=== PATIENT | female | born 1955 | race Hispanic/Latino ===

== ENCOUNTER 2017-07-06 08:30 | Observation (INO) | payer OTHER ==
[2017-07-06] MEDS ORDERED: NA CHLORIDE 0.9% 500 ML ONE (09:53)
[2017-07-06] MEDS ORDERED: ONDANSETRON 4 MG/2 ML VIAL ONE (10:06)
[2017-07-06] MEDS ORDERED: FAMOTIDINE 20 MG/2 ML VIAL IV ONE (10:06)
[2017-07-06] MEDS ORDERED: METRONIDAZOLE 500mg IVPB 500 MG/100 ML BAG IV ONE (10:06)
[2017-07-06] MEDS ORDERED: CIPROFLOXACIN 400mg IV 400 MG/200 ML BAG IV ONE (10:06)
[2017-07-06] MEDS ORDERED: FENTANYL CITR 100 MCG/2 ML ONE (10:08)
[2017-07-06 10:10] LABS: Potassium 3.5 mEq/L (3.6-5.0)
[2017-07-06 10:19] LABS: CKMB Creatine Kinase MB 1.1 ng/ml (0.3-4.0)
[2017-07-06 10:47] LABS: Absolute Lymphocytes (CBC) 0.7 K/uL (0.7-4.9); Absolute Monocytes 0.8 K/uL (0.1-1.3); Absolute Neutrophil 8.5 K/uL (1.8-8.0); Basophils % 0.2 % (0-1.3); Eosinophils % 1.2 % (0-4.4); Hematocrit 40.6 % (36.0-45.0); Lymphocytes % 7.1 % (15.3-44.8); MCH 29.2 pg (27.0-35.0); MCV 88.5 fL (80-100); MPV 8.8 fL (7.6-11.3); RBC Red Blood Cell Count 4.59 M/uL (3.86-4.86)
--- NOTE | 2017-07-06 10:47 | RAD REPORT ---
EXAM DESCRIPTION: RAD - Chest Single View - 07/06/2017 9:28 am CLINICAL HISTORY: Chest pain. COMPARISON: 03/16/2017, 10/31/2011 FINDINGS: Portable technique limits examination quality. The lungs are grossly clear. The heart is normal in size. No displaced fractures. IMPRESSION: No acute intrathoracic process suspected.
[2017-07-06 10:58] LABS: Albumin 3.6 g/dL (3.2-5.5); Bilirubin Direct 0.2 mg/dL (0-0.2); Bilirubin Total 0.9 mg/dL (0.3-1.2)
[2017-07-06 10:59] LABS: Protime INR 1.05
[2017-07-06 11:01] LABS: Magnesium 1.4 mg/dL (1.8-2.5)
--- NOTE | 2017-07-06 11:20 | EDPHYS ---
Physician Documentation [facility] Name: Kathia Phipps Age: 61 yrs Sex: Female : 1955 Arrival Date: 07/06/2017 Time: 08:33 Bed 6 Private MD: Noa Riley ED Physician Selwyn Muir HPI: 07/06 09:38 This 61 yrs old Female presents to ER via Wheelchair with complaints of jessica Diarrhea, Nausea. 09:38 The patient presents to the emergency department with diarrhea, abdominal pain, of the jessica epigastric area, right upper quadrant and left upper quadrant. Onset: The symptoms/episode began/occurred 2 day(s) ago. Possible causes: unknown. The symptoms are aggravated by nothing. The symptoms are alleviated by nothing. Associated signs and symptoms: The patient has no apparent associated signs or symptoms. Severity of symptoms: At their worst the symptoms were mild moderate in the emergency department the symptoms are unchanged. Historical: - Allergies: 09:12 Morphine; iw 09:12 PENICILLINS; iw - Home Meds: 09:12 topiramate 50 mg oral tab 1 tab 2 times per day [Active]; metoprolol succinate 50 mg iw Oral Tb24 1 tab once daily [Active]; amlodipine 10 mg tab 1 tab once daily [Active]; pravastatin 20 mg Oral tab 1 tab once daily [Active]; Synthroid 200 mcg Oral tab 1 tab once daily [Active]; losartan 100 mg Oral tab 1 tab once daily [Active]; doxazosin 1 mg Oral tab 1 tab once daily [Active]; Lyrica 150 mg Oral 3 times per day [Active]; Januvia 50 mg Oral tab 1 tabs once daily [Active]; Savella 100 mg Oral tab 1 tab 2 times per day [Active]; pentoxifylline 400 mg Oral TbER 1 tab daily [Active]; Levemir 100 unit/mL subcutaneous soln 55 unit twice a day [Active]; 10:51 acetaminophen-codeine 300-30 mg Oral tab 1 tab every 4-6 hours [Active]; furosemide 80 rv mg Oral tab 1 tab once daily [Active]; insuline detemir pen [Active]; Lyrica Oral 1 cap [Active]; - PMHx: 09:12 Diabetes - IDDM; Fibromyalgia; Hypertension; Sleep Apnea; iw - PSHx: 09:12 heel spur; Tubal ligation; iw - Immunization history:: Adult Immunizations. - Ebola Screening: : Patient negative for fever greater than or equal to 101.5 degrees Fahrenheit, and additional compatible Ebola Virus Disease symptoms Patient denies exposure to infectious person Patient denies travel to an Ebola-affected area in the 21 days before illness onset No symptoms or risks identified at this time. - Social history:: Smoking status: Patient/guardian denies using tobacco, never smoked. ROS: 09:39 Constitutional: Negative for fever, chills, and weight loss, Eyes: Negative for injury, jessica pain, redness, and discharge, ENT: Negative for injury, pain, and discharge, Neck: Negative for injury, pain, and swelling, Cardiovascular: Negative for chest pain, palpitations, and edema, Respiratory: Negative for shortness of breath, cough, wheezing, and pleuritic chest pain, Back: Negative for injury and pain, : Negative for injury, bleeding, discharge, and swelling, MS/Extremity: Negative for injury and deformity, Skin: Negative for injury, rash, and discoloration, Neuro: Negative for headache, weakness, numbness, tingling, and seizure, Psych: Negative for depression, anxiety, suicide ideation, homicidal ideation, and hallucinations, Allergy/Immunology: Negative for hives, rash, and allergies, Endocrine: Negative for neck swelling, polydipsia, polyuria, polyphagia, and marked weight changes, Hematologic/Lymphatic: Negative for swollen nodes, abnormal bleeding, and unusual bruising. 09:39 Abdomen/GI: Positive for abdominal pain, of the epigastric area, right upper quadrant and left upper quadrant. Exam: 09:39 Constitutional: This is a well developed, well nourished patient who is awake, alert, jessica and in no acute distress. Head/Face: Normocephalic, atraumatic. Eyes: Pupils equal round and reactive to light, extra-ocular motions intact. Lids and lashes normal. Conjunctiva and sclera are non-icteric and not injected. Cornea within normal limits. Periorbital areas with no swelling, redness, or edema. ENT: Nares patent. No nasal discharge, no septal abnormalities noted. Tympanic membranes are normal and external auditory canals are clear. Oropharynx with no redness, swelling, or masses, exudates, or evidence of obstruction, uvula midline. Mucous membranes moist. Neck: Trachea midline, no thyromegaly or masses palpated, and no cervical lymphadenopathy. Supple, full range of motion without nuchal rigidity, or vertebral point tenderness. No Meningismus. Chest/axilla: Normal chest wall appearance and motion. Nontender with no deformity. No lesions are appreciated. Cardiovascular: Regular rate and rhythm with a normal S1 and S2. No gallops, murmurs, or rubs. Normal PMI, no JVD. No pulse deficits. Respiratory: Lungs have equal breath sounds bilaterally, clear to auscultation and percussion. No rales, rhonchi or wheezes noted. No increased work of breathing, no retractions or nasal flaring. Back: No spinal tenderness. No costovertebral tenderness. Full range of motion. Skin: Warm, dry with normal turgor. Normal color with no rashes, no lesions, and no evidence of cellulitis. MS/ Extremity: Pulses equal, no cyanosis. Neurovascular intact. Full, normal range of motion. Neuro: Awake and alert, GCS 15, oriented to person, place, time, and situation. Cranial nerves II-XII grossly intact. Motor strength 5/5 in all extremities. Sensory grossly intact. Cerebellar exam normal. Normal gait. Psych: Awake, alert, with orientation to person, place and time. Behavior, mood, and affect are within normal limits. 09:39 Abdomen/GI: Inspection: abdomen appears normal, Bowel sounds: normal, Palpation: mild abdominal tenderness, in the epigastric area, right upper quadrant and left upper quadrant, Liver: no appreciated palpable abnormalities, Hernia: not appreciated. Vital Signs: 09:06 BP 165 / 79; Pulse 99; Resp 20; Temp 98.4(TE); Pulse Ox 98% on R/A; Weight 174.63 kg; iw Height 5 ft. 2 in. (157.48 cm); Pain 10/10; 10:23 BP 164 / 140; Pulse 93; Resp 18; Pulse Ox 99% ; rv 10:53 BP 142 / 81; Pulse 98; Resp 18; Pulse Ox 100% ; rv 11:18 BP 133 / 82; Pulse 95; Resp 17; Pulse Ox 100% on R/A; hb 12:00 BP 132 / 80; Pulse 80; Resp 17; Pulse Ox 100% on R/A; hb 13:00 BP 140 / 82; Pulse 88; Resp 18; Pulse Ox 100% on R/A; hb 09:06 Body Mass Index 70.42 (174.63 kg, 157.48 cm) iw MDM: 09:00 Patient medically screened. [facility] 09:39 Data reviewed: vital signs, nurses notes, lab test result(s), EKG, radiologic studies, [facility] CT scan, plain films. 07/06 09:08 Order name: Basic Metabolic Panel [facility] 07/06 09:08 Order name: BNP [facility] 07/06 09:08 Order name: CBC with Diff; Complete Time: 11:09 [facility] 07/06 09:08 Order name: Ckmb; Complete Time: 11:09 [facility] 07/06 09:08 Order name: CPK; Complete Time: 11:09 [facility] 07/06 09:08 Order name: LFT's; Complete Time: 11:09 [facility] 07/06 09:08 Order name: Magnesium; Complete Time: 11:09 [facility] 07/06 09:08 Order name: PT-INR; Complete Time: 11:09 [facility] 07/06 09:08 Order name: Ptt, Activated; Complete Time: 11:09 [facility] 07/06 09:08 Order name: Troponin (emerg Dept Use Only); Complete Time: 11:09 [facility] 07/06 09:08 Order name: Stool Culture [facility] 07/06 09:08 Order name: Fecal Leukocyte Stain [facility] 07/06 09:08 Order name: Basic Metabolic Panel; Complete Time: 11:09 [facility] 07/06 09:08 Order name: BNP B-Type Natriuretic Peptide [facility] 07/06 09:08 Order name: XRAY Chest (1 view); Complete Time: 11:09 [facility] 07/06 09:08 Order name: EKG; Complete Time: 09:09 [facility] 07/06 09:37 Order name: CT Abd/Pelvis - W/Contrast [facility] 07/06 12:26 Order name: CT [facility] 07/06 12:37 Order name: Urine Dipstick--Ancillary (enter results) 07/06 12:42 Order name: Urine Dipstick-Ancillary [facility] 07/06 09:08 Order name: Cardiac monitoring; Complete Time: 10:18 [facility] 07/06 09:08 Order name: EKG - Nurse/Tech; Complete Time: 10:18 [facility] 07/06 09:08 Order name: IV Saline Lock; Complete Time: 10:18 [facility] 07/06 09:08 Order name: Labs collected and sent; Complete Time: 11: [facility] 07/06 09:08 Order name: O2 Per Protocol; Complete Time: 10: [facility] 07/06 09:08 Order name: O2 Sat Monitoring; Complete Time: 10: [facility] 07/06 09:08 Order name: Urine Dipstick-Ancillary (obtain specimen); Complete Time: 10:49 [facility] Administered Medications: 09:35 Not Given (Duplicate Order): NS 0.45 % with KCl 20 mEq/L 1000 ml IV at 125 ml/hr once jessica 09:45 Drug: NS 0.9% 1000 ml Route: IV; Rate: 125 ml/hr; Site: left antecubital; hb 10:45 Follow up: IV Status: Infusion continued upon admission hb 10:21 Drug: Zofran 4 mg Route: IVP; Site: left antecubital; rv 10:37 Follow up: Response: No adverse reaction; Nausea is decreased; Vomiting decreased rv 10:21 Drug: Pepcid 20 mg Route: IVP; Site: left antecubital; rv 10:37 Follow up: Response: No adverse reaction; Pain is decreased; Nausea is decreased; rv Vomiting decreased 10:22 Drug: Cipro 400 mg Volume: 200 ml; Route: IVPB; Infused Over: 60 mins; Site: left rv antecubital; 11:20 Follow up: Response: No adverse reaction; IV Status: Completed infusion hb 10:22 Drug: Flagyl 500 mg Volume: 100 ml; Route: IVPB; Rate: 200 ml/hr; Infused Over: 30 rv mins; Site: left antecubital; 11:00 Follow up: Response: No adverse reaction; IV Status: Completed infusion hb 10:22 Drug: fentaNYL (PF) 25 mcg Route: IVP; Site: left antecubital; rv 10:38 Follow up: Response: No adverse reaction; Pain is decreased rv 10:23 Drug: NS 0.9% 500 ml Volume: 500 ml; Route: IV; Rate: 1 bolus; Site: left antecubital; rv 11:00 Follow up: IV Status: Completed infusion hb 11:27 Drug: Magnesium Sulfate 2 grams Route: IVPB; Infused Over: 2 hrs; Site: left sv antecubital; 13:20 Follow up: Response: No adverse reaction; IV Status: Completed infusion hb 12:23 Drug: Potassium Effervescent Tablet 50 mEq Route: PO; rv 12:39 Follow up: Response: No adverse reaction sv Disposition: 07/06/17 11:19 Hospitalization ordered by Arturo Mercer for Inpatient Admission. Preliminary diagnosis are Diarrhea, unspecified, Abdominal tenderness, Hypokalemia, Type 1 diabetes mellitus, Hypomagnesemia, Obesity, unspecified. - Bed requested for Telemetry/MedSurg (Inpatient). - Status is Inpatient Admission. sv - Condition is Fair. - Problem is new. - Symptoms have improved. UTI on Admission? Yes Signatures: Dispatcher [employer] EDMS Katlin Martínez, RN RN sv Tia Ramirez RN NICOLE dw Selwyn Muir MD MD cha Williams, Irene, RN RN Traci Parada RN RN Amol Calvillo RN RN rv Corrections: (The following items were deleted from the chart) 11:33 11:19 Hospitalization Ordered by Arturo Mercer DO for Inpatient Admission. Preliminary diagnosis is Diarrhea, unspecified; Abdominal tenderness; Hypokalemia; Type 1 diabetes mellitus; Hypomagnesemia; Obesity, unspecified. Bed requested for Telemetry/MedSurg (Inpatient). Status is Inpatient Admission. Condition is Fair. Problem is new. Symptoms have improved. UTI on Admission? Yes. [facility] 13:23 11:33 07/06/2017 11:19 Hospitalization Ordered by Arturo Mercer DO for Inpatient sv Admission. Preliminary diagnosis is Diarrhea, unspecified; Abdominal tenderness; Hypokalemia; Type 1 diabetes mellitus; Hypomagnesemia; Obesity, unspecified. Bed requested for Telemetry/MedSurg (Inpatient). Status is Inpatient Admission. Condition is Fair. Problem is new. Symptoms have improved. UTI on Admission? Yes. dw
--- NOTE | 2017-07-06 11:20 | ER ---
Nurse's Notes [facility] Name: Kathia Phipps Age: 61 yrs Sex: Female : 1955 Arrival Date: 07/06/2017 Time: 08:33 Bed 6 Private MD: Noa Riley Diagnosis: Diarrhea, unspecified;Abdominal tenderness;Hypokalemia;Type 1 diabetes mellitus;Hypomagnesemia;Obesity, unspecified Presentation: 07/06 09:03 Presenting complaint: Patient states: has had diarrhea since Sunday, also has had abd iw cramping. Transition of care: patient was not received from another setting of care. Onset of symptoms was July 02, 2017. Risk Assessment: Do you want to hurt yourself or someone else? Patient reports no desire to harm self or others. Initial Sepsis Screen: Does the patient meet any 2 criteria? No. Patient's initial sepsis screen is negative. Does the patient have a suspected source of infection? No. Patient's initial sepsis screen is negative. Care prior to arrival: None. 09:03 Method Of Arrival: Wheelchair iw 09:03 Acuity: ISSAC 3 iw Historical: - Allergies: 09:12 Morphine; iw 09:12 PENICILLINS; iw - Home Meds: 09:12 topiramate 50 mg oral tab 1 tab 2 times per day [Active]; metoprolol succinate 50 mg iw Oral Tb24 1 tab once daily [Active]; amlodipine 10 mg tab 1 tab once daily [Active]; pravastatin 20 mg Oral tab 1 tab once daily [Active]; Synthroid 200 mcg Oral tab 1 tab once daily [Active]; losartan 100 mg Oral tab 1 tab once daily [Active]; doxazosin 1 mg Oral tab 1 tab once daily [Active]; Lyrica 150 mg Oral 3 times per day [Active]; Januvia 50 mg Oral tab 1 tabs once daily [Active]; Savella 100 mg Oral tab 1 tab 2 times per day [Active]; pentoxifylline 400 mg Oral TbER 1 tab daily [Active]; Levemir 100 unit/mL subcutaneous soln 55 unit twice a day [Active]; 10:51 acetaminophen-codeine 300-30 mg Oral tab 1 tab every 4-6 hours [Active]; furosemide 80 rv mg Oral tab 1 tab once daily [Active]; insuline detemir pen [Active]; Lyrica Oral 1 cap [Active]; - PMHx: 09:12 Diabetes - IDDM; Fibromyalgia; Hypertension; Sleep Apnea; iw - PSHx: 09:12 heel spur; Tubal ligation; iw - Immunization history:: Adult Immunizations. - Ebola Screening: : Patient negative for fever greater than or equal to 101.5 degrees Fahrenheit, and additional compatible Ebola Virus Disease symptoms Patient denies exposure to infectious person Patient denies travel to an Ebola-affected area in the 21 days before illness onset No symptoms or risks identified at this time. - Social history:: Smoking status: Patient/guardian denies using tobacco, never smoked. Screenin:08 Abuse screen: Denies threats or abuse. Denies injuries from another. Nutritional hb screening: No deficits noted. Tuberculosis screening: No symptoms or risk factors identified. Fall Risk Total Orozco Fall Scale indicates Low Risk Score (25-44 pts). Fall prevention measures have been instituted. Side Rails Up X 2 Frequent Obs/Assesments occuring As available Patient and Family Educated on Fall Prevention Program and strategies. Assessment: 09:23 General: Appears in no apparent distress. comfortable, Behavior is calm, cooperative. rv Pain: Denies pain. Neuro: No deficits noted. Neuro: Level of Consciousness is awake, alert, obeys commands, Oriented to person, place, time, situation. Cardiovascular: Capillary refill < 3 seconds. Respiratory: Breath sounds are clear. GI: Reports lower abdominal pain, diarrhea, nausea, vomiting. : No signs and/or symptoms were reported regarding the genitourinary system. EENT: No signs and/or symptoms were reported regarding the EENT system. Derm: No signs and/or symptoms reported regarding the dermatologic system. 10:15 Reassessment: Patient appears in no apparent distress at this time. No changes from sv previously documented assessment. Patient and/or family updated on plan of care and expected duration. Pain level reassessed. Patient is alert, oriented x 3, equal unlabored respirations, skin warm/dry/pink. 11:15 Reassessment: Patient appears in no apparent distress at this time. Patient and/or hb family updated on plan of care and expected duration. Pain level reassessed. Patient is alert, oriented x 3, equal unlabored respirations, skin warm/dry/pink. 12:00 Reassessment: Patient appears in no apparent distress at this time. No changes from hb previously documented assessment. Patient and/or family updated on plan of care and expected duration. Pain level reassessed. Patient is alert, oriented x 3, equal unlabored respirations, skin warm/dry/pink. 13:00 Reassessment: Patient appears in no apparent distress at this time. No changes from hb previously documented assessment. Patient and/or family updated on plan of care and expected duration. Pain level reassessed. Patient is alert, oriented x 3, equal unlabored respirations, skin warm/dry/pink. Vital Signs: 09:06 BP 165 / 79; Pulse 99; Resp 20; Temp 98.4(TE); Pulse Ox 98% on R/A; Weight 174.63 kg; iw Height 5 ft. 2 in. (157.48 cm); Pain 10/10; 10:23 BP 164 / 140; Pulse 93; Resp 18; Pulse Ox 99% ; rv 10:53 BP 142 / 81; Pulse 98; Resp 18; Pulse Ox 100% ; rv 11:18 BP 133 / 82; Pulse 95; Resp 17; Pulse Ox 100% on R/A; hb 12:00 BP 132 / 80; Pulse 80; Resp 17; Pulse Ox 100% on R/A; hb 13:00 BP 140 / 82; Pulse 88; Resp 18; Pulse Ox 100% on R/A; hb 09:06 Body Mass Index 70.42 (174.63 kg, 157.48 cm) iw Vitals: 10:53 Cardiac Rhythm Assessment Regular. rv ED Course: 08:33 Patient arrived in ED. mr 08:33 Noa Riley MD is Private Physician. mr 09:00 Selwyn Muir MD is Attending Physician. [facility] 09:03 Traci Parada, NICOLE is Primary Nurse. hb 09:07 Triage completed. iw 09:25 X-ray completed. Portable x-ray completed in exam room. Patient tolerated procedure ag1 well. 09:26 XRAY Chest (1 view) In Process Unspecified. EDMS 09:26 Inserted saline lock: 20 gauge in left antecubital area, using aseptic technique. rv 09:41 EKG done, by sterile instrument technician. reviewed by Selwyn Muir MD. tc 10:48 Urine collected: clean catch specimen, cloudy, jefry colored. jb1 10:48 Arm band placed on right wrist. rv 10:52 Patient has correct armband on for positive identification. Placed in gown. Bed in low rv position. Call light in reach. Side rails up X2. Adult w/ patient. Pulse ox on. NIBP on. Sitter at bedside. Head of bed elevated. 11:01 Notified ED physician of a critical lab result(s). magnesium-1.4. hb 11:13 Arturo Mercer DO is Hospitalizing Provider. jessica 12:05 CT completed. Patient tolerated procedure well. Patient moved to CT via stretcher. Patient moved back from CT. 12:39 Urine Dipstick--Ancillary (enter results) Sent. sv 12:39 CT Abd/Pelvis - W/Contrast Sent. sv 12:42 No provider procedures requiring assistance completed. Patient admitted, IV remains in sv place. intact. Administered Medications: 09:35 Not Given (Duplicate Order): NS 0.45 % with KCl 20 mEq/L 1000 ml IV at 125 ml/hr once jessica 09:45 Drug: NS 0.9% 1000 ml Route: IV; Rate: 125 ml/hr; Site: left antecubital; hb 10:45 Follow up: IV Status: Infusion continued upon admission hb 10:21 Drug: Zofran 4 mg Route: IVP; Site: left antecubital; rv 10:37 Follow up: Response: No adverse reaction; Nausea is decreased; Vomiting decreased rv 10:21 Drug: Pepcid 20 mg Route: IVP; Site: left antecubital; rv 10:37 Follow up: Response: No adverse reaction; Pain is decreased; Nausea is decreased; rv Vomiting decreased 10:22 Drug: Cipro 400 mg Volume: 200 ml; Route: IVPB; Infused Over: 60 mins; Site: left rv antecubital; 11:20 Follow up: Response: No adverse reaction; IV Status: Completed infusion hb 10:22 Drug: Flagyl 500 mg Volume: 100 ml; Route: IVPB; Rate: 200 ml/hr; Infused Over: 30 rv mins; Site: left antecubital; 11:00 Follow up: Response: No adverse reaction; IV Status: Completed infusion hb 10:22 Drug: fentaNYL (PF) 25 mcg Route: IVP; Site: left antecubital; rv 10:38 Follow up: Response: No adverse reaction; Pain is decreased rv 10:23 Drug: NS 0.9% 500 ml Volume: 500 ml; Route: IV; Rate: 1 bolus; Site: left antecubital; rv 11:00 Follow up: IV Status: Completed infusion hb 11:27 Drug: Magnesium Sulfate 2 grams Route: IVPB; Infused Over: 2 hrs; Site: left sv antecubital; 13:20 Follow up: Response: No adverse reaction; IV Status: Completed infusion hb 12:23 Drug: Potassium Effervescent Tablet 50 mEq Route: PO; rv 12:39 Follow up: Response: No adverse reaction sv Outcome: 11:19 Decision to Hospitalize by Provider. [facility] 12:43 Admitted to Tele accompanied by tech, via wheelchair, room 224, with chart, Report sv called to Dylon RIVERA 12:43 Condition: stable 12:43 Instructed on the need for admit. 13:23 Patient left the ED. sv Signatures: Dispatcher [employer] EDMS Ramesh Cifuentes [email or web address] Katlin Martínez RN RN sv Selwyn Muir MD MD cha Rivera, Maria mr Sylvie, Tita Louis RN RN iw Lisa Acuña, pattern grader EKG Ese Bah ag1 Traci Parada RN RN hb Amol Calvillo RN RN rv Corrections: (The following items were deleted from the chart) 09:13 09:06 BP 165 / 79; Pulse 99bpm; Resp 20bpm; Pulse Ox 98% RA; Temp 98.4F Temporal; Pain iw 10; hb
[2017-07-06] MEDS ORDERED: Magnesium Sulfate 2gm IVPB 2 G/50 ML BAG IV ONE (11:24)
[2017-07-06] MEDS ORDERED: D50W 25 GM/50 ML SYRINGE IV PRN ×2 (11:27→13:26)
[2017-07-06] MEDS ORDERED: GLUCAGON 1 MG/VIAL IM PRN ×2 (11:27→13:26)
[2017-07-06] MEDS ORDERED: POTASSIUM 25 MEQ EFFERV TAB ONE (12:18)
--- NOTE | 2017-07-06 12:26 | RAD REPORT ---
EXAM DESCRIPTION: CTAbdomen Pelvis W Contrast - 07/06/2017 12:09 pm CLINICAL HISTORY: Abdominal pain. COMPARISON: None. TECHNIQUE: Biphasic CT imaging of the abdomen and pelvis was performed with 100 ml non-ionic IV cont rast. All CT scans are performed using dose optimization technique as appropriate and may include automated exposure control or mA/KV adjustment according to patient size. FINDINGS: The lung bases are clear. The liver, spleen, pancreas, adrenal glands and kidneys are within normal limits. Cholelithiasis. No bowel obstruction, free air, free fluid or abscess. Small fat containing umbilical hernia. The anuel endix is normal. No evidence of significant lymphadenopathy. Moderate lumbar degenerative changes. IMPRESSION: No acute intra-abdominal or pelvic finding. Cholelithiasis. Small fat containing umbilical hernia.
[2017-07-06 12:42] LABS: Urine Blood NEGATIVE (NEG); Urine Glucose NEGATIVE (NEG); Urine Protein NEGATIVE (NEG)
--- NOTE | 2017-07-06 13:17 | P.HP ---
Certification for Inpatient Patient admitted to: Observation With expected LOS: <2 Midnights Patient will require the following post-hospital care: None Practitioner: I am a practitioner with admitting privileges, knowledge of patient current condition, hospital course, and medical plan of care. Services: Services provided to patient in accordance with Admission requirements found in Title 42 Section 412.3 of the Code of Federal Regulations Patient History Date of Service: 07/06/17 Primary Care Provider: Osvaldo Reason for admission: Diarrhea, dehydration, hypomagnesmia History of Present Illness: This is a 61 y/o F patient that presented to the ED after having continued diarrhea and abdominal pain for the past week. Stated that she still is unable to keep solids down. Denies fevers. Denies blood in stool. Patient had decreased bicarb, magnesium, and potassium in ED. Cholelithiasis shown on CT without any other acute findings Allergies latex Allergy (Verified 10/25/11 23:04) Hives/Rash morphine Allergy (Verified 03/17/17 06:49) Hallucination Penicillins Allergy (Verified 03/17/17 06:49) palpatations Home medications list reviewed: Yes Home Medications: Amlodipine Besylate [Norvasc] 10 mg PO DAILY 10/25/11 Acetaminophen with Codeine [Acetaminophen-Cod #3 Tablet] 1 each PO Q3HR PRN 04/29 Doxazosin [Cardura*] 1 mg PO BEDTIME 03/17/17 Furosemide 80 mg PO DAILY PRN 03/17/17 Insulin Detemir [Levemir Flextouch] 55 units SQ BID 03/17/17 Levothyroxine Sodium [Synthroid] 200 mcg PO DAILY 03/17/17 Losartan Potassium 100 mg PO DAILY 03/17/17 Metoprolol Succinate 50 mg PO BEDTIME 03/17/17 Milnacipran HCl [Savella] 100 mg PO BID 03/17/17 Pentoxifylline 400 mg PO BEDTIME 03/17/17 Pravastatin Sodium 20 mg PO BEDTIME 03/17/17 Pregabalin [Lyrica] 100 mg PO BID 03/17/17 Sitagliptin Phosphate [Januvia] 50 mg PO DAILY 03/17/17 Acetam/Caff/Butal [Fioricet*] 1 tab PO Q4H PRN #20 tab 03/19/17 Levofloxacin [Levaquin*] 750 mg PO DAILY #5 tab 03/19/17 Topiramate [Topamax*] 50 mg PO BID #20 tab 03/19/17 - Past Medical/Surgical History Has patient received pneumonia vaccine in the past: No Diabetic: Yes -: Diabetes -: vitiligo -: Fibromyalgia -: Hypothyroidism -: HTN -: Vit D deficient -: Heel spur repair -: Tubal ligation - Family History Father -: Heart disease, Hypertension, Diabetes, Stroke Mother Notes: STELLA'S DISEASE, MYASTENIA GRAVIS - Social History Smoking Status: Never smoker Smoking therapy provided: No Alcohol use: No CD- Drugs: No Caffeine use: No Review of Systems General: As per HPI Eyes: Unremarkable ENT: Unremarkable Respiratory: Unremarkable Cardiovascular: Unremarkable Gastrointestinal: Nausea, Vomiting, Abdominal Pain, Diarrhea Musculoskeletal: Unremarkable Integumentary: Unremarkable Neurological: Unremarkable Lymphatics: Unremarkable Physical Examination - Vital Signs Temperature: 98.4 F Blood Pressure: 133/82 Pulse: 95 Respirations: 18 Pulse Ox (%): 100 - Physical Exam General: Alert, In no apparent distress, Oriented x3, Cooperative, Obese HEENT: Normocephalic, PERRLA, Mucous membr. moist/pink, EOMI Neck: Supple, 2+ carotid pulse no bruit, JVD not distended, No Thyromegaly, No LAD Respiratory: Clear to auscultation bilaterally, Normal air movement Cardiovascular: No edema, Normal pulses, Regular rate/rhythm, Normal S1 S2, No gallops, No rubs, No murmurs Capillary refill: <2 Seconds Gastrointestinal: Normal bowel sounds, Non-distended, No ascites (Mild tenderness to RUQ, epigastrium, and LUQ of abdomen), No masses, No rebound, No guarding Musculoskeletal: No clubbing, No swelling, No contractures, No erythema, No tenderness, No warmth Integumentary: No rashes, No breakdown, No significant lesion, No tenderness/ swelling, No erythema, No cyanosis Neurological: Normal gait, Normal speech, Normal strength at 5/5 x4 extr, Normal tone, Sensation intact, Cranial nerves 3-12 intact, Normal affect - Studies Laboratory Data (last 24 hrs) 07/06/17 10:30: PT 12.4, INR 1.05, APTT 28.0 07/06/17 10:30: WBC 10.1, Hgb 13.4, Hct 40.6, Plt Count 174 07/06/17 10:30: B-Natriuretic Peptide 16 07/06/17 09:45: Sodium 136, Potassium 3.5 L, BUN 10, Creatinine 0.81, Glucose 186 H, Magnesium 1.4 L*, Total Bilirubin 0.9, AST 17, ALT 22, Alkaline Phosphatase 82 Assessment and Plan - Problems (Diagnosis) (1) Abdominal pain Current Visit: Yes Status: Acute (2) Dehydration Current Visit: Yes Status: Acute (3) Hypomagnesemia Current Visit: Yes Status: Acute (4) Hypokalemia Current Visit: Yes Status: Acute (5) Diarrhea Current Visit: Yes Status: Acute (6) Diabetes Onset Date: 03/19/17 Current Visit: No Status: Chronic Qualifiers: Diabetes mellitus type: type 2 Diabetes mellitus complication status: with circulatory complication - Plan Patient will be monitored overnight. Will continue antibiotics for persistent diarrhea. Pending stool cultures. Will treat accordingly when they come back. Pain medication as needed for abdominal discomfort. To continue IV hydration and replace magnesium and potassium. Recheck labs in AM. Clear liquids for now and advance as tolerated. If patient is feeling better in the morning and labs are stable will send home on antibiotics and to follow up with GI. No suspicion for cholecystitis or choledocholithiasis at this time. Patient can follow up with GI for cholelithiasis noted on CT Discharge Plan: Home Plan to discharge in: 24 Hours - Advance Directives Does patient have a Living Will: No Does patient have a Durable POA for Healthcare: No - Code Status/Comfort Care Code Status Assessed: Yes Code Status: Full Code
[2017-07-06] MEDS ORDERED: ACETAMINOPHEN 500 MG TAB PO PRN (13:26)
[2017-07-06 13:33] VITALS: BMI 70.4
[2017-07-06] MEDS: NA CHLORIDE 0.9% 1,000 ML IV SCH ×2 (14:05→23:12)
[2017-07-06] MEDS: DICYCLOMINE HCL 10 MG CAP PO SCH ×2 (14:05→20:23)
[2017-07-06] MEDS: INSULIN -REGULAR HUMAN 50 UNIT/0.5 ML ML SQ SCH ×2 (16:06→21:00)
[2017-07-06] MEDS: ONDANSETRON 4 MG/2 ML VIAL IV PRN (16:10)
[2017-07-06] MEDS: LOPERAMIDE HCL 2 MG CAPSULE PO PRN ×2 (16:10→23:12)
[2017-07-06] MEDS: METRONIDAZOLE 500mg IVPB 500 MG/100 ML BAG IV SCH ×2 (17:19→23:12)
--- NOTE | 2017-07-06 17:39 | EKG ---
Test Date: 2017-07-06 Test Time: 09:30:13 Clinical Nurse Leader: ELMER MEASUREMENT RESULTS: Intervals: Rate: 95 [place]: 154 QRSD: 80 QT: 368 QTc: 462 [place]: P: 48 [place]: 154 QRS: 8 T: 52 INTERPRETIVE STATEMENTS: Normal sinus rhythm Normal ECG Compared to ECG 03/17/2017 08:16:21 Accelerated junctional rhythm no longer present Electronically Signed On 07-06-17 17:36:57 CDT by Edilberto Hernandez
[2017-07-06] MEDS: LACTOBACILLUS/ACIDOPHILUS TAB PO SCH (20:23)
[2017-07-06] MEDS: CIPROFLOXACIN 400mg IV 400 MG/200 ML BAG IV SCH (20:23)
[2017-07-06] MEDS: FENTANYL CITR 100 MCG/2 ML IV PRN (20:24)
[2017-07-06 21:47] VITALS: O2SAT 97
[2017-07-07] MEDS: FENTANYL CITR 100 MCG/2 ML IV PRN ×3 (00:08→08:14)
[2017-07-07] MEDS: ONDANSETRON 4 MG/2 ML VIAL IV PRN ×2 (02:25→08:14)
[2017-07-07 03:16] LABS: Urine Appearance CLOUDY; Urine Blood 3+ (NEG); Urine Color DK YELLOW; Urine Glucose NEGATIVE (NEG); Urine Protein 1+ (NEG); Urine Specific Gravity 1.025 (1.005-1.030); Urine Urobilinogen 0.2 mg/dL (0.2-1.0)
[2017-07-07 03:23] LABS: Urine Microscopic Reflex ORDER UMIC
[2017-07-07 03:26] LABS: Urine Bilirubin NEGATIVE (NEG)
[2017-07-07 03:33] LABS: Urine Bacteria 20-50 /HPF (<20); Urine Culture Reflex Order REFLEXED; Urine RBC 20-50 /HPF (NONE SEEN)
[2017-07-07] MEDS: METRONIDAZOLE 500mg IVPB 500 MG/100 ML BAG IV SCH (05:03)
[2017-07-07 05:17] LABS: Absolute Lymphocytes (CBC) 1.2 K/uL (0.7-4.9); Absolute Monocytes 0.9 K/uL (0.1-1.3); Absolute Neutrophil 6.3 K/uL (1.8-8.0); Basophils % 0.3 % (0-1.3); Eosinophils % 2.6 % (0-4.4); Hematocrit 39.8 % (36.0-45.0); Lymphocytes % 13.6 % (15.3-44.8); MCH 28.9 pg (27.0-35.0); MCV 89.4 fL (80-100); MPV 9.3 fL (7.6-11.3); Monocytes % 10.6 % (3.3-12.3); RBC Red Blood Cell Count 4.46 M/uL (3.86-4.86)
[2017-07-07 05:47] LABS: Albumin 3.2 g/dL (3.2-5.5); Bilirubin Direct 0.2 mg/dL (0-0.2); Bilirubin Total 0.9 mg/dL (0.3-1.2); Magnesium 1.6 mg/dL (1.8-2.5); Potassium 3.5 mEq/L (3.6-5.0); Protein, Total 6.2 g/dL (6.0-8.3)
[2017-07-07] MEDS ORDERED: MAGNESIUM SULFATE 1 gm IVPB 1 GM/100 ML BAG IV ONE (06:30)
[2017-07-07] MEDS: INSULIN -REGULAR HUMAN 50 UNIT/0.5 ML ML SQ SCH ×2 (07:30→11:30)
[2017-07-07] MEDS ORDERED: KCL 20 MEQ/100 mL IVPB 20 MEQ/100 ML BAG IV SCH (08:00)
[2017-07-07] MEDS: DICYCLOMINE HCL 10 MG CAP PO SCH (08:15)
[2017-07-07] MEDS: LACTOBACILLUS/ACIDOPHILUS TAB PO SCH (08:15)
[2017-07-07] MEDS: NA CHLORIDE 0.9% 1,000 ML IV SCH (08:16)
[2017-07-07] MEDS: CIPROFLOXACIN 400mg IV 400 MG/200 ML BAG IV SCH (08:16)
[2017-07-07] MEDS ORDERED: AMLODIPINE 10 MG TAB PO SCH (09:00)
[2017-07-07] MEDS ORDERED: TOPIRAMATE 25 MG TAB PO SCH (09:00)
[2017-07-07] MEDS ORDERED: LOSARTAN POTASSIUM 50 MG TABLET PO SCH (09:00)
[2017-07-07] MEDS ORDERED: HOME MED 1 EA UNK (Losartan Potassium [Losartan Potassium] 100 MG) PO SCH (09:00)
[2017-07-07] MEDS ORDERED: MILNACIPRAN HCL 100 MG PO SCH (09:00)
[2017-07-07] MEDS ORDERED: PREGABALIN 50 MG CAP PO SCH (09:00)
--- NOTE | 2017-07-07 10:03 | P.DS ---
Admission Date: 07/06/17 Discharge Date: 07/07/17 Primary Care Provider: Dr. Riley Disposition: ROUTINE DISCHARGE Discharge Condition: GOOD Reason for Admission: Diarrhea, dehydration, hypomagnesmia Procedures: CT scan: FINDINGS: The lung bases are clear. The liver, spleen, pancreas, adrenal glands and kidneys are within normal limits. Cholelithiasis. No bowel obstruction, free air, free fluid or abscess. Small fat containing umbilical hernia. The appendix is normal. No evidence of significant lymphadenopathy. Moderate lumbar degenerative changes. IMPRESSION: No acute intra-abdominal or pelvic finding. Cholelithiasis. Small fat containing umbilical hernia. - Problems (1) Gastroenteritis Current Visit: Yes Status: Acute (2) Obesity Current Visit: Yes Status: Chronic Qualifiers: Obesity type: due to excess calories Obesity classification: adult class 3 (BMI >= 40) Serious obesity comorbidity presence: with serious comorbidity Body mass index: BMI 70 or greater Qualified Code(s): E66.01 - Morbid (severe ) obesity due to excess calories; Z68.45 - Body mass index (BMI) 70 or greater, adult (3) Obstructive sleep apnea Current Visit: Yes Status: Suspected (4) Abdominal pain Current Visit: Yes Status: Acute Qualifiers: Abdominal location: generalized Qualified Code(s): R10.84 - Generalized abdominal pain (5) Dehydration Current Visit: Yes Status: Acute (6) Diarrhea Current Visit: Yes Status: Acute Qualifiers: Diarrhea type: infectious Qualified Code(s): A09 - Infectious gastroenteritis and colitis, unspecified (7) Hypokalemia Current Visit: Yes Status: Acute (8) Hypomagnesemia Current Visit: Yes Status: Acute (9) UTI (urinary tract infection) Current Visit: No Status: Suspected Qualifiers: Urinary tract infection type: site unspecified Hematuria presence: without hematuria Qualified Code(s): N39.0 - Urinary tract infection, site not specified (10) Diabetes Onset Date: 03/19/17 Current Visit: No Status: Chronic Qualifiers: Diabetes mellitus type: type 2 Diabetes mellitus complication status: with other specified complication (11) Hypertension Onset Date: 03/19/17 Current Visit: No Status: Chronic Qualifiers: Hypertension type: essential hypertension Qualified Code(s): I10 - Essential (primary) hypertension (12) GERD (gastroesophageal reflux disease) Current Visit: Yes Status: Suspected Qualifiers: Esophagitis presence: esophagitis presence not specified Qualified Code(s) : K21.9 - Gastro-esophageal reflux disease without esophagitis (13) Hypothyroidism Current Visit: Yes Status: Chronic Qualifiers: Hypothyroidism type: unspecified Qualified Code(s): E03.9 - Hypothyroidism , unspecified (14) Fibromyalgia Current Visit: Yes Status: Chronic (15) Hyperlipidemia Current Visit: Yes Status: Chronic Qualifiers: Hyperlipidemia type: unspecified Qualified Code(s): E78.5 - Hyperlipidemia , unspecified Brief History of Present Illness: 61-year-old female presented to ER with diarrhea, nausea and abdominal pain. Patient evaluated in the emergency room. Patient found to have electrolyte abnormalities. The patient was admitted for observation. CT scan showed no acute obstruction, free air or abdominal abnormality. Patient with multiple medical problems including diabetes, hypertension obesity. Patient with chronic back pain. Hospital Course: During the course of her stay her condition improved. Diarrhea improved. Patient was ever would tolerate her diet. Patient likely had gastroenteritis. Patient was given IV fluids and treatment. At discharge she will continue with Cipro 500 mg 1 pill twice daily and Flagyl 500 mg 1 pill 3 times a day for 10 days. Patient will be provided simethicone for gas. Will recommend that she continue with Protonix 40 mg 1 pill once daily. Patient may take over-the- counter Imodium as needed for diarrhea. Patient may take lactobacillus over the counter 3 times a day. She is to increase her fluid intake. Recommendation is for the patient follow up with GI as an outpatient to further evaluate and monitor. Patient with diabetes. She will continue with her diabetic regimen-Levemir 55 units subcu twice daily and Januvia 50 mg 1 pill daily. Recommendation is to maintain blood sugars less 140 fasting and less than 200 after meals. Further adjustment can be done by her PCP. Patient has hypertension. She will continue with her medication-Norvasc 10 mg 1 pill daily, Cardura 1 mg daily, losartan 100 mg daily, and Toprol XL 50 mg daily. Recommendation is to maintain blood pressures less 150/80. Further adjustment can be done by her PCP. Patient may have underlying GERD. Patient will continue with Protonix 40 mg 1 pill once daily. Patient may benefit with GI evaluation as an outpatient. Patient with morbid obesity. Recommendations for the patient follow up with her PCP to consider bariatric surgery evaluation. Patient likely has obstructive sleep apnea. Recommendation is for the patient to follow up with pulmonology for sleep study to further assess and treat. Patient has chronic pain likely related to her obesity. Recommendation is for the patient to be evaluated by pain management to further address. Patient has fibromyalgia. Patient will continue with her medications including Savella 100 mg twice daily and Lyrica 100 mg 1 pill twice daily. Patient has hypothyroidism. Patient continue with Levoxyl 200 mcg daily. Patient has hyperlipidemia. Patient continue with pravastatin 20 mg 1 pill once daily Patient may have underlying UTI with her diarrhea. Patient will continue with Cipro as directed above. UTI prevention will need to be enforced. Vital Signs/Physical Exam: Temp Pulse Resp BP Pulse Ox 98.1 F 89 16 123/70 96 07/07/17 04:00 07/07/17 04:00 07/07/17 04:00 07/07/17 04:00 07/07/17 04:00 General: Alert, In no apparent distress, Oriented x3, Cooperative HEENT: Atraumatic Neck: Supple Respiratory: Clear to auscultation bilaterally, Normal air movement Cardiovascular: Normal pulses, Regular rate/rhythm Gastrointestinal: Normal bowel sounds, Soft and benign, Non-distended, No tenderness, No masses, No rebound, No guarding, Other (Patient morbidly obese) Musculoskeletal: No erythema, No tenderness, No warmth Integumentary: No tenderness/swelling, No erythema, No warmth, No cyanosis Neurological: Normal speech, Normal strength at 5/5 x4 extr, Normal tone, Normal affect Laboratory Data at Discharge: WBC 8.7 K/uL (4.3-10.9) 07/07/17 04:19 Hgb 12.9 g/dL (12.0-15.0) 07/07/17 04:19 Hct 39.8 % (36.0-45.0) 07/07/17 04:19 Plt Count 176 K/uL (152-406) 07/07/17 04:19 PT 12.4 SECONDS (9.5-12.5) 07/06/17 10:30 INR 1.05 07/06/17 10:30 APTT 28.0 SECONDS (24.3-36.9) 07/06/17 10:30 Sodium 138 mEq/L (135-145) 07/07/17 04:19 Potassium 3.5 mEq/L (3.6-5.0) L 07/07/17 04:19 BUN 9 mg/dL (6-20) 07/07/17 04:19 Creatinine 0.85 mg/dL (0.44-1.00) 07/07/17 04:19 Glucose 138 mg/dL (65-120) H 07/07/17 04:19 Magnesium 1.6 mg/dL (1.8-2.5) L 07/07/17 04:19 Total Bilirubin 0.9 mg/dL (0.3-1.2) 07/07/17 04:19 AST 15 IU/L (10-42) 07/07/17 04:19 ALT 20 IU/L (10-60) 07/07/17 04:19 Alkaline Phosphatase 73 IU/L (42-121) 07/07/17 04:19 B-Natriuretic Peptide 16 pg/ml (<=100) 07/06/17 10:30 Lipase 15 U/L (22-51) L 07/07/17 04:19 Home Medications: Amlodipine Besylate [Norvasc] 10 mg PO DAILY 10/25/11 Acetaminophen with Codeine [Acetaminophen-Cod #3 Tablet] 1 each PO Q3HR PRN 04/29 Doxazosin [Cardura*] 1 mg PO BEDTIME 03/17/17 Furosemide 80 mg PO DAILY PRN 03/17/17 Insulin Detemir [Levemir Flextouch] 55 units SQ BID 03/17/17 Levothyroxine Sodium [Synthroid] 200 mcg PO DAILY 03/17/17 Losartan Potassium 100 mg PO DAILY 03/17/17 Metoprolol Succinate 50 mg PO BEDTIME 03/17/17 Milnacipran HCl [Savella] 100 mg PO BID 03/17/17 Pentoxifylline 400 mg PO BEDTIME 03/17/17 Pravastatin Sodium 20 mg PO BEDTIME 03/17/17 Pregabalin [Lyrica] 100 mg PO BID 03/17/17 Sitagliptin Phosphate [Januvia] 50 mg PO DAILY 03/17/17 Acetam/Caff/Butal [Fioricet*] 1 tab PO Q4H PRN #20 tab 03/19/17 Topiramate [Topamax*] 50 mg PO BID #20 tab 03/19/17 Ciprofloxacin HCl [Cipro 500 MG Tablet] 500 mg PO BID #20 tab 07/07/17 Loperamide [Imodium*] 2 mg PO TID PRN #20 cap 07/07/17 Metronidazole [Flagyl] 500 mg PO Q8H #30 tablet 07/07/17 Pantoprazole [Protonix Tab] 40 mg PO DAILY #30 tab 07/07/17 Simethicone 125 mg PO TID PRN #30 capsule 07/07/17 New Medications: Ciprofloxacin HCl [Cipro 500 MG Tablet] 500 mg PO BID #20 tab Loperamide [Imodium*] 2 mg PO TID PRN #20 cap PRN Reason: Diarrhea Metronidazole [Flagyl] 500 mg PO Q8H #30 tablet Pantoprazole [Protonix Tab] 40 mg PO DAILY #30 tab Simethicone 125 mg PO TID PRN #30 capsule PRN Reason: Gas Patient Discharge Instructions: 1. Patient will need a follow up with a PCP in 1 week to follow up this hospitalization. 2. Patient presented with gastroenteritis. CT scan unremarkable. At discharge she will continue with Cipro 500 mg 1 pill twice daily and Flagyl 500 mg 1 pill 3 times a day for 10 days. Patient will be provided simethicone for gas. Will recommend that she continue with Protonix 40 mg 1 pill once daily as she may have GERD. Patient may take [id number] Imodium as needed for diarrhea. Patient may also take lactobacillus over the counter 3 times a day. She is to increase her fluid intake. Recommendation is for the patient follow up with GI as an outpatient to further evaluate and monitor. 3. Patient with diabetes. She will continue with her diabetic regimen-Levemir 55 units subcu twice daily and Januvia 50 mg 1 pill daily. Recommendation is to maintain blood sugars less 140 fasting and less than 200 after meals. Further adjustment can be done by her PCP. 4. Patient has hypertension. She will continue with her medication- Norvasc 10 mg 1 pill daily, Cardura 1 mg daily, losartan 100 mg daily, and Toprol XL 50 mg daily. Recommendation is to maintain blood pressures less 150/ 80. Further adjustment can be done by her PCP. 5. Patient may have underlying GERD. Patient will continue with Protonix 40 mg 1 pill once daily. Patient may benefit with GI evaluation as an outpatient. 6. Patient with morbid obesity. Recommendations for the patient follow up with her PCP to consider bariatric surgery evaluation. 7. Patient likely has obstructive sleep apnea. Recommendation is for the patient to follow up with pulmonology for sleep study to further assess and treat. 8. Patient has chronic pain likely related to her obesity. Recommendation is for the patient to be evaluated by pain management to further address. 9. Patient has fibromyalgia. Patient will continue with her medications including Savella 100 mg twice daily and Lyrica 100 mg 1 pill twice daily. 10. Patient has hypothyroidism. Patient continue with Levoxyl 200 mcg daily. 11. Patient has hyperlipidemia. Patient continue with pravastatin 20 mg 1 pill once daily. 12. Patient may have underlying UTI with her diarrhea. Patient will continue with Cipro as directed above. UTI prevention will need to be enforced. Diet: ADA Activity: Fall precautions Time spent managing pt's care (in minutes): 55
[2017-07-07 10:51] VITALS: BP 143/68; TEMP 98.9
[2017-07-07] MEDS ORDERED: ATORVASTATIN 10 MG TAB PO SCH (21:00)
[2017-07-07] MEDS ORDERED: PENTOXIFYLLINE ER 400 MG TAB PO SCH (21:00)
[2017-07-07] MEDS ORDERED: METOPROLOL XL 50 MG TAB PO SCH (21:00)
[2017-07-07] MEDS ORDERED: DOXAZOSIN 2 MG TAB PO SCH (21:00)
[2017-07-07] MEDS ORDERED: HOME MED 1 EA UNK (Pravastatin Sodium [Pravastatin Sodium] 20 MG) PO SCH (21:00)
[2017-07-08] MEDS ORDERED: LEVOTHYROXINE SOD 0.1 MG TAB PO SCH (06:00)
== END 2017-07-07 12:29 | disposition home or self-care (01) ==
LOC: ER 08:30 → ERHOLD 11:23 → INTOOBSV 11:23 → 2ND 12:43
PROVIDERS: ADMIT Physician Assistant; ATTEND Family Medicine
DX: K52.9 Noninfective gastroenteritis and colitis, unspecified (principal); E66.01 Morbid (severe) obesity due to excess calories; Z68.45 Body mass index [BMI] 70 or greater, adult; E86.0 Dehydration; E87.6 Hypokalemia; E83.42 Hypomagnesemia; E11.9 Type 2 diabetes mellitus without complications; I10 Essential (primary) hypertension; E03.9 Hypothyroidism, unspecified; M79.7 Fibromyalgia; E78.5 Hyperlipidemia, unspecified; Z88.0 Allergy status to penicillin; Z91.040 Latex allergy status
CPT/HCPCS: 36415; 71045; 74177; 80048; 80076; 81003; 81015; 82550; 82553; 82962; 83690; 83735; 83880; 84484; 85025; 85610; 85730; 87045; 87046; 87077; 87086; 87088; 87186; 89055; 93005; 96361; 96365; 96366; 96367; 96368; 96375; 99285; G0378; J0744; J2405; J3010; J3475; J7030; Q9967

== ENCOUNTER 2017-09-22 06:08 | Observation (INO) | payer OTHER ==
[2017-09-22] MEDS ORDERED: DICYCLOMINE HCL 10 MG CAP ONE (06:42)
[2017-09-22] MEDS ORDERED: ONDANSETRON 4 MG/2 ML VIAL ONE (06:42)
[2017-09-22] MEDS ORDERED: NA CHLORIDE 0.9% 1,000 ML ONE (06:42)
[2017-09-22 07:24] LABS: Absolute Lymphocytes (CBC) 0.9 K/uL (0.7-4.9); Absolute Monocytes 0.7 K/uL (0.1-1.3); Absolute Neutrophil 8.6 K/uL (1.8-8.0); Basophils % 0.3 % (0-1.3); Eosinophils % 1.4 % (0-4.4); Hematocrit 40.9 % (36.0-45.0); Lymphocytes % 8.7 % (15.3-44.8); MCV 90.6 fL (80-100); MPV 9.6 fL (7.6-11.3); Monocytes % 6.7 % (3.3-12.3); RBC Red Blood Cell Count 4.52 M/uL (3.86-4.86)
[2017-09-22 07:44] LABS: Albumin 3.5 g/dL (3.4-5.0); Bilirubin Direct 0.1 mg/dL (0-0.2); Bilirubin Total 0.4 mg/dL (0.2-1.0); Potassium 3.7 mmol/L (3.5-5.1); Protein, Total 7.8 g/dL (6.4-8.2); Thyroid Stimulating Hormone 0.4 uIU/mL (0.36-3.74)
--- NOTE | 2017-09-22 08:29 | RAD REPORT ---
EXAM DESCRIPTION: CTAbdomen Pelvis W Contrast - 09/22/2017 8:12 am CLINICAL HISTORY: Abdominal pain. abdominal pain, IV ONLY COMPARISON: Abdomen Pelvis W Contrast dated 07/06/2017 TECHNIQUE: Biphasic CT imaging of the abdomen and pelvis was performed with 100 ml non-ionic IV cont rast. All CT scans are performed using dose optimization technique as appropriate and may include automated exposure control or mA/KV adjustment according to patient size. FINDINGS: The lung bases are clear.Cholelithiasis. The liver, spleen, pancreas, adrenal glands and kidneys are within normal limits. No bowel obstruction, free air, free fluid or abscess. Small fat containing umbilical hernia. The anuel endix is normal. No evidence of significant lymphadenopathy. Moderate lumbosacral degenerative changes. IMPRESSION: Cholelithiasis. No significant change since 07/06/2017.
--- NOTE | 2017-09-22 08:30 | RAD REPORT ---
EXAM DESCRIPTION: US - Abdomen Exam Limited - 09/22/2017 7:39 am CLINICAL HISTORY: ABD PAIN COMPARISON: RP EXAM COMPLETE dated 10/29/2011 FINDINGS: The gallbladder demonstrates extensive shadowing gallstones. No pericholecystic fluid or g allbladder wall thickening. The common bile duct is normal measuring 6 mm. The liver demonstrates no findings of intrahepatic biliary dilatation. IMPRESSION: Cholelithiasis.
[2017-09-22] MEDS ORDERED: FENTANYL CITR 100 MCG/2 ML ONE (08:37)
[2017-09-22] MEDS ORDERED: METOCLOPRAMIDE 10 MG/2mL INJ ONE (09:09)
[2017-09-22] MEDS ORDERED: NA CHLORIDE 0.9% 250 ML ONE (09:09)
[2017-09-22] MEDS ORDERED: HYDRALAZINE HCL 20 MG/ML VIAL IV PRN (09:27)
[2017-09-22] MEDS ORDERED: FENTANYL CITR 100 MCG/2 ML IV PRN (09:27)
[2017-09-22] MEDS ORDERED: TRAMADOL HCL 50 MG TAB PO PRN (09:27)
[2017-09-22] MEDS ORDERED: HYDROCODONE/APAP 7.5/325 MG TAB PO PRN (09:27)
[2017-09-22] MEDS ORDERED: ONDANSETRON 4 MG/2 ML VIAL IV PRN (09:27)
[2017-09-22] MEDS ORDERED: SODIUM CHLORIDE 0.9% 10ML INJ IV PRN (09:27)
--- NOTE | 2017-09-22 09:34 | EDPHYS ---
Physician Documentation [facility] Name: Kathia Phipps Age: 62 yrs Sex: Female : 1955 Arrival Date: 09/22/2017 Time: 06:10 Bed 7 Private MD: Noa Riley ED Physician Perez Terry HPI: 09/22 06:38 This 62 yrs old Female presents to ER via Wheelchair with complaints of jmm Abdominal Cramping, Weakness, Diarrhea, DEHYDRATION. 06:38 The patient presents with abdominal pain in the upper abdomen. Onset: The jmm symptoms/episode began/occurred gradually, 1 day(s) ago. The symptoms do not radiate. Associated signs and symptoms: Pertinent positives: nausea and vomiting, diarrhea. The symptoms are described as achy, crampy. Modifying factors: The symptoms are alleviated by nothing, the symptoms are aggravated by. This is a 62 year old female with a history of DM, HTN, hypothyroidism, that presents to the ED with abdominal cramping, vomiting, diarrhea. Patient states her grandson recently had diarrhea. Denies recent antibiotic use. . Historical: - Allergies: 06:29 Morphine; tl2 06:29 PENICILLINS; tl2 - Home Meds: 06:29 acetaminophen-codeine 300-30 mg Oral tab 1 tab every 4-6 hours [Active]; amlodipine 10 tl2 mg tab 1 tab once daily [Active]; doxazosin 1 mg Oral tab 1 tab once daily [Active]; furosemide 80 mg Oral tab 1 tab once daily [Active]; insuline detemir pen [Active]; Januvia 50 mg Oral tab 1 tabs once daily [Active]; Levemir 100 unit/mL subcutaneous soln 55 unit twice a day [Active]; losartan 100 mg Oral tab 1 tab once daily [Active]; Lyrica Oral 1 cap [Active]; Lyrica 150 mg Oral 3 times per day [Active]; metoprolol succinate 50 mg Oral Tb24 1 tab once daily [Active]; pentoxifylline 400 mg Oral TbER 1 tab daily [Active]; pravastatin 20 mg Oral tab 1 tab once daily [Active]; Savella 100 mg Oral tab 1 tab 2 times per day [Active]; Synthroid 200 mcg Oral tab 1 tab once daily [Active]; topiramate 50 mg Oral tab 1 tab 2 times per day [Active]; - PMHx: 06:29 Diabetes - IDDM; Fibromyalgia; Hypertension; Sleep Apnea; tl2 - Immunization history:: Adult Immunizations up to date. - Social history:: Smoking status: Patient/guardian denies using tobacco. - Ebola Screening: : No symptoms or risks identified at this time. ROS: 06:30 Cardiovascular: Negative for chest pain, palpitations, and edema, Respiratory: Negative jmm for shortness of breath, cough, wheezing, and pleuritic chest pain. 06:30 Constitutional: Positive for body aches, fatigue, malaise. 06:30 Abdomen/GI: Positive for abdominal pain, nausea and vomiting, diarrhea. 06:30 Neuro: Positive for weakness. 06:30 All other systems are negative. Exam: 06:30 Head/Face: atraumatic. Chest/axilla: Normal chest wall appearance and motion. jmm Cardiovascular: Regular rate and rhythm. No edema appreciated Respiratory: Normal respirations, no respiratory distress appreciated 06:30 Constitutional: The patient appears in no acute distress, alert, awake. 06:30 Constitutional: The patient appears anxious, uncomfortable. 06:30 Abdomen/GI: Inspection: obese Bowel sounds: normal, Palpation: soft, moderate abdominal tenderness, in all quadrants. 06:30 Back: ROM is normal. 06:30 Musculoskeletal/extremity: ROM: intact in all extremities. 06:30 Skin: Appearance: Color: normal in color. 06:30 Neuro: Orientation: is normal, Mentation: is normal, Memory: is normal. 06:30 Psych: Behavior/mood is pleasant, cooperative. Vital Signs: 06:29 BP 144 / 74; Pulse 110; Resp 20; Temp 98.8(O); Pulse Ox 98% on R/A; Weight 175.09 kg; tl2 Height 5 ft. 2 in. (157.48 cm); Pain 10/10; 07:06 BP 132 / 75; Pulse 93; Resp 18; Pulse Ox 96% ; sv 08:30 BP 124 / 71; Pulse 93; Resp 18; Pulse Ox 97% ; Pain 10/10; sv 09:48 BP 128 / 73; Pulse 92; Resp 18; Pulse Ox 97% ; sv 06:29 Body Mass Index 70.60 (175.09 kg, 157.48 cm) tl2 MDM: 06:28 Patient medically screened. jmm 09:31 Data reviewed: vital signs, nurses notes, radiologic studies, CT scan, ultrasound. [facility] Counseling: I had a detailed discussion with the patient and/or guardian regarding: the historical points, exam findings, and any diagnostic results supporting the discharge/admit diagnosis, the need for further work-up and treatment in the hospital. Response to treatment: the patient's symptoms have mildly improved after treatment. ED course: Patient states home zofran did not relieve vomiting at home. Patient is still nauseous in the ED with abdominal pain. There are concerns the patient will not be able to tolerate PO with oral medications. I discussed the patient with Dr. Mercer whom accepted admission.. 09/22 06:29 Order name: Amylase, Serum; Complete Time: 08:05 [facility] 09/22 06:29 Order name: Basic Metabolic Panel; Complete Time: 08:05 [facility] 09/22 06:29 Order name: CBC with Diff; Complete Time: 08:05 [facility] 09/22 06:29 Order name: Creatinine for Radiology; Complete Time: 08:05 [facility] 09/22 06:29 Order name: Hepatic Function; Complete Time: 08:05 [facility] 09/22 06:29 Order name: Lipase; Complete Time: 08:05 [facility] 09/22 06:29 Order name: Urine Microscopic Only; Complete Time: 10:12 [facility] 09/22 06:34 Order name: CT Abd/Pelvis - W/Contrast; Complete Time: 08:33 [facility] 09/22 06:37 Order name: US Abdomen Limited; Complete Time: 08:33 [facility] 09/22 07:13 Order name: Thyroid Stimulating Hormone; Complete Time: 08:05 [facility] 09/22 09:49 Order name: Urine Dipstick--Ancillary (enter results); Complete Time: 09:53 09/22 06:29 Order name: IV Saline Lock; Complete Time: 06:32 [facility] 09/22 06:29 Order name: Labs collected and sent; Complete Time: 06:32 [facility] 09/22 06:29 Order name: Urine Dipstick-Ancillary (obtain specimen); Complete Time: 09:45 [facility] 09/22 09:37 Order name: CONS Physician Consult [facility] 09/22 09:37 Order name: Physical Therapy Consult [facility] 09/22 09:37 Order name: Clear Liquid EDMS Administered Medications: 06:44 Drug: NS 0.9% 1000 ml Route: IV; Rate: 1 bolus; Site: left antecubital; bp 07:45 Follow up: Response: No adverse reaction; IV Status: Completed infusion; IV Intake: sv 1000ml 06:44 Drug: Zofran 4 mg Route: IVP; Site: left antecubital; bp 07:26 Follow up: Response: No adverse reaction sv 06:44 Drug: Bentyl 20 mg Route: PO; bp 07:26 Follow up: Response: No adverse reaction sv 08:37 Drug: fentaNYL (PF) 50 mcg Route: IVP; Site: left antecubital; sv 09:10 Follow up: Response: No adverse reaction sv 09:10 Drug: Reglan 10 mg Route: IVP; Site: left antecubital; sv 09:25 Follow up: Response: No adverse reaction sv 09:10 Drug: NS 0.9% 250 ml Route: IV; Rate: bolus; Site: left antecubital; sv 09:25 Follow up: Response: No adverse reaction; IV Status: Completed infusion; IV Intake: sv 250ml Disposition: 18 09:33 Hospitalization ordered by Arturo Mercer for Observation. Preliminary diagnosis are Vomiting, Diarrhea, unspecified, Other abdominal pain. - Bed requested for Telemetry/MedSurg (observation). - Status is Observation. sv - Condition is Stable. - Problem is new. - Symptoms have improved. UTI on Admission? No Addendum: 09/25/2017 19:02 Co-signature as Attending Physician, Perez peña Signatures: Dispatcher [facility] Katlin Martínez RN RN sv Lam, Pin, MD MD pkl Mickail, Joel, PA PA jmm Knox, Taylor, RN RN tl2 Anant Blake, RN RN Sania Doll Corrections: (The following items were deleted from the chart) 09/22 07:12 06:44 THYROID STIMULAT HORMONE+C.LAB.BRZ ordered. EDIL EDIL 09:34 09:33 Hospitalization Ordered by Arturo Mercer DO for Observation. Preliminary eb diagnosis is Vomiting; Diarrhea, unspecified; Other abdominal pain. Bed requested for Telemetry/MedSurg (observation). Status is Observation. Condition is Stable. Problem is new. Symptoms have improved. UTI on Admission? No. jmm 09:47 09:34 09/22/2017 09:33 Hospitalization Ordered by Arturo Mercer DO for Observation. eb Preliminary diagnosis is Vomiting; Diarrhea, unspecified; Other abdominal pain. Bed requested for Telemetry/MedSurg (observation). Status is Observation. Condition is Stable. Problem is new. Symptoms have improved. UTI on Admission? No. eb 10:21 09:47 09/22/2017 09:33 Hospitalization Ordered by Arturo Mercer DO for Observation. sv Preliminary diagnosis is Vomiting; Diarrhea, unspecified; Other abdominal pain. Bed requested for Telemetry/MedSurg (observation). Status is Observation. Condition is Stable. Problem is new. Symptoms have improved. UTI on Admission? No. eb
--- NOTE | 2017-09-22 09:34 | ER ---
Nurse's Notes [facility] Name: Kathia Phipps Age: 62 yrs Sex: Female : 1955 Arrival Date: 09/22/2017 Time: 06:10 Bed 7 Private MD: Noa Riley Diagnosis: Vomiting;Diarrhea, unspecified;Other abdominal pain Presentation: 09/22 06:25 Presenting complaint: Patient states: I've had diarrhea since yesterday morning and tl2 vomiting since last night. I feel very weak and tired and feel like I'm going to pass out when I have diarrhea. Transition of care: patient was not received from another setting of care. Onset of symptoms was September 21, 2017 at 09:00. Risk Assessment: Do you want to hurt yourself or someone else? Patient reports no desire to harm self or others. Initial Sepsis Screen: Does the patient meet any 2 criteria? No. Patient's initial sepsis screen is negative. Does the patient have a suspected source of infection? No. Patient's initial sepsis screen is negative. Care prior to arrival: None. 06:25 Method Of Arrival: Wheelchair tl2 06:25 Acuity: ISSAC 3 tl2 Triage Assessment: 06:29 General: Appears in no apparent distress. uncomfortable, Behavior is calm, cooperative, tl2 appropriate for age. Pain: Complains of pain in right upper quadrant and left upper quadrant. Neuro: Level of Consciousness is awake, alert, obeys commands, Oriented to person, place, time, situation. Cardiovascular: Denies chest pain. GI: Reports diarrhea, nausea, vomiting. Historical: - Allergies: 06:29 Morphine; tl2 06:29 PENICILLINS; tl2 - Home Meds: 06:29 acetaminophen-codeine 300-30 mg Oral tab 1 tab every 4-6 hours [Active]; amlodipine 10 tl2 mg tab 1 tab once daily [Active]; doxazosin 1 mg Oral tab 1 tab once daily [Active]; furosemide 80 mg Oral tab 1 tab once daily [Active]; insuline detemir pen [Active]; Januvia 50 mg Oral tab 1 tabs once daily [Active]; Levemir 100 unit/mL subcutaneous soln 55 unit twice a day [Active]; losartan 100 mg Oral tab 1 tab once daily [Active]; Lyrica Oral 1 cap [Active]; Lyrica 150 mg Oral 3 times per day [Active]; metoprolol succinate 50 mg Oral Tb24 1 tab once daily [Active]; pentoxifylline 400 mg Oral TbER 1 tab daily [Active]; pravastatin 20 mg Oral tab 1 tab once daily [Active]; Savella 100 mg Oral tab 1 tab 2 times per day [Active]; Synthroid 200 mcg Oral tab 1 tab once daily [Active]; topiramate 50 mg Oral tab 1 tab 2 times per day [Active]; - PMHx: 06:29 Diabetes - IDDM; Fibromyalgia; Hypertension; Sleep Apnea; tl2 - Immunization history:: Adult Immunizations up to date. - Social history:: Smoking status: Patient/guardian denies using tobacco. - Ebola Screening: : No symptoms or risks identified at this time. Screenin:31 Abuse screen: Denies threats or abuse. Nutritional screening: No deficits noted. tl2 Tuberculosis screening: No symptoms or risk factors identified. Fall Risk IV access (20 points). Ambulatory Aid- Crutches/Cane/Walker (15 pts). Assessment: 06:34 General: Appears in no apparent distress. comfortable, obese, Behavior is cooperative, bp appropriate for age, anxious. Pain: Complains of pain in abdomen. Neuro: Level of Consciousness is awake, alert, obeys commands, Oriented to person, place, time, situation, Appropriate for age. Cardiovascular: No deficits noted. Respiratory: Airway is patent Respiratory effort is even, unlabored, Respiratory pattern is regular, symmetrical. GI: Abdomen is obese, Bowel sounds present X 4 quads. Abd is soft X 4 quads Abdomen is tender to palpation X 4 quads. : No signs and/or symptoms were reported regarding the genitourinary system. EENT: No deficits noted. Derm: No deficits noted. Musculoskeletal: Circulation, motion, and sensation intact. Range of motion: intact in all extremities. 07:26 Reassessment: US at the bedside. sv 08:38 Reassessment: Patient appears in no apparent distress at this time. No changes from sv previously documented assessment. Patient and/or family updated on plan of care and expected duration. Pain level reassessed. Patient is alert, oriented x 3, equal unlabored respirations, skin warm/dry/pink. 09:07 Reassessment: Patient and/or family updated on plan of care and expected duration. Pain sv level reassessed. Patient is alert, oriented x 3, equal unlabored respirations, skin warm/dry/pink. Daughter came out of the room stating pt was nauseated. Informed Houston BARRETT. Medication ordered. 09:23 Reassessment: Dr Mercer at the bedside. sv 09:46 Reassessment: Patient appears in no apparent distress at this time. Patient and/or sv family updated on plan of care and expected duration. Pain level reassessed. Patient is alert, oriented x 3, equal unlabored respirations, skin warm/dry/pink. Vital Signs: 06:29 BP 144 / 74; Pulse 110; Resp 20; Temp 98.8(O); Pulse Ox 98% on R/A; Weight 175.09 kg; tl2 Height 5 ft. 2 in. (157.48 cm); Pain 10/10; 07:06 BP 132 / 75; Pulse 93; Resp 18; Pulse Ox 96% ; sv 08:30 BP 124 / 71; Pulse 93; Resp 18; Pulse Ox 97% ; Pain 10/10; sv 09:48 BP 128 / 73; Pulse 92; Resp 18; Pulse Ox 97% ; sv 06:29 Body Mass Index 70.60 (175.09 kg, 157.48 cm) tl2 ED Course: 06:10 Patient arrived in ED. es 06:13 Noa Riley MD is Private Physician. es 06:17 Anant Blake, RN is Primary Nurse. bp 06:17 Houston Weaver PA is PHCP. [facility] 06:17 Perez Terry MD is Attending Physician. [facility] 06:27 Triage completed. tl2 06:29 Arm band placed on right wrist. tl2 06:31 Patient has correct armband on for positive identification. Placed in gown. Bed in low tl2 position. Call light in reach. Side rails up X2. 06:31 Inserted saline lock: 20 gauge in left antecubital area, using aseptic technique. Blood tl2 collected. 07:06 Primary Nurse role handed off by Anant Blake, RN sv 07:06 Katlin Martínez, RN is Primary Nurse. sv 07:36 Ultrasound completed. Patient tolerated poorly. sg3 07:38 US Abdomen Limited In Process Unspecified. EDMS 07:40 Radiology exam delayed due to lab results not completed at this time. kw1 08:12 CT Abd/Pelvis - W/Contrast In Process Unspecified. EDMS 08:12 CT completed. Patient tolerated procedure well. Patient moved back from CT. kw1 08:23 Awaiting radiology results. Awaiting re-evaluation by ER provider. sv 09:33 Arturo Mercer DO is Hospitalizing Provider. jmm 09:46 Awaiting bed assignment. sv 10:21 No provider procedures requiring assistance completed. Patient admitted, IV remains in sv place. intact. Administered Medications: 06:44 Drug: NS 0.9% 1000 ml Route: IV; Rate: 1 bolus; Site: left antecubital; bp 07:45 Follow up: Response: No adverse reaction; IV Status: Completed infusion; IV Intake: sv 1000ml 06:44 Drug: Zofran 4 mg Route: IVP; Site: left antecubital; bp 07:26 Follow up: Response: No adverse reaction sv 06:44 Drug: Bentyl 20 mg Route: PO; bp 07:26 Follow up: Response: No adverse reaction sv 08:37 Drug: fentaNYL (PF) 50 mcg Route: IVP; Site: left antecubital; sv 09:10 Follow up: Response: No adverse reaction sv 09:10 Drug: Reglan 10 mg Route: IVP; Site: left antecubital; sv 09:25 Follow up: Response: No adverse reaction sv 09:10 Drug: NS 0.9% 250 ml Route: IV; Rate: bolus; Site: left antecubital; sv 09:25 Follow up: Response: No adverse reaction; IV Status: Completed infusion; IV Intake: sv 250ml Intake: 07:45 IV: 1000ml; Total: 1000ml. sv 09:25 IV: 250ml; Total: 1250ml. sv Outcome: 09:33 Decision to Hospitalize by Provider. [facility] 10:05 Admitted to Med/surg accompanied by tech, family with patient, via wheelchair, room sv 409, with chart, Report called to Dipti RIVERA 10:05 Condition: stable 10:05 Instructed on the need for admit. 10:21 Patient left the ED. sv Signatures: Dispatcher [employer] Katlin Shelton RN RN Houston Weaver PA PA jmm Salyer, Edna es Knox, Taylor, RN RN tl2 Anant Blake, RN RN bp Glenis Sandy kw1 Ellie Mott 3
--- NOTE | 2017-09-22 09:43 | P.HP ---
Certification for Inpatient Patient admitted to: Observation With expected LOS: <2 Midnights Patient will require the following post-hospital care: None Practitioner: I am a practitioner with admitting privileges, knowledge of patient current condition, hospital course, and medical plan of care. Services: Services provided to patient in accordance with Admission requirements found in Title 42 Section 412.3 of the Code of Federal Regulations Patient History Date of Service: 09/22/17 Primary Care Provider: Dr. Riley; Endocrinology-Dr. Oscar Reason for admission: Abdominal pain, nausea, vomiting History of Present Illness: 62 yo HF presented to the ER with abdominal pain, nausea, and diarrhea. She has DM, HTN and morbid obesity. She reports pain to the epigastric and RUQ region of the abdomen since yesterday. Pain is about 7/10. It is associated with nausea and diarrhea. She did not eat anything unusual yesterday. A grandson has diarrhea but she says he has IBS. No fever or chills noted. No chest pain, SOB, or dizziness noted. In the ER she was evaluated. WBC-10.4, NA-141, K-3.7, Creatinine-0.9, GFR-64. CTAB compared to 06/2017 shows no significant changes. No obstruction. Gallstones noted. ABUS showed cholelithiasis but no cholecystitis. No CBD dilation noted. Patient treated in the ER but still reports some nausea. She will be admitted for observation. When I saw the patient in the ER, she appeared stable. So pain to the Epigastric and RUQ noted. She is obese. She does not smoke or drink alcohol. Family at bedside. Allergies latex Allergy (Verified 10/25/11 23:04) Hives/Rash morphine Allergy (Verified 03/17/17 06:49) Hallucination Penicillins Allergy (Verified 03/17/17 06:49) palpatations Home medications list reviewed: Yes Home Medications: Amlodipine Besylate [Norvasc] 10 mg PO DAILY 10/25/11 Acetaminophen with Codeine [Acetaminophen-Cod #3 Tablet] 1 each PO Q3HR PRN 04/29 Doxazosin [Cardura*] 1 mg PO BEDTIME 03/17/17 Furosemide 80 mg PO DAILY PRN 03/17/17 Insulin Detemir [Levemir Flextouch] 55 units SQ BID 03/17/17 Levothyroxine Sodium [Synthroid] 200 mcg PO DAILY 03/17/17 Losartan Potassium 100 mg PO DAILY 03/17/17 Metoprolol Succinate 50 mg PO BEDTIME 03/17/17 Milnacipran HCl [Savella] 100 mg PO BID 03/17/17 Pentoxifylline 400 mg PO BEDTIME 03/17/17 Pravastatin Sodium 20 mg PO BEDTIME 03/17/17 Pregabalin [Lyrica] 100 mg PO BID 03/17/17 Sitagliptin Phosphate [Januvia] 50 mg PO DAILY 03/17/17 Acetam/Caff/Butal [Fioricet*] 1 tab PO Q4H PRN #20 tab 03/19/17 Topiramate [Topamax*] 50 mg PO BID #20 tab 03/19/17 Ciprofloxacin HCl [Cipro 500 MG Tablet] 500 mg PO BID #20 tab 07/07/17 Loperamide [Imodium*] 2 mg PO TID PRN #20 cap 07/07/17 Ondansetron HCl [Zofran] 4 mg PO TID PRN #20 tablet 07/07/17 Pantoprazole [Protonix Tab] 40 mg PO DAILY #30 tab 07/07/17 Simethicone 125 mg PO TID PRN #30 capsule 07/07/17 metroNIDAZOLE [Flagyl] 500 mg PO Q8H #30 tablet 07/07/17 - Past Medical/Surgical History Diabetic: Yes -: DM Type 2 -: Vitiligo -: Fibromyalgia -: Hypothyroidism -: HTN -: Vit D deficient -: Morbid obesity -: GERD -: Heel spur repair -: Tubal ligation Psychosocial/ Personal History: She is and lives at home. She has 3 children - Family History Father -: Heart disease, Hypertension, Diabetes, Stroke Mother Notes: STELLA'S DISEASE, MYASTENIA GRAVIS - Social History Smoking Status: Never smoker Alcohol use: No CD- Drugs: No Caffeine use: No Place of Residence: Home Review of Systems General: Weakness, As per HPI Eyes: Unremarkable ENT: Unremarkable Respiratory: Unremarkable Cardiovascular: Unremarkable Gastrointestinal: Nausea, Vomiting, Abdominal Pain, Diarrhea, As per HPI Genitourinary: Unremarkable Musculoskeletal: Unremarkable Integumentary: Unremarkable Neurological: Unremarkable Lymphatics: Unremarkable Physical Examination - Physical Exam General: Alert, In no apparent distress, Oriented x3, Cooperative HEENT: Atraumatic, Normocephalic, Other (dry mucous membranes) Neck: Supple, No Thyromegaly Respiratory: Clear to auscultation bilaterally, Normal air movement Cardiovascular: Normal pulses, Regular rate/rhythm Gastrointestinal: Normal bowel sounds, Soft and benign, Non-distended, No masses , No rebound, No guarding, Other (patient is morbidly obese), Tenderness ( slight pain to the epigastric and RUQ region) Musculoskeletal: No erythema, No tenderness, No warmth Integumentary: No tenderness/swelling, No erythema, No warmth, No cyanosis Neurological: Normal speech, Normal strength at 5/5 x4 extr, Normal tone, Normal affect - Studies Laboratory Data (last 24 hrs) 09/22/17 06:30: Creatinine 0.90 09/22/17 06:30: WBC 10.4, Hgb 13.6, Hct 40.9, Plt Count 189 09/22/17 06:30: Sodium 141, Potassium 3.7, BUN 15, Creatinine 0.90, Glucose 201 H, Total Bilirubin 0.4, AST 12 L, ALT 26, Alkaline Phosphatase 109, Amylase 55, Lipase 125 Assessment and Plan - Problems (Diagnosis) (1) Nausea & vomiting Current Visit: Yes Status: Acute Plan: Likely gastroenteritis. Will continue with IV fluids. Start Cipro and Flagyl. Advance diet as tolerated. Will check diarrhea for c. diff. colitis. ABUS and CTAB shows gallstones but no cholecystitis and unchanged since 06/2017. I will get Surgery to assess. Anticipate discharge within 24 hours. Qualifiers: Vomiting type: unspecified Vomiting Intractability: unspecified Qualified Code(s): R11.2 - Nausea with vomiting, unspecified (2) Diabetes mellitus Current Visit: Yes Status: Chronic Plan: Continue with sliding scale. Monitor accuchecks. Patient is seen by Endocrine as outpatient. Qualifiers: Diabetes mellitus type: type 2 Diabetes mellitus prison insulin use: with prison use Diabetes mellitus complication status: with other specified complication Qualified Code(s): E11.69 - Type 2 diabetes mellitus with other specified complication; Z79.4 - exterminator (current) use of insulin (3) Abdominal pain Current Visit: No Status: Acute Plan: Likely gastroenteritis. Continue as above. Surgery consulted Qualifiers: Abdominal location: generalized Qualified Code(s): R10.84 - Generalized abdominal pain (4) Diarrhea Current Visit: No Status: Acute Plan: Continue as above. Will check stool for c. diff. colitis Qualifiers: Diarrhea type: infectious Qualified Code(s): A09 - Infectious gastroenteritis and colitis, unspecified (5) Gastroenteritis Current Visit: No Status: Suspected Plan: Continue as above. Will also start PPI. (6) Fibromyalgia Current Visit: No Status: Chronic Plan: Will need to obtain and verify home meds. (7) Hypertension Onset Date: 03/19/17 Current Visit: No Status: Chronic Plan: Will need to verify and obtain home meds. IV medication for elevated BP Qualifiers: Hypertension type: essential hypertension Qualified Code(s): I10 - Essential (primary) hypertension (8) Hypothyroidism Current Visit: No Status: Chronic Plan: Will need to continue with home med Qualifiers: Hypothyroidism type: unspecified Qualified Code(s): E03.9 - Hypothyroidism , unspecified (9) Obesity Current Visit: No Status: Chronic Plan: Will address BMI and lifestyle modifications. Qualifiers: Obesity type: due to excess calories Obesity classification: adult class 3 (BMI >= 40) Serious obesity comorbidity presence: with serious comorbidity Body mass index: BMI 70 or greater Qualified Code(s): E66.01 - Morbid (severe ) obesity due to excess calories; Z68.45 - Body mass index (BMI) 70 or greater, adult (10) GERD (gastroesophageal reflux disease) Current Visit: No Status: Suspected Plan: Will start PPI. Continue as above. May need to see GI as outpatient to further address. Qualifiers: Esophagitis presence: esophagitis presence not specified Qualified Code(s) : K21.9 - Gastro-esophageal reflux disease without esophagitis (11) Cholelithiasis Current Visit: Yes Status: Chronic Plan: CTAB and ABUS shows cholelithiasis but no cholecystitis. No changes since 2017. Surgery consulted. Suspect this can be addressed as outpatient. Continue as above. Qualifiers: Cholelithiasis location: gallbladder Cholecystitis presence: without cholecystitis Biliary obstruction: without biliary obstruction Qualified Code(s): K80.20 - Calculus of gallbladder without cholecystitis without obstruction Discharge Plan: Home Plan to discharge in: 24 Hours - Advance Directives Does patient have a Living Will: No Does patient have a Durable POA for Healthcare: No - Code Status/Comfort Care Code Status Assessed: Yes Time Spent Managing Pts Care (In Minutes): 55
[2017-09-22 09:50] LABS: Urine Blood NEGATIVE (NEG); Urine Glucose NEGATIVE (NEG); Urine Protein NEGATIVE (NEG); Urine Specific Gravity 1.015 (1.005-1.030)
[2017-09-22 10:02] LABS: Urine Bacteria NONE SEEN /HPF (<20); Urine RBC NONE SEEN /HPF (NONE SEEN)
[2017-09-22 10:03] LABS: Urine Culture Reflex Order NOT NEEDED
[2017-09-22 11:28] VITALS: BMI 70.4
[2017-09-22] MEDS: INSULIN -REGULAR HUMAN 50 UNIT/0.5 ML ML SQ SCH ×3 (11:30→21:00)
[2017-09-22] MEDS: NA CHLORIDE 0.9% 1,000 ML IV SCH ×3 (12:13→21:50)
[2017-09-22] MEDS: METRONIDAZOLE 500mg IVPB 500 MG/100 ML BAG IV SCH ×2 (12:14→17:35)
[2017-09-22] MEDS: CIPROFLOXACIN 400mg IV 400 MG/200 ML BAG IV SCH ×2 (12:14→21:39)
[2017-09-22] MEDS: ENOXAPARIN 40 MG/0.4 ML SQ SCH (12:15)
--- NOTE | 2017-09-22 14:31 | CON ---
Date of Consultation: 09/22/2017 Reason: Cholelithiasis. History Of Present Illness: The patient is a 62-year-old female presented with diarrhea followed by crampy abdominal pain, nausea and vomiting. She has had more than 10 episodes of diarrhea since yest erday morning. She was worked up in the ER, was admitted with gastroenteritis and incidentally galls tones were found on the gallbladder but no evidence of any acute inflammation. She occasionally has biliary colic in the past but this is different episode. No blood in her stool. No dysuria or hemat uria. No sore throat, runny nose, cough, headaches, or dizziness. No chest pain. No fever or chill s. Review of Systems: Otherwise unremarkable. Past Medical History: Significant for morbid obesity, type 2 diabetes, fibromyalgia, hypothyroidism, hypertension, GERD. Past Surgical History: Heel spur surgery, bilateral tubal ligation. Allergies: INCLUDE MORPHINE AND PENICILLIN. Social History: She denies smoking or drinking. Family History: Significant for heart disease, diabetes, hypertension, stroke, myasthenia gravis, Ad dison's disease. Physical Examination: Vital signs: Stable. She is afebrile. She is awake, alert, and oriented x3. Head and neck: No evidence of icterus. Cranial nerves 2 through 12 are grossly within normal limits . No neck masses. No JVD. Throat clear. Neck is supple. Chest: Clear. Heart: S1, S2. Abdomen: Soft, nondistended. Very minimal epigastric tenderness. No rebound, rigidity, or guarding . Extremities: Adequately perfused. Nontender. Neuro: Nonfocal. Laboratory Data: White count is 10.4, with slight left shift. Chemistry reviewed and glucose is 201 . LFTs are within normal limits. Amylase and lipase are within normal limits. CT of the abdomen an d pelvis and ultrasound reviewed. She does have cholelithiasis but there are no other acute findings . There is no evidence of any acute inflammation or infection. Assessment: Gastroenteritis and cholelithiasis. Recommendations: At this time I would recommend that the patient be treated for her gastroenteritis and check the stool for C diff, hydrate, empiric antibiotics. I advised the family and the patient t hat the gallbladder could be addressed as an outpatient. No need for any acute surgical intervention at this time. LATHA/CAMILO Voice ID: [id number] Report ID: [id number]
[2017-09-22] MEDS: ACETAMINOPHEN 500 MG TAB PO PRN ×2 (15:06→21:50)
[2017-09-22] MEDS ORDERED: POTASSIUM 25 MEQ EFFERV TAB PO ONE (21:00)
[2017-09-23] MEDS: METRONIDAZOLE 500mg IVPB 500 MG/100 ML BAG IV SCH ×2 (00:31→08:42)
[2017-09-23 04:45] LABS: Absolute Monocytes 0.8 K/uL (0.1-1.3); Absolute Neutrophil 6.1 K/uL (1.8-8.0); Basophils % 0.2 % (0-1.3); Eosinophils % 6.1 % (0-4.4); Lymphocytes % 12.1 % (15.3-44.8); MCH 30.4 pg (27.0-35.0); MCV 92.1 fL (80-100); MPV 8.8 fL (7.6-11.3); Monocytes % 9.2 % (3.3-12.3); RBC Red Blood Cell Count 3.69 M/uL (3.86-4.86)
[2017-09-23 05:17] LABS: Magnesium 1.6 mg/dL (1.8-2.4); Potassium 3.6 mmol/L (3.5-5.1)
[2017-09-23] MEDS: NA CHLORIDE 0.9% 1,000 ML IV SCH (06:00)
[2017-09-23] MEDS ORDERED: POTASSIUM 25 MEQ EFFERV TAB PO ONE (06:30)
[2017-09-23] MEDS ORDERED: MAGNESIUM SULFATE 1 gm IVPB 1 GM/100 ML BAG IV ONE (06:30)
--- NOTE | 2017-09-23 07:29 | P.DS ---
Admission Date: 09/22/17 Discharge Date: 09/23/17 Primary Care Provider: Dr. Riley; Endocrinology-Dr. Oscar Disposition: ROUTINE DISCHARGE Discharge Condition: GOOD Reason for Admission: Abdominal pain, nausea, vomiting Consultations: Surgery-Dr. Polanco Procedures: Abdominal ultrasound: COMPARISON: RP EXAM COMPLETE dated 10/29/2011 FINDINGS: The gallbladder demonstrates extensive shadowing gallstones. No pericholecystic fluid or gallbladder wall thickening. The common bile duct is normal measuring 6 mm. The liver demonstrates no findings of intrahepatic biliary dilatation. IMPRESSION: Cholelithiasis. CT scan: COMPARISON: Abdomen Pelvis W Contrast dated 07/06/2017 TECHNIQUE: Biphasic CT imaging of the abdomen and pelvis was performed with 100 ml non-ionic IV contrast. All CT scans are performed using dose optimization technique as appropriate and may include automated exposure control or mA/KV adjustment according to patient size. FINDINGS: The lung bases are clear.Cholelithiasis. The liver, spleen, pancreas, adrenal glands and kidneys are within normal limits. No bowel obstruction, free air, free fluid or abscess. Small fat containing umbilical hernia. The appendix is normal. No evidence of significant lymphadenopathy. Moderate lumbosacral degenerative changes. IMPRESSION: Cholelithiasis. No significant change since 07/06/2017. - Problems (1) Nausea & vomiting Current Visit: Yes Status: Acute Qualifiers: Vomiting type: unspecified Vomiting Intractability: unspecified Qualified Code(s): R11.2 - Nausea with vomiting, unspecified (2) Diabetes mellitus Current Visit: Yes Status: Chronic Qualifiers: Diabetes mellitus type: type 2 Diabetes mellitus ad terminal makeup operator insulin use: with senior living use Diabetes mellitus complication status: with other specified complication Qualified Code(s): E11.69 - Type 2 diabetes mellitus with other specified complication; Z79.4 - skilled nursing (current) use of insulin (3) Abdominal pain Current Visit: No Status: Acute Qualifiers: Abdominal location: generalized Qualified Code(s): R10.84 - Generalized abdominal pain (4) Diarrhea Current Visit: No Status: Acute Qualifiers: Diarrhea type: infectious Qualified Code(s): A09 - Infectious gastroenteritis and colitis, unspecified (5) Gastroenteritis Current Visit: No Status: Suspected (6) Fibromyalgia Current Visit: No Status: Chronic (7) Hypertension Onset Date: 03/19/17 Current Visit: No Status: Chronic Qualifiers: Hypertension type: essential hypertension Qualified Code(s): I10 - Essential (primary) hypertension (8) Hypothyroidism Current Visit: No Status: Chronic Qualifiers: Hypothyroidism type: unspecified Qualified Code(s): E03.9 - Hypothyroidism , unspecified (9) Obesity Current Visit: No Status: Chronic Qualifiers: Obesity type: due to excess calories Obesity classification: adult class 3 (BMI >= 40) Serious obesity comorbidity presence: with serious comorbidity Body mass index: BMI 70 or greater Qualified Code(s): E66.01 - Morbid (severe ) obesity due to excess calories; Z68.45 - Body mass index (BMI) 70 or greater, adult (10) GERD (gastroesophageal reflux disease) Current Visit: No Status: Suspected Qualifiers: Esophagitis presence: esophagitis presence not specified Qualified Code(s) : K21.9 - Gastro-esophageal reflux disease without esophagitis (11) Cholelithiasis Current Visit: Yes Status: Chronic Qualifiers: Cholelithiasis location: gallbladder Cholecystitis presence: without cholecystitis Biliary obstruction: without biliary obstruction Qualified Code(s): K80.20 - Calculus of gallbladder without cholecystitis without obstruction (12) PVD (peripheral vascular disease) Current Visit: Yes Status: Chronic (13) Hyperlipidemia Current Visit: No Status: Chronic Qualifiers: Hyperlipidemia type: unspecified Qualified Code(s): E78.5 - Hyperlipidemia , unspecified Brief History of Present Illness: 62 yo HF presented to the ER with abdominal pain, nausea, and diarrhea. She has DM, HTN and morbid obesity. She reports pain to the epigastric and RUQ region of the abdomen since yesterday. Pain is about 7/10. It is associated with nausea and diarrhea. She did not eat anything unusual yesterday. A grandson has diarrhea but she says he has IBS. No fever or chills noted. No chest pain, SOB, or dizziness noted. In the ER she was evaluated. WBC-10.4, NA-141, K-3.7, Creatinine-0.9, GFR-64. CTAB compared to 06/2017 shows no significant changes. No obstruction. Gallstones noted. ABUS showed cholelithiasis but no cholecystitis. No CBD dilation noted. Patient treated in the ER but still reports some nausea. She will be admitted for observation. When I saw the patient in the ER, she appeared stable. So pain to the Epigastric and RUQ noted. She is obese. She does not smoke or drink alcohol. Family at bedside. Hospital Course: The patient did well in the course of her stay. Her abdominal pain, nausea, vomiting and diarrhea has resolved. CT scan and abdominal ultrasound showed no acute findings. Patient has cholelithiasis without cholecystitis. Patient likely had gastroenteritis and GERD. Diarrhea has resolved. C diff culture negative. Patient was evaluated by surgery. No surgical intervention was required. At discharge she was able tolerate her diet. She was without any significant nausea, vomiting and abdominal pain. At discharge patient will continue with Cipro 500 mg twice daily and Flagyl 500 mg 1 pill 3 times a day for 7 days. Patient will also continue with Protonix 40 mg 1 pill once daily. Patient may follow up with GI as an outpatient to further assess. Patient may require GI evaluation as an outpatient to further assess her GERD. Patient may follow up with surgery as an outpatient to monitor her cholelithiasis as she may require surgery in the future. Patient may continue with her anti nausea medication as needed. Patient has diabetes. She will continue with her medications-Levemir 55 units subcu twice daily and Januvia 100 mg daily. Recommendation is to maintain blood sugars less 140 fasting and less than 200 after meals. Further adjustment can be done by her PCP. Patient has hypertension. She will continue with her medications-Norvasc 10 mg 1 pill daily, Cardura 1 mg 1 pill at bedtime, losartan 100 mg 1 pill daily, and metoprolol 50 mg 1 pill at bedtime. Recommendation is to monitor blood pressure daily. Recommendation is to maintain blood pressures less 150/80. Further adjustment can be done by her PCP. She may have to hold her blood pressure medication in the future if systolic less than 120. Patient has hypothyroidism. She will continue with her medication-Synthroid 200 mcg daily. Patient has fibromyalgia. Patient will continue with Savella 100 mg 1 pill twice daily, Lyrica 150 mg 1 pill 3 times a day, and Topamax 50 mg 1 pill twice daily. Patient also takes Tylenol #3 as needed for pain. Recommendations for the patient follow up with chronic pain management to further monitor and address. Patient has hyperlipidemia. Patient continue with pravastatin 20 mg 1 pill daily. Patient has peripheral vascular disease. She may continue with Pentoxifylline 400 mg daily. Vital Signs/Physical Exam: Temp Pulse Resp BP Pulse Ox 97.9 F 83 20 93/52 L 97 09/23/17 04:00 09/23/17 04:00 09/23/17 04:00 09/23/17 04:00 09/23/17 04:00 General: Alert, In no apparent distress, Oriented x3, Cooperative HEENT: Atraumatic Neck: Supple Respiratory: Clear to auscultation bilaterally, Normal air movement Cardiovascular: Normal pulses, Regular rate/rhythm Gastrointestinal: Normal bowel sounds, Soft and benign, Non-distended, No tenderness, No masses, No rebound, No guarding Musculoskeletal: No erythema, No tenderness, No warmth Integumentary: No tenderness/swelling, No erythema, No warmth, No cyanosis Neurological: Normal speech, Normal strength at 5/5 x4 extr, Normal tone, Normal affect Laboratory Data at Discharge: WBC 8.4 K/uL (4.3-10.9) D 09/23/17 04:26 Hgb 11.2 g/dL (12.0-15.0) L 09/23/17 04:26 Hct 34.0 % (36.0-45.0) L D 09/23/17 04:26 Plt Count 138 K/uL (152-406) L D 09/23/17 04:26 Sodium 145 mmol/L (136-145) 09/23/17 04:26 Potassium 3.6 mmol/L (3.5-5.1) 09/23/17 04:26 BUN 8 mg/dL (7-18) 09/23/17 04:26 Creatinine 0.80 mg/dL (0.55-1.3) 09/23/17 04:26 Glucose 126 mg/dL (74-106) H 09/23/17 04:26 Magnesium 1.6 mg/dL (1.8-2.4) L 09/23/17 04:26 Total Bilirubin 0.4 mg/dL (0.2-1.0) 09/22/17 06:30 AST 12 U/L (15-37) L 09/22/17 06:30 ALT 26 U/L (12-78) 09/22/17 06:30 Alkaline Phosphatase 109 U/L (45-117) 09/22/17 06:30 Amylase 55 U/L (25-115) 09/22/17 06:30 Lipase 125 U/L (73-393) 09/22/17 06:30 Home Medications: Amlodipine Besylate [Norvasc] 10 mg PO DAILY 10/25/11 Acetaminophen with Codeine [Acetaminophen-Cod #3 Tablet] 1 each PO Q3HR PRN 04/29 Doxazosin [Cardura*] 1 mg PO BEDTIME 03/17/17 Insulin Detemir [Levemir Flextouch] 55 units SQ BID 03/17/17 Levothyroxine Sodium [Synthroid] 200 mcg PO DAILY 03/17/17 Losartan Potassium 100 mg PO DAILY 03/17/17 Metoprolol Succinate 50 mg PO BEDTIME 03/17/17 Milnacipran HCl [Savella] 100 mg PO BID 03/17/17 Pentoxifylline 400 mg PO DAILY 03/17/17 Pravastatin Sodium 20 mg PO BEDTIME 03/17/17 Pregabalin [Lyrica] 150 mg PO TID 03/17/17 Sitagliptin Phosphate [Januvia] 100 mg PO DAILY 03/17/17 Topiramate [Topamax*] 50 mg PO BID #20 tab 03/19/17 Loperamide [Imodium*] 2 mg PO TID PRN #20 cap 07/07/17 Ondansetron HCl [Zofran] 4 mg PO TID PRN #20 tablet 07/07/17 Simethicone 125 mg PO TID PRN #30 capsule 07/07/17 Cholecalciferol (Vitamin D3) [Vitamin D3] 1,000 unit PO DAILY 09/22/17 Ciprofloxacin HCl [Cipro 500 MG Tablet] 500 mg PO BID #14 tab 09/23/17 Pantoprazole [Protonix Tab] 40 mg PO DAILY #30 tab 09/23/17 metroNIDAZOLE [Flagyl] 500 mg PO Q8H #21 tablet 09/23/17 New Medications: Ciprofloxacin HCl [Cipro 500 MG Tablet] 500 mg PO BID #14 tab metroNIDAZOLE [Flagyl] 500 mg PO Q8H #21 tablet Pantoprazole [Protonix Tab] 40 mg PO DAILY #30 tab Patient Discharge Instructions: 1. Patient will need to follow up with a PCP in 1 week to follow up this hospitalization. 2. Patient presented with abdominal pain, nausea, vomiting and diarrhea has resolved. CT scan and abdominal ultrasound showed no acute findings. Patient has cholelithiasis without cholecystitis. Both CT and abdominal ultrasound unchanged from prior exams. Patient likely had gastroenteritis with GERD. Diarrhea has resolved. C diff culture negative. Patient was evaluated by surgery. No surgical intervention was required. At discharge patient may continue with a soft diet and advance to [employer] diet. Patient is to limit fatty fried foods. At discharge patient will continue with Cipro 500 mg twice daily and Flagyl 500 mg 1 pill 3 times a day for 7 days. Patient will also continue with Protonix 40 mg 1 pill once daily. Patient may follow up with GI as an outpatient to further assess. Patient may require GI evaluation as an outpatient to further assess GERD. Patient may follow up with surgery as an outpatient to monitor her cholelithiasis as she may require surgery in the future. 3. Patient has diabetes. She will continue with her medications- Levemir 55 units subcu twice daily and Januvia 100 mg daily. Recommendation is to maintain blood sugars less 140 fasting and less than 200 after meals. Further adjustment can be done by her PCP. 4. Patient has hypertension. She will continue with her medications-Norvasc 10 mg 1 pill daily, Cardura 1 mg 1 pill at bedtime, losartan 100 mg 1 pill daily, and metoprolol 50 mg 1 pill at bedtime. Recommendation is to monitor blood pressure daily. Recommendation is to maintain blood pressures less 150/80. Further adjustment can be done by her PCP. She may have to hold her blood pressure medication in the future if systolic less than 120. 5. Patient has hypothyroidism. She will continue with her medication-Synthroid 200 mcg daily. 6. Patient has fibromyalgia. Patient will continue with Savella 100 mg 1 pill twice daily, Lyrica 150 mg 1 pill 3 times a day, and Topamax 50 mg 1 pill twice daily. Patient also takes Tylenol #3 as needed for pain. Recommendations for the patient follow up with chronic pain management to further monitor and address. 7. Patient has hyperlipidemia. Patient continue with pravastatin 20 mg 1 pill daily. 8. Patient has peripheral vascular disease. She may continue with Pentoxifylline 400 mg daily. Diet: Soft GI then advance to [employer] diet Activity: Ad ashley Time spent managing pt's care (in minutes): 55
[2017-09-23] MEDS: INSULIN -REGULAR HUMAN 50 UNIT/0.5 ML ML SQ SCH (07:30)
[2017-09-23 08:22] VITALS: O2SAT 98
[2017-09-23] MEDS: ENOXAPARIN 40 MG/0.4 ML SQ SCH (08:41)
[2017-09-23] MEDS: CIPROFLOXACIN 400mg IV 400 MG/200 ML BAG IV SCH (08:41)
[2017-09-23] MEDS ORDERED: PANTOPRAZOLE 40 MG INJ IVP SCH (09:00)
[2017-09-23 09:12] VITALS: BP 117/58; TEMP 97.2
[2017-09-24] MEDS ORDERED: LEVOTHYROXINE SOD 0.1 MG TAB PO SCH (06:00)
== END 2017-09-23 11:21 | disposition home or self-care (01) ==
LOC: ER 06:08 → ERHOLD 09:28 → 4TH 10:10
PROVIDERS: ADMIT Family Medicine; ATTEND Family Medicine
DX: K80.20 Calculus of gallbladder without cholecystitis without obstruction (principal); R11.10 Vomiting, unspecified; R19.7 Diarrhea, unspecified; E11.9 Type 2 diabetes mellitus without complications; M79.7 Fibromyalgia; I10 Essential (primary) hypertension; E66.01 Morbid (severe) obesity due to excess calories; Z68.45 Body mass index [BMI] 70 or greater, adult; I73.9 Peripheral vascular disease, unspecified; E78.5 Hyperlipidemia, unspecified; E03.9 Hypothyroidism, unspecified; Z88.0 Allergy status to penicillin; Z91.040 Latex allergy status
CPT/HCPCS: 36415; 74177; 76705; 80048; 80076; 81003; 81015; 82150; 82962; 83690; 83735; 84443; 85025; 87045; 87046; 87177; 87209; 87493; 96361; 96374; 96375; 99285; C9113; G0378; J0744; J1650; J2405; J2765; J3010; J3475; J7030; Q9967

== ENCOUNTER 2019-12-23 17:17 | Observation (INO) | payer OTHER, SELFPAY ==
--- OUTSIDE RECORDS SUMMARY | 2019-12-23 17:19 | XMS REPORT | Summary of Care ---
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 (Primary Dx); Endocrinology- [facility] Primary hypothyroidism; [facility] Essential hypertension; [address] [place], [place] [address]; [address], [address] [address] Weight gain [place], [place] [phone] [address] [phone] Allergies Active Allergy Reactions Severity Noted Date Comments Clarithromycin Other - See comments 04/10/2017 Chest pain Morphine Hallucinations 04/10/2017 Penicillins Rash, Shortness of Breath 04/10/2017 documented as of this encounter (statuses as of 10/09/2019) Medications Medication Sig Dispensed Refills Start Date End Date Status KCL 20 mEq tablet Take 20 mEq 0 Active by mouth daily. pravastatin 20 mg Take 20 mg by 0 Active tablet mouth at bedtime. amLODIPine 10 mg Take 10 mg by 0 Active tablet mouth daily. pregabalin (LYRICA) Take 150 mg 0 Active 150 mg capsule by mouth 3 (three) times daily. doxazosin 1 mg Take 1 mg by 0 Ac tive tablet mouth at bedtime. metoprolol Take 50 mg by 0 Activ e succinate XL 50 mg mouth daily. 24 hr tablet Milnacipran Take by 0 Active (SAVELLA) 100 mg mouth 2 (two) Tab times daily. Acetaminophen-Butal Take by 0 Active bital 50-325 mg Tab mouth as needed. pentoxifylline 400 Take 400 mg 0 Active mg SR tablet by mouth daily. furosemide (LASIX) Take 40 mg by 0 Active 40 mg tablet mouth as needed. ondansetron 4 mg Take 4 mg by 0 Active tablet mouth every 8 (eight) hours as needed for Nausea and Vomiting (N/V). Blood-Glucose Meter Use as 1 Kit 0 08/22/2017 Active (BLOOD GLUCOSE directed, MONITORING) Kit DX:E11.9, TID blood sugar Use as 300 Strip 1 08/22/2017 Active diagnostic (BLOOD directed, GLUCOSE TEST) strip TID, DX:E11.9 lancets 33 gauge Use as 300 Each 1 08/22/2017 Ac tive Misc directed, TID, DX:E11.9 losartan 100 mg Take 1 tablet 90 tablet 3 10/24/2017 Active tabletIndications: by mouth Essential daily. hypertension pantoprazole Take 40 mg by 0 Act gemma (PROTONIX) 40 mg EC mouth daily. tablet Lactobacillus Take by 0 Active acidophilus mouth. (ACIDOPHILUS ORAL) lancets (BD Use as 100 Each 3 01/23/2018 Active MICROTAINER LANCET) directed once 30 gauge Misc daily DX E11.21 insulin aspart inject 10 15 mL 4 03/26/2019 Acti ve U-100 (NOVOLOG Units under FLEXPEN U-100 the skin 3 INSULIN) 100 (three) times unit/mL (3 mL) daily before injectionIndication meals. 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 topiramate Take 1 tablet 60 tablet 4 09/17/2019 Acti ve (TOPAMAX) 50 mg by mouth 2 tabletIndications: (two) times Weight gain daily. levothyroxine TAKE 1 TABLET 90 tablet 1 03/26/2019 D iscontinued (SYNTHROID) 200 mcg BY MOUTH 0 (Reorder) tabletIndications: INTHE Primary MORNINGS ON hypothyroidism EMPTY STOMACH phentermine 37.5 mg Take 1 tablet 90 tablet 1 03/26/201909/16 Discontinued tabletIndications: by mouth 0 ( Reorder) Weight gain daily with breakfast. SITagliptin Take 1 tablet 90 tablet 3 03/26/2019 Dis continued (JANUVIA) 100 mg by mouth 0 tabletIndications: daily. 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 documented as of this encounter (statuses as of 10/09/2019) Active Problems Problem Noted Date Primary hypothyroidism 01/23/2018 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 10/24/2017 Essential hypertension 10/24/2017 Vitamin D deficiency 10/24/2017 Dyslipidemia 10/24/2017 Chronic fatigue 10/24/2017 Vitiligo 10/24/2017 documented as of this encounter (statuses as of 10/09/2019) Social History Tobacco Use Types Packs/Day Years Used Date Never Smoker Smokeless Tobacco: Never Used Alcohol Use Drinks/Week oz/Week Comments No Sex Assigned at Date Recorded Not on file COVID-19 Exposure Response Date Recorded In the last month, have you been in contact with No / Unsure 09/17/2019 9:31 AM CDT someone who was confirmed or suspected to have Coronavirus / COVID-19? documented as of this encounter Last Filed Vital Signs Vital Sign Reading Time Taken Comments Blood Pressure 143/84 09/17/2019 9:56 AM CDT Pulse 88 09/17/2019 9:56 AM CDT Temperature - - Respiratory Rate 18 09/17/2019 9:56 AM CDT Oxygen Saturation - - Inhaled Oxygen Concentration - - Weight 182.3 kg (402 lb) 09/17/2019 9:56 AM CDT Height 157.5 cm (5' 2") 09/17/2019 9:56 AM CDT Body Mass Index 73.53 09/17/2019 9:56 AM CDT documented in this encounter Patient Instructions Patient InstructionsGregoria Gillis MD - 09/17/2019 9:30 AM CDTContinue current Tresiba , Novolog and Farxiga documented in this encounter Progress Notes Gregoria Gillis MD - 09/17/2019 9:30 AM CDT CC follow up for type 2 DM and morbid obesity HPI Patient is a 63 year old /White female who is here today for Diabetes Mellitus Type 2. Patient's diabetes is complicated by atherogenic diet, depression, hyperlipidemia, hypertension , hypothyroidism, obesity and sedentary lifestyle. Patient has no acute problems today. Type 2 diabetes mellitus: Diagnosed in 2009. A1C fluctuating at 6.5 to 10 range PHYLICIA was in 03/2019 with A1C at 7.0. Patient was advised to continue Tresiba, Januvia and Novolog 10u TIDAC. Reports PCP changed januvia to farxiga in 08/2019 She reports glucose control is improving. Patient usually checks blood glucoses 2-3 times a week. Patient has brought in the blood sugars wero reviewed today. Average blood sugar post meal 108-339( most BGs at at 124-222). The patient is not having problems with hypoglycemia. Patient is compliant with medication regimen. Taking Tresiba 60 units BID, Novolog 10 units TIDAC,and farxiga 10mg daily Patient is better compliant with diet but unable to exercise due to obesity Thyroid: Pt is taking 200 mcg QAM. She is compliant. She reports some worsening hair loss. She has no issues with skin and nails. . She reports using her CPAP but that it never seemed to help her energy levels when she started it. DIABETIC HEALTH MAINTENANCE Last Ophthalmology visit was 11/2018 Patient on WILLIE/ARB therapy - Yes Patient on ASA therapy - Yes. Patient on Statin/Fibrate therapy - Yes. Patient received Flu shot this season - Yes. Patient instructed about daily feet exams, last sensation exam was 03/26/2019 . Patient has received Nutrition/Diet/Diabetes Education on 2019 HISTORY Past Medical History: Diagnosis Date Diabetes mellitus Fibromyalgia Hypertension Thyroid disease Past Surgical History: Procedure Laterality Date REMOVAL OF HEEL SPUR TUBAL LIGATION Family History Problem Relation Age of Onset Cancer Mother Hypertension Mother Hypertension Father Diabetes Father Heart Father Coronary Heart Disease Father ICD Addisons disease Father Social History Socioeconomic History Marital status: Spouse name: Not on file Number of children: Not on file Years of education: Not on file Highest education level: Not on file Occupational History Not on file Social Needs Financial resource strain: Not on file Food insecurity Worry: Not on file Inability: Not on file Transportation needs Medical: Not on file Non-medical: Not on file Tobacco Use Smoking status: Never Smoker Smokeless tobacco: Never Used Substance and Sexual Activity Alcohol use: No Drug use: No Sexual activity: Not on file Lifestyle Physical activity Days per week: Not on file Minutes per session: Not on file Stress: Not on file Relationships Social connections Talks on phone: Not on file Gets together: Not on file Attends buddhist service: Not on file Active member of club or organization: Not on file Attends meetings of clubs or organizations: Not on file Relationship status: Not on file Intimate partner violence Fear of current or ex partner: Not on file Emotionally abused: Not on file Physically abused: Not on file Forced sexual activity: Not on file Other Topics Concern Not on file Social History Narrative Not on file REVIEW OF SYSTEMS Constitutional: + weight gain, + fatigue and hair loss Eyes: denies blurry vision, denies diplopia and denies pain. Neck: denies pain, denies swollen glands Cardiovascular: denies chest pain , denies irregular pulse and denies palpitations. Respiratory: denies dyspnea on exertion and denies shortness of breath. Gastrointestinal: denies abdominal pain, denies constipation and denies diarrhea. Genitourinary: denies burning and denies dysuria. Musculoskeletal: + back pain,+muscle pain and denies weakness. Skin: denies dry skin Neuro: denies numbness , denies tingling and denies tremor. Psych: negative. Endocrine: denies goiter, denies intolerance to cold, denies intolerance to heat, denies polydipsia, denies polyphagia and denies polyuria. PHYSICAL EXAM No results found for: POCGLU External CREATININE (no units) Date Value 02/18/2019 0.91 External CHOL (no units) Date Value 11/11/2018 210 (A) External HDL CHOL (no units) Date Value 11/11/2018 60 External LDL CHOL (no units) Date Value 11/11/2018 130 External TRIG (no units) Date Value 11/11/2018 102 MICROAL/CR (ug/mmol creatinine) Date Value 10/24/2017 4,239 (H) POCT HBA1C (%) Date Value 09/17/2019 6.8 (A) 03/26/2019 6.9 (A) External HGB A1C (no units) Date Value 11/11/2018 10.1 (A) BP (!) 143/84 (BP Location: Left arm, Patient Position: Sitting, BP CUFF SIZE: Adult XL) | Pulse 88 | Resp 18 | Ht 5' 2" (1.575 m) | Wt 402 lb (182.3 kg) | BMI 73.53 kg/m General: alert, oriented times three, no apparent distress, appearing age appropriate. Skin: skin color and turgor are normal Head: normocephalic, no masses, lesions, tenderness or abnormalities. Eyes: anicteric sclera, pupils are equally round and reactive to light. Neck: +acanthosis nigricans Thyroid: normal size and consistency to palaption Lungs: good diaphragmatic excursion, lungs clear to auscultation bilaterally. Heart: regular rate and rhythm, no murmurs, gallops or rubs. Abdomen: abdomen soft, non-tender, normal active bowel sounds, + obese. Neuro: unremarkable without focal findings. Extremities/Musculoskeletal: no cyanosis, no edema Outside lab 02/2019 A1c=7.0 YF=597/TG=84/HDL=64/LDL=98 Micro/cr=32.7 Free T4=1.35 TSH=1.72 CMP/CBC WNL ASSESSMENT/PLAN 1. 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 METABOLIC PANEL (60976); Future - MICROALBUMIN URINE - SPOT SAMPLE; Future - CBC WITH DIFF; Future Patient Instructions Continue current Tresiba , Novolog and Farxiga 2. Primary hypothyroidism Patient reports hiar loss, but TFT at target Plan Continue - levothyroxine (SYNTHROID) 200 mcg tablet; TAKE 1 TABLET BY MOUTH INTHE MORNINGS ON EMPTY STOMACH Dispense: 90 tablet; Refill: 1 - THYROID STIMULATING HORMONE; Future - T4 FREE; Future 3. Essential hypertension BP in clinic was at target Follow up with PP for refill BP meds 4. Dyslipidemia Lipid was at goal Continue pravastatin 20mg daily - LIPID PANEL (20536)(TOTAL CHOLESTEROL, TRIGLYCERIDES, HDL); Future 5. Weight gain Had weight gain during COVID outbreak Plan continue - phentermine 37.5 mg tablet; Take 1 tablet by mouth daily with breakfast. Dispense: 90 tablet; Refill: 1 - topiramate (TOPAMAX) 50 mg tablet; Take 1 tablet by mouth 2 (two) times daily. Dispense: 60 tablet; Refill: 4 Matilda Rodriguez LVN - 09/17/2019 9:30 AM CDT POCT HBA1C (%) Date Value 09/17/2019 6.8 (A) 03/26/2019 6.9 (A) External HGB A1C (no units) Date Value 11/11/2018 10.1 (A) Dasha Christieectronically signed by Matilda Vasquez LVN at 10/09/2019 10:26 PM CDTdocumented in this encounter Plan of Treatment Date Type Specialty Care Team Description 01/20/2020 Office Visit Endocrinology Diabetes & Dain Gillis MD Metabolism [address] [place] [address] Name Type Priority Associated Diagnoses Order S chedule COMP. METABOLIC PANEL LAB Routine Type 2 diabetes norberto litus Expected: (11438) with proteinuric diabetic , Expires: nephropathy 09/16/2020 LIPID PANEL (87574)(TOTAL LAB Routine Dyslipidemia Ex pected: CHOLESTEROL, 09/17/2019, Exp ires: TRIGLYCERIDES, HDL) 09/17/19 21 MICROALBUMIN URINE - SPOT LAB Routine Type 2 diabetes mellitus Expected: SAMPLE with proteinuric diabetic , Expires: nephropathy 09/16/2020 CBC WITH DIFF LAB Routine Type 2 diabetes mellitus Ex pected: with proteinuric diabetic , Expires: nephropathy 09/16/2020 THYROID STIMULATING LAB Routine Primary hypothyroidis m Expected: HORMONE 09/17/2019, Exp ires: 09/16/2020 T4 FREE LAB Routine Primary hypothyroidism Expec kyle: 09/17/2019, Exp ires: 09/16/2020 Health Maintenance Due Date Last Done Comments HEPATITIS C (HCV) SCREEN 1955 EYE EXAM 1966 Depression Screening 1968 DTaP,Tdap,and Td Vaccines (1 07/17/1975 - Tdap) PAP SMEAR 1977 Breast Cancer Screening 1996 (MAMMOGRAM) COLON CANCER SCREENING 2006 ANNUAL FIT/FOBT COLON CANCER SCREENING FIT 2006 DNA EVERY 3 YEARS COLON CANCER SCREENING 2006 SIGMOIDOSCOPY EVERY 5 YEARS COLONOSCOPY 2006 Colorectal Cancer Screening 2006 Zoster Recombinant Vaccine 2006 (SHINGRIX) (1 of 2) INFLUENZA VACCINE (#1) 2019 LDL-C 11/12/2019 11/11/2018, 07/18/2017 URINE MICROALBUMIN 11/12/2019 11/11/2018, 10/24/2017, 07/18/2017 CREATININE (SERUM) 02/19/2020 02/18/2019, 09/23/2017 HgA1C 03/19/2020 09/17/2019, 03/26/2019, 11/11/2018, Additional history exists FOOT EXAM 09/16/2020 09/17/2019, 09/17/2019, 03/26/2019, Additional history exists PNEUMOCOCCAL 0-64 YEARS Aged Out No longe r eligible COMBINED SERIES based on patient 's age to complete this topic documented as of this encounter Procedures Procedure Name Priority Date/Time Associated Diagnosis Comme nts POCT HEMOGLOBIN A1C Routine 09/17/2019 Type 2 diabetes Resul ts for this TEST mellitus with procedure are in the proteinuric diabetic results section. 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 Dates [facility] [id number] [phone] [phone] [place] [address] documented as of this encounter
--- OUTSIDE RECORDS SUMMARY | 2019-12-23 17:19 | XMS REPORT | Continuity of Care Document ---
:1955 Author Organization [facility] t Address [address] [place] [address] [address] [place] [address] Care Team Providers Name Role Phone Carlin BROWN Attending Clinician Problems This patient has no known problems. Allergies, Adverse Reactions, Alerts This patient has no known allergies or adverse reactions. Medications This patient has no known medications. Procedures This patient has no known procedures. Encounters Start End Encounter Admission Attending Care Care Encounter Source Date/Time Date/Time Type Type Clinicians Facility Department ID 2019-11-10 2019-11-10 Refill Gillis, [facility] [id number] 00:00:00 00:00:00 Opaltimbo Ruiz [id number] [place] [id number] [facility] [phone] formerly [facility] 220 [facility] 2019-11-07 2019-11-07 Refill Gillis, [facility] [id number] 00:00:00 00:00:00 Gregoria Ruiz [id number] [place] [id number] Professio [phone] [facility] 220 Building 2019-09-17 2019-09-17 Office Gillis, [facility] [id number] 09:05:27 10:51:52 Visit Gregoria Sara [id number] [place] [id number] [facility]io [phone] [facility] 220 [facility] Results This patient has no known results.
--- OUTSIDE RECORDS SUMMARY | 2019-12-23 17:20 | XMS REPORT | Summary of Care ---
:1955 Author Organization [facility] Address [address] [place] [address] Care Team Providers Name Role Phone Noa Riley Joanne Primary Care Provider Reason for Visit Reason Comments Refill Request Encounter Details Date Type Department Care Team Description 11/10/2019 Refill [facility] Endocrinology- Gregoria Gillis MD Refill Request [address] [address] [address] [place] [address] [phone] Allergies Active Allergy Reactions Severity Noted Date Comments Clarithromycin Other - See comments 04/10/2017 Chest pain Morphine Hallucinations 04/10/2017 Penicillins Rash, Shortness of Breath 04/10/2017 documented as of this encounter (statuses as of 11/10/2019) Medications Medication Sig Dispensed Refills Start Date End Date Status KCL 20 mEq tablet Take 20 mEq by 0 Active mouth daily. pravastatin 20 mg Take 20 mg by 0 Active tablet mouth at bedtime. amLODIPine 10 mg tablet Take 10 mg by 0 Active mouth daily. pregabalin (LYRICA) 150 Take 150 mg by 0 Active mg capsule mouth 3 (three) times daily. doxazosin 1 mg tablet Take 1 mg by 0 Active mouth at bedtime. metoprolol succinate XL Take 50 mg by 0 Active 50 mg 24 hr tablet mouth daily. Milnacipran (SAVELLA) Take by mouth 2 0 Active 100 mg Tab (two) times daily. Acetaminophen-Butalbita Take by mouth as 0 Active l 50-325 mg Tab needed. pentoxifylline 400 mg Take 400 mg by 0 Active SR tablet mouth daily. furosemide (LASIX) 40 Take 40 mg by 0 Active mg tablet mouth as needed. ondansetron 4 mg tablet Take 4 mg by 0 Active mouth every 8 (eight) hours as needed for Nausea and Vomiting (N/V). Blood-Glucose Meter Use as directed, 1 Kit 0 08/22/2017 Active (BLOOD GLUCOSE DX:E11.9, TID MONITORING) Kit blood sugar diagnostic Use as directed, 300 Strip 1 08/22/2017 Active (BLOOD GLUCOSE TEST) TID, DX:E11.9 strip lancets 33 gauge Misc Use as directed, 300 Each 1 08/22/2017 Active TID, DX:E11.9 losartan 100 mg Take 1 tablet by 90 tablet 3 10/24/2017 Active tabletIndications: mouth daily. Essential hypertension pantoprazole (PROTONIX) Take 40 mg by 0 Active 40 mg EC tablet mouth daily. Lactobacillus Take by mouth. 0 Active acidophilus (ACIDOPHILUS ORAL) lancets (BD MICROTAINER Use as directed 100 Each 3 01/23/2018 Active LANCET) 30 gauge Misc once daily DX E11.21 insulin aspart U-100 inject 10 Units 15 mL 4 03/26/2019 Active (NOVOLOG FLEXPEN U-100 under the skin 3 INSULIN) 100 unit/mL (3 (three) times mL) daily before injectionIndications: meals. 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 topiramate (TOPAMAX) 50 Take 1 tablet by 60 tablet 4 0 Active mg tabletIndications: mouth 2 (two) Weight gain times daily. documented as of this encounter (statuses as of 11/10/2019) Active Problems Problem Noted Date Primary hypothyroidism 01/23/2018 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 10/24/2017 Essential hypertension 10/24/2017 Vitamin D deficiency 10/24/2017 Dyslipidemia 10/24/2017 Chronic fatigue 10/24/2017 Vitiligo 10/24/2017 documented as of this encounter (statuses as of 11/10/2019) Social History Tobacco Use Types Packs/Day Years Used Date Never Smoker Smokeless Tobacco: Never Used Alcohol Use Drinks/Week oz/Week Comments No Sex Assigned at Date Recorded Not on file documented as of this encounter Last Filed Vital Signs Not on filedocumented in this encounter Miscellaneous Notes Telephone Encounter - Ese Martinez RN - 11/10/2019 3:11 PM CDTNOV: 01/20/20 PHYLICIA: 09/17/19 Prescription sent 09/17/19 for a 90 day supply, plus 1 refill. Prescription good until 04/04. documented in this encounter Plan of Treatment Date Type Specialty Care Team Description 01/20/2020 Office Visit Endocrinology Diabetes & Dain Gillis MD Metabolism [facility] [place], [place] [id number] Health Maintenance Due Date Last Done Comments [...] 03/26/2019, 11/11/2018, Additional history exists FOOT EXAM 03/26/2020 03/26/2019, 03/26/2019, 10/24/2017, Additional history exists PNEUMOCOCCAL 0-64 YEARS Aged Out No longe r eligible COMBINED SERIES based on patient 's age to complete this topic documented as of this encounter Results Not on filedocumented in this encounter Visit Diagnoses Diagnosis Weight gain Abnormal weight gain documented in this encounter Insurance Payer Benefit Plan / Subscriber ID Effective Phone Address T e Group Dates [facility] [id number] 2016-[employer] [phone] [address] [employer] [facility] [employer] nt [id number] [place] [address] documented as of this encounter
--- OUTSIDE RECORDS SUMMARY | 2019-12-23 17:20 | XMS REPORT | Summary of Care ---
:1955 Author Organization [facility] Address [address] [place] [address] Care Team Providers Name Role Phone Noa Riley Joanne Primary Care Provider Reason for Visit Reason Comments Refill Request Encounter Details Date Type Department Care Team Description 11/07/2019 Refill [facility] Endocrinology- Gregoria Gillis MD Refill Request [address] [address] [address] [place] [address] [phone] Allergies Active Allergy Reactions Severity Noted Date Comments Clarithromycin Other - See comments 04/10/2017 Chest pain Morphine Hallucinations 04/10/2017 Penicillins Rash, Shortness of Breath 04/10/2017 documented as of this encounter (statuses as of 11/07/2019) Medications Medication Sig Dispensed Refills Start Date [...] as of this encounter (statuses as of 11/07/2019) Active Problems Problem Noted Date Primary hypothyroidism 01/23/2018 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 10/24/2017 Essential hypertension 10/24/2017 Vitamin D deficiency 10/24/2017 Dyslipidemia 10/24/2017 Chronic fatigue 10/24/2017 Vitiligo 10/24/2017 documented as of this encounter (statuses as of 11/07/2019) Social History Tobacco Use Types Packs/Day Years Used Date Never Smoker Smokeless Tobacco: Never Used Alcohol Use Drinks/Week oz/Week Comments No Sex Assigned at Date Recorded Not on file documented as of this encounter Last Filed Vital Signs Not on filedocumented in this encounter Miscellaneous Notes Telephone Encounter - Pauline Gandara LVN - 11/07/2019 4:36 PM CDT PHYLICIA-09/17/19 NOV-01/20/20 Refill request received for phentermine 37.5 mg tablet. Refill sent via eRx to preferred pharmacy on 09/17/19 for 90 day supply with 1 additional refill. documented in this encounter Plan of Treatment Date Type Specialty Care Team Description 01/20/2020 Office Visit Endocrinology Diabetes & Dain Gillis MD Metabolism [facility] [place] [address] [phone] Health Maintenance Due Date Last Done Comments [...] / Subscriber ID Effective Phone Address [employer] Dates [facility] [id number] 2016-[employer] [phone] [address] [employer] [facility] nt [phone] [place] [address] documented as of this encounter
--- OUTSIDE RECORDS SUMMARY | 2019-12-23 17:20 | XMS REPORT | Summary of Care ---
:1955 Author Organization 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 (Primary Dx); Endocrinology- [facility] Primary hypothyroidism; [facility] Essential hypertension; [address] [place], [place] [address], [address] [address] Weight gain [place], [place] [phone] [address] [phone] Allergies Active Allergy Reactions Severity Noted Date [...] file Gets together: Not on file Attends anabaptist service: Not on file Active member of [...] cyanosis, no edema Outside lab 02/2019 A1c=7.0 DI=366/TG=84/HDL=64/LDL=98 Micro/cr=32.7 Free T4=1.35 TSH=1.72 CMP/CBC WNL ASSESSMENT/PLAN [...] HEMOGLOBIN A1C TEST - COMP. METABOLIC PANEL (29892); Future - MICROALBUMIN URINE - SPOT SAMPLE; [...] Continue pravastatin 20mg daily - LIPID PANEL (72957)(TOTAL CHOLESTEROL, TRIGLYCERIDES, HDL); Future 5. Weight gain [...] Diabetes & Dain Gillis MD Metabolism [address] [place] [address] Name Type Priority Associated Diagnoses Order S chedule COMP. METABOLIC PANEL LAB Routine Type 2 diabetes norberto litus Expected: (09502) with proteinuric diabetic , Expires: nephropathy 09/16/2020 LIPID PANEL (04805)(TOTAL LAB Routine Dyslipidemia Ex pected: CHOLESTEROL, 09/17/2019, [...] Plan / Subscriber ID Effective Phone Address [facility] Dates [facility] [id number] [phone] [employer] [phone] [place] [address] documented as of this encounter
--- NOTE | 2019-12-23 19:48 | RAD REPORT ---
EXAM DESCRIPTION: Rebekah Single View12/23/2019 7:41 pm CLINICAL HISTORY: Shortness of breath COMPARISON: March 2019 FINDINGS: The lungs appear clear of acute infiltrate. The heart is normal size IMPRESSION: No acute abnormalities displayed
--- NOTE | 2019-12-23 20:39 | RAD REPORT ---
EXAM DESCRIPTION: USExtrem Venous W Compress Bil12/23/2019 8:29 pm CLINICAL HISTORY: Leg pain and swelling COMPARISON: 2011 FINDINGS: The common femoral, superficial femoral, popliteal and posterior tibial veins bilaterally are compressible and demonstrate augmentation. Doppler demonstrates good flow. IMPRESSION: No evidence of deep venous thrombosis involving either lower extremity.
[2019-12-23 21:09] LABS: Absolute Lymphocytes (CBC) 0.9 K/uL (0.7-4.9); Basophils % 0.6 % (0-1.3); Hematocrit 36.3 % (36.0-45.0); Lymphocytes % 8.2 % (15.3-44.8); MPV 8.5 fL (7.6-11.3); RBC Red Blood Cell Count 4.03 M/uL (3.86-4.86)
[2019-12-23 21:11] LABS: Protime INR 0.96
[2019-12-23 21:30] LABS: ALT/SGPT 40 U/L (12-78); AST/SGOT 13 U/L (15-37); Alkaline Phosphatase 100 U/L (45-117); BUN Blood Urea Nitrogen 26 mg/dL (7-18); Bicarbonate 26 mmol/L (21-32); Bilirubin Direct < 0.1 mg/dL (0-0.2); Bilirubin Total 0.2 mg/dL (0.2-1.0); Glucose Level 138 mg/dL (74-106); Magnesium 1.9 mg/dL (1.8-2.4); NT PRO-BNP 67 pg/mL (<125); Potassium 4.3 mmol/L (3.5-5.1); Protein, Total 6.8 g/dL (6.4-8.2); Sodium Level 142 mmol/L (136-145); Troponin (Emerg Dept Use Only) < 0.02 ng/mL (0.0-0.045)
--- NOTE | 2019-12-23 21:52 | EDPHYS ---
Physician Documentation [facility] Name: Kathia Phipps Age: 64 yrs Sex: Female : 1955 Arrival Date: 12/23/2019 Time: 17:21 Bed 17 Private MD: ED Physician Devin Morgan HPI: 12/22 19:15 This 64 yrs old Female presents to ER via Wheelchair with complaints of Edema, cp Wound Check. 19:15 The patient presents with cellulitis of the lower abdomen and pannus. cp 19:15 Description: draining, erythematous. Onset: The symptoms/episode began/occurred 1 cp week(s) ago. Associated signs and symptoms: Pertinent positives: drainage, shortness of breath, Pertinent negatives: fever. Patient reports she has been taking oral antibiotic without improvement. Historical: - Allergies: 17:43 Morphine; ca1 17:43 PENICILLINS; ca1 17:43 Januvia; ca1 17:43 Farmiga; ca1 17:43 Latex, Natural Rubber; ca1 - Home Meds: 17:43 pentoxifylline 400 mg Oral TbER 1 tab daily [Active]; doxazosin 1 mg Oral tab 1 tab ca1 once daily [Active]; pregabalin Oral 150 mg 3 times per day [Active]; losartan 100 mg Oral tab 1 tab once daily [Active]; Vitamin D Oral [Active]; ropinirole oral oral [Active]; furosemide 20 mg oral tab 1 tab once daily [Active]; Savella 100 mg Oral tab 1 tab 2 times per day [Active]; amlodipine 10 mg tab 1 tab once daily [Active]; metoprolol succinate 50 mg Oral Tb24 1 tab once daily [Active]; spironolactone 25 mg Oral tab 1 tab once daily [Active]; potassium chloride 20 mEq Oral TbER 1 tab once daily [Active]; Breo Ellipta 200-25 mcg/dose inhalation dsdv 1 puff once daily [Active]; Novolog Flexpen 100 unit/mL subcutaneous inpn three times a day [Active]; Tresiba FlexTouch U-200 200 unit/mL (3 mL) subcutaneous inpn twice a day [Active]; topiramate 50 mg Oral tab 1 tab 2 times per day [Active]; phentermine 37.5 mg oral tab 1 tab once daily [Active]; MANUEL Herman Ortiga and [place] 3 [Active]; - PMHx: 17:43 Diabetes - IDDM; Fibromyalgia; Hypertension; Sleep Apnea; dyslipidemia; Chronic ca1 fatigue; Vitamin D Deficiency; Vitiligo; Hypothyroidism; GERD; - PSHx: 17:43 Tubal ligation; ca1 - Immunization history:: Adult Immunizations up to date, Flu vaccine is not up to date. - Social history:: Smoking status: Patient denies any tobacco usage or history of. ROS: 19:20 Constitutional: Negative for fever, poor PO intake. cp 19:20 Eyes: Negative for injury, pain, redness, and discharge. cp 19:20 Cardiovascular: Negative for chest pain, palpitations. 19:20 Respiratory: Positive for shortness of breath, on exertion. Negative for cough, wheezing. 19:20 Abdomen/GI: Positive for abdominal pain, Negative for vomiting, diarrhea, constipation. 19:20 : Negative for urinary symptoms. 19:20 Skin: Positive for cellulitis, of the abdomen. 19:20 All other systems are negative. Exam: 19:25 Constitutional: The patient appears in no acute distress, alert, awake, cp non-diaphoretic, non-toxic, well developed, well nourished, obese. 19:25 Head/Face: Normocephalic, atraumatic. cp 19:25 Eyes: Periorbital structures: appear normal, Conjunctiva: normal, no exudate, no injection, Sclera: no appreciated abnormality, Lids and lashes: appear normal, bilaterally. 19:25 Chest/axilla: Inspection: normal. 19:25 Cardiovascular: Rate: normal, Rhythm: regular, Edema: is not appreciated, JVD: is not appreciated. 19:25 Respiratory: the patient does not display signs of respiratory distress, Respirations: normal, no use of accessory muscles, no retractions, labored breathing, is not present, Breath sounds: are clear throughout, no decreased breath sounds, no stridor, no wheezing. 19:25 Abdomen/GI: Inspection: obese Palpation: soft, in all quadrants, moderate abdominal tenderness, in the lower abdomen. 19:25 Skin: cellulitis, irregular, on the lower abomen and pannus. 19:25 Neuro: Orientation: to person, place \T\ time. Mentation: is normal. 21:07 ECG was reviewed by the Attending Physician. cp Vital Signs: 17:29 BP 155 / 58; Pulse 92; Resp 16 S; Temp 97.4(TE); Pulse Ox 96% on R/A; Weight 192.78 kg ca1 (R); Height 5 ft. 2 in. (157.48 cm) (R); Pain 0/10; 19:52 BP 162 / 98; Pulse 89; Resp 18; Pulse Ox 96% on R/A; aj1 20:44 BP 156 / 73; Pulse 81; Resp 18; Pulse Ox 99% on R/A; aj1 21:43 BP 152 / 79; Pulse 77; Resp 18; Pulse Ox 96% on R/A; aj1 22:28 Weight 192.05 kg (M); aj1 23:53 BP 144 / 79; Pulse 88; Resp 18; Pulse Ox 97% on R/A; aj1 22:28 Body Mass Index 77.44 (192.05 kg, 157.48 cm) aj1 MDM: 19:12 Patient medically screened. cp 20:00 Differential diagnosis: abscess, cellulitis, sepsis, pulmonary edema, DVT. 21:35 Data reviewed: vital signs, nurses notes, lab test result(s), EKG, radiologic studies, cp plain films. 21:35 Test interpretation: by ED physician or midlevel provider: ECG. 21:38 Physician consultation: Prince Terri BROWN was called at 21:38, was contacted at 21:38, regarding admission, to the medical/surgical unit. patient's condition. 12/22 19:17 Order name: Wound Culture 12/22 19:17 Order name: Basic Metabolic Panel 12/22 19:17 Order name: CBC with Diff 12/22 19:17 Order name: LFT's; Complete Time: 21:30 12/22 21:30 Interpretation: Normal except: AST 13; ALB 3.0; GLOB 3.8; A/G 0.8. 12/22 19:17 Order name: Magnesium; Complete Time: 21:30 12/22 19:17 Order name: NT PRO-BNP; Complete Time: 21:30 12/22 19:17 Order name: PT-INR; Complete Time: 21:14 12/22 19:17 Order name: Troponin (emerg Dept Use Only); Complete Time: 21:30 12/22 19:17 Order name: Blood Culture Adult (2) cp 12/22 19:17 Order name: Lactate; Complete Time: 21:30 cp 12/22 19:17 Order name: Procalcitonin cp 12/22 19:18 Order name: Wound Culture EDMS 12/22 19:18 Order name: Basic Metabolic Panel; Complete Time: 21:30 EDMS 12/22 19:18 Order name: CBC with Automated Diff; Complete Time: 21:14 EDMS 12/22 21:14 Interpretation: Normal except: WBC 11.0; RDW 15.4; MIO% 84.6; LYM% 8.2; NEUT A 9.3. cp 12/22 18:39 Order name: Chest Single View XRAY; Complete Time: 21:14 snw 12/22 19:17 Order name: EKG; Complete Time: 19:18 cp 12/22 19:17 Order name: Cardiac monitoring; Complete Time: 21:12 12/22 19:17 Order name: EKG - Nurse/Tech; Complete Time: 21:12 12/22 19:17 Order name: IV Saline Lock; Complete Time: 21:02 12/22 19:17 Order name: Labs collected and sent; Complete Time: 21:03 12/22 19:17 Order name: O2 Per Protocol; Complete Time: 21:03 12/22 19:17 Order name: O2 Sat Monitoring; Complete Time: 21:03 12/22 19:17 Order name: US Extremity Venous W Compression Del; Complete Time: 21:14 12/22 21:37 Order name: CT Abd/Pelvis - IV Contrast Only cp EC:07 Rate is 76 beats/min. Rhythm is regular. MS interval is normal. QRS interval is normal. cp QT interval is normal. T waves are Flattened in lead aVL. Interpreted by me. Reviewed by me. Administered Medications: 22:28 Drug: Clindamycin 900 mg Route: IVPB; Infused Over: 30 mins; Site: right antecubital; aj1 23:25 Follow up: IV Status: Completed infusion; IV Intake: 50ml aj1 23:25 Drug: vancoMYCIN 1 grams Route: IVPB; Infused Over: 2 hrs; Site: right antecubital; aj1 23:53 Follow up: IV Status: Infusion continued upon admission aj1 Disposition: 12/23 00:24 Co-signature as Attending Physician, Devin Morgan MD. rn Disposition: 12/23/19 21:51 Hospitalization ordered by Prince Terri for Inpatient Admission. Preliminary diagnosis is Cellulitis of abdominal wall - pannus. - Bed requested for Telemetry/MedSurg (Inpatient). - Status is Inpatient Admission. aj1 - Condition is Stable. - Problem is an ongoing problem. - Symptoms have improved. Signatures: Dispatcher [employer] EDMS Vanessa Evans RN RN aj1 Devin Morgan MD MD rn Lasagna, Tonya, RN RN tl1 Selwyn Jackson PA PA cp Aconur, Dixie, RN RN ca1 Corrections: (The following items were deleted from the chart) 12/22 22:14 21:51 Hospitalization Ordered by Prince Terri BROWN for Inpatient Admission. Preliminary tl1 diagnosis is Cellulitis of abdominal wall - pannus. Bed requested for Telemetry/MedSurg (Inpatient). Status is Inpatient Admission. Condition is Stable. Problem is an ongoing problem. Symptoms have improved. cp 12/23 00:00 12/22 22:14 12/23/2019 21:51 Hospitalization Ordered by Prince Terri BROWN for Inpatient aj1 Admission. Preliminary diagnosis is Cellulitis of abdominal wall - pannus. Bed requested for Telemetry/MedSurg (Inpatient). Status is Inpatient Admission. Condition is Stable. Problem is an ongoing problem. Symptoms have improved. tl1 12/23 04:01 12/22 19:15 Onset: The symptoms/episode began/occurred gradually, cp cp 12/23 04:01 12/22 19:15 Patient reports she has been taking oral antibiotic for past 1 week without cp improvement. cp
--- NOTE | 2019-12-23 21:52 | ER ---
Nurse's Notes [facility] Name: Kathia Phipps Age: 64 yrs Sex: Female : 1955 Arrival Date: 12/23/2019 Time: 17:21 Bed 17 Private MD: Diagnosis: Cellulitis of abdominal wall-pannus Presentation: 12/22 17:29 Chief complaint: Patient states: Wound on R thigh x 1 week. Oral abx given and almost ca1 completed but no relief. Wound still looks unhealed. Sent here by PCP for IV abx. States, "she also said she says hears a 3rd heart beat and may have retained a lot of fluids cause I gained 15 lbs in the last week". Denies fever. Denies pain. Reports SOB. Coronavirus screen: Client denies travel out of the [place] in the last 14 days. shortness of breath, Client presents with at least one sign or symptom that may indicate coronavirus-19. Standard/surgical mask placed on the client. Provider contacted for isolation considerations. The client denies any previous COVID testing. Ebola Screen: Patient negative for fever greater than or equal to 101.5 degrees Fahrenheit, and additional compatible Ebola Virus Disease symptoms Patient denies exposure to infectious person. Patient denies travel to an Ebola-affected area in the 21 days before illness onset. No symptoms or risks identified at this time. Initial Sepsis Screen: Does the patient meet any 2 criteria? No. Patient's initial sepsis screen is negative. Does the patient have a suspected source of infection? No. Patient's initial sepsis screen is negative. Risk Assessment: Do you want to hurt yourself or someone else? Patient reports no desire to harm self or others. Onset of symptoms was December 23, 2019. 17:29 Method Of Arrival: Wheelchair ca1 17:29 Acuity: ISSAC 3 ca1 Historical: - Allergies: 17:43 Morphine; ca1 17:43 PENICILLINS; ca1 17:43 Januvia; ca1 17:43 Farmiga; ca1 17:43 Latex, Natural Rubber; ca1 - Home Meds: 17:43 pentoxifylline 400 mg Oral TbER 1 tab daily [Active]; doxazosin 1 mg Oral tab 1 tab ca1 once daily [Active]; pregabalin Oral 150 mg 3 times per day [Active]; losartan 100 mg Oral tab 1 tab once daily [Active]; Vitamin D Oral [Active]; ropinirole oral oral [Active]; furosemide 20 mg oral tab 1 tab once daily [Active]; Savella 100 mg Oral tab 1 tab 2 times per day [Active]; amlodipine 10 mg tab 1 tab once daily [Active]; metoprolol succinate 50 mg Oral Tb24 1 tab once daily [Active]; spironolactone 25 mg Oral tab 1 tab once daily [Active]; potassium chloride 20 mEq Oral TbER 1 tab once daily [Active]; Breo Ellipta 200-25 mcg/dose inhalation dsdv 1 puff once daily [Active]; Novolog Flexpen 100 unit/mL subcutaneous inpn three times a day [Active]; Tresiba FlexTouch U-200 200 unit/mL (3 mL) subcutaneous inpn twice a day [Active]; topiramate 50 mg Oral tab 1 tab 2 times per day [Active]; phentermine 37.5 mg oral tab 1 tab once daily [Active]; MANUEL Herman Ortiga and [place] 3 [Active]; - PMHx: 17:43 Diabetes - IDDM; Fibromyalgia; Hypertension; Sleep Apnea; dyslipidemia; Chronic ca1 fatigue; Vitamin D Deficiency; Vitiligo; Hypothyroidism; GERD; - PSHx: 17:43 Tubal ligation; ca1 - Immunization history:: Adult Immunizations up to date, Flu vaccine is not up to date. - Social history:: Smoking status: Patient denies any tobacco usage or history of. Screenin:49 Abuse screen: Denies threats or abuse. Denies injuries from another. Nutritional aj1 screening: No deficits noted. Tuberculosis screening: No symptoms or risk factors identified. 23:52 Fall Risk None identified. aj1 Assessment: 17:54 Reassessment: Wants a female nurse. ca1 19:49 General: Appears in no apparent distress. uncomfortable, obese, Behavior is calm, aj1 cooperative, appropriate for age. Pain: Denies pain. Neuro: Level of Consciousness is awake, alert, obeys commands, Oriented to person, place, time, situation. Cardiovascular: Reports shortness of breath, Heart tones S1 S2 present Patient's skin is warm and dry. Respiratory: Reports shortness of breath on exertion Airway is patent Respiratory effort is even, unlabored, Respiratory pattern is regular, symmetrical, Breath sounds with crackles bilaterally. GI: No signs and/or symptoms were reported involving the gastrointestinal system. : No signs and/or symptoms were reported regarding the genitourinary system. EENT: No signs and/or symptoms were reported regarding the EENT system. Derm: Wound noted medial aspect of right thigh and medial aspect of left thigh Other: Patient states that these wounds have been draining and she has been on antibiotics for a week for a possible infection of the wounds. She was told by her PHCP to come to the ER if her symptoms did not resolve within a week. Musculoskeletal: No signs and/or symptoms reported regarding the musculoskeletal system. 20:44 Reassessment: Patient appears in no apparent distress at this time. No changes from aj1 previously documented assessment. Patient and/or family updated on plan of care and expected duration. Pain level reassessed. Patient is alert, oriented x 3, equal unlabored respirations, skin warm/dry/pink. 21:43 Reassessment: Patient appears in no apparent distress at this time. No changes from aj1 previously documented assessment. Patient and/or family updated on plan of care and expected duration. Pain level reassessed. Patient is alert, oriented x 3, equal unlabored respirations, skin warm/dry/pink. 22:45 Reassessment: Patient and/or family updated on plan of care and expected duration. Pain aj1 level reassessed. General: Appears in no apparent distress. comfortable, Behavior is calm, cooperative, appropriate for age. Neuro: Level of Consciousness is awake, alert, obeys commands, Oriented to person, place, time, situation. Cardiovascular: Patient's skin is warm and dry. Respiratory: Airway is patent Respiratory effort is even, unlabored, Respiratory pattern is regular, symmetrical. Derm: Skin is pink, warm \\T\\ dry. Musculoskeletal: Circulation, motion, and sensation intact. 23:53 Reassessment: Patient appears in no apparent distress at this time. No changes from aj1 previously documented assessment. Patient and/or family updated on plan of care and expected duration. Pain level reassessed. Patient is alert, oriented x 3, equal unlabored respirations, skin warm/dry/pink. Vital Signs: 17:29 BP 155 / 58; Pulse 92; Resp 16 S; Temp 97.4(TE); Pulse Ox 96% on R/A; Weight 192.78 kg ca1 (R); Height 5 ft. 2 in. (157.48 cm) (R); Pain 0/10; 19:52 BP 162 / 98; Pulse 89; Resp 18; Pulse Ox 96% on R/A; aj1 20:44 BP 156 / 73; Pulse 81; Resp 18; Pulse Ox 99% on R/A; aj1 21:43 BP 152 / 79; Pulse 77; Resp 18; Pulse Ox 96% on R/A; aj1 22:28 Weight 192.05 kg (M); aj1 23:53 BP 144 / 79; Pulse 88; Resp 18; Pulse Ox 97% on R/A; aj1 22:28 Body Mass Index 77.44 (192.05 kg, 157.48 cm) aj1 ED Course: 17:21 Patient arrived in ED. mr 17:33 Triage completed. ca1 17:43 Arm band placed on right wrist. ca1 19:04 Selwyn Jackson PA is PHCP. cp 19:04 Devin Morgan MD is Attending Physician. cp 19:41 Chest Single View XRAY In Process Unspecified. EDMS 19:49 Vanessa Evans, RN is Primary Nurse. aj1 19:49 Patient has correct armband on for positive identification. Bed in low position. Call aj1 light in reach. Pulse ox on. NIBP on. 19:49 No provider procedures requiring assistance completed. aj1 20:29 US Extremity Venous W Compression Del In Process Unspecified. EDMS 20:50 First set of blood cultures drawn by me, Second set of blood cultures drawn by me. ds4 21:03 Inserted saline lock: 22 gauge in right wrist, using aseptic technique. Blood ds4 collected. Missed attempt(s): 20 gauge in right antecubital area. Bleeding controlled, band aid applied, catheter tip intact. 21:49 Prince Murray MD is Hospitalizing Provider. cp 23:52 Report given to NICOLE Pantoja on 2nd floor. aj1 23:52 Patient admitted, IV remains in place. aj1 Administered Medications: 22:28 Drug: Clindamycin 900 mg Route: IVPB; Infused Over: 30 mins; Site: right antecubital; aj1 23:25 Follow up: IV Status: Completed infusion; IV Intake: 50ml aj1 23:25 Drug: vancoMYCIN 1 grams Route: IVPB; Infused Over: 2 hrs; Site: right antecubital; aj1 23:53 Follow up: IV Status: Infusion continued upon admission aj1 Intake: 23:25 IV: 50ml; Total: 50ml. aj1 Outcome: 21:51 Decision to Hospitalize by Provider. cp 23:54 Admitted to Med/surg accompanied by tech, via wheelchair, with chart. aj1 23:54 Condition: good 23:54 Discharge instructions given to patient, family, Instructed on the need for admit, Demonstrated understanding of instructions. 12/23 00:00 Patient left the ED. aj1 Signatures: Dispatcher [employer] EDVanessa Azul, RN RN aj1 Kim Amin mr BernabeDago ds4 Selwyn Jackson PA PA cp Acob, Cheryl RN RN ca1
--- NOTE | 2019-12-23 22:26 | P.HP ---
Certification for Inpatient Patient admitted to: Inpatient With expected LOS: >2 Midnights Practitioner: I am a practitioner with admitting privileges, knowledge of patient current condition, hospital course, and medical plan of care. Services: Services provided to patient in accordance with Admission requirements found in Title 42 Section 412.3 of the Code of Federal Regulations Patient History Date of Service: 12/23/19 Reason for admission: abdominal wall cellulitis History of Present Illness: Patient is a 64 year old female with a past medical history of morbid obesity, type 2 diabetes mellitus, hypothyroidism who presents to the ER complaining of right sided abdominal wall pain. Patient has been having redness, weeping and pain underneath her RLQ pannus. The onset of these symptoms has been spontaneous with trauma or contact with irritants. She was seen by her PCP Dr. Velez who prescribed her antibiotics and some ointment. She does not remember the name of the antibiotics. However, she failed to improve. A tape used during local wound care caused an allergic reaction and further irritated her symptoms. She is now have serosanguinous drainage out of her RLQ region. She has mild chills. Denies any fever. Allergies latex Allergy (Verified 09/22/17 11:05) Hives/Rash morphine Allergy (Verified 09/22/17 11:05) Hallucination Penicillins Allergy (Verified 09/22/17 11:05) palpatations Home Medications: Amlodipine Besylate [Norvasc] 10 mg PO DAILY 10/25/11 Acetaminophen with Codeine [Acetaminophen-Cod #3 Tablet] 1 each PO Q3HR PRN 03/17/17 Doxazosin [Cardura*] 1 mg PO BEDTIME 03/17/17 Insulin Detemir [Levemir Flextouch] 55 units SQ BID 03/17/17 Levothyroxine Sodium [Synthroid] 200 mcg PO DAILY 03/17/17 Losartan Potassium 100 mg PO DAILY 03/17/17 Metoprolol Succinate 50 mg PO BEDTIME 03/17/17 Milnacipran HCl [Savella] 100 mg PO BID 03/17/17 Pentoxifylline 400 mg PO DAILY 03/17/17 Pravastatin Sodium 20 mg PO BEDTIME 03/17/17 Pregabalin [Lyrica] 150 mg PO TID 03/17/17 Sitagliptin Phosphate [Januvia] 100 mg PO DAILY 03/17/17 Topiramate [Topamax*] 50 mg PO BID #20 tab 03/19/17 Loperamide [Imodium*] 2 mg PO TID PRN #20 cap 07/07/17 Ondansetron HCl [Zofran] 4 mg PO TID PRN #20 tablet 07/07/17 Simethicone 125 mg PO TID PRN #30 capsule 07/07/17 Cholecalciferol (Vitamin D3) [Vitamin D3] 1,000 unit PO DAILY 09/22/17 Ciprofloxacin HCl [Cipro 500 MG Tablet] 500 mg PO BID #14 tab 09/23/17 Pantoprazole [Protonix Tab] 40 mg PO DAILY #30 tab 09/23/17 metroNIDAZOLE [Flagyl] 500 mg PO Q8H #21 tablet 09/23/17 - Past Medical/Surgical History Diabetic: Yes -: DM Type 2 -: Vitiligo -: Fibromyalgia -: Hypothyroidism -: HTN -: Vit D deficient -: Morbid obesity -: GERD -: Heel spur repair -: Tubal ligation Psychosocial/ Personal History: She is and lives at home. She has 3 children - Family History Father -: Heart disease, Hypertension, Diabetes, Stroke Notes: STELLA'S DISEASE Mother -: Heart disease, Cancer Notes: MYASTENIA GRAVIS - Social History Alcohol use: No CD- Drugs: No Caffeine use: No Physical Examination - Physical Exam General: Cooperative, Mild distress HEENT: Atraumatic, Normocephalic, EOMI Neck: Supple Respiratory: Clear to auscultation bilaterally, Normal air movement Cardiovascular: No edema, Normal pulses, Regular rate/rhythm, Normal S1 S2 Gastrointestinal: Normal bowel sounds, Non-distended, Tenderness Musculoskeletal: Swelling, Erythema, Tenderness, Warmth, Other (inflamed pannus) Neurological: Normal speech, Sensation intact, Normal affect - Studies Laboratory Data (last 24 hrs) 12/23/19 20:50: PT 11.3, INR 0.96 12/23/19 20:50: WBC 11.0 H, Hgb 12.1, Hct 36.3, Plt Count 189 12/23/19 20:50: Sodium 142, Potassium 4.3, BUN 26 H, Creatinine 0.91, Glucose 138 H, Magnesium 1.9, Total Bilirubin 0.2, AST 13 L, ALT 40, Alkaline Phosphatase 100 Assessment and Plan - Problems (Diagnosis) (1) Abdominal wall cellulitis Current Visit: Yes Status: Acute (2) Type II diabetes mellitus Current Visit: Yes Status: Acute (3) Hypertension Onset Date: 09/24/17 Current Visit: No Status: Chronic Qualifiers: (4) Hypothyroidism Onset Date: 09/24/17 Current Visit: No Status: Chronic Qualifiers: (5) Morbid obesity with BMI of 60.0-69.9, adult Onset Date: 03/19/17 Current Visit: No Status: Chronic (6) PVD (peripheral vascular disease) Current Visit: No Status: Chronic (7) GERD (gastroesophageal reflux disease) Onset Date: 09/24/17 Current Visit: No Status: Suspected - Advance Directives Does patient have a Living Will: No Does patient have a Durable POA for Healthcare: No Physician Review Additional Text: Assessment Patient is a 64 year old female with morbid obesity, type ii diabetes mellitus and PVD admitted with an abdominal wall cellulitis formed underneath her pannus. She failed outpateint therapy with antibiotics and ointment. She is not septic Abdominal wall cellulitis Morbid obesity Type II diabetes mellitus HTN Vitamin D deficiency PLAN: Admit inpatient for IV vancomycin and levofloxacin since she failed outpatient therapy Obtain a CT A/P to r/o abscess formation Consulted wound care services Start insulin sliding scale while in house Resume home regimen once reconciled
[2019-12-23] MEDS ORDERED: CLINDAMYCIN 900MG/D5W 900 MG/50 ML IVPB IV ONE (22:34)
[2019-12-23] MEDS ORDERED: VANCOMYCIN 1 GM/VIAL ONE (23:33)
[2019-12-23] MEDS ORDERED: NA CHLORIDE 0.9% 500 ML ONE (23:33)
[2019-12-24] MEDS ORDERED: Levofloxacin 750mg IV 750 MG/150 ML BAG IV SCH
[2019-12-24] MEDS ORDERED: D50W 25 GM/50 ML SYRINGE/VIAL IV PRN (00:09)
[2019-12-24] MEDS ORDERED: VANCOMYCIN 1.25 GM in NA CHLORIDE 0.9% 250 ML IVPB SCH (00:09)
[2019-12-24] MEDS ORDERED: GLUCAGON 1 MG/VIAL IM PRN (00:09)
[2019-12-24 00:33] VITALS: BMI 77.3
[2019-12-24] MEDS ORDERED: FUROSEMIDE 20 MG TABLET PO PRN (04:32)
[2019-12-24] MEDS ORDERED: LEVOTHYROXINE SOD 0.1 MG TAB PO SCH (06:30)
[2019-12-24] MEDS ORDERED: INSULIN -REGULAR HUMAN 50 UNIT/0.5 ML ML SQ SCH (07:30)
--- NOTE | 2019-12-24 07:41 | P.DS ---
Admission Date: 12/23/19 Discharge Date: 12/24/19 Primary Care Provider: Dr. Polanco Disposition: ROUTINE DISCHARGE Discharge Condition: GOOD Reason for Admission: abdominal wall cellulitis Consultations: Wound care consult Procedures: CT Scan: Cellulitis to the pannus noted. No significant abscess or a gas-forming abnormality noted. Medical Problem List: Cellulitis to the right lower quadrant pannus with noted ulcers Diabetes mellitus type 2 with hyperglycemia Hypertension Diabetic neuropathy Restless leg syndrome COPD Obstructive sleep apnea Chronic headaches Hypothyroidism Claudication Fibromyalgia Morbid obesity, BMI 77 Brief History of Present Illness: 64-year-old female with history of diabetes mellitus type 2, hypothyroidism, hypertension, and morbid obesity. Patient had noted some redness, weeping to the right lower quadrant of her pannus. Patient has large pannus due to her obesity. She had been treated with doxycycline 100 mg daily. She was establish care at the wound care center. She was instructed fire PCP to go to the hospital if this worsened. Patient was seen and evaluated in the emergency room. Patient admitted for observation. Hospital Course: Patient presented with cellulitis to the right lower quadrant pannus. Ulcers were noted to the area. Patient had been treated as an outpatient. The patient was evaluated in the emergency room. CT scan revealed cellulitis without abscess or gas-forming abnormality. White count slightly elevated. Pro calcitonin negative. Patient received IV antibiotic therapy. Wound care consultation was made. Patient showed improvement. No significant erythema noted. Patient with large pannus and edema. Due to her large pannus, it is recommended that she limit prolonged pressure to any particular area of the pannus. Recommend frequent movement of the pannus to prevent pressure ulcers. At discharge patient will continue with wound care as recommended by Wound care center. This includes Hydrea drill to the ulcers daily. The patient may continue with Levaquin 500 mg daily for 7 days. The patient will follow up at the wound care center for further treatment and monitoring this is at 12:15 p.m. Due to her edema of the patient will continue with a 1500 cc per day fluid restriction and low-salt diet. It is recommended that the patient continue with Lasix 20 mg daily and Aldactone 25 mg daily. She is to monitor her weight daily. If her weight increases by more than 5 lb she is to contact her PCP for further recommendation. Wound care instructions will be provided at discharge. Recommend consultation with bariatric surgery in the future to further address her morbid obesity and large pannus. Recommend follow up with her PCP to further monitor and address. Patient with diabetes mellitus type 2 with noted hyperglycemia. Hemoglobin A1c 7.9. Patient was recently taken off of 1 of her oral medication. At discharge patient may continue with Tresiba 60 units subcu twice daily and NovoLog 15 units 3 times a day. Patient will need strict control to help control her cellulitis. Recommend to maintain blood sugar less than 140 fasting and less than 200 after meals. Patient may need to increase her trustee but a by 1-2 units if blood sugars remain above 200. Further adjustment in medication can be done by her PCP. Strict control will be required. This can be done with the help of her PCP. Patient with hypertension. This has remained stable. At discharge she will continue with losartan 100 mg daily and Toprol-XL 50 mg daily. Recommend to maintain blood pressure less than 130/80. Further adjustment can be done by her PCP. Patient with COPD and obstructive sleep apnea. At discharge she will continue with Breo 1 puff daily. Patient will continue with CPAP at night. Recommend follow up with pulmonology to further monitor and address. Patient with diabetic neuropathy. At discharge she may continue with Lyrica 150 mg 1 pill 3 times a day. Patient with restless leg syndrome. At discharge she may continue with Requip 0.25 mg at bedtime. Patient with hypothyroidism. At discharge she may continue with Synthroid 200 mg daily. Patient with chronic headaches. At discharge she will continue with Topamax 50 mg twice daily. Patient with fibromyalgia. At discharge she may continue with Savella 100 mg 1 pill twice daily. further adjustment can be done by her PCP. Patient with claudication. At discharge she may continue with Trental 400 mg daily. Vital Signs/Physical Exam: Temp Pulse Resp BP Pulse Ox 97.5 F 82 16 111/65 98 12/24/19 04:00 12/24/19 04:00 12/24/19 04:00 12/24/19 04:00 12/24/19 04:00 General: Alert, In no apparent distress, Oriented x3, Cooperative HEENT: Atraumatic Neck: Supple Respiratory: Clear to auscultation bilaterally, Normal air movement Cardiovascular: Normal pulses, Regular rate/rhythm Gastrointestinal: Normal bowel sounds, Soft and benign, Non-distended, No masses, No rebound, No guarding Integumentary: Other (Patient with large pannus with morbid obesity. No significant erythema. Some edema noted to the pannus due to dependent edema. Some dried ulcers noted to the right lower quadrant of the pannus. No significant exudate noted.) Neurological: Normal speech, Normal strength at 5/5 x4 extr, Normal tone, Normal affect Laboratory Data at Discharge: WBC 11.0 K/uL (4.3-10.9) H 12/23/19 20:50 Hgb 12.1 g/dL (12.0-15.0) 12/23/19 20:50 Hct 36.3 % (36.0-45.0) 12/23/19 20:50 Plt Count 189 K/uL (152-406) 12/23/19 20:50 PT 11.3 SECONDS (9.5-12.5) 12/23/19 20:50 INR 0.96 12/23/19 20:50 Sodium 142 mmol/L (136-145) 12/23/19 20:50 Potassium 4.3 mmol/L (3.5-5.1) 12/23/19 20:50 BUN 26 mg/dL (7-18) H 12/23/19 20:50 Creatinine 0.91 mg/dL (0.55-1.3) 12/23/19 20:50 Glucose 138 mg/dL (74-106) H 12/23/19 20:50 Magnesium 1.9 mg/dL (1.8-2.4) 12/23/19 20:50 Total Bilirubin 0.2 mg/dL (0.2-1.0) 12/23/19 20:50 AST 13 U/L (15-37) L 12/23/19 20:50 ALT 40 U/L (12-78) 12/23/19 20:50 Alkaline Phosphatase 100 U/L (45-117) 12/23/19 20:50 Triglycerides 73 mg/dL (<150) 12/24/19 04:55 Cholesterol 184 mg/dL (<200) 12/24/19 04:55 HDL Cholesterol 62 mg/dL (40-60) H 12/24/19 04:55 Cholesterol/HDL Ratio 2.97 12/24/19 04:55 Home Medications: Levothyroxine Sodium [Synthroid] 200 mcg PO 0630 03/17/17 Losartan Potassium 100 mg PO BEDTIME 03/17/17 Metoprolol Succinate 50 mg PO DAILY 03/17/17 Milnacipran HCl [Savella] 100 mg PO BID 03/17/17 Pentoxifylline 400 mg PO DAILY 03/17/17 Pregabalin [Lyrica] 150 mg PO TID 03/17/17 Topiramate [Topamax*] 50 mg PO BID #20 tab 03/19/17 Ondansetron HCl [Zofran] 4 mg PO TID PRN #20 tablet 07/07/17 Cholecalciferol (Vitamin D3) [Vitamin D3] 2,000 unit PO BID 09/22/17 Artriking 1 tab PO BEDTIME 12/24/19 Artriking 2 tab PO DAILY 12/24/19 Fluticasone/Vilanterol [Breo Ellipta 200-25 Mcg INH] 1 puff IH DAILY 12/24/19 Furosemide [Lasix*] 20 mg PO DAILY #30 tab 12/24/19 Insulin Aspart [Novolog Flexpen] 15 units SQ TIDWM PRN 12/24/19 Insulin Degludec [Tresiba Flextouch U-200] 60 units SQ BIDWM 12/24/19 Ropinirole HCl [Requip*] 0.25 mg PO BEDTIME 12/24/19 Spironolactone [Aldactone*] 25 mg PO DAILY 12/24/19 levoFLOXacin [Levaquin*] 500 mg PO DAILY #7 tab 12/24/19 New Medications: Furosemide [Lasix*] 20 mg PO DAILY #30 tab levoFLOXacin [Levaquin*] 500 mg PO DAILY #7 tab Patient Discharge Instructions: 1. Recommend follow up with PCP in 1 week to follow up this hospitalization. Patient will also need follow up at the wound care clinic. 2. Patient presented with cellulitis to the right lower quadrant pannus. Ulcers were noted to the area. Patient had been treated as an outpatient. The patient was evaluated in the emergency room. CT scan revealed cellulitis without abscess or gas-forming abnormality. White count slightly elevated. Pro calcitonin negative. Patient received IV antibiotic therapy. Wound care consultation was made. Patient showed improvement. No significant erythema noted. Patient with large pannus and edema. Due to her large pannus, it is recommended that she limit prolonged pressure to any particular area of the pannus. Recommend frequent movement of the pannus to prevent pressure ulcers. At discharge patient will continue with wound care as recommended by Wound care center. This includes Hydrea drill to the ulcers daily. The patient may continue with Levaquin 500 mg daily for 7 days. The patient will follow up at the wound care center for further treatment and monitoring this is at 12:15 p.m. Due to her edema of the patient will continue with a 1500 cc per day fluid restriction and low-salt diet. It is recommended that the patient continue with Lasix 20 mg daily and Aldactone 25 mg daily. She is to monitor her weight daily. If her weight increases by more than 5 lb she is to contact her PCP for further recommendation. Wound care instructions will be provided at discharge. Recommend consultation with bariatric surgery in the future to further address her morbid obesity and large pannus. Recommend follow up with her PCP to further monitor and address. 3. Patient with diabetes mellitus type 2 with noted hyperglycemia. Hemoglobin A1c 7.9. Patient was recently taken off of 1 of her oral medication. At discharge patient may continue with Tresiba 60 units subcu twice daily and NovoLog 15 units 3 times a day. Patient will need strict control to help control her cellulitis. Recommend to maintain blood sugar less than 140 fasting and less than 200 after meals. Patient may need to increase her trustee but a by 1-2 units if blood sugars remain above 200. Further adjustment in medication can be done by her PCP. Strict control will be required. This can be done with the help of her PCP. 4. Patient with hypertension. This has remained stable. At discharge she will continue with losartan 100 mg daily and Toprol-XL 50 mg daily. Recommend to maintain blood pressure less than 130/80. Further adjustment can be done by her PCP. 5. Patient with COPD and obstructive sleep apnea. At discharge she will continue with Breo 1 puff daily. Patient will continue with CPAP at night. Recommend follow up with pulmonology to further monitor and address. 6. Patient with diabetic neuropathy. At discharge she may continue with Lyrica 150 mg 1 pill 3 times a day. 7. Patient with restless leg syndrome. At discharge she may continue with Requip 0.25 mg at bedtime. 8. Patient with hypothyroidism. At discharge she may continue with Synthroid 200 mg daily. 9. Patient with chronic headaches. At discharge she will continue with Topamax 50 mg twice daily. 10. Patient with fibromyalgia. At discharge she may continue with Savella 100 mg 1 pill twice daily. further adjustment can be done by her PCP. 11. Patient with claudication. At discharge she may continue with Trental 400 mg daily. Diet: ADA Activity: Ad ashley Followup: Chye Polanco DO [Primary Care Provider] - Time spent managing pt's care (in minutes): 55
[2019-12-24] MEDS ORDERED: HOME MED 1 EA UNK (Insulin Degludec [Tresiba Flextouch U-200] 60 UNITS) SQ SCH (08:00)
[2019-12-24 08:33] VITALS: BP 136/63
[2019-12-24 08:53] VITALS: TEMP 97
[2019-12-24] MEDS ORDERED: AMLODIPINE 5 MG TAB PO SCH (09:00)
[2019-12-24] MEDS ORDERED: PANTOPRAZOLE 40MG TABLET PO SCH (09:00)
[2019-12-24] MEDS ORDERED: TOPIRAMATE 25 MG TAB PO SCH (09:00)
[2019-12-24] MEDS ORDERED: HOME MED 1 EA UNK (Losartan Potassium [Losartan Potassium] 100 MG) PO SCH (09:00)
[2019-12-24] MEDS ORDERED: FUROSEMIDE 20 MG TABLET PO SCH (09:00)
[2019-12-24] MEDS ORDERED: HOME MED 1 EA UNK (Fluticasone/Vilanterol [Breo Ellipta 200-25 Mcg Inh] 1 PUFF) IH SCH (09:00)
[2019-12-24] MEDS ORDERED: levoFLOXacin 500 MG TAB PO SCH (09:00)
[2019-12-24] MEDS ORDERED: PENTOXIFYLLINE ER 400 MG TAB PO SCH (09:00)
[2019-12-24] MEDS ORDERED: PREGABALIN 150 MG CAP PO SCH (09:00)
[2019-12-24] MEDS ORDERED: SPIRONOLACTONE 25 MG TABLET PO SCH (09:00)
[2019-12-24] MEDS ORDERED: MILNACIPRAN HCL 100 MG PO SCH (09:00)
[2019-12-24 09:12] VITALS: O2SAT 95
--- NOTE | 2019-12-24 10:56 | RAD REPORT ---
EXAM DESCRIPTION: CT Abdomen Pelvis W Contrast CLINICAL HISTORY: 64 years Female cellulitis of pannus TECHNIQUE: Contiguous axial images obtained through the abdomen and pelvis following intravenous con trast administration. Coronal and sagittal reformatted images provided. This CT exam was performed according to our departmental dose-optimization program, which includes on e or more of the following dose reduction techniques: automated exposure control, adjustment of the m A and/or kV according to patient size, and/or use of iterative reconstruction technique. COMPARISON: No prior exams provided for comparison. FINDINGS: Patient is obese. There is severe diffuse cellulitis involving the infraumbilical pannus d iffuse skin thickening and infiltration of the subcutaneous fat. There is no visualized soft tissue g as, foreign body, or loculated fluid collection. The lateral margins of the pannus are excluded from the exam. There is a fat-containing umbilical hernia which does not appear inflamed. The gallbladder is distended and contains multiple gallstones, however does not appear inflamed. No b iliary dilatation. The lung bases, liver, pancreas, spleen, adrenal glands, kidneys, uterus, ovaries, and urinary bladde r are normal. There is no bowel inflammation, obstruction, free intraperitoneal air, or ascites. The appendix is no rmal. No acute osseous abnormality. IMPRESSION: Severe cellulitis of the patient's pannus without visualized soft tissue gas or abscess. Fat-containing umbilical hernia does not appear inflamed. Cholelithiasis. Electronically signed by: Asya Valentine MD 12/23/2019 11:28 PM [employer] Due to temporary technical issues with the PACS/Fluency reporting system, reports are being signed by the in house radiologist without review as a courtesy to ensure prompt reporting. The interpreting r adiologist is fully responsible for the content of the report.
--- NOTE | 2019-12-24 18:05 | EKG ---
Test Date: 2019-12-23 Test Time: 21:02:48 Gas Systems Worker: YECENIA MEASUREMENT RESULTS: Intervals: Rate: 76 IL: 156 QRSD: 80 QT: 402 QTc: 452 Ismay: P: 47 IL: 156 QRS: 0 T: 55 INTERPRETIVE STATEMENTS: Normal sinus rhythm Normal ECG Compared to ECG 07/06/2017 09:30:13 No significant changes Electronically Signed On 12-24-19 18:02:44 INFORMATION SYSTEMS SECURITY MANAGER by Edilberto Hernandez
[2019-12-24] MEDS ORDERED: LOSARTAN POTASSIUM 50 MG TABLET PO SCH (21:00)
[2019-12-24] MEDS ORDERED: DOXAZOSIN 1 MG TAB PO SCH (21:00)
[2019-12-24] MEDS ORDERED: METOPROLOL XL 50 MG TAB PO SCH (21:00)
[2019-12-24] MEDS ORDERED: ROPINIROLE HCL 0.25 MG TAB PO SCH (21:00)
== END 2019-12-24 11:44 | disposition home health service (06) ==
LOC: ER 17:17 → ERHOLD 21:38 → INTOOBSV 21:38 → 2ND 23:45
PROVIDERS: ADMIT Internal Medicine; ATTEND Family Medicine
DX: L03.311 Cellulitis of abdominal wall (principal); K42.9 Umbilical hernia without obstruction or gangrene; K80.20 Calculus of gallbladder without cholecystitis without obstruction; E11.65 Type 2 diabetes mellitus with hyperglycemia; E11.40 Type 2 diabetes mellitus with diabetic neuropathy, unspecified; E66.01 Morbid (severe) obesity due to excess calories; Z20.828 Contact with and (suspected) exposure to other viral communicable diseases; Z68.45 Body mass index [BMI] 70 or greater, adult; L98.499 Non-pressure chronic ulcer of skin of other sites with unspecified severity; I10 Essential (primary) hypertension; G25.81 Restless legs syndrome; J44.9 Chronic obstructive pulmonary disease, unspecified; G47.33 Obstructive sleep apnea (adult) (pediatric); E03.9 Hypothyroidism, unspecified; M79.7 Fibromyalgia; I73.9 Peripheral vascular disease, unspecified; R51.9 Headache, unspecified; G89.29 Other chronic pain; Z79.4 Long term (current) use of insulin; E55.9 Vitamin D deficiency, unspecified
CPT/HCPCS: 36415; 71045; 74177; 80048; 80061; 80076; 80202; 82947; 83036; 83605; 83735; 83880; 84145; 84484; 85025; 85610; 87040; 87070; 87077; 87186; 87205; 93005; 93970; 96365; 96367; 99251; 99285; G0378; J3370; J7040; Q9967; U0002

== ENCOUNTER 2020-03-08 14:46 | Emergency (ER) | payer OTHER ==
--- OUTSIDE RECORDS SUMMARY | 2020-03-08 14:49 | XMS REPORT | Continuity of Care Document ---
:1955 Author Organization [facility] t Address [address] [place] [address] [address]. [address] [place] [address] Care Team Providers Name Role Phone Carlin BROWN Attending Clinician Doctor Unassigned, Name Attending Clinician Unavailable Problems This patient has no known problems. Allergies, Adverse Reactions, Alerts This patient has no known allergies or adverse reactions. Medications This patient has no known medications. Procedures This patient has no known procedures. Encounters Start End Encounter Admission Attending Care Care Encounter Source Date/Time Date/Time Type Type Clinicians Facility Department ID 2020-02-20 2020-02-20 Outpatient [facility] [id number] [facility] 00:00:00 00[facility]00:00 [facility] 2020-02-20 2020-02-20 Telephone EJ Gillis [id number] [facility]:00[facility]00 [facility] [id number] [place] [id number] Laurent [id number] [address] 2020-02-05 2020-02-05 Outpatient [facility] [id number] [facility] 00:00:00 [facility]00:00 [facility] 2020-02-03 2020-02-03 Outpatient [facility] [id number] [facility] 00:00:00 00:00:00 [facility] 2020-02-03 2020-02-03 Outpatient [facility] [id number] [facility] 2020-02-02 2020-02-02 Out[facility] [id number] [facility] 2020-01-28 2020-01-28 [facility] [id number] 2020-01-27 2020-01-27 [facility] [id number] [facility] 2020-01-23 2020-01-23 [facility] [id number] [facility] 2020-01-22 2020-01-22 Orders Doctor VIRIDIANA [id number] 00:00:00 00:00:00 Only Unassigned, IVA [id number] [place] [id number] 2020-01-20 2020-01-20 Office Gillis, [facility] [id number] 13:47:46 15:12:23 [facility] [id number] [place] [id number] Professsadiq [id number] [address] 2020-01-12 2020-01-12 [facility] [id number] 2020-01-06 2020-01-06 [facility] [id number] 2020-01-02 2020-01-02 [facility] [id number] [facility] 2019-12-26 2019-12-26 [facility] [id number] [facility] 2019-12-22 2019-12-22 Outpatient [facility] [id number] [facility] 00:00:00 00:00:00 [facility] Results This patient has no known results.
[2020-03-08 18:04] LABS: Absolute Lymphocytes (CBC) 0.8 K/uL (0.7-4.9); Basophils % 0.7 % (0-1.3); Hematocrit 37.9 % (36.0-45.0); MPV 8.8 fL (7.6-11.3); RBC Red Blood Cell Count 4.05 M/uL (3.86-4.86)
[2020-03-08] MEDS ORDERED: ONDANSETRON 4 MG/2 ML VIAL ONE (18:06)
[2020-03-08] MEDS ORDERED: FENTANYL CITR 100 MCG/2 ML ONE (18:06)
[2020-03-08] MEDS ORDERED: FUROSEMIDE 40 MG/4 ML VIAL ONE ×2 (18:07→20:57)
[2020-03-08 18:14] LABS: Protime INR 0.95
[2020-03-08 18:24] LABS: ALT/SGPT 43 U/L (12-78); AST/SGOT 11 U/L (15-37); Albumin 2.9 g/dL (3.4-5.0); Alkaline Phosphatase 98 U/L (45-117); BUN Blood Urea Nitrogen 30 mg/dL (7-18); Bicarbonate 27 mmol/L (21-32); Bilirubin Direct 0.1 mg/dL (0-0.2); Bilirubin Total 0.4 mg/dL (0.2-1.0); Glucose Level 159 mg/dL (74-106); Magnesium 2.2 mg/dL (1.8-2.4); NT PRO-BNP 61 pg/mL (<125); Potassium 4.2 mmol/L (3.5-5.1); Protein, Total 6.5 g/dL (6.4-8.2); Sodium Level 146 mmol/L (136-145); Troponin (Emerg Dept Use Only) < 0.02 ng/mL (0.0-0.045)
--- NOTE | 2020-03-08 19:05 | RAD REPORT ---
EXAM DESCRIPTION: RAD - Chest Single View - 03/08/2020 5:30 pm CLINICAL HISTORY: Dyspnea;Swelling COMPARISON: December 2019 TECHNIQUE: AP portable chest image was obtained 03/08/2020 5:30 pm . FINDINGS: Lung volumes are low. Interstitial pattern matches comparison. Large body habitus limits e valuation. Heart and vasculature are normal. No measurable pleural effusion and no pneumothorax. No a cute bony abnormality seen. No acute aortic findings suspected. IMPRESSION: Limited portable study without acute cardiopulmonary finding.
--- NOTE | 2020-03-08 20:18 | RAD REPORT ---
EXAM DESCRIPTION: CT - Abdomen Pelvis W Contrast - 03/08/2020 7:43 pm CLINICAL HISTORY: SWELLING, abdominal pain, hypertension, diabetes COMPARISON: CT examination December 2019 TECHNIQUE: Biphasic, helical CT imaging of the abdomen and pelvis was performed following 100 ml non -ionic IV contrast. No oral contrast administered. All CT scans are performed using dose optimization technique as appropriate and may include automated exposure control or mA/KV adjustment according to patient size. FINDINGS: No suspicious findings in the lung bases. The liver, spleen, and pancreas show no suspicious findings. Multi stone cholelithiasis is evident as previously diagnosed. No active gallbladder or biliary tree finding suspected. Symmetric renal function is seen with no hydronephrosis or suspicious renal mass. No pyelonephritis o r acute parenchymal process. No bladder abnormalities. No adrenal abnormalities. Uterus and ovaries s how no suspicious findings. No dilated bowel loops or bowel wall thickening. No free air, free fluid, pneumatosis or inflammator y stranding within the peritoneal cavity. No mass or bulky lymphadenopathy. Small fat only umbilical hernia shows no congestion or edema. Patient has prominent congestion or edematous findings of the large pannus overlying the pelvis and u pper thighs. No abscess or air within the soft tissues. No suspicious bony findings. IMPRESSION: Cellulitis changes to the pannus similar to December 2019. There is no air in the soft t issues and no abscess or drainable fluid collection.
[2020-03-08 20:32] LABS: Blood Morphology Comment NOT SEEN (NOT SEEN); Platelet Estimate ADEQ; White Blood Cell Scan OK (OK)
--- NOTE | 2020-03-08 20:35 | EDPHYS ---
Physician Documentation [facility] Name: Kathia Phipps Age: 64 yrs Sex: Female : 1955 Arrival Date: 03/08/2020 Time: 14:50 Bed 26 Private MD: ED Physician Devin Morgan HPI: 03/08 20:12 This 64 yrs old Female presents to ER via Wheelchair with complaints of Feet kb Swelling, Shortness Of Breath. 20:12 The patient has not experienced similar symptoms in the past. The patient has not kb recently seen a physician. Pt reports she has been retaining fluid in pannus and lower extremities for 2 months and it has progressively gotten worse. States her pannus has become heavy so it causes shortness of breath when she walks around. Has been taking 20mg lasix for the past two months. . 20:13 The patient has shortness of breath with light activity. Onset: The symptoms/episode kb began/occurred 2 month(s) ago. Duration: The symptoms are continuous. The patient's shortness of breath is aggravated by exertion, is alleviated by rest. Associated signs and symptoms: Pertinent positives: edema. Severity of symptoms: At their worst the symptoms were moderate in the emergency department the symptoms are unchanged. Historical: - Allergies: 15:04 Farmiga; tw2 15:04 Januvia; tw2 15:04 Latex, Natural Rubber; tw2 15:04 Morphine; tw2 15:04 PENICILLINS; tw2 15:04 sitagliptin; tw2 - PMHx: 15:04 chronic fatigue; Fibromyalgia; GERD; Hypertension; Diabetes - IDDM; dyslipidemia; tw2 vitamin d deficiency; Hypothyroidism; Sleep Apnea; Vitiligo; - PSHx: 15:04 Tubal ligation; tw2 - Immunization history:: Adult Immunizations. - Social history:: Smoking status: . ROS: 20:09 Constitutional: Negative for fever, chills, and weight loss, Cardiovascular: Negative kb for chest pain, palpitations. +edema to bilateral lower extremities and pannus Abdomen/GI: Negative for abdominal pain, nausea, vomiting, diarrhea, and constipation, Back: Negative for injury and pain, Neuro: Negative for headache, weakness, numbness, tingling, and seizure. 20:09 Respiratory: Positive for dyspnea on exertion. 20:09 Skin: Positive for open wounds to pannus. Exam: 20:10 Constitutional: This is a well developed, well nourished patient who is awake, alert, kb and in no acute distress. Head/Face: Normocephalic, atraumatic. Chest/axilla: Normal chest wall appearance and motion. Nontender with no deformity. No lesions are appreciated. Cardiovascular: Regular rate and rhythm with a normal S1 and S2. No gallops, murmurs, or rubs. Normal PMI, no JVD. No pulse deficits. Respiratory: Lungs have equal breath sounds bilaterally, clear to auscultation and percussion. No rales, rhonchi or wheezes noted. No increased work of breathing, no retractions or nasal flaring. Abdomen/GI: Soft, non-tender, with normal bowel sounds. No distension or tympany. No guarding or rebound. No evidence of tenderness throughout. Neuro: Awake and alert, GCS 15, oriented to person, place, time, and situation. Cranial nerves II-XII grossly intact. Motor strength 5/5 in all extremities. Sensory grossly intact. Cerebellar exam normal. Normal gait. 20:10 Cardiovascular: Edema: 2+ edema to level of lower extremities, 2+ to pannus. 20:10 Skin: superficial open wounds to pannus on right side, no signs of infection noted. Vital Signs: 15:01 BP 129 / 78; Pulse 74; Resp 17; Temp 97.9(TE); Pulse Ox 99% on R/A; Weight 176.9 kg tw2 (R); Height 5 ft. 2 in. (157.48 cm); Pain 9/10; 20:08 BP 132 / 87; Pulse 86; Resp 18; Pulse Ox 97% on R/A; iw 15:01 Body Mass Index 71.33 (176.90 kg, 157.48 cm) tw2 MDM: 17:28 Patient medically screened. kb 20:12 Data reviewed: vital signs, nurses notes. Data interpreted: Pulse oximetry: on room air kb is 97 %. Interpretation: normal. 20:30 Counseling: I had a detailed discussion with the patient and/or guardian regarding: the kb historical points, exam findings, and any diagnostic results supporting the discharge/admit diagnosis, lab results, radiology results, the need for outpatient follow up, a family practitioner, to return to the emergency department if symptoms worsen or persist or if there are any questions or concerns that arise at home. ED course: Discussed findings with pt and that there is not an indication for admission at this time. CT shows similar findings to November scan. Pt has appt with PCP in 2 days. Will double lasix to 40mg daily until appt. 03/08 17:45 Order name: Basic Metabolic Panel; Complete Time: 18:33 kb 03/08 17:45 Order name: CBC with Diff; Complete Time: 20:35 kb 03/08 17:45 Order name: LFT's; Complete Time: 18:33 kb 03/08 17:45 Order name: Magnesium; Complete Time: 18:33 kb 03/08 17:45 Order name: NT PRO-BNP; Complete Time: 18:33 kb 03/08 17:45 Order name: PT-INR; Complete Time: 18:20 kb 03/08 16:51 Order name: Chest Single View XRAY; Complete Time: 19:11 kb 03/08 17:45 Order name: Troponin (emerg Dept Use Only); Complete Time: 18:33 kb 03/08 18:59 Order name: CT Abd/Pelvis - IV Contrast Only; Complete Time: 20:21 kb 03/08 20:31 Order name: CBC Smear Scan; Complete Time: 20:35 EDMS 03/08 17:45 Order name: EKG; Complete Time: 17:46 kb 03/08 17:45 Order name: Cardiac monitoring; Complete Time: 18:06 kb 03/08 17:45 Order name: EKG - Nurse/Tech; Complete Time: 18:06 kb 03/08 17:45 Order name: IV Saline Lock; Complete Time: 18:06 kb 03/08 17:45 Order name: Labs collected and sent; Complete Time: 18:06 kb 03/08 17:45 Order name: O2 Per Protocol; Complete Time: 18:06 kb 03/08 17:45 Order name: O2 Sat Monitoring; Complete Time: 18:06 kb Administered Medications: 18:23 Drug: Lasix 40 mg Route: IVP; Site: left antecubital; iw 18:23 Drug: fentaNYL (PF) 50 mcg Route: IVP; Site: left antecubital; iw 18:23 Drug: Zofran (Ondansetron) 4 mg Route: IVP; Site: left antecubital; iw 20:47 Drug: Lasix 40 mg Route: IVP; Site: left antecubital; iw Disposition: 03/08/20 20:35 Discharged to Home. Impression: Edema, unspecified. - Condition is Stable. - Discharge Instructions: Edema, Wjms-on-Xlle. - Medication Reconciliation Form, Thank You Letter, Antibiotic Education, Prescription Opioid Use form. - Follow up: Private Physician; When: 2 - 3 days; Reason: Recheck today's complaints, Continuance of care, Re-evaluation by your physician. Follow up: Emergency Department; When: As needed; Reason: Worsening of condition. Addendum: 03/10/2020 23:11 Co-signature as Attending Physician, Devin Morgan MD. r n Signatures: Dispatcher [employer] EDMS Norah Bonilla, STRIKER OUT-C STRIKER OUT-Ckb Tita Mancilla, RN RN iw Devin Morgan MD MD rn Wise, Tara RN RN tw2 Corrections: (The following items were deleted from the chart) 03/08 21:02 20:35 03/08/2020 20:35 Discharged to Home. Impression: Edema, unspecified. Condition is iw Stable. Forms are Medication Reconciliation Form, Thank You Letter, Antibiotic Education, Prescription Opioid Use. Follow up: Private Physician; When: 2 - 3 days; Reason: Recheck today's complaints, Continuance of care, Re-evaluation by your physician. Follow up: Emergency Department; When: As needed; Reason: Worsening of condition. kb
--- NOTE | 2020-03-08 20:35 | ER ---
Nurse's Notes [facility] Name: Kathia Phipps Age: 64 yrs Sex: Female : 1955 Arrival Date: 03/08/2020 Time: 14:50 Bed 26 Private MD: Diagnosis: Edema, unspecified Presentation: 03/08 15:01 Chief complaint: Patient states: my feet have been very swollen for the passed 2 weeks, tw2 i have [facility], i dont know if that is causing my feet to be swollen, i dont know if it is the medicine, i dont know what to do,i feel like i am retaining fluid and i can breath and its not helping. Coronavirus screen: At this time, the client does not indicate any symptoms associated with coronavirus-19. Coronavirus screen:. Ebola Screen: Patient denies travel to an Ebola-affected area in the 21 days before illness onset. Initial Sepsis Screen: Does the patient meet any 2 criteria? No. Patient's initial sepsis screen is negative. Does the patient have a suspected source of infection? No. Patient's initial sepsis screen is negative. Risk Assessment: Do you want to hurt yourself or someone else? Patient reports no desire to harm self or others. Onset of symptoms was March 08, 2020. 15:01 Method Of Arrival: Wheelchair tw2 15:01 Acuity: ISSAC 3 tw2 Triage Assessment: 15:05 General: Appears in no apparent distress. obese, Behavior is calm, cooperative, tw2 appropriate for age. Pain: Complains of pain in right foot, left foot and left leg. Respiratory: Reports shortness of breath Onset: The symptoms/episode began/occurred 2 weeks now, the patient has mild shortness of breath. Historical: - Allergies: 15:04 Farmiga; tw2 15:04 Januvia; tw2 15:04 Latex, Natural Rubber; tw2 15:04 Morphine; tw2 15:04 PENICILLINS; tw2 15:04 sitagliptin; tw2 - PMHx: 15:04 chronic fatigue; Fibromyalgia; GERD; Hypertension; Diabetes - IDDM; dyslipidemia; tw2 vitamin d deficiency; Hypothyroidism; Sleep Apnea; Vitiligo; - PSHx: 15:04 Tubal ligation; tw2 - Immunization history:: Adult Immunizations. - Social history:: Smoking status: . Screenin:19 Abuse screen: Denies threats or abuse. Denies injuries from another. Nutritional iw screening: No deficits noted. Tuberculosis screening: No symptoms or risk factors identified. Fall Risk IV access (20 points). Assessment: 17:45 General: Appears in no apparent distress. Behavior is calm, cooperative. Pain: iw Complains of pain in left leg and left foot and right foot. Neuro: Level of Consciousness is awake, alert, obeys commands, Oriented to person, place, time, situation, Moves all extremities. Cardiovascular: Reports shortness of breath, Denies chest pain, Rhythm is regular. Respiratory: Airway is patent Respiratory effort is even, unlabored, Breath sounds are clear bilaterally. Musculoskeletal: Range of motion: intact in all extremities. 19:11 Reassessment: Patient appears in no apparent distress at this time. Patient and/or iw family updated on plan of care and expected duration. Pain level reassessed. Patient is alert, oriented x 3, equal unlabored respirations, skin warm/dry/pink. pt able to get herself back into bed with no assistance. 20:08 Reassessment: Patient appears in no apparent distress at this time. Patient and/or iw family updated on plan of care and expected duration. Pain level reassessed. Patient is alert, oriented x 3, equal unlabored respirations, skin warm/dry/pink. Vital Signs: 15:01 BP 129 / 78; Pulse 74; Resp 17; Temp 97.9(TE); Pulse Ox 99% on R/A; Weight 176.9 kg tw2 (R); Height 5 ft. 2 in. (157.48 cm); Pain 9/10; 20:08 BP 132 / 87; Pulse 86; Resp 18; Pulse Ox 97% on R/A; iw 15:01 Body Mass Index 71.33 (176.90 kg, 157.48 cm) tw2 ED Course: 14:50 Patient arrived in ED. ds1 15:04 Triage completed. tw2 15:05 Arm band placed on. tw2 17:28 Norah Bonilla FNP-C [facility]. kb 17:28 Devin Morgan MD is Attending Physician. kb 17:31 Chest Single View XRAY In Process Unspecified. EDMS 17:46 Tita Mancilla, NICOLE is Primary Nurse. iw 17:56 Initial lab(s) drawn, by me, held in ED. Inserted saline lock: 20 gauge in left jp3 antecubital area, using aseptic technique. Blood collected. 18:06 Bed in low position. Call light in reach. Side rails up X2. Warm blanket given. Pillow jp3 given. Verbal reassurance given. monitor tech on. Pulse ox on. NIBP on. 18:06 EKG done, by ED staff, reviewed by Norah HOBBS. Patient maintains SpO2 jp3 saturation greater than 95% on room air. 19:45 CT Abd/Pelvis - IV Contrast Only In Process Unspecified. EDMS 21:01 No provider procedures requiring assistance completed. IV discontinued, intact, iw bleeding controlled, No redness/swelling at site. Pressure dressing applied. Administered Medications: 18:23 Drug: Lasix 40 mg Route: IVP; Site: left antecubital; iw 18:23 Drug: fentaNYL (PF) 50 mcg Route: IVP; Site: left antecubital; iw 18:23 Drug: Zofran (Ondansetron) 4 mg Route: IVP; Site: left antecubital; iw 20:47 Drug: Lasix 40 mg Route: IVP; Site: left antecubital; iw Outcome: 20:35 Discharge ordered by . kb 21:01 Discharged to home via wheelchair, with family. iw 21:01 Condition: good 21:01 Discharge instructions given to patient, Instructed on discharge instructions, follow up and referral plans. Demonstrated understanding of instructions, follow-up care. 21:02 Patient left the ED. iw Signatures: Dispatcher [employer] EDME Norah Bonilla FNP-C FNP-Ckb Sanford, Demi ds1 Tita Mancilla, RN RN iw Kandi Aleman, RN RN tw2 Dylon Mcginnis jp3
[2020-03-08 21:07] VITALS: TEMP 97.9
[2020-03-08 21:09] VITALS: BP 132/87; O2SAT 97
--- NOTE | 2020-03-10 06:32 | EKG ---
Test Date: 2020-03-08 Test Time: 18:11:59 Complex Care Nurse Practitioner: ALINE MEASUREMENT RESULTS: Intervals: Rate: 78 PA: 160 QRSD: 72 QT: 388 QTc: 442 [place]: P: 61 PA: 160 QRS: 17 T: 54 INTERPRETIVE STATEMENTS: Normal sinus rhythm Low voltage QRS Borderline ECG Compared to ECG 12/23/2019 21:02:48 Low QRS voltage now present Electronically Signed On 03-10-20 06:27:33 MASK INSPECTOR by Edilberto Hernandez
== END 2020-03-08 21:02 | disposition home or self-care (01) ==
LOC: ER 14:46
DX: R22.43 Localized swelling, mass and lump, lower limb, bilateral (principal); R06.02 Shortness of breath; E03.9 Hypothyroidism, unspecified; G47.30 Sleep apnea, unspecified; L80 Vitiligo; E55.9 Vitamin D deficiency, unspecified; M79.7 Fibromyalgia; K21.9 Gastro-esophageal reflux disease without esophagitis; I10 Essential (primary) hypertension; E11.9 Type 2 diabetes mellitus without complications; Z79.4 Long term (current) use of insulin; E78.5 Hyperlipidemia, unspecified; R53.82 Chronic fatigue, unspecified
CPT/HCPCS: 93005; 85025; 80048; 36415; 83735; 85610; 80076; 84484; 83880; 74177; 71045; 96375; 96374; 99285; Q9967; J1940 ×2; J3010; J2405

== ENCOUNTER 2020-03-11 13:56 | Inpatient (IN) | payer OTHER ==
--- OUTSIDE RECORDS SUMMARY | 2020-03-11 13:59 | XMS REPORT | Continuity of Care Document ---
:1955 Author Organization [facility] t Address [address] [place] [address] Dr. [address] [place] [address] Care Team Providers Name Role Phone Carlin [...] Date/Time Type Type Clinicians Facility Department ID 2020-03-10 2020-03-10 Outpatient [facility] [id number] [facility] 00:00:00 00[facility]00[facility]00 [facility] 2020-02-20 2020-02-20 Telephone EJ Gillis [id number] [facility]:00:00 [facility] [id number] [place] [id number] Laurent [phone] [address] 2020-02-20 2020-02-20 Outpatient [facility] [id number] [facility] St 00:00:00 00:00:00 [facility] 2020-02-05 2020-02-05 Outpatient [facility] [id number] [facility] St 00:00:00 00[facility]00:00 [facility] 2020-02-03 2020-02-03 [facility] [id number] [facility] 2020-02-03 2020-02-03 [facility] [id number] [facility] 2020-02-02 2020-02-02 [facility] [id number] [facility] 2020-01-28 2020-01-28 [facility] [id number] [facility] 2020-01-27 2020-01-27 [facility] [id number] [facility] 2020-01-23 2020-01-23 [facility] [id number] 2020-01-22 2020-01-22 Orders Doctor VIRIDIANA [id number] 00:00:00 00:00:00 Only Unassigned, IVA [id number] [facility] [id number] 2020-01-20 2020-01-20 Office Gillis, [facility] [id number] 13:47:46 15:12:23 [facility] [id number] [place] [id number] [facility] [address] [facility] 2020-01-12 2020-01-12 [facility] [id number] [facility] 2020-01-06 2020-01-06 [facility] [id number] [facility] 2020-01-02 2020-01-02 Out[facility] [id number] [facility]00 [facility] 2019-12-26 2019-12-26 Outpatient [facility] [id number] [facility] 00:00:00 00:00:00 [facility] 2019-12-22 2019-12-22 Outpatient [facility] [id number] [facility] St 00:00:00 00:00:00 [facility] Results This patient has no known results.
[2020-03-11] MEDS ORDERED: MORPHINE 4 MG/ML SYR IV PRN (16:56)
[2020-03-11] MEDS ORDERED: Meropenem 500 MG VIAL IV SCH (17:00)
[2020-03-11] MEDS ORDERED: VANCOMYCIN/NS 1 gm 1 GM/250 ML BAG IVPB SCH (17:00)
--- NOTE | 2020-03-11 17:49 | ER ---
Nurse's Notes [facility] Name: Kathia Phipps Age: 64 yrs Sex: Female : 1955 Arrival Date: 03/11/2020 Time: 13:57 Bed Waiting Private MD: Diagnosis: Cellulitis of abdominal wall Presentation: 03/11 14:35 Chief complaint: Patient states: Was at the wound center and Dr. Oscar admitted me for ca1 cellulitis on my belly area. Coronavirus screen: Client denies travel out of the [place] in the last 14 days. At this time, the client does not indicate any symptoms associated with coronavirus-19. Ebola Screen: Patient negative for fever greater than or equal to 101.5 degrees Fahrenheit, and additional compatible Ebola Virus Disease symptoms Patient denies exposure to infectious person. Patient denies travel to an Ebola-affected area in the 21 days before illness onset. No symptoms or risks identified at this time. Initial Sepsis Screen: Does the patient meet any 2 criteria? No. Patient's initial sepsis screen is negative. Does the patient have a suspected source of infection? No. Patient's initial sepsis screen is negative. Risk Assessment: Do you want to hurt yourself or someone else? Patient reports no desire to harm self or others. Onset of symptoms was March 11, 2020. 14:35 Method Of Arrival: Wheelchair ca1 14:35 Acuity: ISSAC 3 ca1 Historical: - Allergies: 14:37 Farmiga; ca1 14:37 Januvia; ca1 14:37 Latex, Natural Rubber; ca1 14:37 PENICILLINS; ca1 14:37 Morphine; ca1 14:37 sitagliptin; ca1 - PMHx: 14:37 chronic fatigue; Diabetes - IDDM; dyslipidemia; Fibromyalgia; GERD; Hypertension; ca1 Hypothyroidism; Sleep Apnea; vitamin d deficiency; Vitiligo; - PSHx: 14:37 Tubal ligation; ca1 - Immunization history:: Flu vaccine is up to date. - Social history:: Smoking status: Patient denies any tobacco usage or history of. Vital Signs: 14:35 BP 157 / 86; Pulse 81; Resp 16 S; Temp 98.6(TE); Pulse Ox 99% on R/A; Weight 176.9 kg ca1 (R); Height 5 ft. 2 in. (157.48 cm) (R); Pain 10/10; 14:35 Body Mass Index 71.33 (176.90 kg, 157.48 cm) ca1 ED Course: 13:57 Patient arrived in ED. ag5 14:34 Arm band placed on right wrist. ca1 14:36 Triage completed. ca1 17:47 Raffaele Oscar MD is Hospitalizing Provider. dm5 Administered Medications: No medications were administered Outcome: 17:47 Decision to Hospitalize by Provider. dm5 17:47 Patient left the ED. dm5 Signatures: Cortney Disla, RN RN dm5 Dixie Roy RN RN ca1 Ann Townsend ag5
[2020-03-11 18:06] VITALS: BMI 83.2
[2020-03-11] MEDS: NA CHLORIDE 0.9% 1,000 ML IV SCH (18:18)
[2020-03-11 18:36] LABS: Basophils % 0.7 % (0-1.3); Lymphocytes % 9.3 % (15.3-44.8); MPV 9.1 fL (7.6-11.3); RBC Red Blood Cell Count 3.96 M/uL (3.86-4.86)
[2020-03-11 19:04] LABS: Albumin 2.9 g/dL (3.4-5.0); Bilirubin Total 0.3 mg/dL (0.2-1.0); C-Reactive Protein 6.12 mg/L (<3.00); Magnesium 2.2 mg/dL (1.8-2.4); Phosphorus 3.7 mg/dL (2.5-4.9); Potassium 4.1 mmol/L (3.5-5.1); Protein, Total 6.5 g/dL (6.4-8.2); Thyroid Stimulating Hormone 0.272 uIU/mL (0.360-3.740)
[2020-03-11] MEDS ORDERED: VANCOMYCIN 3 GM in NA CHLORIDE 0.9% 500 ML IVPB SCH (20:00)
[2020-03-11] MEDS ORDERED: DIPHENHYDRAMINE 50 MG/ML VIAL IV ONE (20:25)
[2020-03-11] MEDS ORDERED: METHYLPREDNISOLONE 125 MG INJ IV ONE (20:26)
[2020-03-11] MEDS ORDERED: METHYLPREDNISOLONE 125 MG INJ ONE (20:30)
[2020-03-11] MEDS ORDERED: DIPHENHYDRAMINE 50 MG/ML VIAL ONE (20:31)
[2020-03-11] MEDS: CIPROFLOXACIN 400mg IV 400 MG/200 ML BAG IV SCH (21:07)
[2020-03-12 01:26] LABS: Urine Appearance CLEAR; Urine Blood NEGATIVE (NEG); Urine Color YELLOW; Urine Glucose TRACE (NEG); Urine Protein NEGATIVE (NEG); Urine Specific Gravity >=1.030 (1.005-1.030)
[2020-03-12 01:30] LABS: Urine Bilirubin NEGATIVE (NEG); Urine Microscopic Reflex NO UMIC
[2020-03-12] MEDS: ACETAMINOPHEN 500 MG TAB PO PRN ×2 (02:58→23:49)
[2020-03-12 05:46] LABS: Absolute Lymphocytes (CBC) 0.4 K/uL (0.7-4.9); Basophils % 0.2 % (0-1.3); Hematocrit 36.8 % (36.0-45.0); Lymphocytes % 3.8 % (15.3-44.8); MPV 9.2 fL (7.6-11.3); RBC Red Blood Cell Count 3.92 M/uL (3.86-4.86)
[2020-03-12 06:03] LABS: Albumin 2.7 g/dL (3.4-5.0); Bilirubin Total 0.4 mg/dL (0.2-1.0); Potassium 4.7 mmol/L (3.5-5.1)
[2020-03-12 06:52] LABS: Blood Morphology Comment NOT SEEN (NOT SEEN); Platelet Estimate ADEQ; White Blood Cell Scan OK (OK)
[2020-03-12] MEDS: NA CHLORIDE 0.9% 1,000 ML IV SCH ×2 (09:04→19:40)
[2020-03-12] MEDS: CIPROFLOXACIN 400mg IV 400 MG/200 ML BAG IV SCH ×2 (09:05→21:03)
[2020-03-12] MEDS: ONDANSETRON 4 MG/2 ML VIAL IV PRN (09:06)
--- NOTE | 2020-03-12 09:11 | P.HP ---
Certification for Inpatient Patient admitted to: Inpatient With expected LOS: >2 Midnights Patient will require the following post-hospital care: None Practitioner: I am a practitioner with admitting privileges, knowledge of patient current condition, hospital course, and medical plan of care. Services: Services provided to patient in accordance with Admission requirements found in Title 42 Section 412.3 of the Code of Federal Regulations Patient History Date of Service: 03/11/20 Reason for admission: Panniculitis failed outpatient antibiotic therapy History of Present Illness: Patient is a 64-year-old female came to the wound healing Center for recurrent appointment weekly. Patient has had panniculitis that is been treated for the last month and a half. Patient has been on numerous antibiotics. Patient has not had significant improvement in the panniculitis. They have spoken with General surgery, Dr. Polanco, as well as a plastic surgeon in the [place] area and because of her significant comorbidities as well as her morbid obesity she is not a surgical candidate. She would need to have a gastric her bariatric intervention and lose a significant amount await prior to doing any kind of surgical procedure as the otherwise this would be, recurrent issue. Discussion with wound healing physician, , and recommendations were for just IV antibiotic therapy as oral antibiotic therapy for the last month and a half has failed. Allergies latex Allergy (Verified 09/22/17 11:05) Hives/Rash morphine Allergy (Verified 09/22/17 11:05) Hallucination Penicillins Allergy (Verified 12/24/19 01:51) Shortness of breath sitagliptin [From Januvia] Allergy (Verified 12/24/19 02:00) Shortness of breath vancomycin Allergy (Verified 03/11/20 20:49) Shortness of breath farmiga Allergy (Uncoded 12/24/19 02:00) Shortness of breath Home Medications: Amlodipine Besylate 10 mg PO DAILY 03/11/20 Cholecalciferol (Vitamin D3) [Vitamin D3] 2,000 unit PO DAILY 03/11/20 Doxazosin Mesylate [Cardura] 1 mg PO BEDTIME 03/11/20 Fluticasone/Vilanterol [Breo Ellipta 200-25 Mcg INH] 1 each IH DAILY 03/11/20 Furosemide 20 mg PO DAILY 03/11/20 Insulin Aspart [Novolog Flexpen] 15 unit SQ TID 03/11/20 Insulin Degludec [Tresiba Flextouch U-100] 60 unit SQ BID 03/11/20 Levothyroxine Sodium [Levothyroxine] 200 mcg PO [id number] 03/11/20 Losartan Potassium 100 mg PO BEDTIME 03/11/20 Metoprolol Succinate [Toprol Xl] 50 mg PO DAILY 03/11/20 Milnacipran HCl [Savella] 100 mg PO BID 03/11/20 Pentoxifylline 400 mg PO DAILY 03/11/20 Potassium Chloride [Klor-Con] 20 meq PO DAILY 03/11/20 Pregabalin [Lyrica] 150 mg PO TID 03/11/20 Ropinirole HCl 0.25 mg PO BEDTIME 03/11/20 Spironolactone 25 mg PO DAILY 03/11/20 Topiramate 50 mg PO BID 03/11/20 - Past Medical/Surgical History Has patient received pneumonia vaccine in the past: No Diabetic: Yes -: DM -: HTN -: Hypothyroidism -: Morbid obesity -: Gerd -: Fibromyalgia -: Depression -: COPD -: dyslipidemia -: chronic fatigue -: sleep apnea -: R Heel spur repair -: Tubal ligation Psychosocial/ Personal History: She is and lives at home. She has 3 children - Family History Father Medical History: Heart disease, Hypertension, Diabetes, Stroke Notes: STELLA'S DISEASE. Mother Medical History: Heart disease, Cancer Notes: MYASTENIA GRAVIS. breast ca. still living - Social History Smoking Status: Never smoker Alcohol use: No CD- Drugs: No Caffeine use: No Place of Residence: Home Review of Systems 10-point ROS is otherwise unremarkable Physical Examination - Vital Signs Temperature: 97.1 F Blood Pressure: 132/70 Pulse: 80 Respirations: 19 Pulse Ox (%): 97 - Physical Exam General: Alert, In no apparent distress, Oriented x3, Obese HEENT: Atraumatic, PERRLA, Mucous membr. moist/pink, EOMI, Sclerae nonicteric Neck: Supple, 2+ carotid pulse no bruit, No LAD, Without JVD or thyroid abnormality Respiratory: Clear to auscultation bilaterally, Normal air movement Cardiovascular: Regular rate/rhythm, Normal S1 S2, No murmurs Gastrointestinal: Normal bowel sounds, Soft and benign, No tenderness, No rebound, No guarding, Distended Musculoskeletal: No clubbing, No tenderness, Swelling Integumentary: No rashes Neurological: Normal speech, Normal tone, Sensation intact, Cranial nerves 3-12 intact, Normal affect, Abnormal gait, Abnormal strength Lymphatics: No axilla or inguinal lymphadenopathy Assessment & Plan - Problems (Diagnosis) (1) Panniculitis Current Visit: Yes Status: Acute (2) Morbid obesity with BMI of 70 and over, adult Current Visit: Yes Status: Acute (3) COPD (chronic obstructive pulmonary disease) Current Visit: No Status: Acute (4) Depression Current Visit: No Status: Acute (5) Hyperlipidemia Current Visit: No Status: Chronic Qualifiers: (6) Hypertension Onset Date: 09/24/17 Current Visit: No Status: Chronic Qualifiers: (7) Hypothyroidism Onset Date: 09/24/17 Current Visit: No Status: Chronic Qualifiers: (8) Type 2 diabetes mellitus Current Visit: Yes Status: Acute - Plan 1. Continue with IV antibiotic 2. Continue with local wound care 3. Wound care consultation/ infectious disease consultation 4. Gentle IV hydration/PICC line placement and IV antibiotic arrangement 5. Monitor CBC 6. Strict blood sugar monitoring 7. Pain control 8. GI and DVT prophylaxis Discharge Plan: Home Plan to discharge in: Greater than 2 days - Advance Directives Does patient have a Living Will: No Does patient have a Durable POA for Healthcare: No - Code Status/Comfort Care Code Status Assessed: Yes Code Status: Full Code Critical Care: No Time Spent Managing PTS Care (In Minutes): 45
--- NOTE | 2020-03-12 09:12 | P.PN ---
Subjective Date of Service: 03/12/20 Patient doing well with no new complaints. Continue with antibiotic therapy per Infectious Disease recommendations. Will plan on discharging with Levaquin for 10-14 days. Review of Systems 10-point ROS is otherwise unremarkable Physical Examination - Vital Signs Temperature: 97.1 F Blood Pressure: 132/70 Pulse: 80 Respirations: 19 Pulse Ox (%): 97 - Physical Exam General: Alert, In no apparent distress, Oriented x3 Respiratory: Clear to auscultation bilaterally, Normal air movement Cardiovascular: Regular rate/rhythm, Normal S1 S2, No murmurs Gastrointestinal: Normal bowel sounds, Soft and benign, Non-distended, No tenderness Integumentary: Tenderness/swelling, Erythema, Warmth Neurological: Sensation intact, Cranial nerves 3-12 intact - Studies Medications List Reviewed: Yes Assessment & Plan - Problems (Diagnosis) (1) Panniculitis Current Visit: Yes Status: Acute (2) Morbid obesity with BMI of 70 and over, adult Current Visit: Yes Status: Acute (3) COPD (chronic obstructive pulmonary disease) Current Visit: No Status: Acute (4) Depression Current Visit: No Status: Acute (5) Hyperlipidemia Current Visit: No Status: Chronic Qualifiers: (6) Hypertension Onset Date: 09/24/17 Current Visit: No Status: Chronic Qualifiers: (7) Hypothyroidism Onset Date: 09/24/17 Current Visit: No Status: Chronic Qualifiers: (8) Type 2 diabetes mellitus Current Visit: Yes Status: Acute - Plan Continue with plan of care as mentioned below 1. Continue with IV antibiotic 2. Continue with local wound care with Silvadene ointment 3. Wound care consultation/ infectious disease consultation appreciated 4. Hep-Lock IV 5. Monitor labs closely 6. Strict blood sugar monitoring 7. Pain control 8. GI and DVT prophylaxis Discharge Plan: Home Plan to discharge in: Greater than 2 days - Advance Directives Does patient have a Living Will: No Does patient have a Durable POA for Healthcare: No - Code Status/Comfort Care Code Status: Full Code Critical Care: No Time Spent Managing PTS Care (In Minutes): 35
[2020-03-12] MEDS: CLINDAMYCIN INJ 600 MG in NA CHLORIDE 0.9% 50 ML IV SCH ×2 (10:41→16:11)
[2020-03-12] MEDS ORDERED: MUPIROCIN 2% OINT 22GM TUBE TOP SCH (15:00)
[2020-03-12] MEDS: INSULIN LISPRO 100 UNIT/1 ML SQ SCH (16:32)
[2020-03-12] MEDS: SILVER SULFADIAZINE 1% 50 GM TOP SCH (18:01)
[2020-03-12] MEDS ORDERED: VANCOMYCIN 2 GM in NA CHLORIDE 0.9% 500 ML IVPB SCH (20:00)
--- NOTE | 2020-03-12 20:37 | CON ---
History Of Present Illness: This is a 64-year-old female I was consulted for panniculitis. Patient has multiple wounds and morbid obesity. The patient denies any headache, nausea, vomiting, chest faisal n, abdominal pain, constipation, or diarrhea. She has been on treatment for panniculitis for a month and a half and was given numerous antibiotic. Past Medical History: Hypertension, diabetes mellitus, hypothyroidism, morbid obesity, GERD, fibromy algia, depression, COPD, dyslipidemia, sleep apnea, right heel spur repair, tubal ligation. Allergies: TO MULTIPLE MEDICATIONS INCLUDING PENICILLIN, MORPHINE, VANCOMYCIN, LATEX, FARXIGA, NSAID S, ALUVIA. Social History: Nonsmoker, nondrinker. Lives at home with . Review of Systems: Ten-point review was performed. Physical Examination: General: This is a 64-year-old female, lying in bed, not in any acute cardiopulmonary distress. Vital Signs: Temperature 97.3, pulse 89, respirations 18, blood pressure 144/72. HEENT: Unremarkable. Neck: Supple. Lungs: Clear to auscultation. Heart: S1, S2. Regular. Abdomen: Bowel sounds present, obese with multiple lesions noted and stasis dermatitis changes also noted on the lower part of the abdomen. Extremities: No edema. Laboratory Data: Shows WBC 10.5, hemoglobin 11.7, platelets are 188. Chemistry shows sodium 143, po tassium 4.7, chloride 112, bicarb 25, BUN 22, creatinine 1, glucose is 292, albumin is 2.7. Micro da ta not available. Assessment And Plan: A 64-year-old female with morbid obesity, diabetes mellitus, and hypothyroidism , coming in with multiple small lesions on her lower abdomen secondary to stasis dermatitis and possi ble cellulitis. At this point, none of the lesions are showing any signs of major infections. We wi ll recommend to apply Silvadene to the wound sites at least 2 times to 3 times every day and whenever soiled. Continue antibiotic and supportive care for 10 days. The patient to also recommend to help with nutritional support and sugar control. We will follow the patient as needed. NF/MODL Voice ID: [id number] Report ID: [id number]
[2020-03-12] MEDS: HOME MED 1 EA UNK (Insulin Degludec [Tresiba Flextouch U-100] 100 UNIT/ML Insuln.Pen) SQ SCH (21:00)
[2020-03-12] MEDS ORDERED: SILVER SULFADIAZINE 1% 50 GM TOP SCH (21:00)
[2020-03-12] MEDS ORDERED: DOXAZOSIN 1 MG TAB PO SCH (21:00)
[2020-03-12] MEDS: MILNACIPRAN HCL 100 MG PO SCH (21:00)
[2020-03-12] MEDS: TOPIRAMATE 25 MG TAB PO SCH (21:01)
[2020-03-12] MEDS: LOSARTAN POTASSIUM 50 MG TABLET PO SCH (21:01)
[2020-03-12] MEDS: PREGABALIN 150 MG CAP PO SCH (21:02)
[2020-03-12] MEDS: ROPINIROLE HCL 0.25 MG TAB PO SCH (23:47)
[2020-03-13] MEDS: CLINDAMYCIN INJ 600 MG in NA CHLORIDE 0.9% 50 ML IV SCH ×3 (01:22→17:14)
[2020-03-13] MEDS ORDERED: FENTANYL CITR 100 MCG/2 ML IV ONE (01:30)
[2020-03-13] MEDS: NA CHLORIDE 0.9% 1,000 ML IV SCH ×3 (01:59→21:52)
[2020-03-13] MEDS: LEVOTHYROXINE SOD 0.1 MG TAB PO SCH (06:00)
[2020-03-13] MEDS: INSULIN LISPRO 100 UNIT/1 ML SQ SCH ×3 (07:54→17:00)
[2020-03-13] MEDS: SILVER SULFADIAZINE 1% 50 GM TOP SCH (07:55)
[2020-03-13] MEDS: FUROSEMIDE 20 MG TABLET PO SCH (07:56)
[2020-03-13] MEDS: SPIRONOLACTONE 25 MG TABLET PO SCH (07:56)
[2020-03-13] MEDS: POTASSIUM CL SA 10 MEQ TAB PO SCH (07:56)
[2020-03-13] MEDS: VITAMIN D 1000 UNIT TAB PO SCH (07:57)
[2020-03-13] MEDS: PENTOXIFYLLINE ER 400 MG TAB PO SCH (07:57)
[2020-03-13] MEDS: TOPIRAMATE 25 MG TAB PO SCH ×2 (07:57→21:46)
[2020-03-13] MEDS: AMLODIPINE 10 MG TAB PO SCH (08:05)
[2020-03-13] MEDS: CIPROFLOXACIN 400mg IV 400 MG/200 ML BAG IV SCH ×2 (08:05→21:48)
[2020-03-13] MEDS: METOPROLOL XL 50 MG TAB PO SCH (08:05)
[2020-03-13] MEDS: PREGABALIN 150 MG CAP PO SCH ×3 (08:06→21:45)
[2020-03-13] MEDS: HOME MED 1 EA UNK (Fluticasone/Vilanterol [Breo Ellipta 200-25 Mcg Inh] Blst.W.Dev) IH SCH (09:00)
[2020-03-13] MEDS: HOME MED 1 EA UNK (Insulin Degludec [Tresiba Flextouch U-100] 100 UNIT/ML Insuln.Pen) SQ SCH ×2 (09:00→21:00)
[2020-03-13] MEDS: MILNACIPRAN HCL 100 MG PO SCH ×2 (09:00→21:00)
--- NOTE | 2020-03-13 17:31 | RAD REPORT ---
EXAM DESCRIPTION: RAD - Chest Single View - 03/13/2020 5:14 pm CLINICAL HISTORY: PICC line placement COMPARISON: March 08 FINDINGS: Portable chest was obtained following placement of a left upper extremity PICC line. The c atheter tip is in the mid SVC.
[2020-03-13] MEDS: ROPINIROLE HCL 0.25 MG TAB PO SCH (21:44)
[2020-03-13] MEDS: LOSARTAN POTASSIUM 50 MG TABLET PO SCH (21:45)
[2020-03-13] MEDS: DOXAZOSIN 2 MG TAB PO SCH (21:46)
[2020-03-14] MEDS: CLINDAMYCIN INJ 600 MG in NA CHLORIDE 0.9% 50 ML IV SCH ×3 (00:47→16:31)
[2020-03-14] MEDS: ACETAMINOPHEN 500 MG TAB PO PRN (01:01)
[2020-03-14] MEDS: HYDROCODONE/APAP 7.5/325 MG TAB PO PRN (04:27)
[2020-03-14] MEDS: LEVOTHYROXINE SOD 0.1 MG TAB PO SCH (05:33)
[2020-03-14] MEDS: VITAMIN D 1000 UNIT TAB PO SCH (08:58)
[2020-03-14] MEDS: FUROSEMIDE 20 MG TABLET PO SCH (08:58)
[2020-03-14] MEDS: POTASSIUM CL SA 10 MEQ TAB PO SCH (08:58)
[2020-03-14] MEDS: SPIRONOLACTONE 25 MG TABLET PO SCH (08:58)
[2020-03-14] MEDS: SILVER SULFADIAZINE 1% 50 GM TOP SCH (08:59)
[2020-03-14] MEDS: PREGABALIN 150 MG CAP PO SCH ×3 (08:59→21:46)
[2020-03-14] MEDS: AMLODIPINE 10 MG TAB PO SCH (08:59)
[2020-03-14] MEDS: PENTOXIFYLLINE ER 400 MG TAB PO SCH (08:59)
[2020-03-14] MEDS: METOPROLOL XL 50 MG TAB PO SCH (08:59)
[2020-03-14] MEDS: TOPIRAMATE 25 MG TAB PO SCH ×2 (08:59→21:47)
[2020-03-14] MEDS: HOME MED 1 EA UNK (Insulin Degludec [Tresiba Flextouch U-100] 100 UNIT/ML Insuln.Pen) SQ SCH ×2 (09:00→21:00)
[2020-03-14] MEDS: MILNACIPRAN HCL 100 MG PO SCH ×2 (09:00→21:00)
[2020-03-14] MEDS: HOME MED 1 EA UNK (Fluticasone/Vilanterol [Breo Ellipta 200-25 Mcg Inh] Blst.W.Dev) IH SCH (09:00)
[2020-03-14] MEDS: INSULIN LISPRO 100 UNIT/1 ML SQ SCH ×3 (09:01→16:10)
[2020-03-14] MEDS: CIPROFLOXACIN 400mg IV 400 MG/200 ML BAG IV SCH ×2 (09:01→21:48)
[2020-03-14] MEDS: ONDANSETRON 4 MG/2 ML VIAL IV PRN ×2 (12:13→23:08)
[2020-03-14] MEDS: NA CHLORIDE 0.9% 1,000 ML IV SCH (12:14)
--- NOTE | 2020-03-14 14:02 | P.PN ---
Date of Service: 03/13/20 Subjective Patient doing well with no new complaints. Continue with antibiotic therapy per Infectious Disease recommendations. Will plan on discharging with Levaquin for 10-14 days. Review of Systems 10-point ROS is otherwise unremarkable Physical Examination - Vital Signs Reviewed - Physical Exam General: Alert, In no apparent distress, Oriented x3 Respiratory: Clear to auscultation bilaterally, Normal air movement Cardiovascular: Regular rate/rhythm, Normal S1 S2, No murmurs Gastrointestinal: Normal bowel sounds, Soft and benign, Non-distended, No tenderness Integumentary: Tenderness/swelling, Erythema, Warmth Neurological: Sensation intact, Cranial nerves 3-12 intact Assessment & Plan - Problems (Diagnosis) (1) Panniculitis Current Visit: Yes Status: Acute (2) Morbid obesity with BMI of 70 and over, adult Current Visit: Yes Status: Acute (3) Obesity hypoventilation syndrome Current Visit: No Status: Acute (4) Depression Current Visit: No Status: Acute (5) Hyperlipidemia Current Visit: No Status: Chronic (6) Hypertension Onset Date: 09/24/17 Current Visit: No Status: Chronic (7) Hypothyroidism Onset Date: 09/24/17 Current Visit: No Status: Chronic (8) Type 2 diabetes mellitus Current Visit: Yes Status: Acute - Plan Continue with plan of care as mentioned below: 1. Continue with IV antibiotic 2. Continue with local wound care with Silvadene ointment 3. Wound care consultation/ infectious disease consultation appreciated 4. Hep-Lock IV 5. Monitor labs closely 6. Strict blood sugar monitoring 7. Pain control 8. GI and DVT prophylaxis
--- NOTE | 2020-03-14 14:03 | P.PN ---
Date of Service: 03/14/20 Subjective No new complaints. Continue with antibiotic therapy. Review of Systems 10-point ROS is otherwise unremarkable Physical Examination - Vital Signs Reviewed - Physical Exam General: Alert, In no apparent distress, Oriented x3 Respiratory: Clear to auscultation bilaterally, Normal air movement Cardiovascular: Regular rate/rhythm, Normal S1 S2, No murmurs Gastrointestinal: Normal bowel sounds, Soft and benign, Non-distended, No tenderness Integumentary: Tenderness/swelling, Erythema, Warmth Neurological: Sensation intact, Cranial nerves 3-12 intact Assessment & Plan - Problems (Diagnosis) (1) Panniculitis Current Visit: Yes Status: Acute (2) Morbid obesity with BMI of 70 and over, adult Current Visit: Yes Status: Acute (3) Obesity hypoventilation syndrome Current Visit: No Status: Acute (4) Depression Current Visit: No Status: Acute (5) Hyperlipidemia Current Visit: No Status: Chronic (6) Hypertension Onset Date: 09/24/17 Current Visit: No Status: Chronic (7) Hypothyroidism Onset Date: 09/24/17 Current Visit: No Status: Chronic (8) Type 2 diabetes mellitus Current Visit: Yes Status: Acute - Plan Continue with plan of care as mentioned below: 1. Continue with IV antibiotic 2. Continue with local wound care with Silvadene ointment 3. Wound care consultation/ infectious disease consultation appreciated 4. Hep-Lock IV 5. Monitor labs closely 6. Strict blood sugar monitoring 7. Pain control 8. GI and DVT prophylaxis
[2020-03-14] MEDS: LOSARTAN POTASSIUM 50 MG TABLET PO SCH (21:46)
[2020-03-14] MEDS: ROPINIROLE HCL 0.25 MG TAB PO SCH (21:46)
[2020-03-14] MEDS: DOXAZOSIN 2 MG TAB PO SCH (21:46)
[2020-03-15] MEDS: CLINDAMYCIN INJ 600 MG in NA CHLORIDE 0.9% 50 ML IV SCH ×3 (00:39→16:50)
[2020-03-15] MEDS: ACETAMINOPHEN 500 MG TAB PO PRN (00:40)
[2020-03-15] MEDS: NA CHLORIDE 0.9% 1,000 ML IV SCH ×2 (01:00→05:16)
[2020-03-15] MEDS: HYDROCODONE/APAP 7.5/325 MG TAB PO PRN ×2 (03:32→20:54)
[2020-03-15] MEDS: LEVOTHYROXINE SOD 0.1 MG TAB PO SCH (05:10)
[2020-03-15 05:40] LABS: Absolute Lymphocytes (CBC) 1.1 K/uL (0.7-4.9); Basophils % 0.9 % (0-1.3); Hematocrit 30.6 % (36.0-45.0); Lymphocytes % 13.5 % (15.3-44.8); RBC Red Blood Cell Count 3.28 M/uL (3.86-4.86)
[2020-03-15 05:59] LABS: Potassium 3.8 mmol/L (3.5-5.1)
[2020-03-15] MEDS: HOME MED 1 EA UNK (Fluticasone/Vilanterol [Breo Ellipta 200-25 Mcg Inh] Blst.W.Dev) IH SCH (09:00)
[2020-03-15] MEDS: MILNACIPRAN HCL 100 MG PO SCH ×2 (09:00→20:59)
[2020-03-15] MEDS: HOME MED 1 EA UNK (Insulin Degludec [Tresiba Flextouch U-100] 100 UNIT/ML Insuln.Pen) SQ SCH ×2 (09:00→20:56)
[2020-03-15] MEDS: INSULIN LISPRO 100 UNIT/1 ML SQ SCH ×3 (09:22→16:51)
[2020-03-15] MEDS: AMLODIPINE 10 MG TAB PO SCH (09:22)
[2020-03-15] MEDS: POTASSIUM CL SA 10 MEQ TAB PO SCH (09:22)
[2020-03-15] MEDS: VITAMIN D 1000 UNIT TAB PO SCH (09:22)
[2020-03-15] MEDS: PREGABALIN 150 MG CAP PO SCH ×3 (09:23→20:57)
[2020-03-15] MEDS: METOPROLOL XL 50 MG TAB PO SCH (09:23)
[2020-03-15] MEDS: PENTOXIFYLLINE ER 400 MG TAB PO SCH (09:23)
[2020-03-15] MEDS: SPIRONOLACTONE 25 MG TABLET PO SCH (09:23)
[2020-03-15] MEDS: TOPIRAMATE 25 MG TAB PO SCH ×2 (09:23→20:58)
[2020-03-15] MEDS: FUROSEMIDE 20 MG TABLET PO SCH (09:23)
[2020-03-15] MEDS: SILVER SULFADIAZINE 1% 50 GM TOP SCH (09:25)
[2020-03-15] MEDS: CIPROFLOXACIN 400mg IV 400 MG/200 ML BAG IV SCH ×2 (09:26→20:55)
--- NOTE | 2020-03-15 15:54 | P.PN ---
Subjective Date of Service: 03/15/20 Chief Complaint: Panniculitis failed outpatient antibiotic therapy Subjective: No new changes, Doing well Review of Systems 10-point ROS is otherwise unremarkable Physical Examination - Vital Signs Temperature: 97 F Blood Pressure: 105/60 Pulse: 79 Respirations: 20 Pulse Ox (%): 97 - Physical Exam General: Alert, In no apparent distress HEENT: Normocephalic, PERRLA Neck: Supple, 2+ carotid pulse no bruit, JVD not distended Respiratory: Clear to auscultation bilaterally Cardiovascular: No edema, Regular rate/rhythm Gastrointestinal: Other (multiple abdominal wounds-more prominant on right lower quadrent) Neurological: Normal gait - Studies Medications List Reviewed: Yes Assessment And Plan - Plan Assessment; -multiple abdominal lesions secondary to stasis dermatitis and possible cellulites -DM type 2 -morbid obesity -hypothyroidism Plan: -continue current antibiotic therapy -continue topical wound care. Patient will visit wound care clinic outpatient. -medical management per primary team -continue to monitor CBC and BMP -continue to monitor for signs of infection Plan of care discussed with Dr. Casey.
--- NOTE | 2020-03-15 16:14 | P.PN ---
Subjective Date of Service: 03/15/20 Chief Complaint: Panniculitis failed outpatient antibiotic therapy Subjective: Improving Physical Examination - Vital Signs Temperature: 97 F Blood Pressure: 105/60 Pulse: 79 Respirations: 20 Pulse Ox (%): 97 - Physical Exam General: Alert, Cooperative HEENT: Atraumatic Neck: Supple Respiratory: Clear to auscultation bilaterally, Normal air movement Cardiovascular: Normal pulses, Regular rate/rhythm Gastrointestinal: Other (Large pannus noted. Erythema noted but improved. edema also improved) Neurological: Normal speech, Normal strength at 5/5 x4 extr, Normal tone, Normal affect - Studies Medications List Reviewed: Yes Assessment & Plan Discharge Plan: Home Plan to discharge in: 24 Hours Physician Review Additional Text: Impression: Panniculitis complicated with morbid obesity BMI greater than 83 Obesity hypoventilation syndrome Depression Hyperlipidemia Hypertension Hypothyroidism Diabetes mellitus type 2 Plan: Medications reviewed continue current wound care. Plan of care is for IV Levaquin for 10 days as an outpatient. Case discussed with social worker school. Trying to make arrangements with home health and with insurance. Anticipate possible discharge tomorrow with IV Levaquin in place. PICC line also in place. Continue current medications at this time for diabetes, hypertension, hyperlipidemia, and hypothyroidism. Encourage ambulation. Continue physical therapy. Case discussed with infectious disease. Anticipate discharge tomorrow. Time Spent Managing Pts Care (In Minutes): 55
[2020-03-15] MEDS: DOXAZOSIN 2 MG TAB PO SCH (20:57)
[2020-03-15] MEDS: ROPINIROLE HCL 0.25 MG TAB PO SCH (20:58)
[2020-03-15] MEDS: LOSARTAN POTASSIUM 50 MG TABLET PO SCH (21:00)
[2020-03-15] MEDS: ONDANSETRON 4 MG/2 ML VIAL IV PRN (23:58)
[2020-03-16] MEDS: CLINDAMYCIN INJ 600 MG in NA CHLORIDE 0.9% 50 ML IV SCH ×2 (00:47→13:22)
[2020-03-16] MEDS: HYDROCODONE/APAP 7.5/325 MG TAB PO PRN ×2 (02:34→13:22)
[2020-03-16] MEDS: LEVOTHYROXINE SOD 0.1 MG TAB PO SCH (05:50)
[2020-03-16] MEDS: INSULIN LISPRO 100 UNIT/1 ML SQ SCH ×2 (08:00→11:58)
[2020-03-16] MEDS: HOME MED 1 EA UNK (Insulin Degludec [Tresiba Flextouch U-100] 100 UNIT/ML Insuln.Pen) SQ SCH (09:00)
[2020-03-16] MEDS: HOME MED 1 EA UNK (Fluticasone/Vilanterol [Breo Ellipta 200-25 Mcg Inh] Blst.W.Dev) IH SCH (09:00)
[2020-03-16] MEDS: MILNACIPRAN HCL 100 MG PO SCH (09:00)
[2020-03-16 09:30] VITALS: O2SAT 95
[2020-03-16] MEDS: SPIRONOLACTONE 25 MG TABLET PO SCH (10:19)
[2020-03-16] MEDS: TOPIRAMATE 25 MG TAB PO SCH (10:19)
[2020-03-16] MEDS: VITAMIN D 1000 UNIT TAB PO SCH (10:19)
[2020-03-16] MEDS: FUROSEMIDE 20 MG TABLET PO SCH (10:20)
[2020-03-16] MEDS: AMLODIPINE 10 MG TAB PO SCH (10:20)
[2020-03-16] MEDS: METOPROLOL XL 50 MG TAB PO SCH (10:20)
[2020-03-16] MEDS: CIPROFLOXACIN 400mg IV 400 MG/200 ML BAG IV SCH (10:21)
[2020-03-16] MEDS: POTASSIUM CL SA 10 MEQ TAB PO SCH (10:21)
[2020-03-16] MEDS: PENTOXIFYLLINE ER 400 MG TAB PO SCH (10:21)
[2020-03-16] MEDS: PREGABALIN 150 MG CAP PO SCH ×2 (10:21→14:59)
[2020-03-16] MEDS: SILVER SULFADIAZINE 1% 50 GM TOP SCH (10:23)
[2020-03-16 13:46] VITALS: BP 133/63; TEMP 97
--- NOTE | 2020-03-16 14:39 | P.DS ---
Admission Date: 03/11/20 Discharge Date: 03/16/20 Primary Care Provider: Dr. Oates Disposition: DC HOME/HOME HEALTH CARE Discharge Condition: GOOD Reason for Admission: Panniculitis failed outpatient antibiotic therapy Consultations: Infectious disease-Dr. Casey Procedures: Impression: Panniculitis complicated with morbid obesity BMI greater than 83, failed outpatient therapy Obesity hypoventilation syndrome complicated with obstructive sleep apnea Depression Hyperlipidemia Hypertension Hypothyroidism Diabetes mellitus type 2 Restless leg syndrome Brief History of Present Illness: 64-year-old female came to the wound healing Center for recurrent appointment weekly. Patient has had panniculitis that is been treated for the last month and a half. Patient has been on numerous antibiotics. Patient has not had significant improvement in the panniculitis. They have spoken with General surgery, Dr. Polanco, as well as a plastic surgeon in the [place] area and because of her significant comorbidities as well as her morbid obesity she is not a surgical candidate. She would need to have a gastric bariatric intervention and lose a significant amount await prior to doing any kind of surgical procedure as the otherwise this would be, recurrent issue. Patient was admitted for treatment of panniculitis. Hospital Course: Patient was admitted for treatment of panniculitis. Patient had failed outpatient therapy. Patient seen by a Wound care center. Patient seen by surgery who consulted with plastic surgery about the patient. Patient is not a surgical candidate due to her morbid obesity. BMI greater than 80. Therefore patient was admitted for IV antibiotic therapy. Patient seen and evaluated by infectious disease. Patient improved with therapy. Infectious Disease recommended to continue IV antibiotic therapy-Levaquin 500 mg daily for 10 more days. At discharge home health has been arranged to continue IV antibiotic therapy. PICC line in place. PICC line can be removed after 10 days. Recommend follow up with her PCP to further monitor and adjust. Recommend follow up at the wound Care Center to further address is well. Continue current wound care. Recommend follow up with retail pos specialist, surgery with the possibility of bariatric evaluation in the future. After treatment PICC line can be removed. This can be done with the help of her PCP or at the wound Care Center. Patient with diabetes mellitus type 2. At discharge she will continue with her medications including receive 60 mg 1 pill twice daily and NovoLog 15 units subcu 3 times a day. Recommend to maintain blood sugar less than 140 fasting and less than 2 after meals. Further adjustment can be done by her PCP. Patient with hypertension. At discharge she will continue with her medications including Norvasc 10 mg daily, losartan 100 mg daily, metoprolol XL 50 mg daily, and Cardura 1 mg daily. Recommend to maintain blood pressure less than 130/80. Further adjustment can be done by her PCP. Patient with hypothyroidism. At discharge she will continue with levothyroxine 200 mcg daily. Patient with obesity hypoventilation syndrome, COPD complicated with obstructive sleep apnea. At discharge she will continue with CPAP at night. Patient will continue with 1500 cc per day fluid restriction and low-salt diet. Patient continue with Lasix 20 mg daily, Aldactone 25 mg daily, and potassium supplementation. Patient will also continue with Breo 1 puff daily. Patient will also continue with Further adjustment in medication can be done by her PCP. Patient with restless leg syndrome and chronic pain. At discharge she will continue with her medications including Lyrica 150 mg 3 times a day, Requip 0.25 mg at bedtime. Recommend follow up with pain management to further monitor and address. Contact information to local pain management will be provided. Patient will continue with her other medications. This includes trend golf order mg daily, Savella 100 mg twice daily and Topamax 50 mg 1 pill twice daily. Vital Signs/Physical Exam: Temp Pulse Resp BP Pulse Ox 97 F 84 18 133/63 95 03/16/20 12:00 03/16/20 12:00 03/16/20 12:00 03/16/20 12:00 03/16/20 12:00 General: Alert, In no apparent distress, Oriented x3, Cooperative HEENT: Atraumatic Neck: Supple Respiratory: Clear to auscultation bilaterally, Normal air movement Cardiovascular: Normal pulses, Regular rate/rhythm Gastrointestinal: Other (Large pannus. No significant edema or erythema noted.) Neurological: Normal speech, Normal strength at 5/5 x4 extr, Normal tone, Normal affect Laboratory Data at Discharge: WBC 8.00 K/uL (4.3-10.9) D 03/15/20 05:15 Hgb 9.8 g/dL (12.0-15.0) L 03/15/20 05:15 Hct 30.6 % (36.0-45.0) L D 03/15/20 05:15 Plt Count 144 K/uL (152-406) L D 03/15/20 05:15 Sodium 144 mmol/L (136-145) 03/15/20 05:15 Potassium 3.8 mmol/L (3.5-5.1) 03/15/20 05:15 BUN 19 mg/dL (7-18) H 03/15/20 05:15 Creatinine 0.77 mg/dL (0.55-1.3) 03/15/20 05:15 Glucose 130 mg/dL (74-106) H 03/15/20 05:15 Phosphorus 3.7 mg/dL (2.5-4.9) 03/11/20 18:04 Magnesium 2.2 mg/dL (1.8-2.4) 03/11/20 18:04 Total Bilirubin 0.4 mg/dL (0.2-1.0) 03/12/20 05:13 AST 13 U/L (15-37) L 03/12/20 05:13 ALT 41 U/L (12-78) 03/12/20 05:13 Alkaline Phosphatase 86 U/L (45-117) 03/12/20 05:13 Home Medications: Amlodipine Besylate 10 mg PO DAILY 03/11/20 Cholecalciferol (Vitamin D3) [Vitamin D3] 2,000 unit PO DAILY 03/11/20 Doxazosin Mesylate [Cardura] 1 mg PO BEDTIME 03/11/20 Fluticasone/Vilanterol [Breo Ellipta 200-25 Mcg INH] 1 each IH DAILY 03/11/20 Furosemide 20 mg PO DAILY 03/11/20 Insulin Aspart [Novolog Flexpen] 15 unit SQ TID 03/11/20 Insulin Degludec [Tresiba Flextouch U-100] 60 unit SQ BID 03/11/20 Levothyroxine Sodium [Levothyroxine] 200 mcg PO [id number] 03/11/20 Losartan Potassium 100 mg PO BEDTIME 03/11/20 Metoprolol Succinate [Toprol Xl*] 50 mg PO DAILY 03/11/20 Milnacipran HCl [Savella] 100 mg PO BID 03/11/20 Pentoxifylline 400 mg PO DAILY 03/11/20 Potassium Chloride [Klor-Con] 20 meq PO DAILY 03/11/20 Pregabalin [Lyrica] 150 mg PO TID 03/11/20 Ropinirole HCl 0.25 mg PO BEDTIME 03/11/20 Spironolactone 25 mg PO DAILY 03/11/20 Topiramate 50 mg PO BID 03/11/20 Physician Discharge Instructions: Follow up with PCP in 1 week to follow up this hospitalization. Patient was admitted for treatment of panniculitis. Patient had failed outpatient therapy. Patient seen by a Wound care center. Patient seen by surgery who consulted with plastic surgery about the patient. Patient is not a surgical candidate due to her morbid obesity. BMI greater than 80. Therefore patient was admitted for IV antibiotic therapy. Patient seen and evaluated by infectious disease. Patient improved with therapy. Infectious Disease recommended to continue IV antibiotic therapy-Levaquin 500 mg daily for 10 more days. At discharge home health has been arranged to continue IV antibiotic therapy. PICC line in place. PICC line can be removed after 10 days. Recommend follow up with her PCP to further monitor and adjust. Recommend follow up at the wound Care Center to further address is well. Continue current wound care. Recommend follow up with retail pos specialist, surgery with the possibility of bariatric evaluation in the future. After treatment PICC line can be removed. This can be done with the help of her PCP or at the wound Care Center. Patient with diabetes mellitus type 2. At discharge she will continue with her medications including receive 60 mg 1 pill twice daily and NovoLog 15 units subcu 3 times a day. Recommend to maintain blood sugar less than 140 fasting and less than 2 after meals. Further adjustment can be done by her PCP. Patient with hypertension. At discharge she will continue with her medications including Norvasc 10 mg daily, losartan 100 mg daily, metoprolol XL 50 mg daily, and Cardura 1 mg daily. Recommend to maintain blood pressure less than 130/80. Further adjustment can be done by her PCP. Patient with hypothyroidism. At discharge she will continue with levothyroxine 200 mcg daily. Patient with obesity hypoventilation syndrome, COPD complicated with obstructive sleep apnea. At discharge she will continue with CPAP at night. Patient will continue with 1500 cc per day fluid restriction and low-salt diet. Patient continue with Lasix 20 mg daily, Aldactone 25 mg daily, and potassium supplementation. Patient will also continue with Breo 1 puff daily. Patient will also continue with Further adjustment in medication can be done by her PCP. Patient with restless leg syndrome and chronic pain. At discharge she will continue with her medications including Lyrica 150 mg 3 times a day, Requip 0.25 mg at bedtime. Recommend follow up with pain management to further monitor and address. Contact information to local pain management will be provided. Patient will continue with her other medications. This includes trend golf order mg daily, Savella 100 mg twice daily and Topamax 50 mg 1 pill twice daily. Diet: ADA Activity: Fall precautions Followup: Unknown,U [Primary Care Provider] - Time spent managing pt's care (in minutes): 55
--- NOTE | 2020-03-16 16:03 | P.PN ---
Subjective Date of Service: 03/16/20 Primary Care Provider: Dr. Oates Chief Complaint: Panniculitis failed outpatient antibiotic therapy Subjective: No new changes remains afebrile with Tmax of 97.0 Review of Systems 10-point ROS is otherwise unremarkable Physical Examination - Vital Signs Temperature: 97 F Blood Pressure: 133/63 Pulse: 84 Respirations: 18 Pulse Ox (%): 95 - Physical Exam General: Obese HEENT: Atraumatic, Normocephalic Neck: Supple, 2+ carotid pulse no bruit Respiratory: Clear to auscultation bilaterally, Other Cardiovascular: No edema, Other (diminished heart sounds due to body habitus) Gastrointestinal: Other (multiple abdominal wounds ) - Studies Laboratory Last Values SARS-CoV-2 RNA (RT-PCR) Negative (NEGATIVE) 03/11/20 14:49 Medications List Reviewed: Yes Assessment And Plan - Plan Assessment; -multiple abdominal lesions secondary to stasis dermatitis and possible cellulites -DM type 2 -morbid obesity -hypothyroidism Plan: -continue current antibiotic therapy -continue topical wound care. Patient will visit wound care clinic outpatient. -medical management per primary team -continue to monitor CBC and BMP -continue to monitor for signs of infection Plan of care discussed with Dr. Casey. Physician Review Additional Text: Impression: Panniculitis complicated with morbid obesity BMI greater than 83 Obesity hypoventilation syndrome Depression Hyperlipidemia Hypertension Hypothyroidism Diabetes mellitus type 2 Plan: Medications reviewed continue current wound care. Plan of care is for IV Levaquin for 10 days as an outpatient. Case discussed with social security benefits interviewer. Trying to make arrangements with home health and with insurance. Anticipate possible discharge tomorrow with IV Levaquin in place. PICC line also in place. Continue current medications at this time for diabetes, hypertension, hyperlipidemia, and hypothyroidism. Encourage ambulation. Continue physical therapy. Case discussed with infectious disease. Anticipate discharge tomorrow.
== END 2020-03-16 16:06 | disposition home health service (06) | DRG 607 ==
LOC: ER 13:56 → 2ND 16:57
PROVIDERS: ADMIT Hospitalist; ATTEND Family Medicine
PROC: 02HV33Z Insertion of Infusion Device into Superior Vena Cava, Percutaneous Approach (ICD-10-PCS; principal; 2020-03-13)
DX: M79.3 Panniculitis, unspecified (principal); Z68.45 Body mass index [BMI] 70 or greater, adult; E66.2 Morbid (severe) obesity with alveolar hypoventilation; M79.7 Fibromyalgia; I87.2 Venous insufficiency (chronic) (peripheral); E03.9 Hypothyroidism, unspecified; I10 Essential (primary) hypertension; J44.9 Chronic obstructive pulmonary disease, unspecified; G25.81 Restless legs syndrome; K21.9 Gastro-esophageal reflux disease without esophagitis; E78.5 Hyperlipidemia, unspecified; E11.9 Type 2 diabetes mellitus without complications; Z88.5 Allergy status to narcotic agent; Z88.0 Allergy status to penicillin; Z88.8 Allergy status to other drugs, medicaments and biological substances; Z91.040 Latex allergy status; Z98.51 Tubal ligation status; Z79.4 Long term (current) use of insulin; Z79.890 Hormone replacement therapy; Z79.899 Other long term (current) drug therapy; Z20.822 Contact with and (suspected) exposure to COVID-19
CPT/HCPCS: 36415; 36569; 71045; 80048; 80053; 81003; 82947; 83735; 83880; 84100; 84145; 84439; 84443; 85025; 86140; 99281; J0744; J1200; J1815; J2405; J2930; J3010; J3370; J7030; J7040; U0003

== ENCOUNTER 2020-05-18 14:43 | Inpatient (IN) | payer OTHER ==
--- OUTSIDE RECORDS SUMMARY | 2020-05-18 14:46 | XMS REPORT | Continuity of Care Document ---
:1955 Author Organization [facility] t Address [address] [place] [address] Care Team Providers Name Role Phone Pcp Primary Care Physician Unavailable Carlin BROWN Attending Clinician Adolfo Echevarria MD Attending Clinician Angela Singh MD Attending Clinician ADOLFO ECHEVARRIA Attending Clinician Unavailable Loco Nelson DO Attending Clinician Doctor Unassigned, Name Attending Clinician Unavailable ANGELA SINGH Admitting Clinician Unavailable Payers Payer Name Policy Type Policy Effective Date Expiration Date Sour ce Number [facility] [id number] [facility] - Me dical CHOICE Center [id number]/POS Problems Condition Condition Condition Status Onset Resolution Last Treating Co mments Source Name Details Category Date Date Treatment Clinician Date Panniculit Panniculit Disease Active [facility] - 00:[facility]: Medical 00 Center Allergies, Adverse Reactions, Alerts Allergy Allergy Status Severity Reaction(s) Onset Inactive Treating Comm ents Source Name Type Date Date Clinician Penicill Propensi Active [facility] - adverse 00:00: Medical reaction 00 Center s Ciproflo Propensi Active [facility] xacin ty to 3-15 [facility] - adverse 00:00: Medical reaction 00 Center s Clarithr Propensi Active [facility] omycin ty to 3-15 [facility] - adverse 00:00: Medical reaction 00 Center s Dapaglif Propensi Active [facility] lozin ty to 3-15 [facility] - adverse 00:00: Medical reaction 00 Center s Latex Propensi Active [facility] ty to 3-15 [facility] - adverse 00:00: Medical reaction 00 Center s Levoflox Propensi Active [facility] acin ty to 3-15 [facility] - adverse 00:00: Medical reaction 00 Center s Morphine Propensi Active [facility] ty to 3-15 [facility] - adverse 00:00: Medical reaction 00 Center s Social History Social Habit Start Date Stop Date Quantity Comments Source Sex Assigned At [facility] Exposure to SARS-CoV-2 Not sure [facility] (event) Center Medications Ordered Filled Start Stop Current Ordering Indication Dosage Frequency Signature Comments Components Source Medication Medication Date Date Medication? Clinician (SIG) Name Name doxazosin Yes 1mg QD Take [address] [address] (CARDURA) 1 3-15 by mouth Luke s - MG tablet 16:58: nightly. Medi [place] 47 Center metoprolol Yes 50mg QD Take [address] succinate 3-15 by mouth [facility] - (TOPROL-XL) 16:58: daily. Medi [place] 50 MG 24 hr 47 Center tablet milnacipran Yes 100mg Q.5D Take [address] 100 mg Tab 3-15 mg by [facility]ukes - 16:58: mouth 2 Medical 47 (two) Center times daily. pregabalin Yes 150mg Q.[id number] Take [address] (LYRICA) 3-15 [id number] mg by Luke s - 150 MG 16:58: 3D mouth 3 Medical capsule 47 (three) Center times daily. pantoprazol Yes 40mg QD Take [address] [facility] e 3-15 by mouth [facility]ukes - (PROTONIX) 16:58: daily. Medic al 40 MG 47 Center tablet ondansetron Yes 4mg Take [address] (ZOFRAN) 4 3-15 by mouth [facility] - MG tablet 16:58: every 6 Medic al 47 (six) Center hours as needed. amLODIPine Yes 10mg QD Take [address] (NORVASC) 3-15 by mouth [facility]ukes - 10 MG 16:58: daily. Medical tablet 47 Center pravastatin Yes 20mg QD Take [address] (PRAVACHOL) 3-15 by mouth Luke s - 20 MG 16:58: daily. Medical tablet 47 Center spironolact Yes 25mg QD Take [address] one 2-24 by mouth [facility]ukes - (ALDACTONE) 00:00: daily. Medi [place] 25 MG 00 Center tablet losartan Yes 100mg QD Take [address] (COZAAR) 2-19 mg by [facility]ukes - 100 MG 00:00: mouth Medical tablet 00 daily. [place] furosemide Yes 20mg QD Take [address] (LASIX) 20 2-04 by mouth [facility] - MG tablet 00:00: daily. Medica l 00 [place] potassium Yes 20meq QD Take [address] chloride 20 2-04 mEq by [facility] - mEq TbER 00:00: mouth Medical 00 daily. [place] rOPINIRole Yes .25mg QD Take 0.[address] (REQUIP) 2-04 mg by [facility] - 0.25 MG 00:00: mouth Medical tablet 00 nightly. [place] Jardiance Yes 25mg QD Take [address] 25 mg 2-04 by mouth [facility] - tablet 00:00: every Medical 00 morning. [place] levothyroxi Yes 200ug QD Take [address] ne 2-03 mcg by [facility]ukes - (Synthroid) 00:00: mouth Medic al 200 MCG 00 daily. [place] tablet pentoxifyll 2019-02 Yes 400mg QD Take [address] ine 2-27 mg by [facility] - (TRENTAL) 00:00: mouth Medical 400 mg CR 00 daily. [place] tablet insulin 2019-02 Yes 10U Inject 10 [facility] aspart 2-08 Units [facility]ukes - U-100 00:00: subcutaneo Medica l (NovoLOG) 00 usly 3 Center 100 unit/mL (three) (3 mL) InPn times daily before meals. insulin 2019-1 Yes 60U Inject 60 [facility] degludec 2-08 Units [facility]ukes - (Tresiba 00:00: subcutaneo Med ical FlexTouch 00 usly 2 Center U-200) 200 (two) unit/mL (3 times mL) InPn daily with breakfast and dinner. phentermine 2019-0 Yes 37.5mg QD Take 37.[address] (ADIPEX-P) 8-05 mg by [facility]ukes - 37.5 mg 00:00: mouth Medical tablet 00 daily. [place] topiramate 2020-0 Yes 50mg Q.5D Take [address] (TOPAMAX) 8-05 by mouth 2 Luke s - 50 MG 00:00: (two) Medical tablet 00 times Center daily. fluticasone 2019-0 Yes 1{puff} QD Inhale 1 [facility] furoate-nayely 3-19 puff by [facility] - anteroL 00:00: mouth via Medic al (Breo 00 inhaler Center Ellipta) daily. 200-25 mcg/dose DsDv Vital Signs Vital Name Observation Time Observation Value Comments Source Systolic blood 2020-04-26 19:00:00 132 mm[Hg] [facility] Diastolic blood 2020-04-26 19:00:00 70 mm[Hg] [facility] S t [facility] Heart rate 2020-04-26 19:00:00 81 /min [facility] Respiratory rate 2020-04-26 19:00:00 20 /min [facility] Oxygen saturation in 2020-04-26 19:00:00 98 /min [facility] Arterial blood by Medical Ce nter Pulse oximetry Body temperature 2020-04-26 14:01:00 36.44 Renata [facility] Body height 2020-04-26 14:01:00 157.5 cm [facility] Body weight 2020-04-26 14:01:00 199.129 kg [facility] BMI 2020-04-26 14:01:00 80.29 kg/m2 [facility] Procedures Procedure Date / Time Performed Performing Clinician Sourc e BLOOD CULTURE 2020-04-26 17:23:00 Richard Echevarria [facility] SARS-COV2/RT-PCR (HS & 2020-04-26 17:23:00 Richard Echevarria [facility] - REF LABS) [facility] BASIC METABOLIC PANEL 2020-04-26 17:17:00 Richard Echevarria [facility] (7) [facility] CBC W/PLT COUNT & AUTO 2020-04-26 17:17:00 Richard Echevarria [facility] DIFFERENTIAL [facility] LACTIC ACID, VENOUS 2020-04-26 17:17:00 Richard Echevarria I [facility] C-REACTIVE PROTEIN 2020-04-26 17:17:00 Richard Echevarria [facility] BLOOD CULTURE 2020-04-26 17:08:00 Richard Echevarria [facility] Plan of Care Planned Activity Planned Date Details Comments Source Future Scheduled 2020-02-[address] [facility] - Test 00:00:00 (12+) [code = [facility] DEPRESSION SCREENING (12+)] Future Scheduled 2006 SHINGLES VACCINES ([address] [facility] - Test 00:00:00 of 2) [code = [facility] SHINGLES VACCINES (1 of 2)] Future Scheduled [address] - Test 00:00:00 (procedure) [code = [facility] 02150298] Future Scheduled [address] [facility] - Test 00:00:00 [facility] cervix (procedure) [code = 303798755] Future Scheduled 1975-07-17 DTAP/TDAP/TD VACCINES [facility] - Test 00:00:00 (1 - Tdap) [code = Medical C enter DTAP/TDAP/TD VACCINES (1 - Tdap)] Future Scheduled 1974 HEPATITIS C SCRE[facility]ING [facility] - Test 00:00:00 [code = HEPATITIS C Medical Center SCREENING] Future Scheduled [address] [facility] - Test 00:00:00 malignant neoplasm of [facility] breast (procedure) [code = 947333087] Future Scheduled [address] - Test 00:00:00 malignant neoplasm of [facility] colon (procedure) [code = 962293663] Encounters Start End Encounter Admission Attending Care Care Encounter Source Date/Time Date/Time Type Type Clinicians Facility Department ID 2020-05-18 2020-05-18 Telephone Gillis, [facility] [id number] 00:00:00 00:00:00 [place] [id number] [place] [id number] Professio [phone] [address] 2020-05-12 2020-05-12 Refill Gillis, [facility] [id number] 00:00:00 00:00:00 [place] [id number] [place] [id number] Professio [phone] [address] 2020-05-06 2020-05-06 Refill Gillis, [facility] [id number] 00:00:00 00:00:00 [place] [id number] [place] [id number] Professio [phone] [address] 2020-04-28 2020-04-28 Telephone Gillis, [facility] [id number] 00:00:00 00:00:00 [place] [id number] [place] [id number] Professio [phone] [address] 2020-04-21 2020-04-21 Patient Omar, [facility] [id number] 00:00:00 00:00:00 Outreach Braulio PRIMARY [id number] [facility] [id number] PAVILLION [phone] [facility] 2020-04-09 2020-04-09 Outpatient [facility] [id number] [facility] 2020-03-24 2020-03-24 Outpatient [facility] [id number] [facility] 2020-03-18 2020-03-18 Outpatient [facility] [id number] [facility] 2020-03-17 2020-03-17 Refill [facility] [id number] 00:00:00 00:00:00 [facility] [id number] [place] [id number] Professio [phone] [facility] 220 [facility] 2020-03-10 2020-03-10 Outpatient STLMLC [facility] [id number] [facility] 2020-02-20 2020-02-20 Telephone [facility] [id number] 00:00:00 00:00:00 [facility] [id number] [place] [id number] Professio [phone] [facility] 220 [facility] 2020-02-20 2020-02-20 Outpatient STLMLC [facility] [id number] [facility] 2020-02-05 2020-02-05 Outpatient [facility]LMLC [facility] [id number] [facility] 2020-02-03 2020-02-03 Outpatient [facility]LMLC [facility] [id number] [facility] 2020-02-03 2020-02-03 Outpatient [facility] [id number] [facility] 2020-02-02 2020-02-02 Outpatient [facility]ML[facility] [id number] [facility] 2020-01-28 2020-01-28 Outpatient [facility] [id number] [facility] 2020-01-27 2020-01-27 [facility] [id number] [facility] 2020-01-23 2020-01-23 [facility] [id number] 2020-01-22 2020-01-22 Orders Doctor VIRIDIANA [id number] 00:00:00 00:00:00 Only Unassigned, IVA [id number] [place] [facility] 4.2.7.2.686 [id number] [id number] 2020-01-20 2020-01-20 Office Gillis, [facility] [id number] 13:47:46 15:12:23 Visit Gregoria Ruiz [id number] [place] 4.2.7.2.686 Laurent [phone] [address] 2020-01-12 2020-01-12 [facility] [id number] [facility] 2020-01-06 2020-01-06 [facility] [id number] 2020-01-02 2020-01-02 [facility] [id number] [facility] 2019-12-26 2019-12-26 [facility] [id number] [facility] 2019-12-22 2019-12-22 [facility] [id number] [facility]00 [facility] Results Test Description Test Time Test Comments Results Result Comments Source Blood Culture - Routine (Right Venipuncture) 2020-05-01 22:0 0:00 Test Item Value Reference Range Interpretation Comme nts Result (test code = 6463-4) No growth in 5 days [facility] [id number] 22:00:00 Test Item Value Reference Range Interpretation Comments CULTURE (BEAKER) (test No growth in 5 days code = 1095) BLOOD [id number] 19:00:00 Test Item Value Reference Range Interpretation Comments CULTURE (BEAKER) (test No growth in 5 days code = 1095) SARS-CoV2/RT-PCR (Asymptomatic ONLY)2020-04-26 18:09:00 Test Item Value Reference Range Interpretation Comments SARS-COV2/RT-PCR Negative Not Detected, Performanc e of the Xpert (test code = Negative, See Xpress 02111-4) external report SARS-CoV-2/F pauline/RSV test for linked test has only bee n established in nasopharyngeal swab specimens. Use of the Xpert Xpress SARS-CoV-2/Flu/ RSV test with other spec imen types has not b een assessed and pe rformance characteristics are unknown. As wi th any molecular test, mutations withi n the targeted geneti c regions identified by t he Xpert Xpress SARS-CoV-2/Flu/ RSV test could affect pr coleman and/or probe bi nding resulting in fa ilure to detect the pres ence of virus or the vi deirdre being detected less predictably.Neg ative results do not preclude SARS-CoV-2, Inf luenza A/B, or RSV inf ection and should not be used as the sole bas is for treatment or ot her patient managem ent decisions. Res ults from the Xpert Xpres s SARS-CoV-2/Flu/ RSV test should be corre lated with the clinic al history, epidem iological data, and other data available to th e clinician evalu ating the patient. Inval id test results may occ ur from improper specim en collection; deanna lure to follow the kenneth mmended sample collecti on, handling, and s torage procedures; desean hnical error. False ne gative results may occ ur if virus is presen t at levels below th e analytical limi t of detection (LOD: 131 copies/mL). Vi ral nucleic acid ma y persist in vivo, indepe ndent of virus viability . Detection of an alyte target(s) does not imply that the corres ponding virus(es) are i nfectious or are the caus ative agents for clin ical symptoms. Rece nt patient exposur e to FluMist or ot her live attenuated infl uenza vaccines may ca use inaccurate posi tive results.This te st has been authorized by FDA under an EUA fo r use by authorized labo ratories. This test is o nly authorized for the duration of the declaration karan t circumstances e xist justifying the authorization o f emergency use o f in vitro diagnosti c tests for detection a nd/or diagnosis of CO VID-19 under Section 5 64(b)(1) of the Federal Food, Drug and Cosmet ic Act, 21 U.S.C. 360bbb-3(b)(1), unless the authorizati on is terminated or r evoked sooner. Fact Sh eet for Healthcare Prov iders: https://www.Backtrace I/O/ Documents/Xpert %20Xpress %82URAM-FgR-1-F pauline-RSV/30 2-4508%20Rev.%2 0B%20HCP% 20Fact%20Sheet. pdf Fact Sheet for Healt hcare Patients: https://www.Backtrace I/O/ Documents/Xpert %20Xpress %45JJGE-SkR-3-F pauline-RSV/30 2-4507%20Rev.%2 0B%20Pati ent%20Fact%20Sh eet.pdf SARS-COV-2 SLSL Performed at:[facility] PERFORMING LAB [place] [id number] (test code = Tan [place]ales 16187-0) [place] [address] ph: [phone] [facility] REF LABS)2020-04-26 18:09:00 Test Item Value Reference Range Interpretation Comments SARS-COV2/RT-PCR Negative Not Detected, Performanc e of the Xpert (test code = Negative, See Xpress 0054162) external report SARS-CoV-2/F pauline/RSV test for linked test has only bee n established in nasopharyngeal swab specimens. Use of the Xpert Xpress SARS-CoV-2/Flu/ RSV test with other spec imen types has not b een assessed and pe rformance characteristics are unknown. As wi th any molecular test, mutations withi n the targeted geneti c regions identified by t he Xpert Xpress SARS-CoV-2/Flu/ RSV test could affect pr coleman and/or probe bi nding resulting in fa ilure to detect the pres ence of virus or the vi deirdre being detected less predictably.Neg ative results do not preclude SARS-CoV-2, Inf luenza A/B, or RSV inf ection and should not be used as the sole bas is for treatment or ot her patient managem ent decisions. Res ults from the Xpert Xpres s SARS-CoV-2/Flu/ RSV test should be corre lated with the clinic al history, epidem iological data, and other data available to th e clinician evalu ating the patient. Inval id test results may occ ur from improper specim en collection; deanna lure to follow the kenneth mmended sample collecti on, handling, and s torage procedures; desean hnical error. False ne gative results may occ ur if virus is presen t at levels below th e analytical limi t of detection (LOD: 131 copies/mL). Vi ral nucleic acid ma y persist in vivo, indepe ndent of virus viability . Detection of an alyte target(s) does not imply that the corres ponding virus(es) are i nfectious or are the caus ative agents for clin ical symptoms. Rece nt patient exposur e to FluMist or oth er live attenuated infl uenza vaccines may ca use inaccurate posi tive results.This te st has been authorized by FDA under an EUA fo r use by authorized labo ratories. This test is o nly authorized for the duration of the declaration karan t circumstances e xist justifying the authorization o f emergency use o f in vitro diagnosti c tests for detection a nd/or diagnosis of CO VID-19 under Section 5 64(b)(1) of the Federal Food, Drug and Cosmet ic Act, 21 U.S.C. 360bbb-3(b)(1), unless the authorizati on is terminated or r evoked sooner.Fact She et for Healthcare Prov iders: https://www.Cloudadmin heid.com/ Documents/Xpert %20Xpress %04UZZI-MnH-4-F 30 2-4508%20Rev.%2 0B%20HCP% 20Fact%20Sheet. pdfFact Sheet for Healt hcare Patients: https://www.Maven [employer].O&P Pro/ Documents/Xpert %20Xpress %71GKQI-XcW-0-F 30 2-4507%20Rev.%2 0B%20Pati ent%20Fact%20Sh eet.pdf SARS-COV-2 SLSL Performed at:[facility] PERFORMING LAB [place] [id number] (test code = Maddox Jens Par Ally 5278501) [facility] [place] [address] ph: [phone] Basic Metabolic [id number] 17:46:00 Test Item Value Reference Range Interpretation Comments Sodium (test code = 141 meq/L 729-469 4655-2) Potassium (test code 4.3 meq/L 3.6-5.5 = 2823-3) Chloride (test code = 111 meq/L 98-106 H 2075-0) CO2 (test code = 23 meq/L 20-29 2028-9) BUN (test code = 26 mg/dL 10-26 3094-0) Creatinine (test code 1.00 mg/dL 0.5-1.2 = 2160-0) Glucose (test code = 127 mg/dL 70-110 H 2345-7) Calcium (test code = 8.3 mg/dL 8.5-10.5 L 74099-1) EGFR (test code = [place] [address]-6) CLINICAL DATA T O CALCULATE ESTIMATED GFR. HALEY (test code = HALEY) Guard Sergeant ID - [id number] r ID - [id number] r ID - [id number] r ID - [id number] r ID - [id number] r ID - [id number] r ID - [id number] r ID - [id number] r ID - [id number] r ID - [id number] r ID - [id number] r ID - [id number] r ID - [id number] Lab Interpretation Abnormal (test code = 44758-1) [id number] 17:46:00 Test Item Value Reference Range Interpretation Comments SODIUM (BEAKER) (test 141 meq/L 135-148 code = 381) POTASSIUM (BEAKER) 4.3 meq/L 3.6-5.5 (test code = 379) CHLORIDE (BEAKER) 111 meq/L 98-106 H (test code = 382) CO2 (BEAKER) (test 23 meq/L 20-29 code = 355) BLOOD UREA NITROGEN 26 mg/dL 10-26 (BEAKER) (test code = 354) CREATININE (BEAKER) 1.00 mg/dL 0.50-1.20 (test code = 358) GLUCOSE RANDOM 127 mg/dL 70-110 H (BEAKER) (test code = 652) CALCIUM (BEAKER) 8.3 mg/dL 8.5-10.5 L (test code = 697) EGFR (BEAKER) (test INSUFFIC IENT CLINICAL code = 1092) DATA TO CALCULA TE ESTIMATED GFR. Guard Sergeant ID - [id number] ID - [id number] ID - [id number] ID - [id number] ID - [id number] ID - [id number] ID - [id number] ID - [id number] ID - [id number] ID - [id number] ID - [id number] ID - [id number] ID - [id number]- Reactive [id number] 17:40:00 Test Item Value Reference Range Interpretation Comments CRP (test code = 676) 0.41 mg/dL 0-0.5 HALEY (test code = HALEY) Guard Sergeant ID - [id number] Lab Interpretation (test Normal code = 36622-7) [facility] [id number] 17:40:00 Test Item Value Reference Range Interpretation Comments C-REACTIVE PROTEIN (BEAKER) (test 0.41 mg/dL 0.00-0.50 code = 676) Guard Sergeant ID - [id number] acid, [id number] 17:38:00 Test Item Value Reference Range Interpretation Comments Lactate, Venous (test code 0.75 mmol/L 0.5-2 = 2922) HALEY (test code = HALEY) Guard Sergeant ID - [id number] ID - [id number] ID - [id number] ID - [id number] Lab Interpretation (test Normal code = 50654-5) [facility], [id number] 17:38:00 Test Item Value Reference Range Interpretation Comments LACTATE BLOOD 0.75 mmol/L See_Comment [Automated me ssage] VENOUS (2) (BEAKER) The syst em which (test code = 2872) generated this result transmitted ref erence range: 0.50-<2. 00. The reference range was not used to interpr et this result as normal/abnormal . Guard Sergeant ID - [id number] ID - [id number] ID - [id number] ID - [id number] with platelet count + automated [id number] 17:25:00 Test Item Value Reference Range Interpretation Comments WBC (test code = 6690-2) 10.8 See_Comment H [A utomated message] The system [employer] generated this result transmitted ref erence range: 4.0 - 10 .0 K/L. The refe rence range was not u sed to interpret this result as normal/abnor mal. RBC (test code = 789-8) 3.60 See_Comment L [Au tomated message] The system [employer] generated this result transmitted ref erence range: 4.00 - 5 .00 M/L. The refe rence range was not u sed to interpret this result as normal/abnor mal. MCHC (test code = 786-4) 30.4 See_Comment L [A utomated message] The system [employer] generated this result transmitted ref erence range: 32.0 - 3 6.0 GM/DL. The refe rence range was not u sed to interpret this result as normal/abnor mal. Hematocrit (test code = 35.2 % 36-46 L 4544-3) MCV (test code = 787-2) 97.8 fL 82-99 MCH (test code = 785-6) 29.7 pg 27-33 RDW (test code = 788-0) 14.3 % 12-15 Platelets (test code = 209 See_Comment [Aut omated message] 777-3) The system [employer] generated this result transmitted ref erence range: 150 - 43 0 K/CU MM. The referen ce range was not u sed to interpret this result as normal/abnor mal. MPV (test code = 9.7 fL 6-11.5 63497-3) nRBC (test code = 413) 0 See_Comment [Aut omated message] The system [employer] generated this result transmitted ref erence range: 0 - 0 /1 00 WBC. The refere nce range was not u sed to interpret this result as normal/abnor mal. % Neutros (test code = 81 % 429) % Lymphs (test code = 8 % 430) % Monos (test code = 7 % 431) % Eos (test code = 432) 2 % % Baso (test code = 437) 0 % # Neutros (test code = 8.72 See_Comment H [Aut omated message] 670) The system [employer] generated this result transmitted ref erence range: 1.80 - 8 .00 K/L. The refe rence range was not u sed to interpret this result as normal/abnor mal. # Lymphs (test code = 0.90 See_Comment L [Auto mated message] 414) The system [employer] generated this result transmitted ref erence range: 1.48 - 4 .50 K/L. The refe rence range was not u sed to interpret this result as normal/abnor mal. # Monos (test code = 0.73 See_Comment [Autom ated message] 415) The system [employer] generated this result transmitted ref erence range: 0.00 - 1 .30 K/L. The refe rence range was not u sed to interpret this result as normal/abnor mal. # Eos (test code = 416) 0.23 See_Comment [Au tomated message] The system [employer] generated this result transmitted ref erence range: 0.00 - 0 .50 K/L. The refe rence range was not u sed to interpret this result as normal/abnor mal. # Baso (test code = 417) 0.04 See_Comment [A utomated message] The system [employer] generated this result transmitted ref erence range: 0.00 - 0 .20 K/L. The refe rence range was not u sed to interpret this result as normal/abnor mal. Immature 2 % 0-0 H Granulocytes-Relative (test code = 2801) Lab Interpretation (test Abnormal code = 87475-9) [facility] W/PLT COUNT & AUTO [id number] 17:25:00 Test Item Value Reference Range Interpretation Comments WHITE BLOOD CELL COUNT (BEAKER) 10.8 K/ L 4.0-10.0 H (test code = 775) RED BLOOD CELL COUNT (BEAKER) 3.60 M/ L 4.00-5.00 L (test code = 761) HEMOGLOBIN (BEAKER) (test code = 10.7 GM/DL 12.0-15.5 L 410) HEMATOCRIT (BEAKER) (test code = 35.2 % 36.0-46.0 L 411) MEAN CORPUSCULAR VOLUME (BEAKER) 97.8 fL 82.0-99.0 (test code = 753) MEAN CORPUSCULAR HEMOGLOBIN 29.7 pg 27.0-33.0 (BEAKER) (test code = 751) MEAN CORPUSCULAR HEMOGLOBIN CONC 30.4 GM/DL 32.0-36.0 L (BEAKER) (test code = 752) RED CELL DISTRIBUTION WIDTH 14.3 % 12.0-15.0 (BEAKER) (test code = 412) PLATELET COUNT (BEAKER) (test 209 K/CU MM 150-430 code = 756) MEAN PLATELET VOLUME (BEAKER) 9.7 fL 6.0-11.5 (test code = 754) NUCLEATED RED BLOOD CELLS 0 /100 WBC 0-0 (BEAKER) (test code = 413) NEUTROPHILS RELATIVE PERCENT 81 % (BEAKER) (test code = 429) LYMPHOCYTES RELATIVE PERCENT 8 % (BEAKER) (test code = 430) MONOCYTES RELATIVE PERCENT 7 % (BEAKER) (test code = 431) EOSINOPHILS RELATIVE PERCENT 2 % (BEAKER) (test code = 432) BASOPHILS RELATIVE PERCENT 0 % (BEAKER) (test code = 437) NEUTROPHILS ABSOLUTE COUNT 8.72 K/ L 1.80-8.00 H (BEAKER) (test code = 670) LYMPHOCYTES ABSOLUTE COUNT 0.90 K/ L 1.48-4.50 L (BEAKER) (test code = 414) MONOCYTES ABSOLUTE COUNT (BEAKER) 0.73 K/ L 0.00-1.30 (test code = 415) EOSINOPHILS ABSOLUTE COUNT 0.23 K/ L 0.00-0.50 (BEAKER) (test code = 416) BASOPHILS ABSOLUTE COUNT (BEAKER) 0.04 K/ L 0.00-0.20 (test code = 417) IMMATURE GRANULOCYTES-RELATIVE 2 % 0-0 H PERCENT (BEAKER) (test code = 2801)
--- NOTE | 2020-05-18 16:04 | RAD REPORT ---
EXAM DESCRIPTION: RAD - Chest Single View - 05/18/2020 3:57 pm CLINICAL HISTORY: SOB Chest pain. COMPARISON: Chest Pa And Lat (2 Views) dated 03/24/2020; Chest Single View dated 03/13/2020; Chest Sin gle View dated 03/08/2020; Chest Single View dated 12/23/2019 FINDINGS: Portable technique limits examination quality. The lungs are grossly clear. The heart is upper limit normal in size. No displaced fractures.Left-robina ed PICC line has tip in the SVC. IMPRESSION: No acute intrathoracic process suspected.
[2020-05-18 16:38] LABS: Absolute Lymphocytes (CBC) 0.7 K/uL (0.7-4.9); Basophils % 0.6 % (0-1.3); Hematocrit 36.4 % (36.0-45.0); MPV 8.8 fL (7.6-11.3)
[2020-05-18 16:43] LABS: Protime INR 0.97
[2020-05-18 17:20] LABS: ALT/SGPT 39 U/L (12-78); AST/SGOT 13 U/L (15-37); Albumin 2.8 g/dL (3.4-5.0); Alkaline Phosphatase 84 U/L (45-117); BUN Blood Urea Nitrogen 24 mg/dL (7-18); Bicarbonate 23 mmol/L (21-32); Bilirubin Direct < 0.1 mg/dL (0-0.2); Bilirubin Total 0.3 mg/dL (0.2-1.0); Glucose Level 183 mg/dL (74-106); Magnesium 2.2 mg/dL (1.8-2.4); NT PRO-BNP 127 pg/mL (<125); Potassium 4.4 mmol/L (3.5-5.1); Protein, Total 6.1 g/dL (6.4-8.2); Sodium Level 143 mmol/L (136-145); Troponin (Emerg Dept Use Only) < 0.02 ng/mL (0.0-0.045)
[2020-05-18 17:21] LABS: Platelet Estimate ADEQ; White Blood Cell Scan OK (OK)
[2020-05-18 17:22] LABS: Blood Morphology Comment NOT SEEN (NOT SEEN)
--- NOTE | 2020-05-18 18:11 | RAD REPORT ---
EXAM DESCRIPTION: CT - Chest For Pe Angio - 05/18/2020 5:59 pm CLINICAL HISTORY: Chest pain. DYSPNEA COMPARISON: Chest Abd Pelvis Wo Con dated 03/17/2017 TECHNIQUE: CT angiogram of the pulmonary arteries was performed with MIP. All CT scans are performed using dose optimization technique as appropriate and may include automated exposure control or mA/KV adjustment according to patient size. FINDINGS: Small filling defects are seen in both posterior lower lobe pulmonary arterial branches macario spicious for small pulmonary emboli. Small emboli may also be present in both upper lobes medial bran ches. No acute aortic finding demonstrated. The lungs are clear. No significant pericardial or pleural fluid. No concerning bony finding. IMPRESSION: Small segmental to subsegmental branch pulmonary emboli suspected bilaterally as krzysztof estrada
--- NOTE | 2020-05-18 18:29 | EDPHYS ---
Physician Documentation [facility] Name: Kathia Phipps Age: 64 yrs Sex: Female : 1955 Arrival Date: 05/18/2020 Time: 14:44 Bed 14 Private MD: Chey Polanco ED Physician Devin Morgan HPI: 05/18 20:21 This 64 yrs old Female presents to ER via Wheelchair with complaints of kb Breathing Difficulty. 20:21 The patient has shortness of breath at rest, with light activity, while talking. Onset: kb The symptoms/episode began/occurred 1 week(s) ago. Duration: The symptoms are continuous. The patient's shortness of breath is aggravated by exertion, light activity, talking. Associated signs and symptoms: The patient has no apparent associated signs or symptoms. Severity of symptoms: At their worst the symptoms were moderate in the emergency department the symptoms are unchanged. The patient has not experienced similar symptoms in the past. The patient has not recently seen a physician. Pt reports shortness of breath on exertion started a week ago and has been getting worse. States she has been using her c-pap more and more because she has been so short of breath. Came today because it wasn't helping and she felt like she couldn't get air. Historical: - Allergies: 15:05 Latex, Natural Rubber; ll1 15:05 Morphine; ll1 15:05 PENICILLINS; ll1 15:05 Farmiga; ll1 15:05 Januvia; ll1 15:05 sitagliptin; ll1 15:05 Levaquin; ll1 15:05 Cipro PO; ll1 15:05 Farxiga; ll1 15:05 Clarithromycin; ll1 - PMHx: 15:06 chronic fatigue; vitamin d deficiency; Hypothyroidism; Sleep Apnea; dyslipidemia; ll1 Vitiligo; Hypertension; Fibromyalgia; Diabetes - IDDM; GERD; - PSHx: 15:06 Tubal ligation; ll1 - Immunization history:: Flu vaccine is up to date. - Social history:: Smoking status: Patient denies any tobacco usage or history of. ROS: 20:20 Constitutional: Negative for fever, chills, and weight loss, Cardiovascular: Negative kb for chest pain, palpitations, and edema, Abdomen/GI: Negative for abdominal pain, nausea, vomiting, diarrhea, and constipation, MS/Extremity: Negative for injury and deformity, Skin: Negative for injury, rash, and discoloration, Neuro: Negative for headache, weakness, numbness, tingling, and seizure. 20:20 Respiratory: Positive for dyspnea on exertion, shortness of breath. Exam: 20:20 Constitutional: This is a well developed, well nourished patient who is awake, alert, kb and in no acute distress. Head/Face: Normocephalic, atraumatic. Chest/axilla: Normal chest wall appearance and motion. Cardiovascular: Regular rate and rhythm with a normal S1 and S2. No gallops, murmurs, or rubs. No pulse deficits. Abdomen/GI: Soft, non-tender. No distention Skin: Warm, dry with normal turgor. Normal color. MS/ Extremity: Pulses equal, no cyanosis. Neurovascular intact. Full, normal range of motion. Neuro: Awake and alert, GCS 15, oriented to person, place, time, and situation. Moves all extremities. Normal gait. 20:20 Respiratory: mild respiratory distress is noted, moderate respiratory distress is noted, Respirations: labored breathing, Breath sounds: are clear throughout. Vital Signs: 15:01 BP 127 / 54; Pulse 92; Resp 20; Temp 97.9; Pulse Ox 91% on R/A; Weight 197.77 kg; ll1 Height 5 ft. 2 in. (157.48 cm); Pain 0/10; 15:15 sv 15:40 BP 106 / 90; Pulse 98; Resp 20; Pulse Ox 98% on 3 lpm NC; vg1 17:04 BP 119 / 53; Pulse 88; Resp 20; Pulse Ox 96% on 3 lpm NC; vg1 18:41 BP 113 / 89; Pulse 88; Resp 20; Pulse Ox 97% on 3 lpm NC; vg1 20:00 BP 115 / 60; Pulse 78; Resp 22; Temp 97.6; Pulse Ox 95% on 3 lpm NC; vg1 15:01 Body Mass Index 79.74 (197.77 kg, 157.48 cm) ll1 15:15 88-91% RA during triage sv MDM: 15:12 Patient medically screened. kb 18:26 Data reviewed: vital signs, nurses notes. Data interpreted: Pulse oximetry: on 3L(s) kb per nasal canula, is 96 %. Interpretation: normal. Counseling: I had a detailed discussion with the patient and/or guardian regarding: the historical points, exam findings, and any diagnostic results supporting the discharge/admit diagnosis, lab results, radiology results, the need for further work-up and treatment in the hospital. Physician consultation: Wily BARRETT was contacted at 18:27, regarding admission, to the telemetry unit. patient's condition, and will see patient in ED, shortly. 05/18 15:40 Order name: Basic Metabolic Panel kb 05/18 15:40 Order name: CBC with Diff; Complete Time: 17:23 kb 05/18 15:40 Order name: LFT's; Complete Time: 17:21 kb 05/18 15:40 Order name: Magnesium; Complete Time: 17:21 kb 05/18 15:40 Order name: NT PRO-BNP; Complete Time: 17:21 kb 05/18 15:40 Order name: PT-INR; Complete Time: 16:55 kb 05/18 15:40 Order name: Troponin (emerg Dept Use Only); Complete Time: 17:21 kb 05/18 15:40 Order name: Basic Metabolic Panel; Complete Time: 17:21 EDMS 05/18 15:57 Order name: Chest Single View; Complete Time: 16:08 EDMS 05/18 16:45 Order name: D-Dimer; Complete Time: 17:24 kb 05/18 17:21 Order name: CBC Smear Scan; Complete Time: 17:23 EDMS 05/18 17:46 Order name: SARS-COV-2 RT PCR; Complete Time: 17:47 EDMS 05/18 15:40 Order name: EKG; Complete Time: 15:41 kb 05/18 15:40 Order name: Cardiac monitoring; Complete Time: 16:15 kb 05/18 15:40 Order name: EKG - Nurse/Tech; Complete Time: 16:25 kb 05/18 15:40 Order name: IV Saline Lock; Complete Time: 16:15 kb 05/18 15:40 Order name: Labs collected and sent; Complete Time: 16:16 kb 05/18 15:40 Order name: O2 Per Protocol; Complete Time: 15:41 kb 05/18 15:40 Order name: O2 Sat Monitoring; Complete Time: 15:41 kb 05/18 17:24 Order name: CT Chest For PE Angio; Complete Time: 18:15 kb 05/18 19:22 Order name: CONS Physician Consult EDSD 05/18 19:22 Order name: Extrem Venous W Compress Del EDSD Administered Medications: 18:41 Drug: Lovenox (enoxaparin) 150 mg Route: Sub-Q; Site: abdomen; vg1 20:20 Follow up: Response: No adverse reaction vg1 Disposition: 05/19 07:02 Co-signature as Attending Physician, Devin Morgan MD. rn Disposition: 05/18/20 18:28 Hospitalization ordered by Raffaele Oscar for Observation. Preliminary diagnosis are Dyspnea, Pulmonary embolism. - Bed requested for Telemetry/MedSurg (observation). - Status is Observation. vg1 - Condition is Fair. - Problem is new. - Symptoms are unchanged. Signatures: Dispatcher [employer] EDSD Norah Bonilla, LIBRARY PAGE-C LIBRARY PAGE-Ckb Devin Morgan MD MD rn Garcia, Cindy, RN RN Franchesca Quintanilla RN RN 1 Shabnam Arriaza RN RN 1 Corrections: (The following items were deleted from the chart) 05/18 15:57 15:08 Chest Pa And Lat (2 Views)+RAD.RAD.BRZ ordered. EDSD EDSD 16:59 16:27 CORONAVIRUS+MR.LAB.BRZ ordered. EDSD EDSD 19:51 18:28 Hospitalization Ordered by Raffaele Oscar MD for Observation. Preliminary cg diagnosis is Dyspnea; Pulmonary embolism. Bed requested for Telemetry/MedSurg (observation). Status is Observation. Condition is Fair. Problem is new. Symptoms are unchanged. kb 20:50 19:51 05/18/2020 18:28 Hospitalization Ordered by Raffaele Oscar MD for Observation. vg1 Preliminary diagnosis is Dyspnea; Pulmonary embolism. Bed requested for Telemetry/MedSurg (observation). Status is Observation. Condition is Fair. Problem is new. Symptoms are unchanged. cg
--- NOTE | 2020-05-18 18:29 | ER ---
Nurse's Notes [facility] Name: Kathia Phipps Age: 64 yrs Sex: Female : 1955 Arrival Date: 05/18/2020 Time: 14:44 Bed 14 Private MD: Chey Polanco Diagnosis: Dyspnea;Pulmonary embolism Presentation: 05/18 15:01 Chief complaint: Patient states: SOB for 1 week, getting worse each day. No fever. SOB ll1 worsens with walking. Coronavirus screen: Client denies travel out of the [place] in the last 14 days. difficulty breathing, shortness of breath, Client presents with at least one sign or symptom that may indicate coronavirus-19. Standard/surgical mask placed on the client. Ebola Screen: Patient denies travel to an Ebola-affected area in the 21 days before illness onset. Initial Sepsis Screen: Does the patient meet any 2 criteria? HR > 90 bpm. No. Patient's initial sepsis screen is negative. Does the patient have a suspected source of infection? Yes: Other: SOB. Risk Assessment: Do you want to hurt yourself or someone else? Patient reports no desire to harm self or others. Onset of symptoms was May 12, 2020. 15:01 Method Of Arrival: Wheelchair ll1 15:01 Acuity: ISSAC 2 ll1 Historical: - Allergies: 15:05 Latex, Natural Rubber; ll1 15:05 Morphine; ll1 15:05 PENICILLINS; ll1 15:05 Farmiga; ll1 15:05 Januvia; ll1 15:05 sitagliptin; ll1 15:05 Levaquin; ll1 15:05 Cipro PO; ll1 15:05 Farxiga; ll1 15:05 Clarithromycin; ll1 - PMHx: 15:06 chronic fatigue; vitamin d deficiency; Hypothyroidism; Sleep Apnea; dyslipidemia; ll1 Vitiligo; Hypertension; Fibromyalgia; Diabetes - IDDM; GERD; - PSHx: 15:06 Tubal ligation; ll1 - Immunization history:: Flu vaccine is up to date. - Social history:: Smoking status: Patient denies any tobacco usage or history of. Screenin:41 Abuse screen: Denies threats or abuse. Nutritional screening: No deficits noted. vg1 Tuberculosis screening: No symptoms or risk factors identified. Fall Risk No fall in past 12 months (0 pts). No secondary diagnosis (0 pts). IV access (20 points). Ambulatory Aid- Crutches/Cane/Walker (15 pts). Gait- Weak (10 pts.). Mental Status- Oriented to own ability (0 pts). Total Orozco Fall Scale indicates Low Risk Score (25-44 pts). Fall prevention measures have been instituted. Side Rails Up X 2 Placed close to Nursing Station. Assessment: 15:07 Reassessment: Received VO from Dr Morgan for CXR. sv 15:37 General: Appears in no apparent distress. uncomfortable, Behavior is calm, cooperative. vg1 Pain: Complains of pain in xyphoid area and epigastric area Pain currently is 10 out of 10 on a pain scale. Neuro: Level of Consciousness is awake, alert, obeys commands, Oriented to person, place, time, situation. Cardiovascular: Patient's skin is warm and dry. Respiratory: Airway is patent Respiratory effort is even, unlabored, GI: No signs and/or symptoms were reported involving the gastrointestinal system. : No signs and/or symptoms were reported regarding the genitourinary system. EENT: No signs and/or symptoms were reported regarding the EENT system. Derm: Skin is intact, Reports cellulitis to ABD fold. Musculoskeletal: Circulation, motion, and sensation intact. 17:04 Reassessment: Patient appears in no apparent distress at this time. No changes from vg1 previously documented assessment. Patient and/or family updated on plan of care and expected duration. Pain level reassessed. Patient is alert, oriented x 3, equal unlabored respirations, skin warm/dry/pink. 18:41 Reassessment: Patient appears in no apparent distress at this time. Patient and/or vg1 family updated on plan of care and expected duration. Pain level reassessed. Patient is alert, oriented x 3, equal unlabored respirations, skin warm/dry/pink. 20:23 Reassessment: Attempted to call report. vg1 Vital Signs: 15:01 BP 127 / 54; Pulse 92; Resp 20; Temp 97.9; Pulse Ox 91% on R/A; Weight 197.77 kg; ll1 Height 5 ft. 2 in. (157.48 cm); Pain 0/10; 15:15 sv 15:40 BP 106 / 90; Pulse 98; Resp 20; Pulse Ox 98% on 3 lpm NC; vg1 17:04 BP 119 / 53; Pulse 88; Resp 20; Pulse Ox 96% on 3 lpm NC; vg1 18:41 BP 113 / 89; Pulse 88; Resp 20; Pulse Ox 97% on 3 lpm NC; vg1 20:00 BP 115 / 60; Pulse 78; Resp 22; Temp 97.6; Pulse Ox 95% on 3 lpm NC; vg1 15:01 Body Mass Index 79.74 (197.77 kg, 157.48 cm) ll1 15:15 88-91% RA during triage sv ED Course: 14:44 Patient arrived in ED. am2 14:45 Chey Polanco DO is Private Physician. am2 15:03 Triage completed. ll1 15:06 Arm band placed on. ll1 15:11 Norah Bonilla FNP-C is PHCP. kb 15:12 Devin Morgan MD is Attending Physician. kb 15:37 Franchesca Quintanilla RN is Primary Nurse. vg1 15:42 Patient has correct armband on for positive identification. Placed in gown. Bed in low vg1 position. Call light in reach. Side rails up X2. 15:57 Chest Single View In Process Unspecified. EDMS 16:16 Initial lab(s) drawn, by me, sent to lab. Accessed PICC line. vg1 16:43 COVID swab sent to lab. jp3 17:59 CT Chest For PE Angio In Process Unspecified. EDMS 18:[address]. vg1 18:12 Basic Metabolic Panel Sent. sv 18:28 Raffaele Oscar MD is Hospitalizing Provider. kb 20:42 No provider procedures requiring assistance completed. Patient admitted, IV remains in vg1 place. Administered Medications: 18:41 Drug: Lovenox (enoxaparin) 150 mg Route: Sub-Q; Site: abdomen; vg1 20:20 Follow up: Response: No adverse reaction vg1 Outcome: 18:28 Decision to Hospitalize by Provider. kb 20:42 Admitted to Tele family with patient, via stretcher, room 218, with oxygen, with chart, vg1 Report called to NICOLE Hunter 20:43 Condition: unchanged vg1 20:43 Instructed on the need for admit. 20:50 Patient left the ED. vg1 Signatures: Dispatcher [employer] EDMS Norah Bonilla, BIOMEDICAL ENGINEERING DIRECTOR-C BIOMEDICAL ENGINEERING DIRECTOR-CkKatlin Lopez, RN RN Patria Carbajal Jacob jp3 Franchesca Quintanilla, RN RN vg1 Shabnam Arriaza RN RN ll1
[2020-05-18] MEDS ORDERED: ENOXAPARIN 100 MG/ML SYR SQ ONE (18:47)
[2020-05-18] MEDS ORDERED: ENOXAPARIN 60 MG/0.6 ML SQ ONE ×2 (18:48→18:52)
--- NOTE | 2020-05-18 20:31 | P.HP ---
Certification for Inpatient Patient admitted to: Inpatient With expected LOS: >2 Midnights Patient will require the following post-hospital care: None Practitioner: I am a practitioner with admitting privileges, knowledge of patient current condition, hospital course, and medical plan of care. Services: Services provided to patient in accordance with Admission requirements found in Title 42 Section 412.3 of the Code of Federal Regulations <Wily Evans Jitendra - Last Filed: 05/18/20 23:36> Patient History Date of Service: 05/18/20 Primary Care Provider: Landon Reason for admission: PE History of Present Illness: Ms. Phipps is a 64 yo obese F with DM, HLD, HTN, SCUOT on BiPAP, fibromyalgia, hypothyroidism here today with 1 week of progressively worsening SOB, ROGER. She reports cough, night sweats, chills, bilateral leg swelling. She denies chest pain, hemoptysis, recent surgery or hospitalizations, recent diagnosis of cancer, recent trauma, smoking, or travel. She says 6 years ago she was told she had a clot in her leg. D dimer 3838. BNP 127. CTPE found small segmental to subsegmental branch pulmonary emboli bilaterally. CXR showed no acute intrathoracic process. Venous ultrasound was quite limited and was difficult to exclude DVT in the right femoral vein. - Past Medical/Surgical History Diabetic: Yes -: DM -: HTN -: Hypothyroidism -: Morbid obesity -: Gerd -: Fibromyalgia -: Depression -: COPD -: dyslipidemia -: chronic fatigue -: sleep apnea -: R Heel spur repair -: Tubal ligation Psychosocial/ Personal History: She is and lives at home. She has 3 children - Family History Father -: Heart disease, Hypertension, Diabetes, Stroke Notes: STELLA'S DISEASE. Mother -: Heart disease, Cancer Notes: MYASTENIA GRAVIS. breast ca. still living - Social History Smoking Status: Never smoker Alcohol use: No CD- Drugs: No Caffeine use: No Place of Residence: Home <Wily Evans - Last Filed: 05/18/20 23:36> Date of Service: 05/18/20 <Raffaele Oscar - Last Filed: 05/20/20 10:41> Allergies dapagliflozin [From [facility]] Allergy (Verified 05/18/20 22:47) Nausea/Vomiting latex Allergy (Verified 09/22/17 11:05) Hives/Rash levofloxacin Allergy (Verified 05/18/20 22:47) Hives/Rash morphine Allergy (Verified 09/22/17 11:05) Hallucination Penicillins Allergy (Verified 12/24/19 01:51) Shortness of breath sitagliptin [From Januvia] Allergy (Verified 12/24/19 02:00) Shortness of breath vancomycin Allergy (Verified 03/11/20 20:49) Shortness of breath ciprofloxacin Adverse Reaction (Verified 05/18/20 22:47) Anaphylaxis clarithromycin Adverse Reaction (Verified 05/18/20 22:47) Shortness of breath Home Medications: Amlodipine Besylate 10 mg PO DAILY 05/18/20 Doxazosin [Cardura*] 1 mg PO BEDTIME 05/18/20 Empagliflozin [Jardiance] 25 mg PO DAILY 05/18/20 Fluticasone/Vilanterol [Breo Ellipta 100-25 Mcg INH] 25 mg IN DAILY 05/18/20 Furosemide [Lasix*] 20 mg PO DAILY 05/18/20 Insulin Aspart [Novolog Flexpen] 10 units SQ TID 05/18/20 Insulin Degludec [Tresiba Flextouch U-100] 60 units SQ BID 05/18/20 Ketoconazole/Niacinamide [Ketoconazole 2%-Niacin 4% Crm] 1 anuel DAILY 05/18/20 Levothyroxine Sodium [Synthroid] 200 mcg PO DAILY 05/18/20 Losartan Potassium [Cozaar] 100 mg PO DAILY 05/18/20 Metoprolol Succinate [Toprol Xl*] 50 mg PO BEDTIME 05/18/20 Milnacipran HCl [Savella] 100 mg PO BID 05/18/20 Pentoxifylline 400 mg PO DAILY 05/18/20 Potassium Oral Tab [Klor-Con 10 mEq Tab*] 20 meq PO DAILY 05/18/20 Pregabalin [Lyrica] 150 mg PO TID* 05/18/20 Ropinirole HCl [Requip*] 0.25 mg PO BEDTIME 05/18/20 Silver Sulfadiazine [Ssd] 1 anuel DAILY 05/18/20 Spironolactone [Aldactone*] 25 mg PO DAILY 05/18/20 Topiramate [Topiramate ER] 1 tab PO BID 05/18/20 Vit D3/Vit K2/Calc Frutoborate [Move Free [id number]] 2 tab PO DAILY 05/18/20 Review of Systems General: Chills, Sweats, As per HPI Eyes: Unremarkable ENT: Unremarkable Respiratory: Shortness of Breath, SOB with Excertion, As per HPI Cardiovascular: Edema, As per HPI Gastrointestinal: Unremarkable Genitourinary: Unremarkable Musculoskeletal: Unremarkable Integumentary: Unremarkable Neurological: Unremarkable Lymphatics: Unremarkable <Wily Evans - Last Filed: 05/18/20 23:36> Physical Examination - Physical Exam General: Alert, In no apparent distress, Oriented x3, Cooperative, Other (labored speech) HEENT: Atraumatic, Normocephalic, PERRLA, Mucous membr. moist/pink, EOMI, Sclerae nonicteric Neck: Supple, 2+ carotid pulse no bruit, JVD not distended, No Thyromegaly, No LAD Respiratory: Diminished Cardiovascular: Normal pulses, Regular rate/rhythm, Normal S1 S2, No gallops, No rubs, No murmurs, Other (3+ pitting edema bilaterally ), Edema Capillary refill: <2 Seconds Gastrointestinal: Normal bowel sounds, Soft and benign, Non-distended, No ascites, No tenderness, No masses, No rebound, No guarding Musculoskeletal: No clubbing, No swelling, No contractures, No erythema, No tenderness, No warmth Integumentary: No breakdown, No significant lesion, No tenderness/swelling, No erythema, No warmth, No cyanosis, Rash(es), Other (pannus stomach with recurrent skin infections ) Neurological: Normal strength at 5/5 x4 extr, Normal tone, Sensation intact, Cranial nerves 3-12 intact, Normal affect, Abnormal gait, Abnormal speech Lymphatics: No axilla or inguinal lymphadenopathy - Studies Laboratory Data (last 24 hrs) 05/18/20 16:14: PT 11.2, INR 0.97 05/18/20 16:14: WBC 9.10, Hgb 11.5 L, Hct 36.4, Plt Count 165 05/18/20 16:14: Sodium 143, Potassium 4.4, BUN 24 H, Creatinine 1.04, Glucose 183 H, Magnesium 2.2, Total Bilirubin 0.3, AST 13 L, ALT 39, Alkaline Phosphat ase 84 <Wily Evans S - Last Filed: 05/18/20 23:36> Assessment and Plan - Problems (Diagnosis) (1) SCOUT treated with BiPAP Current Visit: Yes Status: Chronic (2) Bilateral pulmonary embolism Current Visit: Yes Status: Acute (3) Morbid obesity with BMI of 70 and over, adult Current Visit: No Status: Chronic (4) Type 2 diabetes mellitus Current Visit: No Status: Chronic Qualifiers: Diabetes mellitus retirement insulin use: without retirement use Diabetes mellitus complication status: with kidney complications Diabetes mellitus complication detail: with chronic kidney disease Chronic kidney disease stage: stage 3 (moderate) Chronic kidney disease stage 3 subtype: stage 3a (GFR 45- 59) Qualified Code(s): E11.22 - Type 2 diabetes mellitus with diabetic chronic kidney disease; N18.31 - Chronic kidney disease, stage 3a (5) Vitiligo Current Visit: No Status: Chronic (6) Fibromyalgia Onset Date: 09/24/17 Current Visit: No Status: Chronic (7) Hyperlipidemia Current Visit: No Status: Chronic Qualifiers: Hyperlipidemia type: unspecified (8) Hypertension Onset Date: 09/24/17 Current Visit: No Status: Chronic Qualifiers: Hypertension type: essential hypertension (9) Hypothyroidism Onset Date: 09/24/17 Current Visit: No Status: Chronic Qualifiers: Hypothyroidism type: unspecified (10) PVD (peripheral vascular disease) Current Visit: No Status: Chronic - Plan pulm and respiratory therapy consulted, daily room air sats eliquis 10mg BID for PE, ABG pending, breathing treatments as needed patient desats when mobile but is refusing morgan catheter so will continue with bedside commode venous doppler U/S inconclusive, CTPE positive for clots BiPAP at bedtime for SCOUT sliding scale insulin and accuchecks for DM, dietitian consult for BMI blood pressure has been controlled, will hold BP medications for now will restart levothyroxine, may have to increase dose based on TSH wound care consulted for ongoing skin infections on abdomen BNP 127, 3+ pitting edema bilaterally on exam, will continue home lasix and spironolactone and continue to monitor will reconcile and restart other home medications Discharge Plan: Home Plan to discharge in: 48 Hours - Advance Directives Does patient have a Living Will: No Does patient have a Durable POA for Healthcare: No - Code Status/Comfort Care Code Status Assessed: Yes (full code) Critical Care: No Time Spent Managing Pts Care (In Minutes): 70 <Wily Evans - Last Filed: 05/18/20 23:36> Date of Service: 05/19/20 Chart was reviewed. Agree with plan of care as mentioned above. Patient has a PICC line and this needs to be evaluated for possible DVT. <Raffaele Oscar - Last Filed: 05/20/20 10:41>
--- NOTE | 2020-05-18 20:59 | RAD REPORT ---
EXAM DESCRIPTION: US - Extrem Venous W Compress Del - 05/18/2020 8:21 pm CLINICAL HISTORY: leg pain and swelling Bilateral leg edema and swelling. COMPARISON: Extrem Venous W Compress Del dated 12/23/2019 TECHNIQUE: Real-time sonographic interrogation of the left and right lower extremity deep venous sys tems was performed. FINDINGS: The exam is quite limited due to the patient's body habitus and difficulty with movement. Limited views of lower extremity venous system were obtained. Superficial femoral vein on the right proximal to distal femoral vein shows partial comparison. It is difficult to exclude DVT in this region. Elsewhere, no evidence of DVT seen bilaterally. IMPRESSION: The examination is quite limited and is difficult to exclude DVT in the right femoral ve in.
[2020-05-18 21:19] VITALS: BMI 79.2
[2020-05-18] MEDS ORDERED: ACETAMINOPHEN 500 MG TAB PO PRN (21:31)
[2020-05-18] MEDS: INSULIN -REGULAR HUMAN 50 UNIT/0.5 ML ML SQ SCH (21:31)
[2020-05-18] MEDS ORDERED: ONDANSETRON 4 MG/2 ML VIAL IV PRN (21:31)
[2020-05-18] MEDS ORDERED: ALBUTEROL 2.5 MG/3 ML NEB SOL NEB PRN (21:31)
[2020-05-18 22:42] LABS: Thyroid Stimulating Hormone 0.179 uIU/mL (0.360-3.740)
[2020-05-19 01:03] LABS: Urine Appearance CLEAR (Clear); Urine Bilirubin NEGATIVE (Negataive); Urine Blood NEGATIVE (Negative); Urine Color YELLOW (Yellow); Urine Glucose 3+ (Negative); Urine Protein NEGATIVE (Negative); Urine Specific Gravity >=1.030 (1.005-1.030)
[2020-05-19] MEDS: TRAMADOL HCL 50 MG TAB PO PRN ×3 (01:16→22:40)
[2020-05-19 01:29] LABS: Urine Microscopic Reflex NO UMIC
[2020-05-19] MEDS: APIXABAN 5 MG TABLET PO SCH ×2 (05:01→08:29)
[2020-05-19] MEDS: LEVOTHYROXINE SOD 0.1 MG TAB PO SCH (05:01)
[2020-05-19 05:12] LABS: Absolute Lymphocytes (CBC) 1.3 K/uL (0.7-4.9); Basophils % 0.7 % (0-1.3); Hematocrit 34.6 % (36.0-45.0); Lymphocytes % 12.3 % (15.3-44.8); MPV 8.8 fL (7.6-11.3); RBC Red Blood Cell Count 3.77 M/uL (3.86-4.86)
[2020-05-19 05:24] LABS: Albumin 2.8 g/dL (3.4-5.0); Bilirubin Total 0.4 mg/dL (0.2-1.0); Magnesium 2.3 mg/dL (1.8-2.4); Potassium 3.8 mmol/L (3.5-5.1); Protein, Total 6.2 g/dL (6.4-8.2)
[2020-05-19 05:34] LABS: Arterial Blood Carboxyhemoglob 1.1 % (0-1.5); Blood Gas Oxyhemoglobin 93.4 % (94-97); Blood O2 Saturation 95.5 % (92-98.5)
[2020-05-19] MEDS: INSULIN -REGULAR HUMAN 50 UNIT/0.5 ML ML SQ SCH ×4 (07:30→20:31)
[2020-05-19] MEDS: SPIRONOLACTONE 25 MG TABLET PO SCH (08:28)
[2020-05-19] MEDS: FUROSEMIDE 20 MG TABLET PO SCH (08:28)
[2020-05-19] MEDS: PENTOXIFYLLINE ER 400 MG TAB PO SCH (08:28)
--- NOTE | 2020-05-19 08:43 | P.CNS ---
Date of Consult: 05/19/20 Reason for Consult: Pulmonary embolus Primary Care Provider: Landon Chief Complaint: PE History of Present Illness: Patient is 64 years of age had progressive dyspnea for the past week came here to the emergency room was found to have bilateral pulmonary emboli will complaining of shortness of breath mild lower extremity edema patient is morbidly obese does not smoke history of sleep apnea Allergies dapagliflozin [From Farxiga] Allergy (Verified 05/18/20 22:47) Nausea/Vomiting latex Allergy (Verified 09/22/17 11:05) Hives/Rash levofloxacin Allergy (Verified 05/18/20 22:47) Hives/Rash morphine Allergy (Verified 09/22/17 11:05) Hallucination Penicillins Allergy (Verified 12/24/19 01:51) Shortness of breath sitagliptin [From Januvia] Allergy (Verified 12/24/19 02:00) Shortness of breath vancomycin Allergy (Verified 03/11/20 20:49) Shortness of breath ciprofloxacin Adverse Reaction (Verified 05/18/20 22:47) Anaphylaxis clarithromycin Adverse Reaction (Verified 05/18/20 22:47) Shortness of breath Home Medications: Amlodipine Besylate 10 mg PO DAILY 05/18/20 Doxazosin [Cardura*] 1 mg PO BEDTIME 05/18/20 Empagliflozin [Jardiance] 25 mg PO DAILY 05/18/20 Fluticasone/Vilanterol [Breo Ellipta 100-25 Mcg INH] 25 mg IN DAILY 05/18/20 Furosemide [Lasix*] 20 mg PO DAILY 05/18/20 Insulin Aspart [Novolog Flexpen] 10 units SQ TID 05/18/20 Insulin Degludec [Tresiba Flextouch U-100] 60 units SQ BID 05/18/20 Ketoconazole/Niacinamide [Ketoconazole 2%-Niacin 4% Crm] 1 anuel DAILY 05/18/20 Levothyroxine Sodium [Synthroid] 200 mcg PO DAILY 05/18/20 Losartan Potassium [Cozaar] 100 mg PO DAILY 05/18/20 Metoprolol Succinate [Toprol Xl*] 50 mg PO BEDTIME 05/18/20 Milnacipran HCl [Savella] 100 mg PO BID 05/18/20 Pentoxifylline 400 mg PO DAILY 05/18/20 Potassium Oral Tab [Klor-Con 10 mEq Tab*] 20 meq PO DAILY 05/18/20 Pregabalin [Lyrica] 150 mg PO TID* 05/18/20 Ropinirole HCl [Requip*] 0.25 mg PO BEDTIME 05/18/20 Silver Sulfadiazine [Ssd] 1 anuel DAILY 05/18/20 Spironolactone [Aldactone*] 25 mg PO DAILY 05/18/20 Topiramate [Topiramate ER] 1 tab PO BID 05/18/20 Vit D3/Vit K2/Calc Frutoborate [Move Free [id number]] 2 tab PO DAILY 05/18/20 - Past Medical/Surgical History Diabetic: Yes -: DM -: HTN -: Hypothyroidism -: Morbid obesity -: Gerd -: Fibromyalgia -: Depression -: COPD -: dyslipidemia -: chronic fatigue -: sleep apnea -: R Heel spur repair -: Tubal ligation Psychosocial/ Personal History: She is and lives at home. She has 3 children - Family History Father Medical History: Heart disease, Hypertension, Diabetes, Stroke Notes: STELLA'S DISEASE. Mother Medical History: Heart disease, Cancer Notes: MYASTENIA GRAVIS. breast ca. still living - Social History Smoking Status: Never smoker Alcohol use: No CD- Drugs: No Caffeine use: No Place of Residence: Home Review of Systems 10-point ROS is otherwise unremarkable General: Weakness Respiratory: Shortness of Breath Cardiovascular: Edema Physical Examination Temp Pulse Resp BP Pulse Ox 97.6 F 88 19 133/65 97 05/19/20 04:00 05/19/20 04:00 05/19/20 04:00 05/19/20 04:00 05/19/20 04:00 General: Alert, Oriented x3, Moderate distress, Obese Respiratory: Clear to auscultation bilaterally, Diminished Cardiovascular: Normal S1 S2, Edema Gastrointestinal: Normal bowel sounds, Soft and benign Laboratory Data (last 24 hrs) 05/18/20 16:14: PT 11.2, INR 0.97 05/18/20 16:14: WBC 9.10, Hgb 11.5 L, Hct 36.4, Plt Count 165 05/18/20 16:14: Sodium 143, Potassium 4.4, BUN 24 H, Creatinine 1.04, Glucose 183 H, Magnesium 2.2, Total Bilirubin 0.3, AST 13 L, ALT 39, Alkaline Phosphatase 84 - Problems (1) Bilateral pulmonary embolism Current Visit: Yes Status: Acute Plan: Patient is 64 years of age admitted with pulmonary embolism morbidly obese history of sleep apnea change to Xarelto 15 mg twice a day she will need lifelong anticoagulation therapy there is no evidence of volume overload patient takes a bronchodilator at home blood gases satisfactory will evaluate for home O2 possible discharge tomorrow on lifelong anticoagulation Xarelto 15 mg twice a day for 3 weeks then 20 mg once a day
[2020-05-19] MEDS: SILVER SULFADIAZINE 1% 50 GM TOP SCH (09:00)
[2020-05-19] MEDS: KETOCONAZOLE 2% TOP SCH (09:00)
[2020-05-19] MEDS ORDERED: HOME MED 1 EA UNK (Levothyroxine Sodium [Synthroid] 200 MCG Tablet) PO SCH (09:00)
[2020-05-19] MEDS ORDERED: POTASSIUM CL SA 10 MEQ TAB PO ONE (09:00)
[2020-05-19] MEDS: RIVAROXABAN 15 MG TABLET PO SCH ×2 (09:00→20:47)
[2020-05-19] MEDS: NIACIN TOP SCH (09:00)
--- NOTE | 2020-05-19 12:49 | EKG ---
Test Date: 2020-05-18 Test Time: 16:23:01 Missile Mechanic: VINEET MEASUREMENT RESULTS: Intervals: Rate: 87 SD: 156 QRSD: 82 QT: 384 QTc: 462 [place]: P: 57 SD: 156 QRS: 14 T: 71 INTERPRETIVE STATEMENTS: Normal sinus rhythm Low voltage QRS Borderline ECG Compared to ECG 03/08/2020 18:11:59 No significant changes Electronically Signed On 05-19-20 12:45:37 CDT by Edilberto Hernandez
--- NOTE | 2020-05-19 17:39 | RAD REPORT ---
EXAM DESCRIPTION: US - UPPER EXTREMITY VENOUS UNILATE - 05/19/2020 5:24 pm CLINICAL HISTORY: Left arm pain and swelling COMPARISON: None. TECHNIQUE: Real-time sonographic evaluation of the left upper extremity deep venous systems was perf ormed. FINDINGS: Exam is limited due to patient body habitus and severity of patient pain. Not all veins of the left upper extremity could be fully evaluated. The left brachial vein could not be compressed. On Doppler evaluation no blood flow could be demonstr ated through this vein. More proximally the axillary vein appears patent. No jugular or subclavian th rombus was identifiable. PICC line is in the cephalic vein and shows no suspicious finding. IMPRESSION: Left upper extremity acute deep venous thrombosis involving the left brachial vein. No other DVT findings. No PICC line abnormality evident. Exam is limited due to body habitus affects and severity of patient pain.
[2020-05-19] MEDS: ROPINIROLE HCL 0.25 MG TAB PO SCH (20:47)
[2020-05-20 04:52] LABS: Phosphorus 2.9 mg/dL (2.5-4.9); Potassium 3.7 mmol/L (3.5-5.1)
[2020-05-20] MEDS: LEVOTHYROXINE SOD 0.1 MG TAB PO SCH (05:31)
[2020-05-20] MEDS: INSULIN -REGULAR HUMAN 50 UNIT/0.5 ML ML SQ SCH ×4 (07:24→21:00)
[2020-05-20] MEDS: FUROSEMIDE 20 MG TABLET PO SCH (08:37)
[2020-05-20] MEDS: RIVAROXABAN 15 MG TABLET PO SCH ×2 (08:37→20:58)
[2020-05-20] MEDS: PENTOXIFYLLINE ER 400 MG TAB PO SCH (08:37)
[2020-05-20] MEDS: TRAMADOL HCL 50 MG TAB PO PRN ×2 (08:38→17:13)
[2020-05-20] MEDS: SPIRONOLACTONE 25 MG TABLET PO SCH (08:39)
[2020-05-20] MEDS: NIACIN TOP SCH (08:42)
[2020-05-20] MEDS: KETOCONAZOLE 2% TOP SCH (08:42)
[2020-05-20] MEDS ORDERED: POTASSIUM CL SA 10 MEQ TAB PO ONE (09:00)
[2020-05-20] MEDS: SILVER SULFADIAZINE 1% 50 GM TOP SCH (09:00)
--- NOTE | 2020-05-20 10:53 | P.PN ---
Subjective Date of Service: 05/19/20 Subjective: No new changes, No C/O voiced, Improving Review of Systems 10-point ROS is otherwise unremarkable Physical Examination - Vital Signs Temperature: 97.8 F Blood Pressure: 141/75 Pulse: 89 Respirations: 18 Pulse Ox (%): 93 - Physical Exam General: Alert, In no apparent distress, Oriented x3 Respiratory: Clear to auscultation bilaterally, Normal air movement Cardiovascular: Regular rate/rhythm, Normal S1 S2, No murmurs Gastrointestinal: Normal bowel sounds, Soft and benign, Non-distended, No tenderness Musculoskeletal: No clubbing, No swelling, No tenderness Neurological: Sensation intact, Cranial nerves 3-12 intact - Studies Medications List Reviewed: Yes Assessment & Plan - Problems (Diagnosis) (1) Deep vein thrombosis, upper right extremity Current Visit: Yes Status: Acute (2) Bilateral pulmonary embolism Current Visit: Yes Status: Acute (3) SCOUT treated with BiPAP Current Visit: Yes Status: Chronic - Plan 1. Continue with anti coagulation 2. If no longer using PICC line will remove it 3. Long-term anti coagulation in follow with Pulmonary 4. Anticipate discharge home later today 5. GI and DVT prophylaxis Discharge Plan: Home Plan to discharge in: Greater than 2 days - Advance Directives Does patient have a Living Will: No Does patient have a Durable POA for Healthcare: No - Code Status/Comfort Care Code Status Assessed: Yes Code Status: Full Code Critical Care: No Time Spent Managing PTS Care (In Minutes): 35
[2020-05-20] MEDS: ROPINIROLE HCL 0.25 MG TAB PO SCH (20:58)
[2020-05-21] MEDS ORDERED: NAPROXEN 250 MG TAB PO ONE (00:25)
[2020-05-21 05:09] LABS: Potassium 4.1 mmol/L (3.5-5.1)
[2020-05-21] MEDS: LEVOTHYROXINE SOD 0.1 MG TAB PO SCH (05:35)
[2020-05-21 05:59] VITALS: O2SAT 97
[2020-05-21] MEDS: INSULIN -REGULAR HUMAN 50 UNIT/0.5 ML ML SQ SCH ×2 (07:30→11:17)
[2020-05-21] MEDS: NIACIN TOP SCH (09:00)
[2020-05-21] MEDS: SPIRONOLACTONE 25 MG TABLET PO SCH (09:00)
[2020-05-21] MEDS: KETOCONAZOLE 2% TOP SCH (09:00)
[2020-05-21] MEDS: SILVER SULFADIAZINE 1% 50 GM TOP SCH (09:00)
[2020-05-21] MEDS: FUROSEMIDE 20 MG TABLET PO SCH (09:00)
[2020-05-21] MEDS: TRAMADOL HCL 50 MG TAB PO PRN (09:43)
[2020-05-21] MEDS: RIVAROXABAN 15 MG TABLET PO SCH (09:44)
[2020-05-21] MEDS: PENTOXIFYLLINE ER 400 MG TAB PO SCH (09:44)
[2020-05-21 13:22] VITALS: BP 139/67; TEMP 98.2
--- NOTE | 2020-05-26 23:44 | P.PN ---
Date of Service: 05/20/20 Subjective Subjective: Patient is doing much better. Clinically the patient appears to be doing well. DC the PICC line. Continue anticoagulation for 6-12 weeks. Review of Systems 10-point ROS is otherwise unremarkable Physical Examination - Vital Signs Reviewed - Physical Exam General: Alert, In no apparent distress, Oriented x3 Respiratory: Clear to auscultation bilaterally, Normal air movement Cardiovascular: Regular rate/rhythm, Normal S1 S2, No murmurs Gastrointestinal: Normal bowel sounds, Soft and benign, Non-distended, No tenderness Musculoskeletal: No clubbing, No swelling, No tenderness Neurological: Sensation intact, Cranial nerves 3-12 intact Assessment & Plan - Problems (Diagnosis) (1) Deep vein thrombosis, upper right extremity Current Visit: Yes Status: Acute (2) Bilateral pulmonary embolism Current Visit: Yes Status: Acute (3) SCOUT treated with BiPAP Current Visit: Yes Status: Chronic - Plan 1. Continue with anti coagulation 2. Remove PICC line 3. Long-term anti coagulation & follow with Pulmonary; arrange for home oxygen 4. Anticipate discharge home later today 5. GI and DVT prophylaxis
--- NOTE | 2020-05-26 23:46 | P.DS ---
Discharge Date: 05/21/20 Primary Care Provider: Landon Disposition: ROUTINE DISCHARGE Discharge Condition: GOOD Reason for Admission: PE - Problems (1) Deep vein thrombosis, upper right extremity Status: Acute (2) Bilateral pulmonary embolism Status: Acute (3) SCOUT treated with BiPAP Status: Chronic Brief History of Present Illness: Ms. Phipps is a 64 yo obese F with DM, HLD, HTN, SCOUT on BiPAP, fibromyalgia, hypothyroidism here today with 1 week of progressively worsening SOB, ROGER. She reports cough, night sweats, chills, bilateral leg swelling. She denies chest pain, hemoptysis, recent surgery or hospitalizations, recent diagnosis of cancer, recent trauma, smoking, or travel. She says 6 years ago she was told she had a clot in her leg. D dimer 3838. BNP 127. CTPE found small segmental to subsegmental branch pulmonary emboli bilaterally. CXR showed no acute intrathoracic process. Venous ultrasound was quite limited and was difficult to exclude DVT in the right femoral vein. Hospital Course: Patient has been doing well during hospital stay. Patient will be on anticoagulation. We will also arrange for a low oxygen. At this time, patient is stable for discharge home with outpatient follow up. Vital Signs/Physical Exam: Temp Pulse Resp BP Pulse Ox 98.2 F 89 20 139/67 96 05/21/20 12:00 05/21/20 12:00 05/21/20 12:00 05/21/20 12:00 05/21/20 12:00 General: Alert, In no apparent distress, Oriented x3 Laboratory Data at Discharge: WBC 10.90 K/uL (4.3-10.9) D 05/19/20 04:30 Hgb 11.4 g/dL (12.0-15.0) L 05/19/20 04:30 Hct 34.6 % (36.0-45.0) L 05/19/20 04:30 Plt Count 170 K/uL (152-406) 05/19/20 04:30 PT 11.2 SECONDS (9.5-12.5) 05/18/20 16:14 INR 0.97 05/18/20 16:14 Sodium 144 mmol/L (136-145) 05/21/20 04:36 Potassium 4.1 mmol/L (3.5-5.1) 05/21/20 04:36 BUN 10 mg/dL (7-18) 05/21/20 04:36 Creatinine 0.84 mg/dL (0.55-1.3) 05/21/20 04:36 Glucose 137 mg/dL (74-106) H 05/21/20 04:36 Phosphorus 2.9 mg/dL (2.5-4.9) 05/20/20 04:30 Magnesium 2.3 mg/dL (1.8-2.4) 05/19/20 04:30 Total Bilirubin 0.4 mg/dL (0.2-1.0) 05/19/20 04:30 AST 13 U/L (15-37) L 05/19/20 04:30 ALT 39 U/L (12-78) 05/19/20 04:30 Alkaline Phosphatase 67 U/L (45-117) 05/19/20 04:30 Home Medications: Amlodipine Besylate 10 mg PO DAILY 05/18/20 Doxazosin [Cardura*] 1 mg PO BEDTIME 05/18/20 Empagliflozin [Jardiance] 25 mg PO DAILY 05/18/20 Fluticasone/Vilanterol [Breo Ellipta 100-25 Mcg INH] 25 mg IN DAILY 05/18/20 Furosemide [Lasix*] 20 mg PO DAILY 05/18/20 Insulin Aspart [Novolog Flexpen] 10 units SQ TID 05/18/20 Insulin Degludec [Tresiba Flextouch U-100] 60 units SQ BID 05/18/20 Ketoconazole/Niacinamide [Ketoconazole 2%-Niacin 4% Crm] 1 anuel DAILY 05/18/20 Levothyroxine Sodium [Synthroid] 200 mcg PO DAILY 05/18/20 Losartan Potassium [Cozaar] 100 mg PO DAILY 05/18/20 Metoprolol Succinate [Toprol Xl*] 50 mg PO BEDTIME 05/18/20 Milnacipran HCl [Savella] 100 mg PO BID 05/18/20 Pentoxifylline 400 mg PO DAILY 05/18/20 Potassium Oral Tab [Klor-Con 10 mEq Tab*] 20 meq PO DAILY 05/18/20 Pregabalin [Lyrica] 150 mg PO TID* 05/18/20 Ropinirole HCl [Requip*] 0.25 mg PO BEDTIME 05/18/20 Silver Sulfadiazine [Ssd] 1 anuel DAILY 05/18/20 Spironolactone [Aldactone*] 25 mg PO DAILY 05/18/20 Topiramate [Topiramate ER] 1 tab PO BID 05/18/20 Vit D3/Vit K2/Calc Frutoborate [Move Free Hvefk-Dagftl-U6-D3] 2 tab PO DAILY 05/18/20 Rivaroxaban [Xarelto] 1 each PO DAILY #1 tab.ds.pk 05/20/20 Rivaroxaban [Xarelto] 20 mg PO DAILY #30 tab 05/20/20 New Medications: Rivaroxaban [Xarelto] 1 each PO DAILY #1 tab.ds.pk Rivaroxaban [Xarelto] 20 mg PO DAILY #30 tab Physician Discharge Instructions: OK TO DC IV AND DC HOME FOLLOW-UP WITH PRIMARY CARE PROVIDER IN 1-2 WEEKS FOLLOW-UP WITH Student Counselor IN 1-2 WEEKS RETURN TO THE ER IF symptoms worsen CALL or TEXT DR. MENA AT [phone] IF ANY QUESTIONS REGARDING HOSPITAL STAY. PLEASE CALL THE FLOOR AT [phone] IF ANY MEDICATION OR NURSING QUESTIONS. Diet: AHA Activity: Fall precautions Followup: Chey Polanco DO [Primary Care Provider] - Time spent managing pt's care (in minutes): 35
== END 2020-05-21 15:05 | disposition home or self-care (01) | DRG 176 ==
LOC: ER 14:43 → ERHOLD 19:21 → 2ND 20:42
PROVIDERS: ADMIT Hospitalist; ATTEND Hospitalist
PROC: 5A09457 Assistance with Respiratory Ventilation, 24-96 Consecutive Hours, Continuous Positive Airway Pressure (ICD-10-PCS; principal; 2020-05-18)
DX: I26.99 Other pulmonary embolism without acute cor pulmonale (principal); I82.411 Acute embolism and thrombosis of right femoral vein; Z68.45 Body mass index [BMI] 70 or greater, adult; E66.01 Morbid (severe) obesity due to excess calories; K21.9 Gastro-esophageal reflux disease without esophagitis; G47.33 Obstructive sleep apnea (adult) (pediatric); J44.9 Chronic obstructive pulmonary disease, unspecified; I12.9 Hypertensive chronic kidney disease with stage 1 through stage 4 chronic kidney disease, or unspecified chronic kidney disease; N18.30 Chronic kidney disease, stage 3 unspecified; E11.22 Type 2 diabetes mellitus with diabetic chronic kidney disease; E11.51 Type 2 diabetes mellitus with diabetic peripheral angiopathy without gangrene; E03.9 Hypothyroidism, unspecified; L80 Vitiligo; E78.5 Hyperlipidemia, unspecified; M79.7 Fibromyalgia; Z79.899 Other long term (current) drug therapy; Z88.5 Allergy status to narcotic agent; Z88.0 Allergy status to penicillin; Z88.8 Allergy status to other drugs, medicaments and biological substances; Z79.4 Long term (current) use of insulin; Z88.1 Allergy status to other antibiotic agents; Z79.01 Long term (current) use of anticoagulants; Z91.040 Latex allergy status; Z98.51 Tubal ligation status; Z20.822 Contact with and (suspected) exposure to COVID-19
CPT/HCPCS: 36415; 71045; 71275; 80048; 80053; 80076; 81003; 82805; 82947; 83735; 83880; 84100; 84439; 84443; 84484; 85025; 85379; 85610; 93005; 93970; 93971; 94660; 94760; 96372; 99251; 99285; J1650; J2405; Q9967; U0003

== ENCOUNTER 2020-05-26 14:29 | Emergency (ER) | payer OTHER ==
--- OUTSIDE RECORDS SUMMARY | 2020-05-26 14:32 | XMS REPORT | Continuity of Care Document ---
:1955 Author Organization Formerly [facility] t Address [address] [place] [address] Care Team Providers Name Role Phone Pcp Primary Care Physician Unavailable Carlin BROWN Attending Clinician Adolfo Echeavrria MD Attending Clinician Angela Singh MD Attending Clinician ADOLFO ECHEVARRIA Attending Clinician Unavailable Loco Nelson DO Attending Clinician Doctor Unassigned, Name Attending Clinician Unavailable ANGELA SINGH Admitting Clinician Unavailable Payers Payer Name Policy Type Policy Effective Date Expiration Date Sour ce Number [facility] [id number] [facility] 0 00:00:00 - Me dical CHOICE Center [id number]/POS Problems Condition Condition Condition Status Onset Resolution [...] Date Quantity Comments Source Sex Assigned At [facility] Exposure to SARS-CoV-2 Not sure [facility] (event) Center Medications Ordered Filled Start [...] (two) Center times daily. pregabalin Yes 150mg [id number] Take [address] (LYRICA) 3-15 [id number] mg by Luke s - 150 MG [...] MG 00:00: mouth Medical tablet 00 daily. [place] furosemide Yes 20mg QD Take [address] (LASIX) 20 2-04 by [facility] - MG tablet 00:00: daily. Medica l 00 [place] potassium Yes 20meq QD Take [address] chloride 20 2-04 mEq by [facility] - mEq TbER 00:00: mouth Medical 00 daily. [place] rOPINIRole Yes .25mg QD Take 0.[address] (REQUIP) 2-04 mg by [facility] - 0.25 MG 00:00: mouth Medical tablet 00 nightly. [place] Jardiance Yes 25mg QD Take [address] 25 mg 2-04 by mouth [facility] - tablet 00:00: every Medical 00 morning. [place] levothyroxi Yes 200ug QD Take [address] ne 2-03 mcg by [facility] - (Synthroid) 00:00: mouth Medic al 200 MCG 00 daily. [place] tablet pentoxifyll 2019-02 Yes 400mg QD Take [address] ine 2-27 mg by [facility] - (TRENTAL) 00:00: mouth Medical 400 mg CR 00 daily. [place] tablet insulin 2019-02 Yes 10U Inject 10 [...] mg 00:00: mouth Medical tablet 00 daily. [place] topiramate 2020-0 Yes 50mg Q.5D Take [address] (TOPAMAX) 8-05 by mouth 2 [facility] - 50 MG 00:00: (two) Medical tablet 00 times Center daily. fluticasone 2019-0 Yes 1{puff} QD Inhale 1 [facility] furoate-nayely 3-[address] [facility] - anteroL 00:00: mouth via Medic al (Breo 00 inhaler Center Ellipta) daily. 200-25 mcg/dose DsDv Vital Signs Vital Name Observation Time Observation Value Comments Source Systolic blood 2020-04-26 19:00:00 132 mm[Hg] [facility] Diastolic blood 2020-04-26 19:00:00 70 mm[Hg] [facility] Heart rate 2020-04-26 19:00:00 81 /min [facility] Respiratory rate 2020-04-26 19:00:00 20 /min [facility] Oxygen saturation in 2020-04-26 19:00:00 98 /min [facility] Arterial blood by Medical Ce nter Pulse oximetry Body temperature 2020-04-26 14:01:00 36.44 Renata [facility] Body height 2020-04-26 14:01:00 157.5 cm [facility] Body weight 2020-04-26 14:01:00 199.129 kg [facility] BMI 2020-04-26 14:01:00 80.29 kg/m2 [facility] Procedures Procedure Date / Time Performed Performing Clinician Sourc e BLOOD CULTURE 2020-04-26 17:23:00 Richard Echevarria [facility] SARS-COV2/RT-PCR (HS & 2020-04-26 17:23:00 Richard Echevarria [facility] - REF LABS) [facility] BASIC METABOLIC PANEL 2020-04-26 17:17:[address] [facility] (7) [facility] CBC W/PLT COUNT & AUTO 2020-04-26 17:17:[address] [facility] DIFFERENTIAL [facility] LACTIC ACID, VENOUS 2020-04-26 17:17:00 Richard Echevarria [facility] C-REACTIVE PROTEIN 2020-04-26 17:17:00 Richard Echevarria [facility] BLOOD CULTURE 2020-04-26 17:08:00 Richard Echevarria [facility] Plan of Care Planned Activity Planned Date Details Comments Source Future Scheduled 2020-02-[address] [facility] - Test 00:00:00 (12+) [code = [facility] DEPRESSION SCREENING (12+)] Future Scheduled 2006 SHINGLES VACCINES ([address] [facility] - Test 00:00:00 of 2) [code = [facility] SHINGLES VACCINES (1 of 2)] Future Scheduled [address] [facility] - Test 00:00:00 (procedure) [code = [facility] 13376422] Future Scheduled [address] [facility] - Test 00:00:00 [facility] cervix (procedure) [code = 436084980] Future Scheduled 1975-07-17 DTAP/TDAP/TD VACCINES [facility] Test 00:00:00 (1 - Tdap) [code = Medical C enter DTAP/TDAP/TD VACCINES (1 - Tdap)] Future Scheduled 1974 HEPATITIS C [facility]CRE[facility]ING [facility] Test 00:00:00 [code = HEPATITIS [facility] SCREENING] Future Scheduled [address] [facility] - Test 00:00:00 malignant neoplasm of [facility] breast (procedure) [code = 034569892] Future Scheduled [address] [facility] - Test 00:00:00 malignant neoplasm of [facility] colon (procedure) [code = 506022742] Encounters Start End Encounter Admission Attending Care Care Encounter Source Date/Time Date/Time Type Type Clinicians Facility Department ID 2020-05-18 2020-05-18 Telephone Gillis, [facility] [id number] 00:00:00 00:00:00 [place] [id number] [place] 4.2.7.2.686 Professio [phone] [address] 2020-05-12 2020-05-12 Refill Gillis, [facility] [id number] 00:00:00 00:00:00 [place] [id number] [place] 4.2.7.2.686 Professio [phone] [address] 2020-05-06 2020-05-06 Refill Gillis, [facility] [id number] 00:00:00 00:00:00 [place] [id number] [place] 4.2.7.2.686 Professio [phone] [address] 2020-04-28 2020-04-28 Telephone Gillis, [facility] [id number] 00:00:00 00:00:00 [place] [id number] [place] 4.2.7.2.686 Professio [phone] [address] 2020-04-21 2020-04-21 Patient Omar, [facility] [id number] 00:00:00 00:00:00 Outreach Braulio PRIMARY [id number] [facility] 4.2.7.2.686 PAVILLION [phone] [facility] 2020-04-09 2020-04-09 Outpatient [facility]ML[facility] [id number] [facility] 2020-03-24 2020-03-24 Outpatient [facility]LMLC [facility] [id number] [facility] 2020-03-18 2020-03-18 Outpatient [facility]LML[facility]LML[facility] [id number] [facility] 2020-03-17 2020-03-[address] [facility] [id number] 00:00:00 00:00:00 [facility] [id number] [place] 4.2.7.2.686 Professio [phone] [address] 2020-03-10 2020-03-10 Outpatient STLMLC STLMLC [id number] [facility] 2020-02-20 2020-02-20 Outpatient STLMLC [facility]LMLC [id number] [facility] 2020-02-20 2020-02-20 Telephone Gillis, [facility] [id number] 00:00:00 00:00:00 [facility] [id number] [place] 4.2.7.2.686 Professio [phone] 2020-02-05 2020-02-05 Outpatient STLMLC STLMLC [id number] [facility] 2020-02-03 2020-02-03 Outpatient STLMLC STLMLC [id number] [facility] 2020-02-03 2020-02-03 Outpatient STLMLC [facility] [id number] [facility] 2020-02-02 2020-02-02 Outpatient STLMLC [facility] [id number] [facility] 2020-01-28 2020-01-28 Outpatient STLML[facility] [id number] [facility] 2020-01-27 2020-01-[facility] [id number] [facility] 2020-01-23 2020-01-[facility] [id number] [facility]00 [facility] 2020-01-22 2020-01-22 Orders Doctor VIRIDIANA [id number] 00:00:00 00:00:00 Only Unassigned, IVA 350.1.13.10 [facility] 4.2.7.2.686 [phone] [id number] 2020-01-20 2020-01-20 Office Gillis, [facility] [id number] 13:47:46 15:12:23 Visit Gregoria Ruiz 350.1.13.10 [place] 4.2.7.2.686 Laurent [phone] [address] 2020-01-12 2020-01-12 [facility] [id number] [facility] 2020-01-06 2020[facility]01-[id number] 2020-01-02 2020-01-[facility] [id number] [facility] 2019-12-26 2019-12-[facility] [id number] [facility] 2019-12-22 2019-12-22 [facility] [id number] [facility] Results Test Description Test Time Test Comments Results Result Comments Source Blood Culture - Routine (Right Venipuncture) 2020-05-01 22:0 0:00 Test Item Value Reference Range Interpretation Comme nts Result (test code = 6463-4) No growth in 5 days [id number]:00:00 Test Item Value Reference Range Interpretation Comments CULTURE (BEAKER) (test No growth in 5 days code = 1095) BLOOD [id number] 19:00:00 Test Item Value Reference Range Interpretation Comments CULTURE (BEAKER) (test No growth in 5 days code = 1095) SARS-CoV2/RT-PCR (Asymptomatic ONLY)2020-04-26 18:09:00 Test Item Value Reference Range Interpretation Comments SARS-COV2/RT-PCR Negative Not Detected, Performanc e of the Xpert (test code = Negative, See Xpress 70394-0) external report SARS-CoV-2/F pauline/RSV test for linked [...] Fact Sh eet for Healthcare Prov iders: https://www.[employer]/ Documents/Xpert %20Xpress %18XNHJ-SeW-1-F pauline-RSV/30 2-4508%20Rev.%2 0B%20HCP% 20Fact%20Sheet. pdf Fact Sheet for Healt hcare Patients: https://www.[employer]/ Documents/Xpert %20Xpress %37MYZX-AdS-7-F pauline-RSV/30 2-4507%20Rev.%2 0B%20Pati ent%20Fact%20Sh eet.pdf SARS-COV-2 SLSL Performed at:[facility] PERFORMING LAB [place] [email or web address] (test code = Tan Canales 48268-6) [place] [address] ph: [phone] [facility]F [facility])2020-04-26 18:09:00 Test Item Value Reference Range Interpretation Comments SARS-COV2/RT-PCR Negative Not Detected, Performanc e of the Xpert (test code = Negative, See Xpress 9182072) external report SARS-CoV-2/F pauline/RSV test for linked [...] sooner.Fact She et for Healthcare Prov iders: https://www.Platter heid.com/ Documents/Xpert %20Xpress %99JOCV-DdY-4-F 30 2-4508%20Rev.%2 0B%20HCP% 20Fact%20Sheet. pdfFact Sheet for Healt hcare Patients: https://www.[employer]/ Documents/Xpert %20Xpress %26WXTD-JiV-0-F 30 2-4507%20Rev.%2 0B%20Pati ent%20Fact%20Sh eet.pdf SARS-COV-2 SLSL Performed at:[facility] PERFORMING LAB [place] [id number] (test code = Maddox Jens Par Ally 6720293) [facility] [place] [address] ph: [phone] Basic Metabolic [id number] 17:46:00 Test Item Value Reference Range Interpretation Comments Sodium (test code = 141 meq/L 335-100 6883-2) Potassium (test code 4.3 meq/L 3.6-5.5 = 2823-3) Chloride (test code = 111 meq/L 98-106 H 2075-0) CO2 (test code = 23 meq/L 20-29 2028-9) BUN (test code = 26 mg/dL 10-26 3094-0) Creatinine (test code 1.00 mg/dL 0.5-1.2 = 2160-0) Glucose (test code = 127 mg/dL 70-110 H 2345-7) Calcium (test code = 8.3 mg/dL 8.5-10.5 L 12974-2) EGFR (test code = [place] [address]-3) CLINICAL DATA T O CALCULATE ESTIMATED GFR. HALEY (test code = HALEY) Property Insurance Inspector ID - [id number] r ID - [id number] r ID - [id number] r ID - [id number] r ID - [id number] r ID - [id number] r ID - [id number] r ID - [id number] r ID - [id number] r ID - [id number] r ID - [id number] r ID - [id number] r ID - [id number] Lab Interpretation Abnormal (test code = 51730-2) [facility] [id number] 17:46:00 Test Item Value Reference Range Interpretation [...] 1092) DATA TO CALCULA TE ESTIMATED GFR. Property Insurance Inspector ID - [id number] ID - [id number] ID - [id number] ID - [id number] ID - [id number] ID - [id number] ID - [id number] ID - [id number] ID - [id number] ID - [id number] ID - [id number] ID - [id number] ID - [id number]- Reactive [id number] 17:40:00 Test Item Value Reference Range Interpretation Comments CRP (test code = 676) 0.41 mg/dL 0-0.5 HALEY (test code = HALEY) Property Insurance Inspector ID - [id number] Lab Interpretation (test Normal code = 73677-6) [facility] [id number] 17:40:00 Test Item Value Reference Range Interpretation Comments C-REACTIVE PROTEIN (BEAKER) (test 0.41 mg/dL 0.00-0.50 code = 676) Property Insurance Inspector ID - [id number] acid, [id number] 17:38:00 Test Item Value Reference Range Interpretation Comments Lactate, Venous (test code 0.75 mmol/L 0.5-2 = 8192) HALEY (test code = HALEY) Property Insurance Inspector ID - [id number] ID - [id number] ID - [id number] ID - [id number] Lab Interpretation (test Normal code = 81136-0) [facility], [id number] 17:38:00 Test Item Value Reference Range Interpretation Comments LACTATE BLOOD 0.75 mmol/L See_Comment [Automated me ssage] VENOUS (2) (BEAKER) The syst em which (test code = 2872) generated this result transmitted ref erence range: 0.50-<2. 00. The reference range was not used to interpr et this result as normal/abnormal . Property Insurance Inspector ID - [id number] ID - [id number] ID - [id number] ID - [id number] with platelet count + automated [id number] 17:25:00 Test Item Value Reference Range Interpretation Comments WBC (test code = 6690-2) 10.8 See_Comment H [A utomated message] The system [employer] generated this result transmitted ref erence range: 4.0 - 10 .0 K/L. The refe rence range was not u sed to interpret this result as normal/abnor mal. RBC (test code = 789-8) 3.60 See_Comment L [Au tomated message] The system [employer] generated this result transmitted ref erence range: 4.00 - 5 .00 M/L. The refe rence range was not u sed to interpret this result as normal/abnor mal. MCHC (test code = 786-4) 30.4 See_Comment L [A utomated message] The system [employer] generated this result transmitted ref erence range: [...] See_Comment [Aut omated message] 777-3) The system [employer] generated this result transmitted ref erence range: 150 - 43 0 K/CU MM. The referen ce range was not u sed to interpret this result as normal/abnor mal. MPV (test code = 9.7 fL 6-11.5 22466-2) nRBC (test code = 413) 0 See_Comment [Aut omated message] The system [employer] generated this result transmitted ref erence range: [...] H [Aut omated message] 670) The system [employer] generated this result transmitted ref erence range: 1.80 - 8 .00 K/L. The refe rence range was not u sed to interpret this result as normal/abnor mal. # Lymphs (test code = 0.90 See_Comment L [Auto mated message] 414) The system [employer] generated this result transmitted ref erence range: 1.48 - 4 .50 K/L. The refe rence range was not u sed to interpret this result as normal/abnor mal. # Monos (test code = 0.73 See_Comment [Autom ated message] 415) The system [employer] generated this result transmitted ref erence range: 0.00 - 1 .30 K/L. The refe rence range was not u sed to interpret this result as normal/abnor mal. # Eos (test code = 416) 0.23 See_Comment [Au tomated message] The system [employer] generated this result transmitted ref erence range: 0.00 - 0 .50 K/L. The refe rence range was not u sed to interpret this result as normal/abnor mal. # Baso (test code = 417) 0.04 See_Comment [A utomated message] The system [employer] generated this result transmitted ref erence range: 0.00 - 0 .20 K/L. The refe rence range was not u sed to interpret this result as normal/abnor mal. Immature 2 % 0-0 H Granulocytes-Relative (test code = 2801) Lab Interpretation (test Abnormal code = 75235-0) [facility] W/PLT COUNT & AUTO [id number] 17:25:00 Test Item Value Reference Range Interpretation [...]
[2020-05-26 15:52] LABS: Urine Blood Negative (Negative); Urine Glucose 3+ (Negative); Urine Protein Negative (Negative); Urine Specific Gravity 1.015 (1.005-1.030)
[2020-05-26 17:00] LABS: Absolute Lymphocytes (CBC) 1.4 K/uL (0.7-4.9); Basophils % 0.7 % (0-1.3); Hematocrit 37.7 % (36.0-45.0); Lymphocytes % 15.7 % (15.3-44.8); MPV 8.4 fL (7.6-11.3); Protime INR 1.71; RBC Red Blood Cell Count 4.03 M/uL (3.86-4.86)
[2020-05-26 17:06] LABS: Arterial Blood Carboxyhemoglob 1.3 % (0-1.5); Blood Gas Oxyhemoglobin 94.9 % (94-97)
--- NOTE | 2020-05-26 17:06 | RAD REPORT ---
EXAM DESCRIPTION: Rebekah Single View05/26/2020 4:44 pm CLINICAL HISTORY: Chest pain COMPARISON: May 18, 2020 FINDINGS: The lungs appear clear of acute infiltrate. The heart is normal size IMPRESSION: No acute abnormalities displayed
[2020-05-26 17:15] LABS: ALT/SGPT 46 U/L (12-78); AST/SGOT 14 U/L (15-37); Albumin 3.3 g/dL (3.4-5.0); Alkaline Phosphatase 74 U/L (45-117); BUN Blood Urea Nitrogen 22 mg/dL (7-18); Bicarbonate 24 mmol/L (21-32); Bilirubin Direct < 0.1 mg/dL (0-0.2); Bilirubin Total 0.3 mg/dL (0.2-1.0); Glucose Level 154 mg/dL (74-106); Magnesium 2.2 mg/dL (1.8-2.4); NT PRO-BNP 75 pg/mL (<125); Potassium 4.2 mmol/L (3.5-5.1); Protein, Total 6.9 g/dL (6.4-8.2); Sodium Level 144 mmol/L (136-145); Troponin (Emerg Dept Use Only) < 0.02 ng/mL (0.0-0.045)
[2020-05-26] MEDS ORDERED: KETOROLAC 30 MG/ML INJ ONE (17:23)
--- NOTE | 2020-05-26 19:18 | RAD REPORT ---
EXAM DESCRIPTION: CT - Chest For Pe Angio - 05/26/2020 6:51 pm CLINICAL HISTORY: Shortness of breath COMPARISON: May 18, 2020 TECHNIQUE: Dynamically enhanced axial 3 mm thick images of the chest were obtained during administra tion of <100> mL Isovue 370 IV contrast. Coronal and oblique reconstruction images were generated and reviewed. Exam utilizes a protocol for optimal evaluation of pulmonary arterial tree. Maximum intensity projections 3D imaging was utilized All CT scans are performed using dose optimization technique as appropriate and may include automated exposure control or mA/KV adjustment according to patient size. FINDINGS: Thrombus within right lower lobe pulmonary arterial branches without significant change fr om prior exam. No additional pulmonary emboli seen. A thoracic aortic aneurysm is not noted. A pleural effusion is not seen. A pericardial effusion is not seen. A lung consolidation is not present. IMPRESSION: Right lower lobe pulmonary emboli without significant change from May 18, 2020
--- NOTE | 2020-05-26 19:44 | ER ---
Nurse's Notes [facility] Name: Kathia Phipps Age: 64 yrs Sex: Female : 1955 Arrival Date: 05/26/2020 Time: 14:54 Bed 6 Private MD: Diagnosis: Pulmonary embolism without acute cor pulmonale Presentation: 05/26 14:55 Chief complaint: EMS states: SOB started today, is on home O2 and told EMS that she had sv an O2 sat of 70%, family had increased her O2 to 3L per [place]. On EMS arrival pt was 98%. Coronavirus screen: Client denies travel out of the [place] in the last 14 days. At this time, the client does not indicate any symptoms associated with coronavirus-19. Ebola Screen: No symptoms or risks identified at this time. Risk Assessment: Do you want to hurt yourself or someone else? Patient reports no desire to harm self or others. Onset of symptoms was May 26, 2020. 14:55 Method Of Arrival: EMS: [facility] sv 14:55 Acuity: ISSAC 3 sv 15:27 Initial Sepsis Screen: Does the patient meet any 2 criteria? No. Patient's initial sv sepsis screen is negative. Does the patient have a suspected source of infection? No. Patient's initial sepsis screen is negative. Triage Assessment: 14:55 General: Appears in no apparent distress. comfortable, Behavior is calm, cooperative, sv appropriate for age. Pain: Denies pain. Neuro: Level of Consciousness is awake, alert, obeys commands, Oriented to person, place, time, situation, Moves all extremities. Full function. Respiratory: Reports shortness of breath Respiratory effort is even, unlabored, Respiratory pattern is regular, agonal Onset: The symptoms/episode began/occurred this morning, the patient reports symptoms have resolved. Derm: Skin is normal. Historical: - Allergies: 14:57 Cipro PO; sv 14:57 Clarithromycin; sv 14:57 Farmiga; sv 14:57 Farxiga; sv 14:57 Januvia; sv 14:57 Latex, Natural Rubber; sv 14:57 Levaquin; sv 14:57 Morphine; sv 14:57 PENICILLINS; sv 14:57 sitagliptin; sv - PMHx: 14:57 Diabetes - IDDM; chronic fatigue; GERD; dyslipidemia; Fibromyalgia; Hypertension; sv vitamin d deficiency; Hypothyroidism; Sleep Apnea; Vitiligo; - PSHx: 14:57 Tubal ligation; sv - Immunization history:: Adult Immunizations. - Social history:: Smoking status: . Screenin:55 Abuse screen: Denies threats or abuse. Denies injuries from another. Nutritional sv screening: No deficits noted. Tuberculosis screening: No symptoms or risk factors identified. Fall Risk None identified. Assessment: 15:53 Reassessment: Sofia RT and Henrietta RT at the bedside obtaining an ABG. sv 16:30 Reassessment: Patient appears in no apparent distress at this time. Patient and/or sv family updated on plan of care and expected duration. Pain level reassessed. Patient is alert, oriented x 3, equal unlabored respirations, skin warm/dry/pink. 17:29 Reassessment: Patient appears in no apparent distress at this time. Patient and/or sv family updated on plan of care and expected duration. Pain level reassessed. Patient is alert, oriented x 3, equal unlabored respirations, skin warm/dry/pink. Vital Signs: 15:20 BP 122 / 59; Pulse 80; Resp 18; Pulse Ox 98% on R/A; mt 15:21 Temp 99.2(O); mt 16:33 BP 111 / 82; Pulse 82; Resp 18; Pulse Ox 98% ; sv 18:42 BP 125 / 65; Pulse 86; Resp 16; Pulse Ox 99% on R/A; mt 20:10 BP 120 / 80; Pulse 80; Resp 18; Pulse Ox 99% on 3 lpm NC; mg2 ED Course: 14:54 Patient arrived in ED. sv 14:55 Patient has correct armband on for positive identification. Bed in low position. Call sv light in reach. Adult w/ patient. Pulse ox on. NIBP on. 14:56 Triage completed. sv 14:57 Arm band placed on. sv 15:21 Selwyn Jackson PA is PHCP. cp 15:21 Richard Avery MD is Attending Physician. cp 15:26 Katlin Martínez RN is Primary Nurse. sv 16:25 Inserted saline lock: 20 gauge in right wrist, using aseptic technique. Blood collected.sv 16:37 X-ray(s) taken. sv 18:51 CT Chest For PE Angio In Process Unspecified. EDMS 19:14 Primary Nurse role handed off by Katlin Martínez RN mw2 19:15 Report given to Ethan RIVERA and Tammy RIVERA. sv 20:11 No provider procedures requiring assistance completed. IV discontinued, intact, mg2 bleeding controlled, No redness/swelling at site. Pressure dressing applied. Administered Medications: 17:29 Drug: TORadol - (ketorolac) 15 mg Route: IVP; Site: right wrist; sv 19:53 Follow up: Response: No adverse reaction mg2 17:47 CANCELLED (Physician Discretion): foLIC Acid 1 mg IVPB once cp 19:42 CANCELLED (Physician Discretion): Albuterol 2.5 mg Inhalation once cp 19:51 Drug: fentaNYL (PF) 25 mcg Route: IVP; Site: right wrist; iw 19:53 Follow up: Response: No adverse reaction mg2 Outcome: 19:43 Discharge ordered by MD. cp 20:11 Discharged to home via wheelchair, with family. mg2 20:11 Condition: stable 20:11 Discharge instructions given to patient, family, Instructed on discharge instructions, follow up and referral plans. medication usage, Demonstrated understanding of instructions, follow-up care, medications, Prescriptions given X 1. 20:11 Patient left the ED. mg2 Signatures: Dispatcher [employer] EDMS Katlin Martínez, Tita Wiseman RN, RN RN iw Selwyn Jackson, NE[facility] BARRETT [facility] mw2 Ethan Salinas RN RN mg2
--- NOTE | 2020-05-26 19:44 | EDPHYS ---
Physician Documentation [facility] Name: Kathia Phipps Age: 64 yrs Sex: Female : 1955 Arrival Date: 05/26/2020 Time: 14:54 Bed 6 Private MD: ED Physician Richard Avery HPI: 05/26 15:51 This 64 yrs old Female presents to ER via EMS with complaints of Shortness Of cp Breath. 15:51 The patient has shortness of breath with light activity. Onset: The symptoms/episode cp began/occurred gradually. Associated signs and symptoms: Pertinent positives: non-productive cough, fever, back pain, Pertinent negatives: chest pain, diaphoresis, hemoptysis. Patient reports recent hospitalization for bilateral pulmonary embolism, left arm DVT last week. Patient reports she is currently taking prescribed Xarelto twice daily and has home oxygen set up. Historical: - Allergies: 14:57 Cipro PO; sv 14:57 Clarithromycin; sv 14:57 Farmiga; sv 14:57 Farxiga; sv 14:57 Januvia; sv 14:57 Latex, Natural Rubber; sv 14:57 Levaquin; sv 14:57 Morphine; sv 14:57 PENICILLINS; sv 14:57 sitagliptin; sv - PMHx: 14:57 Diabetes - IDDM; chronic fatigue; GERD; dyslipidemia; Fibromyalgia; Hypertension; sv vitamin d deficiency; Hypothyroidism; Sleep Apnea; Vitiligo; - PSHx: 14:57 Tubal ligation; sv - Immunization history:: Adult Immunizations. - Social history:: Smoking status: . ROS: 15:55 Constitutional: Negative for body aches, chills, fever, poor PO intake. cp 15:55 Eyes: Negative for injury, pain, redness, and discharge. cp 15:55 ENT: Negative for ear pain, sore throat, difficulty swallowing, difficulty handling secretions. 15:55 Cardiovascular: Negative for chest pain, edema, palpitations. 15:55 Respiratory: Positive for cough, shortness of breath, on exertion. Negative for wheezing. 15:55 Abdomen/GI: Negative for abdominal pain, nausea, vomiting, and diarrhea. 15:55 Back: Positive for pain at rest, of the left subscapular area and right subscapular area. 15:55 Skin: Negative for cellulitis, rash. 15:55 Neuro: Negative for altered mental status, headache, syncope, weakness. 15:55 All other systems are negative. Exam: 15:55 ECG was reviewed by the Attending Physician. cp 16:00 Constitutional: The patient appears in no acute distress, alert, awake, cp non-diaphoretic, non-toxic, well developed, well nourished, morbidly obese 16:00 Head/Face: Normocephalic, atraumatic. cp 16:00 Eyes: Periorbital structures: appear normal, Conjunctiva: normal, no exudate, no injection, Sclera: no appreciated abnormality, Lids and lashes: appear normal, bilaterally. 16:00 ENT: External ear(s): are unremarkable, Nose: is normal, Mouth: Lips: moist, Oral mucosa: moist, Posterior pharynx: Airway: no evidence of obstruction, patent. 16:00 Neck: ROM/movement: is normal, is supple, without pain, no range of motions limitations. 16:00 Chest/axilla: Inspection: normal, Palpation: is normal, no crepitus, no tenderness. 16:00 Cardiovascular: Rate: normal, Rhythm: regular, Edema: is not appreciated, JVD: is not appreciated. 16:00 Respiratory: the patient does not display signs of respiratory distress, Respirations: normal, no use of accessory muscles, no retractions, labored breathing, is not present, Breath sounds: decreased breath sounds, are not appreciated, stridor, is not appreciated, wheezing: is not appreciated. 16:00 Abdomen/GI: Inspection: obese Palpation: abdomen is soft and non-tender, in all quadrants, voluntary guarding, is not appreciated, involuntary guarding, is not appreciated. 16:00 Back: pain, that is mild, of the left subscapular area and right subscapular area, ROM is painful, with all movement. 16:00 Skin: no rash present. 16:00 Neuro: Orientation: to person, place \T\ time. Mentation: is normal, Motor: moves all fours, strength is normal. Vital Signs: 15:20 BP 122 / 59; Pulse 80; Resp 18; Pulse Ox 98% on R/A; mt 15:21 Temp 99.2(O); mt 16:33 BP 111 / 82; Pulse 82; Resp 18; Pulse Ox 98% ; sv 18:42 BP 125 / 65; Pulse 86; Resp 16; Pulse Ox 99% on R/A; mt 20:10 BP 120 / 80; Pulse 80; Resp 18; Pulse Ox 99% on 3 lpm NC; mg2 MDM: 15:21 Patient medically screened. cp 16:00 Differential diagnosis: CHF exacerbation, pneumonia, Pneumothorax pulmonary edema, cp Pulmonary Embolism Sepsis Unstable Angina. 19:43 Data reviewed: vital signs, nurses notes, lab test result(s), EKG, radiologic studies, cp CT scan. 19:43 Test interpretation: by ED physician or midlevel provider: ECG, plain radiologic cp studies. Counseling: I had a detailed discussion with the patient and/or guardian regarding: the historical points, exam findings, and any diagnostic results supporting the discharge/admit diagnosis, lab results, radiology results, to return to the emergency department if symptoms worsen or persist or if there are any questions or concerns that arise at home. 19:44 ED course: VSS. Pain improved with meds. Discussed results of labs, EKG and radiology cp studies that were negative for worsening pulmonary embolism. Patient has supplemental oxygen at home set-up, appears non-toxic and no signs of respiratory distress. Will discharge to home for continued monitoring. 05/26 15:30 Order name: ABG 05/26 15:52 Order name: Urine Dipstick-Ancillary; Complete Time: 16:51 EDMS 05/26 16:51 Interpretation: Normal except: UGLUC 3+. 05/26 17:01 Order name: CBC with Automated Diff; Complete Time: 17:44 EDMS 05/26 19:01 Interpretation: Normal except: WBC 9.20; HGB 11.8; MCHC 31.5; PLT 232; RDW 15.7; cp EOSINOPHIL % 5.3. 05/26 17:02 Order name: Protime (+INR); Complete Time: 17:44 EDMS 05/26 17:09 Order name: ABG Arterial Blood Gas; Complete Time: 17:44 EDMS 05/26 17:16 Order name: Basic Metabolic Panel; Complete Time: 17:44 EDMS 05/26 19:02 Interpretation: Normal except: CL 113; GLUC 154; BUN 22; GFR 53; CA 8.9. 05/26 15:29 Order name: XRAY Chest (1 view) 04/14 15:29 Order name: EKG; Complete Time: 17:03 cp 05/26 15:29 Order name: Cardiac monitoring; Complete Time: 15:51 cp 05/26 15:29 Order name: EKG - Nurse/Tech; Complete Time: 15:51 cp 05/26 15:29 Order name: IV Saline Lock; Complete Time: 16:39 cp 05/26 15:29 Order name: Labs collected and sent; Complete Time: 16:39 cp 05/26 17:07 Order name: RAD; Complete Time: 17:44 EDMS 05/26 17:16 Order name: Liver (Hepatic) Function; Complete Time: 17:44 EDMS 05/26 17:16 Order name: Troponin (Emerg Dept Use Only); Complete Time: 17:44 EDMS 05/26 17:16 Order name: NT PRO-BNP; Complete Time: 17:44 EDMS 14 17:16 Order name: Magnesium; Complete Time: 17:44 EDMS 05/26 17:47 Order name: CT Chest For PE Angio; Complete Time: 19:26 cp 05/26 15:29 Order name: O2 Per Protocol; Complete Time: 15:51 cp 05/26 15:29 Order name: O2 Sat Monitoring; Complete Time: 15:51 cp EC:55 Rate is 85 beats/min. Rhythm is regular. ND interval is normal. QRS interval is normal. cp QT interval is normal. Interpreted by me. Reviewed by me. Administered Medications: 17:29 Drug: TORadol - (ketorolac) 15 mg Route: IVP; Site: right wrist; sv 19:53 Follow up: Response: No adverse reaction mg2 17:47 CANCELLED (Physician Discretion): foLIC Acid 1 mg IVPB once cp 19:42 CANCELLED (Physician Discretion): Albuterol 2.5 mg Inhalation once cp 19:51 Drug: fentaNYL (PF) 25 mcg Route: IVP; Site: right wrist; iw 19:53 Follow up: Response: No adverse reaction mg2 Disposition: 05/27 07:27 Co-signature as Attending Physician, Richard Avery MD I agree with the assessment and kdr plan of care. Disposition: 05/26/20 19:43 Discharged to Home. Impression: Pulmonary embolism without acute cor pulmonale. - Condition is Stable. - Discharge Instructions: Pulmonary Embolism. - Prescriptions for Tramadol 50 mg Oral Tablet - take 1 tablet by ORAL route every 8 hours as needed; 12 tablet. - Medication Reconciliation Form, Thank You Letter, Antibiotic Education, Prescription Opioid Use form. - Follow up: Private Physician; When: 1 - 2 days; Reason: Recheck today's complaints. - Problem is an ongoing problem. - Symptoms have improved. Signatures: Dispatcher [employer] EDMS Katlin Martínez RN RN sv Richard Avery MD MD kdr Tita Mancilla RN RN iw Selwyn Jackson PA PA cp Ethan Salinas RN RN mg2 Corrections: (The following items were deleted from the chart) 05/26 17:25 17:03 BASIC METABOLIC PANEL+C.LAB.BRZ ordered. EDTN EDTN 17:25 17:03 CBC+H.LAB.BRZ ordered. EDTN EDTN 17:25 17:03 HEPATIC FUNCTION+C.LAB.BRZ ordered. EDTN EDTN 17:25 17:03 MAGNESIUM+C.LAB.BRZ ordered. EDTN EDTN 17:25 17:03 PROBNP+C.LAB.BRZ ordered. EDTN EDTN 17:25 17:03 PROTIME (+INR)+COAG.LAB.BRZ ordered. EDTN EDTN 17:25 17:03 TROPONIN (EMERG DEPT USE ONLY)+C.LAB.BRZ ordered. EDTN EDMS 17:47 17:47 foLIC Acid 1 mg IVPB once ordered. cp cp 19:02 19:01 Normal except: CL 113; GLUC 154; BUN 22; GFR 53. cp cp 19:42 19:31 Albuterol 2.5 mg Inhalation once ordered. cp cp 20:11 19:43 05/26/2020 19:43 Discharged to Home. Impression: Pulmonary embolism without acute mg2 cor pulmonale. Condition is Stable. Forms are Medication Reconciliation Form, Thank You Letter, Antibiotic Education, Prescription Opioid Use. Follow up: Private Physician; When: 1 - 2 days; Reason: Recheck today's complaints. Problem is an ongoing problem. Symptoms have improved. cp 05/27 17:09 05/26 15:51 Patient reports recent hospitalization for bilateral pulmonary embolism, cp left arm DVT last week. Patient reports she is currently taking prescribed Xarelto. cp
[2020-05-26] MEDS ORDERED: FENTANYL CITR 100 MCG/2 ML ONE (20:06)
[2020-05-26 20:20] VITALS: TEMP 99.2
[2020-05-26 20:22] VITALS: O2SAT 99
[2020-05-26 20:24] VITALS: BP 120/80
--- NOTE | 2020-05-27 07:35 | EKG ---
Test Date: 2020-05-26 Test Time: 15:47:32 [employer] Technician: AMARI MEASUREMENT RESULTS: Intervals: Rate: 85 MD: 128 QRSD: 80 QT: 386 QTc: 459 [place]: P: 57 MD: 128 QRS: 3 T: 60 INTERPRETIVE STATEMENTS: Normal sinus rhythm Normal ECG Compared to ECG 05/18/2020 16:23:01 No significant changes Electronically Signed On 05-27-20 07:34:35 CDT by Edilberto Hernandez
== END 2020-05-26 20:11 | disposition home or self-care (01) ==
LOC: ER 14:29
DX: I26.99 Other pulmonary embolism without acute cor pulmonale (principal); I10 Essential (primary) hypertension; Z79.01 Long term (current) use of anticoagulants; Z88.0 Allergy status to penicillin; Z88.1 Allergy status to other antibiotic agents; Z88.3 Allergy status to other anti-infective agents; Z88.5 Allergy status to narcotic agent; Z88.8 Allergy status to other drugs, medicaments and biological substances; Z91.040 Latex allergy status; Z91.048 Other nonmedicinal substance allergy status; Z20.822 Contact with and (suspected) exposure to COVID-19
CPT/HCPCS: 85025; 80048; 36415; 83735; 85610; 80076; 81003; 84484; 83880; 71275; 71045; 82805; U0003; Q9967; J3010; 93005; 96374; 96375; 99284

== ENCOUNTER 2020-07-11 18:15 | Inpatient (IN) | payer OTHER ==
--- OUTSIDE RECORDS SUMMARY | 2020-07-11 18:17 | XMS REPORT | Continuity of Care Document ---
:1955 Author Organization [facility] t Address [address] [place] [address] Care Team Providers Name Role Phone Pcp Primary Care Physician Unavailable Carlin BROWN Attending Clinician Adolfo Echevarria MD Attending Clinician Angela Singh MD Attending Clinician ADOLFO ECHEVARRIA Attending Clinician Unavailable Loco Nelson DO Attending Clinician Doctor Unassigned, Name Attending Clinician Unavailable ANGELA SINGH Admitting Clinician Unavailable Payers Payer Name Policy Type Policy Effective Date Expiration Date Sour ce Number [facility] [id number] [facility] 0 00:00:00 - N[place] dical CHOICE [facility] [id number]/POS Problems Condition Condition Condition Status Onset Resolution [...] Date Quantity Comments Source Sex Assigned At [facility] Medications Ordered Filled Start Stop Current Ordering [...] Medical 47 (two) Center times daily. pregabalin 0 Yes 150mg [id number] Take [address] [facility] (LYRICA) 3-15 [id number] mg by Luke s - 150 MG [...] MG 00:00: mouth Medical tablet 00 daily. [place] furosemide Yes 20mg QD Take [address] (LASIX) 20 2-04 by mouth [facility] - MG tablet 00:00: daily. Medica l 00 [place] potassium Yes 20meq QD Take [address] chloride 20 2-04 mEq by [facility] - mEq TbER 00:00: mouth Medical 00 daily. [place] rOPINIRole Yes .25mg QD Take 0.[address] (REQUIP) 2-04 mg by [facility] - 0.25 MG 00:00: mouth Medical tablet 00 nightly. [place] Jardiance Yes 25mg QD Take [address] 25 mg 2-04 by mouth [facility] - tablet 00:00: every Medical 00 morning. [place] levothyroxi Yes 200ug QD Take [address] ne 2-03 mcg by [facility]ukes - (Synthroid) 00:00: mouth Medic al 200 MCG 00 daily. [place] tablet pentoxifyll 2019-02 Yes 400mg QD Take [address] ine 2-27 mg by [facility]ukes - (TRENTAL) 00:00: mouth Medical 400 mg CR 00 daily. [place] tablet insulin 2019-02 Yes 10U Inject 10 [facility] aspart 2-08 Units [facility] - U-100 00:00: subcutaneo Medica l (NovoLOG) 00 usly 3 Center 100 unit/mL (three) (3 mL) InPn times daily before meals. insulin 2020-1 Yes 60U Inject 60 [facility] degludec 2-08 [facility] - (Tresiba 00:00: subcutaneo Med ical FlexTouch 00 usly 2 Center U-200) 200 (two) unit/mL (3 times mL) InPn daily with breakfast and dinner. phentermine 2020-0 Yes 37.5mg QD Take 37.[address] (ADIPEX-P) 8-05 mg by [facility] - 37.5 mg 00:00: mouth Medical tablet 00 daily. Center topiramate 2020-0 Yes 50mg Q.5D Take [address] (TOPAMAX) 8-05 by mouth 2 Luke [facility] - 50 MG 00:00: (two) Medical tablet 00 times Center daily. fluticasone 2019-0 Yes 1{puff} QD Inhale [address] [facility] [address] furoate-nayely 3-19 puff by [facility] - anteroL 00:00: mouth via Medic al (Breo 00 inhaler Center Ellipta) daily. 200-25 mcg/dose DsDv Vital Signs Vital Name Observation Time Observation Value Comments Source Systolic blood 2020-04-26 19:00:00 132 mm[Hg] [facility] pressure [facility] Diastolic blood 2020-04-26 19:00:00 70 mm[Hg] [facility] S [facility] Heart rate 2020-04-26 19:00:00 81 /min [facility] Respiratory rate 2020-04-26 19:00:00 20 /min [facility] Oxygen saturation in 2020-04-26 19:00:00 98 /min [facility] Arterial blood by Medical Ce nter Pulse oximetry Body temperature 2020-04-26 14:01:00 36.44 Renata [facility] Body height 2020-04-26 14:01:00 157.5 cm [facility] Body weight 2020-04-26 14:01:00 199.129 kg [facility] BMI 2020-04-26 14:01:00 80.29 kg/m2 [facility] Procedures Procedure Date / Time Performed Performing Clinician Sour e BLOOD CULTURE 2020-04-26 17:23:00 Richard Echevarria [facility] SARS-COV2/RT-PCR (HS & 2020-04-26 17:23:00 Richard Echevarria [facility] - REF LABS) [facility] BASIC METABOLIC PANEL 2020-04-26 17:17:00 Richard Echevarria [facility] (7) [facility] CBC W/PLT COUNT & AUTO 2020-04-26 17:17:00 Richard Echevarria [facility] DIFFERENTIAL [facility] LACTIC ACID, VENOUS 2020-04-26 17:17:00 Richard Echevarria [facility] C-REACTIVE PROTEIN 2020-04-26 17:17:00 Richard Echevarria [facility] BLOOD CULTURE 2020-04-26 17:08:00 Richard Echevarria [facility] Plan of Care Planned Activity Planned Date Details Comments Source Future Scheduled 2020-02-[address] [facility] - Test 00:00:00 (12+) [code = [facility] DEPRESSION SCREENING (12+)] Future Scheduled 2006 SHINGLES VACCINES ([address] [facility] - Test 00:00:00 of 2) [code = [facility] SHINGLES VACCINES (1 of 2)] Future Scheduled [address] [facility] - Test 00:00:00 (procedure) [code = [facility] 00626541] Future Scheduled [address] [facility] - Test 00:00:00 malignant neoplasm of [facility] cervix (procedure) [code = 032682392] Future Scheduled 1975-07-17 DTAP/TDAP/TD VACCINES [facility] Test 00:00:00 (1 - Tdap) [code = Medical C enter DTAP/TDAP/TD VACCINES (1 - Tdap)] Future Scheduled 1974 HEPATITIS C [facility]CRE[facility]ING [facility] Test 00:00:00 [code = HEPATITIS [facility] Medical Center SCREENING] Future Scheduled [address] [facility] - Test 00:00:00 malignant neoplasm of [facility] breast (procedure) [code = 022586758] Future Scheduled 1955 Screening for SHAHRZAD Brooke es - Test 00:00:00 malignant neoplasm of [facility] colon (procedure) [code = 520443216] Encounters Start End Encounter Admission Attending Care Care Encounter Source Date/Time Date/Time Type Type Clinicians Facility Department ID 2020-07-03 2020-07-03 Refill Gillis, [facility] [id number] 00:00:00 00:00:00 Wentong Leland [id number] [place] [id number] Professio [phone] [address] 2020-06-30 2020-06-30 Outpatient [facility] [id number] [facility] 2020-06-16 2020-06-16 Outpatient [facility]LML[facility] [id number] [facility] St 00:00:00 00:00:[facility] 2020-06-07 2020-06-07 Refill Gillis, [facility] [id number] 00:00:00 00:00:00 Wentong Leland [id number] [place] [id number] Professio [id number] [address] 2020-05-28 2020-05-28 Outpatient [facility]ML[facility] [id number] [facility] 2020-05-18 2020-05-18 Telephone Gillis, [facility] [id number] 00:00:00 00:00:00 Wentong Leland [id number] [place] 4.2.7.2.686 Professio [phone] [address] 2020-05-12 2020-05-12 Refill Gillis, [facility] [id number] 00:00:00 00:00:00 Wentong Leland [id number] [place] 4.2.7.2.686 Professio [id number] [address] 2020-05-06 2020-05-06 Refill Carlin, [facility] [id number] 00:00:00 00:00:00 Wentong Leland [id number] [place] 4.2.7.2.686 Professio [id number] [address] 2020-04-28 2020-04-28 Telephone Gillis, [facility] [id number] 00:00:00 00:00:00 Wentong Leland [id number] [place] 4.2.7.2.686 Professio [id number] [address] 2020-04-21 2020-04-21 Patient Omar [facility] [id number] 00:00:00 00:00:00 [facility] [place] [id number] [facility] 4.2.7.2.686 PAVILLION [id number] 2020-04-09 2020-04-09 Outpatient [facility] [id number] [facility] 2020-03-24 2020-03-24 [facility] [id number] [facility] 2020-03-18 2020-03-18 [facility] [id number] [facility] 2020-03-17 2020-03-17 [facility] [id number] 00:00:00 00:00:00 Opalong Leland [id number] [place] 4.2.7.2.[address] Professio [phone] [address] 2020-03-10 2020-03-10 [facility] [id number] [facility] 2020-02-20 2020-02-20 Telephone Carlin, [facility] [id number] 00:00:00 00:00:00 Gregoria Ruiz [id number] [place] 4.2.7.2.686 Laurent [id number] [address] 2020-02-20 2020-02-20 Outpatient [facility] [id number] [facility] 2020-02-05 2020-02-05 Outpatient [facility] [id number] [facility] 2020-02-03 2020-02-03 Outpatient [facility] [id number] [facility] 2020-02-03 2020-02-03 Outpatient [facility] [id number] [facility] 2020-02-02 2020-02-02 Outpatient [facility] [id number] [facility] 2020-01-28 2020-01-28 Outpatient [facility] [id number] [facility] 2020-01-27 2020-01-27 Outpatient [facility] [id number] [facility] 2020-01-23 2020-01-23 Outpatient [facility] [id number] [facility] 2020-01-22 2020-01-22 Orders Doctor VIRIDIANA [id number] 00:00:00 00:00:00 Only Unassigned, IVA 350.1.13.10 [place] [facility] 4.2.7.2.686 [id number] 2020-01-20 2020-01-20 Office Gillis, [facility] [id number] 13:47:46 15:12:23 Visit [facility] [id number] [place] 4.2.7.2.686 [facility] [phone] [facility] [address] 2020-01-12 2020-01-12 [facility] [id number] [facility]00 [facility] 2020-01-06 2020-01-06 [facility] [id number] [facility]00 [facility] Outpati ent [facility] 2020-01-02 2020-01-02 [facility] [id number] [facility] 2019-12-26 2019-12-26 [facility] [id number] [facility] 2019-12-22 2019-12-22 [facility] [id number] [facility] [facility] Results Test Description Test Time Test Comments Results Result Comments Source Blood Culture - Routine (Right Venipuncture) 2020-05-01 22:0 0:00 Test Item Value Reference Range Interpretation Comme nts Result (test code = 6463-4) No growth in 5 days [id number] 22:00:00 Test Item Value Reference Range Interpretation Comments CULTURE (BEAKER) (test No growth in 5 days code = 1095) BLOOD [id number] 19:00:00 Test Item Value Reference Range Interpretation Comments CULTURE (BEAKER) (test No growth in 5 days code = 1095) SARS-CoV2/RT-PCR (Asymptomatic ONLY)2020-04-26 18:09:00 Test Item Value Reference Range Interpretation Comments SARS-COV2/RT-PCR Negative Not Detected, Performanc e of the Xpert (test code = Negative, See Xpress 55037-3) external report SARS-CoV-2/F pauline/RSV test for linked [...] Fact Sh eet for Healthcare Prov iders: https://www.cep heid.com/ Documents/Xpert %20Xpress %06YSAP-OpF-8-F pauline-RSV/30 2-4508%20Rev.%2 0B%20HCP% 20Fact%20Sheet. pdf Fact Sheet for Healt hcare Patients: https://www.ZeroPercent.usid.com/ Documents/Xpert %20Xpress %98HVWG-EfO-6-F pauline-RSV/30 2-4507%20Rev.%2 0B%20Pati ent%20Fact%20Sh eet.pdf SARS-COV-2 SLSL Performed at:[facility] PERFORMING LAB Karey Rangel [id number] (test code = Tan Canales 63778-6) [place] [address] ph: [phone] [facility])2020-04-26 18:09:00 Test Item Value Reference Range Interpretation Comments SARS-COV2/RT-PCR Negative Not Detected, Performanc e of the Xpert (test code = Negative, See Xpress 6662864) external report SARS-CoV-2/F pauline/RSV test for linked test has only bee n established in nasopharyngeal swab specimens. Use of the Xpert Xpress SARS-CoV-2/Flu/ RSV test with other spec imen types has not b een assessed and pe rformance characteristics are unknown. As wi th any molecular test, mutations withi n the targeted geneti c regions identified by criselda chan Xpert Xpress SARS-CoV-2/Flu/ RSV test could affect [...] sooner.Fact She et for Healthcare Prov iders: https://www.BoostSuite/ Documents/Xpert %20Xpress %32EUBE-IvU-7-F pauline-RSV/30 2-4508%20Rev.%2 0B%20HCP% 20Fact%20Sheet. pdfFact Sheet for Healt hcare Patients: https://www.BoostSuite/ Documents/Xpert %20Xpress %59HSWX-YeL-8-F pauline-RSV/30 2-4507%20Rev.%2 0B%20Pati ent%20Fact%20Sh eet.pdf SARS-COV-2 SLSL Performed at:[facility] PERFORMING LAB [id number] (test code = Maddox Jens Canales 0361873) [place] [address] ph: [phone] Basic Metabolic [id number] 17:46:00 Test Item Value Reference Range Interpretation Comments Sodium (test code = 141 meq/L 660-645 1822-2) Potassium (test code 4.3 meq/L 3.6-5.5 = 2823-3) Chloride (test code = 111 meq/L 98-106 H 2074-0) CO2 (test code = 23 meq/L -2027-9) BUN (test code = 26 mg/dL - 3094-0) Creatinine (test code 1.00 mg/dL 0.5-1.2 = 2160-0) Glucose (test code = 127 mg/dL 70-110 H 2345-7) Calcium (test code = 8.3 mg/dL 8.5-10.5 L 93714-3) EGFR (test code = [place] 004[address]-7) CLINICAL DATA T O CALCULATE ESTIMATED GFR. HALEY (test code = HALEY) Boatbuilder Supervisor ID - [id number] r ID - [id number] r ID - [id number] r ID - [id number] r ID - [id number] r ID - [id number] r ID - [id number] r ID - [id number] r ID - [id number] r ID - [id number] r ID - [id number] r ID - [id number] r ID - [id number] Lab Interpretation Abnormal (test code = 48929-3) [facility] METABOLIC [id number] 17:46:00 Test Item Value Reference Range Interpretation Comments SODIUM (BEAKER) (test 141 meq/L 135-148 code = 381) POTASSIUM (BEAKER) 4.3 meq/L 3.6-5.5 (test code = 379) CHLORIDE (BEAKER) 111 meq/L 98-106 H (test code = 382) CO2 (BEAKER) (test 23 meq/L code = 355) BLOOD UREA NITROGEN 26 mg/dL 12-07 (BEAKER) (test code = 354) CREATININE (BEAKER) 1.00 mg/dL 0.50-1.20 (test code = 358) GLUCOSE RANDOM 127 mg/dL 70-110 H (BEAKER) (test code = 652) CALCIUM (BEAKER) 8.3 mg/dL 8.5-10.5 L (test code = 697) EGFR (BEAKER) (test INSUFFIC IENT CLINICAL code = 1092) DATA TO CALCULA TE ESTIMATED GFR. Boat[employer] Supervisor ID - [id number] ID - [id number] ID - [id number] ID - [id number] ID - [id number] ID - [id number] ID - [id number] ID - [id number] ID - [id number] ID - [id number] ID - [id number] ID - [id number] ID - [id number] Reactive [id number] 17:40:00 Test Item Value Reference Range Interpretation Comments CRP (test code = 676) 0.41 mg/dL 0-0.5 HALEY (test code = HALEY) Boat[employer] Supervisor ID - [id number] Lab Interpretation (test Normal code = 67923-5) [facility] [id number] 17:40:00 Test Item Value Reference Range Interpretation Comments C-REACTIVE PROTEIN (BEAKER) (test 0.41 mg/dL 0.00-0.50 code = 676) [employer] Supervisor ID - [id number] acid, [id number] 17:38:00 Test Item Value Reference Range Interpretation Comments Lactate, Venous (test code 0.75 mmol/L 0.5-2 = 2872) HALEY (test code = HALEY) Boat[employer] Supervisor ID - [id number] ID - [id number] ID - [id number] ID - [id number] Lab Interpretation (test Normal code = 63387-9) [facility], [id number] 17:38:00 Test Item Value Reference Range Interpretation Comments LACTATE BLOOD 0.75 mmol/L See_Comment [Automated me ssage] VENOUS (2) (BEAKER) The syst em which (test code = 2872) generated this result transmitted ref erence range: 0.50-<2. 00. The reference range was not used to interpr et this result as normal/abnormal . Boat[employer] Supervisor ID - [id number] ID - [id number] ID - [id number] ID - [id number] with platelet count + automated [id number] 17:25:00 Test Item Value Reference Range Interpretation Comments WBC (test code = 6690-2) 10.8 See_Comment H [A utomated message] The system [employer] generated this result transmitted ref erence range: 4.0 - 10 .0 K/L. The refe rence range was not u sed to interpret this result as normal/abnor mal. RBC (test code = 789-8) 3.60 See_Comment L [Au tomated message] The system [employer] generated this result transmitted ref erence range: 4.00 - 5 .00 M/L. The refe rence range was not u sed to interpret this result as normal/abnor mal. MCHC (test code = 786-4) 30.4 See_Comment L [A utomated message] The system [employer] generated this result transmitted ref erence range: [...] See_Comment [Aut omated message] 777-3) The system [employer] generated this result transmitted ref erence range: 150 - 43 0 K/CU MM. The referen ce range was not u sed to interpret this result as normal/abnor mal. MPV (test code = 9.7 fL 6-11.5 95756-6) nRBC (test code = 413) 0 See_Comment [Aut omated message] The system [employer] generated this result transmitted ref erence range: [...] H [Aut omated message] 670) The system [employer] generated this result transmitted ref erence range: 1.80 - 8 .00 K/L. The refe rence range was not u sed to interpret this result as normal/abnor mal. # Lymphs (test code = 0.90 See_Comment L [Auto mated message] 414) The system [employer] generated this result transmitted ref erence range: 1.48 - 4 .50 K/L. The refe rence range was not u sed to interpret this result as normal/abnor mal. # Monos (test code = 0.73 See_Comment [Autom ated message] 415) The system [employer] generated this result transmitted ref erence range: 0.00 - 1 .30 K/L. The refe rence range was not u sed to interpret this result as normal/abnor mal. # Eos (test code = 416) 0.23 See_Comment [Au tomated message] The system [employer] generated this result transmitted ref erence range: 0.00 - 0 .50 K/L. The refe rence range was not u sed to interpret this result as normal/abnor mal. # Baso (test code = 417) 0.04 See_Comment [A utomated message] The system [employer] generated this result transmitted ref erence range: 0.00 - 0 .20 K/L. The refe rence range was not u sed to interpret this result as normal/abnor mal. Immature 2 % 0-0 H Granulocytes-Relative (test code = 2801) Lab Interpretation (test Abnormal code = 29710-6) [facility] W/PLT COUNT & AUTO [id number] 17:25:00 Test Item Value Reference Range Interpretation [...] 0-0 H PERCENT (BEAKER) (test code = 7220)
[2020-07-11 19:37] LABS: Absolute Lymphocytes (CBC) 0.2 K/uL (0.7-4.9); Basophils % 0.4 % (0-1.3); Hematocrit 29.7 % (36.0-45.0); Lymphocytes % 1.1 % (15.3-44.8); MPV 8.8 fL (7.6-11.3); RBC Red Blood Cell Count 3.29 M/uL (3.86-4.86)
[2020-07-11 19:51] LABS: Protime INR 2.08
[2020-07-11] MEDS ORDERED: NA CHLORIDE 0.9% 1,000 ML ONE ×2 (19:53→23:47)
[2020-07-11 20:04] LABS: ALT/SGPT 27 U/L (12-78); AST/SGOT 9 U/L (15-37); Albumin 2.6 g/dL (3.4-5.0); Alkaline Phosphatase 82 U/L (45-117); BUN Blood Urea Nitrogen 35 mg/dL (7-18); Bicarbonate 24 mmol/L (21-32); Bilirubin Direct 0.1 mg/dL (0-0.2); Bilirubin Total 0.5 mg/dL (0.2-1.0); Glucose Level 363 mg/dL (74-106); Magnesium 2.1 mg/dL (1.8-2.4); NT PRO-BNP 125 pg/mL (<125); Potassium 4.9 mmol/L (3.5-5.1); Protein, Total 6.3 g/dL (6.4-8.2); Sodium Level 139 mmol/L (136-145); Troponin (Emerg Dept Use Only) < 0.02 ng/mL (0.0-0.045)
--- NOTE | 2020-07-11 20:50 | RAD REPORT ---
EXAM DESCRIPTION: CT - Head Brain Wo Cont - 07/11/2020 8:20 pm CLINICAL HISTORY: WEAKNESS COMPARISON: Head Brain Wo Cont dated 03/16/2017 TECHNIQUE: Axial 5 mm thick images of the head were obtained without IV contrast. All CT scans are performed using dose optimization technique as appropriate and may include automated exposure control or mA/KV adjustment according to patient size. FINDINGS: No intracranial hemorrhage, mass, edema or shift of mid-line structures. No acute infarcti on changes seen. No abnormal extra-axial fluid collections. Ventricles are normal. Mastoid air cells and visualized portions of the paranasal sinuses are clear. No acute bony findings. No significant change from comparision. IMPRESSION: Negative non-contrast CT head examination.
--- NOTE | 2020-07-11 20:52 | RAD REPORT ---
EXAM DESCRIPTION: RAD - Chest Single View - 07/11/2020 8:14 pm CLINICAL HISTORY: Shortness of breath PT HAS BEEN EXTREMELY SLEEPY AND LOW BP. BGL 344 AND REPORTS HAS BEEN HIGH IN THE LAST 2 WEEKS. REPOR TS RT ARM PAIN. COMPARISON: Portable May 26 TECHNIQUE: AP portable chest image was obtained 07/11/2020 8:14 pm . FINDINGS: Exam is limited by portable technique, shallow inspiration and large body habitus. No larg e mass or consolidation identifiable. Central vasculature is mildly prominent. Mild interstitial yves a or infiltrate can be masked. Heart and vasculature are normal. No measurable pleural effusion and no pneumothorax. No acute bony abnormality seen. No acute aortic findings suspected. IMPRESSION: Exam is significantly limited. No gross abnormality seen. Interstitial markings are accentuated by the exam limitations. This potentially masks early edema or infiltrate.
[2020-07-11 21:16] LABS: Blood Morphology Comment NOT SEEN (NOT SEEN); Platelet Estimate ADEQ
--- NOTE | 2020-07-11 21:58 | ER ---
Nurse's Notes [facility] Name: Kathia Phipps Age: 64 yrs Sex: Female : 1955 Arrival Date: 07/11/2020 Time: 18:32 Bed 13 Private MD: Diagnosis: Cellulitis of abdominal wall;Sepsis, unspecified organism;Weakness Presentation: 07/11 18:33 Chief complaint: EMS states: Pt has been extremely sleepy and Low BP. BGL 344 and ca1 reports has been high in the last 2 weeks. BP 90/53, HR 84. Reports R arm pain. Coronavirus screen: Client denies travel out of the [place] in the last 14 days. At this time, the client does not indicate any symptoms associated with coronavirus-19. Ebola Screen: Patient negative for fever greater than or equal to 101.5 degrees Fahrenheit, and additional compatible Ebola Virus Disease symptoms Patient denies exposure to infectious person. Patient denies travel to an Ebola-affected area in the 21 days before illness onset. No symptoms or risks identified at this time. Initial Sepsis Screen: Does the patient meet any 2 criteria? No. Patient's initial sepsis screen is negative. Does the patient have a suspected source of infection? No. Patient's initial sepsis screen is negative. Risk Assessment: Do you want to hurt yourself or someone else? Patient reports no desire to harm self or others. Onset of symptoms was July 11, 2020. 18:33 Method Of Arrival: EMS: [facility] ca1 18:33 Acuity: ISSAC 3 ca1 Historical: - Allergies: 18:36 Cipro PO; ca1 18:36 Clarithromycin; ca1 18:36 Farmiga; ca1 18:36 Farxiga; ca1 18:36 Januvia; ca1 18:36 Latex, Natural Rubber; ca1 18:36 Levaquin; ca1 18:36 Morphine; ca1 18:36 PENICILLINS; ca1 18:36 sitagliptin; ca1 18:36 Ibuprofen; ca1 23:28 Vancomycin; ca1 - PMHx: 18:36 Diabetes - IDDM; Fibromyalgia; Hypothyroidism; Hypertension; GERD; dyslipidemia; Sleep ca1 Apnea; chronic fatigue; vitamin d deficiency; Vitiligo; - PSHx: 18:36 Tubal ligation; ca1 - Immunization history:: Adult Immunizations up to date, Client reports having NOT received the Covid vaccine. Pneumococcal vaccine is up to date, Flu vaccine is not up to date. - Social history:: Smoking status: Patient denies any tobacco usage or history of. Screenin:40 Abuse screen: Denies threats or abuse. Denies injuries from another. Nutritional ca1 screening: No deficits noted. Tuberculosis screening: No symptoms or risk factors identified. Fall Risk IV access (20 points). Gait- Impaired (20 pts.). Total Orozco Fall Scale indicates Low Risk Score (25-44 pts). Fall prevention measures have been instituted. Side Rails Up X 2 Family Present and informed to notify staff if they need to leave bedside As available Patient and Family Educated on Fall Prevention Program and strategies. Assessment: 18:40 General: Appears in no apparent distress. uncomfortable, obese, Behavior is calm, ca1 cooperative, appropriate for age. Pain: Complains of pain in right arm Pain currently is 6 out of 10 on a pain scale. Pain began this morning. Neuro: Level of Consciousness is awake, alert, obeys commands, Oriented to person, place, time, situation. Cardiovascular: Heart tones S1 S2 present Capillary refill < 3 seconds Patient's skin is warm and dry. Cardiovascular: Rhythm is sinus rhythm. Respiratory: Airway is patent Respiratory effort is even, unlabored, Respiratory pattern is regular, symmetrical, Breath sounds are clear bilaterally. GI: Abdomen is obese, Bowel sounds present X 4 quads. Abd is soft and non tender X 4 quads. : No signs and/or symptoms were reported regarding the genitourinary system. EENT: No signs and/or symptoms were reported regarding the EENT system. Musculoskeletal: Circulation, motion, and sensation intact. Capillary refill < 3 seconds. 19:40 Reassessment: Patient appears in no apparent distress at this time. No changes from ca1 previously documented assessment. Patient and/or family updated on plan of care and expected duration. Pain level reassessed. Patient is alert, oriented x 3, equal unlabored respirations, skin warm/dry/pink. 20:40 Reassessment: Patient appears in no apparent distress at this time. No changes from ca1 previously documented assessment. Patient and/or family updated on plan of care and expected duration. Pain level reassessed. Patient is alert, oriented x 3, equal unlabored respirations, skin warm/dry/pink. 21:40 Reassessment: Patient appears in no apparent distress at this time. No changes from ca1 previously documented assessment. Patient and/or family updated on plan of care and expected duration. Pain level reassessed. Patient is alert, oriented x 3, equal unlabored respirations, skin warm/dry/pink. 22:23 Reassessment: Patient appears in no apparent distress at this time. No changes from ca1 previously documented assessment. Patient is alert, oriented x 3, equal unlabored respirations, skin warm/dry/pink. 23:20 Reassessment: Patient appears in no apparent distress at this time. Patient and/or ca1 family updated on plan of care and expected duration. Pain level reassessed. Patient is alert, oriented x 3, equal unlabored respirations, skin warm/dry/pink. 07/12 00:18 Reassessment: Patient appears in no apparent distress at this time. Patient is alert, ca1 oriented x 3, equal unlabored respirations, skin warm/dry/pink. Vital Signs: 07/11 18:33 BP 120 / 60; Pulse 91; Resp 18; Temp 98.3(O); Pulse Ox 98% on 2 lpm NC; Weight 197.77 ca1 kg (R); Height 5 ft. 2 in. (157.48 cm) (R); Pain 8/10; 19:10 BP 96 / 55; Pulse 88; Resp 19 S; Pulse Ox 98% on 2 lpm NC; ca1 20:00 BP 94 / 54; Pulse 86; Resp 18 S; Pulse Ox 97% on 2 lpm NC; ca1 21:00 BP 94 / 60; Pulse 84; Resp 18 S; Pulse Ox 99% on 2 lpm NC; ca1 22:38 BP 100 / 62; Pulse 84; Resp 19 S; Pulse Ox 98% on 2 lpm NC; ca1 22:58 BP 136 / 65; Pulse 88; Resp 16 S; Pulse Ox 100% on 2 lpm NC; ca1 23:20 BP 137 / 91; Pulse 88; Resp 18 S; Pulse Ox 99% on 2 lpm NC; ca1 07/12 00:18 BP 144 / 60; Pulse 88; Resp 18 S; Pulse Ox 99% on 2 lpm NC; ca1 07/11 18:33 Body Mass Index 79.74 (197.77 kg, 157.48 cm) ca1 ED Course: 07/11 18:32 Patient arrived in ED. ca1 18:35 Triage completed. ca1 18:36 Arm band placed on right wrist. ca1 18:40 Patient has correct armband on for positive identification. Bed in low position. Call ca1 light in reach. Side rails up X2. lithographic press operator apprentice on. Pulse ox on. NIBP on. Warm blanket given. 19:09 Dixie Roy, NICOLE is Primary Nurse. ca1 19:19 Cabrera Sevilla MD is Attending Physician. tw4 19:31 Inserted saline lock: 22 gauge in right forearm, using aseptic technique. Blood ca1 collected. 19:31 Initial lab(s) drawn, by me, sent to lab. First set of blood cultures drawn by me. ca1 20:14 XRAY Chest (1 view) In Process Unspecified. EDMS 20:20 CT Head Brain wo Cont In Process Unspecified. EDMS 21:57 Arturo Mercer DO is Hospitalizing Provider. tw4 22:18 Raffaele Ocsar MD is Hospitalizing Provider. la1 07/12 00:18 No provider procedures requiring assistance completed. Patient admitted, IV remains in ca1 place. Administered Medications: 07/11 19:34 Drug: NS 0.9% 1000 ml Route: IV; Rate: 1 bolus; Site: right forearm; ca1 20:30 Follow up: Response: No adverse reaction; IV Status: Completed infusion; IV Intake: ca1 1000ml 21:57 Drug: Cleocin (clindamycin) 600 mg Route: IVPB; Infused Over: 30 mins; Site: right ca1 forearm; 22:20 Follow up: Response: No adverse reaction; IV Status: Completed infusion ca1 22:58 Drug: vancoMYCIN 1 grams Route: IVPB; Infused Over: 2 hrs; Site: right forearm; ca1 23:08 Follow up: Response: Adverse reaction, Physician notified; IV Status: Order to ca1 discontinue infusion; Adverse reaction Vomiting 23:08 Drug: Zofran (Ondansetron) 4 mg Route: IVP; Site: right forearm; ca1 23:26 Follow up: Response: No adverse reaction; Nausea is decreased ca1 07/12 00:16 Drug: fentaNYL (PF) 25 mcg Route: IVP; Site: right forearm; ca1 00:17 Follow up: Response: No adverse reaction; Pain is decreased; RASS: Alert and Calm (0) ca1 Intake: 07/11 20:30 IV: 1000ml; Total: 1000ml. ca1 Outcome: 21:57 Decision to Hospitalize by Provider. tw4 07/12 00:18 Admitted to Med/surg accompanied by tech, via stretcher, room 210, with oxygen, with ca1 chart, Report called to NICOLE Márquez 00:19 Condition: stable ca1 00:19 Instructed on the need for admit. 00:58 Patient left the ED. iw Signatures: Dispatcher [employer] EDTita Post RN RN iw Alberto Quach, ANNUAL GIVING OFFICER-C ANNUAL GIVING OFFICER-Cla1 Cabrera Sevilla MD MD tw4 Dixie Roy RN RN ca1 Corrections: (The following items were deleted from the chart) 07/11 22:22 18:40 EENT: No signs and/or symptoms were reported regarding the EENT system. ca1 ca1 22:39 19:10 BP 96 / 55; Pulse 88bpm; Resp 19bpm; Spontaneous; Pulse Ox 98% RA; ca1 ca1 22:39 20:00 BP 94 / 54; Pulse 86bpm; Resp 18bpm; Spontaneous; Pulse Ox 97% RA; ca1 ca1 22:39 21:00 BP 94 / 60; Pulse 84bpm; Resp 18bpm; Spontaneous; Pulse Ox 99% RA; ca1 ca1 23:21 22:58 BP 136 / 65; Pulse 88bpm; Resp 16bpm; Spontaneous; Pulse Ox 100% RA; ca1 ca1
--- NOTE | 2020-07-11 21:59 | EDPHYS ---
Physician Documentation [facility] Name: Kathia Phipps Age: 64 yrs Sex: Female : 1955 Arrival Date: 07/11/2020 Time: 18:32 Bed 13 Private MD: ED Physician Cabrera Sevilla HPI: 07/11 20:34 This 64 yrs old Female presents to ER via EMS with complaints of Fatigue. tw4 20:34 The patient presents with dizziness, generalized weakness. Onset: The symptoms/episode tw4 began/occurred just prior to arrival, this morning. Context: occurred at home. Modifying factors: The symptoms are alleviated by nothing, the symptoms are aggravated by nothing. Associated signs and symptoms: The patient has no apparent associated signs or symptoms. Severity of symptoms: At their worst the symptoms were moderate in the emergency department the symptoms are unchanged. The patient has not experienced similar symptoms in the past. Historical: - Allergies: 18:36 Cipro PO; ca1 18:36 Clarithromycin; ca1 18:36 Farmiga; ca1 18:36 Farxiga; ca1 18:36 Januvia; ca1 18:36 Latex, Natural Rubber; ca1 18:36 Levaquin; ca1 18:36 Morphine; ca1 18:36 PENICILLINS; ca1 18:36 sitagliptin; ca1 18:36 Ibuprofen; ca1 23:28 Vancomycin; ca1 - PMHx: 18:36 Diabetes - IDDM; Fibromyalgia; Hypothyroidism; Hypertension; GERD; dyslipidemia; Sleep ca1 Apnea; chronic fatigue; vitamin d deficiency; Vitiligo; - PSHx: 18:36 Tubal ligation; ca1 - Immunization history:: Adult Immunizations up to date, Client reports having NOT received the Covid vaccine. Pneumococcal vaccine is up to date, Flu vaccine is not up to date. - Social history:: Smoking status: Patient denies any tobacco usage or history of. ROS: 20:34 Constitutional: Negative for fever, chills, and weight loss, Eyes: Negative for injury, tw4 pain, redness, and discharge, Cardiovascular: Negative for chest pain, palpitations, and edema, Respiratory: Negative for shortness of breath, cough, wheezing, and pleuritic chest pain, Abdomen/GI: Negative for abdominal pain, nausea, vomiting, diarrhea, and constipation, Back: Negative for injury and pain, MS/Extremity: Negative for injury and deformity, Skin: Negative for injury, rash, and discoloration. 20:34 Neuro: Positive for weakness. Exam: 20:34 Constitutional: This is a well developed, well nourished patient who is awake, alert, tw4 and in no acute distress. Head/Face: Normocephalic, atraumatic. 20:34 Chest/axilla: Normal chest wall appearance and motion. Nontender with no deformity. No lesions are appreciated. Cardiovascular: Regular rate and rhythm with a normal S1 and S2. No gallops, murmurs, or rubs. Normal PMI, no JVD. No pulse deficits. Respiratory: Lungs have equal breath sounds bilaterally, clear to auscultation and percussion. No rales, rhonchi or wheezes noted. No increased work of breathing, no retractions or nasal flaring. Abdomen/GI: Soft, non-tender, with normal bowel sounds. No distension or tympany. No guarding or rebound. No evidence of tenderness throughout. Back: No spinal tenderness. No costovertebral tenderness. Full range of motion. MS/ Extremity: Pulses equal, no cyanosis. Neurovascular intact. Full, normal range of motion. Neuro: Awake and alert, GCS 15, oriented to person, place, time, and situation. Cranial nerves II-XII grossly intact. Motor strength 5/5 in all extremities. Sensory grossly intact. Cerebellar exam normal. Normal gait. 20:34 Constitutional: The patient appears obese. Vital Signs: 18:33 BP 120 / 60; Pulse 91; Resp 18; Temp 98.3(O); Pulse Ox 98% on 2 lpm NC; Weight 197.77 ca1 kg (R); Height 5 ft. 2 in. (157.48 cm) (R); Pain 8/10; 19:10 BP 96 / 55; Pulse 88; Resp 19 S; Pulse Ox 98% on 2 lpm NC; ca1 20:00 BP 94 / 54; Pulse 86; Resp 18 S; Pulse Ox 97% on 2 lpm NC; ca1 21:00 BP 94 / 60; Pulse 84; Resp 18 S; Pulse Ox 99% on 2 lpm NC; ca1 22:38 BP 100 / 62; Pulse 84; Resp 19 S; Pulse Ox 98% on 2 lpm NC; ca1 22:58 BP 136 / 65; Pulse 88; Resp 16 S; Pulse Ox 100% on 2 lpm NC; ca1 23:20 BP 137 / 91; Pulse 88; Resp 18 S; Pulse Ox 99% on 2 lpm NC; ca1 07/12 00:18 BP 144 / 60; Pulse 88; Resp 18 S; Pulse Ox 99% on 2 lpm NC; ca1 07/11 18:33 Body Mass Index 79.74 (197.77 kg, 157.48 cm) ca1 MDM: 07/11 19:19 Patient medically screened. 07/12 07:04 Data reviewed: vital signs, nurses notes. Data interpreted: Pulse oximetry: tw4 Interpretation: normal. 07/11 19:09 Order name: Basic Metabolic Panel tt3 07/11 19:09 Order name: CBC with Diff tt07/11 19:09 Order name: LFT's; Complete Time: 21:13 tt3 07/11 21:13 Interpretation: Normal except: AST 9; TP 6.3; ALB 2.6; GLOB 3.7; A/G 0.7. tw07/11 19:09 Order name: Magnesium; Complete Time: 21:13 tt3 07/11 21:14 Interpretation: Normal except: MG 2.1. 07/11 19:09 Order name: NT PRO-BNP; Complete Time: 21:13 tt3 07/11 21:14 Interpretation: NT PRO-BNP 125. 07/11 19:09 Order name: PT-INR; Complete Time: 21:13 tt3 07/11 21:13 Interpretation: Normal except: PT 24.1. 07/11 19:09 Order name: Troponin (emerg Dept Use Only); Complete Time: 21:13 tt3 07/11 21:14 Interpretation: Within normal limits: TROPED < 0.02. 07/11 19:09 Order name: Lactate; Complete Time: 21:13 tt3 07/11 21:14 Interpretation: Normal except: LAC 2.2. 07/11 19:09 Order name: Blood Culture Adult (2) tt3 07/11 19:09 Order name: Basic Metabolic Panel; Complete Time: 21:13 EDMS 07/11 21:14 Interpretation: Normal except: CRE 1.68; BUN 35; GLUC 363; CL 108; GFR 31. 07/11 19:09 Order name: CBC with Automated Diff; Complete Time: 21:27 EDUT 07/11 21:27 Interpretation: WBC 19.30; HGB 9.2; RBC 3.29; HCT 29.7; MCV 90.1; MCHC 31.2; LYMA 0.2; tw4 NEUT A 18.6; MN% 1.8; LYM% 1.1; MIO% 96.5. 07/11 21:12 Order name: Manual Differential; Complete Time: 21:27 EDUT 07/11 21:45 Order name: COVID-19 : Document "Date of Symptom Onset" if Symptomatic. tt3 07/11 21:46 Order name: CORONAVIRUS EDUT 07/11 19:09 Order name: XRAY Chest (1 view); Complete Time: 21:13 tt3 07/11 19:09 Order name: EKG; Complete Time: 19:10 tt3 07/11 19:09 Order name: Cardiac monitoring; Complete Time: 19:35 tt3 07/11 19:09 Order name: EKG - Nurse/Tech; Complete Time: 20:12 tt3 07/11 19:58 Order name: CT Head Brain wo Cont; Complete Time: 21:13 tw4 07/11 21:46 Order name: Urinalysis tw4 07/11 21:54 Order name: CT Abd/Pelvis - Without Contrast tw4 07/11 21:54 Order name: CT Chest Wo Con tw4 07/11 23:34 Order name: SARS-COV-2 RT PCR EDUT 07/11 19:09 Order name: IV Saline Lock; Complete Time: 19:31 tt3 07/11 19:09 Order name: Labs collected and sent; Complete Time: 19:31 tt3 07/11 19:09 Order name: O2 Per Protocol; Complete Time: 19:31 tt3 07/11 19:09 Order name: O2 Sat Monitoring; Complete Time: 19:31 tt3 EC/30 20:49 Rate is 82 beats/min. Rhythm is regular. QRS [place] is Normal. SC interval is normal. QRS tw4 interval is normal. QT interval is normal. No Q waves. T waves are Normal. No ST changes noted. Clinical impression: NSR w/ Non-specific ST/T Changes. Interpreted by me. Reviewed by me. Administered Medications: 19:34 Drug: NS 0.9% 1000 ml Route: IV; Rate: 1 bolus; Site: right forearm; ca1 20:30 Follow up: Response: No adverse reaction; IV Status: Completed infusion; IV Intake: ca1 1000ml 21:57 Drug: Cleocin (clindamycin) 600 mg Route: IVPB; Infused Over: 30 mins; Site: right ca1 forearm; 22:20 Follow up: Response: No adverse reaction; IV Status: Completed infusion ca1 22:58 Drug: vancoMYCIN 1 grams Route: IVPB; Infused Over: 2 hrs; Site: right forearm; ca1 23:08 Follow up: Response: Adverse reaction, Physician notified; IV Status: Order to ca1 discontinue infusion; Adverse reaction Vomiting 23:08 Drug: Zofran (Ondansetron) 4 mg Route: IVP; Site: right forearm; ca1 23:26 Follow up: Response: No adverse reaction; Nausea is decreased ca1 07/12 00:16 Drug: fentaNYL (PF) 25 mcg Route: IVP; Site: right forearm; ca1 00:17 Follow up: Response: No adverse reaction; Pain is decreased; RASS: Alert and Calm (0) ca1 Disposition: 07/11/20 21:57 Hospitalization ordered by Raffaele Oscar for Inpatient Admission. Preliminary diagnosis are Cellulitis of abdominal wall, Sepsis, unspecified organism, Weakness. - Bed requested for Telemetry/MedSurg (Inpatient). - Status is Inpatient Admission. iw - Condition is Stable. - Problem is an ongoing problem. - Symptoms are unchanged. Signatures: Dispatcher [employer] EDMS Tita Mancilla RN RN iw Alberto Quach, HUMAN SERVICES CASE MANAGER-C HUMAN SERVICES CASE MANAGER-Cla1 Traci Parada RN RN Cabrera Sevilla MD MD tw4 Dixie Roy RN RN ca1 Benito Cortez tt3 Corrections: (The following items were deleted from the chart) 07/11 22:18 21:57 Hospitalization Ordered by Arturo Mercer DO for Inpatient Admission. Preliminary la1 diagnosis is Cellulitis of abdominal wall; Sepsis, unspecified organism; Weakness. Bed requested for Telemetry/MedSurg (Inpatient). Status is Inpatient Admission. Condition is Stable. Problem is an ongoing problem. Symptoms are unchanged. tw4 23:45 22:18 07/11/2020 21:57 Hospitalization Ordered by Raffaele Oscar MD for Inpatient iw Admission. Preliminary diagnosis is Cellulitis of abdominal wall; Sepsis, unspecified organism; Weakness. Bed requested for Telemetry/MedSurg (Inpatient). Status is Inpatient Admission. Condition is Stable. Problem is an ongoing problem. Symptoms are unchanged. la1 07/12 00:58 07/11 23:45 07/11/2020 21:57 Hospitalization Ordered by Raffaele Oscar MD for Inpatient iw Admission. Preliminary diagnosis is Cellulitis of abdominal wall; Sepsis, unspecified organism; Weakness. Bed requested for Telemetry/MedSurg (Inpatient). Status is Inpatient Admission. Condition is Stable. Problem is an ongoing problem. Symptoms are unchanged. iw
[2020-07-11] MEDS ORDERED: CLINDAMYCIN 600MG/D5W 600 MG/50 ML BAG IV ONE (22:16)
--- NOTE | 2020-07-11 22:38 | P.HP ---
Certification for Inpatient Patient admitted to: Inpatient With expected LOS: >2 Midnights Patient will require the following post-hospital care: None Practitioner: I am a practitioner with admitting privileges, knowledge of patient current condition, hospital course, and medical plan of care. Services: Services provided to patient in accordance with Admission requirements found in Title 42 Section 412.3 of the Code of Federal Regulations Patient History Date of Service: 07/11/20 Primary Care Provider: Dr. Mireles Reason for admission: Abdominal wall cellulitis History of Present Illness: 64-year-old female with history of morbid obesity with multiple ulcerations to the pannus, diabetes mellitus type 2, hypertension, hyperlipidemia, hypothyroidism presents emergency department for malaise, fatigue, low blood pressure. Patient reports over the course of the last 1-2 weeks she has noticed more ulcerations to her pannus. On exam patient is pannus is quite large, edematous, erythematous, multiple ulcerations leaking serosanguineous fluid. Labs in the emergency department significant for white blood cell count 19.3 hemoglobin 9.2 hematocrit 29.7 13% bands creatinine 1.68 GFR 31, glucose [address] abdomen pelvis pending, chest x-ray unremarkable. ED provider wishes to admit for sepsis, abdominal wall cellulitis. When I saw the patient in the ER she is awake, alert, oriented x3. Patient is with blood pressure around 100 systolic at this time, not tachycardic or febrile, appears to be sepsis without severe sepsis or septic shock at this time. Patient with multiple drug allergies to antibiotics, patient reports she has recently tolerated Rocephin and does not recall an allergy to vancomycin. Will continue with vancomycin/cefepime at this time. Allergies dapagliflozin [From Farxiga] Allergy (Verified 05/18/20 22:47) Nausea/Vomiting latex Allergy (Verified 09/22/17 11:05) Hives/Rash levofloxacin Allergy (Verified 05/18/20 22:47) Hives/Rash morphine Allergy (Verified 09/22/17 11:05) Hallucination Penicillins Allergy (Verified 12/24/19 01:51) Shortness of breath sitagliptin [From Januvia] Allergy (Verified 12/24/19 02:00) Shortness of breath vancomycin Allergy (Verified 03/11/20 20:49) Shortness of breath ciprofloxacin Adverse Reaction (Verified 05/18/20 22:47) Anaphylaxis clarithromycin Adverse Reaction (Verified 05/18/20 22:47) Shortness of breath Home Medications: Amlodipine Besylate 10 mg PO DAILY 05/18/20 Doxazosin [Cardura*] 1 mg PO BEDTIME 05/18/20 Empagliflozin [Jardiance] 25 mg PO DAILY 05/18/20 Fluticasone/Vilanterol [Breo Ellipta 100-25 Mcg INH] 25 mg IN DAILY 05/18/20 Furosemide [Lasix*] 20 mg PO DAILY 05/18/20 Insulin Aspart [Novolog Flexpen] 10 units SQ TID 05/18/20 Insulin Degludec [Tresiba Flextouch U-100] 60 units SQ BID 05/18/20 Ketoconazole/Niacinamide [Ketoconazole 2%-Niacin 4% Crm] 1 anuel DAILY 05/18/20 Levothyroxine Sodium [Synthroid] 200 mcg PO DAILY 05/18/20 Losartan Potassium [Cozaar] 100 mg PO DAILY 05/18/20 Metoprolol Succinate [Toprol Xl*] 50 mg PO BEDTIME 05/18/20 Milnacipran HCl [Savella] 100 mg PO BID 05/18/20 Pentoxifylline 400 mg PO DAILY 05/18/20 Potassium Oral Tab [Klor-Con 10 mEq Tab*] 20 meq PO DAILY 05/18/20 Pregabalin [Lyrica] 150 mg PO TID* 05/18/20 Ropinirole HCl [Requip*] 0.25 mg PO BEDTIME 05/18/20 Silver Sulfadiazine [Ssd] 1 anuel DAILY 05/18/20 Spironolactone [Aldactone*] 25 mg PO DAILY 05/18/20 Topiramate [Topiramate ER] 1 tab PO BID 05/18/20 Vit D3/Vit K2/Calc Frutoborate [Move Free Pbybz-Asnamx-Y6-D3] 2 tab PO DAILY 05/18/20 Rivaroxaban [Xarelto] 1 each PO DAILY #1 tab.ds.pk 05/20/20 Rivaroxaban [Xarelto] 20 mg PO DAILY #30 tab 05/20/20 - Past Medical/Surgical History Diabetic: Yes -: DM -: HTN -: Hypothyroidism -: Morbid obesity -: Gerd -: Fibromyalgia -: Depression -: COPD -: dyslipidemia -: chronic fatigue -: sleep apnea -: R Heel spur repair -: Tubal ligation Psychosocial/ Personal History: She is and lives at home. She has 3 children - Family History Father -: Heart disease, Hypertension, Diabetes, Stroke Notes: STELLA'S DISEASE. Mother -: Heart disease, Cancer Notes: MYASTENIA GRAVIS. breast ca. still living - Social History Smoking Status: Never smoker Alcohol use: No CD- Drugs: No Caffeine use: No Place of Residence: Home Review of Systems 10-point ROS is otherwise unremarkable General: Chills, Weakness, Malaise Gastrointestinal: As per HPI Integumentary: As per HPI Physical Examination - Physical Exam General: Alert, In no apparent distress, Oriented x3, Obese HEENT: Atraumatic, PERRLA, Mucous membr. moist/pink Neck: Supple, 2+ carotid pulse no bruit, No LAD Respiratory: Clear to auscultation bilaterally, Normal air movement Cardiovascular: Regular rate/rhythm, Normal S1 S2 Gastrointestinal: Normal bowel sounds, No rebound, No guarding, Other (Morbidly obese and very large pannus, pannus and is edematous, erythematous with multiple small ulcerations draining serosanguineous fluids.), Tenderness Musculoskeletal: No tenderness Integumentary: Tenderness/swelling, Erythema, Warmth, Other (Ulcerations present to the abdominal wall) Neurological: Normal speech, Normal strength at 5/5 x4 extr, Normal tone, Normal affect - Studies Laboratory Data (last 24 hrs) 07/11/20 19:26: PT 24.1 H, INR 2.08 07/11/20 19:26: WBC 19.30 H, Hgb 9.2 L, Hct 29.7 L, Plt Count 206 07/11/20 19:26: Sodium 139, Potassium 4.9, BUN 35 H, Creatinine 1.68 H, Glucose 363 H, Magnesium 2.1, Total Bilirubin 0.5, AST 9 L, ALT 27, Alkaline Phosphatase 82 Assessment and Plan - Plan Assessment Sepsis without severe sepsis or septic shock secondary to abdominal wall cellulitis complicated with multiple ulcerations Recent history of DVT/PE Diabetes mellitus type 2 Hypertension, hyperlipidemia, GERD, hypothyroidism Morbid obesity Plan Sepsis without severe sepsis or septic shock secondary to abdominal wall cellulitis complicated with multiple ulcerations: Continue with IV vancomycin/cefepime. Patient with multiple allergies to antibiotics but has tolerated Rocephin recently and does not have any known allergy to vancomycin. Blood cultures obtained, will obtain wound cultures. Consult infectious disease/wound healing for additional assistance in management as there is a significant amount of cellulitis and leukocytosis. Will continue Xarelto for DVT treatment/prophylaxis. Recent history of DVT/PE: Patient currently on therapy with Xarelto, will continue his medication. No signs of acute heart failure, patient not hypoxic, tachycardic at this time. Continue to monitor closely. Diabetes mellitus type 2: A.c. HS Accu-Cheks insulin therapy. A1c with morning labs. Hypertension, hyperlipidemia, GERD, hypothyroidism: Continue medication, thyroid panel morning labs, a GI prophylaxis. Morbid obesity: Will need to address lifestyle changes in detail, patient with significant obesity and very large pannus is contributing to her frequent infections. Discharge Plan: Home Plan to discharge in: Greater than 2 days - Advance Directives Does patient have a Living Will: No Does patient have a Durable POA for Healthcare: No - Code Status/Comfort Care Code Status Assessed: Yes (Full code) Critical Care: No Time Spent Managing Pts Care (In Minutes): 55
[2020-07-11] MEDS ORDERED: NA CHLORIDE 0.9% 250 ML ONE (22:39)
[2020-07-11] MEDS ORDERED: VANCOMYCIN 1 GM/VIAL ONE (22:39)
[2020-07-11] MEDS ORDERED: ONDANSETRON 4 MG/2 ML VIAL ONE ×2 (23:22→23:25)
[2020-07-11] MEDS ORDERED: MORPHINE 4 MG/ML SYR ONE (23:22)
[2020-07-11] MEDS ORDERED: FENTANYL CITR 100 MCG/2 ML ONE (23:51)
[2020-07-12] MEDS ORDERED: ONDANSETRON 4 MG/2 ML VIAL IV PRN (00:35)
[2020-07-12] MEDS: NA CHLORIDE 0.9% 1,000 ML IV SCH ×4 (01:51→23:00)
--- NOTE | 2020-07-12 01:52 | P.INFCA ---
Sepsis Focused Assessment - Focused Assessment Complete? Sepsis Focused Assessment Completed?: Yes - Sepsis Screen Result Severe Sepsis: Negative Septic Shock: Negative - Evaluation Current stage of sepsis: Ruled out Reason for ruling out sepsis: Lac imp, VSS - Vital Signs Reviewed: Yes Temperature: 97 F Heart rate: 93 Blood Pressure: 120/82 Respiratory Rate: 18 O2 Sat by Pulse Oximetry: 96 - Examination Date exam was performed: 07/12/20 Time exam was performed: 00:30
[2020-07-12] MEDS: INSULIN -REGULAR HUMAN 50 UNIT/0.5 ML ML SQ SCH ×5 (02:03→21:03)
[2020-07-12 05:36] LABS: Urine Appearance CLOUDY (Clear); Urine Bilirubin NEGATIVE (Negative); Urine Blood NEGATIVE (Negative); Urine Color YELLOW (Yellow); Urine Glucose 3+ (Negative); Urine Protein NEGATIVE (Negative); Urine Specific Gravity 1.025 (1.005-1.030); Urine pH 5.5 (5.0-7.0)
[2020-07-12 05:42] LABS: Urine Microscopic Reflex ORDER UMIC
[2020-07-12 05:49] LABS: Absolute Lymphocytes (CBC) 0.4 K/uL (0.7-4.9); Basophils % 0.3 % (0-1.3); Hematocrit 29.5 % (36.0-45.0); Lymphocytes % 2.5 % (15.3-44.8); MPV 8.9 fL (7.6-11.3); RBC Red Blood Cell Count 3.26 M/uL (3.86-4.86)
[2020-07-12 05:52] LABS: Albumin 2.5 g/dL (3.4-5.0); Bilirubin Total 0.4 mg/dL (0.2-1.0); Ferritin 91.3 ng/mL (8-388); Magnesium 2.2 mg/dL (1.8-2.4); Potassium 4.6 mmol/L (3.5-5.1); Protein, Total 6.1 g/dL (6.4-8.2); Thyroid Stimulating Hormone 0.273 uIU/mL (0.360-3.740)
[2020-07-12 05:55] LABS: Urine Bacteria >50 /HPF (<20); Urine RBC <5 /HPF (NONE SEEN)
[2020-07-12] MEDS: METOPROLOL XL 50 MG TAB PO SCH (09:00)
[2020-07-12] MEDS ORDERED: RIVAROXABAN 10 MG TABLET PO SCH (09:00)
[2020-07-12] MEDS: HOME MED 1 EA UNK (Vit D3/Vit K2/Calc Frutoborate [Move Free Ultra-Borate-K2-D3] Tablet) PO SCH (09:00)
[2020-07-12] MEDS: MILNACIPRAN HCL 100 MG PO SCH ×2 (09:00→21:03)
[2020-07-12] MEDS ORDERED: TOPIRAMATE 50 MG PO SCH (09:00)
[2020-07-12] MEDS ORDERED: CEFEPIME 1 GM/VIAL IV SCH (09:00)
[2020-07-12] MEDS ORDERED: POTASSIUM CL SA 10 MEQ TAB PO SCH (09:00)
[2020-07-12] MEDS: HOME MED 1 EA UNK (Fluticasone/Vilanterol [Breo Ellipta 200-25 Mcg Inh] Blst.W.Dev) IH SCH (09:00)
[2020-07-12] MEDS: PENTOXIFYLLINE ER 400 MG TAB PO SCH (09:13)
[2020-07-12] MEDS: PREGABALIN 150 MG CAP PO SCH ×3 (09:13→17:00)
[2020-07-12] MEDS: LOSARTAN POTASSIUM 50 MG TABLET PO SCH (09:14)
[2020-07-12] MEDS: AMLODIPINE 10 MG TAB PO SCH (09:14)
[2020-07-12] MEDS: LEVOTHYROXINE SOD 0.1 MG TAB PO SCH (09:14)
[2020-07-12] MEDS: CEFEPIME/SWI 1gm 10 ML IVP SCH ×2 (09:14→21:03)
[2020-07-12] MEDS: CLINDAMYCIN INJ 600 MG in NA CHLORIDE 0.9% 50 ML IV SCH ×2 (09:20→17:44)
[2020-07-12] MEDS: ACETAMINOPHEN 500 MG TAB PO PRN (09:20)
--- NOTE | 2020-07-12 13:45 | RAD REPORT ---
EXAM DESCRIPTION: CT - Chest Abd Pelvis Wo Con - 07/12/2020 4:57 am CLINICAL HISTORY: The patient is 64 years old and is Female; sepsis TECHNIQUE: Axial computed tomography images of the chest, abdomen and pelvis without intravenous con trast. Sagittal and coronal reformatted images were created and reviewed. This CT exam was perfor med using one or more of the following dose reduction techniques: automated exposure control, adjus tment of the mA and/or kV according to patient size, and/or use of iterative reconstruction technique . COMPARISON: CT May 26, 2020 and March 08, 2020 FINDINGS: LIMITATIONS: Suboptimal study secondary to artifact related to patient body habitus. CHEST: LUNGS: Areas of atelectasis within the lung bases is noted. PLEURAL SPACE: Unremarkable. No significant effusion. No pneumothorax. HEART: No cardiomegaly. No pericardial effusion. ABDOMEN: LIVER: The liver is enlarged and diffusely fatty. GALLBLADDER AND BILE DUCTS: The gallbladder is filled with multiple calcified gallstones. There i s no ductal dilatation. PANCREAS: Mild fatty infiltration of pancreas is noted. No ductal dilation. SPLEEN: Unremarkable. ADRENALS: Unremarkable. No mass. KIDNEYS AND URETERS: No obstructing stones. No hydronephrosis. No perinephric fluid. STOMACH AND BOWEL: The stomach is not well distended. Minimal food contents are present within th e stomach. The small bowel is normal in caliber. A moderate amount stool is present throughout colon. There is no mucosal thickening or evidence of bowel obstruction. PELVIS: APPENDIX: No findings to suggest acute appendicitis. BLADDER: Unremarkable. No stones. REPRODUCTIVE: Unremarkable as visualized. CHEST, ABDOMEN and PELVIS: INTRAPERITONEAL SPACE: Unremarkable. No significant fluid collection. No free air. BONES/JOINTS: Multilevel degenerative change of the spine is present. SOFT TISSUES: Mild skin thickening and stranding of the lower aspect of the pannus is present. Th e appearance is unchanged from prior exam. VASCULATURE: Unremarkable. No aortic aneurysm. LYMPH NODES: Unremarkable. No enlarged lymph nodes. IMPRESSION: 1. Skin thickening of the lower pannus, similar to prior exam. 2. Otherwise, unremarkable noncontrasted CT of the chest, abdomen, and pelvis. Electronically signed by: Ling Alfaro MD 07/11/2020 11:28 PM CDT Due to temporary technical issues with the PACS/Fluency reporting system, reports are being signed by the in house radiologists without review as a courtesy to insure prompt reporting. The interpreting radiologist is fully responsible for the content of the report.
[2020-07-12] MEDS: SPIRONOLACTONE 25 MG PO SCH (15:33)
[2020-07-12] MEDS: HYDROCODONE/APAP 10/325 TAB PO PRN (17:43)
[2020-07-12] MEDS: DOXAZOSIN 2 MG TAB PO SCH ×3 (21:00→21:26)
[2020-07-12] MEDS ORDERED: DOXAZOSIN 1 MG TAB PO SCH (21:00)
[2020-07-12] MEDS: TOPIRAMATE PO SCH (21:02)
[2020-07-12] MEDS: ROPINIROLE HCL 0.25 MG TAB PO SCH (21:03)
--- NOTE | 2020-07-12 22:45 | P.CNS ---
Primary Care Provider: Dr. Mireles Chief Complaint: Abdominal wall cellulitis History of Present Illness: Pt is a 64 y/o female with past medical hx of hypothyrodisim, obesity recently diagnosed PE on eliquis which she suspects maybe causing allergic reactions present with an infected pannus in her lower abdmoninal fold.. Pt denies any fevers or chills, just endorses a feeling of unwellness. Pt denies any nausea and vomiting. Reports adequate food intake except for recently due to worries of her needing surgery and all that it requires. In the ED, vitals signs were stable except fro requiring oxygen which she was using at home, labs pertinent for an elevated creatinine of 1. 6, leukocytosis with bandemia. Renal has been consulted for ZHANE on CKD. Allergies dapagliflozin [From Farxiga] Allergy (Verified 07/12/20:31) dry mouth, stomach cramps latex Allergy (Verified 07/12/20 01:31) Hives/Rash levofloxacin Allergy (Verified 07/12/20:31) Hives/Rash morphine Allergy (Verified 07/12/20:31) Hallucination Penicillins Allergy (Verified 07/12/20:31) Shortness of breath sitagliptin [From Januvia] Allergy (Verified 07/12/20:31) Shortness of breath vancomycin Allergy (Verified 07/12/20:31) Nausea/Vomiting ciprofloxacin Adverse Reaction (Verified 07/12/20:31) Anaphylaxis clarithromycin Adverse Reaction (Verified 07/12/20:31) Shortness of breath Home Medications: Amlodipine Besylate 10 mg PO DAILY 05/18/20 Doxazosin [Cardura*] 1 mg PO BEDTIME 05/18/20 Furosemide [Lasix*] 20 mg PO DAILYPRN PRN 05/18/20 Insulin Aspart [Novolog Flexpen] 15 units SQ TID 05/18/20 Insulin Degludec [Tresiba Flextouch U-100] 60 units SQ BID 05/18/20 Levothyroxine Sodium [Synthroid] 200 mcg PO DAILY 05/18/20 Losartan Potassium [Cozaar] 100 mg PO DAILY 05/18/20 Metoprolol Succinate [Toprol Xl*] 50 mg PO DAILY 05/18/20 Milnacipran HCl [Savella] 100 mg PO BID 05/18/20 Pentoxifylline 400 mg PO DAILY 05/18/20 Potassium Oral Tab [Klor-Con 10 mEq Tab*] 20 meq PO DAILY 05/18/20 Pregabalin [Lyrica] 150 mg PO TID* 05/18/20 Ropinirole HCl [Requip*] 0.25 mg PO BEDTIME 05/18/20 Spironolactone [Aldactone*] 40 mg PO DAILY 05/18/20 Topiramate [Topiramate ER] 1 tab PO BID 05/18/20 Vit D3/Vit K2/Calc Frutoborate [Move Free Wssyy-Bquros-G0-D3] 4,000 iu PO DAILY 05/18/20 Rivaroxaban [Xarelto] 20 mg PO DAILY #30 tab 05/20/20 Fluticasone/Vilanterol [Breo Ellipta 200-25 Mcg INH] 1 puff IH DAILY 07/12/20 Phentermine HCl 1 tab PO DAILY 07/12/20 - Past Medical/Surgical History Diabetic: Yes -: DM -: HTN -: Hypothyroidism -: Morbid obesity -: Gerd -: Fibromyalgia -: Depression -: COPD -: dyslipidemia -: chronic fatigue -: OBSTRUCTIVE sleep apnea -: VITILIGO; CHRONIC MIGRAINES; DM NEUROPATHY -: R Heel spur repair -: Tubal ligation Psychosocial/ Personal History: She is and lives at home. She has 3 children - Family History Father Medical History: Heart disease, Hypertension, Diabetes, Stroke Notes: STELLA'S DISEASE. Mother Medical History: Heart disease, Cancer Notes: MYASTHENIA GRAVIS. breast ca. still living - Social History Smoking Status: Never smoker Alcohol use: No CD- Drugs: No Caffeine use: Yes Place of Residence: Home Review of Systems 10-point ROS is otherwise unremarkable Physical Examination Temp Pulse Resp BP Pulse Ox 97.7 F 81 20 125/53 L 97 07/12/20 16:00 07/12/20 21:03 07/12/20 16:00 07/12/20 21:03 07/12/20 16:00 General: Alert, In no apparent distress HEENT: Atraumatic, PERRLA, Mucous membr. moist/pink, EOMI, Sclerae nonicteric Neck: Supple, 2+ carotid pulse no bruit, No LAD, Without JVD or thyroid abnormality Respiratory: Diminished Cardiovascular: Edema Gastrointestinal: Normal bowel sounds Musculoskeletal: No tenderness Laboratory Last Values WBC 19.30 K/uL (4.3-10.9) H 07/11/20 19:26 RBC 3.29 M/uL (3.86-4.86) L 07/11/20 19:26 Hgb 9.2 g/dL (12.0-15.0) L 07/11/20 19:26 Hct 29.7 % (36.0-45.0) L 07/11/20 19:26 MCV 90.1 fL (80-100) D 07/11/20 19:26 MCH 28.1 pg (27.0-35.0) 07/11/20 19:26 MCHC 31.2 g/dL (32.0-36.0) L 07/11/20 19:26 RDW 15.9 % (12.1-15.2) H 07/11/20 19:26 Plt Count 206 K/uL (152-406) 07/11/20 19:26 MPV 8.8 fL (7.6-11.3) 07/11/20 19:26 Neutrophils % 96.5 % (41.7-73.7) H 07/11/20 19:26 Lymphocytes % 1.1 % (15.3-44.8) L 07/11/20 19:26 Monocytes % 1.8 % (3.3-12.3) L 07/11/20 19:26 Eosinophils % 0.2 % (0-4.4) 07/11/20 19:26 Basophils % 0.4 % (0-1.3) 07/11/20 19:26 Absolute Neutrophils 18.6 K/uL (1.8-8.0) H 07/11/20 19:26 Segmented Neutrophils 84 % (40-80) H 07/11/20 19:26 Band Neutrophils 13 % (0-1) H* 07/11/20 19:26 Absolute Lymphocytes 0.2 K/uL (0.7-4.9) L 07/11/20 19:26 Lymphocytes 1 % (15-42) L 07/11/20 19:26 Monocytes 2 % (0-10) 07/11/20 19:26 Absolute Monocytes 0.3 K/uL (0.1-1.3) 07/11/20 19:26 Absolute Eosinophils 0.0 K/uL (0-0.5) 07/11/20 19:26 Absolute Basophils 0.1 K/uL (0-0.5) 07/11/20 19:26 Platelet Estimate Adeq 07/11/20 19:26 Morphology Comment Not seen (NOT SEEN) 07/11/20 19:26 PT 24.1 SECONDS (9.5-12.5) H 07/11/20 19:26 INR 2.08 07/11/20 19:26 Sodium 139 mmol/L (136-145) 07/11/20 19:26 Potassium 4.9 mmol/L (3.5-5.1) 07/11/20 19:26 Chloride 108 mmol/L (98-107) H 07/11/20 19:26 Carbon Dioxide 24 mmol/L (21-32) 07/11/20 19:26 BUN 35 mg/dL (7-18) H 07/11/20 19:26 Creatinine 1.68 mg/dL (0.55-1.3) H 07/11/20 19:26 Estimated GFR 31 mL/min (=/>90) L 07/11/20 19:26 Glucose 363 mg/dL (74-106) H 07/11/20 19:26 Lactic Acid 2.2 mmol/L (0.4-2.0) H 07/11/20 19:26 Calcium 8.0 mg/dL (8.5-10.1) L 07/11/20 19:26 Magnesium 2.1 mg/dL (1.8-2.4) 07/11/20 19:26 Total Bilirubin 0.5 mg/dL (0.2-1.0) 07/11/20 19:26 Direct Bilirubin 0.1 mg/dL (0-0.2) 07/11/20 19:26 AST 9 U/L (15-37) L 07/11/20 19:26 ALT 27 U/L (12-78) 07/11/20 19:26 Alkaline Phosphatase 82 U/L (45-117) 07/11/20 19:26 Rapid Troponin I < 0.02 ng/mL (0.0-0.045) 07/11/20 19:26 NT-Pro-B Natriuret Pep 125 pg/mL (<125) 07/11/20 19:26 Serum Total Protein 6.3 g/dL (6.4-8.2) L 07/11/20 19:26 Albumin 2.6 g/dL (3.4-5.0) L 07/11/20 19:26 Globulin 3.7 g/dL (2.3-3.5) H 07/11/20 19:26 Albumin/Globulin Ratio 0.7 (1.1-1.8) L 07/11/20 19:26 Urine Color Cancelled 07/11/20 21:46 Urine Appearance Cancelled 07/11/20 21:46 Urine pH Cancelled 07/11/20 21:46 Ur Specific [place] Cancelled 07/11/20 21:46 Glucose (UA)(Auto) Cancelled 07/11/20 21:46 Urine Ketones Cancelled 07/11/20 21:46 Urine Blood Cancelled 07/11/20 21:46 Urine Nitrite Cancelled 07/11/20 21:46 Urine Bilirubin Cancelled 07/11/20 21:46 Urine Urobilinogen Cancelled 07/11/20 21:46 Ur Leukocyte Esterase Cancelled 07/11/20 21:46 Ur Microscopic Review Cancelled 07/11/20 21:46 Urine Total Protein Cancelled 07/11/20 21:46 SARS-CoV-2 RNA (RT-PCR) Negative (NEGATIVE) 07/11/20 22:10 Imagings Data: Laboratory Results WBC 19.30 K/uL (4.3-10.9) H 07/11/20 19:26 RBC 3.29 M/uL (3.86-4.86) L 07/11/20 19:26 Hgb 9.2 g/dL (12.0-15.0) L 07/11/20 19:26 Hct 29.7 % (36.0-45.0) L 07/11/20 19:26 MCV 90.1 fL (80-100) D 07/11/20 19:26 MCH 28.1 pg (27.0-35.0) 07/11/20 19:26 MCHC 31.2 g/dL (32.0-36.0) L 07/11/20 19:26 RDW 15.9 % (12.1-15.2) H 07/11/20 19:26 Plt Count 206 K/uL (152-406) 07/11/20 19:26 MPV 8.8 fL (7.6-11.3) 07/11/20 19:26 Neutrophils % 96.5 % (41.7-73.7) H 07/11/20 19:26 Lymphocytes % 1.1 % (15.3-44.8) L 07/11/20 19:26 Monocytes % 1.8 % (3.3-12.3) L 07/11/20 19:26 Eosinophils % 0.2 % (0-4.4) 07/11/20 19:26 Basophils % 0.4 % (0-1.3) 07/11/20 19:26 Absolute Neutrophils 18.6 K/uL (1.8-8.0) H 07/11/20 19:26 Segmented Neutrophils 84 % (40-80) H 07/11/20 19:26 Band Neutrophils 13 % (0-1) H* 07/11/20 19:26 Absolute Lymphocytes 0.2 K/uL (0.7-4.9) L 07/11/20 19:26 Lymphocytes 1 % (15-42) L 07/11/20 19:26 Monocytes 2 % (0-10) 07/11/20 19:26 Absolute Monocytes 0.3 K/uL (0.1-1.3) 07/11/20 19:26 Absolute Eosinophils 0.0 K/uL (0-0.5) 07/11/20 19:26 Absolute Basophils 0.1 K/uL (0-0.5) 07/11/20 19:26 Platelet Estimate Adeq 07/11/20 19:26 Morphology Comment Not seen (NOT SEEN) 07/11/20 19:26 PT 24.1 SECONDS (9.5-12.5) H 07/11/20 19:26 INR 2.08 07/11/20 19:26 Sodium 139 mmol/L (136-145) 07/11/20 19:26 Potassium 4.9 mmol/L (3.5-5.1) 07/11/20 19:26 Chloride 108 mmol/L (98-107) H 07/11/20 19:26 Carbon Dioxide 24 mmol/L (21-32) 07/11/20 19:26 BUN 35 mg/dL (7-18) H 07/11/20 19:26 Creatinine 1.68 mg/dL (0.55-1.3) H 07/11/20 19:26 Estimated GFR 31 mL/min (=/>90) L 07/11/20 19:26 Glucose 363 mg/dL (74-106) H 07/11/20 19:26 Lactic Acid 2.2 mmol/L (0.4-2.0) H 07/11/20 19:26 Calcium 8.0 mg/dL (8.5-10.1) L 07/11/20 19:26 Magnesium 2.1 mg/dL (1.8-2.4) 07/11/20 19:26 Total Bilirubin 0.5 mg/dL (0.2-1.0) 07/11/20 19:26 Direct Bilirubin 0.1 mg/dL (0-0.2) 07/11/20 19:26 AST 9 U/L (15-37) L 07/11/20 19:26 ALT 27 U/L (12-78) 07/11/20 19:26 Alkaline Phosphatase 82 U/L (45-117) 07/11/20 19:26 Rapid Troponin I < 0.02 ng/mL (0.0-0.045) 07/11/20 19:26 NT-Pro-B Natriuret Pep 125 pg/mL (<125) 07/11/20 19:26 Serum Total Protein 6.3 g/dL (6.4-8.2) L 07/11/20 19:26 Albumin 2.6 g/dL (3.4-5.0) L 07/11/20 19:26 Globulin 3.7 g/dL (2.3-3.5) H 07/11/20 19:26 Albumin/Globulin Ratio 0.7 (1.1-1.8) L 07/11/20 19:26 Urine Color Cancelled 07/11/20 21:46 Urine Appearance Cancelled 07/11/20 21:46 Urine pH Cancelled 07/11/20 21:46 Ur Specific [place] Cancelled 07/11/20 21:46 Glucose (UA)(Auto) Cancelled 07/11/20 21:46 Urine Ketones Cancelled 07/11/20 21:46 Urine Blood Cancelled 05/30/21 21:46 Urine Nitrite Cancelled 07/11/20 21:46 Urine Bilirubin Cancelled 07/11/20 21:46 Urine Urobilinogen Cancelled 07/11/20 21:46 Ur Leukocyte Esterase Cancelled 07/11/20 21:46 Ur Microscopic Review Cancelled 07/11/20 21:46 Urine Total Protein Cancelled 07/11/20 21:46 SARS-CoV-2 RNA (RT-PCR) Negative (NEGATIVE) 07/11/20 22:10 Conclusions/Impression: Problems Zhane secondary to prerenal etiology Obesity Hypertension Hypothyrodisim Plan Agree with IVF Avoid nephrotoxins All electrolytes wnl. Strict i/o Blood pressure controlled, Thank you for this interesting consult. Will continue to follow.
[2020-07-13] MEDS: CLINDAMYCIN INJ 600 MG in NA CHLORIDE 0.9% 50 ML IV SCH ×3 (01:01→18:37)
[2020-07-13] MEDS: HYDROCODONE/APAP 10/325 TAB PO PRN ×3 (01:01→18:37)
[2020-07-13 03:49] LABS: Absolute Lymphocytes (CBC) 0.8 K/uL (0.7-4.9); Basophils % 0.4 % (0-1.3); Hematocrit 27.6 % (36.0-45.0); Lymphocytes % 7.2 % (15.3-44.8); MPV 9.1 fL (7.6-11.3); RBC Red Blood Cell Count 3.04 M/uL (3.86-4.86)
[2020-07-13 04:05] LABS: Albumin 2.3 g/dL (3.4-5.0); Bilirubin Total 0.3 mg/dL (0.2-1.0); Magnesium 2.1 mg/dL (1.8-2.4)
[2020-07-13] MEDS: LEVOTHYROXINE SOD 0.1 MG TAB PO SCH (07:30)
[2020-07-13] MEDS: INSULIN -REGULAR HUMAN 50 UNIT/0.5 ML ML SQ SCH ×4 (07:30→21:00)
[2020-07-13] MEDS: HOME MED 1 EA UNK (Vit D3/Vit K2/Calc Frutoborate [Move Free Ultra-Borate-K2-D3] Tablet) PO SCH (09:00)
[2020-07-13] MEDS: PREGABALIN 150 MG CAP PO SCH ×3 (09:00→18:36)
[2020-07-13] MEDS: AMLODIPINE 10 MG TAB PO SCH (09:00)
[2020-07-13] MEDS: TOPIRAMATE PO SCH ×2 (09:00→21:26)
[2020-07-13] MEDS: HOME MED 1 EA UNK (Fluticasone/Vilanterol [Breo Ellipta 200-25 Mcg Inh] Blst.W.Dev) IH SCH (09:00)
[2020-07-13] MEDS: PENTOXIFYLLINE ER 400 MG TAB PO SCH (09:00)
[2020-07-13] MEDS: CEFEPIME/SWI 1gm 10 ML IVP SCH ×2 (09:00→21:28)
[2020-07-13] MEDS: LOSARTAN POTASSIUM 50 MG TABLET PO SCH (09:00)
[2020-07-13] MEDS: MILNACIPRAN HCL 100 MG PO SCH ×2 (09:00→21:26)
[2020-07-13] MEDS: RIVAROXABAN 20 MG TABLET PO SCH (09:00)
[2020-07-13] MEDS: POTASSIUM CHLORIDE 20 MEQ PO SCH (09:00)
[2020-07-13] MEDS: SPIRONOLACTONE 25 MG PO SCH (09:00)
[2020-07-13] MEDS: METOPROLOL XL 50 MG TAB PO SCH (09:00)
--- NOTE | 2020-07-13 10:47 | P.PN ---
Subjective Date of Service: 07/13/20 Primary Care Provider: Dr. Mireles Chief Complaint: Abdominal wall cellulitis Patient, complaining of significant pain to right lower extremity. Patient's abdominal fat pad sets directly over the leg causing pain. Difficult alleviate the pressure. Vitals stable. Review of Systems 10-point ROS is otherwise unremarkable Physical Examination - Vital Signs Temperature: 97.7 F Blood Pressure: 128/52 Pulse: 85 Respirations: 20 Pulse Ox (%): 100 - Physical Exam General: Moderate distress, Obese HEENT: Atraumatic, Normocephalic Neck: Supple, 2+ carotid pulse no bruit Respiratory: Other (Decreased breath sounds/difficulty ascultating due to body habitus) Cardiovascular: Regular rate/rhythm Gastrointestinal: Distended, Tenderness, Masses (Abdominal wall inflammation with multiple wounds. Wounds draining serous fluid.) - Studies Temp Pulse Resp BP Pulse Ox 97.7 F 85 20 128/52 L 100 07/13/20 10:47 07/13/20 10:47 07/13/20 10:47 07/13/20 10:47 07/13/20 10:47 Allergy/AdvReac Type Severity Reaction Status Date / Time dapagliflozin [From Farxiga] Allergy dry mouth, Verified 07/12/20 01:31 stomach cramps latex Allergy Hives/Rash Verified 07/12/20 01:31 levofloxacin Allergy Hives/Rash Verified 07/12/20 01:31 morphine Allergy Hallucinati Verified 07/12/20 01:31 on Penicillins Allergy Shortness Verified 07/12/20 01:31 of breath sitagliptin [From Januvia] Allergy Shortness Verified 07/12/20 01:31 of breath vancomycin Allergy Nausea/Vomi Verified 07/12/20 01:31 ting ciprofloxacin AdvReac Anaphylaxis Verified 07/12/20 01:31 clarithromycin AdvReac Shortness Verified 07/12/20 01:31 of breath Assessment And Plan - Plan Antibiotics; clindamycin start: 07/12 stop: 07/25 Cefepime start: 07/12 stop: 07/25 Assessment: -Panniculitis with morbid obesity -diabetes mellitus type 2 -protein caloric malnutrition -anemia -hypothyroidism Plan: ta -continue on clindamycin cefepime for total antibiotic duration of 2 weeks. Wound and urine cultures taken on 07/12- preliminary report grew mixed skin hi, gram-negative rods, and a beta-hemolytic group B streptococci. Awaiting final reports. Patient started on probiotic. -to open wounds on panus : Apply Silvadene and covered with ABD pads and foam. -strict glucose monitoring for proper wound healing. Patient's most recent hemoglobin A1c was 8.5. -patient has low albumin at 2.3. Recommend supplemental Ensure protein drinks with meals. -medical management per primary team continue monitor CBC and BMP -continue monitor for signs infection Plan of care discussed with Dr. waters Thank you for consultation.
--- NOTE | 2020-07-13 13:28 | CON ---
History Of Present Illness: The patient is here with complaint of abdominal pain. She has received vancomycin in the ER. The patient was also having complaint of nausea, vomiting, chills, and came in to the hospital. After vancomycin infusion was started, the patient felt better. The patient is cu rrently being treated with clindamycin. She has significant history of morbid obesity sep sis with abdominal wall cellulitis involved in the pannus area. Allergies: THE PATIENT HAS MULTIPLE ALLERGIES TO THE ANTIBIOTIC INCLUDING PENICILLIN, MORPHINE, CIPR O, CLARITHROMYCIN, VANCOMYCIN, LEVAQUIN, LATEX. Past Medical History: Includes morbid obesity, diabetes mellitus, hypertension, hypothyroidism, GERD , fibromyalgia, depression, COPD, dyslipidemia, syndrome, sleep apnea, right heel spur, tu bal ligation. Social History: Nonsmoker, nondrinker. Family History: Noncontributory. Medication: Clindamycin, cefepime. See MAR for other medications. Review of Systems: A 10-point review was performed. Physical Examination: General: This is a 64-year-old female, lying in bed, not in any acute cardiopulmonary distress. Vital Signs: Temperature 98, pulse 84, respirations 20, blood pressure 137/59. Currently on 2 liter nasal cannula, right peripheral line. HEENT: Unremarkable. Neck: Supple. Lungs: Basal crackles. Heart: S1, S2. Regular. Abdomen: Obese. Bowel sounds present. Erythematous changes noted on the pannus area with small ope n wound also noted. Laboratory Data: Shows WBC 15.3, hemoglobin 9.4, platelets are 182. Chemistry shows sodium 139, pot assium 4.6, chloride 110, bicarb 26, BUN 34, creatinine 1.3, glucose is , albumin is 2.5. Procalcitonin is 0.17. Microdata: Blood cultures are pending. Urine culture is pending. Abdominal CT scan cancelled because of the patient's size. Chest x-ray done shows limitation due to patient's obesity. Assessment And Plan: A 64-year-old female with morbid obesity, coming in with cellulitis of her abdo belkis wall wounds and leukocytosis, protein-calorie malnourishment. The patient also has renal insuf ficiency. We will continue current antibiotic. Total course of 14 days. Prognosis is guarded. Con tinue supportive care. Thank you for consult. NF/MODL Voice ID: [id number] Report ID: [id number]
[2020-07-13] MEDS: NA CHLORIDE 0.9% 1,000 ML IV SCH (18:37)
[2020-07-13] MEDS: DOXAZOSIN 2 MG TAB PO SCH ×2 (21:00→21:26)
[2020-07-13] MEDS: ROPINIROLE HCL 0.25 MG TAB PO SCH (21:27)
[2020-07-14] MEDS: CLINDAMYCIN INJ 600 MG in NA CHLORIDE 0.9% 50 ML IV SCH ×3 (00:13→18:31)
[2020-07-14] MEDS: NA CHLORIDE 0.9% 1,000 ML IV SCH ×2 (02:35→05:10)
[2020-07-14 04:15] LABS: Absolute Lymphocytes (CBC) 0.7 K/uL (0.7-4.9); Basophils % 0.3 % (0-1.3); Hematocrit 25.8 % (36.0-45.0); Lymphocytes % 9.6 % (15.3-44.8); MPV 8.6 fL (7.6-11.3); RBC Red Blood Cell Count 2.87 M/uL (3.86-4.86)
[2020-07-14 04:52] LABS: Albumin 2.4 g/dL (3.4-5.0); Bilirubin Total 0.3 mg/dL (0.2-1.0); Magnesium 2.2 mg/dL (1.8-2.4); Potassium 4.4 mmol/L (3.5-5.1)
[2020-07-14] MEDS: HYDROCODONE/APAP 10/325 TAB PO PRN ×3 (05:11→18:30)
[2020-07-14] MEDS: POTASSIUM CHLORIDE 20 MEQ PO SCH (09:00)
[2020-07-14] MEDS: HOME MED 1 EA UNK (Vit D3/Vit K2/Calc Frutoborate [Move Free Ultra-Borate-K2-D3] Tablet) PO SCH (09:00)
[2020-07-14] MEDS: METOPROLOL XL 50 MG TAB PO SCH (09:00)
[2020-07-14] MEDS: LOSARTAN POTASSIUM 50 MG TABLET PO SCH (09:00)
--- NOTE | 2020-07-14 09:55 | P.PN ---
Subjective Date of Service: 07/14/20 Primary Care Provider: Dr. Mireles Chief Complaint: Abdominal wall cellulitis Patient, complaining of significant pain to right lower extremity. Patient still in significant amount of pain, vital signs within normal limits. Hemoglobin low. Review of Systems 10-point ROS is otherwise unremarkable Physical Examination - Vital Signs Temperature: 97.3 F Blood Pressure: 104/50 Pulse: 86 Respirations: 18 Pulse Ox (%): 98 - Studies Temp Pulse Resp BP Pulse Ox 97.3 F 86 18 104/50 L 98 07/14/20 08:00 07/14/20 08:00 07/14/20 08:00 07/14/20 08:00 07/14/20 08:00 Active Medications Acetaminophen (Acetaminophen 500 Mg Tab) 500 mg PO Q4HP PRN PRN Reason: Pain scale 2-4 (Mild) Last Admin: 07/12/20 09:20 Dose: 500 mg Documented by: Hydrocodone Bitart/Acetaminophen (Hydrocodone/Apap 10/325 Tab) 1 tab PO Q6H PRN PRN Reason: Pain scale 5-7 (Moderate) Last Admin: 07/14/20 05:11 Dose: 1 tab Documented by: Amlodipine Besylate (Amlodipine 10 Mg Tab) 10 mg PO DAILY [facility] Last Admin: 07/13/20 09:00 Dose: 10 mg Documented by: Doxazosin Mesylate (Doxazosin 2 Mg Tab) 1 mg PO BEDTIME [facility] Last Admin: 07/13/20 21:00 Dose: Not Given Documented by: Home Med (Spironolactone 25 Mg Tablets) 1 ea PO DAILY [facility] Last Admin: 07/13/20 09:00 Dose: 1 ea Documented by: Home Med (Fluticasone/Vilanterol [Breo Ellipta 200-25 Mcg Inh]) 1 puff IH DAILY [facility] Last Admin: 07/13/20 09:00 Dose: 1 puff Documented by: Home Med (Milnacipran Hcl [Savella]) 100 mg PO BID [facility] Last Admin: 07/13/20 21:26 Dose: 100 mg Documented by: Home Med (Vit D3/Vit K2/Calc Frutoborate [Move Free Ebcar-[id number]]) 4,000 iu PO DAILY [facility] Last Admin: 07/13/20 09:00 Dose: Not Given Documented by: Home Med (Topiramate [Topiramate Er]) 1 tab PO BID [facility] Last Admin: 07/13/20 21:26 Dose: 1 tab Documented by: Home Med (Potassium Chloride 20 Meq Er Tablets) 1 ea PO DAILY [facility] Last Admin: 07/13/20 09:00 Dose: Not Given Documented by: Sodium Chloride (Ns 1000 Ml Ivbag) 1,000 mls @ 100 mls/hr IV .Q10H [facility] Last Admin: 07/14/20 05:10 Dose: 1,000 mls Documented by: Clindamycin Phosphate 600 mg/ (Sodium Chloride) 54 mls @ 100 mls/hr IV Q8HR [facility]; Protocol Last Admin: 07/14/20 00:13 Dose: 54 mls Documented by: Cefepime HCl (Maxipime 1 Gm/10 Ml Ivp) 10 mls @ 120 mls/hr IVP Q12HR [facility] Last Admin: 07/13/20 21:28 Dose: 10 mls Documented by: Insulin Human Regular (Insulin -Regular Human 50 Unit/0.5 Ml Ml) 0 unit SQ ACHS [facility]; Protocol Last Admin: 07/13/20 21:00 Dose: 5 unit Documented by: Levothyroxine Sodium (Levothyroxine Sod 0.1 Mg Tab) 0.2 mg PO ACB [facility] Last Admin: 07/13/20 07:30 Dose: 0.2 mg Documented by: Losartan Potassium (Losartan Potassium 50 Mg Tablet) 100 mg PO DAILY [facility] Last Admin: 07/13/20 09:00 Dose: 100 mg Documented by: Metoprolol Succinate (Metoprolol Xl 50 Mg Tab) 50 mg PO DAILY [facility] Last Admin: 07/13/20 09:00 Dose: 50 mg Documented by: Ondansetron HCl (Ondansetron 4 Mg/2 Ml Vial) 4 mg IV Q6HP PRN PRN Reason: NAUSEA / VOMITING Pentoxifylline (Pentoxifylline Er 400 Mg Tab) 400 mg PO DAILY [facility] Last Admin: 07/13/20 09:00 Dose: 400 mg Documented by: Pregabalin (Pregabalin 150 Mg Cap) 150 mg PO TID* [facility] Last Admin: 07/13/20 18:36 Dose: 150 mg Documented by: Rivaroxaban (Rivaroxaban 20 Mg Tablet) 20 mg PO DAILY [facility] Last Admin: 07/13/20 09:00 Dose: Not Given Documented by: Ropinirole HCl (Ropinirole Hcl 0.25 Mg Tab) 0.25 mg PO BEDTIME [facility] Last Admin: 07/13/20 21:27 Dose: 0.25 mg Documented by: Silver Sulfadiazine (Silver Sulfadiazine 1% 50 Gm) 1 appl TOP BID [facility] Sodium Chloride (Flush Normal Saline 10 Ml) 10 ml IV BID [facility] Last Admin: 07/13/20 21:00 Dose: Not Given Documented by: Assessment And Plan - Plan Physical Exam: General: Moderate distress, Obese HEENT: Atraumatic, Normocephalic Neck: Supple, 2+ carotid pulse no bruit Respiratory: Other (Decreased breath sounds/difficulty ascultating due to body habitus) Cardiovascular: Regular rate/rhythm Gastrointestinal: Distended, Tenderness, Masses (Abdominal wall inflammation with multiple wounds. Wounds draining serous fluid.) Antibiotics clindamycin start: 07/12 stop: 07/25 Cefepime start: 07/12 stop: 07/25 Assessment: -Panniculitis with morbid obesity -diabetes mellitus type 2 -protein caloric malnutrition -anemia -hypothyroidism Plan: -continue on clindamycin and cefepime for total antibiotic duration of 2 weeks. wound cultures taken on 07/12 grew: Enterococus faecalis and Enterobacter cloacea. Urine culture grew: Pantoea agglomerans. Both wound cultures show sensitivity to cefepime. Continue dual antibiotic therapy at this time. -to open wounds on panus : Apply Silvadene and covered with ABD pads and foam. -strict glucose monitoring for proper wound healing. Patient's most recent hemoglobin A1c was 8.5. -patient has low albumin at 2.3. Recommend supplemental Ensure protein drinks with meals. -medical management per primary team continue monitor CBC and BMP -continue monitor for signs infection Plan of care discussed with Dr. waters Thank you for consultation.
--- NOTE | 2020-07-14 10:40 | P.PN ---
Subjective Date of Service: 07/16/20 Primary Care Provider: Dr. Mireles Chief Complaint: Abdominal wall cellulitis Pt doing well. No complaints Physical Examination - Vital Signs Temperature: 97.3 F Blood Pressure: 104/50 Pulse: 86 Respirations: 18 Pulse Ox (%): 98 - Physical Exam General: Alert, In no apparent distress, Obese HEENT: Atraumatic, PERRLA, EOMI Neck: Supple, JVD not distended Respiratory: Diminished Cardiovascular: Edema Capillary refill: <2 Seconds Gastrointestinal: Normal bowel sounds Musculoskeletal: No tenderness Integumentary: No rashes Assessment & Plan Physician Review Additional Text: Problems Aura secondary to prerenal etiology Obesity Hypertension Hypothyrodisim Plan D/C IVF Avoid nephrotoxins; held losartan. May resume once creatinine is <1. Monitor blood pressure if needs to add another blood pressure medication. consider optimizing beta isaac or adding hydrazine 50mg po tid. All electrolytes wnl. Strict i/o Blood pressure controlled, Will continue to follow.
[2020-07-14] MEDS: CEFEPIME/SWI 1gm 10 ML IVP SCH ×2 (11:23→20:42)
[2020-07-14] MEDS: PENTOXIFYLLINE ER 400 MG TAB PO SCH (11:24)
[2020-07-14] MEDS: LEVOTHYROXINE SOD 0.1 MG TAB PO SCH (11:25)
[2020-07-14] MEDS: AMLODIPINE 10 MG TAB PO SCH (11:25)
[2020-07-14] MEDS: MILNACIPRAN HCL 100 MG PO SCH ×2 (11:25→20:44)
[2020-07-14] MEDS: TOPIRAMATE PO SCH ×2 (11:26→20:44)
[2020-07-14] MEDS: SPIRONOLACTONE 25 MG PO SCH (11:26)
[2020-07-14] MEDS: HOME MED 1 EA UNK (Fluticasone/Vilanterol [Breo Ellipta 200-25 Mcg Inh] Blst.W.Dev) IH SCH (11:27)
[2020-07-14] MEDS: SILVER SULFADIAZINE 1% 50 GM TOP SCH ×2 (11:27→20:44)
[2020-07-14] MEDS: INSULIN -REGULAR HUMAN 50 UNIT/0.5 ML ML SQ SCH ×4 (11:30→20:43)
--- NOTE | 2020-07-14 12:04 | EKG ---
Test Date: 2020-07-11 Test Time: 20:08:52 Motor Scooter Repairer: ABRAN MEASUREMENT RESULTS: Intervals: Rate: 82 WA: 118 QRSD: 74 QT: 392 QTc: 457 [place]: P: 37 WA: 118 QRS: 10 T: 54 INTERPRETIVE STATEMENTS: Normal sinus rhythm Low voltage QRS Borderline ECG Compared to ECG 05/26/2020 15:47:32 Low QRS voltage now present Electronically Signed On 07-14-20 11:55:01 CDT by Edilberto Hernandez
[2020-07-14] MEDS: PREGABALIN 150 MG CAP PO SCH ×3 (12:19→17:00)
[2020-07-14] MEDS: RIVAROXABAN 20 MG TABLET PO SCH (18:30)
[2020-07-14] MEDS: DOXAZOSIN 2 MG TAB PO SCH (20:42)
[2020-07-14] MEDS: ROPINIROLE HCL 0.25 MG TAB PO SCH (20:42)
[2020-07-15] MEDS: CLINDAMYCIN INJ 600 MG in NA CHLORIDE 0.9% 50 ML IV SCH ×3 (01:54→17:08)
[2020-07-15] MEDS ORDERED: DIPHENHYDRAMINE 50 MG/ML VIAL IV ONE (03:58)
[2020-07-15] MEDS: LEVOTHYROXINE SOD 0.1 MG TAB PO SCH (04:05)
[2020-07-15 04:32] LABS: Absolute Lymphocytes (CBC) 0.8 K/uL (0.7-4.9); Basophils % 0.6 % (0-1.3); Hematocrit 27.2 % (36.0-45.0); Lymphocytes % 10.7 % (15.3-44.8); MPV 8.7 fL (7.6-11.3); RBC Red Blood Cell Count 3.02 M/uL (3.86-4.86)
[2020-07-15 05:07] LABS: Albumin 2.2 g/dL (3.4-5.0); Bilirubin Total 0.2 mg/dL (0.2-1.0); Magnesium 2.2 mg/dL (1.8-2.4); Potassium 4.6 mmol/L (3.5-5.1)
[2020-07-15 05:09] LABS: Blood Morphology Comment NOTED (NOT SEEN); Platelet Estimate ADEQ; Polychromasia 1+
[2020-07-15] MEDS: CEFEPIME/SWI 1gm 10 ML IVP SCH ×2 (08:56→20:59)
[2020-07-15] MEDS: AMLODIPINE 10 MG TAB PO SCH (08:56)
[2020-07-15] MEDS: PENTOXIFYLLINE ER 400 MG TAB PO SCH (08:57)
[2020-07-15] MEDS: RIVAROXABAN 20 MG TABLET PO SCH (08:58)
[2020-07-15] MEDS: PREGABALIN 150 MG CAP PO SCH ×3 (08:58→17:11)
[2020-07-15] MEDS: METOPROLOL XL 50 MG TAB PO SCH (08:58)
[2020-07-15] MEDS: INSULIN -REGULAR HUMAN 50 UNIT/0.5 ML ML SQ SCH ×4 (08:58→21:01)
[2020-07-15] MEDS: POTASSIUM CHLORIDE 20 MEQ PO SCH (08:59)
[2020-07-15] MEDS: SPIRONOLACTONE 25 MG PO SCH (08:59)
[2020-07-15] MEDS: HOME MED 1 EA UNK (Fluticasone/Vilanterol [Breo Ellipta 200-25 Mcg Inh] Blst.W.Dev) IH SCH (08:59)
[2020-07-15] MEDS: HOME MED 1 EA UNK (Vit D3/Vit K2/Calc Frutoborate [Move Free Ultra-Borate-K2-D3] Tablet) PO SCH (09:00)
[2020-07-15] MEDS: MILNACIPRAN HCL 100 MG PO SCH ×2 (09:00→21:00)
[2020-07-15] MEDS: SILVER SULFADIAZINE 1% 50 GM TOP SCH ×2 (09:01→21:00)
[2020-07-15] MEDS: TOPIRAMATE PO SCH ×2 (09:01→21:01)
--- NOTE | 2020-07-15 10:42 | P.PN ---
Subjective Date of Service: 07/12/20 Patient still with cellulitis. Abdominal pain persistent. Patient will get General surgery consultation. Patient needs definitive therapy and will talk to surgery regarding plan of care Review of Systems 10-point ROS is otherwise unremarkable Physical Examination - Vital Signs Temperature: 97.9 F Blood Pressure: 129/61 Pulse: 81 Respirations: 19 Pulse Ox (%): 99 - Physical Exam General: Alert, In no apparent distress, Oriented x3, Obese HEENT: Atraumatic, PERRLA, EOMI Neck: Supple, JVD not distended Respiratory: Clear to auscultation bilaterally, Normal air movement Cardiovascular: Regular rate/rhythm, Normal S1 S2 Gastrointestinal: Normal bowel sounds, Soft and benign, Non-distended, Other (Patient with large pannus which extends all the way down to the in the-weighs about 70-80 lb) Integumentary: Tenderness/swelling, Erythema Neurological: Sensation intact, Cranial nerves 3-12 intact - Studies Medications List Reviewed: Yes Assessment & Plan - Problems (Diagnosis) (1) Panniculitis Current Visit: Yes Status: Acute (2) Cellulitis, abdominal wall Current Visit: Yes Status: Acute (3) History of DVT (deep vein thrombosis) Current Visit: Yes Status: Acute (4) COPD (chronic obstructive pulmonary disease) Current Visit: No Status: Acute (5) Morbid obesity with BMI of 70 and over, adult Current Visit: No Status: Acute (6) Stage III pressure ulcer Current Visit: No Status: Acute (7) Type II diabetes mellitus Current Visit: No Status: Acute (8) Hyperlipidemia Current Visit: No Status: Chronic Qualifiers: (9) Hypertension Onset Date: 09/24/17 Current Visit: No Status: Chronic Qualifiers: Hypertension type: essential hypertension (10) Hypothyroidism Onset Date: 09/24/17 Current Visit: No Status: Chronic Qualifiers: (11) Type 2 diabetes mellitus Current Visit: No Status: Chronic Qualifiers: Diabetes mellitus mcfp insulin use: without mcfp use Diabetes mellitus complication status: with kidney complications Diabetes mellitus complication detail: with chronic kidney disease Chronic kidney disease stage: stage 3 (moderate) Chronic kidney disease stage 3 subtype: stage 3a (GFR 45- 59) Qualified Code(s): E11.22 - Type 2 diabetes mellitus with diabetic chronic kidney disease; N18.31 - Chronic kidney disease, stage 3a (12) Vitiligo Current Visit: No Status: Chronic - Plan 1. Continue with IV antibiotic 2. Continue with local wound care 3. Wound care consultation/surgical consultation 4. Gentle IV hydration 5. Monitor CBC 6. Strict blood sugar monitoring 7. Pain control 8. GI and DVT prophylaxis Discharge Plan: Home Plan to discharge in: Greater than 2 days - Advance Directives Does patient have a Living Will: No Does patient have a Durable POA for Healthcare: No - Code Status/Comfort Care Code Status Assessed: Yes Code Status: Full Code Critical Care: No Time Spent Managing PTS Care (In Minutes): 35
--- NOTE | 2020-07-15 10:59 | P.PN ---
Date of Service: 07/13/20 Subjective Continue with antibiotic therapy. Clinical symptoms are improving. However, patient will need definitive treatment. Will discuss with surgery Review of Systems 10-point ROS is otherwise unremarkable Physical Examination - Vital Signs Reviewed - Physical Exam General: Alert, In no apparent distress, Oriented x3, Obese Respiratory: Clear to auscultation bilaterally, Normal air movement Cardiovascular: Regular rate/rhythm, Normal S1 S2 Gastrointestinal: Normal bowel sounds, Soft and benign, Non-distended, Other (Patient with large pannus which extends all the way down to the in the-weighs about 70-80 lb) - Studies Medications List Reviewed: Yes Assessment & Plan - Problems (Diagnosis) (1) Panniculitis Current Visit: Yes Status: Acute (2) Cellulitis, abdominal wall Current Visit: Yes Status: Acute (3) History of DVT (deep vein thrombosis) Current Visit: Yes Status: Acute (4) COPD (chronic obstructive pulmonary disease) Current Visit: No Status: Acute (5) Morbid obesity with BMI of 70 and over, adult Current Visit: No Status: Acute (6) Stage III pressure ulcer Current Visit: No Status: Acute (7) Type II diabetes mellitus Current Visit: No Status: Acute (8) Hyperlipidemia Current Visit: No Status: Chronic Qualifiers: (9) Hypertension Onset Date: 09/24/17 Current Visit: No Status: Chronic Qualifiers: Hypertension type: essential hypertension (10) Hypothyroidism Onset Date: 09/24/17 Current Visit: No Status: Chronic Qualifiers: (11) Type 2 diabetes mellitus Current Visit: No Status: Chronic Qualifiers: Diabetes mellitus oil heaterman insulin use: without oil heaterman use Diabetes mellitus complication status: with kidney complications Diabetes mellitus complication detail: with chronic kidney disease Chronic kidney disease stage: stage 3 (moderate) Chronic kidney disease stage 3 subtype: stage 3a (GFR 45- 59) Qualified Code(s): E11.22 - Type 2 diabetes mellitus with diabetic chronic kidney disease; N18.31 - Chronic kidney disease, stage 3a (12) Vitiligo Current Visit: No Status: Chronic - Plan Continue with plan of care as mentioned below: 1. Continue with IV antibiotic 2. Continue with local wound care 3. Wound care consultation/surgical consultation 4. Gentle IV hydration 5. Monitor CBC 6. Strict blood sugar monitoring 7. Pain control 8. GI and DVT prophylaxis
--- NOTE | 2020-07-15 11:00 | P.PN ---
Date of Service: 07/14/20 Subjective Continue with plan of care. Spoke with surgery. They advised for definitive intervention under the care of bariatric in Plastic surgery. Will try to transfer to tertiary care facility Review of Systems 10-point ROS is otherwise unremarkable Physical Examination - Vital Signs Reviewed - Physical Exam General: Alert, In no apparent distress, Oriented x3, Obese Respiratory: Clear to auscultation bilaterally, Normal air movement Cardiovascular: Regular rate/rhythm, Normal S1 S2 Gastrointestinal: Normal bowel sounds, Soft and benign, Non-distended, Other (Patient with large pannus which extends all the way down to the in the-weighs about 70-80 lb) - Studies Medications List Reviewed: Yes Assessment & Plan - Problems (Diagnosis) (1) Panniculitis Current Visit: Yes Status: Acute (2) Cellulitis, abdominal wall Current Visit: Yes Status: Acute (3) History of DVT (deep vein thrombosis) Current Visit: Yes Status: Acute (4) COPD (chronic obstructive pulmonary disease) Current Visit: No Status: Acute (5) Morbid obesity with BMI of 70 and over, adult Current Visit: No Status: Acute (6) Stage III pressure ulcer Current Visit: No Status: Acute (7) Type II diabetes mellitus Current Visit: No Status: Acute (8) Hyperlipidemia Current Visit: No Status: Chronic Qualifiers: (9) Hypertension Onset Date: 09/24/17 Current Visit: No Status: Chronic Qualifiers: Hypertension type: essential hypertension (10) Hypothyroidism Onset Date: 09/24/17 Current Visit: No Status: Chronic Qualifiers: (11) Type 2 diabetes mellitus Current Visit: No Status: Chronic Qualifiers: Diabetes mellitus regional intermodal truck driver insulin use: without regional intermodal truck driver use Diabetes mellitus complication status: with kidney complications Diabetes mellitus complication detail: with chronic kidney disease Chronic kidney disease stage: stage 3 (moderate) Chronic kidney disease stage 3 subtype: stage 3a (GFR 45- 59) Qualified Code(s): E11.22 - Type 2 diabetes mellitus with diabetic chronic kidney disease; N18.31 - Chronic kidney disease, stage 3a (12) Vitiligo Current Visit: No Status: Chronic - Plan Continue with plan of care as mentioned below: 1. Continue with IV antibiotic 2. Continue with local wound care 3. Wound care consultation/surgical consultation appreciated; transfer to tertiary care facility 4. Gentle IV hydration 5. Monitor CBC 6. Strict blood sugar monitoring 7. Pain control 8. GI and DVT prophylaxis
--- NOTE | 2020-07-15 11:01 | P.PN ---
Date of Service: 07/15/20 Subjective Patient still with significant erythema. Slowly improving. However, patient's swelling is more prominent. Her pannus does look like it is heavier. Continue with antibiotics and may gently diurese. Review of Systems 10-point ROS is otherwise unremarkable Physical Examination - Vital Signs Reviewed - Physical Exam General: Alert, In no apparent distress, Oriented x3, Obese Respiratory: Clear to auscultation bilaterally, Normal air movement Cardiovascular: Regular rate/rhythm, Normal S1 S2 Gastrointestinal: Normal bowel sounds, Soft and benign, Non-distended, Other (Patient with large pannus which extends all the way down to the in the-weighs about 70-80 lb); patient with erythema and some tenderness - Studies Medications List Reviewed: Yes Assessment & Plan - Problems (Diagnosis) (1) Panniculitis Current Visit: Yes Status: Acute (2) Cellulitis, abdominal wall Current Visit: Yes Status: Acute (3) History of DVT (deep vein thrombosis) Current Visit: Yes Status: Acute (4) COPD (chronic obstructive pulmonary disease) Current Visit: No Status: Acute (5) Morbid obesity with BMI of 70 and over, adult Current Visit: No Status: Acute (6) Stage III pressure ulcer Current Visit: No Status: Acute (7) Type II diabetes mellitus Current Visit: No Status: Acute (8) Hyperlipidemia Current Visit: No Status: Chronic (9) Hypertension Onset Date: 09/24/17 Current Visit: No Status: Chronic Hypertension type: essential hypertension (10) Hypothyroidism Onset Date: 09/24/17 Current Visit: No Status: Chronic (11) Type 2 diabetes mellitus Current Visit: No Status: Chronic Qualifiers: Diabetes mellitus nursing home insulin use: without nursing home use Diabetes mellitus complication status: with kidney complications Diabetes mellitus complication detail: with chronic kidney disease Chronic kidney disease stage: stage 3 (moderate) Chronic kidney disease stage 3 subtype: stage 3a (GFR 45-59) Qualified Code(s): E11.22 - Type 2 diabetes mellitus with diabetic chronic kidney disease; N18.31 - Chronic kidney disease, stage 3a (12) Vitiligo Current Visit: No Status: Chronic - Plan Continue with plan of care as mentioned below: 1. Continue with IV antibiotic 2. Continue with local wound care 3. Wound care consultation/surgical consultation appreciated; transfer to tertiary care facility; hopefully patient will have to have some kind a intervention as soon as possible as her quality of life has been dramatically affected. She is not able to really get out of bed even with the pannus being so large. I believe she needs definitive treatment at this time. 4. Hep-Lock IV 5. Monitor CBC 6. Strict blood sugar monitoring 7. Pain control 8. GI and DVT prophylaxis
[2020-07-15] MEDS: ACETAMINOPHEN 500 MG TAB PO PRN (15:14)
[2020-07-15] MEDS: HYDROCODONE/APAP 10/325 TAB PO PRN (20:59)
[2020-07-15] MEDS: DOXAZOSIN 2 MG TAB PO SCH (21:00)
[2020-07-15] MEDS: ROPINIROLE HCL 0.25 MG TAB PO SCH (21:00)
--- NOTE | 2020-07-16 00:24 | P.PN ---
Subjective Date of Service: 07/16/20 Primary Care Provider: Dr. Mireles Chief Complaint: Abdominal wall cellulitis Pt doing well. Now complaining of panus pain. Review of Systems 10-point ROS is otherwise unremarkable Physical Examination - Vital Signs Temperature: 97.3 F Blood Pressure: 104/50 Pulse: 86 Respirations: 18 Pulse Ox (%): 98 - Physical Exam General: Alert, In no apparent distress, Oriented x3, Obese HEENT: Atraumatic, PERRLA, EOMI Neck: Supple, JVD not distended Respiratory: Diminished Cardiovascular: Edema Capillary refill: <2 Seconds Gastrointestinal: Normal bowel sounds Integumentary: No rashes - Studies Medications List Reviewed: Yes Assessment & Plan Physician Review Additional Text: Problems Aura secondary to prerenal etiology Obesity Hypertension Hypothyrodisim Plan Kidney function continues to improve Avoid nephrotoxins; Continue to hold losartan. May resume once creatinine is <1. Monitor blood pressure if needs to add another blood pressure medication. consider optimizing beta isaac or adding hydrazine 50mg po tid. All electrolytes wnl. Strict i/o Blood pressure controlled, Will continue to follow.
[2020-07-16] MEDS: CLINDAMYCIN INJ 600 MG in NA CHLORIDE 0.9% 50 ML IV SCH ×3 (00:48→18:20)
[2020-07-16] MEDS: ACETAMINOPHEN 500 MG TAB PO PRN (00:56)
[2020-07-16] MEDS: HYDROCODONE/APAP 10/325 TAB PO PRN ×2 (04:40→15:36)
[2020-07-16 05:07] VITALS: BMI 84.1
[2020-07-16] MEDS: LEVOTHYROXINE SOD 0.1 MG TAB PO SCH (06:02)
[2020-07-16] MEDS: INSULIN -REGULAR HUMAN 50 UNIT/0.5 ML ML SQ SCH ×4 (07:30→21:59)
[2020-07-16] MEDS: POTASSIUM CHLORIDE 20 MEQ PO SCH (09:00)
[2020-07-16] MEDS: HOME MED 1 EA UNK (Vit D3/Vit K2/Calc Frutoborate [Move Free Ultra-Borate-K2-D3] Tablet) PO SCH (09:00)
[2020-07-16] MEDS: HOME MED 1 EA UNK (Fluticasone/Vilanterol [Breo Ellipta 200-25 Mcg Inh] Blst.W.Dev) IH SCH (09:00)
--- NOTE | 2020-07-16 09:24 | P.PN ---
Subjective Date of Service: 07/16/20 Primary Care Provider: Dr. Mireles Chief Complaint: Abdominal wall cellulitis Patient seen examined at bedside. Awaiting bed at [facility] for transfer to undergo surgery to remove pannus. Review of Systems 10-point ROS is otherwise unremarkable Physical Examination - Vital Signs Temperature: 97.8 F Blood Pressure: 129/60 Pulse: 78 Respirations: 18 Pulse Ox (%): 95 - Studies Temp Pulse Resp BP Pulse Ox 97.8 F 78 18 129/60 95 07/16/20 08:00 07/16/20 08:00 07/16/20 08:00 07/16/20 08:00 07/16/20 08:00 Laboratory Last Values WBC 19.30 K/uL (4.3-10.9) H 07/11/20 19:26 RBC 3.29 M/uL (3.86-4.86) L 07/11/20 19:26 Hgb 9.2 g/dL (12.0-15.0) L 07/11/20 19:26 Hct 29.7 % (36.0-45.0) L 07/11/20 19:26 MCV 90.1 fL (80-100) D 07/11/20 19:26 MCH 28.1 pg (27.0-35.0) 07/11/20 19:26 MCHC 31.2 g/dL (32.0-36.0) L 07/11/20 19:26 RDW 15.9 % (12.1-15.2) H 07/11/20 19:26 Plt Count 206 K/uL (152-406) 07/11/20 19:26 MPV 8.8 fL (7.6-11.3) 07/11/20 19:26 Neutrophils % 96.5 % (41.7-73.7) H 07/11/20 19:26 Lymphocytes % 1.1 % (15.3-44.8) L 07/11/20 19:26 Monocytes % 1.8 % (3.3-12.3) L 07/11/20 19:26 Eosinophils % 0.2 % (0-4.4) 07/11/20 19:26 Basophils % 0.4 % (0-1.3) 07/11/20 19:26 Absolute Neutrophils 18.6 K/uL (1.8-8.0) H 07/11/20 19:26 Segmented Neutrophils 84 % (40-80) H 07/11/20 19:26 Band Neutrophils 13 % (0-1) H* 07/11/20 19:26 Absolute Lymphocytes 0.2 K/uL (0.7-4.9) L 07/11/20 19:26 Lymphocytes 1 % (15-42) L 07/11/20 19:26 Monocytes 2 % (0-10) 07/11/20 19:26 Absolute Monocytes 0.3 K/uL (0.1-1.3) 07/11/20 19:26 Absolute Eosinophils 0.0 K/uL (0-0.5) 07/11/20 19:26 Absolute Basophils 0.1 K/uL (0-0.5) 07/11/20 19:26 Platelet Estimate Adeq 07/11/20 19:26 Morphology Comment Not seen (NOT SEEN) 07/11/20 19:26 PT 24.1 SECONDS (9.5-12.5) H 07/11/20 19:26 INR 2.08 07/11/20 19:26 Sodium 139 mmol/L (136-145) 07/11/20 19:26 Potassium 4.9 mmol/L (3.5-5.1) 07/11/20 19:26 Chloride 108 mmol/L (98-107) H 07/11/20 19:26 Carbon Dioxide 24 mmol/L (21-32) 07/11/20 19:26 BUN 35 mg/dL (7-18) H 07/11/20 19:26 Creatinine 1.68 mg/dL (0.55-1.3) H 07/11/20 19:26 Estimated GFR 31 mL/min (=/>90) L 07/11/20 19:26 Glucose 363 mg/dL (74-106) H 07/11/20 19:26 Lactic Acid 2.2 mmol/L (0.4-2.0) H 07/11/20 19:26 Calcium 8.0 mg/dL (8.5-10.1) L 07/11/20 19:26 Magnesium 2.1 mg/dL (1.8-2.4) 07/11/20 19:26 Total Bilirubin 0.5 mg/dL (0.2-1.0) 07/11/20 19:26 Direct Bilirubin 0.1 mg/dL (0-0.2) 07/11/20 19:26 AST 9 U/L (15-37) L 07/11/20 19:26 ALT 27 U/L (12-78) 07/11/20 19:26 Alkaline Phosphatase 82 U/L (45-117) 07/11/20 19:26 Rapid Troponin I < 0.02 ng/mL (0.0-0.045) 07/11/20 19:26 NT-Pro-B Natriuret Pep 125 pg/mL (<125) 07/11/20 19:26 Serum Total Protein 6.3 g/dL (6.4-8.2) L 07/11/20 19:26 Albumin 2.6 g/dL (3.4-5.0) L 07/11/20 19:26 Globulin 3.7 g/dL (2.3-3.5) H 07/11/20 19:26 Albumin/Globulin Ratio 0.7 (1.1-1.8) L 07/11/20 19:26 Urine Color Cancelled 07/11/20 21:46 Urine Appearance Cancelled 07/11/20 21:46 Urine pH Cancelled 07/11/20 21:46 Ur Specific [place] Cancelled 07/11/20 21:46 Glucose (UA)(Auto) Cancelled 07/11/20 21:46 Urine Ketones Cancelled 07/11/20 21:46 Urine Blood Cancelled 07/11/20 21:46 Urine Nitrite Cancelled 07/11/20 21:46 Urine Bilirubin Cancelled 07/11/20 21:46 Urine Urobilinogen Cancelled 07/11/20 21:46 Ur Leukocyte Esterase Cancelled 07/11/20 21:46 Ur Microscopic Review Cancelled 07/11/20 21:46 Urine Total Protein Cancelled 07/11/20 21:46 SARS-CoV-2 RNA (RT-PCR) Negative (NEGATIVE) 07/11/20 22:10 Medications List Reviewed: Yes Assessment And Plan - Plan Physical Exam: General: Moderate distress, Obese HEENT: Atraumatic, Normocephalic Neck: Supple, 2+ carotid pulse no bruit Respiratory: Other (Decreased breath sounds/difficulty auscultating due to body habitus) Cardiovascular: Regular rate/rhythm Gastrointestinal: Distended, Tenderness, Masses (Abdominal wall inflammation with multiple wounds. Wounds draining serous fluid.) Antibiotics clindamycin start: 07/12 stop: 07/25 Cefepime start: 07/12 stop: 07/25 Assessment: -Panniculitis with morbid obesity -diabetes mellitus type 2 -protein caloric malnutrition -anemia -hypothyroidism Plan: -continue on clindamycin and cefepime for total antibiotic duration of 2 weeks. wound cultures taken on 07/12 grew: Enterococus faecalis and Enterobacter cloacea. Urine culture grew: Pantoea agglomerans. Both wound cultures show sensitivity to cefepime. Continue dual antibiotic therapy at this time. -to open wounds on panus : Apply Silvadene and covered with ABD pads and foam. -strict glucose monitoring for proper wound healing. Patient's most recent hemoglobin A1c was 8.5. -patient has low albumin at 2.3. Recommend supplemental Ensure protein drinks with meals. -medical management per primary team continue monitor CBC and BMP -continue monitor for signs infection Plan of care discussed with Dr. wtaers Thank you for consultation.
[2020-07-16] MEDS: PENTOXIFYLLINE ER 400 MG TAB PO SCH (10:35)
[2020-07-16] MEDS: AMLODIPINE 10 MG TAB PO SCH (10:35)
[2020-07-16] MEDS: RIVAROXABAN 20 MG TABLET PO SCH (10:36)
[2020-07-16] MEDS: METOPROLOL XL 50 MG TAB PO SCH (10:36)
[2020-07-16] MEDS: PREGABALIN 150 MG CAP PO SCH ×3 (10:37→18:19)
[2020-07-16] MEDS: MILNACIPRAN HCL 100 MG PO SCH ×2 (10:40→20:42)
[2020-07-16] MEDS: SPIRONOLACTONE 25 MG PO SCH (10:40)
[2020-07-16] MEDS: TOPIRAMATE PO SCH ×2 (10:41→20:42)
[2020-07-16] MEDS: CEFEPIME/SWI 1gm 10 ML IVP SCH ×2 (11:33→22:00)
[2020-07-16] MEDS: SILVER SULFADIAZINE 1% 50 GM TOP SCH ×2 (18:19→20:44)
[2020-07-16] MEDS ORDERED: NYSTATIN PWDR 100000 UNIT/GM TOP PRN (19:53)
[2020-07-16] MEDS: DIPHENHYDRAMINE 12.5MG/5ML LIQ PO PRN (20:37)
[2020-07-16] MEDS: DOXAZOSIN 2 MG TAB PO SCH (20:37)
[2020-07-16] MEDS: ROPINIROLE HCL 0.25 MG TAB PO SCH (21:00)
[2020-07-17] MEDS: CLINDAMYCIN INJ 600 MG in NA CHLORIDE 0.9% 50 ML IV SCH ×2 (00:56→11:30)
[2020-07-17] MEDS: DIPHENHYDRAMINE 12.5MG/5ML LIQ PO PRN ×2 (02:03→11:31)
[2020-07-17] MEDS: HYDROCODONE/APAP 10/325 TAB PO PRN ×2 (02:09→09:35)
[2020-07-17] MEDS: LEVOTHYROXINE SOD 0.1 MG TAB PO SCH (06:07)
[2020-07-17 06:30] LABS: Absolute Lymphocytes (CBC) 0.8 K/uL (0.7-4.9); Basophils % 0.7 % (0-1.3); Hematocrit 28.8 % (36.0-45.0); Lymphocytes % 8.9 % (15.3-44.8); MPV 8.2 fL (7.6-11.3); RBC Red Blood Cell Count 3.17 M/uL (3.86-4.86)
[2020-07-17 06:34] LABS: Magnesium 2.3 mg/dL (1.8-2.4); Potassium 4.8 mmol/L (3.5-5.1)
[2020-07-17] MEDS: INSULIN -REGULAR HUMAN 50 UNIT/0.5 ML ML SQ SCH ×2 (07:30→11:30)
[2020-07-17] MEDS: LOSARTAN POTASSIUM 50 MG TABLET PO SCH (08:36)
[2020-07-17 08:37] LABS: Blood Morphology Comment NOT SEEN (NOT SEEN); Platelet Estimate ADEQ
[2020-07-17] MEDS: METOPROLOL XL 50 MG TAB PO SCH (08:37)
[2020-07-17] MEDS: AMLODIPINE 10 MG TAB PO SCH (08:37)
[2020-07-17] MEDS: PREGABALIN 150 MG CAP PO SCH ×2 (08:37→14:26)
[2020-07-17] MEDS: PENTOXIFYLLINE ER 400 MG TAB PO SCH (08:37)
[2020-07-17] MEDS: SPIRONOLACTONE 25 MG PO SCH (08:39)
[2020-07-17] MEDS: RIVAROXABAN 20 MG TABLET PO SCH (08:39)
[2020-07-17] MEDS: TOPIRAMATE PO SCH (08:39)
[2020-07-17] MEDS: MILNACIPRAN HCL 100 MG PO SCH (08:40)
[2020-07-17] MEDS: POTASSIUM CHLORIDE 20 MEQ PO SCH (08:40)
[2020-07-17] MEDS: HOME MED 1 EA UNK (Fluticasone/Vilanterol [Breo Ellipta 200-25 Mcg Inh] Blst.W.Dev) IH SCH (08:40)
[2020-07-17] MEDS: HOME MED 1 EA UNK (Vit D3/Vit K2/Calc Frutoborate [Move Free Ultra-Borate-K2-D3] Tablet) PO SCH (08:41)
[2020-07-17] MEDS: CEFEPIME/SWI 1gm 10 ML IVP SCH (11:31)
--- NOTE | 2020-07-17 12:14 | P.PN ---
Date of Service: 07/17/20 Subjective Please see discharge summary Review of Systems 10-point ROS is otherwise unremarkable Physical Examination - Vital Signs Reviewed - Physical Exam General: Alert, In no apparent distress, Oriented x3, Obese Respiratory: Clear to auscultation bilaterally, Normal air movement Cardiovascular: Regular rate/rhythm, Normal S1 S2 Gastrointestinal: Normal bowel sounds, Soft and benign, Non-distended, Other (Patient with large pannus which extends all the way down to the in the-weighs about 70-80 lb); patient with erythema and some tenderness - Studies Medications List Reviewed: Yes Assessment & Plan - Problems (Diagnosis) (1) Panniculitis Current Visit: Yes Status: Acute (2) Cellulitis, abdominal wall Current Visit: Yes Status: Acute (3) History of DVT (deep vein thrombosis) Current Visit: Yes Status: Acute (4) COPD (chronic obstructive pulmonary disease) Current Visit: No Status: Acute (5) Morbid obesity with BMI of 70 and over, adult Current Visit: No Status: Acute (6) Stage III pressure ulcer Current Visit: No Status: Acute (7) Type II diabetes mellitus Current Visit: No Status: Acute (8) Hyperlipidemia Current Visit: No Status: Chronic (9) Hypertension Onset Date: 09/24/17 Current Visit: No Status: Chronic Hypertension type: essential hypertension (10) Hypothyroidism Onset Date: 09/24/17 Current Visit: No Status: Chronic (11) Type 2 diabetes mellitus Current Visit: No Status: Chronic Qualifiers: Diabetes mellitus detention insulin use: without termite control service representative use Diabetes mellitus complication status: with kidney complications Diabetes mellitus complication detail: with chronic kidney disease Chronic kidney disease stage: stage 3 (moderate) Chronic kidney disease stage 3 subtype: stage 3a (GFR 45-59) Qualified Code(s): E11.22 - Type 2 diabetes mellitus with diabetic chronic kidney disease; N18.31 - Chronic kidney disease, stage 3a (12) Vitiligo Current Visit: No Status: Chronic - Plan Continue with plan of care as mentioned below: 1. Continue with IV antibiotic in awaiting transfer to tertiary care facility 2. Continue with local wound care 3. Wound care consultation/surgical consultation appreciated; transfer to tertiary care facility; hopefully patient will have to have some kind a intervention as soon as possible as her quality of life has been dramatically affected. She is not able to really get out of bed even with the pannus being so large. I believe she needs definitive treatment at this time. 4. Hep-Lock IV 5. Monitor CBC 6. Strict blood sugar monitoring 7. Pain control; gently diurese 8. GI and DVT prophylaxis
--- NOTE | 2020-07-17 12:14 | P.PN ---
Date of Service: 07/16/20 Subjective Patient remains in good spirits. Erythema is somewhat better. Patient's sad because she had to celebrate her birthday in the hospital. However, patient's swelling is still pretty prominent. Her pannus looks to have become a little more edematous during her hospitalization. Continue with antibiotics and may gently diurese. Review of Systems 10-point ROS is otherwise unremarkable Physical Examination - Vital Signs Reviewed - Physical Exam General: Alert, In no apparent distress, Oriented x3, Obese Respiratory: Clear to auscultation bilaterally, Normal air movement Cardiovascular: Regular rate/rhythm, Normal S1 S2 Gastrointestinal: Normal bowel sounds, Soft and benign, Non-distended, Other (Pa tient with large pannus which extends all the way down to the in the-weighs about 70-80 lb); patient with erythema and some tenderness - Studies Medications List Reviewed: Yes Assessment & Plan - Problems (Diagnosis) (1) Panniculitis Current Visit: Yes Status: Acute (2) Cellulitis, abdominal wall Current Visit: Yes Status: Acute (3) History of DVT (deep vein thrombosis) Current Visit: Yes Status: Acute (4) COPD (chronic obstructive pulmonary disease) Current Visit: No Status: Acute (5) Morbid obesity with BMI of 70 and over, adult Current Visit: No Status: Acute (6) Stage III pressure ulcer Current Visit: No Status: Acute (7) Type II diabetes mellitus Current Visit: No Status: Acute (8) Hyperlipidemia Current Visit: No Status: Chronic (9) Hypertension Onset Date: 09/24/17 Current Visit: No Status: Chronic Hypertension type: essential hypertension (10) Hypothyroidism Onset Date: 09/24/17 Current Visit: No Status: Chronic (11) Type 2 diabetes mellitus Current Visit: No Status: Chronic Qualifiers: Diabetes mellitus intermediate frame tender insulin use: without fci use Diabetes mellitus complication status: with kidney complications Diabetes mellitus complication detail: with chronic kidney disease Chronic kidney disease stage: stage 3 (moderate) Chronic kidney disease stage 3 subtype: stage 3a (GFR 45-59) Qualified Code(s): E11.22 - Type 2 diabetes mellitus with diabetic chronic kidney disease; N18.31 - Chronic kidney disease, stage 3a (12) Vitiligo Current Visit: No Status: Chronic - Plan Continue with plan of care as mentioned below: 1. Continue with IV antibiotic in awaiting transfer to tertiary care facility 2. Continue with local wound care 3. Wound care consultation/surgical consultation appreciated; transfer to tertiary care facility; hopefully patient will have to have some kind a in tervention as soon as possible as her quality of life has been dramatically affected. She is not able to really get out of bed even with the pannus being so large. I believe she needs definitive treatment at this time. 4. Hep-Lock IV 5. Monitor CBC 6. Strict blood sugar monitoring 7. Pain control; gently diurese 8. GI and DVT prophylaxis
[2020-07-17 12:58] VITALS: O2SAT 99
[2020-07-17] MEDS: SILVER SULFADIAZINE 1% 50 GM TOP SCH (14:27)
[2020-07-17 16:22] VITALS: BP 106/54; TEMP 97
--- NOTE | 2020-07-26 17:45 | P.DS ---
Discharge Date: 07/17/20 Primary Care Provider: Dr. Mireles Disposition: TRANSFER TO [facility] Discharge Condition: GOOD Reason for Admission: Abdominal wall cellulitis - Problems (1) Panniculitis Status: Acute (2) Cellulitis, abdominal wall Status: Acute (3) History of DVT (deep vein thrombosis) Status: Acute (4) COPD (chronic obstructive pulmonary disease) Status: Acute (5) Morbid obesity with BMI of 70 and over, adult Status: Acute (6) Stage III pressure ulcer Status: Acute (7) Type II diabetes mellitus Status: Acute (8) Hyperlipidemia Status: Chronic Qualifiers: (9) Hypertension Onset Date: 09/24/17 Status: Chronic Qualifiers: Hypertension type: essential hypertension (10) Hypothyroidism Onset Date: 09/24/17 Status: Chronic Qualifiers: (11) Type 2 diabetes mellitus Status: Chronic Qualifiers: Diabetes mellitus buttermaker helper insulin use: without detention use Diabetes mellitus complication status: with kidney complications Diabetes mellitus complication detail: with chronic kidney disease Chronic kidney disease stage: stage 3 (moderate) Chronic kidney disease stage 3 subtype: stage 3a (GFR 45- 59) Qualified Code(s): E11.22 - Type 2 diabetes mellitus with diabetic chronic kidney disease; N18.31 - Chronic kidney disease, stage 3a (12) Vitiligo Status: Chronic Brief History of Present Illness: Patient is a 64-year-old female with history of morbid obesity with multiple ulcerations to the pannus, diabetes mellitus type 2, hypertension, hyperlipidemia, hypothyroidism presents emergency department for malaise, fatigue, low blood pressure. Patient reports over the course of the last 1-2 weeks she has noticed more ulcerations to her pannus. On exam patient is pannus is quite large, edematous, erythematous, multiple ulcerations leaking serosanguineous fluid. Labs in the emergency department significant for white blood cell count 19.3 hemoglobin 9.2 hematocrit 29.7 13% bands creatinine 1.68 GFR 31, glucose [address] abdomen pelvis pending, chest x-ray unremarkable. ED provider wishes to admit for sepsis, abdominal wall cellulitis. When I saw the patient in the ER she is awake, alert, oriented x3. Patient is with blood pressure around 100 systolic at this time, not tachycardic or fe brile, appears to be sepsis without severe sepsis or septic shock at this time. Patient with multiple drug allergies to antibiotics, patient reports she has recently tolerated Rocephin and does not recall an allergy to vancomycin. Will continue with vancomycin/cefepime at this time. Hospital Course: Patient had prolonged hospital stay. Patient was given antibiotic therapy. However, patient had a large pannus that was not healing for many months. Spoke to Plastic surgery and they excepted to a tertiary care facility. Patient was hoping to get opinion like to me. Patient will hopefully be able to get emergent bariatric intervention. Will go ahead and transfer to a tertiary care facility at this time. Vital Signs/Physical Exam: Temp Pulse Resp BP Pulse Ox 97 F 79 16 106/54 L 100 07/17/20 16:00 07/17/20 16:00 07/17/20 16:00 07/17/20 16:00 07/17/20 16:00 General: Alert, In no apparent distress, Oriented x3 Laboratory Data at Discharge: WBC 8.80 K/uL (4.3-10.9) D 07/17/20 06:09 Hgb 9.0 g/dL (12.0-15.0) L 07/17/20 06:09 Hct 28.8 % (36.0-45.0) L 07/17/20 06:09 Plt Count 262 K/uL (152-406) 07/17/20 06:09 PT 24.1 SECONDS (9.5-12.5) H 07/11/20 19:26 INR 2.08 07/11/20 19:26 Sodium 142 mmol/L (136-145) 07/17/20 06:09 Potassium 4.8 mmol/L (3.5-5.1) 07/17/20 06:09 BUN 22 mg/dL (7-18) H 07/17/20 06:09 Creatinine 1.03 mg/dL (0.55-1.3) 07/17/20 06:09 Glucose 251 mg/dL (74-106) H 07/17/20 06:09 Magnesium 2.3 mg/dL (1.8-2.4) 07/17/20 06:09 Total Bilirubin 0.2 mg/dL (0.2-1.0) 07/15/20 03:52 AST 9 U/L (15-37) L 07/15/20 03:52 ALT 27 U/L (12-78) 07/15/20 03:52 Alkaline Phosphatase 62 U/L (45-117) 07/15/20 03:52 Home Medications: Amlodipine Besylate 10 mg PO DAILY 05/18/20 Doxazosin [Cardura*] 1 mg PO BEDTIME 05/18/20 Furosemide [Lasix*] 20 mg PO DAILYPRN PRN 05/18/20 Insulin Aspart [Novolog Flexpen] 15 units SQ TID 05/18/20 Insulin Degludec [Tresiba Flextouch U-100] 60 units SQ BID 05/18/20 Levothyroxine Sodium [Synthroid] 200 mcg PO DAILY 05/18/20 Losartan Potassium [Cozaar] 100 mg PO DAILY 05/18/20 Metoprolol Succinate [Toprol Xl*] 50 mg PO DAILY 05/18/20 Milnacipran HCl [Savella] 100 mg PO BID 05/18/20 Pentoxifylline 400 mg PO DAILY 05/18/20 Potassium Oral Tab [Klor-Con 10 mEq Tab*] 20 meq PO DAILY 05/18/20 Pregabalin [Lyrica] 150 mg PO TID* 05/18/20 Ropinirole HCl [Requip*] 0.25 mg PO BEDTIME 05/18/20 Spironolactone [Aldactone*] 25 mg PO DAILY 05/18/20 Topiramate [Topiramate ER] 1 tab PO BID 05/18/20 Vit D3/Vit K2/Calc Frutoborate [Move Free Fjugw-Swmirx-[id number]] 4,000 iu PO DAILY 05/18/20 Rivaroxaban [Xarelto] 20 mg PO DAILY #30 tab 05/20/20 Fluticasone/Vilanterol [Breo Ellipta 200-25 Mcg INH] 1 puff IH DAILY 07/12/20 Phentermine HCl 1 tab PO DAILY 07/12/20 Apixaban [Eliquis] 5 mg PO BID #60 tablet 07/22/20 New Medications: Apixaban [Eliquis] 5 mg PO BID #60 tablet Physician Discharge Instructions: PROBLEM: Abdominal Wall Cellulitis GOAL: Clear understanding of disease process INSTRUCTIONS: Diet: heart healthy Activity: Fall precautions If you have have any questions regarding your stay call [phone] If your symptoms worsen call 911 or go to the Ed. Patient to be transferred to [facility] report to [phone] Diet: AHA Activity: Fall precautions Followup: Unknown,U [Primary Care Provider] - Time spent managing pt's care (in minutes): 35
== END 2020-07-17 16:31 | disposition short-term general hospital (02) | DRG 871 ==
LOC: ER 18:15 → ERHOLD 22:41 → 2ND 07-12
PROVIDERS: ADMIT Hospitalist; ATTEND Hospitalist
DX: A40.1 Sepsis due to streptococcus, group B (principal); L89.893 Pressure ulcer of other site, stage 3; L03.311 Cellulitis of abdominal wall; Z68.45 Body mass index [BMI] 70 or greater, adult; N17.9 Acute kidney failure, unspecified; E46 Unspecified protein-calorie malnutrition; N30.90 Cystitis, unspecified without hematuria; E78.5 Hyperlipidemia, unspecified; I12.9 Hypertensive chronic kidney disease with stage 1 through stage 4 chronic kidney disease, or unspecified chronic kidney disease; N18.31 Chronic kidney disease, stage 3a; E11.22 Type 2 diabetes mellitus with diabetic chronic kidney disease; E03.9 Hypothyroidism, unspecified; J44.9 Chronic obstructive pulmonary disease, unspecified; E66.01 Morbid (severe) obesity due to excess calories; L80 Vitiligo; D64.9 Anemia, unspecified; M79.3 Panniculitis, unspecified; K21.9 Gastro-esophageal reflux disease without esophagitis; Z88.1 Allergy status to other antibiotic agents; Z88.0 Allergy status to penicillin; Z88.5 Allergy status to narcotic agent; Z98.51 Tubal ligation status; Z88.8 Allergy status to other drugs, medicaments and biological substances; Z91.040 Latex allergy status; Z79.4 Long term (current) use of insulin; Z79.890 Hormone replacement therapy; Z79.01 Long term (current) use of anticoagulants; Z79.899 Other long term (current) drug therapy; Z86.711 Personal history of pulmonary embolism; Z86.718 Personal history of other venous thrombosis and embolism; Z20.822 Contact with and (suspected) exposure to COVID-19
CPT/HCPCS: 36415; 70450; 71045; 71250; 74176; 80048; 80053; 80076; 81003; 81015; 82728; 82947; 83036; 83540; 83605; 83735; 83880; 84145; 84439; 84443; 84466; 84484; 85025; 85610; 87040; 87070; 87077; 87086; 87088; 87186; 87205; 93005; 96361; 96365; 96375; 99285; J0692; J1200; J2405; J3010; J3370; J7030; J7050; Q0163; U0003

== ENCOUNTER 2020-08-21 23:46 | Inpatient (IN) | payer OTHER ==
--- OUTSIDE RECORDS SUMMARY | 2020-08-21 23:51 | XMS REPORT | Continuity of Care Document ---
:1955 Author Organization [facility] t Address [address] [place] [address] Care Team Providers Name Role Phone Pcp Primary Care Physician Unavailable Pramod ROSALES Attending Clinician CLAUDIA Attending Clinician Unavailable Willian BROWN PKimi Attending Clinician Krystal Melendez MD Attending Clinician Matty Ambrocio MD Attending Clinician Dmitriy DORSEY Attending Clinician Unavailable Doctor Unassigned, Name Attending Clinician Unavailable Carlin BROWN Attending Clinician Adolfo Echevarria MD Attending Clinician Angela Singh MD Attending Clinician ADOLFO ECHEVARRIA Attending Clinician Unavailable Looc Nelson DO Attending Clinician MATTY AMBROCIO Admitting Clinician Unavailable ANGELA SINGH Admitting Clinician Unavailable Payers Payer Name Policy Type Policy Number Effective Date Expiration Date [facility] [place] [id number] 2020 00:00:00 [facility] [id number] [facility] [facility] 00:[facility]:00 [facility] - CHOICE Medical [id number] [facility] er [id number]- [id number]/POS Problems Condition Condition Condition Status Onset Resolution Last Treating Co mments Source Name Details Category Date Date Treatment Clinician Date Panniculit Panniculit Disease Active [facility] is is 3-15 [facility] - 00:00: Medical 00 Center Allergies, Adverse Reactions, Alerts Allergy Allergy Status Severity Reaction(s) Onset Inactive Treating Comm ents Source Name Type Date Date Clinician Vancomyc Drug Active Nausea And [facility] in Allergy Vomiting 6-05 [facility] - Analogue 00:00: Medical s 00 Center Latex Propensi Active [facility] ty to 3-15 [facility] - adverse 00:00: Medical reaction 00 Center s Levoflox Propensi Active [facility] acin ty to 3-15 [facility] - adverse 00:00: Medical reaction 00 Center s Morphine Propensi Active [facility] ty to 3-15 [facility] - adverse 00:00: Medical reaction 00 Center s Penicill Propensi Active [facility] ins ty to 3-15 [facility] - adverse 00:00: Medical reaction 00 [place] Ciproflo Propensi Active [facility] xacin ty to 3-15 [facility] - adverse 00:00: Medical reaction 00 Center s Clarithr Propensi Active [facility] omycin ty to 3-15 [facility] - adverse 00:00: Medical reaction 00 [place] Dapaglif Propensi Active [facility] lozin ty to 3-15 [facility] - adverse 00:00: Medical reaction 00 [place] Social History Social Habit Start Date Stop Date Quantity Comments Source Sex Assigned At [facility] St kes - [facility] Medications Ordered Filled Start Stop Current Ordering Indication Dosage Frequency Signature Comments Components Source Medication Medication Date Date Medication? Clinician (SIG) Name Name doxycycline 2020- Yes 100mg Q.5D Take [address] (MONODOX) 08-03 09-20 capsule [facility] - 100 MG 00:00: 23:59 (100 mg Medical capsule 00 :00 total) by Center mouth 2 (two) times daily for 90 days Start this medication once you have completed the linezolid course. doxazosin 2020-0 Yes 1mg QD Take [address] (CARDURA) 1 6-08 by mouth Luke s - MG tablet 15:15: nightly. Medi [place] 56 Center metoprolol 2020-0 Yes 50mg QD Take [address] succinate 6-08 by mouth [facility] - (TOPROL-XL) 15:15: daily. Medi [place] 50 MG 24 hr 56 Center tablet milnacipran 2020-0 Yes 100mg Q.5D Take [address] 100 mg Tab 6-08 mg by [facility] - 15:15: mouth 2 Medical 56 (two) Center times daily. pregabalin 2020-0 Yes 150mg Q.[id number] Take [address] (LYRICA) 6-08 [id number] mg by Luke s - 150 MG 15:15: 3D mouth 3 Medical capsule 56 (three) Center times daily. pantoprazol Yes 40mg QD Take [address] [facility] e 6-08 by mouth [facility] - (PROTONIX) 15:15: daily. Medic al 40 MG 56 Center tablet ondansetron 0 Yes 4mg Take [address] (ZOFRAN) 4 6-08 by mouth [facility] - MG tablet 15:15: every 6 Medic al 56 (six) Center hours as needed. amLODIPine 0 Yes 10mg QD Take [address] (NORVASC) 6-08 by mouth [facility] - 10 MG 15:15: daily. Medical tablet 56 Center pravastatin 0 Yes 20mg QD Take [address] (PRAVACHOL) 6-08 by mouth Luke s - 20 MG 15:15: daily. Medical tablet 56 Center linezolid 2020-0 2021- No 600mg Q.5D Take [address] (ZYVOX) 600 6-08 06-18 tablet [facility] - mg tablet 00:00: 23:59 (600 mg Medi [place] 00 :00 total) by Center mouth 2 (two) times daily for 10 days. spironolact 2020-0 Yes 25mg QD Take [address] one 2-24 by mouth [facility] - (ALDACTONE) 00:00: daily. Medi [place] 25 MG 00 Center tablet losartan 2020-0 Yes 100mg QD Take [address] (COZAAR) 2-19 mg by [facility]ukes - 100 MG 00:00: mouth Medical tablet 00 daily. [place] furosemide Yes 20mg QD Take [address] (LASIX) 20 2-04 by mouth [facility] - MG tablet 00:00: daily. Medica l 00 [place] potassium Yes 20meq QD Take [address] chloride 20 2-04 mEq by [facility] - mEq TbER 00:00: mouth Medical 00 daily. [place] rOPINIRole Yes .25mg QD Take 0.[address] (REQUIP) 2-04 mg by [facility] - 0.25 MG 00:00: mouth Medical tablet 00 nightly. [place] Jardiance Yes 25mg QD Take [address] 25 mg 2-04 by mouth [facility] - tablet 00:00: every Medical 00 morning. [place] levothyroxi Yes 200ug QD Take [address] ne 2-03 mcg by [facility] - (Synthroid) 00:00: mouth Medic al 200 MCG 00 daily. [place] tablet pentoxifyll 2019-02 Yes 400mg QD Take [address] ine 2-27 mg by [facility] - (TRENTAL) 00:00: mouth Medical 400 mg CR 00 daily. [place] tablet insulin 2019-02 Yes 10U Inject 10 [facility] aspart 2-08 Units [facility]ukes - U-100 00:00: subcutaneo Medica l (NovoLOG) 00 usly 3 Center 100 unit/mL (three) (3 mL) InPn times daily before meals. insulin 2019-02 Yes 60U Inject 60 [facility] degludec 2-08 Units [facility]ukes - (Tresiba 00:00: subcutaneo Med ical FlexTouch 00 usly 2 Center U-200) 200 (two) unit/mL (3 times mL) InPn daily with breakfast and dinner. phentermine Yes 37.5mg QD Take 37.[address] (ADIPEX-P) 8-05 mg by [facility]ukes - 37.5 mg 00:00: mouth Medical tablet 00 daily. [place] topiramate Yes 50mg Q.5D Take [address] (TOPAMAX) 8-05 by mouth 2 Luke s - 50 MG 00:00: (two) Medical tablet 00 times Center daily. fluticasone 2020-0 Yes 1{puff} QD Inhale 1 [facility] furoate-nayely 3-19 puff by [facility]ukes - anteroL 00:00: mouth via Medic al (Breo 00 inhaler Center Ellipta) daily. 200-25 mcg/dose DsDv Vital Signs Vital Name Observation Time Observation Value Comments Source Systolic blood 2020-07-20 11:42:00 131 mm[Hg] [facility] Diastolic blood 2020-07-20 11:42:00 60 mm[Hg] [facility] Heart rate 2020-07-20 11:42:00 88 /min [facility] Body temperature 2020-07-20 11:42:00 36.5 Renata [facility] Respiratory rate 2020-07-20 11:42:00 18 /min [facility] Oxygen saturation in 2020-07-20 11:42:00 99 /min [facility] Arterial blood by Medical Ce nter Pulse oximetry Body height 2020-07-17 18:00:00 157.5 cm [facility] Body weight 2020-07-17 18:00:00 216.366 kg [facility] BMI 2020-07-17 18:00:00 87.24 kg/m2 [facility] Procedures Procedure Date / Time Performed Performing Clinician Edgar cristine POCT-GLUCOSE METER 2020-07-20 11:46:00 Glenis Melendez [facility] APTT 2020-07-20 10:02:00 Zonia Ambrocio [facility] POCT-GLUCOSE METER 2020-07-20 07:41:00 Glenis Melendez [facility] APTT 2020-07-20 02:31:00 Zonia Ambrocio [facility] POCT-GLUCOSE METER 2020-07-19 21:43:00 Glenis Melendez [facility] APTT 2020-07-19 18:00:00 Zonia Ambrocio [facility] POCT-GLUCOSE METER 2020-07-19 16:53:00 Al Glenisdaja Rice [facility] APTT 2020-07-19 16:27:00 Zonia Ambrocio [facility] POCT-GLUCOSE METER 2020-07-19 12:41:00 Glenis Melendez [facility] POCT-GLUCOSE METER 2020-07-19 07:44:00 Al Glenisdaja Rice [facility] APTT 2020-07-19 05:36:00 Al Glenis [facility] BASIC METABOLIC PANEL 2020-07-18 21:37:00 Zonia Ambrocio [address] APTT 2020-07-18 21:37:00 Zonia Ambrocio [facility] POCT-GLUCOSE METER 2020-07-18 21:28:00 Al Glenisdaja Rice [facility] POCT-GLUCOSE METER 2020-07-18 16:55:00 Al Glenisdaja Rice [facility] APTT 2020-07-18 13:38:00 Zonia Ambrocio [facility] POCT-GLUCOSE METER 2020-07-18 11:35:00 Glenis Melendez [facility] POCT-GLUCOSE METER 2020-07-18 07:09:00 Maggie Dorsey [facility] TSH/FREE T4 IF INDICATED 2020-07-18 06:54:00 Zonia Ambrocio CH, I [facility] APTT 2020-07-18 06:54:00 Zonia Ambrocio [facility] HEMOGLOBIN A1C 2020-07-18 00:56:00 Zonia Ambrocio [facility] CBC (HEMOGRAM ONLY) 2020-07-18 00:56:00 Zonia Ambrocio [facility] APTT 2020-07-18 00:56:00 Zonia Ambrocio [facility] CBC W/PLT COUNT & AUTO 2020-07-18 00:56:00 Zonia Ambrocio [facility] DIFFERENTIAL [facility] (CELLAVISION MANUAL 2020-07-18 00:56:00 Cristóbal Zonia [facility] - DIFF) [facility] POCT-GLUCOSE METER 2020-07-17 21:16:00 Maggie Dorsey [facility] BLOOD CULTURE 2020-07-17 20:41:00 Zonia Ambrocio [facility] BLOOD CULTURE 2020-07-17 20:20:00 Cristóbal [facility] PROTHROMBIN TIME/INR 2020-07-17 20:19:00 Cristóbal [facility] MAGNESIUM 2020-07-17 20:19:00 [facility] CBC W/PLT COUNT & AUTO 2020-07-17 20:19:00 Zonia Ambrocio [facility] DIFFERENTIAL [facility] APTT 2020-07-17 20:19:00 [facility] (CELLAVISION MANUAL 2020-07-17 20:19:00 [facility] BASIC METABOLIC PANEL 2020-07-17 20:19:00 Zonia Ambrocio [facility] - (7) [facility] HEPATIC FUNCTION PANEL 2020-07-17 20:19:00 Zonia Ambrocio [facility] POCT-GLUCOSE METER 2020-07-17 18:06:00 Maggie Dorsey [facility] BLOOD CULTURE 2020-04-26 17:23:00 Richard Echevarria [facility] SARS-COV2/RT-PCR ([facility] & 2020-04-26 17:23:00 Richard Echevarria [facility] CBC W/PLT COUNT & AUTO 2020-04-26 17:17:00 Richard Echevarria [facility] BASIC METABOLIC PANEL 2020-04-26 17:17:00 Richard Echevarria [facility] (7) [facility] LACTIC ACID, VENOUS 2020-04-26 17:17:00 Richard Echevarria I [facility] C-REACTIVE PROTEIN 2020-04-26 17:17:00 Richard Echevarria [facility] BLOOD CULTURE 2020-04-26 17:08:00 Richard Echevarria [facility] Plan of Care Planned Activity Planned Date Details Comments Source Future Scheduled 2021-01-[address] Melissa kes - Test 00:00:00 measurement [facility] Center (procedure) [code = 88761743] Future Scheduled 2020-02-[address] [facility] - Test 00:00:00 (12+) [code = [facility] DEPRESSION SCREENING (12+)] Future Scheduled 2006 SHINGLES VACCINES ([address] [facility] - Test 00:00:00 of 2) [code = [facility] SHINGLES VACCINES (1 of 2)] Future Scheduled [address] [facility] - Test 00:00:00 (procedure) [code = [facility] Center 52987407] Future Scheduled [address] [facility] J[facility] es - Test 00:00:00 malignant neoplasm of Medica l Center cervix (procedure) [code = 353022613] Future Scheduled 1975-07-17 DTAP/TDAP/TD VACCINES [facility] - Test 00:00:00 (1 - Tdap) [code = Medical C enter DTAP/TDAP/TD VACCINES (1 - Tdap)] Future Scheduled 1974 HEPATITIS C SCRE[facility]ING [facility] - Test 00:00:00 [code = HEPATITIS C Medical Center SCREENING] Future Scheduled 1968 COVID-19 VACCINE (1) [facility] - Test 00:00:00 [code = COVID-[address] VACCINE (1)] Future Scheduled 1966 DIABETIC EYE EXAM [facility] - Test 00:00:00 [code = DIABETIC EYE Medical Center EXAM] Future Scheduled [address] [facility] - Test 00:00:00 examination Medical Center (regime/therapy) [code = 231571315] Future Scheduled 1966 Urine screening for [facility] - Test 00:00:00 protein (procedure) Medical Center [code = 586834519] Future Scheduled [address] [facility] - Test 00:00:00 malignant neoplasm of [facility] breast (procedure) [code = 463786174] Future Scheduled [address] [facility] - Test 00:00:00 malignant neoplasm of [facility] colon (procedure) [code = 068103886] Encounters Start End Encounter Admission Attending Care Care Encounter Source Date/Time Date/Time Type Type Clinicians Facility Department ID 2020-08-20 2020-08-20 Telemedici Pramod ORMYLES [id number] 09:25:34 09:55:34 [place] [id number] [place] [id number] Professio [phone] nal [address] [facility] 2020-08-12 2020-08-12 [facility] [id number] [facility] 2020-08-10 2020-08-10 Outpatient YOBANI TAYLOR [facility] [id number] [facility] 10:35:03 11:07:09 DANIEL Le Medicin e 2020-08-04 2020-08-04 Out[facility] [id number] [facility] 2020 2020 Orders Doctor KEMP [id number] 00:00:00 00:00:00 Only Unassigned, IVA [id number] [place] [facility] [id number] 2020-07-03 2020-07-03 Refill Carlin ORMYLES [id number] 00:00:00 00:00:00 Gregoria Ruiz [id number] [place] [id number] Professio [phone] [address] 2020-07-02 2020-07-02 Outpatient [facility] [id number] [facility] 2020-06-30 2020-06-30 Outpatient [facility] [id number] [facility] 2020-06-28 2020-06-28 Outpatient [facility] [id number] [facility] 2020-06-16 2020-06-16 Outpatient [facility] [id number] [facility] 2020-06-07 2020-06-07 Refill Gillis, [facility] [id number] 00:00:00 00:00:00 [place] [id number] [place] [id number] Professio [phone] [address] 2020-05-28 2020-05-28 Outpatient [facility] [id number] [facility] 2020-05-18 2020-05-18 Telephone Gillis, [facility] [id number] 00:00:00 00:00:00 [place] [id number] [place] [id number] Professio [phone] [address] 2020-05-12 2020-05-12 Refill Gillis, [facility] [id number] 00:00:00 00:00:00 [place] [id number] [place] [id number] Professio [phone] [address] 2020-05-06 2020-05-06 Refill Gillis, [facility] [id number] 00:00:00 00:00:00 [place] [id number] [place] [id number] Professio [phone] [address] 2020-04-28 2020-04-28 Telephone Carlin [facility] [id number] 00:00:00 00:00:00 [place] [id number] [place] [id number] Professio [phone] [address] 2020-04-21 2020-04-21 Patient Omar [facility] [id number] 00:00:00 00:00:00 Outreach [facility] [id number] [facility] [id number] PAVILLION [phone] [facility] 2020-04-09 2020-04-09 Outpatient [facility] [id number] [facility] 2020-03-24 2020-03-24 Outpatient [facility] [id number] [facility] 2020-03-18 2020-03-18 Outpatient [facility] [id number] [facility] 2020-03-17 2020-03-17 Refill Carlin [facility] [id number] 00:00:00 00:00:00 [place] [id number] [place] [id number] Professio [phone] [address] 2020-03-10 2020-03-10 Outpatient [facility] [id number] [facility] 2020-02-20 2020-02-20 Outpatient [facility] [id number] [facility] 2020-02-20 2020-02-20 [facility] [id number] 00:00:00 00:00:00 [place] [id number] [place] [id number] Professio [phone] nal 220 Building 2020-02-05 2020-02-05 Outpatient [facility] [id number] [facility] 2020-02-03 2020-02-03 Outpatient [facility] [id number] [facility] 2020-02-03 2020-02-03 Outpatient [facility] [id number] [facility] 2020-02-02 2020-02-02 Outpatient [facility] [id number] [facility] 2020-01-28 2020-01-28 Outpatient [facility] [id number] [facility] 2020-01-27 2020-01-27 Outpatient [facility] [id number] [facility] 2020-01-23 2020-01-23 Outpatient [facility] [id number] [facility] 2020-01-22 2020-01-22 Orders Doctor KEMP [id number] 00:00:00 00:00:00 Only Unassigned, IVA [id number] [place] [facility] 4.2.7.2.686 [phone] [id number] 2020-01-20 2020-01-20 Office Gillis, [facility] [id number] 13:47:46 15:12:23 Visit Gregoria Ruiz [id number] [place] [id number] Professio [phone] nal [address] [facility] 2020-01-12 2020-01-12 Outpatient [facility] [id number] [facility] 2020-01-06 2020-01-06 Outpatient [facility] [id number] [facility]00 00:00:00 [facility] ent Clinics 2020-01-02 2020-01-02 Outpatient [facility] [id number] [facility]00 00:00:00 [facility] ent [facility] 2019-12-26 2019-12-26 Outpatient [facility] [id number] [facility] 00:[facility]00 00:00:00 [facility] ent [facility] 2019-12-22 2019-12-22 Outpatient [facility] [id number] [facility] 00:[facility]:[address] [facility] Results Test Description Test Time Test Comments Results Result Comments Source Blood Culture - Routine (Right Venipuncture) 2020-07-22 22:0 0:00 Test Item Value Reference Range Interpretation Comme nts Result (test code = 6463-4) No growth in 5 days [facility] [id number] 22:00:00 Test Item Value Reference Range Interpretation Comments CULTURE (BEAKER) (test No growth in 5 days code = 1095) BLOOD [id number] 22:00:00 Test Item Value Reference Range Interpretation Comments CULTURE (BEAKER) (test No growth in 5 days code = 1095) POC-Glucose [id number] 11:58:00 Test Item Value Reference Range Interpretation Comments POC-Glucose Meter (test 221 mg/dL 70-110 H : TE STED AT [facility] code = 1538) 67[address] [facility] 770 30: Furniture Manager/Techni tyrone ID = [id number] for GHULAM MATA Lab Interpretation (test Abnormal code = 12088-1) [facility] [id number] 11:58:00 Test Item Value Reference Range Interpretation Comments POC-GLUCOSE METER 221 mg/dL 70-110 H : TESTED A T [facility] 6720 (BEAKER) (test code = MIGUEL Martin [facility], 1538) 85845: Furniture Manager/Techni tyrone ID = [id number] for GHULAM MAJANO [id number] 10:35:00 Test Item Value Reference Range Interpretation Comments PTT (test code = 67.9 See_Comment H [Automated message] 67839-9) The system [employer] generated this result transmitted ref erence range: 22.5 - 3 6.0 seconds. The reference range was not used to int erpret this result as normal/abnormal . Lab Interpretation (test Abnormal code = 68728-7) [id number] 10:35:00 Test Item Value Reference Range Interpretation Comments PARTIAL THROMBOPLASTIN TIME 67.9 seconds 22.5-36.0 H (BEAKER) (test code = 760) POCT-GLUCOSE [id number] 07:57:00 Test Item Value Reference Range Interpretation Comments POC-GLUCOSE METER 188 mg/dL 70-110 H : TESTED A T [facility] 6720 (BEAKER) (test code = [facility], 1538) 61000: Furniture Manager/Techni tyrone ID = [id number] for GHULAM MAJANO [id number] 03:16:00 Test Item Value Reference Range Interpretation Comments PARTIAL THROMBOPLASTIN TIME 58.1 seconds 22.5-36.0 H (BEAKER) (test code = 760) POCT-GLUCOSE [id number] 21:56:00 Test Item Value Reference Range Interpretation Comments POC-GLUCOSE METER 225 mg/dL 70-110 H : TESTED A T [facility] 6720 (BEAKER) (test code = [facility], 1538) 64549: Furniture Manager/Techni tyrone ID = [id number] for SEAMUS SANTOS [id number] 18:33:00 Test Item Value Reference Range Interpretation Comments PARTIAL THROMBOPLASTIN TIME 47.3 seconds 22.5-36.0 H (BEAKER) (test code = 760) [id number] 17:13:00 Test Item Value Reference Range Interpretation Comments PARTIAL THROMBOPLASTIN TIME > seconds 22.5-36.0 HH (BEAKER) (test code = 760) POCT-GLUCOSE [id number] 17:06:00 Test Item Value Reference Range Interpretation Comments POC-GLUCOSE METER 193 mg/dL 70-110 H : TESTED A T [facility] 6720 (BEAKER) (test code = [facility], 1538) 68974: Furniture Manager/Techni tyrone ID = [id number] for DA VIS, KEYAIRA POCT-GLUCOSE [id number] 13:16:00 Test Item Value Reference Range Interpretation Comments POC-GLUCOSE METER 230 mg/dL 70-110 H : TESTED A T [facility] 6720 (BEAKER) (test code = [facility] Veronica [facility], 1538) 84949: Furniture Manager/Techni tyrone ID = [id number] for DA VIS, KEYAIRA POCT-GLUCOSE [id number] 07:59:00 Test Item Value Reference Range Interpretation Comments POC-GLUCOSE METER 143 mg/dL 70-110 H : TESTED A T [facility] 6720 (BEAKER) (test code = [facility], 1538) 03973: Furniture Manager/Techni tyrone ID = [id number] for DA VIS, KEYAIRA [id number] 06:08:00 Test Item Value Reference Range Interpretation Comments PARTIAL THROMBOPLASTIN TIME 106.1 seconds 22.5-36.0 H (BEAKER) (test code = 760) [id number] 22:41:00 Test Item Value Reference Range Interpretation Comments PARTIAL THROMBOPLASTIN TIME 93.2 seconds 22.5-36.0 H (BEAKER) (test code = 760) Basic Metabolic [id number] 22:40:00 Test Item Value Reference Range Interpretation Comments Sodium (test code = 139 meq/L 188-324 6398-2) Potassium (test code = 4.2 meq/L 3.5-5.1 2823-3) Chloride (test code = 107 meq/L 98-107 2075-0) CO2 (test code = 24 meq/L 22-29 8-9) BUN (test code = 22 mg/dL 7-21 H 3094-0) Creatinine (test code 1.06 mg/dL 0.57-1.25 = 2160-0) Glucose (test code = 166 mg/dL 70-105 H 2345-7) Calcium (test code = 8.4 mg/dL 8.4-10.2 53708-9) EGFR (test code = 52 mL/min/1.73 [place] [address]-5) NOT ACCURATE CREATININE CLEARANCE IN PREDICTING GLOMERULAR FILTRATION RATE . ESTIMATED GFR I S NOT APPLICABLE FOR DIALYSIS PATIENTS. HALEY (test code = HALEY) Furniture Manager ID - DB Lab Interpretation Abnormal (test code = 00706-9) [facility] METABOLIC [id number] 22:40:00 Test Item Value Reference Range Interpretation Comments SODIUM (BEAKER) 139 meq/L 136-145 (test code = 381) POTASSIUM (BEAKER) 4.2 meq/L 3.5-5.1 (test code = 379) CHLORIDE (BEAKER) 107 meq/L 98-107 (test code = 382) CO2 (BEAKER) (test 24 meq/L 22-29 code = 355) BLOOD UREA NITROGEN 22 mg/dL 7-21 H (BEAKER) (test code = 354) CREATININE (BEAKER) 1.06 mg/dL 0.57-1.25 (test code = 358) GLUCOSE RANDOM 166 mg/dL 70-105 H (BEAKER) (test code = 652) CALCIUM (BEAKER) 8.4 mg/dL 8.4-10.2 (test code = 697) EGFR (BEAKER) (test 52 mL/min/1.73 ESTIMA DEDRICK GFR IS code = 1092) sq m NOT ACCURATE CREATININE CLEARANCE IN PREDICTING GLOMERULAR FILTRATION RATE . ESTIMATED GFR I S NOT APPLICABLE FOR DIALYSIS PATIEN TS. Furniture Manager ID - DBPOCT-GLUCOSE [id number] 21:40:00 Test Item Value Reference Range Interpretation Comments POC-GLUCOSE METER 155 mg/dL 70-110 H : TESTED A T [facility] 6720 (Provade) (test code = [facility] Cashier Live [facility], 1538) [address]: Furniture Manager/Techni tyrone ID = [id number] for GR AHALia, JULIETA POCT-GLUCOSE [id number] 17:15:00 Test Item Value Reference Range Interpretation Comments POC-GLUCOSE METER 175 mg/dL 70-110 H : TESTED A T [facility] 6720 (Provade) (test code = Click Contact [facility], 1538) [address]: Furniture Manager/Techni tyrone ID = [id number] for KEVEN VALENTINE [id number] 13:59:00 Test Item Value Reference Range Interpretation Comments PARTIAL THROMBOPLASTIN TIME 61.1 seconds 22.5-36.0 H (BEAKER) (test code = 760) POCT-GLUCOSE [id number] 11:53:00 Test Item Value Reference Range Interpretation Comments POC-GLUCOSE METER 231 mg/dL 70-110 H : TESTED A T [facility] 6720 (BEAKER) (test code = [facility] Veronica [facility], 1538) [address]: Furniture Manager/Techni tyrone ID = [id number] for EMILY FOY Hemoglobin [id number] 09:03:00 Test Item Value Reference Range Interpretation Comments Hemoglobin A1C (test code = 4548-4) 8.7 % 4.3-6.1 H Lab Interpretation (test code = Abnormal 01200-8) [facility] [id number] 09:03:00 Test Item Value Reference Range Interpretation Comments HEMOGLOBIN A1C (BEAKER) (test code = 8.7 % 4.3-6.1 H 368) TSH/Free T4 If [id number] 09:00:00 Test Item Value Reference Range Interpretation Comments TSH (test code = 1.553 See_Comment [Automated 63272-3) message] The system which generated this result transmit dedrick reference range : 0.350 - 4.940 uIU/mL. The reference range was not used to interpret this result as normal/abnormal . HALEY (test code = HALEY) Furniture Manager ID - BRIDGET Fitzgerald Lab Interpretation Normal (test code = 77600-3) [facility] T4 IF [id number] 09:00:00 Test Item Value Reference Range Interpretation Comments THYROID STIMULATING HORMONE 1.553 uIU/mL 0.350-4.940 (ZOILAAKER) (test code = 772) Furniture Manager ID - BRIDGET [id number] 07:26:00 Test Item Value Reference Range Interpretation Comments PARTIAL THROMBOPLASTIN TIME 57.8 seconds 22.5-36.0 H (BEAKER) (test code = 760) POCT-GLUCOSE [id number] 07:20:00 Test Item Value Reference Range Interpretation Comments POC-GLUCOSE METER 204 mg/dL 70-110 H : TESTED A T [facility] 6720 (BEAKER) (test code = [facility] Veronica [facility], 1538) [address]: Furniture Manager/Techni tyrone ID = [id number] for EMILY FOY CBC with platelet count + automated [id number] 07:14:00 Test Item Value Reference Range Interpretation Comments WBC (test code = 6690-2) 9.1 See_Comment [A utomated message] The system Taodyne generated this result transmitted ref erence range: 3.5 - 10 .5 K/L. The refe rence range was not u sed to interpret this result as normal/abnor mal. RBC (test code = 789-8) 2.90 See_Comment L [Au tomated message] The system Taodyne generated this result transmitted ref erence range: 3.93 - 5 .22 M/L. The refe rence range was not u sed to interpret this result as normal/abnor mal. MCHC (test code = 786-4) 29.3 See_Comment L [A utomated message] The system Taodyne generated this result transmitted ref erence range: 32.2 - 3 5.5 GM/DL. The refe rence range was not u sed to interpret this result as normal/abnor mal. Hematocrit (test code = 28.7 % 34.1-44.9 L 4544-3) MCV (test code = 787-2) 99.0 fL 79.4-94.8 H MCH (test code = 785-6) 29.0 pg 25.6-32.2 RDW (test code = 788-0) 14.6 % 11.7-14.4 H Platelets (test code = 270 See_Comment [Aut omated message] 777-3) The system Taodyne generated this result transmitted ref erence range: 150 - 45 0 K/CU MM. The referen ce range was not u sed to interpret this result as normal/abnor mal. MPV (test code = 9.4 fL 9.4-12.3 35536-3) nRBC (test code = 413) 0 See_Comment [Aut omated message] The system Taodyne generated this result transmitted ref erence range: 0 - 0 /1 00 WBC. The refere nce range was not u sed to interpret this result as normal/abnor mal. Lab Interpretation (test Abnormal code = 31947-9) [facility] [id number] 07:14:00 Test Item Value Reference Range Interpretation Comments % Neutros (test code = 75 % 2816) % Lymphs (test code = 6 % 2817) % Monos (test code = 4 % 2818) % Eos (test code = 2819) 6 % % Metamyelo (test code = 1 % 0-0 H 2821) % Myelo (test code = 4 % 0-0 H 2822) % Bands (test code = 4 % 0-10 2826) # Neutros (test code = 6.83 K/ul 1.56-6.13 H 2830) # Lymphs (test code = 0.55 K/ul 1.18-3.74 L 2831) # Monos (test code = 0.36 K/uL 0.24-0.36 2832) # Eos (test code = 2834) 0.55 K/uL 0.04-0.36 H # Metamyelo (test code = 0.09 K/uL 0-0 H 2836) # Myelo (test code = 0.36 K/uL 0-0 H 2837) # Bands (test code = 0.36 K/uL 0-0.8 2840) Total Counted (test code 100 = 1351) RBC Morphology (test code Normal = 762) Platelet Morphology (test Normal code = 486) Smudge Cells (test code = Present 1371) Artifact (test code = Present 3432) Platelet Conc (test code Adequate = 3438) HALEY (test code = HALEY) Furniture Manager ID - Samantha Ireland comments: Slide comments: Lab Interpretation (test Abnormal code = 87845-5) [facility] W/PLT COUNT & AUTO [id number] 07:14:00 Test Item Value Reference Range Interpretation Comments WHITE BLOOD CELL COUNT (BEAKER) 9.1 K/ L 3.5-10.5 (test code = 775) RED BLOOD CELL COUNT (BEAKER) 2.90 M/ L 3.93-5.22 L (test code = 761) HEMOGLOBIN (BEAKER) (test code = 8.4 GM/DL 11.2-15.7 L 410) HEMATOCRIT (BEAKER) (test code = 28.7 % 34.1-44.9 L 411) MEAN CORPUSCULAR VOLUME (BEAKER) 99.0 fL 79.4-94.8 H (test code = 753) MEAN CORPUSCULAR HEMOGLOBIN 29.0 pg 25.6-32.2 (BEAKER) (test code = 751) MEAN CORPUSCULAR HEMOGLOBIN CONC 29.3 GM/DL 32.2-35.5 L (BEAKER) (test code = 752) RED CELL DISTRIBUTION WIDTH 14.6 % 11.7-14.4 H (BEAKER) (test code = 412) PLATELET COUNT (BEAKER) (test 270 K/CU MM 150-450 code = 756) MEAN PLATELET VOLUME (BEAKER) 9.4 fL 9.4-12.3 (test code = 754) NUCLEATED RED BLOOD CELLS 0 /100 WBC 0-0 (BEAKER) (test code = 413) (CELLAVISION MANUAL DIFF)2020-07-18 07:14:00 Test Item Value Reference Range Interpretation Comments NEUTROPHILS - REL 75 % (CELLAVISION)(BEAKER) (test code = 2816) LYMPHOCYTES - REL 6 % (CELLAVISION)(BEAKER) (test code = 2817) MONOCYTES - REL 4 % (CELLAVISION)(BEAKER) (test code = 2818) EOSINOPHILS - REL 6 % (CELLAVISION)(BEAKER) (test code = 2819) METAMYELOCYTES - REL 1 % 0-0 H (CELLAVISION)(BEAKER) (test code = 2821) MYELOCYTES - REL 4 % 0-0 H (CELLAVISION)(BEAKER) (test code = 2822) BANDS - REL (CELLAVISION)(BEAKER) 4 % 0-10 (test code = 2826) NEUTROPHILS - ABS 6.83 K/ul 1.56-6.13 H (CELLAVISION)(BEAKER) (test code = 2830) LYMPHOCYTES - ABS 0.55 K/ul 1.18-3.74 L (CELLAVISION)(BEAKER) (test code = 2831) MONOCYTES - ABS 0.36 K/uL 0.24-0.36 (CELLAVISION)(BEAKER) (test code = 2832) EOSINOPHILS - ABS 0.55 K/uL 0.04-0.36 H (CELLAVISION)(BEAKER) (test code = 2834) METAMYELOCYTES - ABS 0.09 K/uL 0.00-0.00 H (CELLAVISION)(BEAKER) (test code = 2836) MYELOCYTES-ABS 0.36 K/uL 0.00-0.00 H (CELLAVISION)(BEAKER) (test code = 2837) BANDS - ABS (CELLAVISION)(BEAKER) 0.36 K/uL 0.00-0.80 (test code = 2840) TOTAL COUNTED (BEAKER) (test code = 100 1351) RBC MORPHOLOGY (BEAKER) (test code Normal = 762) PLT MORPHOLOGY (BEAKER) (test code Normal = 486) SMUDGE CELLS (BEAKER) (test code = Present 1371) ARTIFACT (CELLAVISION)(BEAKER) Present (test code = 3432) PLATELET CONCENTRATION Adequate (CELLAVISION)(BEAKER) (test code = 3438) Furniture Manager ID - Samantha Beka comments: Slide comments:[id number] 01:31:00 Test Item Value Reference Range Interpretation Comments PARTIAL THROMBOPLASTIN TIME 29.1 seconds 22.5-36.0 (BEAKER) (test code = 760) CBC (Hemogram only)2020-07-18 01:14:00 Test Item Value Reference Range Interpretation Comments WBC (test code = 6690-2) 9.1 See_Comment [A utomated message] The system Taodyne generated this result transmitted ref erence range: 3.5 - 10 .5 K/L. The refe rence range was not u sed to interpret this result as normal/abnor mal. RBC (test code = 789-8) 2.90 See_Comment L [Au tomated message] The system Taodyne generated this result transmitted ref erence range: 3.93 - 5 .22 M/L. The refe rence range was not u sed to interpret this result as normal/abnor mal. MCHC (test code = 786-4) 29.3 See_Comment L [A utomated message] The system Taodyne generated this result transmitted ref erence range: 32.2 - 3 5.5 GM/DL. The refe rence range was not u sed to interpret this result as normal/abnor mal. Hematocrit (test code = 28.7 % 34.1-44.9 L 4544-3) MCV (test code = 787-2) 99.0 fL 79.4-94.8 H MCH (test code = 785-6) 29.0 pg 25.6-32.2 RDW (test code = 788-0) 14.6 % 11.7-14.4 H Platelets (test code = 270 See_Comment [Aut omated message] 777-3) The system Taodyne generated this result transmitted ref erence range: 150 - 45 0 K/CU MM. The referen ce range was not u sed to interpret this result as normal/abnor mal. MPV (test code = 9.4 fL 9.4-12.3 03624-0) nRBC (test code = 413) 0 See_Comment [Aut omated message] The system Taodyne generated this result transmitted ref erence range: 0 - 0 /1 00 WBC. The refere nce range was not u sed to interpret this result as normal/abnor mal. Lab Interpretation (test Abnormal code = 88431-4) [facility] (HEMOGRAM ONLY)2020-07-18 01:14:00 Test Item Value Reference Range Interpretation Comments WHITE BLOOD CELL COUNT (BEAKER) 9.1 K/ L 3.5-10.5 (test code = 775) RED BLOOD CELL COUNT (BEAKER) 2.90 M/ L 3.93-5.22 L (test code = 761) HEMOGLOBIN (BEAKER) (test code = 8.4 GM/DL 11.2-15.7 L 410) HEMATOCRIT (BEAKER) (test code = 28.7 % 34.1-44.9 L 411) MEAN CORPUSCULAR VOLUME (BEAKER) 99.0 fL 79.4-94.8 H (test code = 753) MEAN CORPUSCULAR HEMOGLOBIN 29.0 pg 25.6-32.2 (BEAKER) (test code = 751) MEAN CORPUSCULAR HEMOGLOBIN CONC 29.3 GM/DL 32.2-35.5 L (BEAKER) (test code = 752) RED CELL DISTRIBUTION WIDTH 14.6 % 11.7-14.4 H (BEAKER) (test code = 412) PLATELET COUNT (BEAKER) (test 270 K/CU MM 150-450 code = 756) MEAN PLATELET VOLUME (BEAKER) 9.4 fL 9.4-12.3 (test code = 754) NUCLEATED RED BLOOD CELLS 0 /100 WBC 0-0 (BEAKER) (test code = 413) [id number] 23:48:00 Test Item Value Reference Range Interpretation Comments PARTIAL THROMBOPLASTIN TIME 29.1 seconds 22.5-36.0 (BEAKER) (test code = 760) (CELLAVISION MANUAL DIFF)2020-07-17 21:31:00 Test Item Value Reference Range Interpretation Comments NEUTROPHILS - REL 75 % (CELLAVISION)(BEAKER) (test code = 2816) LYMPHOCYTES - REL 4 % (CELLAVISION)(BEAKER) (test code = 2817) MONOCYTES - REL 5 % (CELLAVISION)(BEAKER) (test code = 2818) EOSINOPHILS - REL 6 % (CELLAVISION)(BEAKER) (test code = 2819) METAMYELOCYTES - REL 3 % 0-0 H (CELLAVISION)(BEAKER) (test code = 2821) MYELOCYTES - REL 2 % 0-0 H (CELLAVISION)(BEAKER) (test code = 2822) BANDS - REL (CELLAVISION)(BEAKER) 4 % 0-10 (test code = 2826) ATYPICAL LYMPHOCYTES - REL 1 % 0-0 H (CELLAVISION)(BEAKER) (test code = 2829) NEUTROPHILS - ABS 7.28 K/ul 1.56-6.13 H (CELLAVISION)(BEAKER) (test code = 2830) LYMPHOCYTES - ABS 0.39 K/ul 1.18-3.74 L (CELLAVISION)(BEAKER) (test code = 2831) MONOCYTES - ABS 0.49 K/uL 0.24-0.36 H (CELLAVISION)(BEAKER) (test code = 2832) EOSINOPHILS - ABS 0.58 K/uL 0.04-0.36 H (CELLAVISION)(BEAKER) (test code = 2834) METAMYELOCYTES - ABS 0.29 K/uL 0.00-0.00 H (CELLAVISION)(BEAKER) (test code = 2836) MYELOCYTES-ABS 0.19 K/uL 0.00-0.00 H (CELLAVISION)(BEAKER) (test code = 2837) BANDS - ABS (CELLAVISION)(BEAKER) 0.39 K/uL 0.00-0.80 (test code = 2840) ATYPICAL LYMPHOCYTES - ABS 0.10 K/uL 0.00-0.00 H (CELLAVISION)(BEAKER) (test code = 2858) TOTAL COUNTED (BEAKER) (test code = 100 1351) WBC MORPHOLOGY (BEAKER) (test code Normal = 487) PLT MORPHOLOGY (BEAKER) (test code Normal = 486) POIKILOCYTES (BEAKER) (test code = 1+ few 966) ELLIPTOCYTES (BEAKER) (test code = 1+ few 962) ARTIFACT (CELLAVISION)(BEAKER) Present (test code = 3432) PLATELET CONCENTRATION Adequate (CELLAVISION)(BEAKER) (test code = 3438) Furniture Manager ID - Barbra comments: Slide comments:POCT-GLUCOSE METER 2020-07-17 21:28:00 Test Item Value Reference Range Interpretation Comments POC-GLUCOSE METER 245 mg/dL 70-110 H : TESTED A T [facility] 6720 (BEAKER) (test code = [facility] [place], 1538) [address]: Furniture Manager/Techni tyrone ID = [id number] for SEKOU BHARDWAJ Hepatic function [id number] 21:14:00 Test Item Value Reference Range Interpretation Comments Protein, Total (test 5.8 See_Comment L [Autom ated code = 2885-2) message] The system which generated this result transmit dedrick reference range : 6.0 - 8.3 gm/dL . The reference range was not u sed to interpret th is result as normal/abnormal . Albumin (test code = 2.9 g/dL 3.5-5 L 78831-5) Total Bilirubin (test 0.2 mg/dL 0.2-1.2 code = 1974-2) Bilirubin, Direct 0.1 mg/dL 0.1-0.5 (test code = 1967-7) Alkaline Phosphatase 57 U/L 40-150 (test code = 6768-6) AST (test code = 14 U/L 5-34 1920-8) ALT (test code = 23 U/L 6-55 1742-6) HALEY (test code = HALEY) Furniture Manager ID - VITALIY Lab Interpretation Abnormal (test code = 86297-2) [facility] 21:14:00 Test Item Value Reference Range Interpretation Comments Magnesium (test code = 2.0 mg/dL 1.6-2.6 00397-9) HALEY (test code = HALEY) Furniture Manager ID - VITALIY Lab Interpretation (test Normal code = 87585-5) [facility]OLIC [id number] 21:14:00 Test Item Value Reference Range Interpretation Comments SODIUM (BEAKER) 139 meq/L 136-145 (test code = 381) POTASSIUM (BEAKER) 5.0 meq/L 3.5-5.1 (test code = 379) CHLORIDE (BEAKER) 108 meq/L 98-107 H (test code = 382) CO2 (BEAKER) (test 24 meq/L 22-29 code = 355) BLOOD UREA NITROGEN 23 mg/dL 7-21 H (BEAKER) (test code = 354) CREATININE (BEAKER) 1.10 mg/dL 0.57-1.25 (test code = 358) GLUCOSE RANDOM 235 mg/dL 70-105 H (BEAKER) (test code = 652) CALCIUM (BEAKER) 8.5 mg/dL 8.4-10.2 (test code = 697) EGFR (BEAKER) (test 50 mL/min/1.73 ESTIMA DEDRICK GFR IS code = 1092) sq m NOT ACCURATE CREATININE CLEARANCE IN PREDICTING GLOMERULAR FILTRATION RATE . ESTIMATED GFR I S NOT APPLICABLE FOR DIALYSIS PATIEN TS. Furniture Manager ID - NETBGIENEOCEKVDP8925-64-29 21:14:00 Test Item Value Reference Range Interpretation Comments MAGNESIUM (BEAKER) (test code = 2.0 mg/dL 1.6-2.6 627) Furniture Manager ID - VITALIYHEPATIC FUNCTION [id number] 21:14:00 Test Item Value Reference Range Interpretation Comments TOTAL PROTEIN (BEAKER) (test code = 5.8 gm/dL 6.0-8.3 L 770) ALBUMIN (BEAKER) (test code = 1145) 2.9 g/dL 3.5-5.0 L BILIRUBIN TOTAL (BEAKER) (test code 0.2 mg/dL 0.2-1.2 = 377) BILIRUBIN DIRECT (BEAKER) (test 0.1 mg/dL 0.1-0.5 code = 706) ALKALINE PHOSPHATASE (BEAKER) (test 57 U/L 40-150 code = 346) AST (SGOT) (BEAKER) (test code = 14 U/L 5-34 353) ALT (SGPT) (BEAKER) (test code = 23 U/L 6-55 347) Furniture Manager ID - EMERSONProthrombin time/[id number] 21:07:00 Test Item Value Reference Interpretation Comments Range Protime (test code = 14.2 See_Comment [Autom ated 5792-2) message] The system which generated this result transmitted reference range : 11.9 - 14.2 seconds. The reference range was not used to interpret this result as normal/abnormal . INR (test code = 1.13 See_Comment [Automated 5181-6) message] The system which generated this result transmitted reference range : <=5.90. The reference range was not used to interpret this result as normal/abnormal . HALEY (test code = RECOMMENDED HALEY) COUMADIN/WARFARIN INR THERAPY RANGESSTANDARD DOSE: 2.0 - 3.0 Includes: PROPHYLAXIS for venous thrombosis, systemic embolization; TREATMENT for venous thrombosis and/or pulmonary embolus.HIGH RISK: Target INR is 2.5-3.5 for patients with mechanical heart valves. Lab Interpretation Normal (test code = 87477-6) [facility] HospitalPROTHROMBIN TIME/[id number] 21:07:00 Test Item Value Reference Range Interpretation Comments PROTIME (BEAKER) 14.2 seconds 11.9-14.2 (test code = 759) INR (BEAKER) (test 1.13 See_Comment [Automat ed message] code = 370) The system [facility] [employer] [facility] generated this result transmitted ref erence range: <=5.90. The reference range was not used to int erpret this result as normal/abnormal . RECOMMENDED COUMADIN/WARFARIN INR THERAPY RANGESSTANDARD DOSE: 2.0 - 3.0 Includes: PROPHYLAXIS forvenous thrombosis, systemic embolization; TREATMENT for venous thrombosis and/or pulmonary embolus.HIGH RISK: Target INR is 2.5-3.5 for patients with mechanical heart valves.CBC W/PLT COUNT & AUTO DIFFERENTIAL 2020-07-17 21:02:00 Test Item Value Reference Range Interpretation Comments WHITE BLOOD CELL COUNT (BEAKER) 9.7 K/ L 3.5-10.5 (test code = 775) RED BLOOD CELL COUNT (BEAKER) 3.03 M/ L 3.93-5.22 L (test code = 761) HEMOGLOBIN (BEAKER) (test code = 8.6 GM/DL 11.2-15.7 L 410) HEMATOCRIT (BEAKER) (test code = 30.0 % 34.1-44.9 L 411) MEAN CORPUSCULAR VOLUME (BEAKER) 99.0 fL 79.4-94.8 H (test code = 753) MEAN CORPUSCULAR HEMOGLOBIN 28.4 pg 25.6-32.2 (BEAKER) (test code = 751) MEAN CORPUSCULAR HEMOGLOBIN CONC 28.7 GM/DL 32.2-35.5 L (BEAKER) (test code = 752) RED CELL DISTRIBUTION WIDTH 14.6 % 11.7-14.4 H (BEAKER) (test code = 412) PLATELET COUNT (BEAKER) (test 292 K/CU MM 150-450 code = 756) MEAN PLATELET VOLUME (BEAKER) 10.0 fL 9.4-12.3 (test code = 754) NUCLEATED RED BLOOD CELLS 0 /100 WBC 0-0 (BEAKER) (test code = 413) POCT-GLUCOSE [id number] 18:18:00 Test Item Value Reference Range Interpretation Comments POC-GLUCOSE METER 230 mg/dL 70-110 H : TESTED A T [facility] 6720 (BEAKER) (test code = [facility] Veronica [facility], 1538) [address]: Furniture Manager/Techni tyrone ID = [id number] for DESTINI CRUM BLOOD [id number] 22:00:00 Test Item Value Reference Range Interpretation Comments CULTURE (BEAKER) (test No growth in 5 days code = 1095) BLOOD [id number] 19:00:00 Test Item Value Reference Range Interpretation Comments CULTURE (BEAKER) (test No growth in 5 days code = 1095) SARS-CoV2/RT-PCR (Asymptomatic ONLY)2020-04-26 18:09:00 Test Item Value Reference Range Interpretation Comments SARS-COV2/RT-PCR Negative Not Detected, Performanc e of the Xpert (test code = Negative, See Xpress 95820-1) external report SARS-CoV-2/F melissa/RSV test for linked test has only bee [...] Fact Sh eet for Healthcare Prov iders: https://www.[employer]/ Documents/Xpert %20Xpress %15ODBZ-FkP-9-F melissa-RSV/30 2-4508%20Rev.%2 0B%20HCP% 20Fact%20Sheet. pdf Fact Sheet for Healt hcare Patients: https://www.[employer]/ Documents/Xpert %20Xpress %42MUUX-WcC-8-F melissa-RSV/30 2-4507%20Rev.%2 0B%20Pati ent%20Fact%20Sh eet.pdf SARS-COV-2 SLSL Performed at:[facility] PERFORMING LAB [place] [id number] (test code = [place] [address]-4) [place] [address] ph: [phone] [facility] ([facility])2020-04-26 18:09:00 Test Item Value Reference Range Interpretation Comments SARS-COV2/RT-PCR Negative Not Detected, Performanc e of the Xpert (test code = Negative, See Xpress 7735134) external report SARS-CoV-2/F melissa/RSV test for linked test has only bee [...] sooner.Fact She et for Healthcare Prov iders: https://www.[employer]/ Documents/Xpert %20Xpress %29ZYVC-NtC-0-F melissa-RSV/30 2-4508%20Rev.%2 0B%20HCP% 20Fact%20Sheet. pdfFact Sheet for Healt hcare Patients: https://www.[employer]/ Documents/Xpert %20Xpress %94YJAM-GkT-7-F melissa-RSV/30 2-4507%20Rev.%2 0B%20Pati ent%20Fact%20Sh eet.pdf SARS-COV-2 SLSL Performed at:[facility] PERFORMING LAB [place] [id number] (test code = [place] 9499128) [place], [place] [address] ph: [phone] BASIC METABOLIC [id number] 17:46:00 Test Item Value Reference Range Interpretation [...] 1092) DATA TO CALCULA TE ESTIMATED GFR. Furniture Manager ID - [id number] ID - [id number] ID - [id number] ID - [id number] ID - [id number] ID - [id number] ID - [id number] ID - [id number] ID - [id number] ID - [id number] ID - [id number] ID - [id number] ID - [id number]- Reactive [id number] 17:40:00 Test Item Value Reference Range Interpretation Comments CRP (test code = 676) 0.41 mg/dL 0-0.5 HALEY (test code = HALEY) Furniture Manager ID - [id number] Lab Interpretation (test Normal code = 78640-2) [facility]ACTIVE [id number] 17:40:00 Test Item Value Reference Range Interpretation Comments C-REACTIVE PROTEIN (BEAKER) (test 0.41 mg/dL 0.00-0.50 code = 676) Furniture Manager ID - [id number] acid, [id number] 17:38:00 Test Item Value Reference Range Interpretation Comments Lactate, Venous (test code 0.75 mmol/L 0.5-2 = 2872) HALEY (test code = HALEY) Furniture Manager ID - [id number] ID - [id number] ID - [id number] ID - [id number] Lab Interpretation (test Normal code = 90670-5) [facility] HospitalLACTIC ACID, [id number] 17:38:00 Test Item Value Reference Range Interpretation Comments LACTATE BLOOD 0.75 mmol/L See_Comment [Automated me ssage] VENOUS (2) (BEAKER) The syst em which (test code = 2872) generated this result transmitted ref erence range: 0.50-<2. 00. The reference range was not used to interpr et this result as normal/abnormal . Furniture Manager ID - [id number] ID - [id number] ID - [id number] ID - [id number] W/PLT COUNT & AUTO [id number] 17:25:00 Test Item Value Reference Range Interpretation [...] 0-0 H PERCENT (BEAKER) (test code = 9405)
[2020-08-22 02:14] LABS: Absolute Lymphocytes (CBC) 0.9 K/uL (0.7-4.9); Basophils % 0.3 % (0-1.3); Hematocrit 35.3 % (36.0-45.0); Lymphocytes % 8.7 % (15.3-44.8); MPV 9.4 fL (7.6-11.3); RBC Red Blood Cell Count 3.99 M/uL (3.86-4.86)
[2020-08-22 02:15] LABS: Protime INR 1.06
--- NOTE | 2020-08-22 02:17 | P.HP ---
Certification for Inpatient Patient admitted to: Inpatient With expected LOS: >2 Midnights Patient will require the following post-hospital care: None Practitioner: I am a practitioner with admitting privileges, knowledge of patient current condition, hospital course, and medical plan of care. Services: Services provided to patient in accordance with Admission requirements found in Title 42 Section 412.3 of the Code of Federal Regulations Patient History Date of Service: 08/22/20 Primary Care Provider: Dr. Mireles Reason for admission: Panniculitis History of Present Illness: 65-year-old female with morbid obesity, diabetes mellitus type 2, hypertension, hypothyroidism, hyperlipidemia, obstructive sleep apnea, history of DVT on chronic anticoagulation and recurrent pannus infection presents emergency department for abdominal swelling/rash. Patient was seen here in admitted on 07/11/2020 for panniculitis, patient had prolonged hospital stay and was eventually transferred to tertiary center for evaluation from bariatric surgery for possible urgent intervention. Patient reports that upon arrival she was evaluated by the bariatric seen an infectious disease, patient was placed on Zyvox for a few days common bariatric surgery did recommend intervention after clearance of infection, weight loss, insurance approval and patient was discharged home on antibiotics. Patient has not gained been approved by her insurance or lost any of the weight required for the procedure, patient reports increasing redness/swelling/drainage from abdomen over the course of the last week. Allergies dapagliflozin [From Farxiga] Allergy (Verified 07/12/20:) dry mouth, stomach cramps latex Allergy (Verified 07/12/20:31) Hives/Rash levofloxacin Allergy (Verified 07/12/20:) Hives/Rash morphine Allergy (Verified 07/12/20:) Hallucination Penicillins Allergy (Verified 07/12/20:31) Shortness of breath sitagliptin [From Januvia] Allergy (Verified 07/12/20:31) Shortness of breath vancomycin Allergy (Verified 07/12/20:31) Nausea/Vomiting ciprofloxacin Adverse Reaction (Verified 07/12/20:) Anaphylaxis clarithromycin Adverse Reaction (Verified 07/12/20:) Shortness of breath Home Medications: Amlodipine Besylate 10 mg PO DAILY 05/18/20 Doxazosin [Cardura*] 1 mg PO BEDTIME 05/18/20 Furosemide [Lasix*] 20 mg PO DAILYPRN PRN 05/18/20 Insulin Aspart [Novolog Flexpen] 15 units SQ TID 05/18/20 Insulin Degludec [Tresiba Flextouch U-100] 60 units SQ BID 05/18/20 Levothyroxine Sodium [Synthroid] 200 mcg PO DAILY 05/18/20 Losartan Potassium [Cozaar] 100 mg PO DAILY 05/18/20 Metoprolol Succinate [Toprol Xl*] 50 mg PO DAILY 05/18/20 Milnacipran HCl [Savella] 100 mg PO BID 05/18/20 Pentoxifylline 400 mg PO DAILY 05/18/20 Potassium Oral Tab [Klor-Con 10 mEq Tab*] 20 meq PO DAILY 05/18/20 Pregabalin [Lyrica] 150 mg PO TID* 05/18/20 Ropinirole HCl [Requip*] 0.25 mg PO BEDTIME 05/18/20 Spironolactone [Aldactone*] 25 mg PO DAILY 05/18/20 Topiramate [Topiramate ER] 1 tab PO BID 05/18/20 Vit D3/Vit K2/Calc Frutoborate [Move Free Faptr-Gkchbi-Q7-D3] 4,000 iu PO DAILY 05/18/20 Rivaroxaban [Xarelto] 20 mg PO DAILY #30 tab 05/20/20 Fluticasone/Vilanterol [Breo Ellipta 200-25 Mcg INH] 1 puff IH DAILY 07/12/20 Phentermine HCl 1 tab PO DAILY 07/12/20 Apixaban [Eliquis] 5 mg PO BID #60 tablet 07/22/20 - Past Medical/Surgical History Diabetic: Yes -: DM -: HTN -: Hypothyroidism -: Morbid obesity -: Gerd -: Fibromyalgia -: Depression -: COPD -: dyslipidemia -: DVT -: OBSTRUCTIVE sleep apnea -: VITILIGO; CHRONIC MIGRAINES; DM NEUROPATHY -: R Heel spur repair -: Tubal ligation Psychosocial/ Personal History: She is and lives at home. She has 3 children - Family History Father -: Heart disease, Hypertension, Diabetes, Stroke Notes: STELLA'S DISEASE. Mother -: Heart disease, Cancer Notes: MYASTHENIA GRAVIS. breast ca. still living - Social History Smoking Status: Never smoker Alcohol use: No CD- Drugs: No Caffeine use: Yes Place of Residence: Home Review of Systems 10-point ROS is otherwise unremarkable General: Weakness, Malaise Integumentary: Rash, Other (Erythema, serosanguineous drainage from abdomen/pannus), As per HPI Physical Examination - Physical Exam General: Alert, In no apparent distress, Oriented x3, Obese HEENT: Atraumatic, PERRLA, Mucous membr. moist/pink, EOMI, Sclerae nonicteric Neck: Supple, 2+ carotid pulse no bruit, No LAD, Without JVD or thyroid abnormality Respiratory: Clear to auscultation bilaterally, Normal air movement Cardiovascular: Regular rate/rhythm, Normal S1 S2 Gastrointestinal: Normal bowel sounds, No tenderness, Other (Morbidly obese with very large pannus) Musculoskeletal: No tenderness Integumentary: Tenderness/swelling, Erythema, Warmth, Other (Multiple ulcerations to very large abdominal pannus with serosanguineous drainage) Neurological: Normal speech, Normal strength at 5/5 x4 extr, Normal tone, Normal affect Assessment and Plan - Plan Assessment Recurrent Panniculitis complicated with morbid obesity and very large pannus with multiple ulcerations present Diabetes mellitus type 2 Hypertension Hypothyroidism Hyperlipidemia Obstructive sleep apnea COPD History of DVT on chronic anticoagulation therapy Plan Recurrent Panniculitis complicated with morbid obesity and very large pannus with multiple ulcerations present: Patient with multiple antibiotic allergies, continue with zyvox, cefepime at this time. Patient was previously evaluated by infectious disease and bariatric surgery at [facility] in [place] who did recommend bariatric surgery but not until infection clears and patient loses weight as well as gaining clearance from insurance company which patient has not been able to accomplish at this time. Will consult wound healing, Infectious Disease. Blood and wound cultures obtained social work assistant consulted. Patient will likely require long-term antibiotic therapy, could potentially benefit from LTAC/snf facility at discharge. DVT prophylaxis, continue Eliquis. Diabetes mellitus type 2: A.c. HS Accu-Cheks, sliding scale insulin therapy. A1c with morning labs. Hypertension: Obtain and continue home medications as appropriate Hypothyroidism: Obtain and continue medications, thyroid panel morning labs Hyperlipidemia: Continue home medications, adjust as necessary Obstructive sleep apnea: Provide with CPAP at night. COPD : P.r.n. inhaler. History of DVT on chronic anticoagulation therapy: Continue medications including Eliquis. Discharge Plan: Home Plan to discharge in: Greater than 2 days - Advance Directives Does patient have a Living Will: No Does patient have a Durable POA for Healthcare: No - Code Status/Comfort Care Code Status Assessed: Yes (Full code) Critical Care: No Time Spent Managing Pts Care (In Minutes): 55
[2020-08-22] MEDS ORDERED: METOCLOPRAMIDE 10 MG/2mL INJ ONE (02:23)
[2020-08-22] MEDS ORDERED: DIPHENHYDRAMINE 50 MG/ML VIAL ONE (02:23)
[2020-08-22] MEDS ORDERED: CEFEPIME/SWI 1gm 10 ML ONE (02:23)
[2020-08-22] MEDS ORDERED: NA CHLORIDE 0.9% 1,000 ML ONE (02:23)
[2020-08-22 02:34] LABS: ALT/SGPT 35 U/L (12-78); AST/SGOT 12 U/L (15-37); Albumin 3.1 g/dL (3.4-5.0); Alkaline Phosphatase 91 U/L (45-117); Amylase 40 U/L (25-115); BUN Blood Urea Nitrogen 27 mg/dL (7-18); Bicarbonate 25 mmol/L (21-32); Bilirubin Direct < 0.1 mg/dL (0-0.2); Bilirubin Total 0.3 mg/dL (0.2-1.0); Creatine Phosphokinase 56 U/L (26-192); Glucose Level 195 mg/dL (74-106); Lipase 72 U/L (73-393); Potassium 4.4 mmol/L (3.5-5.1); Protein, Total 7.7 g/dL (6.4-8.2); Sodium Level 143 mmol/L (136-145); Troponin (Emerg Dept Use Only) < 0.02 ng/mL (0.0-0.045)
[2020-08-22 02:43] LABS: CKMB Creatine Kinase MB < 1.0 ng/mL (1.0-3.6)
[2020-08-22] MEDS ORDERED: LINEZOLID 600 MG IVPB 600 MG/300 ML BAG IV ONE (03:02)
--- NOTE | 2020-08-22 06:01 | EDPHYS ---
Physician Documentation [facility] Name: Kathia Phipps Age: 65 yrs Sex: Female : 1955 Arrival Date: 08/22/2020 Time: 00:13 Bed 6 Private MD: ED Physician Shekhar Banuelos HPI: 08/22 04:29 This 65 yrs old Female presents to ER via Wheelchair with complaints of Rash, mh7 Abdominal Pain, Headache. 04:29 The patient presents with cellulitis of the abdomen. Description: erythematous, warm. mh7 Onset: The symptoms/episode began/occurred 1 week(s) ago. Possible cause(s): unknown. 04:30 Associated signs and symptoms: Pertinent positives: drainage, erythema, headache, mh7 Pertinent negatives: discharge, foreign body sensation, fever, nausea, shortness of breath, swelling, vomiting. Modifying factors: the symptoms are alleviated by nothing, the symptoms are aggravated by nothing. Severity of symptoms: At their worst the symptoms were moderate, 5 day(s) ago, in the emergency department the symptoms are unchanged. The patient has experienced a previous episode, last month. Historical: - Allergies: 00:34 Cipro PO; bb 00:34 Clarithromycin; bb 00:34 Farmiga; bb 00:34 Farxiga; bb 00:34 Ibuprofen; bb 00:34 Januvia; bb 00:34 Latex, Natural Rubber; bb 00:34 Levaquin; bb 00:34 Morphine; bb 00:34 PENICILLINS; bb 00:34 sitagliptin; bb 00:34 Vancomycin; bb - Home Meds: 01:10 amlodipine 10 mg tab 1 tab once daily [Active]; MANUEL Herman Ortiga and Claude 3 [Active]; bb Breo Ellipta 200-25 mcg/dose inhalation dsdv 1 puff once daily [Active]; doxazosin 1 mg Oral tab 1 tab once daily [Active]; furosemide 20 mg Oral tab 1 tab once daily [Active]; losartan 100 mg Oral tab 1 tab once daily [Active]; metoprolol succinate 50 mg Oral Tb24 1 tab once daily [Active]; Novolog Flexpen 100 unit/mL subcutaneous inpn three times a day [Active]; pentoxifylline 400 mg Oral TbER 1 tab daily [Active]; phentermine 37.5 mg Oral tab 1 tab once daily [Active]; potassium chloride 20 mEq Oral TbER 1 tab once daily [Active]; ropinirole 0.2 mg Oral 1 tab once daily [Active]; Vitamin D Oral [Active]; Savella 100 mg Oral tab 1 tab 2 times per day [Active]; pregabalin Oral 150 mg 3 times per day [Active]; spironolactone 25 mg Oral tab 1 tab once daily [Active]; topiramate 50 mg Oral tab 1 tab 2 times per day [Active]; Tresiba FlexTouch U-200 200 unit/mL (3 mL) subcutaneous inpn twice a day [Active]; levothyroxine 200 mcg tab 1 tab once daily [Active]; - PMHx: 00:34 chronic fatigue; Diabetes - IDDM; dyslipidemia; Fibromyalgia; GERD; Hypertension; bb Hypothyroidism; Sleep Apnea; vitamin d deficiency; Vitiligo; - Immunization history:: Adult Immunizations up to date. - Social history:: Smoking status: Patient denies any tobacco usage or history of. ROS: 04:30 Constitutional: Negative for fever, chills, and weight loss, Eyes: Negative for injury, mh7 pain, redness, and discharge, ENT: Negative for injury, pain, and discharge, Neck: Negative for injury, pain, and swelling, Cardiovascular: Negative for chest pain, palpitations, and edema, Respiratory: Negative for shortness of breath, cough, wheezing, and pleuritic chest pain, Back: Negative for injury and pain, : Negative for injury, bleeding, discharge, and swelling, MS/Extremity: Negative for injury and deformity, Neuro: Negative for headache, weakness, numbness, tingling, and seizure, Psych: Negative for depression, anxiety, suicide ideation, homicidal ideation, and hallucinations, Allergy/Immunology: Negative for hives, rash, and allergies, Endocrine: Negative for neck swelling, polydipsia, polyuria, polyphagia, and marked weight changes, Hematologic/Lymphatic: Negative for swollen nodes, abnormal bleeding, and unusual bruising. Exam: 04:30 Constitutional: This is a well developed, well nourished patient who is awake, alert, mh7 and in no acute distress. Head/Face: Normocephalic, atraumatic. Eyes: Pupils equal round and reactive to light, extra-ocular motions intact. Lids and lashes normal. Conjunctiva and sclera are non-icteric and not injected. Cornea within normal limits. Periorbital areas with no swelling, redness, or edema. Chest/axilla: Normal chest wall appearance and motion. Nontender with no deformity. No lesions are appreciated. Cardiovascular: Regular rate and rhythm with a normal S1 and S2. No gallops, murmurs, or rubs. Normal PMI, no JVD. No pulse deficits. Respiratory: Lungs have equal breath sounds bilaterally, clear to auscultation and percussion. No rales, rhonchi or wheezes noted. No increased work of breathing, no retractions or nasal flaring. 04:30 Neuro: Awake and alert, GCS 15, oriented to person, place, time, and situation. Cranial nerves II-XII grossly intact. Motor strength 5/5 in all extremities. Sensory grossly intact. Cerebellar exam normal. Normal gait. Psych: Awake, alert, with orientation to person, place and time. Behavior, mood, and affect are within normal limits. 04:30 Abdomen/GI: Inspection: obese Bowel sounds: normal, in all quadrants, Palpation: nontender, in all quadrants, Indicators: 04:30 Abdomen/GI: erythema of pannus with weeping fluid. 04:30 Skin: cellulitis, that is moderate, irregular, on the abdomen and suprapubic area. Vital Signs: 00:32 BP 160 / 59; Pulse 79; Resp 18 S; Temp 98.4(O); Pulse Ox 100% on R/A; Weight 216.36 kg bb (R); Height 5 ft. 2 in. (157.48 cm) (R); Pain 10/10; 02:31 BP 150 / 68; Pulse 85; Resp 17; Pulse Ox 100% on 2 lpm NC; lp1 03:30 BP 138 / 74; Pulse 80; Resp 20; Pulse Ox 99% on 2 lpm NC; lp1 04:00 BP 161 / 86; Pulse 79; Resp 19; Pulse Ox 96% on 2 lpm NC; lp1 04:45 BP 156 / 93; Pulse 78; Resp 18; Pulse Ox 99% on 2 lpm NC; lp1 05:30 BP 144 / 85; Pulse 83; Resp 16; Pulse Ox 93% on 2 lpm NC; lp1 07:15 BP 138 / 89; Pulse 79; Resp 15; Pulse Ox 100% 2 lpm ; jl7 00:32 Body Mass Index 87.24 (216.36 kg, 157.48 cm) bb MDM: 05:59 Differential diagnosis: abscess, allergic reaction, cellulitis. Data reviewed: vital [facility] signs, nurses notes, lab test result(s), CBC, electrolytes, radiologic studies, CT scan. Data interpreted: Pulse oximetry: on room air is 99 %. Interpretation: normal. Counseling: I had a detailed discussion with the patient and/or guardian regarding: the historical points, exam findings, and any diagnostic results supporting the discharge/admit diagnosis, lab results, radiology results, the need for further work-up and treatment in the hospital. Response to treatment: the patient's symptoms have mildly improved after treatment. 06:01 Patient medically screened. [facility] 08/22 01:07 Order name: Amylase, Serum [facility] 08/22 01:07 Order name: Basic Metabolic Panel [facility] 08/22 01:07 Order name: Blood Culture Adult (2) [facility] 08/22 01:07 Order name: CBC with Diff; Complete Time: 04:11 [facility] 08/22 01:07 Order name: CPK; Complete Time: 04:11 [facility] 08/22 01:07 Order name: Ckmb; Complete Time: 04:11 [facility] 08/22 01:07 Order name: LFT's; Complete Time: 04:11 [facility] 08/22 01:07 Order name: Lactate; Complete Time: 04:11 [facility] 08/22 01:07 Order name: Lipase; Complete Time: 04:11 [facility] 08/22 01:07 Order name: Procalcitonin; Complete Time: 04:11 [facility] 08/22 01:07 Order name: Protime (+inr); Complete Time: 04:11 [facility] 08/22 01:07 Order name: Ptt, Activated; Complete Time: 04:11 [facility] 08/22 01:07 Order name: Troponin (emerg Dept Use Only); Complete Time: 04:11 [facility] 08/22 01:07 Order name: Urine Microscopic Only [facility] 08/22 01:07 Order name: Chest Single View XRAY [facility] 08/22 01:07 Order name: Accucheck; Complete Time: 02:26 [facility] 08/22 01:07 Order name: Cardiac monitoring; Complete Time: 02:25 mh7 08/22 01:07 Order name: Amylase; Complete Time: 04:11 EDMS 08/22 01:07 Order name: Basic Metabolic Panel; Complete Time: 04:11 EDMS 08/22 01:25 Order name: COVID-19 : Document "Date of Symptom Onset" if Symptomatic. la1 08/22 01:51 Order name: Wound Culture lp1 08/22 02:58 Order name: SARS-COV-2 RT PCR; Complete Time: 04:11 EDMS 08/22 03:02 Order name: CT Abd/Pelvis - IV Contrast Only bb 08/22 01:07 Order name: EKG - Nurse/Tech; Complete Time: 02:25 mh7 08/22 01:07 Order name: IV Saline Lock - Large Bore; Complete Time: 02:25 mh7 08/22 01:07 Order name: Labs collected and sent; Complete Time: 02:25 mh7 08/22 01:07 Order name: O2 Per Protocol; Complete Time: 02:25 mh7 08/22 01:07 Order name: O2 Sat Monitoring; Complete Time: 02:25 mh7 Administered Medications: 01:15 CANCELLED (Other Intervention Used): NS 0.9% (30 ml/kg) 30 ml/kg IV at bolus once; la1 Sepsis Protocol 02:15 Drug: Benadryl (diphenhydrAMINE) 50 mg Route: IVP; Site: left forearm; 1 03:56 Follow up: Response: No change in condition lp1 02:15 Drug: Reglan (metoCLOPramide) 10 mg Route: IVP; Site: left forearm; 1 03:56 Follow up: Response: No change in condition 1 02:15 Drug: Cefepime 1 grams Route: IVPB; Rate: 200 ml/hr; Infused Over: 30 mins; Site: left lp1 forearm; 03:00 Follow up: IV Status: Completed infusion; IV Intake: 10ml lp1 02:26 Drug: NS 0.9% 1000 ml Route: IV; Rate: 100 ml/hr; Site: left forearm; lp1 03:56 Drug: Linezolid 600 mg Route: IV; Rate: per protocol; Infused Over: 60 mins; Site: left lp1 forearm; 04:55 Follow up: IV Status: Completed infusion; IV Intake: 300ml 1 Disposition Summary: 08/22/20 06:01 Hospitalization Ordered Hospitalization Status: Inpatient Admission [facility] Provider: Arturo Mercer [facility] Location: Telemetry/MedSurg (Inpatient) [facility] Condition: Stable [facility] Problem: an acute exacerbation [facility] Symptoms: have improved [facility] Bed/Room Type: Standard [facility] Room Assignment: 215(08/22/20 07:32) em1 Diagnosis - Abdominal Wall Cellulitis [facility] Forms: - Medication Reconciliation Form [facility] - SBAR form [facility] Signatures: Dispatcher [employer] EDMS Xi Nur, RN RN bb Miguel A Aguilar em1 Christine Chahal RN RN lp1 Alberto Quach, POOL TECHNICIAN-C POOL TECHNICIAN-Cla1 Shekhar Banuelos MD MD [facility] Corrections: (The following items were deleted from the chart) 01:15 01:07 NS 0.9% (30 ml/kg) 30 ml/kg IV at bolus once; Sepsis Protocol ordered. [facility] la1 02:02 01:25 CORONAVIRUS ordered. EDIL EDMS 07:32 06:01 mh7 em1
--- NOTE | 2020-08-22 06:01 | ER ---
Nurse's Notes [facility] Name: Kathia Phipps Age: 65 yrs Sex: Female : 1955 Arrival Date: 08/22/2020 Time: 00:13 Bed 6 Private MD: Diagnosis: Abdominal Wall Cellulitis Presentation: 08/22 00:32 Chief complaint: Patient states: she was recently hospitalized for cellulitis of her pannus area and now the infections seems to be coming back she also has a bad headache. Dr Oscar told her to come to the ED for IV antibiotics. Coronavirus screen: At this time, the client does not indicate any symptoms associated with coronavirus-19. Ebola Screen: No symptoms or risks identified at this time. Initial Sepsis Screen: Does the patient meet any 2 criteria? No. Patient's initial sepsis screen is negative. Does the patient have a suspected source of infection? Yes: Skin breakdown/wound. Risk Assessment: Do you want to hurt yourself or someone else? Patient reports no desire to harm self or others. Onset of symptoms was August 22, 2020. 00:32 Method Of Arrival: Wheelchair bb 00:32 Acuity: ISSAC 3 bb Historical: - Allergies: 00:34 Cipro PO; bb 00:34 Clarithromycin; bb 00:34 Farmiga; bb 00:34 Farxiga; bb 00:34 Ibuprofen; bb 00:34 Januvia; bb 00:34 Latex, Natural Rubber; bb 00:34 Levaquin; bb 00:34 Morphine; bb 00:34 PENICILLINS; bb 00:34 sitagliptin; bb 00:34 Vancomycin; - Home Meds: 01:10 amlodipine 10 mg tab 1 tab once daily [Active]; MANUEL Herman Ortiga and Shokan 3 [Active]; bb Breo Ellipta 200-25 mcg/dose inhalation dsdv 1 puff once daily [Active]; doxazosin 1 mg Oral tab 1 tab once daily [Active]; furosemide 20 mg Oral tab 1 tab once daily [Active]; losartan 100 mg Oral tab 1 tab once daily [Active]; metoprolol succinate 50 mg Oral Tb24 1 tab once daily [Active]; Novolog Flexpen 100 unit/mL subcutaneous inpn three times a day [Active]; pentoxifylline 400 mg Oral TbER 1 tab daily [Active]; phentermine 37.5 mg Oral tab 1 tab once daily [Active]; potassium chloride 20 mEq Oral TbER 1 tab once daily [Active]; ropinirole 0.2 mg Oral 1 tab once daily [Active]; Vitamin D Oral [Active]; Savella 100 mg Oral tab 1 tab 2 times per day [Active]; pregabalin Oral 150 mg 3 times per day [Active]; spironolactone 25 mg Oral tab 1 tab once daily [Active]; topiramate 50 mg Oral tab 1 tab 2 times per day [Active]; Tresiba FlexTouch U-200 200 unit/mL (3 mL) subcutaneous inpn twice a day [Active]; levothyroxine 200 mcg tab 1 tab once daily [Active]; - PMHx: 00:34 chronic fatigue; Diabetes - IDDM; dyslipidemia; Fibromyalgia; GERD; Hypertension; bb Hypothyroidism; Sleep Apnea; vitamin d deficiency; Vitiligo; - Immunization history:: Adult Immunizations up to date. - Social history:: Smoking status: Patient denies any tobacco usage or history of. Screenin:31 Abuse screen: Denies threats or abuse. Denies injuries from another. Nutritional lp1 screening: No deficits noted. Tuberculosis screening: No symptoms or risk factors identified. Fall Risk Total Orozco Fall Scale indicates High Risk Score (45 or more points). Fall prevention measures have been instituted. Side Rails Up X 2 Frequent Obs/Assessments Occuring As available patient and family educated on Fall Prevention Program and Strategies. Assessment: 01:00 General: Appears uncomfortable, Behavior is appropriate for age. Pain: Complains of lp1 pain in suprapubic area Pain currently is 8 out of 10 on a pain scale. Quality of pain is described as aching. Neuro: Level of Consciousness is awake, alert, obeys commands, Oriented to person, place, time, situation, Reports headache frontal area. Cardiovascular: Patient's skin is warm and dry. Respiratory: Respiratory effort is even, unlabored, Breath sounds are diminished bilaterally. GI: Abdomen is obese, Bowel sounds present X 4 quads. Abd is soft and non tender X 4 quads. : No signs and/or symptoms were reported regarding the genitourinary system. EENT: No signs and/or symptoms were reported regarding the EENT system. Derm: large pannus with erythema in lower pannus, areas noted with weeping, dressing in place, skin noted to be dry in some areas. 01:00 Musculoskeletal: Circulation, motion, and sensation intact. Range of motion: intact in lp1 all extremities. 01:40 Reassessment: Redressed pannus with ABD pads and foam tape. lp1 04:00 Reassessment: Patient returned from CT, reports continued headache without relief; lp1 Provider notified. 05:15 Reassessment: Patient appears in no apparent distress at this time. Patient resting, lp1 eyes closed, respirations even, unlabored. 06:30 Reassessment: Assisted patient with repositioning, sitting up in chair at side of bed lp1 for further comfort; reports back pain while laying in stretcher. 06:40 Reassessment: Dr. Mercer at bedside to discuss plan of care with patient. lp1 Vital Signs: 00:32 BP 160 / 59; Pulse 79; Resp 18 S; Temp 98.4(O); Pulse Ox 100% on R/A; Weight 216.36 kg bb (R); Height 5 ft. 2 in. (157.48 cm) (R); Pain 10/10; 02:31 BP 150 / 68; Pulse 85; Resp 17; Pulse Ox 100% on 2 lpm NC; lp1 03:30 BP 138 / 74; Pulse 80; Resp 20; Pulse Ox 99% on 2 lpm NC; lp1 04:00 BP 161 / 86; Pulse 79; Resp 19; Pulse Ox 96% on 2 lpm NC; lp1 04:45 BP 156 / 93; Pulse 78; Resp 18; Pulse Ox 99% on 2 lpm NC; lp1 05:30 BP 144 / 85; Pulse 83; Resp 16; Pulse Ox 93% on 2 lpm NC; lp1 07:15 BP 138 / 89; Pulse 79; Resp 15; Pulse Ox 100% 2 lpm ; jl7 00:32 Body Mass Index 87.24 (216.36 kg, 157.48 cm) ED Course: 00:13 Patient arrived in ED. am4 00:34 Triage completed. bb 00:34 Arm band placed on Patient placed in an exam room, on a stretcher. Family accompanied patient. 00:51 Shekhar Banuelos MD is Attending Physician. 7 01:48 Chest Single View XRAY In Process Unspecified. EDMS 01:50 Missed attempt(s): 20 gauge in right forearm. Missed attempt(s): 22 gauge in right lp1 forearm. 01:51 Christine Chahal, NICOLE is Primary Nurse. lp1 02:00 Inserted saline lock: 20 gauge in left forearm, using aseptic technique. Blood rr5 collected. 02:31 Patient has correct armband on for positive identification. Placed in gown. Bed in low lp1 position. Call light in reach. Side rails up X2. environmental monitoring specialist on. Pulse ox on. NIBP on. 04:16 CT Abd/Pelvis - IV Contrast Only In Process Unspecified. EDMS 06:00 Arturo Mercer DO is Hospitalizing Provider. [facility] 06:03 No provider procedures requiring assistance completed. Patient admitted, IV remains in lp1 place. Administered Medications: 01:15 CANCELLED (Other Intervention Used): NS 0.9% (30 ml/kg) 30 ml/kg IV at bolus once; la1 Sepsis Protocol 02:15 Drug: Benadryl (diphenhydrAMINE) 50 mg Route: IVP; Site: left forearm; lp1 03:56 Follow up: Response: No change in condition lp1 02:15 Drug: Reglan (metoCLOPramide) 10 mg Route: IVP; Site: left forearm; lp1 03:56 Follow up: Response: No change in condition lp1 02:15 Drug: Cefepime 1 grams Route: IVPB; Rate: 200 ml/hr; Infused Over: 30 mins; Site: left lp1 forearm; 03:00 Follow up: IV Status: Completed infusion; IV Intake: 10ml lp1 02:26 Drug: NS 0.9% 1000 ml Route: IV; Rate: 100 ml/hr; Site: left forearm; lp1 03:56 Drug: Linezolid 600 mg Route: IV; Rate: per protocol; Infused Over: 60 mins; Site: left lp1 forearm; 04:55 Follow up: IV Status: Completed infusion; IV Intake: 300ml lp1 Intake: 03:00 IV: 10ml; Total: 10ml. lp1 04:55 IV: 300ml; Total: 310ml. lp1 Outcome: 06:01 Decision to Hospitalize by Provider. 7 06:03 Condition: stable lp1 06:03 Instructed on the need for admit. 08:34 Admitted to Tele accompanied by rickey, via wheelchair, room 215, with chart, Report jl7 called to NICOLE Ring 08:34 Patient left the ED. jl7 Signatures: Dispatcher [employer] EDMS Xi Nur, RN RN bb Christine Chahal RN RN lp1 Charlotte Crow RN RN jl7 Min Francisco RN RN [id number] Shekhar Banuelos MD MD [id number] Ese Aguilar am Alberto Quach [facility]
[2020-08-22] MEDS ORDERED: NA CHLORIDE 0.9% 1,000 ML IV SCH (08:52)
[2020-08-22] MEDS ORDERED: CEFEPIME 1 GM/VIAL IV SCH (09:00)
[2020-08-22] MEDS ORDERED: ENOXAPARIN 40 MG/0.4 ML SQ SCH (09:00)
[2020-08-22] MEDS: INSULIN -REGULAR HUMAN 50 UNIT/0.5 ML ML SQ SCH ×4 (09:15→20:58)
--- NOTE | 2020-08-22 10:00 | RAD REPORT ---
EXAM DESCRIPTION: Rebekah Single View08/22/2020 1:48 am CLINICAL HISTORY: Sepsis COMPARISON: June 2020 FINDINGS: The lungs appear clear of acute infiltrate. The heart is normal size IMPRESSION: No acute abnormalities displayed
--- NOTE | 2020-08-22 10:12 | P.PN ---
Subjective Date of Service: 08/22/20 Primary Care Provider: Dr. Mireles Chief Complaint: Panniculitis Subjective: Doing well Physical Examination - Vital Signs Temperature: 97.4 F Blood Pressure: 136/62 Pulse: 91 Respirations: 22 Pulse Ox (%): 98 - Studies Laboratory Data (last 24 hrs) 08/22/20 01:54: PT 12.2, INR 1.06, APTT 28.9 08/22/20 01:54: WBC 10.00, Hgb 11.0 L, Hct 35.3 L, Plt Count 191 08/22/20 01:54: Sodium 143, Potassium 4.4, BUN 27 H, Creatinine 1.04, Glucose 195 H, Total Bilirubin 0.3, AST 12 L, ALT 35, Alkaline Phosphatase 91, Amylase 40, Lipase 72 L Microbiology Data (last 24 hrs): 08/22/20 02:05 Blood - Blood Anaerobic Blood Culture - Final 08/22/20 01:30 Wound - Abdomen Gram Stain - Final Assessment & Plan Discharge Plan: LTAC Plan to discharge in: 48 Hours Physician Review Additional Text: CXR: COMPARISON: June 2020 FINDINGS: The lungs appear clear of acute infiltrate. The heart is normal size IMPRESSION: No acute abnormalities displayed CT Scan: final result pending Physical exam: General: Alert, In no apparent distress, Oriented x3, Obese HEENT: Atraumatic, PERRLA, Mucous membr. moist/pink, EOMI, Sclerae nonicteric Neck: Supple, 2+ carotid pulse no bruit, No LAD, Without JVD or thyroid abnormality Respiratory: Clear to auscultation bilaterally, Normal air movement Cardiovascular: Regular rate/rhythm, Normal S1 S2 Gastrointestinal: Normal bowel sounds, No tenderness, Other (Morbidly obese with very large pannus) Musculoskeletal: No tenderness Integumentary: Tenderness/swelling, Erythema, Warmth, Other (Multiple ulcerations to very large abdominal pannus with serosanguineous drainage) Neurological: Normal speech, Normal strength at 5/5 x4 extr, Normal tone, Normal affect Impression: Recurrent Panniculitis complicated with morbid obesity and very large pannus with multiple ulcerations Diabetes mellitus type 2 Hypertension Hypothyroidism Restless leg syndrome Obstructive sleep apnea COPD History of DVT on chronic anticoagulation therapy Chronic venous insufficiency Chronic migraine headaches Chronic diastolic CHF Diabetic neuropathy with chronic pain Morbid obesity, BMI 83 Plan Recurrent Panniculitis complicated with morbid obesity and very large pannus with multiple ulcerations: Patient stable at this time. Continue IV antibiotic therapyZyvox and cefepime. Continue to monitor the lab closely. Discontinue IV fluids. Continue with Aldactone 25 mg daily wanted to consider Lasix if with increased edema. Restart home medication. Will have wound care evaluate and assess and treat. Will consult infectious disease for further recommendation. Patient was previously evaluated by infectious disease and bariatric surgery at [facility] in [place]. They did not recommend bariatric surgery at that time until her infection cleared and the patient significantly lost weight. The patient would also have to get approval from the insurance company. This has not been accomplished since her last hospitalization. Blood and wound cultures obtained. Will recommend long-term acute care facility placement with continued IV antibiotic therapy and treatment. probation worker consulted to help in this process. Will continue to monitor the patient closely. Diabetes mellitus type 2: Will check A1c. Continue Accu-Cheks. Patient takes Tresiba at home. Will start Lantus 10 units subcu twice daily and address accordingly. Hypertension: Medications reviewed and restartedNorvasc 10 mg daily, Cardura 1 mg daily, metoprolol XL 50 mg daily and losartan 100 mg daily. Parameters in place. Will adjust accordingly. Hypothyroidism: Continue levothyroxine 200 mcg daily Restless leg syndrome: Restart Requip 0.25 mg daily Obstructive sleep apnea: Provide with CPAP at night. COPD : Continue with COPD treatment. Patient takes Breo at home. We will continue with Brovana, albuterol and Atrovent in the hospital. History of DVT on chronic anticoagulation therapy: Continue medications incl uding Eliquis 5 mg 1 pill twice daily. Venous insufficiency: Continue with Trental 400 mg daily Chronic migraine headaches: Continue with Topamax twice daily Chronic diastolic CHF: Continue with Aldactone. Consider Lasix if with increasing edema. IV fluids discontinued. Continue 1500 cc/day fluid restriction. Diabetic neuropathy with chronic pain: Continue Lyrica 150 mg 1 pill 3 times a day Morbid obesity, BMI 83: Continue lifestyle modification education. As recomme nded above bariatric surgery recommends that the patient lose a significant amount of weight before bariatric surgery is to be considered. DVT prophylaxis: Eliquis CODE STATUS: Full code Advance care [id number] minutes: Will pursue long-term acute care facility placement for continued IV medic treatment, wound care. Time Spent Managing Pts Care (In Minutes): 55
[2020-08-22] MEDS ORDERED: GLUCAGON 1 MG/VIAL IM PRN (10:20)
[2020-08-22] MEDS ORDERED: D50W 25 GM/50 ML VIAL IV PRN (10:39)
[2020-08-22] MEDS: CEFEPIME/SWI 1gm 10 ML IVP SCH ×2 (11:13→20:57)
[2020-08-22] MEDS: APIXABAN 5 MG TABLET PO SCH ×2 (11:14→21:01)
[2020-08-22] MEDS: LINEZOLID 600 MG IVPB 600 MG/300 ML BAG IV SCH ×2 (11:14→20:57)
[2020-08-22] MEDS ORDERED: TRAMADOL HCL 50 MG TAB PO PRN (11:16)
[2020-08-22] MEDS: HYDROCODONE/APAP 7.5/325 MG TAB PO PRN ×2 (11:36→21:00)
[2020-08-22] MEDS: PREGABALIN 150 MG CAP PO SCH ×2 (13:19→16:07)
[2020-08-22] MEDS: IPRATROPIUM BROM 0.5MG/2.5ML NEB PRN (13:47)
[2020-08-22] MEDS: ALBUTEROL 2.5 MG/3 ML NEB SOL NEB SCH ×2 (13:47→20:50)
[2020-08-22] MEDS: DIPHENHYDRAMINE 50 MG/ML VIAL IV PRN ×2 (15:58→21:02)
[2020-08-22] MEDS ORDERED: FAMOTIDINE 20 MG/2 ML VIAL IV ONE (16:00)
[2020-08-22] MEDS: ARFORMOTEROL TARTRATE 15 MCG/2 ML VIAL.NEB NEB SCH (20:50)
[2020-08-22] MEDS: DOXAZOSIN 2 MG TAB PO SCH (20:54)
[2020-08-22] MEDS: INSULIN GLARGINE 100 UNITS/ML SQ SCH (20:58)
[2020-08-22] MEDS: FAMOTIDINE 20 MG/2 ML VIAL IV SCH (21:00)
[2020-08-22] MEDS: ROPINIROLE HCL 0.25 MG TAB PO SCH (21:00)
[2020-08-22] MEDS: TOPIRAMATE 50 MG PO SCH (21:00)
[2020-08-22] MEDS ORDERED: DOXAZOSIN 1 MG TAB PO SCH (21:00)
[2020-08-23] MEDS: ALBUTEROL 2.5 MG/3 ML NEB SOL NEB SCH ×4 (02:10→20:30)
[2020-08-23 05:47] LABS: Absolute Lymphocytes (CBC) 0.7 K/uL (0.7-4.9); Basophils % 0.6 % (0-1.3); Hematocrit 27.8 % (36.0-45.0); Lymphocytes % 8.1 % (15.3-44.8); MPV 9.2 fL (7.6-11.3); RBC Red Blood Cell Count 3.16 M/uL (3.86-4.86)
--- NOTE | 2020-08-23 05:53 | P.PN ---
Subjective Date of Service: 08/23/20 Primary Care Provider: Dr. Mireles Chief Complaint: Panniculitis Subjective: Improving (Pain is better with antibiotics. She was in [facility] in July with similar infection. Failed outpatient oral antibiotics.) Physical Examination - Vital Signs Temperature: 97.6 F Blood Pressure: 113/52 Pulse: 87 Respirations: 19 Pulse Ox (%): 98 - Studies Microbiology Data (last 24 hrs): 08/22/20 02:05 Blood - Blood Anaerobic Blood Culture - Final 08/22/20 01:30 Wound - Abdomen Gram Stain - Final Assessment & Plan Discharge Plan: LTAC (LTAC versus high-level skilled facility) Plan to discharge in: 48 Hours Physician Review Additional Text: CXR: COMPARISON: June 2020 FINDINGS: The lungs appear clear of acute infiltrate. The heart is normal size IMPRESSION: No acute abnormalities displayed CT Scan: final result pending Physical exam: General: Alert, In no apparent distress, Oriented x3, Obese HEENT: Atraumatic, PERRLA, Mucous membr. moist/pink, EOMI, Sclerae nonicteric Neck: Supple, 2+ carotid pulse no bruit, No LAD, Without JVD or thyroid abno rmality Respiratory: Clear to auscultation bilaterally, Normal air movement Cardiovascular: Regular rate/rhythm, Normal S1 S2 Gastrointestinal: Normal bowel sounds, No tenderness, Other (Morbidly obese with very large pannus) Musculoskeletal: No tenderness Integumentary: Tenderness/swelling, Erythema, Warmth, Other (Multiple ulcerations to very large abdominal pannus with serosanguineous drainage) Neurological: Normal speech, Normal strength at 5/5 x4 extr, Normal tone, Normal affect Impression: Recurrent Panniculitis complicated with morbid obesity and very large pannus with multiple ulcerations Diabetes mellitus type 2 Hypertension Hypothyroidism Restless leg syndrome Obstructive sleep apnea COPD History of DVT on chronic anticoagulation therapy Chronic venous insufficiency Chronic migraine headaches Chronic diastolic CHF Diabetic neuropathy with chronic pain Morbid obesity, BMI 83 Plan Recurrent Panniculitis complicated with morbid obesity and very large pannus with multiple ulcerations: Patient stable at this time. Continue IV antibiotic therapyZyvox 600 mg twice daily IV and cefepime 1000 mg twice daily IV. Antibiotic choice was recommended by plastic surgery and infectious disease on her last hospitalization. Continue to monitor the lab closely. Continue with Aldactone 25 mg daily for diuresis. Home medications have been restarted. Will have wound care evaluate and assess and treat. Infectious disease consulted for recommendations. Patient was previously evaluated by infectious disease and bariatric surgery at [facility] in [place]. They did not recommend bariatric surgery at that time until her infection cleared and the patient significantly lost weight. The patient would also have to get approval from the insurance company. This has not been accomplished since her last hospitalization. Continue treatment plan. Will recommend long-term acute care facility placement with continued IV antibiotic therapy, aggressive wound care, and possibly hyperbarics. heating worker consulted to help in this process. Wait recommendations by infectious disease. Will continue to monitor the patient closely. Diabetes mellitus type 2: Hemoglobin A1c 7.9. Continue Accu-Cheks. Patient takes Tresiba at home. Continue Lantus. Will monitor and adjust appropriately. Hypertension: Continue blood pressure medicationNorvasc 10 mg daily, Cardura 1 mg daily, metoprolol XL 50 mg daily and losartan 100 mg daily. Parameters in p lace. Will adjust accordingly. Hypothyroidism: Continue levothyroxine 200 mcg daily Restless leg syndrome: Continue Requip 0.25 mg daily Obstructive sleep apnea: Provide with CPAP at night. COPD : Continue with COPD treatment. Patient takes Breo at home. Continue with Brovana, albuterol and Atrovent in the hospital. History of DVT on chronic anticoagulation therapy: Continue medications including Eliquis 5 mg 1 pill twice daily. Venous insufficiency: Continue with Trental 400 mg daily Chronic migraine headaches: Continue with Topamax twice daily Chronic diastolic CHF: Continue with Aldactone. Consider Lasix if with increasing edema. Monitor weight closely. Monitor input output closely. Continue 1500 cc/day fluid restriction. Diabetic neuropathy with chronic pain: Continue Lyrica 150 mg 1 pill 3 times a day Morbid obesity, BMI 83: Continue lifestyle modification education. As recommended above bariatric surgery recommends that the patient lose a significant amount of weight before bariatric surgery is to be considered. DVT prophylaxis: Eliquis CODE STATUS: Full code Advance care [id number] minutes: Will pursue long-term acute care facility placement for continued IV antibiotic treatment, wound care and possible hyperbarics. Time Spent Managing Pts Care (In Minutes): 55
[2020-08-23 06:09] LABS: Albumin 2.6 g/dL (3.4-5.0); Bilirubin Total 0.5 mg/dL (0.2-1.0); Magnesium 2.1 mg/dL (1.8-2.4); Potassium 3.8 mmol/L (3.5-5.1); Thyroid Stimulating Hormone 3.46 uIU/mL (0.360-3.740)
[2020-08-23] MEDS: LEVOTHYROXINE SOD 0.1 MG TAB PO SCH (06:29)
[2020-08-23 07:21] LABS: Platelet Estimate ADEQ
[2020-08-23 07:22] LABS: Anisocytosis 1+; Blood Morphology Comment NOTED (NOT SEEN); Polychromasia 1+
[2020-08-23] MEDS: LINEZOLID 600 MG IVPB 600 MG/300 ML BAG IV SCH (08:05)
[2020-08-23] MEDS: PENTOXIFYLLINE ER 400 MG TAB PO SCH (08:07)
[2020-08-23] MEDS: LOSARTAN POTASSIUM 50 MG TABLET PO SCH (08:07)
[2020-08-23] MEDS: APIXABAN 5 MG TABLET PO SCH ×2 (08:08→22:06)
[2020-08-23] MEDS: FAMOTIDINE 20 MG/2 ML VIAL IV SCH ×2 (08:08→22:07)
[2020-08-23] MEDS: CEFEPIME/SWI 1gm 10 ML IVP SCH ×2 (08:08→21:00)
[2020-08-23] MEDS: AMLODIPINE 10 MG TAB PO SCH (08:08)
[2020-08-23] MEDS: SPIRONOLACTONE 25 MG TABLET PO SCH (08:08)
[2020-08-23] MEDS: INSULIN -REGULAR HUMAN 50 UNIT/0.5 ML ML SQ SCH ×4 (08:09→22:22)
[2020-08-23] MEDS: INSULIN GLARGINE 100 UNITS/ML SQ SCH ×2 (08:10→22:22)
[2020-08-23] MEDS: TOPIRAMATE 50 MG PO SCH ×2 (08:11→21:00)
[2020-08-23] MEDS: PREGABALIN 150 MG CAP PO SCH ×4 (08:13→22:09)
[2020-08-23] MEDS: METOPROLOL XL 50 MG TAB PO SCH (08:13)
[2020-08-23] MEDS: ARFORMOTEROL TARTRATE 15 MCG/2 ML VIAL.NEB NEB SCH ×2 (08:17→20:30)
[2020-08-23] MEDS ORDERED: HOME MED 1 EA UNK (Levothyroxine Sodium [Synthroid] 200 MCG Tablet) PO SCH (09:00)
[2020-08-23] MEDS ORDERED: HOME MED 1 EA UNK (Losartan Potassium [Cozaar] 100 MG Tablet) PO SCH (09:00)
[2020-08-23] MEDS ORDERED: POTASSIUM CL SA 10 MEQ TAB PO ONE (09:00)
--- NOTE | 2020-08-23 11:09 | P.CNS ---
Date of Consult: 08/23/20 Primary Care Provider: Dr. Mireles Chief Complaint: Panniculitis History of Present Illness: Patient is a 65-year-old female with a past medical history of morbid obesity, diabetes mellitus type 2, hypertension, hypothyroidism, hyperlipidemia, obstructive sleep apnea and, history of DVT on chronic anticoagulation, and recurrent panniculitis who presents to the emergency department due to her abdominal swelling/pain/ulcer formation. Patient was seen at this facility last month due to Paniculitis, patient was placed on clindamycin and cefepime for 2 weeks. Patient was then transferred to [facility] for a surgery consultation for a panniculectomy. Due to patient's recurrent panniculitis and morbid obesity she is unable to have surgery at this time. At that facility she is placed on zyvox and cefepime. Patient was discharge on oral zyvox however insurance did not approve it and patient did not take medication. Patient currently denies nausea, vomiting, shortness breath, chest pain. Patient reports abdominal pain and tenderness. Allergies dapagliflozin [From Farxiga] Allergy (Verified 07/12/20:) dry mouth, stomach cramps latex Allergy (Verified 07/12/20 01:31) Hives/Rash levofloxacin Allergy (Verified 07/12/20:) Hives/Rash morphine Allergy (Verified 07/12/20:31) Hallucination Penicillins Allergy (Verified 07/12/20:31) Shortness of breath sitagliptin [From Januvia] Allergy (Verified 07/12/20:31) Shortness of breath vancomycin Allergy (Verified 07/12/20:31) Nausea/Vomiting ciprofloxacin Adverse Reaction (Verified 07/12/20:31) Anaphylaxis clarithromycin Adverse Reaction (Verified 07/12/20:31) Shortness of breath Home Medications: Amlodipine Besylate 10 mg PO DAILY 05/18/20 Doxazosin [Cardura*] 1 mg PO BEDTIME 05/18/20 Furosemide [Lasix*] 20 mg PO DAILYPRN PRN 05/18/20 Insulin Aspart [Novolog Flexpen] 15 units SQ TID 05/18/20 Insulin Degludec [Tresiba Flextouch U-100] 60 units SQ BID 05/18/20 Levothyroxine Sodium [Synthroid] 200 mcg PO DAILY 05/18/20 Losartan Potassium [Cozaar] 100 mg PO DAILY 05/18/20 Metoprolol Succinate [Toprol Xl*] 50 mg PO DAILY 05/18/20 Milnacipran HCl [Savella] 100 mg PO BID 05/18/20 Pentoxifylline 400 mg PO DAILY 05/18/20 Potassium Oral Tab [Klor-Con 10 mEq Tab*] 20 meq PO DAILY 05/18/20 Pregabalin [Lyrica] 200 mg PO TID* 05/18/20 Spironolactone [Aldactone*] 25 mg PO DAILY 05/18/20 Topiramate [Topiramate ER] 1 tab PO BID 05/18/20 Vit D3/Vit K2/Calc Frutoborate [Move Free Zztuq-Rlyswk-G3-D3] 2,000 iu PO DAILY 05/18/20 Fluticasone/Vilanterol [Breo Ellipta 200-25 Mcg INH] 1 puff IH DAILY 07/12/20 Phentermine HCl 1 tab PO DAILY 07/12/20 Apixaban [Eliquis] 5 mg PO BID #60 tablet 07/22/20 Dulaglutide [Trulicity] 0.75 mg SQ EVERY 7TH DAY 08/22/20 - Past Medical/Surgical History Diabetic: Yes -: DM -: HTN -: Hypothyroidism -: Morbid obesity -: Gerd -: Fibromyalgia -: Depression -: COPD -: dyslipidemia -: DVT -: OBSTRUCTIVE sleep apnea -: VITILIGO; CHRONIC MIGRAINES; DM NEUROPATHY -: R Heel spur repair -: Tubal ligation Psychosocial/ Personal History: She is and lives at home. She has 3 children - Family History Father Medical History: Heart disease, Hypertension, Diabetes, Stroke Notes: STELLA'S DISEASE. Mother Medical History: Heart disease, Cancer Notes: MYASTHENIA GRAVIS. breast ca. still living - Social History Smoking Status: Never smoker Alcohol use: No CD- Drugs: No Caffeine use: Yes Place of Residence: Home Review of Systems 10-point ROS is otherwise unremarkable Physical Examination Temp Pulse Resp BP Pulse Ox 97.6 F 87 19 113/52 L 98 08/23/20 09:38 08/23/20 09:38 08/23/20 09:38 08/23/20 09:38 08/23/20 09:38 General: Alert, Obese HEENT: Atraumatic, Normocephalic Neck: Supple, 2+ carotid pulse no bruit Respiratory: Diminished, Other (on oxygen ) Cardiovascular: No edema, Normal S1 S2 Capillary refill: <2 Seconds Gastrointestinal: Other (Diffuse abdominal tenderness and distention. Abdominal wall inflammation with multiple ulcerations draining serous fluid.) Laboratory Last Values WBC 10.00 K/uL (4.3-10.9) 08/22/20 01:54 RBC 3.99 M/uL (3.86-4.86) 08/22/20 01:54 Hgb 11.0 g/dL (12.0-15.0) L 08/22/20 01:54 Hct 35.3 % (36.0-45.0) L 08/22/20 01:54 MCV 88.5 fL (80-100) 08/22/20 01:54 MCH 27.6 pg (27.0-35.0) 08/22/20 01:54 MCHC 31.2 g/dL (32.0-36.0) L 08/22/20 01:54 RDW 16.7 % (12.1-15.2) H 08/22/20 01:54 Plt Count 191 K/uL (152-406) 08/22/20 01:54 MPV 9.4 fL (7.6-11.3) 08/22/20 01:54 Neutrophils % 81.8 % (41.7-73.7) H 08/22/20 01:54 Lymphocytes % 8.7 % (15.3-44.8) L 08/22/20 01:54 Monocytes % 5.9 % (3.3-12.3) 08/22/20 01:54 Eosinophils % 3.3 % (0-4.4) 08/22/20 01:54 Basophils % 0.3 % (0-1.3) 08/22/20 01:54 Absolute Neutrophils 8.2 K/uL (1.8-8.0) H 08/22/20 01:54 Absolute Lymphocytes 0.9 K/uL (0.7-4.9) 08/22/20 01:54 Absolute Monocytes 0.6 K/uL (0.1-1.3) 08/22/20 01:54 Absolute Eosinophils 0.3 K/uL (0-0.5) 08/22/20 01:54 Absolute Basophils 0.0 K/uL (0-0.5) 08/22/20 01:54 PT 12.2 SECONDS (9.5-12.5) 08/22/20 01:54 INR 1.06 08/22/20 01:54 APTT 28.9 SECONDS (24.3-36.9) 08/22/20 01:54 Sodium 143 mmol/L (136-145) 08/22/20 01:54 Potassium 4.4 mmol/L (3.5-5.1) 08/22/20 01:54 Chloride 111 mmol/L (98-107) H 08/22/20 01:54 Carbon Dioxide 25 mmol/L (21-32) 08/22/20 01:54 BUN 27 mg/dL (7-18) H 08/22/20 01:54 Creatinine 1.04 mg/dL (0.55-1.3) 08/22/20 01:54 Estimated GFR 53 mL/min (=/>90) L 08/22/20 01:54 Glucose 195 mg/dL (74-106) H 08/22/20 01:54 Lactic Acid 1.3 mmol/L (0.4-2.0) 08/22/20 01:54 Calcium 8.4 mg/dL (8.5-10.1) L 08/22/20 01:54 Total Bilirubin 0.3 mg/dL (0.2-1.0) 08/22/20 01:54 Direct Bilirubin < 0.1 mg/dL (0-0.2) 08/22/20 01:54 AST 12 U/L (15-37) L 08/22/20 01:54 ALT 35 U/L (12-78) 08/22/20 01:54 Alkaline Phosphatase 91 U/L (45-117) 08/22/20 01:54 Creatine Kinase 56 U/L (26-192) 08/22/20 01:54 CK-MB (CK-2) < 1.0 ng/mL (1.0-3.6) L 08/22/20 01:54 Rapid Troponin I < 0.02 ng/mL (0.0-0.045) 08/22/20 01:54 Serum Total Protein 7.7 g/dL (6.4-8.2) 08/22/20 01:54 Albumin 3.1 g/dL (3.4-5.0) L 08/22/20 01:54 Globulin 4.6 g/dL (2.3-3.5) H 08/22/20 01:54 Albumin/Globulin Ratio 0.7 (1.1-1.8) L 08/22/20 01:54 Amylase 40 U/L (25-115) 08/22/20 01:54 Lipase 72 U/L (73-393) L 08/22/20 01:54 Procalcitonin < 0.05 ng/mL (<0.050) 08/22/20 01:54 Urine RBC Cancelled 08/22/20 01:07 Urine WBC Cancelled 08/22/20 01:07 Ur Squamous Epith Cells Cancelled 08/22/20 01:07 Ur Urothelial Cells Cancelled 08/22/20 01:07 Calcium Oxalate Crystal Cancelled 08/22/20 01:07 Uric Acid Crystals Cancelled 08/22/20 01:07 Triple Phos Crystals Cancelled 08/22/20 01:07 Other Crystals Cancelled 08/22/20 01:07 Amorphous Sediment Cancelled 08/22/20 01:07 Glitter Cells Cancelled 08/22/20 01:07 Urine Bacteria Cancelled 08/22/20 01:07 Hyaline Casts Cancelled 08/22/20 01:07 Fine Granular Casts Cancelled 08/22/20 01:07 Coarse Granular Casts Cancelled 08/22/20 01:07 Waxy Casts Cancelled 08/22/20 01:07 RBC Casts Cancelled 08/22/20 01:07 WBC Casts Cancelled 08/22/20 01:07 Urine Mucus Cancelled 08/22/20 01:07 Urine Other Cancelled 08/22/20 01:07 Urine Trichomonas Cancelled 08/22/20 01:07 Urine Yeast Cancelled 08/22/20 01:07 Ur Yeast w Hyphae Cancelled 08/22/20 01:07 Urine Yeast (Budding) Cancelled 08/22/20 01:07 Urine Sperm Cancelled 08/22/20 01:07 Urine Culture Reflexed Cancelled 08/22/20 01:07 Urine Total Volume Cancelled 08/22/20 01:07 SARS-CoV-2 RNA (RT-PCR) Negative (NEGATIVE) 08/22/20 01:49 Conclusions/Impression: Antibiotics: zyvox Start: 08/22 stop: -- Cefepime Start: 08/22 stop: -- Assessment: -recurrent paniculitis -morbid obesity -hypothyroidism -anemia -renal insufficiency -obstructive sleep apnea -hypertension -hyperlipidemia -protein caloric malnutrition moderate Plan: -continue current IV antibiotics. Continue wound care recommendations per wound care team. Recommend LTAC placements, consults to licensed social worker place. Blood cultures: No growth to date. -strict glucose monitoring for proper wound healing. Patient was recent hemoglobin A1c is 7.9, down trending. Last hospital stay hemoglobin A1c was 8.5. -protein caloric malnutrition: Recommend supplemental Ensure protein drinks with meals. -medical management per primary team -continue monitor CBC and BMP -continue monitor for signs infection Plan of care discussed with Dr. Casey Thank you for consultation
--- NOTE | 2020-08-23 11:56 | RAD REPORT ---
EXAM DESCRIPTION: CT - Abdomen Pelvis W Contrast - 08/22/2020 4:16 am CLINICAL HISTORY: ABD PAIN COMPARISON: 07/11/2020 TECHNIQUE: CT of the abdomen and pelvis performed following IV administration of iodinated contras t. This exam was performed according to our departmental dose-optimization program, which includes au tomated exposure control, adjustment of the mA and/or kV according to patient size and/or use of iter ative reconstruction technique. Quantum mottle artifact due to body habitus. FINDINGS: Lung Bases: The visualized lung bases are clear. Bones: Multilevel endplate spondylosis. Abdomen: Liver: The liver has normal size and density. No intrahepatic biliary dilatation. Gallbladder: Calcified gallstones. Spleen, Pancreas, and Adrenal Glands: The spleen, pancreas, and adrenal glands are unremarkable. Kidneys: No hydronephrosis or obstructing calculus. Vasculature: Aortoiliac atherosclerosis. IVC is unremarkable. The portal vein is patent. The proxim al visceral and renal arteries are patent. Stomach: The stomach and duodenum have normal course. Other: No free intraperitoneal air. No free fluid or lymphadenopathy. Mild fat stranding in the a nterior abdominal wall subcutaneous soft tissues. No well-circumscribed fluid collection. Pelvis: Bladder: Urinary bladder is unremarkable. Bowel: No dilated loops of large or small bowel. Appendix: The appendix is not well individually identified. The structure thought to represent the appendix in the right lower abdomen has normal caliber. Pelvis: Uterus is not enlarged. IMPRESSION: 1. Cholelithiasis without other CT evidence of acute cholecystitis. 2. Mild fat stranding in the anterior abdominal wall subcutaneous soft tissues. This could be seen with cellulitis. No well-circumscribed fluid collection. Electronically signed by: René Betancur 08/22/2020 5:49 AM CDT Due to temporary technical issues with the PACS/Fluency reporting system, reports are being signed by the in house radiologist without review as a courtesy to ensure prompt reporting. The interpreting r adiologist is fully responsible for the content of the report.
[2020-08-23] MEDS ORDERED: VANCOMYCIN 2 GM in NA CHLORIDE 0.9% 500 ML IVPB SCH (14:00)
[2020-08-23] MEDS: ONDANSETRON 4 MG/2 ML VIAL IV PRN ×2 (15:39→22:09)
[2020-08-23] MEDS ORDERED: FAMOTIDINE 20 MG/2 ML VIAL IV ONE (16:00)
--- NOTE | 2020-08-23 16:10 | EKG ---
Test Date: 2020-08-22 Test Time: 02:20:57 Photo Tech: WAYNE MEASUREMENT RESULTS: Intervals: Rate: 78 VA: 154 QRSD: 78 QT: 398 QTc: 453 [place]: P: 49 VA: 154 QRS: 4 T: 47 INTERPRETIVE STATEMENTS: Normal sinus rhythm Normal ECG Compared to ECG 07/11/2020 20:08:52 No significant changes Electronically Signed On 08-23-20 16:04:37 CDT by Edilberto Hernandez
[2020-08-23] MEDS: ROPINIROLE HCL 0.25 MG TAB PO SCH (21:00)
[2020-08-23] MEDS: DOXAZOSIN 2 MG TAB PO SCH (21:00)
[2020-08-23] MEDS: HYDROCODONE/APAP 7.5/325 MG TAB PO PRN (22:06)
[2020-08-23] MEDS: DIPHENHYDRAMINE 50 MG/ML VIAL IV PRN (22:07)
[2020-08-24] MEDS: ALBUTEROL 2.5 MG/3 ML NEB SOL NEB SCH ×4 (02:00→19:35)
[2020-08-24 05:27] LABS: Absolute Lymphocytes (CBC) 0.5 K/uL (0.7-4.9); Basophils % 0.6 % (0-1.3); Hematocrit 26.7 % (36.0-45.0); Lymphocytes % 5.8 % (15.3-44.8); MPV 8.7 fL (7.6-11.3); RBC Red Blood Cell Count 3.02 M/uL (3.86-4.86)
[2020-08-24] MEDS: LEVOTHYROXINE SOD 0.1 MG TAB PO SCH (05:54)
[2020-08-24 06:07] LABS: Albumin 2.5 g/dL (3.4-5.0); Bilirubin Total 0.6 mg/dL (0.2-1.0); Magnesium 1.9 mg/dL (1.8-2.4); Potassium 4.7 mmol/L (3.5-5.1); Protein, Total 5.7 g/dL (6.4-8.2)
--- NOTE | 2020-08-24 06:13 | P.PN ---
Subjective Date of Service: 08/24/20 Primary Care Provider: Dr. Mireles Chief Complaint: Panniculitis Subjective: Other (Vancomycin infusion was causing some chills, bone achiness. It was held yesterday. She also spoke to the bariatric surgeon yesterday. She needs to lose another 30 pounds. SHe needs to be below around 425 pounds) Physical Examination - Vital Signs Temperature: 97.6 F Blood Pressure: 112/55 Pulse: 75 Respirations: 17 Pulse Ox (%): 99 - Studies Microbiology Data (last 24 hrs): 08/22/20 01:30 Wound - Abdomen Gram Stain - Final 08/22/20 02:05 Blood - Blood Anaerobic Blood Culture - Final Assessment & Plan Discharge Plan: LTAC Plan to discharge in: Greater than 2 days Physician Review Additional Text: CXR: COMPARISON: June 2020 FINDINGS: The lungs appear clear of acute infiltrate. The heart is normal size IMPRESSION: No acute abnormalities displayed CT Scan: final result pending Physical exam: General: Alert, In no apparent distress, Oriented x3, Obese HEENT: Atraumatic, PERRLA, Mucous membr. moist/pink, EOMI, Sclerae nonicteric Neck: Supple, 2+ carotid pulse no bruit, No LAD, Without JVD or thyroid abnormality Respiratory: Clear to auscultation bilaterally, Normal air movement Cardiovascular: Regular rate/rhythm, Normal S1 S2 Gastrointestinal: Normal bowel sounds, No tenderness, Other (Morbidly obese with very large pannus) Musculoskeletal: No tenderness Integumentary: Tenderness/swelling, Erythema, Warmth, Other (Multiple ulcerations to very large abdominal pannus with serosanguineous drainage) Neurological: Normal speech, Normal strength at 5/5 x4 extr, Normal tone, Normal affect Impression: Recurrent Panniculitis complicated with morbid obesity and very large pannus with multiple ulcerations wound culture positive for Klebsiella oxytoca Diabetes mellitus type 2 Hypertension Hypothyroidism Restless leg syndrome Obstructive sleep apnea COPD History of DVT on chronic anticoagulation therapy Chronic venous insufficiency Chronic migraine headaches Chronic diastolic CHF Diabetic neuropathy with chronic pain Morbid obesity, BMI 83 Plan Recurrent Panniculitis complicated with morbid obesity and very large pannus with multiple ulcerations wound culture positive for Klebsiella oxytoca: Patient had been on vancomycin. This was discontinued due to side effect of chills. Infectious disease has adjusted medication. Will culture positive for Klebsiell a oxytoca. Patient now back on IV Zyvox. Continue with Zyvox 600 mg twice daily IV and cefepime 1000 mg twice daily IV. Renal function slightly compromised today. Will restart IV fluids. Will consult nephrology for further recommendation. Continue with current medications. Bariatric surgery still recommends that the patient continue to lose more weight. She reports talking to her bariatric physician yesterday. Patient needs to lose about 30-50 more pounds. We will have dietary help with this process. Patient being evaluated for long-term acute care facility to continue IV antibiotic therapy long-term, aggressive wound care, and possible hyperbarics. Also due to her morbid obesity needs and specialty care patient, long-term acute care facility would better support her needs. I will turn the service over to the hospitalist team tomorrow. I will go plan of care with him. Thalia on chronic renal disease stage III: Will start IV fluids. Vancomycin has been discontinued. Will consult nephrology for further recommendation. Will monitor renal function closely. Diabetes mellitus type 2: Hemoglobin A1c 7.9. Continue Accu-Cheks. Patient takes Tresiba at home. Continue Lantus. Will monitor and adjust appropriately. Hypertension: Continue blood pressure medicationNorvasc 10 mg daily, Cardura 1 mg daily, metoprolol XL 50 mg daily and losartan 100 mg daily[address] Parameters in place. Will adjust accordingly. Hypothyroidism: Continue levothyroxine 200 mcg daily Restless leg syndrome: Continue Requip 0.25 mg daily Obstructive sleep apnea: Provide with CPAP at night. COPD : Continue with COPD treatment. Patient takes Breo at home. Continue with Brovana, albuterol and Atrovent in the hospital. History of DVT on chronic anticoagulation therapy: Continue medications including Eliquis 5 mg 1 pill twice daily. Venous insufficiency: Continue with Trental 400 mg daily Chronic migraine headaches: Continue with Topamax twice daily Chronic diastolic CHF: Continue with Aldactone. Hold off on Lasix at this time. Will start IV fluids due to renal insufficiency. Will hold after 1 L. Await recommendations by nephrology. Monitor weight closely. Monitor input output closely. Continue 1500 cc/day fluid restriction. Diabetic neuropathy with chronic pain: Continue Lyrica 150 mg 1 pill 3 times a day Morbid obesity, BMI 83: Continue lifestyle modification education. As recommended above bariatric surgery recommends that the patient lose about 30 more pounds. Continue with above plan of care. DVT prophylaxis: Eliquis CODE STATUS: Full code Advance care [id number] minutes: Will continue to pursue long-term acute care facility placement for continued IV antibiotic treatment, wound care and possible hyperbarics. Time Spent Managing Pts Care (In Minutes): 55
[2020-08-24] MEDS: TOPIRAMATE 50 MG PO SCH ×2 (07:26→20:21)
[2020-08-24] MEDS: LOSARTAN POTASSIUM 50 MG TABLET PO SCH (09:18)
[2020-08-24] MEDS: AMLODIPINE 10 MG TAB PO SCH (09:18)
[2020-08-24] MEDS: SPIRONOLACTONE 25 MG TABLET PO SCH (09:18)
[2020-08-24] MEDS: CEFEPIME/SWI 1gm 10 ML IVP SCH ×2 (09:18→20:18)
[2020-08-24] MEDS: PENTOXIFYLLINE ER 400 MG TAB PO SCH (09:18)
[2020-08-24] MEDS: FAMOTIDINE 20 MG/2 ML VIAL IV SCH ×2 (09:19→20:24)
[2020-08-24] MEDS: APIXABAN 5 MG TABLET PO SCH ×2 (09:19→20:22)
[2020-08-24] MEDS: METOPROLOL XL 50 MG TAB PO SCH (09:19)
[2020-08-24] MEDS: PREGABALIN 150 MG CAP PO SCH ×3 (09:19→16:16)
[2020-08-24] MEDS: INSULIN GLARGINE 100 UNITS/ML SQ SCH ×2 (09:20→20:22)
[2020-08-24] MEDS: INSULIN -REGULAR HUMAN 50 UNIT/0.5 ML ML SQ SCH ×4 (09:20→20:23)
[2020-08-24] MEDS: ARFORMOTEROL TARTRATE 15 MCG/2 ML VIAL.NEB NEB SCH ×2 (09:38→19:35)
[2020-08-24] MEDS ORDERED: NA CHLORIDE 0.9% 1,000 ML IV SCH (14:00)
--- NOTE | 2020-08-24 14:02 | P.PN ---
Subjective Date of Service: 08/24/20 Primary Care Provider: Dr. Mireles Chief Complaint: Panniculitis Patient seen examined at bedside, patient upset about issues regarding physical therapy. Zyxov was stopped overnight per nursing staff patient had adverse reaction. I spoke with patient who denied any adverse reaction, we recommend continuing the zyvox Awaiting insurance approval for [place] transfer Review of Systems 10-point ROS is otherwise unremarkable Physical Examination - Vital Signs Temperature: 97.6 F Blood Pressure: 112/55 Pulse: 75 Respirations: 17 Pulse Ox (%): 99 - Studies Laboratory Last Values WBC 10.00 K/uL (4.3-10.9) 08/22/20 01:54 RBC 3.99 M/uL (3.86-4.86) 08/22/20 01:54 Hgb 11.0 g/dL (12.0-15.0) L 08/22/20 01:54 Hct 35.3 % (36.0-45.0) L 08/22/20 01:54 MCV 88.5 fL (80-100) 08/22/20 01:54 MCH 27.6 pg (27.0-35.0) 08/22/20 01:54 MCHC 31.2 g/dL (32.0-36.0) L 08/22/20 01:54 RDW 16.7 % (12.1-15.2) H 08/22/20 01:54 Plt Count 191 K/uL (152-406) 08/22/20 01:54 MPV 9.4 fL (7.6-11.3) 08/22/20 01:54 Neutrophils % 81.8 % (41.7-73.7) H 08/22/20 01:54 Lymphocytes % 8.7 % (15.3-44.8) L 08/22/20 01:54 Monocytes % 5.9 % (3.3-12.3) 08/22/20 01:54 Eosinophils % 3.3 % (0-4.4) 08/22/20 01:54 Basophils % 0.3 % (0-1.3) 08/22/20 01:54 Absolute Neutrophils 8.2 K/uL (1.8-8.0) H 08/22/20 01:54 Absolute Lymphocytes 0.9 K/uL (0.7-4.9) 08/22/20 01:54 Absolute Monocytes 0.6 K/uL (0.1-1.3) 08/22/20 01:54 Absolute Eosinophils 0.3 K/uL (0-0.5) 08/22/20 01:54 Absolute Basophils 0.0 K/uL (0-0.5) 08/22/20 01:54 PT 12.2 SECONDS (9.5-12.5) 08/22/20 01:54 INR 1.06 08/22/20 01:54 APTT 28.9 SECONDS (24.3-36.9) 08/22/20 01:54 Sodium 143 mmol/L (136-145) 08/22/20 01:54 Potassium 4.4 mmol/L (3.5-5.1) 08/22/20 01:54 Chloride 111 mmol/L (98-107) H 08/22/20 01:54 Carbon Dioxide 25 mmol/L (21-32) 08/22/20 01:54 BUN 27 mg/dL (7-18) H 08/22/20 01:54 Creatinine 1.04 mg/dL (0.55-1.3) 08/22/20 01:54 Estimated GFR 53 mL/min (=/>90) L 08/22/20 01:54 Glucose 195 mg/dL (74-106) H 08/22/20 01:54 Lactic Acid 1.3 mmol/L (0.4-2.0) 08/22/20 01:54 Calcium 8.4 mg/dL (8.5-10.1) L 08/22/20 01:54 Total Bilirubin 0.3 mg/dL (0.2-1.0) 08/22/20 01:54 Direct Bilirubin < 0.1 mg/dL (0-0.2) 08/22/20 01:54 AST 12 U/L (15-37) L 08/22/20 01:54 ALT 35 U/L (12-78) 08/22/20 01:54 Alkaline Phosphatase 91 U/L (45-117) 08/22/20 01:54 Creatine Kinase 56 U/L (26-192) 08/22/20 01:54 CK-MB (CK-2) < 1.0 ng/mL (1.0-3.6) L 08/22/20 01:54 Rapid Troponin I < 0.02 ng/mL (0.0-0.045) 08/22/20 01:54 Serum Total Protein 7.7 g/dL (6.4-8.2) 08/22/20 01:54 Albumin 3.1 g/dL (3.4-5.0) L 08/22/20 01:54 Globulin 4.6 g/dL (2.3-3.5) H 08/22/20 01:54 Albumin/Globulin Ratio 0.7 (1.1-1.8) L 08/22/20 01:54 Amylase 40 U/L (25-115) 08/22/20 01:54 Lipase 72 U/L (73-393) L 08/22/20 01:54 Procalcitonin < 0.05 ng/mL (<0.050) 08/22/20 01:54 Urine RBC Cancelled 08/22/20 01:07 Urine WBC Cancelled 08/22/20 01:07 Ur Squamous Epith Cells Cancelled 08/22/20 01:07 Ur Urothelial Cells Cancelled 08/22/20 01:07 Calcium Oxalate Crystal Cancelled 08/22/20 01:07 Uric Acid Crystals Cancelled 08/22/20 01:07 Triple Phos Crystals Cancelled 08/22/20 01:07 Other Crystals Cancelled 08/22/20 01:07 Amorphous Sediment Cancelled 08/22/20 01:07 Glitter Cells Cancelled 08/22/20 01:07 Urine Bacteria Cancelled 08/22/20 01:07 Hyaline Casts Cancelled 08/22/20 01:07 Fine Granular Casts Cancelled 08/22/20 01:07 Coarse Granular Casts Cancelled 08/22/20 01:07 Waxy Casts Cancelled 08/22/20 01:07 RBC Casts Cancelled 08/22/20 01:07 WBC Casts Cancelled 08/22/20 01:07 Urine Mucus Cancelled 08/22/20 01:07 Urine Other Cancelled 08/22/20 01:07 Urine Trichomonas Cancelled 08/22/20 01:07 Urine Yeast Cancelled 08/22/20 01:07 Ur Yeast w Hyphae Cancelled 08/22/20 01:07 Urine Yeast (Budding) Cancelled 08/22/20 01:07 Urine Sperm Cancelled 08/22/20 01:07 Urine Culture Reflexed Cancelled 08/22/20 01:07 Urine Total Volume Cancelled 08/22/20 01:07 SARS-CoV-2 RNA (RT-PCR) Negative (NEGATIVE) 08/22/20 01:49 Microbiology Data (last 24 hrs): 08/22/20 01:30 Wound - Abdomen Gram Stain - Final Assessment And Plan - Plan Physical Exam: General: Alert, Obese HEENT: Atraumatic, Normocephalic Neck: Supple, 2+ carotid pulse no bruit Respiratory: Diminished, Other (on oxygen ) Cardiovascular: No edema, Normal S1 S2 Capillary refill: <2 Seconds Gastrointestinal: Other (Diffuse abdominal tenderness and distention. Abdominal wall inflammation with multiple ulcerations draining serous fluid.) Conclusions/Impression: Antibiotics: zyvox Start: 08/22 stop: -- Cefepime Start: 08/22 stop: -- Assessment: -recurrent paniculitis -morbid obesity -hypothyroidism -anemia -renal insufficiency -obstructive sleep apnea -hypertension -hyperlipidemia -protein caloric malnutrition moderate Plan: -continue current IV antibiotics. Continue wound care recommendations per wound care team. Recommend LTAC placements, consults to executive secretary social welfare [facility]. -wound culture: Growing Klebsiella, sensitive to cefepime. Blood cultures: No growth to date. -strict glucose monitoring for proper wound healing. Patient was recent hemoglobin A1c is 7.9, down trending. Last hospital stay hemoglobin A1c was 8.5. -protein caloric malnutrition: Recommend supplemental Ensure protein drinks with meals. -medical management per primary team -continue monitor CBC and BMP -continue monitor for signs infection Plan of care discussed with Dr. Casey Thank you for consultation Physician Review Additional Text: CXR: COMPARISON: June 2020 FINDINGS: The lungs appear clear of acute infiltrate. The heart is normal size IMPRESSION: No acute abnormalities displayed CT Scan: final result pending Physical exam: General: Alert, In no apparent distress, Oriented x3, Obese HEENT: Atraumatic, PERRLA, Mucous membr. moist/pink, EOMI, Sclerae nonicteric Neck: Supple, 2+ carotid pulse no bruit, No LAD, Without JVD or thyroid abnormality Respiratory: Clear to auscultation bilaterally, Normal air movement Cardiovascular: Regular rate/rhythm, Normal S1 S2 Gastrointestinal: Normal bowel sounds, No tenderness, Other (Morbidly obese with very large pannus) Musculoskeletal: No tenderness Integumentary: Tenderness/swelling, Erythema, Warmth, Other (Multiple ulcerations to very large abdominal pannus with serosanguineous drainage) Neurological: Normal speech, Normal strength at 5/5 x4 extr, Normal tone, Normal affect Impression: Recurrent Panniculitis complicated with morbid obesity and very large pannus with multiple ulcerations wound culture positive for Klebsiella oxytoca Diabetes mellitus type 2 Hypertension Hypothyroidism Restless leg syndrome Obstructive sleep apnea COPD History of DVT on chronic anticoagulation therapy Chronic venous insufficiency Chronic migraine headaches Chronic diastolic CHF Diabetic neuropathy with chronic pain Morbid obesity, BMI 83 Plan Recurrent Panniculitis complicated with morbid obesity and very large pannus with multiple ulcerations wound culture positive for Klebsiella oxytoca: Patient had been on vancomycin. This was discontinued due to side effect of chills. Infectious disease has adjusted medication. Will culture positive for Klebsiella oxytoca. Patient now back on IV Zyvox. Continue with Zyvox 600 mg twice daily IV and cefepime 1000 mg twice daily IV. Renal function slightly compromised today. Will restart IV fluids. Will consult nephrology for further recommendation. Continue with current medications. Bariatric surgery still recommends that the patient continue to lose more weight. She reports talking to her bariatric physician yesterday. Patient needs to lose about 30-50 more pounds. We will have dietary help with this process. Patient being evaluated for long-term acute care facility to continue IV antibiotic therapy long-term, aggressive wound care, and possible hyperbarics. Also due to her morbid obesity needs and specialty care patient, long-term acute care facility would better support her needs. I will turn the service over to the hospitalist team tomorrow. I will go plan of care with him. Thalia on chronic renal disease stage III: Will start IV fluids. Vancomycin has been discontinued. Will consult nephrology for further recommendation. Will monitor renal function closely. Diabetes mellitus type 2: Hemoglobin A1c 7.9. Continue Accu-Cheks. Patient takes Tresiba at home. Continue Lantus. Will monitor and adjust appropriately. Hypertension: Continue blood pressure medicationNorvasc 10 mg daily, Cardura 1 mg daily, metoprolol XL 50 mg daily and losartan 100 mg daily[address] Parameters in place. Will adjust accordingly. Hypothyroidism: Continue levothyroxine 200 mcg daily Restless leg syndrome: Continue Requip 0.25 mg daily Obstructive sleep apnea: Provide with CPAP at night. COPD : Continue with COPD treatment. Patient takes Breo at home. Continue with Brovana, albuterol and Atrovent in the hospital. History of DVT on chronic anticoagulation therapy: Continue medications including Eliquis 5 mg 1 pill twice daily. Venous insufficiency: Continue with Trental 400 mg daily Chronic migraine headaches: Continue with Topamax twice daily Chronic diastolic CHF: Continue with Aldactone. Hold off on Lasix at this time. Will start IV fluids due to renal insufficiency. Will hold after 1 L. Await recommendations by nephrology. Monitor weight closely. Monitor input output closely. Continue 1500 cc/day fluid restriction. Diabetic neuropathy with chronic pain: Continue Lyrica 150 mg 1 pill 3 times a day Morbid obesity, BMI 83: Continue lifestyle modification education. As recommended above bariatric surgery recommends that the patient lose about 30 more pounds. Continue with above plan of care. DVT prophylaxis: Hallie CODE STATUS: Full code Advance care [id number] minutes: Will continue to pursue long-term acute care facility placement for continued IV antibiotic treatment, wound care and possible hyperbarics.
[2020-08-24] MEDS: LINEZOLID 600 MG IVPB 600 MG/300 ML BAG IV SCH (17:31)
[2020-08-24] MEDS: DOXAZOSIN 2 MG TAB PO SCH (20:21)
[2020-08-24] MEDS: ROPINIROLE HCL 0.25 MG TAB PO SCH (20:21)
[2020-08-24] MEDS: ACETAMINOPHEN 500 MG TAB PO PRN (22:55)
[2020-08-25] MEDS: ALBUTEROL 2.5 MG/3 ML NEB SOL NEB SCH ×5 (01:25→20:00)
[2020-08-25] MEDS: LEVOTHYROXINE SOD 0.1 MG TAB PO SCH (05:19)
[2020-08-25] MEDS: LINEZOLID 600 MG IVPB 600 MG/300 ML BAG IV SCH ×2 (05:19→17:33)
[2020-08-25 06:15] LABS: Absolute Lymphocytes (CBC) 0.6 K/uL (0.7-4.9); Basophils % 0.3 % (0-1.3); Hematocrit 26.4 % (36.0-45.0); Lymphocytes % 9.2 % (15.3-44.8); MPV 8.7 fL (7.6-11.3); RBC Red Blood Cell Count 2.96 M/uL (3.86-4.86)
[2020-08-25 06:20] LABS: Potassium 4.6 mmol/L (3.5-5.1)
[2020-08-25] MEDS: ARFORMOTEROL TARTRATE 15 MCG/2 ML VIAL.NEB NEB SCH ×2 (07:40→19:55)
[2020-08-25] MEDS: METOPROLOL XL 50 MG TAB PO SCH (09:00)
[2020-08-25] MEDS: TOPIRAMATE 50 MG PO SCH ×2 (09:00→21:00)
[2020-08-25] MEDS: LOSARTAN POTASSIUM 50 MG TABLET PO SCH (09:00)
[2020-08-25] MEDS: SPIRONOLACTONE 25 MG TABLET PO SCH (09:00)
[2020-08-25] MEDS: AMLODIPINE 10 MG TAB PO SCH (09:00)
--- NOTE | 2020-08-25 09:07 | P.CNS ---
Date of Consult: 08/25/20 Reason for Consult: ZHANE Requesting Physician: Raffaele Oscar Primary Care Provider: Dr. Mireles Chief Complaint: Panniculitis History of Present Illness: 65-year-old female with morbid obesity, diabetes mellitus type 2, hypertension, hypothyroidism, hyperlipidemia, obstructive sleep apnea, history of DVT on chronic anticoagulation and recurrent pannus infection presents emergency department for abdominal swelling/rash. Patient was seen here in admitted on 07/11/2020 for panniculitis, patient had prolonged hospital stay and was eventually transferred to tertiary center for evaluation from bariatric surgery for possible urgent intervention. Patient reports that upon arrival she was evaluated by the bariatric seen an infectious disease, patient was placed on Zyvox for a few days common bariatric surgery did recommend intervention after clearance of infection, weight loss, insurance approval and patient was discharged home on antibiotics. Patient has not gained been approved by her in surance or lost any of the weight required for the procedure, patient reports increasing redness/swelling/drainage from abdomen over the course of the last week. 04:29 This 65 yrs old Female presents to ER via Wheelchair with complaints of Rash, mh7 Abdominal Pain, Headache. 04:29 The patient presents with cellulitis of the abdomen. Description: erythematous, warm. mh7 Onset: The symptoms/episode began/occurred 1 week(s) ago. Possible cause(s): unknown. 04:30 Associated signs and symptoms: Pertinent positives: drainage, erythema, headache, mh7 Pertinent negatives: discharge, foreign body sensation, fever, nausea, shortness of breath, swelling, vomiting. Modifying factors: the symptoms are alleviated by nothing, the symptoms are aggravated by nothing. Severity of symptoms: At their worst the symptoms were moderate, 5 day(s) ago, in the emergency department the symptoms are unchanged. The patient has experienced a previous episode, last month. Allergies dapagliflozin [From Farxiga] Allergy (Verified 07/12/20 01:31) dry mouth, stomach cramps latex Allergy (Verified 07/12/20 01:31) Hives/Rash levofloxacin Allergy (Verified 07/12/20:31) Hives/Rash morphine Allergy (Verified 07/12/20 01:31) Hallucination Penicillins Allergy (Verified 07/12/20:31) Shortness of breath sitagliptin [From Januvia] Allergy (Verified 07/12/20:) Shortness of breath vancomycin Allergy (Verified 07/12/20 01:31) Nausea/Vomiting ciprofloxacin Adverse Reaction (Verified 07/12/20 01:31) Anaphylaxis clarithromycin Adverse Reaction (Verified 07/12/20:) Shortness of breath Home medications list reviewed: Yes Home Medications: Amlodipine Besylate 10 mg PO DAILY 05/18/20 Doxazosin [Cardura*] 1 mg PO BEDTIME 05/18/20 Furosemide [Lasix*] 20 mg PO DAILYPRN PRN 05/18/20 Insulin Aspart [Novolog Flexpen] 15 units SQ TID 05/18/20 Insulin Degludec [Tresiba Flextouch U-100] 60 units SQ BID 05/18/20 Levothyroxine Sodium [Synthroid] 200 mcg PO DAILY 05/18/20 Losartan Potassium [Cozaar] 100 mg PO DAILY 05/18/20 Metoprolol Succinate [Toprol Xl*] 50 mg PO DAILY 05/18/20 Milnacipran HCl [Savella] 100 mg PO BID 05/18/20 Pentoxifylline 400 mg PO DAILY 05/18/20 Potassium Oral Tab [Klor-Con 10 mEq Tab*] 20 meq PO DAILY 05/18/20 Pregabalin [Lyrica] 200 mg PO TID* 05/18/20 Spironolactone [Aldactone*] 25 mg PO DAILY 05/18/20 Topiramate [Topiramate ER] 1 tab PO BID 05/18/20 Vit D3/Vit K2/Calc Frutoborate [Move Free [id number]] 2,000 iu PO DAILY 05/18/20 Fluticasone/Vilanterol [Breo Ellipta 200-25 Mcg INH] 1 puff IH DAILY 07/12/20 Phentermine HCl 1 tab PO DAILY 07/12/20 Apixaban [Eliquis] 5 mg PO BID #60 tablet 07/22/20 Dulaglutide [Trulicity] 0.75 mg SQ EVERY 7TH DAY 08/22/20 - Past Medical/Surgical History Diabetic: Yes -: DM -: HTN -: Hypothyroidism -: Morbid obesity -: Gerd -: Fibromyalgia -: Depression -: COPD -: dyslipidemia -: DVT -: OBSTRUCTIVE sleep apnea -: VITILIGO; CHRONIC MIGRAINES; DM NEUROPATHY -: R Heel spur repair -: Tubal ligation Psychosocial/ Personal History: She is and lives at home. She has 3 children - Family History Father Medical History: Heart disease, Hypertension, Diabetes, Stroke Notes: STELLA'S DISEASE. Mother Medical History: Heart disease, Cancer Notes: MYASTHENIA GRAVIS. breast ca. still living - Social History Smoking Status: Never smoker Alcohol use: No CD- Drugs: No Caffeine use: Yes Place of Residence: Home Review of Systems 10-point ROS is otherwise unremarkable General: Weakness, Malaise Cardiovascular: Edema Physical Examination Temp Pulse Resp BP Pulse Ox 97.4 F 78 16 107/53 L 98 08/25/20 07:35 08/25/20 07:35 08/25/20 07:35 08/25/20 07:35 08/25/20 07:35 General: In no apparent distress, Oriented x3, Cooperative HEENT: Atraumatic Neck: Supple Respiratory: Clear to auscultation bilaterally Cardiovascular: Regular rate/rhythm, Edema Gastrointestinal: Soft and benign, Non-distended Musculoskeletal: No clubbing, No contractures Integumentary: No rashes, No cyanosis Neurological: Normal speech Blood work reviewed in the chart. Imagings Data: EXAM DESCRIPTION: [facility] Single View08/22/2020 1:48 am CLINICAL HISTORY: Sepsis COMPARISON: June 2020 FINDINGS: The lungs appear clear of acute infiltrate. The heart is normal size IMPRESSION: No acute abnormalities displayed EXAM DESCRIPTION: CT - Abdomen Pelvis W Contrast - 08/22/2020 4:16 am CLINICAL HISTORY: ABD PAIN COMPARISON: 07/11/2020 TECHNIQUE: CT of the abdomen and pelvis performed following IV administration of iodinated contrast. This exam was performed according to our departmental dose-optimization program, which includes automated exposure control, adjustment of the mA and/or kV according to patient size and/or use of iterative reconstruction technique. Quantum mottle artifact due to body habitus. FINDINGS: Lung Bases: The visualized lung bases are clear. Bones: Multilevel endplate spondylosis. Abdomen: Liver: The liver has normal size and density. No intrahepatic biliary dilatation. Gallbladder: Calcified gallstones. Spleen, Pancreas, and Adrenal Glands: The spleen, pancreas, and adrenal glands are unremarkable. Kidneys: No hydronephrosis or obstructing calculus. Vasculature: Aortoiliac atherosclerosis. IVC is unremarkable. The portal vein is patent. The proximal visceral and renal arteries are patent. Stomach: The stomach and duodenum have normal course. Other: No free intraperitoneal air. No free fluid or lymphadenopathy. Mild fat stranding in the anterior abdominal wall subcutaneous soft tissues. No well- circumscribed fluid collection. Pelvis: Bladder: Urinary bladder is unremarkable. Bowel: No dilated loops of large or small bowel. Appendix: The appendix is not well individually identified. The structure thought to represent the appendix in the right lower abdomen has normal caliber. Pelvis: Uterus is not enlarged. IMPRESSION: 1. Cholelithiasis without other CT evidence of acute cholecystitis. 2. Mild fat stranding in the anterior abdominal wall subcutaneous soft tissue s. This could be seen with cellulitis. No well-circumscribed fluid collection. Conclusions/Impression: ZHANE likely contrast induced nephropathy (08-22-20) complicated by hypotension CKD III -No NSAIDs -Stop IVF. Consider diuretic therapy once the BP improves. -Discontinue Losartan and Amlodipine at this time due to hypotension -Discontinue spironolactone -Send urine studies Hypocalcemia -Start Vitamin D HTN with CKD complicated by hypotension -Continue Metoprolol and Doxazosin -Discontinue Amlodipine and Losartan at this time due to hypotension LE & Hip Edema -Stop IVF -Low sodium diet -Consider diuretic therapy once the BP improves DM II with CKD and Hyperglycemia -Increase Lantus 12 units BID -RISS Moderate malnutrition -Encourage nutrition as tolerated Anemia in chronic illness -Monitor H&H Atherosclerosis of the aorta PAD -Continue Trental Thank you kindly for the consultation. Case reviewed with Dr. Oscar
[2020-08-25] MEDS ORDERED: ACETYLCYST 6,000 MG/30 ML VIAL PO SCH (09:30)
[2020-08-25] MEDS: INSULIN -REGULAR HUMAN 50 UNIT/0.5 ML ML SQ SCH ×4 (09:59→22:22)
[2020-08-25] MEDS: INSULIN GLARGINE 100 UNITS/ML SQ SCH ×2 (10:02→22:21)
[2020-08-25] MEDS: PREGABALIN 150 MG CAP PO SCH ×3 (10:06→17:33)
[2020-08-25] MEDS: APIXABAN 5 MG TABLET PO SCH ×2 (10:07→22:21)
[2020-08-25] MEDS: PENTOXIFYLLINE ER 400 MG TAB PO SCH (10:08)
[2020-08-25] MEDS: FAMOTIDINE 20 MG/2 ML VIAL IV SCH ×2 (10:08→22:21)
[2020-08-25] MEDS: CEFEPIME/SWI 1gm 10 ML IVP SCH ×2 (10:09→22:23)
--- NOTE | 2020-08-25 11:01 | P.PN ---
Subjective Date of Service: 08/25/20 Primary Care Provider: Dr. Mireles Chief Complaint: Panniculitis Patient seen examined at bedside, no acute complaints. Creatinine increasing, recommend renal consultation. Review of Systems 10-point ROS is otherwise unremarkable Physical Examination - Vital Signs Temperature: 97.4 F Blood Pressure: 107/53 Pulse: 78 Respirations: 16 Pulse Ox (%): 98 - Studies Laboratory Last Values WBC 10.00 K/uL (4.3-10.9) 08/22/20 01:54 RBC 3.99 M/uL (3.86-4.86) 08/22/20 01:54 Hgb 11.0 g/dL (12.0-15.0) L 08/22/20 01:54 Hct 35.3 % (36.0-45.0) L 08/22/20 01:54 MCV 88.5 fL (80-100) 08/22/20 01:54 MCH 27.6 pg (27.0-35.0) 08/22/20 01:54 MCHC 31.2 g/dL (32.0-36.0) L 08/22/20 01:54 RDW 16.7 % (12.1-15.2) H 08/22/20 01:54 Plt Count 191 K/uL (152-406) 08/22/20 01:54 MPV 9.4 fL (7.6-11.3) 08/22/20 01:54 Neutrophils % 81.8 % (41.7-73.7) H 08/22/20 01:54 Lymphocytes % 8.7 % (15.3-44.8) L 08/22/20 01:54 Monocytes % 5.9 % (3.3-12.3) 08/22/20 01:54 Eosinophils % 3.3 % (0-4.4) 08/22/20 01:54 Basophils % 0.3 % (0-1.3) 08/22/20 01:54 Absolute Neutrophils 8.2 K/uL (1.8-8.0) H 08/22/20 01:54 Absolute Lymphocytes 0.9 K/uL (0.7-4.9) 08/22/20 01:54 Absolute Monocytes 0.6 K/uL (0.1-1.3) 08/22/20 01:54 Absolute Eosinophils 0.3 K/uL (0-0.5) 08/22/20 01:54 Absolute Basophils 0.0 K/uL (0-0.5) 08/22/20 01:54 PT 12.2 SECONDS (9.5-12.5) 08/22/20 01:54 INR 1.06 08/22/20 01:54 APTT 28.9 SECONDS (24.3-36.9) 08/22/20 01:54 Sodium 143 mmol/L (136-145) 08/22/20 01:54 Potassium 4.4 mmol/L (3.5-5.1) 08/22/20 01:54 Chloride 111 mmol/L (98-107) H 08/22/20 01:54 Carbon Dioxide 25 mmol/L (21-32) 08/22/20 01:54 BUN 27 mg/dL (7-18) H 08/22/20 01:54 Creatinine 1.04 mg/dL (0.55-1.3) 08/22/20 01:54 Estimated GFR 53 mL/min (=/>90) L 08/22/20 01:54 Glucose 195 mg/dL (74-106) H 08/22/20 01:54 Lactic Acid 1.3 mmol/L (0.4-2.0) 08/22/20 01:54 Calcium 8.4 mg/dL (8.5-10.1) L 08/22/20 01:54 Total Bilirubin 0.3 mg/dL (0.2-1.0) 08/22/20 01:54 Direct Bilirubin < 0.1 mg/dL (0-0.2) 08/22/20 01:54 AST 12 U/L (15-37) L 08/22/20 01:54 ALT 35 U/L (12-78) 08/22/20 01:54 Alkaline Phosphatase 91 U/L (45-117) 08/22/20 01:54 Creatine Kinase 56 U/L (26-192) 08/22/20 01:54 CK-MB (CK-2) < 1.0 ng/mL (1.0-3.6) L 08/22/20 01:54 Rapid Troponin I < 0.02 ng/mL (0.0-0.045) 08/22/20 01:54 Serum Total Protein 7.7 g/dL (6.4-8.2) 08/22/20 01:54 Albumin 3.1 g/dL (3.4-5.0) L 08/22/20 01:54 Globulin 4.6 g/dL (2.3-3.5) H 08/22/20 01:54 Albumin/Globulin Ratio 0.7 (1.1-1.8) L 08/22/20 01:54 Amylase 40 U/L (25-115) 08/22/20 01:54 Lipase 72 U/L (73-393) L 08/22/20 01:54 Procalcitonin < 0.05 ng/mL (<0.050) 08/22/20 01:54 Urine RBC Cancelled 08/22/20 01:07 Urine WBC Cancelled 08/22/20 01:07 Ur Squamous Epith Cells Cancelled 08/22/20 01:07 Ur Urothelial Cells Cancelled 08/22/20 01:07 Calcium Oxalate Crystal Cancelled 08/22/20 01:07 Uric Acid Crystals Cancelled 08/22/20 01:07 Triple Phos Crystals Cancelled 08/22/20 01:07 Other Crystals Cancelled 08/22/20 01:07 Amorphous Sediment Cancelled 08/22/20 01:07 Glitter Cells Cancelled 08/22/20 01:07 Urine Bacteria Cancelled 08/22/20 01:07 Hyaline Casts Cancelled 08/22/20 01:07 Fine Granular Casts Cancelled 08/22/20 01:07 Coarse Granular Casts Cancelled 08/22/20 01:07 Waxy Casts Cancelled 08/22/20 01:07 RBC Casts Cancelled 08/22/20 01:07 WBC Casts Cancelled 08/22/20 01:07 Urine Mucus Cancelled 08/22/20 01:07 Urine Other Cancelled 08/22/20 01:07 Urine Trichomonas Cancelled 08/22/20 01:07 Urine Yeast Cancelled 08/22/20 01:07 Ur Yeast w Hyphae Cancelled 08/22/20 01:07 Urine Yeast (Budding) Cancelled 08/22/20 01:07 Urine Sperm Cancelled 08/22/20 01:07 Urine Culture Reflexed Cancelled 08/22/20 01:07 Urine Total Volume Cancelled 08/22/20 01:07 SARS-CoV-2 RNA (RT-PCR) Negative (NEGATIVE) 08/22/20 01:49 Microbiology Data (last 24 hrs): 08/22/20 01:30 Wound - Abdomen Gram Stain - Final Assessment And Plan - Plan Physical Exam: General: Alert, Obese HEENT: Atraumatic, Normocephalic Neck: Supple, 2+ carotid pulse no bruit Respiratory: Diminished, Other (on oxygen ) Cardiovascular: No edema, Normal S1 S2 Capillary refill: <2 Seconds Gastrointestinal: Other (Diffuse abdominal tenderness and distention. Abdominal wall inflammation with multiple ulcerations draining serous fluid.) Conclusions/Impression: Antibiotics: zyvox Start: 08/22 stop: -- Cefepime Start: 08/22 stop: -- Assessment: -recurrent paniculitis -morbid obesity -hypothyroidism -anemia -renal insufficiency -obstructive sleep apnea -hypertension -hyperlipidemia -protein caloric malnutrition moderate Plan: -continue current IV antibiotics. Continue wound care recommendations per wound care team. Recommend LTAC placements, consults to social insurance administrator place. -wound culture: Growing Klebsiella, sensitive to cefepime. Blood cultures: No growth to date. -strict glucose monitoring for proper wound healing. Patient was recent hemoglobin A1c is 7.9, down trending. Last hospital stay hemoglobin A1c was 8.5. -protein caloric malnutrition: Recommend supplemental Ensure protein drinks with meals. -renal insufficiency: Creatinine up trending today 2.24. Recommend renal consultation. Continue to monitor closely, will adjust antibiotic doses as needed. -medical management per primary team -continue monitor CBC and BMP -continue monitor for signs infection Plan of care discussed with Dr. Casey Thank you for consultation
[2020-08-25] MEDS: ACETYLCYST 20% 800 MG/4 ML VIAL PO SCH ×2 (11:47→22:32)
[2020-08-25] MEDS: ACETAMINOPHEN 500 MG TAB PO PRN (11:47)
[2020-08-25] MEDS: ONDANSETRON 4 MG/2 ML VIAL IV PRN (13:11)
[2020-08-25] MEDS ORDERED: DOXAZOSIN 2 MG TAB PO SCH (13:51)
[2020-08-25 14:31] VITALS: BMI 83.0
[2020-08-25] MEDS: HYDROCODONE/APAP 7.5/325 MG TAB PO PRN (17:33)
[2020-08-25] MEDS: IPRATROPIUM BROM 0.5MG/2.5ML NEB PRN (19:55)
[2020-08-25] MEDS: ROPINIROLE HCL 0.25 MG TAB PO SCH (22:19)
[2020-08-26] MEDS: IPRATROPIUM BROM 0.5MG/2.5ML NEB PRN ×3 (01:40→14:22)
[2020-08-26] MEDS: ALBUTEROL 2.5 MG/3 ML NEB SOL NEB SCH ×4 (02:00→19:40)
[2020-08-26 05:45] LABS: Absolute Lymphocytes (CBC) 0.6 K/uL (0.7-4.9); Basophils % 0.5 % (0-1.3); Hematocrit 27.2 % (36.0-45.0); Lymphocytes % 9.6 % (15.3-44.8); MPV 8.4 fL (7.6-11.3); RBC Red Blood Cell Count 3.04 M/uL (3.86-4.86)
[2020-08-26 05:56] LABS: Magnesium 2.2 mg/dL (1.8-2.4); Phosphorus 3.6 mg/dL (2.5-4.9); Potassium 4.4 mmol/L (3.5-5.1); Uric Acid 6.1 mg/dL (2.6-6.0)
[2020-08-26] MEDS: LINEZOLID 600 MG IVPB 600 MG/300 ML BAG IV SCH ×2 (05:59→18:21)
[2020-08-26] MEDS: LEVOTHYROXINE SOD 0.1 MG TAB PO SCH (06:00)
[2020-08-26] MEDS: ARFORMOTEROL TARTRATE 15 MCG/2 ML VIAL.NEB NEB SCH ×2 (08:26→19:40)
[2020-08-26] MEDS: TOPIRAMATE 50 MG PO SCH ×2 (09:00→20:52)
[2020-08-26] MEDS ORDERED: VITAMIN D 5,000 UNIT CAP PO SCH (09:00)
--- NOTE | 2020-08-26 09:29 | P.PN ---
Subjective Date of Service: 08/26/20 Primary Care Provider: Dr. Mireles Chief Complaint: Panniculitis Patient seen examined at bedside, experiencing pain from pannus. Review of Systems 10-point ROS is otherwise unremarkable Physical Examination - Vital Signs Temperature: 97.6 F Blood Pressure: 141/58 Pulse: 91 Respirations: 20 Pulse Ox (%): 98 - Studies Microbiology Data (last 24 hrs): 08/22/20 01:30 Wound - Abdomen Gram Stain - Final 08/22/20 01:30 Wound - Abdomen Culture & Sensitivity - Final Klebsiella Oxytoca Pseudomonas Aeruginosa Enterococcus Faecalis Gram Neg Sorin Assessment And Plan - Plan Physical Exam: General: Alert, Obese HEENT: Atraumatic, Normocephalic Neck: Supple, 2+ carotid pulse no bruit Respiratory: Diminished, Other (on oxygen ) Cardiovascular: No edema, Normal S1 S2 Capillary refill: <2 Seconds Gastrointestinal: Other (Diffuse abdominal tenderness and distention. Abdominal wall inflammation with multiple ulcerations draining serous fluid.) Conclusions/Impression: Antibiotics: zyvox Start: 08/22 stop: -- Cefepime Start: 08/22 stop: -- Assessment: -recurrent panniculitis -morbid obesity -hypothyroidism -anemia -renal insufficiency -obstructive sleep apnea -hypertension -hyperlipidemia -protein caloric malnutrition moderate Plan: -continue current IV antibiotics. Continue wound care recommendations per wound care team. Recommend LTAC placements, consults to social services coordinator place. -wound culture: Growing Klebsiella, sensitive to cefepime. Blood cultures: No growth to date. -strict glucose monitoring for proper wound healing. Patient was recent hemoglobin A1c is 7.9, down trending. Last hospital stay hemoglobin A1c was 8.5. -protein caloric malnutrition: Recommend supplemental Ensure protein drinks with meals. -renal insufficiency: Creatinine up trending. Recommend renal consultation. Continue to monitor closely, will adjust antibiotic doses as needed. -medical management per primary team -continue monitor CBC and BMP -continue monitor for signs infection Plan of care discussed with Dr. Casey Thank you for consultation Physician Review Additional Text: CXR:
[2020-08-26] MEDS: INSULIN -REGULAR HUMAN 50 UNIT/0.5 ML ML SQ SCH ×4 (11:17→20:37)
[2020-08-26] MEDS: INSULIN GLARGINE 100 UNITS/ML SQ SCH (11:17)
[2020-08-26] MEDS: PENTOXIFYLLINE ER 400 MG TAB PO SCH (11:18)
[2020-08-26] MEDS: FAMOTIDINE 20 MG/2 ML VIAL IV SCH ×2 (11:19→20:36)
[2020-08-26] MEDS: PREGABALIN 150 MG CAP PO SCH ×3 (11:19→18:19)
[2020-08-26] MEDS: CEFEPIME/SWI 1gm 10 ML IVP SCH ×2 (11:19→20:38)
[2020-08-26] MEDS: METOPROLOL XL 50 MG TAB PO SCH (11:19)
[2020-08-26] MEDS: ACETYLCYST 20% 800 MG/4 ML VIAL PO SCH ×2 (11:19→20:52)
[2020-08-26] MEDS: APIXABAN 5 MG TABLET PO SCH ×2 (11:41→20:37)
[2020-08-26] MEDS: ONDANSETRON 4 MG/2 ML VIAL IV PRN (11:41)
[2020-08-26] MEDS: NYSTATIN 500,000 UNIT/5 ML UDC PO SCH ×3 (13:40→20:36)
[2020-08-26] MEDS: DIPHENHYDRAMINE 50 MG/ML VIAL IV PRN (13:40)
[2020-08-26 17:03] VITALS: BP 116/58; TEMP 97.7
--- NOTE | 2020-08-26 20:02 | P.PN ---
Date of Service: 08/26/20 Vital Signs Temp Pulse Resp BP Pulse Ox 97.7 F 798 H 20 116/58 L 98 08/26/20 16:00 08/26/20 16:00 08/26/20 16:00 08/26/20 16:00 08/26/20 16:00 Medications Acetaminophen (Acetaminophen 500 Mg Tab) 500 mg PO Q4HP PRN PRN Reason: TEMP > 100' F Last Admin: 08/25/20 11:47 Dose: 500 mg Documented by: Hydrocodone Bitart/Acetaminophen (Hydrocodone/Apap 7.5/325 Mg Tab) 1 tab PO Q6H PRN PRN Reason: Pain scale 5-7 (Moderate) Last Admin: 08/25/20 17:33 Dose: 1 tab Documented by: Acetylcysteine (Acetylcyst 20% 800 Mg/4 Ml Vial) 600 mg PO BID [facility] Stop: 08/26/20 21:01 Last Admin: 08/26/20 11:19 Dose: 600 mg Documented by: Albuterol Sulfate (Albuterol 2.5 Mg/3 Ml Neb Deb) 2.5 mg NEB [id number] [facility] Last Admin: 08/26/20 14:00 Dose: Not Given Documented by: Apixaban (Apixaban 5 Mg Tablet) 5 mg PO BID [facility] Last Admin: 08/26/20 11:41 Dose: 5 mg Documented by: Arformoterol Tartrate (Arformoterol Tartrate 15 Mcg/2 Ml Vial.Neb) 15 mcg NEB BIDRESP [facility] Last Admin: 08/26/20 08:26 Dose: 15 mcg Documented by: Cholecalciferol (Vitamin D 5,000 Unit Cap) 5,000 unit PO DAILY [facility] Last Admin: 08/26/20 11:18 Dose: 5,000 unit Documented by: Dextrose (D50w 25 Gm/50 Ml Vial) 12.5 gm IV PRN PRN; Protocol PRN Reason: HYPOGLYCEMIA Diphenhydramine HCl (Diphenhydramine 50 Mg/Ml Vial) 25 mg IV Q6H PRN PRN Reason: ITCHING Last Admin: 08/26/20 13:40 Dose: 25 mg Documented by: Famotidine (Famotidine 20 Mg/2 Ml Vial) 20 mg IV BID [facility]; Protocol Last Admin: 08/26/20 11:19 Dose: 20 mg Documented by: Fluconazole (Fluconazole 100 Mg Tab) 200 mg PO DAILY [facility]; Protocol Glucagon (Glucagon 1 Mg/Vial) 1 mg IM 1X PRN; Protocol PRN Reason: HYPOGLYCEMIA Home Med (Topiramate [Topiramate Er]) 1 tab PO BID [facility] Last Admin: 08/26/20 09:00 Dose: Not Given Documented by: Hydrochlorothiazide (Hydrochlorothiazide 25 Mg Tab) 25 mg PO DAILY [facility] Cefepime HCl (Maxipime 1 Gm/10 Ml Ivp) 10 mls @ 200 mls/hr IVP Q12HR [facility] Last Admin: 08/26/20 11:19 Dose: 10 mls Documented by: Linezolid (Zyvox 600 Mg/300 Ml Ivpb (Premix)) 600 mg in 300 mls @ 300 mls/hr IV 0500,1700 [facility]; Protocol Last Admin: 08/26/20 18:21 Dose: 300 mls Documented by: Insulin Glargine (Insulin Glargine 100 Units/Ml) 14 units SQ BID [facility] Insulin Human Regular (Insulin -Regular Human 50 Unit/0.5 Ml Ml) 0 unit SQ ACHS [facility]; Protocol Last Admin: 08/26/20 18:20 Dose: 5 unit Documented by: Ipratropium [place] (Ipratropium Brom 0.5mg/2.5ml) 0.5 mg NEB [id number] PRN PRN Reason: SHORTNESS OF BREATH Last Admin: 08/26/20 14:22 Dose: 0.5 mg Documented by: Levothyroxine Sodium (Levothyroxine Sod 0.1 Mg Tab) [facility] Last Admin: 08/26/20 06:00 Dose: 0.2 mg Documented by: Metoprolol Succinate (Metoprolol Xl 50 Mg Tab) 50 mg PO BID [facility] Nystatin (Nystatin 500,000 Unit/5 Ml Udc) 500,000 unit PO QID [facility] Last Admin: 08/26/20 18:21 Dose: 500,000 unit Documented by: Ondansetron HCl (Ondansetron 4 Mg/2 Ml Vial) 4 mg IV Q6HP PRN PRN Reason: NAUSEA / VOMITING Last Admin: 08/26/20 11:41 Dose: 4 mg Documented by: Pentoxifylline (Pentoxifylline Er 400 Mg Tab) 400 mg PO DAILY [facility] Last Admin: 08/26/20 11:18 Dose: 400 mg Documented by: Pregabalin (Pregabalin 150 Mg Cap) 150 mg PO TID* [facility] Last Admin: 08/26/20 18:19 Dose: 150 mg Documented by: Ropinirole HCl (Ropinirole Hcl 0.25 Mg Tab) 0.25 mg PO BEDTIME [facility] Last Admin: 08/25/20 22:19 Dose: Not Given Documented by: Sodium Chloride (Flush Normal Saline 10 Ml) 10 ml IV BID [facility] Last Admin: 08/26/20 09:00 Dose: 10 ml Documented by: Spironolactone (Spironolactone 25 Mg Tablet) 25 mg PO DAILY [facility] Microbiology Results 08/22/20 01:30 Wound - Abdomen Gram Stain - Final 08/22/20 01:30 Wound - Abdomen Culture & Sensitivity - Final Klebsiella Oxytoca Pseudomonas Aeruginosa Enterococcus Faecalis Gram Neg Sorin 08/22/20 02:05 Blood - Blood Aerobic Blood Culture - Preliminary No growth in 24 hours. 08/22/20 02:05 Blood - Blood Anaerobic Blood Culture - Final 08/22/20 01:54 Blood - Blood Aerobic Blood Culture - Preliminary No growth in 24 hours. 08/22/20 01:54 Blood - Blood Anaerobic Blood Culture - Preliminary No growth in 24 hours. Assessment/ Plan: Nephrology Feeling better today. CPS stable without CP or SOB. No acute events overnight. Vitals, medications, blood work and imaging reviewed in the chart. General: In no apparent distress, Oriented x3, Cooperative HEENT: Atraumatic Neck: Supple Respiratory: Clear to auscultation bilaterally Cardiovascular: Regular rate/rhythm, Edema Gastrointestinal: Soft and benign, Non-distended Musculoskeletal: No clubbing, No contractures Integumentary: No rashes, No cyanosis Neurological: Normal speech Blood work reviewed in the chart. Imagings Data: EXAM DESCRIPTION: Rebekah Single View08/22/2020 1:48 am CLINICAL HISTORY: Sepsis COMPARISON: June 2020 FINDINGS: The lungs appear clear of acute infiltrate. The heart is normal size IMPRESSION: No acute abnormalities displayed EXAM DESCRIPTION: CT - Abdomen Pelvis W Contrast - 08/22/2020 4:16 am CLINICAL HISTORY: ABD PAIN COMPARISON: 07/11/2020 TECHNIQUE: CT of the abdomen and pelvis performed following IV administration of iodinated contrast. This exam was performed according to our departmental dose-optimization program, which includes automated exposure control, adjustment of the mA and/or kV according to patient size and/or use of iterative reconstruction technique. Quantum mottle artifact due to body habitus. FINDINGS: Lung Bases: The visualized lung bases are clear. Bones: Multilevel endplate spondylosis. Abdomen: Liver: The liver has normal size and density. No intrahepatic biliary dilatation. Gallbladder: Calcified gallstones. Spleen, Pancreas, and Adrenal Glands: The spleen, pancreas, and adrenal glands are unremarkable. Kidneys: No hydronephrosis or obstructing calculus. Vasculature: Aortoiliac atherosclerosis. IVC is unremarkable. The portal vein is patent. The proximal visceral and renal arteries are patent. Stomach: The stomach and duodenum have normal course. Other: No free intraperitoneal air. No free fluid or lymphadenopathy. Mild fat stranding in the anterior abdominal wall subcutaneous soft tissues. No well- circumscribed fluid collection. Pelvis: Bladder: Urinary bladder is unremarkable. Bowel: No dilated loops of large or small bowel. Appendix: The appendix is not well individually identified. The structure thought to represent the appendix in the right lower abdomen has normal caliber. Pelvis: Uterus is not enlarged. IMPRESSION: 1. Cholelithiasis without other CT evidence of acute cholecystitis. 2. Mild fat stranding in the anterior abdominal wall subcutaneous soft tissues. This could be seen with cellulitis. No well-circumscribed fluid collection. Conclusions/Impression: ZHANE likely contrast induced nephropathy (08-22-20) complicated by hypotension CKD III -No NSAIDs -Start HCTZ 25mg and Spironolactone 25mg Daily Hypocalcemia -Continue Vitamin D HTN with CKD complicated by hypotension -Increase Metoprolol BID -Discontinue Doxazosin LE & Hip Edema -Start HCTZ 25mg and Spironolactone 25mg Daily -Low sodium diet DM II with CKD and Hyperglycemia -Increase Lantus 14 units BID -RISS Moderate malnutrition -Encourage nutrition as tolerated Anemia in chronic illness -Monitor H&H Atherosclerosis of the aorta PAD -Continue Trental
[2020-08-26] MEDS: ROPINIROLE HCL 0.25 MG TAB PO SCH (20:52)
[2020-08-26 21:00] VITALS: O2SAT 98
[2020-08-26] MEDS ORDERED: METOPROLOL XL 50 MG TAB PO SCH (21:00)
[2020-08-26] MEDS ORDERED: INSULIN GLARGINE 100 UNITS/ML SQ SCH (21:00)
[2020-08-27] MEDS ORDERED: FLUCONAZOLE 100 MG TAB PO SCH (09:00)
[2020-08-27] MEDS ORDERED: hydroCHLOROthiazide 25 MG TAB PO SCH (09:00)
[2020-08-27] MEDS ORDERED: SPIRONOLACTONE 25 MG TABLET PO SCH (09:00)
--- NOTE | 2020-08-28 03:46 | P.PN ---
Subjective Date of Service: 08/25/20 Patient is still having some drainage. Patient with cellulitis of the pannus. Awaiting transfer to a long-term acute care hospital for physical therapy with wound care Review of Systems 10-point ROS is otherwise unremarkable Physical Examination - Vital Signs Temperature: 97.7 F Blood Pressure: 116/58 Pulse: 798 Respirations: 20 Pulse Ox (%): 98 - Physical Exam General: Alert, In no apparent distress, Oriented x3 HEENT: Atraumatic, EOMI Respiratory: Clear to auscultation bilaterally, Normal air movement Cardiovascular: Regular rate/rhythm, Normal S1 S2 Gastrointestinal: Normal bowel sounds, Soft and benign, Non-distended, Tenderness Musculoskeletal: No tenderness Integumentary: Tenderness/swelling, Erythema, Warmth Neurological: Normal tone, Sensation intact, Cranial nerves 3-12 intact - Studies Microbiology Data (last 24 hrs): 08/22/20 02:05 Blood - Blood Aerobic Blood Culture - Final No growth in 5 days. 08/22/20 02:05 Blood - Blood Anaerobic Blood Culture - Final 08/22/20 01:54 Blood - Blood Aerobic Blood Culture - Final No growth in 5 days. 08/22/20 01:54 Blood - Blood Anaerobic Blood Culture - Final No growth in 5 days. Medications List Reviewed: Yes Assessment & Plan - Problems (Diagnosis) (1) Abdominal wall cellulitis Onset Date: Unknown Status: Acute (2) COPD (chronic obstructive pulmonary disease) Status: Acute (3) Depression Status: Acute (4) History of DVT (deep vein thrombosis) Status: Acute (5) History of pulmonary embolism Status: Acute (6) RLS (restless legs syndrome) Status: Acute (7) Stage III pressure ulcer Status: Acute (8) Type II diabetes mellitus Status: Acute (9) Fibromyalgia Onset Date: 09/24/17 Status: Chronic (10) Hyperlipidemia Status: Chronic Qualifiers: (11) Hypertension Onset Date: 09/24/17 Status: Chronic Qualifiers: Hypertension type: essential hypertension (12) Hypothyroidism Onset Date: 09/24/17 Status: Chronic Qualifiers: (13) Type 2 diabetes mellitus Status: Chronic Qualifiers: Diabetes mellitus intermediate insulin use: without intermediate use Diabetes mellitus complication status: with kidney complications Diabetes mellitus complication detail: with chronic kidney disease Chronic kidney disease stage: stage 3 (moderate) Chronic kidney disease stage 3 subtype: stage 3a (GFR 45- 59) Qualified Code(s): E11.22 - Type 2 diabetes mellitus with diabetic chronic kidney disease; N18.31 - Chronic kidney disease, stage 3a - Plan 1. Continue with IV antibiotic 2. Continue with local wound care 3. Wound care consultation/surgical consultation 4. Gentle IV hydration 5. Monitor CBC 6. Strict blood sugar monitoring 7. Pain control 8. Transfer to a tertiary care facility 9. GI and DVT prophylaxis Discharge Plan: LTAC Plan to discharge in: Greater than 2 days - Advance Directives Does patient have a Living Will: No Does patient have a Durable POA for Healthcare: No - Code Status/Comfort Care Code Status Assessed: Yes Code Status: Full Code Critical Care: No Time Spent Managing PTS Care (In Minutes): 35
--- NOTE | 2020-08-28 03:49 | P.DS ---
Discharge Date: 08/26/20 Primary Care Provider: Dr. Mireles Disposition: INTERMEDIATE ACUTE CARE FACILITY Discharge Condition: GOOD Reason for Admission: Panniculitis - Problems (1) Abdominal wall cellulitis Onset Date: Unknown Status: Acute (2) COPD (chronic obstructive pulmonary disease) Status: Acute (3) Depression Status: Acute (4) History of DVT (deep vein thrombosis) Status: Acute (5) History of pulmonary embolism Status: Acute (6) RLS (restless legs syndrome) Status: Acute (7) Stage III pressure ulcer Status: Acute (8) Type II diabetes mellitus Status: Acute (9) Fibromyalgia Onset Date: 09/24/17 Status: Chronic (10) Hyperlipidemia Status: Chronic Qualifiers: (11) Hypertension Onset Date: 09/24/17 Status: Chronic Qualifiers: Hypertension type: essential hypertension (12) Hypothyroidism Onset Date: 09/24/17 Status: Chronic Qualifiers: (13) Type 2 diabetes mellitus Status: Chronic Qualifiers: Diabetes mellitus buttermaker helper insulin use: without buttermaker helper use Diabetes mellitus complication status: with kidney complications Diabetes mellitus complication detail: with chronic kidney disease Chronic kidney disease stage: stage 3 (moderate) Chronic kidney disease stage 3 subtype: stage 3a (GFR 45- 59) Qualified Code(s): E11.22 - Type 2 diabetes mellitus with diabetic chronic kidney disease; N18.31 - Chronic kidney disease, stage 3a Brief History of Present Illness: Patient is a 65-year-old female with morbid obesity, diabetes mellitus type 2, hypertension, hypothyroidism, hyperlipidemia, obstructive sleep apnea, history of DVT on chronic anticoagulation and recurrent pannus infection presents emergency department for abdominal swelling/rash. Patient was seen here in admitted on 07/11/2020 for panniculitis, patient had prolonged hospital stay and was eventually transferred to tertiary center for evaluation from bariatric surgery for possible urgent intervention. Patient reports that upon arrival she was evaluated by the bariatric seen an infectious disease, patient was placed on Zyvox for a few days common bariatric surgery did recommend intervention after clearance of infection, weight loss, insurance approval and patient was discharged home on antibiotics. Patient has not gained been approved by her insurance or lost any of the weight required for the procedure, patient reports increasing redness/swelling/drainage from abdomen over the course of the last week. Hospital Course: Patient was treated with IV antibiotics. Patient's cellulitis has improved. Patient was arrange for LTAC placement. At this time, patient is clinically doing well and stable for transfer to LTAC facility for wound care and for assistance with weight loss. Will continue with physical therapy as well. Patient will discharge home with outpatient follow-up. Vital Signs/Physical Exam: Temp Pulse Resp BP Pulse Ox 97.7 F 798 H 20 116/58 L 98 08/28/20 03:46 08/28/20 03:46 08/28/20 03:46 08/28/20 03:46 08/28/20 03:46 General: Alert, In no apparent distress, Oriented x3 Laboratory Data at Discharge: WBC 6.60 K/uL (4.3-10.9) 08/26/20 05:15 Hgb 8.4 g/dL (12.0-15.0) L 08/26/20 05:15 Hct 27.2 % (36.0-45.0) L 08/26/20 05:15 Plt Count 177 K/uL (152-406) 08/26/20 05:15 PT 12.2 SECONDS (9.5-12.5) 08/22/20 01:54 INR 1.06 08/22/20 01:54 APTT 28.9 SECONDS (24.3-36.9) 08/22/20 01:54 Sodium 140 mmol/L (136-145) 08/26/20 05:15 Potassium 4.4 mmol/L (3.5-5.1) 08/26/20 05:15 BUN 29 mg/dL (7-18) H 08/26/20 05:15 Creatinine 2.05 mg/dL (0.55-1.3) H 08/26/20 05:15 Glucose 230 mg/dL (74-106) H 08/26/20 05:15 Uric Acid 6.1 mg/dL (2.6-6.0) H D 08/26/20 05:15 Phosphorus 3.6 mg/dL (2.5-4.9) 08/26/20 05:15 Magnesium 2.2 mg/dL (1.8-2.4) 08/26/20 05:15 Total Bilirubin 0.6 mg/dL (0.2-1.0) 08/24/20 05:11 AST 8 U/L (15-37) L 08/24/20 05:11 ALT 25 U/L (12-78) 08/24/20 05:11 Alkaline Phosphatase 50 U/L (45-117) 08/24/20 05:11 Triglycerides 123 mg/dL (<150) 08/23/20 05:16 Cholesterol 172 mg/dL (<200) 08/23/20 05:16 HDL Cholesterol 50 mg/dL (40-60) 08/23/20 05:16 Cholesterol/HDL Ratio 3.44 08/23/20 05:16 Amylase 40 U/L (25-115) 08/22/20 01:54 Lipase 72 U/L (73-393) L 08/22/20 01:54 Home Medications: Amlodipine Besylate 10 mg PO DAILY 05/18/20 Doxazosin [Cardura*] 1 mg PO BEDTIME 05/18/20 Furosemide [Lasix*] 20 mg PO DAILYPRN PRN 05/18/20 Insulin Aspart [Novolog Flexpen] 15 units SQ TID 05/18/20 Insulin Degludec [Tresiba Flextouch U-100] 60 units SQ BID 05/18/20 Levothyroxine Sodium [Synthroid] 200 mcg PO DAILY 05/18/20 Losartan Potassium [Cozaar] 100 mg PO DAILY 05/18/20 Metoprolol Succinate [Toprol Xl*] 50 mg PO DAILY 05/18/20 Milnacipran HCl [Savella] 100 mg PO BID 05/18/20 Pentoxifylline 400 mg PO DAILY 05/18/20 Pregabalin [Lyrica] 200 mg PO TID* 05/18/20 Spironolactone [Aldactone*] 25 mg PO DAILY 05/18/20 Topiramate [Topiramate ER] 1 tab PO BID 05/18/20 Vit D3/Vit K2/Calc Frutoborate [Move Free [id number]] 2,000 iu PO DAILY 05/18/20 Phentermine HCl 1 tab PO DAILY 07/12/20 Apixaban [Eliquis] 5 mg PO BID #60 tablet 07/22/20 Dulaglutide [Trulicity] 0.75 mg SQ EVERY 7TH DAY 08/22/20 Acetylcyst 20% Oral Deb [Mucomyst 20% (ORAL)*] 3 ml PO BID #60 ml 08/26/20 Albuterol Neb [Proventil 0.083% Neb Soln] 2.5 mg NEB [id number] #60 amp 08/26/20 Apixaban [Eliquis] 5 mg PO BID #60 tablet 08/26/20 Arformoterol Tartrate [Brovana] 15 mcg NEB BIDRESP #60 vial.neb 08/26/20 Cholecalciferol (Vitamin D3) [Vitamin D 5,000 IU Cap*] 5,000 unit PO DAILY #30 cap 08/26/20 Fluconazole [Diflucan] 200 mg PO DAILY #14 tablet 08/26/20 Hydrocodone 7.5/APAP 325 [[place] 7.5/325 mg*] 1 tab PO Q6H PRN #30 tab 08/26/20 Insulin Glargine Human [Lantus*] 12 units SQ BID #10 ml 08/26/20 Ipratropium Neb [Atrovent*] 0.5 mg NEB [id number] PRN #60 amp 08/26/20 Nystatin 5 ml PO TID #300 ml 08/26/20 Ondansetron [Zofran*] 4 mg IV Q6HP PRN #20 vial 08/26/20 New Medications: Ipratropium Neb [Atrovent*] 0.5 mg NEB [id number] PRN #60 amp PRN Reason: Shortness Of Breath Arformoterol Tartrate [Brovana] 15 mcg NEB BIDRESP #60 vial.neb Fluconazole [Diflucan] 200 mg PO DAILY #14 tablet Apixaban [Eliquis] 5 mg PO BID #60 tablet Insulin Glargine Human [Lantus*] 12 units SQ BID #10 ml Acetylcyst 20% Oral Deb [Mucomyst 20% (ORAL)*] 3 ml PO BID #60 ml Hydrocodone 7.5/APAP 325 [[place] 7.5/325 mg*] 1 tab PO Q6H PRN #30 tab PRN Reason: Pain Scale 5-7 (Moderate) Nystatin 5 ml PO TID #300 ml Albuterol Neb [Proventil 0.083% Neb Soln] 2.5 mg NEB [id number] #60 amp Cholecalciferol (Vitamin D3) [Vitamin D 5,000 IU Cap*] 5,000 unit PO DAILY #30 cap Ondansetron [Zofran*] 4 mg IV Q6HP PRN #20 vial PRN Reason: Nausea / Vomiting Physician Discharge Instructions: transfer to LTAC Wound care consult referral to Plastics for pannulectomy after LTAC discharge Diet: ADA (1600-1800kcal) Activity: Fall precautions (weight bearing as tolerated/PT) Followup: Unknown,U [Primary Care Provider] - Time spent managing pt's care (in minutes): 35
[2020-08-28 21:41] LABS: Immunoglobulin A 207 mg/dL (70-320); Immunoglobulin G 964 mg/dL (600-1540); Immunoglobulin M 55 mg/dL (50-300)
[2020-08-31 14:27] LABS: Albumin, (SPE) 2.8 g/dL (3.8-4.8); Alpha-1-Globulins 0.4 g/dL (0.2-0.3); Alpha-2-Globulins 0.8 g/dL (0.5-0.9); Gamma Globulins 0.9 g/dL (0.8-1.7); INTERPRETATION REPORT
== END 2020-08-26 20:48 | DRG 606 ==
LOC: ER 23:46 → ERHOLD 08-22 06:26 → 2ND 08-22 08:16
PROVIDERS: ADMIT Family Medicine; ATTEND Hospitalist
PROC: 5A09557 Assistance with Respiratory Ventilation, Greater than 96 Consecutive Hours, Continuous Positive Airway Pressure (ICD-10-PCS; principal; 2020-08-22)
DX: M79.3 Panniculitis, unspecified (principal); L89.893 Pressure ulcer of other site, stage 3; L03.311 Cellulitis of abdominal wall; Z68.45 Body mass index [BMI] 70 or greater, adult; I50.32 Chronic diastolic (congestive) heart failure; E44.0 Moderate protein-calorie malnutrition; I13.0 Hypertensive heart and chronic kidney disease with heart failure and stage 1 through stage 4 chronic kidney disease, or unspecified chronic kidney disease; N17.9 Acute kidney failure, unspecified; N18.31 Chronic kidney disease, stage 3a; E11.22 Type 2 diabetes mellitus with diabetic chronic kidney disease; E11.40 Type 2 diabetes mellitus with diabetic neuropathy, unspecified; E11.65 Type 2 diabetes mellitus with hyperglycemia; E11.51 Type 2 diabetes mellitus with diabetic peripheral angiopathy without gangrene; E03.9 Hypothyroidism, unspecified; E66.01 Morbid (severe) obesity due to excess calories; E78.5 Hyperlipidemia, unspecified; K21.9 Gastro-esophageal reflux disease without esophagitis; G47.33 Obstructive sleep apnea (adult) (pediatric); J44.9 Chronic obstructive pulmonary disease, unspecified; I87.2 Venous insufficiency (chronic) (peripheral); E83.51 Hypocalcemia; G43.909 Migraine, unspecified, not intractable, without status migrainosus; M79.7 Fibromyalgia; I95.9 Hypotension, unspecified; G25.81 Restless legs syndrome; F32.9 Major depressive disorder, single episode, unspecified; D63.8 Anemia in other chronic diseases classified elsewhere; E65 Localized adiposity; B96.89 Other specified bacterial agents as the cause of diseases classified elsewhere; R60.9 Edema, unspecified; Z86.718 Personal history of other venous thrombosis and embolism; Z79.01 Long term (current) use of anticoagulants; Z88.5 Allergy status to narcotic agent; Z88.0 Allergy status to penicillin; Z88.8 Allergy status to other drugs, medicaments and biological substances; Z88.1 Allergy status to other antibiotic agents; Z91.040 Latex allergy status; Z98.51 Tubal ligation status; Z79.4 Long term (current) use of insulin; Z86.711 Personal history of pulmonary embolism; Z79.890 Hormone replacement therapy; Z79.899 Other long term (current) drug therapy; Z20.822 Contact with and (suspected) exposure to COVID-19
CPT/HCPCS: 36415; 71045; 74177; 80048; 80053; 80061; 80076; 82150; 82550; 82553; 82784; 82947; 83036; 83605; 83690; 83735; 83880; 83930; 84100; 84145; 84165; 84439; 84443; 84484; 84550; 85025; 85610; 85730; 87040; 87070; 87077; 87186; 87205; 93005; 94640; 94660; 96365; 96367; 96375; 97110; 97116; 97161; 97530; 99285; J0692; J1200; J1815; J2020; J2405; J2765; J3370; J7030; J7040; J7605; Q9967; U0003

== ENCOUNTER 2021-03-01 18:08 | Inpatient (IN) | payer OTHER ==
--- OUTSIDE RECORDS SUMMARY | 2021-03-01 18:13 | XMS REPORT | Continuity of Care Document ---
:1955 Author Organization [facility] t Address [address] [place] [address] Dr. [address] [place] [address] Care Team Providers Name Role Phone Joanne Riley Primary Care Physician Dmitriy GUZMAN Attending Clinician Unavailable EDYTA Attending Clinician Unavailable Pramod ROSALES Attending Clinician Oskar ECHEVARRIA Attending Clinician Unavailable Oskar Echevarria DO Attending Clinician Doctor Unassigned, Name Attending Clinician Unavailable Jemima Attending Clinician Unavailable DANIEL Attending Clinician Unavailable Ewelina Garcia MD Attending Clinician CLAUDIA Attending Clinician Unavailable Edyta BROWN Attending Clinician ADOLFO ECHEVARRIA Attending Clinician Unavailable Loco Nelson DO Attending Clinician Dmitriy GUZMAN Admitting Clinician Unavailable Physician, Primary or Family Admitting Clinician UnavailMATTY Reese Admitting Clinician Unavailable ANGELA CHILDS Admitting Clinician Unavailable Payers Payer Name Policy Type Policy Number Effective Date Expiration Date [facility] [id number] 2020 CHOICE EXCHANGE 00:00:00 Problems Condition Condition Condition Status Onset Resolution Last Treating Co mments Source Name Details Category Date Date Treatment Clinician Date Primary Primary Disease Active 2017-02 Univers hypothyroi hypothyroi 2-12 it y of dism dism 00:00: [place] [facility] Type 2 Type 2 Disease Active Univers diabetes diabetes 912 ity of mellitus mellitus 00:: [place] with with 00 Medical proteinuri proteinuri Br anch c diabetic c diabetic nephropath nephropath y y Essential Essential Disease Active Uni vers hypertensi hypertensi 9-12 it y of on on 00:: [place] [facility] Vitamin D Vitamin D Disease Active Uni vers deficiency deficiency 12 it y of 00:00: [place] [facility] Dyslipidem Dyslipidem Disease Active U nivers ia ia 12 ity of 00:: [place] [facility] Chronic Chronic Disease Active Univers fatigue fatigue 12 ity of 00:: [place] [facility] Vitiligo Vitiligo Disease Active Unive rs -12 ity of 00:00: [place] [facility] Allergies, Adverse Reactions, Alerts Allergy Allergy Status Severity Reaction(s) Onset Inactive Treating Comm ents Source Name Type Date Date Clinician VANCOMYC Drug Active N/V 2020-0 Univers IN Class 6-05 ity of ANALOGUE 00:00: [facility] [place] Vancomyc Drug Active Nausea 2020-0 Univers in Allergy and/or 6-05 ity of Analogue Vomiting 00:00: [facility] Branch VANCOMYC Allergy Active N\T\V 2020-0 [facility] IN 6-05 ANALOGUE 00:00: LEVOFLOX DRUG Active Anaphylaxis Uni vers ACIN INGREDI 3-15 ity of 00:00: [place] [facility] Levoflox Propensi Active Anaphylaxis U nivers acin ty to 3-15 ity of adverse 00:00: [place] reaction 00 [facility] CIPROFLO Allergy Active [facility] XACIN 3-15 00:00: 00 CLARITHR Allergy Active 2020-0 [facility] OMYCIN 3-15 00:00: 00 DAPAGLIF Allergy Active 0 [facility] LOZIN 3-15 00:00: 00 LATEX Allergy Active 2020-0 [facility] 3-15 00:00: 00 LEVOFLOX Allergy Active 2020-0 [facility] ACIN 3-15 00:00: 00 MORPHINE Allergy Active [facility] 3-15 00:00: 00 PENICILL Allergy Active [facility] INS 3-15 00:00: 00 CLARITHR DRUG Active Other-Cmnt Univ ers OMYCIN INGREDI 2-27 ity of 00:00: [place] [facility] MORPHINE DRUG Active Hallucinates Un theo INGREDI 2-27 ity of 00:00: [place] 00 [facility] PENICILL Drug Active Rash Univers INS Class 2-27 ity of 00:00: [place] [facility] Branch Clarithr Propensi Active Other - See Chest U nivers omycin ty to comments 2 pain ity of adverse 00:00: [place] reaction 00 Medical s Branch Morphine Propensi Active Hallucinatio Univers ty to ns 2 ity of adverse 00:00: [place] reaction Medical Branch Penicill Propensi Active Shortness of Univers ins ty to Breath 2 ity of adverse 00:00: [place] reaction [facility] Social History Social Habit Start Date Stop Date Quantity Comments Source Exposure to Not sure [facility] SARS-CoV-2 [facility] (event) [place] Alcohol intake 2020-08-10 2020-08-10 Lifetime [facility] Col lege of 00:00:00 00:00:00 non-drinker Medicine (finding) Tobacco use and 2016-11-15 2016-11-15 Never used Universit y of exposure 00:00:00 00:00:00 [facility] Sex [birth year] Universit y of 00:00:00 00:00:00 [facility] Smoking Status Start Date Stop Date Source Never smoker [facility] Medications Ordered Filled Start Stop Current Ordering Indication Dosage Frequency Signature Comments Components Source Medication Medication Date Date Medication? Clinician (SIG) Name Name sulfamethox 2020-02 Yes [id number] 1{tbl} Take 1 Univers azole-trime 2-30 tablet by ity of thoprim 00:00: mouth [place] 800-160 mg 00 every 12 Medic al per tablet (twelve) Branc h hours. sulfamethox 2020-02 Yes [id number] 1{tbl} Take 1 Univers azole-trime 2-30 tablet by ity of thoprim 00:00: mouth [place] 800-160 mg 00 every 12 Medic al per tablet (twelve) Branc h hours. levothyroxi 2020-02 Yes [id number] TAKE 1 Univers ne 1-26 TABLET BY ity of (SYNTHROID) 00:00: MOUTH [place] 200 mcg 00 EVERY Medical tablet MORNING Branch OEM levothyroxi 2020-02 Yes [id number] TAKE 1 Univers ne 1-26 TABLET BY ity of (SYNTHROID) 00:00: MOUTH [place] 200 mcg 00 EVERY Medical tablet MORNING Branch OEM furosemide 2020-02 Yes 40mg Take 40 mg U nivers (LASIX) 40 1-19 by mouth ity o f mg tablet 15:10: [place] 28 [facility] furosemide 2020-02 Yes 40mg Take 40 mg U nivers (LASIX) 40 1-19 by mouth ity o f mg tablet 15:10: [place] needed. [place] 28 [facility] furosemide 2020-02 Yes 40mg Take 40 mg U nivers (LASIX) 40 1-19 by mouth ity o f mg tablet 15:10: [place] needed. [place] 28 [facility] furosemide 2020-02 Yes 40mg Take 40 mg U nivers (LASIX) 40 1-19 by mouth ity o f mg tablet 15:10: [place] needed. [place] [facility] insulin 2020-02 Yes [id number] 15U inject 15 U nivers aspart 1-19 Units ity of U-100 00:00: under the [place] (NOVOLOG 00 skin 3 Medical FLEXPEN (three) Branch U-100 times INSULIN) daily 100 unit/mL before (3 mL) meals. injection insulin 2020-02 Yes [id number] 65U inject 65 U nivers degludec 1-19 Units ity of (TRESIBA 00:00: [place] FLEXTOUCH 00 skin 2 Medical U-200) 200 (two) Branch unit/mL (3 times mL) InPn daily. blood sugar 2020-02 Yes [id number] Use 4 U nivers diagnostic 1-19 Times ity of (FREESTYLE 00:00: daily. [place] LITE 00 E11.8 Medical STRIPS) Branch strip insulin 2020-02 Yes [id number] 15U inject 15 U nivers aspart 1-19 Units ity of U-100 00:00: under the [place] (NOVOLOG 00 skin 3 Medical FLEXPEN (three) Branch U-100 times INSULIN) daily 100 unit/mL before (3 mL) meals. injection insulin 2020-02 Yes [id number] 65U inject 65 U nivers degludec 1-19 Units ity of (TRESIBA 00:00: [place] FLEXTOUCH 00 skin 2 Medical U-200) 200 (two) Branch unit/mL (3 times mL) InPn daily. blood sugar 2020-02 Yes [id number] Use 4 U nivers diagnostic 1-19 Times ity of (FREESTYLE 00:00: daily. [place] LITE 00 E11.8 Medical STRIPS) Branch strip insulin 2020-02 Yes [id number] 15U inject 15 U nivers aspart 1-19 Units ity of U-100 00:00: under the [place] (NOVOLOG 00 skin 3 Medical FLEXPEN (three) Branch U-100 times INSULIN) daily 100 unit/mL before (3 mL) meals. injection insulin 2020-02 Yes [id number] 65U inject 65 U nivers degludec 1-19 Units ity of (TRESIBA 00:00: [facility] FLEXTOUCH 00 skin 2 Medical U-200) 200 (two) Branch unit/mL (3 times mL) InPn daily. blood sugar 2020-02 Yes [id number] Use 4 U nivers diagnostic 1-19 Times ity of (FREESTYLE 00:00: daily. [place] LITE 00 E11.8 Medical STRIPS) Branch strip insulin 2020-02 Yes [id number] 15U inject 15 U nivers aspart 1-19 Units ity of U-100 00:00: under the [place] (NOVOLOG 00 skin 3 Medical FLEXPEN (three) Branch U-100 times INSULIN) daily 100 unit/mL before (3 mL) meals. injection insulin 2020-02 Yes [id number] 65U inject 65 U nivers degludec 1-19 Units ity of (TRESIBA 00:00: [facility] FLEXTOUCH 00 skin 2 Medical U-200) 200 (two) Branch unit/mL (3 times mL) InPn daily. blood sugar 2020-02 Yes [id number] Use 4 U nivers diagnostic 1-19 Times ity of (FREESTYLE 00:00: daily. [place] LITE 00 E11.8 Medical STRIPS) Branch strip pravastatin Yes 20mg Take 20 mg Univers 20 mg 8-27 by mouth ity of tablet 15:33: at [place] [address] bedtime. Medical Branch pravastatin 2020-0 Yes 20mg Take 20 mg Univers 20 mg 8-27 by mouth ity of tablet 15:33: at [place] [address] bedtime. Medical Branch pravastatin 2020-0 Yes 20mg Take 20 mg Univers 20 mg 8-27 by mouth ity of tablet 15:33: at [place] [address] bedtime. Medical Branch pravastatin 2020-0 Yes 20mg Take 20 mg Univers 20 mg 8-27 by mouth ity of tablet 15:33: at [place] [address] bedtime. Medical Branch amLODIPine 0 Yes 10mg Take 10 mg U nivers 10 mg 8-27 by mouth ity of tablet 15:33: daily. [place] [address] Medical Branch amLODIPine 2020-0 Yes 10mg Take 10 mg U nivers 10 mg 8-27 by mouth ity of tablet 15:33: daily. [address] Branch amLODIPine 2020-0 Yes 10mg Take 10 mg U nivers 10 mg 8-27 by mouth ity of tablet 15:33: daily. [address] Branch amLODIPine 2020-0 Yes 10mg Take 10 mg U nivers 10 mg 8-27 by mouth ity of tablet 15:33: daily. [address] Branch ondansetron 2020-0 Yes 4mg Take 4 mg U nivers 4 mg tablet 8-27 by mouth ity of 15:33: every 8 [place] [address] (eight) Medical hours as Branch needed for Nausea and Vomiting (N/V). ondansetron 2020-0 Yes 4mg Take 4 mg U nivers 4 mg tablet 8-27 by mouth ity of 15:33: every 8 [place] [address] (eight) Medical hours as Branch needed for Nausea and Vomiting (N/V). ondansetron 2020-0 Yes 4mg Take 4 mg U nivers 4 mg tablet 8-27 by mouth ity of 15:33: every 8 [place] [address] (eight) Medical hours as Branch needed for Nausea and Vomiting (N/V). ondansetron 2021-0 Yes 4mg Take 4 mg U nivers 4 mg tablet 8-27 by mouth ity of 15:33: every 8 [place] [address] (eight) Medical hours as Branch needed for Nausea and Vomiting (N/V). Milnacipran 2021-0 Yes Take by Un theo (SAVELLA) 8-27 mouth 2 ity of 100 mg Tab 15:33: (two) [place] 35 times Medical daily. Branch Milnacipran 0 Yes Take by Un theo (SAVELLA) 8-27 mouth 2 ity of 100 mg Tab 15:33: (two) [place] 35 times Medical daily. Branch Milnacipran Yes Take by Un theo (SAVELLA) 8-27 mouth 2 ity of 100 mg Tab 15:33: (two) [place] 35 times Medical daily. Branch Milnacipran 0 Yes Take by Un theo (SAVELLA) 8-27 mouth 2 ity of 100 mg Tab 15:33: (two) [place] 35 times Medical daily. Branch metoprolol Yes 50mg Take 50 mg U nivers succinate 8- by mouth ity of XL 50 mg 24 15:33: daily. [place] hr tablet 34 Medical Branch metoprolol Yes 50mg Take 50 mg U nivers succinate 8- by mouth ity of XL 50 mg 24 15:33: daily. [place] hr tablet 34 [place] Branch metoprolol Yes 50mg Take 50 mg U nivers succinate 8-27 by mouth ity of XL 50 mg 24 15:33: daily. [place] hr tablet 34 Medical Branch metoprolol Yes 50mg Take 50 mg U nivers succinate 8-27 by mouth ity of XL 50 mg 24 15:33: daily. [place] hr tablet 34 Medical Branch doxazosin 1 Yes 1mg Take 1 mg U nivers mg tablet 8- by mouth ity of 15:33: at [place] [address] bedtime. Medical Branch doxazosin 1 Yes 1mg Take 1 mg U nivers mg tablet 8-27 by mouth ity of 15:33: at [place] [address] bedtime. Medical Branch doxazosin 1 Yes 1mg Take 1 mg U nivers mg tablet 8-27 by mouth ity of 15:33: at [place] [address] bedtime. Medical Branch doxazosin 1 Yes 1mg Take 1 mg U nivers mg tablet 8-27 by mouth ity of 15:33: at [place] [address] bedtime. Medical Branch pantoprazol Yes 40mg Take 40 mg Univers e 8-27 by mouth ity of (PROTONIX) 15:33: daily. [place] 40 mg EC 25 Medical tablet Branch pantoprazol Yes 40mg Take 40 mg Univers e 8-27 by mouth ity of (PROTONIX) 15:33: daily. [place] 40 mg EC 25 Medical tablet Branch pantoprazol Yes 40mg Take 40 mg Univers e 8-27 by mouth ity of (PROTONIX) 15:33: daily. [place] 40 mg EC 25 Medical tablet Branch pantoprazol Yes 40mg Take 40 mg Univers e 8-27 by mouth ity of (PROTONIX) 15:33: daily. [place] 40 mg EC 25 Medical tablet Branch Acetaminoph Yes Take by Un theo en-Butalbit 7- mouth as ity of al 50-325 16:01: needed. [place] mg Tab 38 Medical Branch Acetaminoph Yes Take by Un theo en-Butalbit 7-09 mouth as ity of al 50-325 16:01: needed. [place] mg Tab 38 Medical Branch Acetaminoph Yes Take by Un theo en-Butalbit 7-09 mouth as ity of al 50-325 16:01: needed. [place] mg Tab 38 Medical Branch Acetaminoph Yes Take by Un theo en-Butalbit 7-09 mouth as ity of al 50-325 16:01: needed. [place] mg Tab 38 Medical Branch levothyroxi 2020- No [id number] TAKE 1 Univers ne 08-20 TABLET BY ity of (SYNTHROID) 00:00: 00:00 MOUTH [place] 200 mcg 00 :00 EVERY Medical tablet MORNING Branch OEM insulin 2020- No [id number] 10U inject 10 Univers aspart 08-20 Units ity of U-100 00:00: 00:00 under the [place] (NOVOLOG 00 :00 skin 3 Medical FLEXPEN (three) Branch U-100 times INSULIN) daily 100 unit/mL before (3 mL) meals. injection insulin 2020- No [id number] 60U inject 60 Univers degludec 08-20 Units ity of (TRESIBA 00:00: 00:00 under the [place] as FLEXTOUCH 00 :00 skin 2 Medical U-200) 200 (two) Branch unit/mL (3 times mL) InPn daily. albuterol Yes Ventolin [facility] (VENTOLIN 08-10 HFA 90 College HFA) 108 10:45: mcg/actuat of (90 base) 11 ion Medicin mcg/act aerosol e inhaler inhaler INHALE 2 PUFFS BY MOUTH EVERY 4 HOURS FOR 14 DAYS NEEDED amlodipine Yes amlodipine [facility] (NORVASC) 08-10 10 mg College 10 MG 10:45: tablet of tablet 11 TAKE 1 Medicin TABLET BY e MOUTH EVERY DAY cephALEXin Yes cephalexin [facility] (KEFLEX) 08-10 500 mg College 500 MG 10:45: capsule of capsule 11 TAKE 1 Medicin CAPSULE BY e MOUTH EVERY 6 HOURS FOR 5 DAYS ciprofloxac Yes ciprofloxa [facility] in (CIPRO) 08-10 rigoberto 250 mg Col lege 250 MG 10:45: tablet of tablet 11 TAKE 1 Medicin TABLET BY e MOUTH EVERY DAY collagenase Yes Santyl 250 Teddy (SANTYL) 08-10 unit/gram Colleg e 250 UNIT/GM 10:45: topical of ointment 11 ointment Medicin APPLY e NICKEL THICK TO WOUND DAILY docusate Yes DOK 100 mg Rich shirin sodium 08-10 capsule College (DOK) 100 10:45: TAKE ONE of MG capsule 11 CAPSULE BY Med icin MOUTH e EVERY DAY NEEDED doxycycline Yes doxycyclin [facility] (VIBRAMYCIN 08-10 e hyclate Col lege ) 100 MG 10:45: 100 mg of capsule 11 capsule Medicin e furosemide Yes furosemide [facility] (LASIX) 40 08-10 40 mg College MG tablet 10:45: tablet of 11 TAKE 1 Medicin TABLET BY e MOUTH TWICE DAILY NEEDED FOR SWEELING TAKE WITH POTASSIUM CHLORIDE 20MEQ METOPROLOL Yes [facility] SUCCINATE 08-10 College ER OR 10:45: of 11 Medicin e acetaminoph Yes acetaminop [facility] en-codeine 08-10 hen 300 Colleg e (TYLENOL 10:45: mg-codeine of #3) 300-30 11 30 mg Medicin MG per tablet e tablet TAKE 1 TABLET BY MOUTH TWICE DAILY NEEDED FOR PAIN TRESIBA Yes [facility] FLEXTOUCH 6-25 [place] 200 UNIT/ML 00:00: of SOPN 00 Medicin e ELIQUIS 5 Yes TAKE 1 [facility] MG TABS 6-10 TABLET BY [place] 00:00: MOUTH of 00 TWICE Medicin DAILY e doxycycline Yes TAKE ONE [facility] (MONODOX) 6-10 CAPSULE BY [facility] 100 MG 00:00: MOUTH of capsule 00 TWICE Medicin DAILY FOE e 90 DAYS. START THIS MEDICATION ONCE YOU HAVE COMPLETED THE LINEZOLID COURSE. SAVELLA 100 Yes TAKE 1 [facility] MG TABS 5-29 TABLET BY [place] 00:00: MOUTH of 00 TWICE Medicin DAILY e SYNTHROID Yes TAKE 1 Teddy 200 MCG 5-24 TABLET BY [place] tablet 00:00: MOUTH of 00 EVERY Medicin MORNING ON e AN EMPTY STOMACH losartan Yes TAKE 1 [facility] (COZAAR) 5-24 TABLET BY [facility] e 100 MG 00:00: MOUTH of tablet 00 EVERY DAY Medicin e spironolact Yes TAKE 1 [facility] one 5-24 TABLET BY [place] (ALDACTONE) 00:00: MOUTH of 25 MG 00 EVERY DAY Medicin tablet e BREO Yes INHALE 1 Teddy ELLIPTA 5-23 PUFF BY [place] 200-25 00:00: MOUTH ONCE of MCG/INH 00 DAILY Medicin AEPB e pregabalin Yes TAKE 1 [facility] (LYRICA) 5-20 CAPSULE BY [facility] ge 200 MG 00:00: MOUTH of capsule 00 THREE Medicin TIMES e DAILY. Insulin Yes ADMINISTER [facility] Aspart 5-17 10 UNITS [place] FlexPen 100 00:00: UNDER THE o f UNIT/ML 00 SKIN THREE Medici n SOPN TIMES e DAILY BEFORE MEALS TRULICITY Yes INJECT 0.5 [facility] 0.75 4-26 ML UNDER [place] MG/0.5ML 00:00: THE SKIN of SOPN 00 ONCE A Medicin WEEK e DIRECTED topiramate Yes TAKE 1 [facility] (TOPAMAX) 4-26 TABLET BY [facility] ge 50 MG 00:00: MOUTH of tablet 00 TWICE Medicin DAILY e XARELTO Yes See Admin [facility] STARTER 05-21 Instructio Colleg e PACK 15 & 00:00: ns. of 20 MG TBPK 00 Medicin e potassium Yes DAILY Teddy chloride 4-06 College (KDUR) 10 00:00: of MEQ tablet 00 Medicin e doxazosin Yes AT BEDTIME [facility] (CARDURA) 1 1-28 College MG tablet 00:00: of 00 Medicin e Dapaglifloz Yes Farxiga 10 [facility] in 7-27 mg tablet [place] Propanediol 00:00: TK 1 T PO o f (FARXIGA) 00 QD Medicin 10 MG TABS e BREO 0 Yes INL 1 PUFF Univers ELLIPTA 3-19 PO QD ity of 200-25 00:00: [place] mcg/dose 00 Medical DsDv Branch BREO 2020-0 Yes INL 1 PUFF Univers ELLIPTA 3-19 PO QD ity of 200-25 00:00: [place] mcg/dose 00 Medical DsDv Branch BREO 2020-0 Yes INL 1 PUFF Univers ELLIPTA 3-19 PO QD ity of 200-25 00:00: [place] mcg/dose 00 Medical DsDv Branch BREO 2020-0 Yes INL 1 PUFF Univers ELLIPTA 3-19 PO QD ity of 200-25 00:00: [place] mcg/dose 00 Medical DsDv Branch lancets (BD 2017- Yes Use as Univ ers MICROTAINER 2-12 directed ity of LANCET) 30 00:00: once daily [place] gauge Misc 00 DX E11.21 Medi [place] Branch lancets (BD 2017-02 Yes Use as Univ ers MICROTAINER 2-12 directed ity of LANCET) 30 00:00: once daily [place] gauge Misc 00 DX E11.21 Medi [place] Branch lancets (BD 2017- Yes Use as Univ ers MICROTAINER 2-12 directed ity of LANCET) 30 00:00: once daily [place] gauge Misc 00 DX E11.21 Medi [place] Branch lancets (BD 2017-02 Yes Use as Univ ers MICROTAINER 2-12 directed ity of LANCET) 30 00:00: once daily [place] gauge Misc 00 DX E11.21 Medi [place] Branch losartan Yes [id number] 100mg Take 1 Un theo 100 mg 9-12 tablet by ity of tablet 00:00: mouth [place] 00 daily. Medical Branch losartan Yes [id number] 100mg Take 1 Un theo 100 mg 9-12 tablet by ity of tablet 00:00: mouth [place] 00 daily. Medical Branch losartan Yes [id number] 100mg Take 1 Un theo 100 mg 9-12 tablet by ity of tablet 00:00: mouth [place] 00 daily. Medical Branch losartan Yes [id number] 100mg Take 1 Un theo 100 mg 9-12 tablet by ity of tablet 00:00: mouth [place] 00 daily. Medical Branch Blood-Gluco Yes Use as Univ ers se Meter 7-11 directed, ity of (BLOOD 00:00: DX:E11.9, [place] GLUCOSE 00 TID Medical MONITORING) Branch Kit lancets 33 Yes Use as Unive rs gauge Misc 7-11 directed, ity of 00:00: TID, [place] 00 DX:E11.9 Medical Branch Blood-Gluco Yes Use as Univ ers se Meter 7-11 directed, ity of (BLOOD 00:00: DX:E11.9, [place] GLUCOSE 00 TID Medical MONITORING) Branch Kit lancets 33 Yes Use as Unive rs gauge Misc 7-11 directed, ity of 00:00: TID, [place] 00 DX:E11.9 Medical Branch Blood-Gluco Yes Use as Univ ers se Meter 7-11 directed, ity of (BLOOD 00:00: DX:E11.9, [place] GLUCOSE 00 TID Medical MONITORING) Branch Kit lancets 33 Yes Use as Unive rs gauge Misc 7-11 directed, ity of 00:00: TID, [place] 00 DX:E11.9 Medical Branch Blood-Gluco Yes Use as Univ ers se Meter 7-11 directed, ity of (BLOOD 00:00: DX:E11.9, [place] GLUCOSE 00 TID Medical MONITORING) Branch Kit lancets 33 Yes Use as Unive rs gauge Misc 7-11 directed, ity of 00:00: TID, [place] 00 DX:E11.9 Medical Branch blood sugar 2020- No Use as Uni vers diagnostic 7-11 - directed, ity of (BLOOD 00:00: 00:00 TID, [place] GLUCOSE 00 :00 DX:E11.9 Medical TEST) strip Branch Immunizations Ordered Filled Immunization Date Status Comments Sour e Immunization Name Name Influenza Virus 2019-11-27 Completed Universit y of Vaccine 00:00:00 [facility] Influenza Virus 2019-11-27 Completed Universit y of Vaccine 00:00:00 [facility] Influenza Virus 2019-11-27 Completed Universit y of Vaccine 00:00:00 [facility] Influenza Virus 2019-11-27 Completed Universit y of Vaccine 00:00:00 [facility] Vital Signs Vital Name Observation Time Observation Value Comments Source HEIGHT 2020-07-17 18:00:00 157.5 cm WEIGHT 2020-07-17 18:00:00 216.366 kg Systolic blood 2021-02-11 01:26:00 163 mm[Hg] Univer sity of pressure [facility] Diastolic blood 2021-02-11 01:26:00 98 mm[Hg] Unive rsity of [facility] Heart rate 2021-02-11 01:26:00 73 /min [facility] Body temperature 2021-02-11 01:26:00 36.94 [facility] Respiratory rate 2021-02-11 01:26:00 18 /min [facility] Body height 2021-02-11 01:26:00 157.5 cm [facility] Body weight 2021-02-11 01:26:00 190.511 kg [facility] BMI 2021-02-11 01:26:00 76.82 kg/m2 [facility] Oxygen saturation in 2021-02-11 01:26:00 98 /min [facility] Arterial blood by [facility] Pulse oximetry Branch Systolic blood 2020-12-31 21:31:00 125 mm[Hg] Univer sity of pressure [facility] Diastolic blood 2020-12-31 21:31:00 84 mm[Hg] Unive rsity of pressure [facility] HEIGHT 2020-07-17 18:00:00 157.5 cm WEIGHT 2020-07-17 18:00:00 216.366 kg HEIGHT 2020-04-26 14:01:00 157.5 cm WEIGHT 2020-04-26 14:01:00 199.129 kg HEIGHT 2020-04-26 14:01:00 157.5 cm WEIGHT 2020-04-26 14:01:00 199.129 kg Procedures Procedure Date / Time Performed Performing Clinician [facility] e NOTICE OF PRIVACY 2021-02-11 01:12:19 [facility] Branch CONSENT/REFUSAL FOR 2021-02-11 01:11:45 [facility] AND Name Medical Branch TREATMENT POCT HEMOGLOBIN A1C 2020-12-31 21:31:00 Rosalina Benavidez [facility] TEST Medical Branch DIABETES TESTING 2020-12-31 06:01:00 Doctor Unassigned, No Unive [facility] REPORTS Name Medical Branch [id number] 2020-09-11 00:00:00 ENCPL Plan of Care Planned Activity Planned Date Details Comments Source Future Scheduled 2020-08-23 Screening for malignant [facility] Test 11:38:21 neoplasm of colon Medicine (procedure) [code = [id number]] Future Scheduled 2020-08-23 Screening for malignant [facility] Test 11:38:21 neoplasm of breast Medicine (procedure) [code = 379311235] Future Scheduled 2020-08-23 COVID-19 Vaccine (1) [facility] 11:38:21 [code = COVID-19 Vaccine Med icine (1)] Future Scheduled 2020-08-23 TETANUS SHOT (ADULT) [facility] 11:38:21 [code = TETANUS SHOT Medicin e (ADULT)] Future Scheduled 2020-08-23 Hepatitis C screening Ba [facility] Test 11:38:21 (procedure) [code = Medicine [id number]] Future Scheduled 2020-08-23 Human immunodeficiency B [facility] 11:38:21 virus screening Medicine (procedure) [code = [id number]] Future Scheduled 2020-08-23 Screening for malignant [facility] Test 11:38:21 neoplasm of cervix Medicine (procedure) [code = [id number]] Future Scheduled 2020-08-23 ZOSTER VACCINE (1 of 2) [facility] Test 11:38:21 [code = ZOSTER VACCINE (1 Me dicine of 2)] Future Scheduled 2020-08-23 FLU VACCINE > 6 MONTHS B [facility] 11:38:21 [code = FLU VACCINE > 6 Medi cine MONTHS] Encounters Start End Encounter Admission Attending Care Care Encounter Source Date/Time Date/Time Type Type Clinicians Facility Department ID 2020-11-21 Inpatient UR ROLA GUZMAN Plastic [id number] [facility] 00:07:12 [facility] Surg 2020-11-[address] [facility] General Med [id number] 23:47:47 [facility] 2020-11-20 Inpatient UR [facility] Med [id number] 23:47:47 [facility] 2021-05-10 2021-05-10 [facility] [id number] [facility] 11:30:00 11:30:00 RONI [id number] ity [facility] 2021-02-24 2021-02-24 Telephone [facility] [id number] [id number] [facility] 00:00:00 00:00:00 [facility] [id number] it y [facility] [id number] Nakul as FREDDY?BLEA [phone] [address] MEDICAL OFFICE BUILDING 2021-02-10 2021-02-10 [facility] [id number] Univers 19:31:00 20:05:00 [facility]10 2021-02-10 Emergency [facility] [id number] Univers 19:31:00 20:05:00 Amy DYE [id number] ity [facility] [id number] [facility] [phone] [facility] [place] [address] 2021-01-18 2021-01-18 ambulatory [facility] [id number] [facility] 2021-01-18 2021-01-18 ambulatory [facility] [id number] [facility] 2021-01-17 2021-01-17 ambulatory [facility] [id number] [facility] 2021-01-13 2021-01-[id number] 2020-12-31 2020-12-31 Office EJ Benavidez 1.2.840.114 [id number] [facility] 14:53:57 16:03:30 Visit [facility] [id number] it y of [place] [id number] Nakul as FREDDY?BLEA [phone] [address] [facility] 2020-12-31 2020-12-31 Orders Doctor VIRIDIANA 1.2.840.114 [id number] [facility] 00:00:00 00:00:00 Only Unassigned, IVA [id number] [facility] [id number] Nakul as [phone] [address] 2020-12-24 2020-12-[address] [id number] [facility] 2020-12-07 2020-12-[address] [id number] [facility] 2020-11-24 2020-11-[address] [id number] [facility] 2020-11-23 2020-11-[address] [facility] [id number] [facility] 2020-11-19 2020-11-[address] [id number] [facility] 2020-10-19 2020-10-[address] [id number] [facility] 2020-10-16 2020-10-[address] [id number] [facility] 2020-10-13 2020-10-[address] [facility] [id number] [facility] 2020-09-22 2020-09-[address] [facility] [id number] [facility] 2020-09-22 2020-09-[address] [facility] [id number] [facility] 2020-09-15 2020-09-[address] [facility] [id number] [facility] 2020-09-12 2020-09-12 Outpatient Grace Onofre HCAPM RADI LA5 [id number] [facility] 12:04:00 12:04:[id number] [place] [address] 2020-09-12 2020-09-12 Outpatient Grace Onofre HCAPM RADI LA5 [id number] [facility] 12:04:00 12:04:00 [id number] [facility] 2020-09-12 2020-09-12 Outpatient DANIEL HCAPM LABO [id number] [facility] 09:32:00 09:32:00 [facility] [id number] [facility] 2020-09-11 2020-09-11 Outpatient DANIEL HCAPM LABO [id number] [facility] 12:59:00 12:59:00 PERNELL [id number] [facility] 2020-08-23 2020-08-23 Office YOBANI Garcia 1.2.840.114 [id number] [facility] 11:39:20 12:12:01 Visit Samer Gamil AMBULATOR [id number] College Y 0.2.7.2.686 of [phone] [facility] 805 e 2020-08-20 2020-08-20 [facility] 1.2.840.114 [id number] 09:25:34 09:55:34 ne Visit Rosalina Dye [id number] [place] [id number] Professio [phone] [address] 2020-08-12 2020-08-12 Outpatient [facility] [id number] [facility] 2020-08-10 2020-08-10 Outpatient YOBANI [facility] [id number] [facility] 10:35:03 11:07:09 DANIEL Le Medicin e 2020-08-04 2020-08-04 Outpatient [facility] [id number] [facility] 2020 2020 Orders Doctor KEMP 1.2.840.114 [id number] 00:00:00 00:00:00 Only Unassigned, IVA 350.1.13.10 [facility] [phone] [id number] 2020-07-03 2020-07-03 [facility] 1.2.840.114 [id number] 00:00:00 00:00:00 Roni Dye [id number] [place] [id number] Professio [phone] [address] 2020-07-02 2020-07-02 Outpatient [facility] [id number] [facility] 2020-06-30 2020-06-30 Outpatient [facility] [id number] [facility] 2020-06-28 2020-06-28 Outpatient [facility] [id number] [facility] 2020-06-16 2020-06-16 Outpatient [facility] [id number] [facility] 00[facility] [facility] 2020-06-07 2020-06-07 Refill Gillis, [facility] 1.2.840.114 [id number] 00:00:00 00:00:00 [place] [id number] [place] [id number] Professio [phone] [address] 2020-05-28 2020-05-28 Outpatient [facility]ML[facility] [id number] [facility] 00:00:00 00:00:[address] [facility] 2020-05-18 2020-05-18 Telephone Gillis, [facility] [id number] 00:00:00 00:00:00 [place] [id number] [place] [id number] Professio [phone] [address] 2020-05-12 2020-05-12 Refill Gillis, [facility] 1.2.840.114 [id number] 00:00:00 00:00:00 [place] [id number] [place] [id number] Professio [phone] [address] 2020-05-06 2020-05-06 Refill Edyta, [facility] 1.2.840.114 [id number] 00:00:00 00:00:00 [place] 350.1.13.10 [place] 4.2.7.2.686 Professio [phone] [address] 2020-04-28 2020-04-28 Telephone Edyta, [facility] [id number] [id number] 00:00:00 00:00:00 [place] [id number] [place] [id number] Professio [phone] [address] 2020-04-26 2020-04-26 Emergency ER [facility] Emergency [id number] [facility] 13:28:00 13:28:00 2020-04-21 2020-04-21 Patient Omar NDMYLES 1.2.840.114 [id number] 00:00:00 00:00:00 Outreach [facility] [id number] [facility] 4.2.7.2.686 [facility]ION [phone] 388 2020-04-09 2020-04-09 Outpatient [facility] [id number] [facility] 2020-03-24 2020-03-24 Outpatient [facility] [id number] [facility] 2020-03-18 2020-03-18 Outpatient [facility] [id number] [facility] 2020-03-17 2020-03-17 [facility] 1.2.840.114 [id number] 00:00:00 00:00:00 [facility] [id number] [place] [id number] Professio [phone] [facility] 220 [facility] 2020-03-10 2020-03-10 Outpatient [facility] [id number] [facility] 2020-02-20 2020-02-20 Outpatient [facility] [id number] [facility] 2020-02-20 2020-02-20 [facility] [id number] 00:00:00 00:00:00 [facility] [id number] [place] [id number] Professio [phone] [facility] 220 Building 2020-02-05 2020-02-05 Outpatient [facility] [id number] [facility] 2020-02-03 2020-02-03 Outpatient [facility] [id number] [facility] 2020-02-03 2020-02-03 Outpatient [facility] [id number] [facility] 2020-02-02 2020-02-[address] [facility] [id number] [facility] 2020-01-28 2020-01-[address] [facility] [id number] [facility] 2020-01-27 2020-01-[address] [facility] [id number] 2020-01-23 2020-01-[address] [facility] [id number] [facility] 2020-01-22 2020-01-22 Orders Doctor VIRIDIANA 1.2.840.114 [id number] 00:00:00 00:00:00 Only Unassigned, IVA 350.1.13.10 [place] [facility] [phone] 009 2020-01-20 2020-01-20 Office Gillis, [facility] 1.2.840.114 [id number] 13:47:46 15:12:23 Visit Roni [place] [id number] [place] [id number] Professio [phone] [address] 2020-01-12 2020-01-12 [id number] 2020-01-06 2020-01-[address] [facility] [id number] [facility] 2020-01-02 2020-01-[address] [facility] [id number] [facility] 2019-12-26 2019-12-26 [facility] [id number] [facility] 2019-12-22 2019-12-22 [facility] [id number] [facility] 00:[facility] [facility] Results Test Description Test Time Test Comments Results Result Comments Source POCT HEMOGLOBIN A1C TEST 2020-12-31 21:31:00 Test Item Value Reference Range Interpretation Comme nts POCT HBA1C (test code = 4548-4) 7.0 % 4-6 A Lab Interpretation (test code = 07660-0) [facility] [id number] 13:17:00 Test Item Value Reference Range Interpretation Comments WHITE BLOOD CELL (test code = 13.4 K/mm3 3.5-11.0 H WBC) RED BLOOD CELL (test code = RBC) 2.48 M/mm3 4.70-6.10 L HEMOGLOBIN (test code = HGB) 7.1 G/DL 10.4-14.9 L HEMATOCRIT (test code = HCT) 24.1 % 31.5-44.1 L MEAN CELL VOLUME (test code = 97.2 Fl 84.5-98.6 N MCV) MEAN CELL HGB (test code = MCH) 28.6 pg 27.0-34.2 N MEAN CELL HGB CONCETRATION (test 29.5 G/DL 31.5-34.0 L code = MCHC) RED CELL DISTRIBUTION WIDTH 17.1 SD 11.5-14.5 H (test code = RDW) PLATELET COUNT (test code = PLT) 206 K/mm3 150-450 N MEAN PLATELET VOLUME (test code 11.10 fL 7.0-10.5 H = MPV) MANUAL DIFF REQUIRED (test code YES DIFF/SCN CRITERIA = MDIFF) WBC [id number] 13:17:00 Test Item Value Reference Range Interpretation Comments SEGMENTED NEUTROPHILS (test 53 % 40-75 N code = SEG) BAND NEUTROPHIL (test code 12 % 0-8 H = BAND) LYMPHOCYTE (test code = 11 % 18.7-40.6 L LYMPH) MONOCYTE (test code = MON) 9 % 3.8-11.4 N EOSINOPHIL (test code = 3 % 0.0-4.1 N EOS) METAMYELOCYTE (test code = 8 % 0-2 H META) MYELOCYTE (test code = 4 % 0-1 H MYELO) POLYCHROMASIA (test code = 2+ ON SCAN NONE A POLC) HYPOCHROMIA (test code = 1+ ON SCAN NONE HYPO) BASOPHILIC STIPPLING (test TRACE ON SCAN NONE code = STP) ANISOCYTOSIS (test code = 2+ NONE A ANISO) MACROCYTOSIS (test code = 1+ ON SCAN NONE MACR) SPHEROCYTES (test code = TRACE ON SCAN NONE SPH) PLATELET ESTIMATE (test ADEQUATE THOUSAND ADEQUATE code = PLTEST) PLATELET MORPHOLOGY (test NORMAL code = PLTMORPH) CBC W/AUTO [id number] 13:36:00 Test Item Value Reference Range Interpretation Comments WHITE BLOOD CELL (test code = 13.4 K/mm3 3.5-11.0 H WBC) RED BLOOD CELL (test code = RBC) 2.48 M/mm3 4.70-6.10 L HEMOGLOBIN (test code = HGB) 7.1 G/DL 10.4-14.9 L HEMATOCRIT (test code = HCT) 24.1 % 31.5-44.1 L MEAN CELL VOLUME (test code = 97.2 Fl 84.5-98.6 N MCV) MEAN CELL HGB (test code = MCH) 28.6 pg 27.0-34.2 N MEAN CELL HGB CONCETRATION (test 29.5 G/DL 31.5-34.0 L code = MCHC) RED CELL DISTRIBUTION WIDTH 17.1 SD 11.5-14.5 H (test code = RDW) PLATELET COUNT (test code = PLT) 206 K/mm3 150-450 N MEAN PLATELET VOLUME (test code 11.10 fL 7.0-10.5 H = MPV) MANUAL DIFF REQUIRED (test code YES DIFF/SCN CRITERIA = MDIFF) WBC [id number] 13:36:00 Test Item Value Reference Range Interpretation Comments SEGMENTED NEUTROPHILS (test code = % 40-75 N SEG) BAND NEUTROPHIL (test code = BAND) % 0-8 H LYMPHOCYTE (test code = LYMPH) % 18.7-40.6 L MONOCYTE (test code = MON) % 3.8-11.4 N EOSINOPHIL (test code = EOS) % 0.0-4.1 N METAMYELOCYTE (test code = META) % 0-2 H MYELOCYTE (test code = MYELO) % 0-1 H POLYCHROMASIA (test code = POLC) ON SCAN NONE A HYPOCHROMIA (test code = HYPO) ON SCAN NONE BASOPHILIC STIPPLING (test code = ON SCAN NONE STP) ANISOCYTOSIS (test code = ANISO) NONE A MACROCYTOSIS (test code = MACR) ON SCAN NONE SPHEROCYTES (test code = SPH) ON SCAN NONE PLATELET ESTIMATE (test code = THOUSAND ADEQUATE PLTEST) PLATELET MORPHOLOGY (test code = PLTMORPH) WBC [id number] 13:34:00 Test Item Value Reference Range Interpretation Comments SEGMENTED NEUTROPHILS (test code = SEG) % 40-75 LYMPHOCYTE (test code = LYMPH) % 18.7-40.6 CBC W/AUTO [id number] 13:34:00 Test Item Value Reference Range Interpretation Comments WHITE BLOOD CELL (test code = 13.4 K/mm3 3.5-11.0 H WBC) RED BLOOD CELL (test code = RBC) 2.48 M/mm3 4.70-6.10 L HEMOGLOBIN (test code = HGB) 7.1 G/DL 10.4-14.9 L HEMATOCRIT (test code = HCT) 24.1 % 31.5-44.1 L MEAN CELL VOLUME (test code = 97.2 Fl 84.5-98.6 N MCV) MEAN CELL HGB (test code = MCH) 28.6 pg 27.0-34.2 N MEAN CELL HGB CONCETRATION (test 29.5 G/DL 31.5-34.0 L code = MCHC) RED CELL DISTRIBUTION WIDTH 17.1 SD 11.5-14.5 H (test code = RDW) PLATELET COUNT (test code = PLT) 206 K/mm3 150-450 N MEAN PLATELET VOLUME (test code 11.10 fL 7.0-10.5 H = MPV) MANUAL DIFF REQUIRED (test code YES DIFF/SCN CRITERIA = MDIFF) WBC [id number] 13:34:00 Test Item Value Reference Range Interpretation Comments SEGMENTED NEUTROPHILS (test code = SEG) % 40-75 LYMPHOCYTE (test code = LYMPH) % 18.7-40.6 CBC W/AUTO [id number] 13:34:00 Test Item Value Reference Range Interpretation Comments WHITE BLOOD CELL (test code = 13.4 K/mm3 3.5-11.0 H WBC) RED BLOOD CELL (test code = RBC) 2.48 M/mm3 4.70-6.10 L HEMOGLOBIN (test code = HGB) 7.1 G/DL 10.4-14.9 L HEMATOCRIT (test code = HCT) 24.1 % 31.5-44.1 L MEAN CELL VOLUME (test code = 97.2 Fl 84.5-98.6 N MCV) MEAN CELL HGB (test code = MCH) 28.6 pg 27.0-34.2 N MEAN CELL HGB CONCETRATION (test 29.5 G/DL 31.5-34.0 L code = MCHC) RED CELL DISTRIBUTION WIDTH 17.1 SD 11.5-14.5 H (test code = RDW) PLATELET COUNT (test code = PLT) 206 K/mm3 150-450 N MEAN PLATELET VOLUME (test code 11.10 fL 7.0-10.5 H = MPV) MANUAL DIFF REQUIRED (test code YES DIFF/SCN CRITERIA = MDIFF) CBC W/AUTO [id number] 10:00:00 Test Item Value Reference Range Interpretation Comments WHITE BLOOD CELL (test code = WBC) 13.4 K/mm3 3.5-11.0 H RED BLOOD CELL (test code = RBC) 2.48 M/mm3 4.70-6.10 L HEMOGLOBIN (test code = HGB) 7.1 G/DL 10.4-14.9 L HEMATOCRIT (test code = HCT) 24.1 % 31.5-44.1 L MEAN CELL VOLUME (test code = MCV) 97.2 Fl 84.5-98.6 N MEAN CELL HGB (test code = MCH) 28.6 pg 27.0-34.2 N MEAN CELL HGB CONCETRATION (test 29.5 G/DL 31.5-34.0 L code = MCHC) RED CELL DISTRIBUTION WIDTH (test SD 11.5-14.5 H code = RDW) PLATELET COUNT (test code = PLT) 206 K/mm3 150-450 N MEAN PLATELET VOLUME (test code = fL 7.0-10.5 H MPV) NEUTROPHIL % (test code = NT%) % 40-76 N IMMATURE GRANULOCYTE % (test code % 0.0-5.0 H = IG%) LYMPHOCYTE % (test code = LY%) % 20.5-51.1 L MONOCYTE % (test code = MO%) % 1.7-9.3 N EOSINOPHIL % (test code = EO%) % 0.0-6.0 N BASOPHIL % (test code = BA%) % 0.0-2.0 N NUCLEATED RBC % (test code = /100WBC% 0.0-1.0 H NRBC%) NEUTROPHIL # (test code = NT#) K/mm3 1.8-7.6 H IMMATURE GRANULOCYTE # (test code x10 3/uL 0.00-0.03 H = IG#) LYMPHOCYTE # (test code = LY#) K/mm3 0.6-3.2 N MONOCYTE # (test code = MO#) K/mm3 0.3-1.1 H EOSINOPHIL # (test code = EO#) K/mm3 0.0-0.4 H BASOPHIL # (test code = BA#) K/mm3 0.0-0.1 N NUCLEATED RBC # (test code = K/mm3 0.0-0.1 H NRBC#) MANUAL DIFF REQUIRED (test code = DIFF/SCN CRITERIA MDIFF) CBC W/AUTO [id number] 14:20:00 Test Item Value Reference Range Interpretation Comments WHITE BLOOD CELL (test code = 19.6 K/mm3 3.5-11.0 H WBC) RED BLOOD CELL (test code = RBC) 2.30 M/mm3 4.70-6.10 L HEMOGLOBIN (test code = HGB) 6.4 G/DL 10.4-14.9 LL HEMATOCRIT (test code = HCT) 21.9 % 31.5-44.1 L MEAN CELL VOLUME (test code = 95.2 Fl 84.5-98.6 N MCV) MEAN CELL HGB (test code = MCH) 27.8 pg 27.0-34.2 N MEAN CELL HGB CONCETRATION (test 29.2 G/DL 31.5-34.0 L code = MCHC) RED CELL DISTRIBUTION WIDTH 17.3 SD 11.5-14.5 H (test code = RDW) PLATELET COUNT (test code = PLT) 226 K/mm3 150-450 N MEAN PLATELET VOLUME (test code 11.40 fL 7.0-10.5 H = MPV) MANUAL DIFF REQUIRED (test code YES DIFF/SCN CRITERIA = MDIFF) WBC [id number] 14:20:00 Test Item Value Reference Range Interpretation Comments SEGMENTED NEUTROPHILS (test code = 69 % 40-75 N SEG) BAND NEUTROPHIL (test code = BAND) 1 % 0-8 N LYMPHOCYTE (test code = LYMPH) 5 % 18.7-40.6 L MONOCYTE (test code = MON) 9 % 3.8-11.4 N EOSINOPHIL (test code = EOS) 5 % 0.0-4.1 H METAMYELOCYTE (test code = META) 4 % 0-2 H MYELOCYTE (test code = MYELO) 7 % 0-1 H NUCLEATED RED BLOOD CELL (test 5 #/100WBC 0-0 H code = NRBC) CBC W/AUTO [id number] 14:19:00 Test Item Value Reference Range Interpretation Comments WHITE BLOOD CELL (test code = 19.6 K/mm3 3.5-11.0 H WBC) RED BLOOD CELL (test code = RBC) 2.30 M/mm3 4.70-6.10 L HEMOGLOBIN (test code = HGB) 6.4 G/DL 10.4-14.9 LL HEMATOCRIT (test code = HCT) 21.9 % 31.5-44.1 L MEAN CELL VOLUME (test code = 95.2 Fl 84.5-98.6 N MCV) MEAN CELL HGB (test code = MCH) 27.8 pg 27.0-34.2 N MEAN CELL HGB CONCETRATION (test 29.2 G/DL 31.5-34.0 L code = MCHC) RED CELL DISTRIBUTION WIDTH 17.3 SD 11.5-14.5 H (test code = RDW) PLATELET COUNT (test code = PLT) 226 K/mm3 150-450 N MEAN PLATELET VOLUME (test code 11.40 fL 7.0-10.5 H = MPV) MANUAL DIFF REQUIRED (test code YES DIFF/SCN CRITERIA = MDIFF) WBC [id number] 14:19:00 Test Item Value Reference Range Interpretation Comments SEGMENTED NEUTROPHILS (test code = SEG) % 40-75 LYMPHOCYTE (test code = LYMPH) % 18.7-40.6 CBC W/AUTO [id number] 14:19:00 Test Item Value Reference Range Interpretation Comments WHITE BLOOD CELL (test code = 19.6 K/mm3 3.5-11.0 H WBC) RED BLOOD CELL (test code = RBC) 2.30 M/mm3 4.70-6.10 L HEMOGLOBIN (test code = HGB) 6.4 G/DL 10.4-14.9 LL HEMATOCRIT (test code = HCT) 21.9 % 31.5-44.1 L MEAN CELL VOLUME (test code = 95.2 Fl 84.5-98.6 N MCV) MEAN CELL HGB (test code = MCH) 27.8 pg 27.0-34.2 N MEAN CELL HGB CONCETRATION (test 29.2 G/DL 31.5-34.0 L code = MCHC) RED CELL DISTRIBUTION WIDTH 17.3 SD 11.5-14.5 H (test code = RDW) PLATELET COUNT (test code = PLT) 226 K/mm3 150-450 N MEAN PLATELET VOLUME (test code 11.40 fL 7.0-10.5 H = MPV) MANUAL DIFF REQUIRED (test code YES DIFF/SCN CRITERIA = MDIFF) WBC [id number] 14:19:00 Test Item Value Reference Range Interpretation Comments SEGMENTED NEUTROPHILS (test code = SEG) % 40-75 LYMPHOCYTE (test code = LYMPH) % 18.7-40.6 BLOOD [id number] 22:00:00 Test Item Value Reference Range Interpretation Comments CULTURE (BEAKER) (test No growth in 5 days code = 1095) BLOOD [id number] 22:00:00 Test Item Value Reference Range Interpretation Comments CULTURE (BEAKER) (test No growth in 5 days code = 1095) POCT-GLUCOSE [id number] 11:58:00 Test Item Value Reference Range Interpretation Comments POC-GLUCOSE METER 221 mg/dL 70-110 H : TESTED A T [facility] 6720 (BEAKER) (test code = [facility] [employer] [facility], 1538) 16590: Revenue Cycle Analyst/Techni tyrone ID = [id number] for DA FREDERICK COVARRUBIASA [id number] 10:35:00 Test Item Value Reference Range Interpretation Comments PARTIAL THROMBOPLASTIN TIME 67.9 seconds 22.5-36.0 H (BEAKER) (test code = 760) POCT-GLUCOSE [id number] 07:57:00 Test Item Value Reference Range Interpretation Comments POC-GLUCOSE METER 188 mg/dL 70-110 H : TESTED A T [facility] 6720 (BEAKER) (test code = [facility] [employer] [facility], 1538) 81854: Revenue Cycle Analyst/Techni tyrone ID = [id number] for DA VIS, KEYAIRA [id number] 03:16:00 Test Item Value Reference Range Interpretation Comments PARTIAL THROMBOPLASTIN TIME 58.1 seconds 22.5-36.0 H (BEAKER) (test code = 760) POCT-GLUCOSE [id number] 21:56:00 Test Item Value Reference Range Interpretation Comments POC-GLUCOSE METER 225 mg/dL 70-110 H : TESTED A T [facility] 6720 (BEAKER) (test code = [facility], 1538) 12302: Revenue Cycle Analyst/Techni tyrone ID = [id number] for SEAMUS SANTOS [id number] 18:33:00 Test Item Value Reference Range Interpretation Comments PARTIAL THROMBOPLASTIN TIME 47.3 seconds 22.5-36.0 H (BEAKER) (test code = 760) [id number] 17:13:00 Test Item Value Reference Range Interpretation Comments PARTIAL THROMBOPLASTIN TIME > seconds 22.5-36.0 HH (BEAKER) (test code = 760) POCT-GLUCOSE [id number] 17:06:00 Test Item Value Reference Range Interpretation Comments POC-GLUCOSE METER 193 mg/dL 70-110 H : TESTED A T [facility] 6720 (BEAKER) (test code = [facility], [facility]8) 73411: Revenue Cycle Analyst/Techni tyrone ID = [id number] for DA VIS, KEYAIRA POCT-GLUCOSE [id number] 13:16:00 Test Item Value Reference Range Interpretation Comments POC-GLUCOSE METER 230 mg/dL 70-110 H : TESTED A T [facility] 6720 (BEAKER) (test code = [facility], 1538) 26632: Revenue Cycle Analyst/Techni tyrone ID = [id number] for DA VIS, KEYAIRA POCT-GLUCOSE [id number] 07:59:00 Test Item Value Reference Range Interpretation Comments POC-GLUCOSE METER 143 mg/dL 70-110 H : TESTED A T [facility] 6720 (BEAKER) (test code = [facility], 1538) 93595: Revenue Cycle Analyst/Techni tyrone ID = [id number] for DA VIS, KEYAIRA [id number] 06:08:00 Test Item Value Reference Range Interpretation Comments PARTIAL THROMBOPLASTIN TIME 106.1 seconds 22.5-36.0 H (BEAKER) (test code = 760) [id number] 22:41:00 Test Item Value Reference Range Interpretation Comments PARTIAL THROMBOPLASTIN TIME 93.2 seconds 22.5-36.0 H (BEAKER) (test code = 760) BASIC METABOLIC [id number] 22:40:00 Test Item Value Reference Range Interpretation [...] S NOT APPLICABLE FOR DIALYSIS PATIEN TS. Revenue Cycle Analyst ID - DBPOCT-GLUCOSE [id number] 21:40:00 Test Item Value Reference Range Interpretation Comments POC-GLUCOSE METER 155 mg/dL 70-110 H : TESTED A T [facility] 6720 (BEAKER) (test code = [facility], 1538) 34889: Revenue Cycle Analyst/Techni tyrone ID = [id number] for GR AHAM, JULIETA POCT-GLUCOSE [id number] 17:15:00 Test Item Value Reference Range Interpretation Comments POC-GLUCOSE METER 175 mg/dL 70-110 H : TESTED A T [facility] 6720 (BEAKER) (test code = [facility], 1538) 35992: Revenue Cycle Analyst/Techni tyrone ID = [id number] for PROFIT-REGJOANNA KATHIEART [id number] 13:59:00 Test Item Value Reference Range Interpretation Comments PARTIAL THROMBOPLASTIN TIME 61.1 seconds 22.5-36.0 H (BEAKER) (test code = 760) POCT-GLUCOSE [id number] 11:53:00 Test Item Value Reference Range Interpretation Comments POC-GLUCOSE METER 231 mg/dL 70-110 H : TESTED A T [facility] 6720 (BEAKER) (test code = [facility] [employer] [facility], 1538) 89823: Revenue Cycle Analyst/Techni tyrone ID = [id number] for EMILY FOY HEMOGLOBIN [id number] 09:03:00 Test Item Value Reference Range Interpretation Comments HEMOGLOBIN A1C (BEAKER) (test code = 8.7 % 4.3-6.1 H 368) TSH/FREE T4 IF [id number] 09:00:00 Test Item Value Reference Range Interpretation Comments THYROID STIMULATING HORMONE 1.553 uIU/mL 0.350-4.940 (BEAKER) (test code = 772) Revenue Cycle Analyst ID - BRIDGET [id number] 07:26:00 Test Item Value Reference Range Interpretation Comments PARTIAL THROMBOPLASTIN TIME 57.8 seconds 22.5-36.0 H (BEAKER) (test code = 760) POCT-GLUCOSE [id number] 07:20:00 Test Item Value Reference Range Interpretation Comments POC-GLUCOSE METER 204 mg/dL 70-110 H : TESTED A T [facility] 6720 (BEAKER) (test code = [facility] Veronica [facility], 1538) [address]: Revenue Cycle Analyst/Techni tyrone ID = [id number] for EMILY FOY CBC W/PLT COUNT & AUTO [id number] 07:14:00 Test Item Value Reference Range Interpretation [...] CONCENTRATION Adequate (CELLAVISION)(BEAKER) (test code = 3438) Revenue Cycle Analyst ID - Samantha Ireland comments: Slide comments:[id number] 01:31:00 Test Item Value Reference Range Interpretation Comments PARTIAL THROMBOPLASTIN TIME 29.1 seconds 22.5-36.0 (BEAKER) (test code = 760) CBC (HEMOGRAM ONLY)2020-07-18 01:14:00 Test Item Value Reference [...] WBC 0-0 (BEAKER) (test code = 413) [id number] 23:48:00 Test Item Value Reference Range Interpretation [...] CONCENTRATION Adequate (CELLAVISION)(BEAKER) (test code = 3438) Revenue Cycle Analyst ID - Barbra comments: Slide comments:POCT-GLUCOSE METER 2020-07-17 21:28:00 Test Item Value Reference Range Interpretation Comments POC-GLUCOSE METER 245 mg/dL 70-110 H : TESTED A T [facility] 6720 (BEAKER) (test code = [facility]UEL SANC[facility] [place], 1538) 18177: Revenue Cycle Analyst/Techni tyrone ID = [id number] for DIEGO JESSY SEKOU BASIC METABOLIC [id number] 21:14:00 Test Item Value Reference Range Interpretation [...] S NOT APPLICABLE FOR DIALYSIS PATIEN TS. Revenue Cycle Analyst ID - [id number] 21:14:00 Test Item Value Reference Range Interpretation Comments MAGNESIUM (BEAKER) (test code = 2.0 mg/dL 1.6-2.6 627) Revenue Cycle Analyst ID - RENYSONHEPATIC FUNCTION [id number] 21:14:00 Test Item Value Reference Range Interpretation [...] (test code = 23 U/L 6-55 347) Revenue Cycle Analyst ID - [id number] 21:07:00 Test Item Value Reference Range Interpretation Comments PROTIME (BEAKER) 14.2 seconds 11.9-14.2 (test code = 759) INR (BEAKER) (test 1.13 See_Comment [Automat ed message] code = 370) The system Context Relevant generated this result transmitted ref erence range: [...] 0-0 (BEAKER) (test code = 413) POCT-GLUCOSE [id number] 18:18:00 Test Item Value Reference Range Interpretation Comments POC-GLUCOSE METER 230 mg/dL 70-110 H : TESTED A T [facility] 6720 (BEAKER) (test code = [facility] [place], 1538) 39346: Revenue Cycle Analyst/Techni tyrone ID = [id number] for DESTINI CRUM BLOOD [id number] 22:00:00 Test Item Value Reference Range Interpretation Comments CULTURE (BEAKER) (test No growth in 5 days code = 1095) BLOOD [id number] 19:00:00 Test Item Value Reference Range Interpretation Comments CULTURE (BEAKER) (test No growth in 5 days code = 1095) SARS-COV2/RT-PCR ([facility])2020-04-26 18:09:00 Test Item Value Reference Range Interpretation Comments SARS-COV2/RT-PCR Negative Not Detected, Performanc e of the Xpert (test code = Negative, See Xpress 1975713) external report SARS-CoV-2/F pauline/RSV test for linked [...] sooner.Fact She et for Healthcare Prov iders: https://www.redIT.[employer]/ Documents/Xpert %20Xpress %64DRBY-BoS-4-F pauline-RSV/30 2-4508%20Rev.%2 0B%20HCP% 20Fact%20Sheet. pdfFact Sheet for Healt hcare Patients: https://www.[employer]/ Documents/Xpert %20Xpress %27YIAZ-NuY-8-F pauline-RSV/30 2-4507%20Rev.%2 0B%20Pati ent%20Fact%20Sh eet.pdf SARS-COV-2 SLSL Performed at:[facility]ING [facility] (test code = [facility] [id number]) [place] [address] ph: [phone] BASIC METABOLIC [id number] 17:46:00 Test Item Value Reference Range Interpretation [...] 1092) DATA TO CALCULA TE ESTIMATED GFR. Revenue Cycle Analyst ID - [id number] ID - [id number] ID - [id number] ID - [id number] ID - [id number] ID - [id number] ID - [id number] ID - [id number] ID - [id number] ID - [id number] ID - [id number] ID - [id number] ID - [id number]- REACTIVE [id number] 17:40:00 Test Item Value Reference Range Interpretation Comments C-REACTIVE PROTEIN (BEAKER) (test 0.41 mg/dL 0.00-0.50 code = 676) Revenue Cycle Analyst ID - [id number] ACID, [id number] 17:38:00 Test Item Value Reference Range Interpretation Comments LACTATE BLOOD 0.75 mmol/L See_Comment [Automated me ssage] VENOUS (2) (BEAKER) The syst em which (test code = 2872) generated this result transmitted ref erence range: 0.50-<2. 00. The reference range was not used to interpr et this result as normal/abnormal . Revenue Cycle Analyst ID - [id number] ID - [id number] ID - [id number] ID - [id number] W/PLT COUNT & AUTO [id number] 17:25:00 Test Item Value Reference Range Interpretation [...] 0-0 H PERCENT (BEAKER) (test code = 8980)
[2021-03-01 19:46] LABS: Absolute Lymphocytes (CBC) 0.6 K/uL (0.7-4.9); Hematocrit 31.3 % (36.0-45.0); Lymphocytes % 5.8 % (15.3-44.8); MPV 8.2 fL (7.6-11.3); RBC Red Blood Cell Count 3.29 M/uL (3.86-4.86)
[2021-03-01 19:50] LABS: Protime INR 1.1
[2021-03-01 20:23] LABS: SARS-COV-2 RT PCR NEGATIVE (NEGATIVE)
[2021-03-01 20:26] LABS: Blood Morphology Comment NOT SEEN (NOT SEEN); Platelet Estimate ADEQ; White Blood Cell Scan OK (OK)
--- NOTE | 2021-03-01 20:45 | RAD REPORT ---
EXAM DESCRIPTION: Rebekah Single View03/01/2021 7:42 pm CLINICAL HISTORY: sob COMPARISON: August 2020 FINDINGS: The lungs appear clear of acute infiltrate. The heart is borderline enlarged IMPRESSION: No acute abnormalities displayed
[2021-03-01 21:19] LABS: ALT/SGPT 30 U/L (12-78); AST/SGOT 11 U/L (15-37); Albumin 2.5 g/dL (3.4-5.0); Alkaline Phosphatase 79 U/L (45-117); BUN Blood Urea Nitrogen 69 mg/dL (7-18); Bicarbonate 21 mmol/L (21-32); Bilirubin Direct < 0.1 mg/dL (0-0.2); Bilirubin Total 0.3 mg/dL (0.2-1.0); Glucose Level 104 mg/dL (74-106); Lipase 161 U/L (73-393); NT PRO-BNP 206 pg/mL (<125); Potassium 4.1 mmol/L (3.5-5.1); Protein, Total 6.3 g/dL (6.4-8.2); Sodium Level 141 mmol/L (136-145)
[2021-03-01] MEDS ORDERED: CLINDAMYCIN 600MG/D5W 600 MG/50 ML BAG IV ONE (21:24)
[2021-03-01] MEDS ORDERED: FENTANYL CITR 100 MCG/2 ML ONE ×2 (21:46→23:18)
[2021-03-01] MEDS ORDERED: NA CHLORIDE 0.9% 1,000 ML ONE (21:47)
--- NOTE | 2021-03-01 22:19 | EDPHYS ---
Physician Documentation [facility] Name: Kathia Phipps Age: 65 yrs Sex: Female : 1955 Arrival Date: 03/01/2021 Time: 18:39 Bed 19 Private MD: ED Physician Devin Morgan HPI: 03/01 20:00 This 65 yrs old Female presents to ER via EMS with complaints of Abdominal rn pain and leaking fluid. 20:00 The patient presents with abdominal pain that is diffuse. Onset: The symptoms/episode rn began/occurred this morning. The symptoms do not radiate. Associated signs and symptoms: Pertinent positives: Chills, Pertinent negatives: diarrhea, vomiting. The symptoms are described as achy, burning. Modifying factors: The symptoms are alleviated by nothing, the symptoms are aggravated by touching the area. Severity of pain: At its worst the pain was moderate in the emergency department the pain is unchanged. The patient has experienced similar episodes in the past. The patient has not recently seen a physician. reports brought her in today for abdominal pain and chills. Reports has chronic abdominal pain and recurrent cellulitis of her pannus. Has been on antibiotics and currently taking antibiotics but does not know what kind of antibiotic. Denies cough. Reports runny nose and congestion. reports skin from pannus has been leaking clear fluid more than normal and the chills is what made him bring her in today.. Historical: - Allergies: 19:00 Cipro PO; ld1 19:00 Clarithromycin; ld1 19:00 Farmiga; ld1 19:00 Farxiga; ld1 19:00 Ibuprofen; ld1 19:00 Januvia; ld1 19:00 Latex, Natural Rubber; ld1 19:00 Levaquin; ld1 19:00 Morphine; ld1 19:00 PENICILLINS; ld1 19:00 sitagliptin; ld1 19:00 Vancomycin; ld1 - Home Meds: 19:00 amlodipine 10 mg tab 1 tab once daily [Active]; MANUEL Ehrman Ortiga and [place] 3 [Active]; ld1 Breo Ellipta 200-25 mcg/dose inhalation dsdv 1 puff once daily [Active]; doxazosin 1 mg Oral tab 1 tab once daily [Active]; furosemide 20 mg Oral tab 1 tab once daily [Active]; levothyroxine 200 mcg tab 1 tab once daily [Active]; losartan 100 mg Oral tab 1 tab once daily [Active]; metoprolol succinate 50 mg Oral Tb24 1 tab once daily [Active]; Novolog Flexpen 100 unit/mL subcutaneous inpn three times a day [Active]; pentoxifylline 400 mg Oral TbER 1 tab daily [Active]; phentermine 37.5 mg Oral tab 1 tab once daily [Active]; potassium chloride 20 mEq Oral TbER 1 tab once daily [Active]; pregabalin Oral 150 mg 3 times per day [Active]; ropinirole 0.2 mg Oral 1 tab once daily [Active]; Savella 100 mg Oral tab 1 tab 2 times per day [Active]; spironolactone 25 mg Oral tab 1 tab once daily [Active]; topiramate 50 mg Oral tab 1 tab 2 times per day [Active]; Tresiba FlexTouch U-200 200 unit/mL (3 mL) subcutaneous inpn twice a day [Active]; Vitamin D Oral [Active]; - PMHx: 19:00 chronic fatigue; Diabetes - IDDM; dyslipidemia; Fibromyalgia; GERD; Hypertension; ld1 Hypothyroidism; Sleep Apnea; vitamin d deficiency; Vitiligo; - Immunization history:: Adult Immunizations not up to date, Client reports having NOT received the Covid vaccine. - Social history:: Smoking status: unknown. - Family history:: not pertinent. - Hospitalizations: : No recent hospitalization is reported. ROS: 20:00 Constitutional: Positive for chills Eyes: Negative for injury, pain, redness, and learning development specialist, ENT: Negative for injury, pain, and discharge, Neck: Negative for injury, pain, and swelling, Cardiovascular: Negative for chest pain, palpitations, and edema, Respiratory: Positive for cough and shortness of breath Abdomen/GI: Positive for abdominal pain MS/Extremity: Negative for injury and deformity, Skin: Positive for leakage of fluid from abdominal wall and legs Neuro: Positive for generalized weakness Exam: 20:00 Constitutional: Morbidly obese female who is laying flat with tachypnea Head/Face: rn Normocephalic, atraumatic. Eyes: Periorbital areas with no swelling, redness, or edema. ENT: Dry mucous membranes, no stridor Cardiovascular: Tachycardic, regular Respiratory: Mild tachypnea, speaking full sentences Abdomen/GI: Large pannus with warmth and erythema and clear drainage along the inferior surface. No fluctuance or masses palpated Skin: Lymphedema both legs without erythema, positive for clear leakage of fluid of legs and abdominal wall MS/ Extremity: Pulses equal, no cyanosis. 2+ pitting edema bilateral lower extremities Neuro: Awake and alert, GCS 15 Vital Signs: 18:45 BP 81 / 49; Pulse 106; Resp 23; Temp 99.3; Pulse Ox 99% 3 lpm ; Weight 205.3 kg (M); bb Height 5 ft. 2 in. (157.48 cm); Pain 10/10; 19:00 BP 74 / 60; Pulse 107; Resp 22; Temp 99.4; yessy 19:00 BP 126 / 85; Pulse 118; Resp 22; Pulse Ox 100% on 2 lpm NC; yessy 20:13 BP 150 / 82; Pulse 107; Resp 20; Temp 99.4; Pulse Ox 100% ; Weight 205.3 kg; Pain 10/10;bb 21:46 BP 146 / 104; Pulse 108; Resp 28; Pulse Ox 95% on 2 lpm NC; Pain 10/10; yessy 21:46 BP 106 / 83; Pulse 102; Resp 24; Pulse Ox 95% on 2 lpm NC; yessy 23:01 BP 107 / 88; Pulse 108; Resp 26; Pulse Ox 98% on 5% Non-rebreather mask; yessy 03/02 00:45 BP 117 / 97; Pulse 111; Resp 22; Temp 99.4; Pulse Ox 100% on 10% Non-rebreather mask; yessy 01:43 BP 78 / 48; Pulse 108; Resp 24; Pulse Ox 96% on 10% Non-rebreather mask; yessy 01:49 BP 104 / 55; Pulse 111; Resp 18; Temp 99.4; Pulse Ox 95% on 5% Non-rebreather mask; yessy 03/01 20:13 Body Mass Index 82.78 (205.30 kg, 157.48 cm) bb MDM: 03/01 19:06 Patient medically screened. rn 20:51 ED course: dealer support technician refuses CT abdomen 2/2 weight. Pt has had CT abdomen before, last rn one here 5 months ago, but they do not want to risk breaking table.. 21:04 ED course: Patient refuses to lay in bed states pannus hurts her and has trouble rn breathing laying flat. is in room holding pannus up visit stripping on the floor. Pain medication ordered. Recommended that she lay in bed and turn to the side to relieve some of the pressure and pain states bed too small for her. Will reevaluate.. 22:16 Differential diagnosis: gastritis, non-specific abd pain, urinary tract infection, rn cellulitis, panniculitis. Data reviewed: vital signs, nurses notes, lab test result(s), radiologic studies, plain films, and as a result, I will admit patient. Counseling: I had a detailed discussion with the patient and/or guardian regarding: the historical points, exam findings, and any diagnostic results supporting the discharge/admit diagnosis, lab results, radiology results, the need for further work-up and treatment in the hospital. Response to treatment: the patient's symptoms have mildly improved after treatment, and as a result, I will admit patient. Admission orders: after a detailed discussion of the patient's condition and case, the admit orders are written by me. ED course: Patient with persistent leakage of fluid from pannus, elevated lactate, low blood pressure initially. Will admit for IV antibiotics and fluid resuscitation. Improved slightly with pain medication.. 03/02 01:05 ED course: Patient still moaning, reports back pain more than abdominal pain, very rn difficult to tell if chronic pain or something acute. Called CT and medications to at least try her on the CT table for CT abdomen pelvis without contrast to rule out something more acute given patient's pain despite 2 doses of fentanyl. dealer support technician states is going to try.. 03/01 19: Order name: Basic Metabolic Panel; Complete Time: 21:23 rn 03/01 19: Order name: Blood Culture Adult (2) rn 03/01 19: Order name: C-Reactive Protein; Complete Time: 21:23 rn 03/01 19: Order name: CBC with Diff; Complete Time: 20:50 rn 03/01 19: Order name: LFT's; Complete Time: 21:23 rn 03/01 19: Order name: Lactate; Complete Time: 20:05 rn 03/01 19: Order name: Lipase; Complete Time: 21:23 rn 03/01 19:17 Order name: Procalcitonin; Complete Time: 20:50 rn 03/01 19:17 Order name: Protime (+inr); Complete Time: 20:50 rn 03/01 19:17 Order name: Ptt, Activated; Complete Time: 20:50 rn 03/01 19:17 Order name: Troponin HS; Complete Time: 21:23 rn 03/01 19:17 Order name: Urine Culture rn 03/01 19:17 Order name: Urine Microscopic Only; Complete Time: 01:03 rn 03/01 19:17 Order name: Chest Single View XRAY; Complete Time: 20:50 rn 03/01 19:17 Order name: Accucheck; Complete Time: 00:42 rn 03/01 19:17 Order name: Cardiac monitoring; Complete Time: 20:10 rn 03/01 19:17 Order name: BNP; Complete Time: 20:50 rn 03/01 19:19 Order name: NT PRO-BNP; Complete Time: 21:23 EDMS 03/01 20:26 Order name: CBC Smear Scan; Complete Time: 20:50 EDMS 03/01 20:57 Order name: Glucose, Ancillary Testing; Complete Time: 20:58 EDMS 03/01 22:28 Order name: COVID-19 SARS RT PCR (Document "Date of Onset" if Symptomatic) bb 03/01 23:23 Order name: ABG la1 03/02 00:04 Order name: Lactate Sepsis 2 HR Follow-up; Complete Time: 01:03 EDMS 03/02 01:04 Order name: CT Abd/Pelvis - Without Contrast rn 03/01 19:17 Order name: Cath rn 03/01 19:17 Order name: EKG - Nurse/Tech; Complete Time: 00:42 rn 03/01 19:17 Order name: IV Saline Lock - Large Bore; Complete Time: 20:10 rn 03/01 19:17 Order name: Labs collected and sent; Complete Time: 20:10 rn 03/01 19:17 Order name: O2 Per Protocol; Complete Time: 20:10 rn 03/01 19:17 Order name: O2 Sat Monitoring; Complete Time: 20:10 rn 03/01 19:17 Order name: Urine Dipstick-Ancillary (obtain specimen); Complete Time: 00:42 rn 03/01 19:24 Order name: Misc. Order: please weigh pt using scale; Complete Time: 20:09 bb Administered Medications: 03/01 22:00 Drug: NS 0.9% 1000 ml Route: IV; Rate: 1000 ml; Site: right forearm; yessy 03/02 00:42 Follow up: Response: No adverse reaction; IV Intake: 1000ml yessy 03/01 22:00 Drug: Clindamycin 600 mg Route: IVPB; Infused Over: 30 mins; Site: right forearm; yessy 22:22 Follow up: IV Intake: 50ml yessy 03/02 00:41 Follow up: Response: No adverse reaction; IV Intake: 50ml yessy 03/01 22:00 Drug: fentaNYL (PF) 50 mcg Route: IVP; Site: right forearm; yessy 23:15 Drug: fentaNYL (PF) 50 mcg Route: IVP; Site: right forearm; yessy 23:51 Follow up: Response: Pain is unchanged, physician notified yessy Disposition Summary: 03/01/21 22:18 Hospitalization Ordered Hospitalization Status: Inpatient Admission rn Provider: Arturo Mercer rn Location: Telemetry/MedSurg (Inpatient) rn Condition: Stable rn Problem: an ongoing problem rn Symptoms: have improved rn Bed/Room Type: Standard rn Room Assignment: 208(03/02/21 00:43) mw Diagnosis - Panniculitis, unspecified rn - Acute kidney failure, unspecified rn Forms: - Medication Reconciliation Form rn - SBAR form rn Signatures: Dispatcher [employer] EDJuana Funes RN Xi Kumar, RN Devin Bynum MD MD rn Attema, Lee, WOVEN WOOD SHADE ASSEMBLER-C WOVEN WOOD SHADE ASSEMBLER-[facility] Thuy Toscano RN RN ld1 Xi Almonte RN RN bo Corrections: (The following items were deleted from the chart) 20:39 19:18 Abdomen Pelvis Wo Con+CT.RAD.BRZ ordered. EDMS EDMS 03/02 00:42 03/01 22:18 rn mw 03/02 00:43 00:42 227 mw mw
--- NOTE | 2021-03-01 22:19 | ER ---
Nurse's Notes [facility] Name: Kathia Phipps Age: 65 yrs Sex: Female : 1955 Arrival Date: 03/01/2021 Time: 18:39 Bed 19 Private MD: Diagnosis: Panniculitis, unspecified;Acute kidney failure, unspecified Presentation: 03/01 18:45 Chief complaint: Patient states: "I'm hurting everywhere", at bedside reports ld1 pt likely has an infection on her panus as it's been leaking and red for over a year, states they've been to several specialists and "nothing was done". EMS states: Generalized pain- per EMS, pt from home, c/o generalized pain onset this morning, PMH htn, COPD, CHF, Fibromyalgia, HTN, Lymphedema, BP 102/50, 98.5F, 96% on NC3LPM. Coronavirus screen: Vaccine status: Patient reports being unvaccinated. Client denies travel out of the [place] in the last 14 days. Ebola Screen: Patient negative for fever greater than or equal to 101.5 degrees Fahrenheit, and additional compatible Ebola Virus Disease symptoms Patient denies exposure to infectious person. Patient denies travel to an Ebola-affected area in the 21 days before illness onset. Initial Sepsis Screen: Does the patient meet any 2 criteria? RR > 20 per min. Systolic BP < 90 mmHg. HR > 90 bpm. Yes Does the patient have a suspected source of infection? Yes: Other: leaking panus. Risk Assessment: Do you want to hurt yourself or someone else? Patient reports no desire to harm self or others. Onset of symptoms is unknown. 18:45 Method Of Arrival: EMS: [facility] ld1 18:45 Acuity: [facility] 2 ld1 Triage Assessment: 19:00 General: Appears uncomfortable, obese, Behavior is agitated, anxious, fussy, restless. ld1 Pain: Complains of pain in generalized pain. Historical: - Allergies: 19:00 Cipro PO; ld1 19:00 Clarithromycin; ld1 19:00 Farmiga; ld1 19:00 Farxiga; ld1 19:00 Ibuprofen; ld1 19:00 Januvia; ld1 19:00 Latex, Natural Rubber; ld1 19:00 Levaquin; ld1 19:00 Morphine; ld1 19:00 PENICILLINS; ld1 19:00 sitagliptin; ld1 19:00 Vancomycin; ld1 - Home Meds: 19:00 amlodipine 10 mg tab 1 tab once daily [Active]; MANUEL Herman Ortiga and [place] 3 [Active]; ld1 Breo Ellipta 200-25 mcg/dose inhalation dsdv 1 puff once daily [Active]; doxazosin 1 mg Oral tab 1 tab once daily [Active]; furosemide 20 mg Oral tab 1 tab once daily [Active]; levothyroxine 200 mcg tab 1 tab once daily [Active]; losartan 100 mg Oral tab 1 tab once daily [Active]; metoprolol succinate 50 mg Oral Tb24 1 tab once daily [Active]; Novolog Flexpen 100 unit/mL subcutaneous inpn three times a day [Active]; pentoxifylline 400 mg Oral TbER 1 tab daily [Active]; phentermine 37.5 mg Oral tab 1 tab once daily [Active]; potassium chloride 20 mEq Oral TbER 1 tab once daily [Active]; pregabalin Oral 150 mg 3 times per day [Active]; ropinirole 0.2 mg Oral 1 tab once daily [Active]; Savella 100 mg Oral tab 1 tab 2 times per day [Active]; spironolactone 25 mg Oral tab 1 tab once daily [Active]; topiramate 50 mg Oral tab 1 tab 2 times per day [Active]; Tresiba FlexTouch U-200 200 unit/mL (3 mL) subcutaneous inpn twice a day [Active]; Vitamin D Oral [Active]; - PMHx: 19:00 chronic fatigue; Diabetes - IDDM; dyslipidemia; Fibromyalgia; GERD; Hypertension; ld1 Hypothyroidism; Sleep Apnea; vitamin d deficiency; Vitiligo; - Immunization history:: Adult Immunizations not up to date, Client reports having NOT received the Covid vaccine. - Social history:: Smoking status: unknown. - Family history:: not pertinent. - Hospitalizations: : No recent hospitalization is reported. Screenin:17 Abuse screen: Denies threats or abuse. Denies injuries from another. Nutritional yessy screening: No deficits noted. Tuberculosis screening: No symptoms or risk factors identified. Fall Risk IV access (20 points). Assessment: 18:45 General: Appears distressed, uncomfortable, histrionic. Pain: Complains of pain in yessy screaming "it hurts". Neuro: No deficits noted. Cardiovascular: No deficits noted. Respiratory: No deficits noted. GI: grossly obese. EENT: No deficits noted. Derm: Pt has an extremely large panus that is weeping and foul smelling. The pt and her s.o. report that this has been the case, but the pt has not been able to have the panus removed, due to not having bariatric surgery. Musculoskeletal: No deficits noted. 22:18 General: The MDs and RNs were able to move the pt to another bed, an inpatient bed, due yessy to her inability to get back into the ER stretcher. We also moved her room to #19. The pt's also assisted, but the move required 9 others. We were able to use blankets and move the pt from the chair, to the floor, to the new bed. The pt was unable, or unwilling, to assist at all. She has been medicated for pain, but continues to call out that her "panus hurts". . 03/02 00:38 General: The pt remains restless and anxious. Her remains at bedside. The F/C yessy that was placed, was being pinched between her grossly obese labial folds, so much so, that urine was draining scantly and it was difficult to deflate the balloon holding it in place, without the assist of her , helping hold her legs open and her panus up. She has been medicated x 2 for pain, but c/o pain to her back, legs, panus, etc. MD aware and all efforts are being made to make her more comfortable. . 00:46 General: The pt has a bed assignment of 206 and I am calling report. . yessy 00:50 General: Per the RN, the pt is not available to take report and will call back. . yessy 00:57 General: I am calling report to the floor, for the nurse 208. They said she still isn't yessy available, but will call me back, within 5. . 01:10 General: The MD wants the pt to have her scans done, before she goes to the floor. He yessy was just at bedside and informed me of this. When the RN from upstairs calls back, I'll tell her it will wait. . 01:39 General: The pt was taken, via bed, using 5 nurses, to the CT scanner. The pt tolerated yessy it well. . 01:48 General: I'm attempting to call report on the pt, to the nurse for 208. . yessy 01:54 General: Report called. . yessy 02:07 General: asked for me to transfer the pt, until the results from the scan come back. yessy In the meantime, I'll round up help to push the pt upstairs. . 02:13 General: Admitting has "switched" the pt and has replaced the wristband. Awaiting CT yessy results, so we can transfer her to the floor. . 02:46 General: Pt taken to floor with RT, on a Cpap, the pt's and 2 nurses. . yessy Vital Signs: 03/01 18:45 BP 81 / 49; Pulse 106; Resp 23; Temp 99.3; Pulse Ox 99% 3 lpm ; Weight 205.3 kg (M); bb Height 5 ft. 2 in. (157.48 cm); Pain 10/10; 19:00 BP 74 / 60; Pulse 107; Resp 22; Temp 99.4; yessy 19:00 BP 126 / 85; Pulse 118; Resp 22; Pulse Ox 100% on 2 lpm NC; yessy 20:13 BP 150 / 82; Pulse 107; Resp 20; Temp 99.4; Pulse Ox 100% ; Weight 205.3 kg; Pain 10/10;bb 21:46 BP 146 / 104; Pulse 108; Resp 28; Pulse Ox 95% on 2 lpm NC; Pain 10/10; yessy 21:46 BP 106 / 83; Pulse 102; Resp 24; Pulse Ox 95% on 2 lpm NC; yessy 23:01 BP 107 / 88; Pulse 108; Resp 26; Pulse Ox 98% on 5% Non-rebreather mask; yessy 03/02 00:45 BP 117 / 97; Pulse 111; Resp 22; Temp 99.4; Pulse Ox 100% on 10% Non-rebreather mask; yessy 01:43 BP 78 / 48; Pulse 108; Resp 24; Pulse Ox 96% on 10% Non-rebreather mask; yessy 01:49 BP 104 / 55; Pulse 111; Resp 18; Temp 99.4; Pulse Ox 95% on 5% Non-rebreather mask; yessy 03/01 20:13 Body Mass Index 82.78 (205.30 kg, 157.48 cm) bb ED Course: 03/01 18:39 Patient arrived in ED. ds1 19:00 Triage completed. ld1 19:00 monitoring analyst on. Pulse ox on. NIBP on. Warm blanket given. yessy 19:06 Devin Morgan MD is Attending Physician. rn 19:43 Chest Single View XRAY In Process Unspecified. EDMS 20:04 Notified ED physician of a critical lab result(s). Lactate 2.6. lp1 20:08 Xi Almonte, RN is Primary Nurse. yessy 20:09 NT PRO-BNP Sent. yessy 20:12 Basic Metabolic Panel Sent. yessy 20:12 Blood Culture Adult (2) Sent. yessy 20:12 C-Reactive Protein Sent. yessy 20:12 LFT's Sent. yessy 20:12 Lipase Sent. yessy 20:12 Procalcitonin Sent. yessy 20:12 Troponin HS Sent. yessy 22:18 Arturo Mercer DO is Hospitalizing Provider. rn 03/02 00:43 Arm band placed on right wrist. yessy 00:43 Urine Microscopic Only Sent. yessy 00:43 Getting the pt into the chair, off the chair and into a lower bed, ABG, F/C, etc. yessy Inserted saline lock: 18 gauge 20 gauge in right antecubital area, using aseptic technique. forearm, using aseptic technique. 00:47 Bed in low position. Side rails up X2. yessy Administered Medications: 03/01 22:00 Drug: NS 0.9% 1000 ml Route: IV; Rate: 1000 ml; Site: right forearm; yessy 03/02 00:42 Follow up: Response: No adverse reaction; IV Intake: 1000ml yessy 03/01 22:00 Drug: Clindamycin 600 mg Route: IVPB; Infused Over: 30 mins; Site: right forearm; yessy 22:22 Follow up: IV Intake: 50ml yessy 03/02 00:41 Follow up: Response: No adverse reaction; IV Intake: 50ml yessy 03/01 22:00 Drug: fentaNYL (PF) 50 mcg Route: IVP; Site: right forearm; yessy 23:15 Drug: fentaNYL (PF) 50 mcg Route: IVP; Site: right forearm; yessy 23:51 Follow up: Response: Pain is unchanged, physician notified yessy Intake: 22:22 IV: 50ml; Total: 50ml. yessy 03/02 00:41 IV: 50ml; Total: 100ml. yessy 00:42 IV: 1000ml; Total: 1100ml. yessy Outcome: 03/01 22:18 Decision to Hospitalize by Provider. rn 03/02 02:47 Patient left the ED. yessy Signatures: Dispatcher [employer] EDMS AranaIzabel ds1 Xi Nur RN RN bb Dvein Morgan MD MD rn Pena, Laura, RN RN lp1 Thuy Toscano RN RN ld1 Xi Almonte RN RN yessy Corrections: (The following items were deleted from the chart) 03/01 19:55 18:45 BP 81 / 49; Pulse 106bpm; Resp 23bpm; Pulse Ox 99% 3 lpm; Temp 99.3F; 190.51 kg; bb Height 5 ft. 2 in.; BMI: 76.8; Pain 10/10; ld1 23:14 20:13 BP 150 / 82; Pulse 107bpm; Resp 20bpm; Pulse Ox 100%; Temp 99.4F; 204.57 kg; BMI: bb 82.4; Pain 10/10; yessy
--- NOTE | 2021-03-01 23:48 | P.HP ---
Certification for Inpatient Patient admitted to: Inpatient With expected LOS: >2 Midnights Patient will require the following post-hospital care: None Practitioner: I am a practitioner with admitting privileges, knowledge of patient current condition, hospital course, and medical plan of care. Services: Services provided to patient in accordance with Admission requirements found in Title 42 Section 412.3 of the Code of Federal Regulations Patient History Date of Service: 03/01/21 Primary Care Provider: Dr. Mireles Reason for admission: Panniculitis History of Present Illness: 65-year-old morbidly obese female with history of recurrent panniculitis, CKD 4, diabetes mellitus type 2, hypertension, hypothyroidism, restless leg syndrome, sleep apnea, COPD, DVT on chronic anticoagulation therapy, chronic diastolic congestive heart failure presents the emergency department for abdominal pain, weeping, redness as well as generalized weakness. Patient with multiple bouts of recurrent panniculitis in the past requiring prolonged durations of IV antibiotics and multiple hospitalizations at LTAC facilities. Patient attempting to have weight loss surgery as well but this is not worked out between her insurance company and the bariatric surgeon who recommended losing additional weight which she has been unable to accomplish this time. Patient was evaluated here in the emergency department today labs were significant for hemoglobin 10 hematocrit 31.3 with blood cell count 9.9 procalcitonin 1.65 creatinine 2.24 GFR 22 lactic acid 2.6 C-reactive protein 11.3 BNP 206 urinalysis pending. Unable to obtain CT scan as patient is above the weight limit for machine. Unable to transfer patient either given all facil ities are on diversion. ED provider wishes to admit for further evaluation and management of recurrent panniculitis Allergies dapagliflozin [From Farxiga] Allergy (Verified 07/12/20:31) dry mouth, stomach cramps latex Allergy (Verified 07/12/20 01:31) Hives/Rash levofloxacin Allergy (Verified 07/12/20:31) Hives/Rash morphine Allergy (Verified 07/12/20:) Hallucination Penicillins Allergy (Verified 07/12/20:31) Shortness of breath sitagliptin [From Januvia] Allergy (Verified 07/12/20:31) Shortness of breath vancomycin Allergy (Verified 07/12/20:31) Nausea/Vomiting ciprofloxacin Adverse Reaction (Verified 05/31/21 01:31) Anaphylaxis clarithromycin Adverse Reaction (Verified 07/12/20 01:31) Shortness of breath Home Medications: Amlodipine Besylate 10 mg PO DAILY 05/18/20 Doxazosin [Cardura*] 1 mg PO BEDTIME 05/18/20 Furosemide [Lasix*] 20 mg PO DAILYPRN PRN 05/18/20 Insulin Aspart [Novolog Flexpen] 15 units SQ TID 05/18/20 Insulin Degludec [Tresiba Flextouch U-100] 60 units SQ BID 05/18/20 Levothyroxine Sodium [Synthroid] 200 mcg PO DAILY 05/18/20 Losartan Potassium [Cozaar] 100 mg PO DAILY 05/18/20 Metoprolol Succinate [Toprol Xl*] 50 mg PO DAILY 05/18/20 Milnacipran HCl [Savella] 100 mg PO BID 05/18/20 Pentoxifylline 400 mg PO DAILY 05/18/20 Pregabalin [Lyrica] 200 mg PO TID* 05/18/20 Spironolactone [Aldactone*] 25 mg PO DAILY 05/18/20 Topiramate [Topiramate ER] 1 tab PO BID 05/18/20 Vit D3/Vit K2/Calc Frutoborate [Move Free [id number]-[id number]-U0-D3] 2,000 iu PO DAILY 05/18/20 Phentermine HCl 1 tab PO DAILY 07/12/20 Apixaban [Eliquis] 5 mg PO BID #60 tablet 07/22/20 Dulaglutide [Trulicity] 0.75 mg SQ EVERY 7TH DAY 08/22/20 Acetylcyst 20% Oral Deb [Mucomyst 20% (ORAL)*] 3 ml PO BID #60 ml 08/26/20 Albuterol Neb [Proventil 0.083% Neb Soln] 2.5 mg NEB [id number] #60 amp 08/26/20 Apixaban [Eliquis] 5 mg PO BID #60 tablet 08/26/20 Arformoterol Tartrate [Brovana] 15 mcg NEB BIDRESP #60 vial.neb 08/26/20 Cholecalciferol (Vitamin D3) [Vitamin D 5,000 IU Cap*] 5,000 unit PO DAILY #30 cap 08/26/20 Fluconazole [Diflucan] 200 mg PO DAILY #14 tablet 08/26/20 Hydrocodone 7.5/APAP 325 [Eagle 7.5/325 mg*] 1 tab PO Q6H PRN #30 tab 08/26/20 Insulin Glargine Human [Lantus*] 12 units SQ BID #10 ml 08/26/20 Ipratropium Neb [Atrovent*] 0.5 mg NEB [id number] PRN #60 amp 08/26/20 Nystatin 5 ml PO TID #300 ml 08/26/20 Ondansetron [Zofran*] 4 mg IV Q6HP PRN #20 vial 08/26/20 - Past Medical/Surgical History Diabetic: Yes -: DM, CHF, recurrent panniculitis -: HTN -: Hypothyroidism -: Morbid obesity -: Gerd -: Fibromyalgia -: Depression -: COPD on home oxygen -: dyslipidemia -: DVT on chronic anticoagulation therapy -: OBSTRUCTIVE sleep apnea -: VITILIGO; CHRONIC MIGRAINES; DM NEUROPATHY -: R Heel spur repair -: Tubal ligation Psychosocial/ Personal History: She is and lives at home. She has 3 children - Family History Father -: Heart disease, Hypertension, Diabetes, Stroke Notes: STELLA'S DISEASE. Mother -: Heart disease, Cancer Notes: MYASTHENIA GRAVIS. breast ca. still living - Social History Smoking Status: Never smoker Alcohol use: No CD- Drugs: No Caffeine use: Yes Place of Residence: Home Review of Systems 10-point ROS is otherwise unremarkable General: Chills, Weakness, Malaise Respiratory: Shortness of Breath Gastrointestinal: Abdominal Pain, Other (Abdominal wound/ulceration with purulent drainage) Physical Examination - Physical Exam General: Alert, In no apparent distress, Oriented x3, Obese HEENT: Atraumatic, PERRLA, Mucous membr. moist/pink, EOMI, Sclerae nonicteric Neck: Supple, 2+ carotid pulse no bruit, No LAD, Without JVD or thyroid abnormality Respiratory: Diminished Cardiovascular: Regular rate/rhythm, Normal S1 S2 Capillary refill: <2 Seconds Gastrointestinal: Normal bowel sounds, Soft and benign, No tenderness, Other (Morbidly obese, weeping ulcerations present, some mild purulent drainage) Musculoskeletal: No tenderness Integumentary: No rashes Neurological: Normal speech, Normal strength at 5/5 x4 extr, Normal tone, Normal affect - Studies Laboratory Data (last 24 hrs) 03/01/21 19:30: PT 12.7 H, INR 1.10, APTT 30.4 03/01/21 19:30: WBC 9.90, Hgb 10.0 L, Hct 31.3 L, Plt Count 213 03/01/21 19:30: Sodium 141, Potassium 4.1, BUN 69 H, Creatinine 2.24 H, Glucose 104, Total Bilirubin 0.3, AST 11 L, ALT 30, Alkaline Phosphatase 79, Lipase 161 Assessment and Plan - Plan Assessment: Recurrent panniculitis with multiple ulcerations complicated with morbid obesity Diabetes mellitus type 2insulin-dependent COPD on chronic home oxygen therapy History of DVT on chronic anticoagulation therapy Chronic diastolic congestive heart failure CKD 4 Hypertension Hypothyroidism Restless leg syndrome SCOUT Plan: Recurrent panniculitis with multiple ulcerations complicated with morbid obesity: Blood cultures, wound cultures ordered. Infectious disease, wound healing center consulted. Patient previously treated with cefepime/Zyvox given her multiple drug allergies, will continue with cefepime/Zyvox at this time and await further recommendations from infectious disease and wound healing. Patient attempting to have bariatric surgery performed but has been unable to lose weight required to have procedure performed Diabetes mellitus type 2insulin-dependent: A [facility] Accu-Chek, sliding scale insulin therapy. We will continue patient's home dose of insulin after verified. COPD on chronic home oxygen therapy: Continue supplemental oxygen as needed, will provide with as needed nebulizer treatments. History of DVT on chronic anticoagulation therapy: Continue Eliquis 5 mg p.o. twice daily Chronic diastolic congestive heart failure: Continue medications once verified. Monitor on telemetry. CKD 4: Nephrology consulted Hypertension: Obtain and continue home medications Hypothyroidism: Obtain and continue home medications Restless leg syndrome: Obtain and continue home medications SCOUT: CPAP at night DVT PPX: Continue Eliquis Code status: Full code Discharge Plan: LTAC Plan to discharge in: Greater than 2 days - Advance Directives Does patient have a Living Will: No Does patient have a Durable POA for Healthcare: No - Code Status/Comfort Care Code Status Assessed: Yes (Full code) Critical Care: No Time Spent Managing Pts Care (In Minutes): 55
[2021-03-02 00:57] LABS: Urine Bacteria <20 /HPF (<20); Urine RBC 20-50 /HPF (NONE SEEN)
[2021-03-02] MEDS ORDERED: HYDROCODONE/APAP 10/325 TAB PO PRN (02:03)
[2021-03-02] MEDS ORDERED: FENTANYL CITR 100 MCG/2 ML IV PRN (02:03)
[2021-03-02] MEDS ORDERED: ONDANSETRON 4 MG/2 ML VIAL IV PRN (02:03)
[2021-03-02 05:10] VITALS: BP 115/53; TEMP 97.6
[2021-03-02 05:12] VITALS: BMI 82.7
--- NOTE | 2021-03-02 05:53 | P.PN ---
Subjective Date of Service: 03/02/21 Primary Care Provider: Dr. Mireles Chief Complaint: Panniculitis Subjective: Other (Patient with poor response to pain and voice. Patient on BiPAP.) Physical Examination - Vital Signs Temperature: 97.6 F Blood Pressure: 115/53 Pulse: 86 Respirations: 19 Pulse Ox (%): 100 - Studies Laboratory Data (last 24 hrs) 03/01/21 19:30: PT 12.7 H, INR 1.10, APTT 30.4 03/01/21 19:30: WBC 9.90, Hgb 10.0 L, Hct 31.3 L, Plt Count 213 03/01/21 19:30: Sodium 141, Potassium 4.1, BUN 69 H, Creatinine 2.24 H, Glucose 104, Total Bilirubin 0.3, AST 11 L, ALT 30, Alkaline Phosphatase 79, Lipase 161 Assessment & Plan Discharge Plan: LTAC Plan to discharge in: Greater than 2 days Physician Review Additional Text: COVID: negative Initial CXR: COMPARISON: August 2020 FINDINGS: The lungs appear clear of acute infiltrate. The heart is borderline enlarged IMPRESSION: No acute abnormalities displayed CT scan: No evidence of nephrolithiasis and/or hydronephrosis Cholelithiasis Mild fecal stasis Bilateral focal areas of opacity to the posterior segment of the lower lobes. CXR 03/02/2021: COMPARISON: Chest Single View dated 03/01/2021; Chest Single View dated 08/22/2020; Chest Single View dated 07/11/2020; Chest Single View dated 05/26/2020; Abdomen Pelvis Wo Contrast dated 03/02/2021 FINDINGS: Lines: None. Lungs: Low lung volumes with basilar opacities, left greater than right. . Pleural: No significant pleural effusions or pneumothorax. Cardiac: The heart size is within normal limits. Bones: No acute fractures IMPRESSION: Low lung volume with basilar airspace disease, left greater than right they could reflect atelectasis, aspiration, and/or pneumonia . Physical Exam: General: Poor response to pain. Patient obtunded. Vital signs stable HEENT: Neck supple Respiratory: Diminished currently on BiPAP Cardiovascular: Regular rate/rhythm, Normal S1 S2 Capillary refill: <2 Seconds Gastrointestinal: Normal bowel sounds, Soft and benign, No tenderness, Other (large pannus noted. Morbidly obese, weeping ulcerations present, some mild purulent drainage) Musculoskeletal: No tenderness Integumentary: Some edema to the lower extremities. Neurological: Patient obtunded Impression: Septic shock secondary to recurrent panniculitis with multiple ulcerations complicated with morbid obesity Acute on chronic respiratory failure complicated with COPD on home oxygen, hypoventilation syndrome, obstructive sleep apnea, and chronic diastolic CHF Acute on chronic renal disease stage IV with metabolic acidosis, hyperkalemia Diabetes mellitus type 2insulin-dependent History of DVT on chronic anticoagulation therapy Hypertension Hypothyroidism Restless leg syndrome Plan: Septic shock secondary to recurrent panniculitis with multiple ulcerations complicated with morbid obesity: Patient in septic shock. We will transfer patient to the ICU. Case discussed with nephrology, pulmonology. Spoke with respiratory to obtain stat chest x-ray and ABG. They had difficulty doing ABG. Repeat lab this morning showed worsening renal failure with metabolic acidosis and hyperkalemia. Calcium gluconate ordered. Kayexalate to be given. Pulmonology did evaluate the patient. Pulmonology felt patient did not need to be intubated at this time. Patient to be sent to ICU. The patient was then transferred to the ICU. Patient appeared worse. Patient became hypotensive. Fluid bolus given per protocol. Levophed started. Surgery consulted for central line. Difficulty breathing was noted. Anesthesia consulted for intubation. Intubation performed. Patient remained hypotensive. Surgery placed central line. In process of central line placement patient went into asystole. CPR initiated. Multiple rounds of epinephrine, bicarbonate, calcium given. CPR persisted for about 25 minutes. A pulse was obtained. I was able to discuss plan of care with during the course of the morning and again once a pulse was obtained. Advanced directives readdressed. Patient was made DNR. Patient was reassessed. Patient went into asystole. Due to her change in advanced directives patient remain DNR. Patient . Acute on chronic respiratory failure complicated with COPD on home oxygen, hypoventilation syndrome, obstructive sleep apnea, and chronic diastolic CHF: As above Acute on chronic renal disease stage IV with metabolic acidosis, hyperkalemia: As above Diabetes mellitus type 2insulin-dependent: As above History of DVT on chronic anticoagulation therapy: As above Hypertension: As above Hypothyroidism: As above Restless leg syndrome: As above DVT PPX: Continue Eliquis Code status: After CPR patient was made DNR Discharge Plan: Patient has ICU caregreater than 60 minutes Time Spent Managing Pts Care (In Minutes): 60
[2021-03-02] MEDS ORDERED: NA CHLORIDE 0.9% 1,000 ML IV SCH (06:00)
[2021-03-02 06:14] LABS: Absolute Lymphocytes (CBC) 0.7 K/uL (0.7-4.9); Hematocrit 30.8 % (36.0-45.0); Lymphocytes % 4.6 % (15.3-44.8); RBC Red Blood Cell Count 3.12 M/uL (3.86-4.86)
[2021-03-02 06:15] VITALS: O2SAT 100
[2021-03-02] MEDS ORDERED: LEVOTHYROXINE SOD 0.1 MG TAB PO SCH (06:30)
[2021-03-02] MEDS ORDERED: INSULIN -REGULAR HUMAN 50 UNIT/0.5 ML ML SQ SCH (07:30)
--- NOTE | 2021-03-02 08:53 | P.CNS ---
Date of Consult: 03/02/21 Reason for Consult: ZHANE/ CKD Requesting Physician: Arturo Mercer Primary Care Provider: Dr. Mireles Chief Complaint: Panniculitis History of Present Illness: 65-year-old morbidly obese female with history of recurrent panniculitis, CKD 4, diabetes mellitus type 2, hypertension, hypothyroidism, restless leg syndrome, sleep apnea, COPD, DVT on chronic anticoagulation therapy, chronic diastolic congestive heart failure presents the emergency department for abdominal pain, weeping, redness as well as generalized weakness. Patient with multiple bouts of recurrent panniculitis in the past requiring pr olonged durations of IV antibiotics and multiple hospitalizations at LTAC facilities. Patient attempting to have weight loss surgery as well but this is not worked out between her insurance company and the bariatric surgeon who recommended losing additional weight which she has been unable to accomplish this time. Patient was evaluated here in the emergency department today labs were significant for hemoglobin 10 hematocrit 31.3 with blood cell count 9.9 procalcitonin 1.65 creatinine 2.24 GFR 22 lactic acid 2.6 C-reactive protein 11.3 BNP 206 urinalysis pending. Unable to obtain CT scan as patient is above the weight limit for machine. Unable to transfer patient either given all facilities are on diversion. ED provider wishes to admit for further evaluation and management of recurrent panniculitis 20:00 This 65 yrs old Female presents to ER via EMS with complaints of Abdominal rn pain and leaking fluid. 20:00 The patient presents with abdominal pain that is diffuse. Onset: The symptoms/episode rn began/occurred this morning. The symptoms do not radiate. Associated signs and symptoms: Pertinent positives: Chills, Pertinent negatives: diarrhea, vomiting. The symptoms are described as achy, burning. Modifying factors: The symptoms a re alleviated by nothing, the symptoms are aggravated by touching the area. Severity of pain: At its worst the pain was moderate in the emergency department the pain is unchanged. The patient has experienced similar episodes in the past. The patient has not recently seen a physician. reports brought her in today for abdominal pain and chills. Reports has chronic abdominal pain and recurrent cellulitis of her pannus. Has been on antibiotics and currently taking antibiotics but does not know what kind of antibiotic. Denies cough. Reports runny nose and congestion. reports skin from pannus has been leaking clear fluid more than normal and the chills is what made him bring her in today.. Allergies dapagliflozin [From Farxiga] Allergy (Verified 07/12/20:31) dry mouth, stomach cramps latex Allergy (Verified 07/12/20 01:31) Hives/Rash levofloxacin Allergy (Verified 07/12/20:) Hives/Rash morphine Allergy (Verified 07/12/20:) Hallucination Penicillins Allergy (Verified 07/12/20:) Shortness of breath sitagliptin [From Januvia] Allergy (Verified 07/12/20:) Shortness of breath vancomycin Allergy (Verified 07/12/20:) Nausea/Vomiting ciprofloxacin Adverse Reaction (Verified 07/12/20:) Anaphylaxis clarithromycin Adverse Reaction (Verified 07/12/20:) Shortness of breath Home medications list reviewed: Yes Home Medications: Amlodipine Besylate 10 mg PO DAILY 05/18/20 Doxazosin [Cardura*] 1 mg PO BEDTIME 05/18/20 Furosemide [Lasix*] 20 mg PO DAILYPRN PRN 05/18/20 Insulin Aspart [Novolog Flexpen] 15 units SQ TID 05/18/20 Insulin Degludec [Tresiba Flextouch U-100] 60 units SQ BID 05/18/20 Levothyroxine Sodium [Synthroid] 200 mcg PO DAILY 05/18/20 Losartan Potassium [Cozaar] 100 mg PO DAILY 05/18/20 Metoprolol Succinate [Toprol Xl*] 50 mg PO DAILY 05/18/20 Milnacipran HCl [Savella] 100 mg PO BID 05/18/20 Pentoxifylline 400 mg PO DAILY 05/18/20 Pregabalin [Lyrica] 200 mg PO TID* 05/18/20 Spironolactone [Aldactone*] 25 mg PO DAILY 05/18/20 Topiramate [Topiramate ER] 1 tab PO BID 05/18/20 Vit D3/Vit K2/Calc Frutoborate [Move Free Cyvnv-Mjkonx-Z4-D3] 2,000 iu PO DAILY 05/18/20 Phentermine HCl 1 tab PO DAILY 07/12/20 Apixaban [Eliquis] 5 mg PO BID #60 tablet 07/22/20 Dulaglutide [Trulicity] 0.75 mg SQ EVERY 7TH DAY 08/22/20 Acetylcyst 20% Oral Deb [Mucomyst 20% (ORAL)*] 3 ml PO BID #60 ml 08/26/20 Albuterol Neb [Proventil 0.083% Neb Soln] 2.5 mg NEB [id number] #60 amp 08/26/20 Apixaban [Eliquis] 5 mg PO BID #60 tablet 08/26/20 Arformoterol Tartrate [Brovana] 15 mcg NEB BIDRESP #60 vial.neb 08/26/20 Cholecalciferol (Vitamin D3) [Vitamin D 5,000 IU Cap*] 5,000 unit PO DAILY #30 cap 08/26/20 Fluconazole [Diflucan] 200 mg PO DAILY #14 tablet 08/26/20 Hydrocodone 7.5/APAP 325 [[place] 7.5/325 mg*] 1 tab PO Q6H PRN #30 tab 08/26/20 Insulin Glargine Human [Lantus*] 12 units SQ BID #10 ml 08/26/20 Ipratropium Neb [Atrovent*] 0.5 mg NEB [id number] PRN #60 amp 08/26/20 Nystatin 5 ml PO TID #300 ml 08/26/20 Ondansetron [Zofran*] 4 mg IV Q6HP PRN #20 vial 08/26/20 - Past Medical/Surgical History Diabetic: Yes -: DM, CHF, recurrent panniculitis -: HTN -: Hypothyroidism -: Morbid obesity -: Gerd -: Fibromyalgia -: Depression -: COPD on home oxygen -: dyslipidemia -: DVT on chronic anticoagulation therapy -: OBSTRUCTIVE sleep apnea -: VITILIGO; CHRONIC MIGRAINES; DM NEUROPATHY -: R Heel spur repair -: Tubal ligation Psychosocial/ Personal History: She is and lives at home. She has 3 children - Family History Father Medical History: Heart disease, Hypertension, Diabetes, Stroke Notes: STELLA'S DISEASE. Mother Medical History: Heart disease, Cancer Notes: MYASTHENIA GRAVIS. breast ca. still living - Social History Smoking Status: Unknown if ever smoked Alcohol use: No CD- Drugs: No Caffeine use: Yes Place of Residence: Home Review of Systems is unable to be obtained Physical Examination Temp Pulse Resp BP Pulse Ox 97.6 F 86 19 115/53 L 100 03/02/21 05:53 03/02/21 05:53 03/02/21 05:53 03/02/21 05:53 03/02/21 05:53 General: Unresponsive, Obese HEENT: Atraumatic Neck: Other (Full) Respiratory: Diminished Cardiovascular: Regular rate/rhythm, Edema Gastrointestinal: Non-distended, No guarding Musculoskeletal: No clubbing, No contractures Integumentary: No cyanosis, Skin breakdown, Skin lesion, Tenderness/swelling, Erythema Laboratory Data (last 24 hrs) 03/01/21 19:30: PT 12.7 H, INR 1.10, APTT 30.4 03/01/21 19:30: WBC 9.90, Hgb 10.0 L, Hct 31.3 L, Plt Count 213 03/01/21 19:30: Sodium 141, Potassium 4.1, BUN 69 H, Creatinine 2.24 H, Glucose 104, Total Bilirubin 0.3, AST 11 L, ALT 30, Alkaline Phosphatase 79, Lipase 161 Imagings Data: EXAM DESCRIPTION: Rebekah Single View03/01/2021 7:42 pm CLINICAL HISTORY: sob COMPARISON: August 2020 FINDINGS: The lungs appear clear of acute infiltrate. The heart is borderline enlarged IMPRESSION: No acute abnormalities displayed Conclusions/Impression: ZHANE in the setting of sepsis CKD with unclear baseline -No NSAIDs Hyperkalemia -Stop spironolactone -Agree with IV Calcium -Give Kayexalate Mixed Acidosis -Continue respiratory support -Levophed to maintain perfusion Diastolic CHF, chronic Acute respiratory failure Suspect hypercapnea -Continue Bipap -Recommend ABG olayinka DM II -RISS Moderate malnutrition -NPO at this time Anemia in chronic illness -Monitor H&H Sepsis/ Septic shock Recurrent Panniculitis in the setting of morbid obesity -Continue Cefepime -Continue Zyvox -Continue Levophed Case reviewed with Dr. Mercer. Addendum: Intubated for worsening respiratory failure. Central line and NGT to be placed olayinka. Critical Care: Yes (>30min)
[2021-03-02] MEDS ORDERED: THIAMINE HCL 100 MG TABLET PO SCH (09:00)
[2021-03-02] MEDS ORDERED: APIXABAN 5 MG TABLET PO SCH (09:00)
[2021-03-02] MEDS ORDERED: DULERA 200/5 (MOMETASONE/FORMOTEROL) INHALER IH SCH (09:00)
[2021-03-02] MEDS ORDERED: FOLIC ACID 1 MG TABLET PO SCH (09:00)
[2021-03-02] MEDS ORDERED: CEFEPIME 1 GM in NA CHLORIDE 0.9% 100 ML IV SCH (09:00)
[2021-03-02] MEDS ORDERED: PREGABALIN 50 MG CAP PO SCH (09:00)
[2021-03-02] MEDS ORDERED: SPIRONOLACTONE 25 MG TABLET PO SCH (09:00)
[2021-03-02] MEDS ORDERED: LINEZOLID 600 MG IVPB 600 MG/300 ML BAG IV SCH (09:00)
--- NOTE | 2021-03-02 09:02 | RAD REPORT ---
EXAM DESCRIPTION: RAD - Chest Single View - 03/02/2021 8:47 am CLINICAL HISTORY: Acute resp. failure, COPD COMPARISON: Chest Single View dated 03/01/2021; Chest Single View dated 08/22/2020; Chest Single View dated 07/11/2020; Chest Single View dated 05/26/2020; Abdomen Pelvis Wo Contrast dated 03/02/2021 FINDINGS: Lines: None. Lungs: Low lung volumes with basilar opacities, left greater than right. . Pleural: No significant pleural effusions or pneumothorax. Cardiac: The heart size is within normal limits. Bones: No acute fractures. Other: IMPRESSION: Low lung volume with basilar airspace disease, left greater than right they could reflec t atelectasis, aspiration, and/or pneumonia .
[2021-03-02 09:03] LABS: Albumin 2.3 g/dL (3.4-5.0); Bilirubin Total 0.7 mg/dL (0.2-1.0); Protein, Total 5.9 g/dL (6.4-8.2); Thyroid Stimulating Hormone 2.5 uIU/mL (0.360-3.740)
[2021-03-02] MEDS ORDERED: CALCIUM GLUC 10% INJ 4.65 MEQ in NA CHLORIDE 0.9% 100 ML IV ONE (09:16)
[2021-03-02] MEDS ORDERED: SODIUM CHLORIDE 0.9% 10ML INJ IV PRN (09:17)
[2021-03-02] MEDS ORDERED: IPRATROPIUM BROM 0.5MG/2.5ML NEB PRN (09:17)
[2021-03-02] MEDS ORDERED: ALBUTEROL 2.5 MG/3 ML NEB SOL NEB PRN (09:17)
[2021-03-02] MEDS ORDERED: propofoL 200 MG/20 ML VIAL IV ONE (09:41)
[2021-03-02] MEDS ORDERED: ROCURONIUM 50 MG/5 ML VIAL IV ONE (09:45)
[2021-03-02] MEDS ORDERED: NOREPINEPHRINE 4 MG in D5W 250 ML IV PRN (09:49)
[2021-03-02] MEDS ORDERED: NA CHLORIDE 0.9% 500 ML IV PRN (09:49)
[2021-03-02] MEDS ORDERED: SOD POLYSTYREN SUL 15 GM/60 ML UCUP FT SCH (10:00)
[2021-03-02] MEDS ORDERED: NOREPINEPHRINE 4 MG in D5W 250 ML IV SCH (10:00)
[2021-03-02] MEDS ORDERED: D5W 1,000 ML with NA BICARB 8.4% 100 MEQ IV SCH ×2 (10:00)
[2021-03-02] MEDS ORDERED: HEPARIN 500 UNIT/5 ML SYR IV ONE (10:11)
--- NOTE | 2021-03-02 10:56 | P.DS ---
Admission Date: 03/01/21 Discharge Date: 03/02/21 Primary Care Provider: Dr. Mireles Disposition: Reason for Admission: Panniculitis Consultations: Pulmonary-Dr. Webster Nephrology-Dr. Bradford DOMINGO-Dr. Casey Surgery-Dr. Polanoc Anesthesia-Dr. Casarez Procedures: COVID: negative Initial CXR: COMPARISON: August 2020 FINDINGS: The lungs appear clear of acute infiltrate. The heart is borderline enlarged IMPRESSION: No acute abnormalities displayed CT scan: No evidence of nephrolithiasis and/or hydronephrosis Cholelithiasis Mild fecal stasis Bilateral focal areas of opacity to the posterior segment of the lower lobes. CXR 03/02/2021: COMPARISON: Chest Single View dated 03/01/2021; Chest Single View dated 08/22/2020; Chest Single View dated 07/11/2020; Chest Single View dated 05/26/2020; Abdomen Pelvis Wo Contrast dated 03/02/2021 FINDINGS: Lines: None. Lungs: Low lung volumes with basilar opacities, left greater than right. . Pleural: No significant pleural effusions or pneumothorax. Cardiac: The heart size is within normal limits. Bones: No acute fractures IMPRESSION: Low lung volume with basilar airspace disease, left greater than right they could reflect atelectasis, aspiration, and/or pneumonia . Medical Problem List: Septic shock secondary to recurrent panniculitis with multiple ulcerations complicated with morbid obesity Acute on chronic respiratory failure complicated with COPD on home oxygen, hypoventilation syndrome, obstructive sleep apnea, and acute on chronic diastolic CHF Acute on chronic renal disease stage IV with metabolic acidosis, hyperkalemia Diabetes mellitus type 2insulin-dependent History of DVT on chronic anticoagulation therapy Hypertension Hypothyroidism Restless leg syndrome Brief History of Present Illness: 65-year-old morbidly obese female with history of recurrent panniculitis, CKD 4, diabetes mellitus type 2, hypertension, hypothyroidism, restless leg syndrome, sleep apnea, COPD, DVT on chronic anticoagulation therapy, chronic diastolic congestive heart failure presents the emergency department for abdominal pain, weeping, and generalized weakness. Patient with multiple bouts of recurrent panniculitis in the past requiring prolonged durations of IV antibiotics and multiple hospitalizations at LTAC facilities. Patient attempting to have weight loss surgery as well but this is not worked out between her insurance company and the bariatric surgeon who recommended losing additional weight. In the ER patient was evaluated. Labs shows hemoglobin 10 hematocrit 31.3 with blood cell count 9.9 procalcitonin 1.65 creat inine 2.24 GFR 22 lactic acid 2.6 C-reactive protein 11.3 BNP 206 urinalysis pending. Patient admitted for recurrent panniculitis. Hospital Course: Patient presented with recurrent panniculitis with multiple ulcerations complicated with morbid obesity and other medical problems including COPD on chronic oxygen, hypoventilation syndrome, obstructive sleep apnea, chronic diastolic CHF, chronic renal disease, diabetes, history of DVT on chronic anticoagulation therapy, hypertension, hypothyroidism and restless leg syndrome. Patient was admitted for treatment. When I evaluated the patient early this morning, patient was obtunded. Patient was immediately transferred to ICU. Severe sepsis was suspected. IV fluids, transfer orders to ICU were initiated. Spoke with nephrology, pulmonology concerning patient and plan of care. ABG ordered but could not be obtained due to poor access. Chest x-ray obtained showed poor ventilation. Pulmonology evaluated patient. Pulmonology felt patient did not require intubation at that time but if worsen patient would require intubation. Repeat lab showed worsening renal failure, hyperkalemia, metabolic acidosis. Once the patient was in ICU, patient became hypotensive. Worsening respiratory condition was noted. Anesthesia was called to perform intubation. Intubation was successful. Due to poor access surgery was consulted for central line placement. Upon trying to get access, patient went into asystole. CPR was initiated. Prior to CPR patient had been started on IV fluid bolus and IV Levophed. Multiple rounds of epinephrine, bicarbonate, calcium gluconate was given during CPR. Her condition did not improve. CPR was performed for about 25 minutes until a pulse was finally able to be obtained. Condition still remain critical. Advanced care directives were readdressed with at that time. understood that her condition was grave. Patient was made DNR at that time. Patient with septic shock secondary to recurrent panniculitis with multiple ulcerations complicated with acute on chronic respiratory failure likely related to COPD, hypoventilation syndrome, obstructive sleep apnea, and acute on chronic diastolic CHF. This was further complicated with acute on chronic renal disease stage IV with metabolic acidosis and hyperkalemia. Other longstanding medical problems included diabetes mellitus type 2 insulin-dependent, history of DVT on chronic anticoagulation therapy, hypertension, hypothyroidism, restless leg syndrome, and morbid obesity. Shortly thereafter patient went into asystole. Patient . June she rest in peace. Case discussed in detail with family. Vital Signs/Physical Exam: Temp Pulse Resp BP Pulse Ox 97.6 F 86 19 115/53 L 100 03/02/21 10:55 03/02/21 10:55 03/02/21 10:55 03/02/21 10:55 03/02/21 10:55 General: Other (Patient ) Laboratory Data at Discharge: WBC 14.20 K/uL (4.3-10.9) H D 03/02/21 05:38 Hgb 9.5 g/dL (12.0-15.0) L 03/02/21 05:38 Hct 30.8 % (36.0-45.0) L 03/02/21 05:38 Plt Count 226 K/uL (152-406) 03/02/21 05:38 PT 12.7 SECONDS (9.5-12.5) H 03/01/21 19:30 INR 1.10 03/01/21 19:30 APTT 30.4 SECONDS (24.3-36.9) 03/01/21 19:30 Sodium 139 mmol/L (136-145) 03/02/21 08:12 Potassium 7.0 mmol/L (3.5-5.1) H* D 03/02/21 08:12 BUN 75 mg/dL (7-18) H 03/02/21 08:12 Creatinine 3.62 mg/dL (0.55-1.3) H D 03/02/21 08:12 Glucose 117 mg/dL (74-106) H 03/02/21 08:12 Total Bilirubin 0.7 mg/dL (0.2-1.0) 03/02/21 08:12 AST 208 U/L (15-37) H D 03/02/21 08:12 ALT 163 U/L (12-78) H D 03/02/21 08:12 Alkaline Phosphatase 171 U/L (45-117) H D 03/02/21 08:12 Triglycerides 196 mg/dL (<150) H 03/02/21 08:12 Cholesterol 144 mg/dL (<200) 03/02/21 08:12 HDL Cholesterol 57 mg/dL (40-60) 03/02/21 08:12 Cholesterol/HDL Ratio 2.53 03/02/21 08:12 Lipase 161 U/L (73-393) 03/01/21 19:30 Home Medications: Amlodipine Besylate 10 mg PO DAILY 05/18/20 Doxazosin [Cardura*] 1 mg PO BEDTIME 05/18/20 Furosemide [Lasix*] 20 mg PO DAILYPRN PRN 05/18/20 Insulin Aspart [Novolog Flexpen] 15 units SQ TID 05/18/20 Insulin Degludec [Tresiba Flextouch U-100] 60 units SQ BID 05/18/20 Levothyroxine Sodium [Synthroid] 200 mcg PO DAILY 05/18/20 Losartan Potassium [Cozaar] 100 mg PO DAILY 05/18/20 Metoprolol Succinate [Toprol Xl*] 50 mg PO DAILY 05/18/20 Milnacipran HCl [Savella] 100 mg PO BID 05/18/20 Pentoxifylline 400 mg PO DAILY 05/18/20 Pregabalin [Lyrica] 200 mg PO TID* 05/18/20 Spironolactone [Aldactone*] 25 mg PO DAILY 05/18/20 Topiramate [Topiramate ER] 1 tab PO BID 05/18/20 Vit D3/Vit K2/Calc Frutoborate [Move Free Lxvsm-Vqvmym-P2-D3] 2,000 iu PO DAILY 05/18/20 Phentermine HCl 1 tab PO DAILY 07/12/20 Apixaban [Eliquis] 5 mg PO BID #60 tablet 07/22/20 Dulaglutide [Trulicity] 0.75 mg SQ EVERY 7TH DAY 08/22/20 Acetylcyst 20% Oral Deb [Mucomyst 20% (ORAL)*] 3 ml PO BID #60 ml 08/26/20 Albuterol Neb [Proventil 0.083% Neb Soln] 2.5 mg NEB [id number] #60 amp 08/26/20 Apixaban [Eliquis] 5 mg PO BID #60 tablet 08/26/20 Arformoterol Tartrate [Brovana] 15 mcg NEB BIDRESP #60 vial.neb 08/26/20 Cholecalciferol (Vitamin D3) [Vitamin D 5,000 IU Cap*] 5,000 unit PO DAILY #30 cap 08/26/20 Fluconazole [Diflucan] 200 mg PO DAILY #14 tablet 08/26/20 Hydrocodone 7.5/APAP 325 [[place] 7.5/325 mg*] 1 tab PO Q6H PRN #30 tab 08/26/20 Insulin Glargine Human [Lantus*] 12 units SQ BID #10 ml 08/26/20 Ipratropium Neb [Atrovent*] 0.5 mg NEB [id number] PRN #60 amp 08/26/20 Nystatin 5 ml PO TID #300 ml 08/26/20 Ondansetron [Zofran*] 4 mg IV Q6HP PRN #20 vial 08/26/20 Physician Discharge Instructions: Patient . June she rest in peace. Followup: Gwendolyn Mireles DO [Primary Care Provider] - Time spent managing pt's care (in minutes): 55
--- NOTE | 2021-03-02 11:16 | RAD REPORT ---
EXAM DESCRIPTION: CT - Abdomen Pelvis Wo Contrast - 03/02/2021 6:00 am CLINICAL HISTORY: 65 years, Female, back pain;Abd pain COMPARISON: 08/22/2020. TECHNIQUE: Multiple transaxial tomograms of the abdomen and pelvis were performed from the lung base s to the symphysis pubis 5 mm slice thickness at 5 mm interval reconstruction, without administration of IV and oral contrast. Multiplanar reformats in the sagittal and coronal plane were generated and reviewed. This exam was performed according to our departmental dose-optimization protocol, which includes auto mated exposure control, adjustment of the mA and/or kV according to patient size and/or use of iterat gemma reconstruction technique. FINDINGS: The lack of IV and oral contrast limits evaluation of solid organs, subtle lesions cannot be excluded. An addition there is ringdown artifact within the lower portion of the abdomen/pelvis fr om patient large body habitus The lung bases demonstrated presence of bilateral focal areas of opacity posterior segment lower lobe s perhaps suggesting the possibility of atelectasis and/or bibasilar pneumonia. Grossly the unopacified liver, pancreas, spleen and adrenal glands demonstrate to be within normal li mits, no significant focal lesions were identified. Again there is the presence of radiodensities w ithin the gallbladder corresponding to cholelithiasis. There is no biliary duct dilatation. There is no pericholecystic fluid. The kidneys demonstrate grossly unremarkable. There is no evidence for nephrolithiasis and/or hydro nephrosis. No focal masses were demonstrated. The ureters displays normal appearance with normal caliber, no hydroureter was seen. Grossly the unopacified stomach, small bowel and large bowel demonstrate to be within normal limits. There is no evidence for bowel dilatation/or free air. Mild fecal stasis. The urinary bladder was partially distended with no gross abnormalities. The uterus demonstrate to be within normal limits. No adnexal masses are identified. The aorta demonstrate to be within normal li mits. There is no retroperitoneal lymphadenopathy. There is no evidence for ascites. The bone win dows demonstrate minimal degenerative changes at L4/L5. IMPRESSION: No evidence for nephrolithiasis and/or hydronephrosis. Cholelithiasis. Mild fecal stasis. Bilateral focal areas of opacity posterior segment lower lobes perhaps suggesting the possibility of basilar infiltrate/pneumonia. Electronically signed by: Ramesh Montana MD 03/02/2021 2:06 AM HEMATOLOGY NURSE Due to temporary technical issues with the PACS/Fluency reporting system, reports are being signed by the in house radiologist without review as a courtesy to ensure prompt reporting. The interpreting r adiologist is fully responsible for the content of the report.
--- NOTE | 2021-03-02 11:49 | P.CNS ---
Date of Consult: 03/02/21 Reason for Consult: Respiratory Primary Care Provider: Dr. Mireles Chief Complaint: Respiratory History of Present Illness: Patient is 65 years of age morbidly obese metabolic syndrome has been complaining of severe back pain as per her he deteriorated very rapidly came here to the emergency room was admitted to the floor patient unresponsive unable to get a line was transferred to the ICU later intubated coded and gotten significant medical problems due to underlying obesity Allergies dapagliflozin [From Farxiga] Allergy (Verified 07/12/20:31) dry mouth, stomach cramps latex Allergy (Verified 07/12/20:31) Hives/Rash levofloxacin Allergy (Verified 07/12/20:) Hives/Rash morphine Allergy (Verified 07/12/20:31) Hallucination Penicillins Allergy (Verified 07/12/20:31) Shortness of breath sitagliptin [From Januvia] Allergy (Verified 07/12/20:31) Shortness of breath vancomycin Allergy (Verified 07/12/20:31) Nausea/Vomiting ciprofloxacin Adverse Reaction (Verified 07/12/20:31) Anaphylaxis clarithromycin Adverse Reaction (Verified 07/12/20:31) Shortness of breath Home Medications: Amlodipine Besylate 10 mg PO DAILY 05/18/20 Doxazosin [Cardura*] 1 mg PO BEDTIME 05/18/20 Furosemide [Lasix*] 20 mg PO DAILYPRN PRN 05/18/20 Insulin Aspart [Novolog Flexpen] 15 units SQ TID 05/18/20 Insulin Degludec [Tresiba Flextouch U-100] 60 units SQ BID 05/18/20 Levothyroxine Sodium [Synthroid] 200 mcg PO DAILY 05/18/20 Losartan Potassium [Cozaar] 100 mg PO DAILY 05/18/20 Metoprolol Succinate [Toprol Xl*] 50 mg PO DAILY 05/18/20 Milnacipran HCl [Savella] 100 mg PO BID 05/18/20 Pentoxifylline 400 mg PO DAILY 05/18/20 Pregabalin [Lyrica] 200 mg PO TID* 05/18/20 Spironolactone [Aldactone*] 25 mg PO DAILY 05/18/20 Topiramate [Topiramate ER] 1 tab PO BID 05/18/20 Vit D3/Vit K2/Calc Frutoborate [Move Free Sokmr-Vcpggb-L6-D3] 2,000 iu PO DAILY 05/18/20 Phentermine HCl 1 tab PO DAILY 07/12/20 Apixaban [Eliquis] 5 mg PO BID #60 tablet 07/22/20 Dulaglutide [Trulicity] 0.75 mg SQ EVERY 7TH DAY 08/22/20 Acetylcyst 20% Oral Deb [Mucomyst 20% (ORAL)*] 3 ml PO BID #60 ml 08/26/20 Albuterol Neb [Proventil 0.083% Neb Soln] 2.5 mg NEB [id number] #60 amp 08/26/20 Apixaban [Eliquis] 5 mg PO BID #60 tablet 08/26/20 Arformoterol Tartrate [Brovana] 15 mcg NEB BIDRESP #60 vial.neb 08/26/20 Cholecalciferol (Vitamin D3) [Vitamin D 5,000 IU Cap*] 5,000 unit PO DAILY #30 cap 08/26/20 Fluconazole [Diflucan] 200 mg PO DAILY #14 tablet 08/26/20 Hydrocodone 7.5/APAP 325 [[place] 7.5/325 mg*] 1 tab PO Q6H PRN #30 tab 08/26/20 Insulin Glargine Human [Lantus*] 12 units SQ BID #10 ml 08/26/20 Ipratropium Neb [Atrovent*] 0.5 mg NEB [id number] PRN #60 amp 08/26/20 Nystatin 5 ml PO TID #300 ml 08/26/20 Ondansetron [Zofran*] 4 mg IV Q6HP PRN #20 vial 08/26/20 - Past Medical/Surgical History Diabetic: Yes -: DM, CHF, recurrent panniculitis -: HTN -: Hypothyroidism -: Morbid obesity -: Gerd -: Fibromyalgia -: Depression -: COPD on home oxygen -: dyslipidemia -: DVT on chronic anticoagulation therapy -: OBSTRUCTIVE sleep apnea -: VITILIGO; CHRONIC MIGRAINES; DM NEUROPATHY -: R Heel spur repair -: Tubal ligation Psychosocial/ Personal History: She is and lives at home. She has 3 children - Family History Father Medical History: Heart disease, Hypertension, Diabetes, Stroke Notes: STELLA'S DISEASE. Mother Medical History: Heart disease, Cancer Notes: MYASTHENIA GRAVIS. breast ca. still living - Social History Smoking Status: Unknown if ever smoked Alcohol use: No CD- Drugs: No Caffeine use: Yes Place of Residence: Home Review of Systems is unable to be obtained Physical Examination Temp Pulse Resp BP Pulse Ox 97.6 F 86 19 115/53 L 100 03/02/21 10:55 03/02/21 10:55 03/02/21 10:55 03/02/21 10:55 03/02/21 10:55 General: Comatose Respiratory: Clear to auscultation bilaterally, Diminished Cardiovascular: No edema, Normal S1 S2 Laboratory Data (last 24 hrs) 03/01/21 19:30: PT 12.7 H, INR 1.10, APTT 30.4 03/01/21 19:30: WBC 9.90, Hgb 10.0 L, Hct 31.3 L, Plt Count 213 03/01/21 19:30: Sodium 141, Potassium 4.1, BUN 69 H, Creatinine 2.24 H, Glucose 104, Total Bilirubin 0.3, AST 11 L, ALT 30, Alkaline Phosphatase 79, Lipase 161 - Problems (1) Respiratory failure Current Visit: Yes Status: Acute Plan: Patient is 65 years of age admitted with respiratory failure comatose metabolic syndrome morbid obesity developed multiorgan failure with hyperkalemia probably septic shock CT scan of the abdomen was negative chest x-ray was also clear as some bibasilar atelectasis labs reviewed patient was intubated rapidly deteriorated unable to obtain Coded and Qualifiers: Chronicity: acute on chronic
--- NOTE | 2021-03-02 12:10 | P.CNS ---
Primary Care Provider: Dr. Mireles Chief Complaint: Respiratory History of Present Illness: Patient is a 65-year-old female with an extensive past medical history including diabetes mellitus type 2, morbid obesity, hypertension, hypothyroidism, CKD stage IV, obstructive sleep apnea, recurrent panniculitis, COPD who presented to the emergency department secondary to increased pannus pain/erythema/weeping/swelling. Patient found to be COVID-19 positive. Patient has been hospitalized at this facility several times for recurrent pancolitis and has been on broad-spectrum IV antibiotics. Previous wound cultures grew enteric coccus faecalis, Klebsiella, Pseudomonas aeruginosa, E TC. Patient Per[place]lie placed on cefepime and Zyvox on this admission. History unable to obtain as patient on CODE BLUE in the ICU. Prognosis guarded. Allergies dapagliflozin [From Farxiga] Allergy (Verified 07/12/20 01:31) dry mouth, stomach cramps latex Allergy (Verified 07/12/20 01:31) Hives/Rash levofloxacin Allergy (Verified 07/12/20:31) Hives/Rash morphine Allergy (Verified 07/12/20 01:31) Hallucination Penicillins Allergy (Verified 07/12/20 01:31) Shortness of breath sitagliptin [From Januvia] Allergy (Verified 07/12/20 01:31) Shortness of breath vancomycin Allergy (Verified 07/12/20:31) Nausea/Vomiting ciprofloxacin Adverse Reaction (Verified 07/12/20:31) Anaphylaxis clarithromycin Adverse Reaction (Verified 07/12/20 01:31) Shortness of breath Home Medications: Amlodipine Besylate 10 mg PO DAILY 05/18/20 Doxazosin [Cardura*] 1 mg PO BEDTIME 05/18/20 Furosemide [Lasix*] 20 mg PO DAILYPRN PRN 05/18/20 Insulin Aspart [Novolog Flexpen] 15 units SQ TID 05/18/20 Insulin Degludec [Tresiba Flextouch U-100] 60 units SQ BID 05/18/20 Levothyroxine Sodium [Synthroid] 200 mcg PO DAILY 05/18/20 Losartan Potassium [Cozaar] 100 mg PO DAILY 05/18/20 Metoprolol Succinate [Toprol Xl*] 50 mg PO DAILY 05/18/20 Milnacipran HCl [Savella] 100 mg PO BID 05/18/20 Pentoxifylline 400 mg PO DAILY 05/18/20 Pregabalin [Lyrica] 200 mg PO TID* 05/18/20 Spironolactone [Aldactone*] 25 mg PO DAILY 05/18/20 Topiramate [Topiramate ER] 1 tab PO BID 05/18/20 Vit D3/Vit K2/Calc Frutoborate [Move Free Hnysb-Tdpnax-K1-D3] 2,000 iu PO DAILY 05/18/20 Phentermine HCl 1 tab PO DAILY 07/12/20 Apixaban [Eliquis] 5 mg PO BID #60 tablet 07/22/20 Dulaglutide [Trulicity] 0.75 mg SQ EVERY 7TH DAY 08/22/20 Acetylcyst 20% Oral Deb [Mucomyst 20% (ORAL)*] 3 ml PO BID #60 ml 08/26/20 Albuterol Neb [Proventil 0.083% Neb Soln] 2.5 mg NEB [id number] #60 amp 08/26/20 Apixaban [Eliquis] 5 mg PO BID #60 tablet 08/26/20 Arformoterol Tartrate [Brovana] 15 mcg NEB BIDRESP #60 vial.neb 08/26/20 Cholecalciferol (Vitamin D3) [Vitamin D 5,000 IU Cap*] 5,000 unit PO DAILY #30 cap 08/26/20 Fluconazole [Diflucan] 200 mg PO DAILY #14 tablet 08/26/20 Hydrocodone 7.5/APAP 325 [[place] 7.5/325 mg*] 1 tab PO Q6H PRN #30 tab 08/26/20 Insulin Glargine Human [Lantus*] 12 units SQ BID #10 ml 08/26/20 Ipratropium Neb [Atrovent*] 0.5 mg NEB [id number] PRN #60 amp 08/26/20 Nystatin 5 ml PO TID #300 ml 08/26/20 Ondansetron [Zofran*] 4 mg IV Q6HP PRN #20 vial 08/26/20 - Past Medical/Surgical History Diabetic: Yes -: DM, CHF, recurrent panniculitis -: HTN -: Hypothyroidism -: Morbid obesity -: Gerd -: Fibromyalgia -: Depression -: COPD on home oxygen -: dyslipidemia -: DVT on chronic anticoagulation therapy -: OBSTRUCTIVE sleep apnea -: VITILIGO; CHRONIC MIGRAINES; DM NEUROPATHY -: R Heel spur repair -: Tubal ligation Psychosocial/ Personal History: She is and lives at home. She has 3 children - Family History Father Medical History: Heart disease, Hypertension, Diabetes, Stroke Notes: STELLA'S DISEASE. Mother Medical History: Heart disease, Cancer Notes: MYASTHENIA GRAVIS. breast ca. still living - Social History Smoking Status: Unknown if ever smoked Alcohol use: No CD- Drugs: No Caffeine use: Yes Place of Residence: Home Review of Systems 10-point ROS is otherwise unremarkable Physical Examination Temp Pulse Resp BP Pulse Ox 97.6 F 86 19 115/53 L 100 03/02/21 10:55 03/02/21 10:55 03/02/21 10:55 03/02/21 10:55 03/02/21 10:55 General: Obese Neck: Supple Respiratory: Other (Crackles/rales intubated) Cardiovascular: Other (Diminished due to body habitus) Gastrointestinal: Other (Large pannus with multiple open areas weeping serosanguineous fluid.) Laboratory Data (last 24 hrs) 03/01/21 19:30: PT 12.7 H, INR 1.10, APTT 30.4 03/01/21 19:30: WBC 9.90, Hgb 10.0 L, Hct 31.3 L, Plt Count 213 03/01/21 19:30: Sodium 141, Potassium 4.1, BUN 69 H, Creatinine 2.24 H, Glucose 104, Total Bilirubin 0.3, AST 11 L, ALT 30, Alkaline Phosphatase 79, Lipase 161 Conclusions/Impression: Assessment/plan Recurrent panniculitis Continue broad-spectrum IV antibiotic coverage with cefepime and Zyvox. Cardiopulmonary instability Patient had CODE BLUE in ICU, prognosis guarded Plan of care discussed with Dr. Casey Thank you for consultation
--- NOTE | 2021-03-02 12:59 | OP ---
Date of Procedure: 03/02/2021 Surgeon: Cuong Polanco MD Brief History: The patient is a 65-year-old morbidly obese female, who was admitted with septic shoc k secondary to panniculitis, was found to be close to being apneic. She was being intubated. She catalan d 2 IVs, one of which was questionable and needed a central line. I was consulted. After she was in tubated, I prepped and draped the right neck and chest region. While I was attempting to access the right IJ or the subclavian vein, the patient coded. Her O2 sats were 100%. She flatlined. ACLS pro tocol was started. I aborted this site and then the right groin Betadine was placed and an 18-gauge needle was used to access the femoral vein. Guidewire passed. Seldinger technique used. Vein dilat ed and triple-lumen catheter placed and secured with 3-0 nylon. Sterile dressing applied. Catheter flushed with heparin and packed with heparin with good blood flow. With code continued at this point , the patient was later pronounced. /MODL Voice ID: [id number] Report ID: [id number]
[2021-03-02] MEDS ORDERED: EPINEPHrine 1 MG/10 ML SYR IV ONE (13:59)
[2021-03-02] MEDS ORDERED: Caclcium Chloride 10% INJ SYR IV ONE (13:59)
[2021-03-02] MEDS ORDERED: ARFORMOTEROL TARTRATE 15 MCG/2 ML VIAL.NEB NEB SCH (20:00)
[2021-03-02] MEDS ORDERED: ROPINIROLE HCL 0.25 MG TAB PO SCH (21:00)
[2021-03-03] MEDS ORDERED: LEVOTHYROXINE SODIUM 100 MCG VIAL IV SCH (06:00)
[2021-03-03] MEDS ORDERED: FOLIC ACID 5 MG/ML VIAL IVP SCH (09:00)
[2021-03-03] MEDS ORDERED: THIAMINE 200 MG/2 ML INJ IVP SCH (09:00)
[2021-03-03] MEDS ORDERED: PANTOPRAZOLE 40 MG INJ IVP SCH (09:00)
[2021-03-03] MEDS ORDERED: FOLIC ACID 1 MG in NA CHLORIDE 0.9% 50 ML IV SCH (09:00)
== END 2021-03-02 14:00 | disposition expired | DRG 871 ==
LOC: ER 18:08 → ERHOLD 23:26 → 2ND 03-02 01:58 → 3RD-ICU 03-02 09:05
PROVIDERS: ADMIT Family Medicine; ATTEND Family Medicine
PROC: 5A09357 Assistance with Respiratory Ventilation, Less than 24 Consecutive Hours, Continuous Positive Airway Pressure (ICD-10-PCS; principal; 2021-03-01)
PROC: 5A12012 Performance of Cardiac Output, Single, Manual (ICD-10-PCS; 2021-03-01)
DX: A41.9 Sepsis, unspecified organism (principal); R65.21 Severe sepsis with septic shock; J96.20 Acute and chronic respiratory failure, unspecified whether with hypoxia or hypercapnia; U07.1 COVID-19; N17.9 Acute kidney failure, unspecified; Z68.45 Body mass index [BMI] 70 or greater, adult; I50.32 Chronic diastolic (congestive) heart failure; N18.4 Chronic kidney disease, stage 4 (severe); I13.0 Hypertensive heart and chronic kidney disease with heart failure and stage 1 through stage 4 chronic kidney disease, or unspecified chronic kidney disease; E66.2 Morbid (severe) obesity with alveolar hypoventilation; E87.2 Acidosis; E44.0 Moderate protein-calorie malnutrition; M79.3 Panniculitis, unspecified; E11.22 Type 2 diabetes mellitus with diabetic chronic kidney disease; E03.9 Hypothyroidism, unspecified; K21.9 Gastro-esophageal reflux disease without esophagitis; G25.81 Restless legs syndrome; E87.5 Hyperkalemia; J44.9 Chronic obstructive pulmonary disease, unspecified; D63.8 Anemia in other chronic diseases classified elsewhere; I46.9 Cardiac arrest, cause unspecified; E78.5 Hyperlipidemia, unspecified; Z66 Do not resuscitate; Z88.1 Allergy status to other antibiotic agents; Z88.8 Allergy status to other drugs, medicaments and biological substances; Z88.5 Allergy status to narcotic agent; Z88.0 Allergy status to penicillin; Z91.040 Latex allergy status; Z79.890 Hormone replacement therapy; Z79.4 Long term (current) use of insulin; Z79.899 Other long term (current) drug therapy; Z86.718 Personal history of other venous thrombosis and embolism; Z79.01 Long term (current) use of anticoagulants; Z99.81 Dependence on supplemental oxygen; Z98.51 Tubal ligation status; Z99.89 Dependence on other enabling machines and devices; Z20.822 Contact with and (suspected) exposure to COVID-19
CPT/HCPCS: 0240U; 36415; 71045; 74176; 80048; 80053; 80061; 80076; 81015; 82947; 83605; 83690; 83880; 84145; 84439; 84443; 84484; 85025; 85610; 85730; 86140; 87040; 87086; 87088; 94660; 94760; 96374; 96375; 99285; J0171; J0610; J0692; J1642; J2020; J2704; J3010; J7030; J7060; J7606